=== PATIENT | female | born 1960 | race Two or more races ===

== ENCOUNTER 2018-01-20 23:34 | Emergency (ER) | payer MEDICAID, OTHER ==
[~2018-01-20] VITALS: Ht 154.9 cm; Wt 68.0 kg
[~2018-01-20 23:34] MED LIST: AURALGAN EAR DR14 ML RIGHT EAR; CORTISPORIN EAR10 M1 RIGHT EAR
[2018-01-20] MEDS ORDERED: Morphine Sulfate 4mg/ml Inj (IV USE ONLY) IVP ONE (23:45)
--- NOTE | 2018-01-20 23:47 | Emergency Room Report ---
History of Present Illness General Chief Complaint: Abdominal Pain Source: Patient, Medical Record, EMS Present Illness HPI Is a 57-year-old female with a history of intracranial bleed and is bedbound at a shelter. She has a tracheostomy and feeding tube. She also has a chronic Jones. She presents with chief complaint of abdominal pain and questionable decreased urine output. Per EMS, family said that she has decreased urine output. senior care said that she has adequate urine output. Patient complaining of lower abdominal pain. No nausea no vomiting but no fever or chills. Denies any other complaint. Allergies: Coded Allergies: No Known Allergies (Unverified , 10/21/12) Patient History Past Medical History: see triage record, old chart reviewed, DM, HTN Past Surgical History: other - tracheostomy Pertinent Family History: none Social History: Denies: smoking Now: No Immunizations: other Reviewed Nursing Documentation: PMH: Agreed; PSxH: Agreed Nursing Documentation-PMH Hx Cardiac Problems: Yes - high cholesterol Hx Hypertension: Yes Review of Systems Eye: Denies: eye pain, blurred vision ENT: Denies: ear pain, nose congestion, throat swelling Respiratory: Denies: cough, shortness of breath Cardiovascular: Denies: chest pain, palpitations Gastrointestinal: Reports: abdominal pain; Denies: diarrhea, nausea, vomiting Musculoskeletal: Denies: back pain, joint pain Skin: Denies: rash Neurological: Denies: headache, numbness Endocrine: Denies: increased thirst, increased urine Hematologic/Lymphatic: Denies: easy bruising All Other Systems: negative except mentioned in HPI Physical Exam Vital Signs Date Time Temp Pulse Resp B/P (MAP) Pulse Ox O2 Delivery O2 Flow Rate FiO2 01/20/18 23:30 96.3 84 16 178/93 100 Trach Collar 6.0 96.3 vitals with high blood pressure Sp02 EP Interpretation: reviewed, normal General Appearance: well appearing, no apparent distress, alert Head: normocephalic, atraumatic Eyes: left eye other - Left eye very injected. Yellowish discharge. 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; bilateral eye PERRL, bilateral eye EOMI ENT: hearing grossly normal, normal pharynx, other - tracheostomy Neck: full range of motion, supple, no meningismus Respiratory: chest non-tender, lungs clear, normal breath sounds Cardiovascular #1: regular rate, rhythm, no murmur Gastrointestinal: normal bowel sounds, no mass, no organomegaly, no bruit, non- distended, tenderness - suprapubic Genitourinary: other - Jones with cloudy urine Musculoskeletal: back normal, gait/station normal, normal range of motion Psychiatric: mood/affect normal Skin: warm/dry Medical Decision Making Diagnostic Impression: Primary Impression: UTI (urinary tract infection) Qualified Codes: N30.00 - Acute cystitis without hematuria Additional Impressions: Conjunctivitis Qualified Codes: H10.32 - Unspecified acute conjunctivitis, left eye Constipation Qualified Codes: K59.00 - Constipation, unspecified ER Course Patient presents with abdominal pain and has UTI with constipation. No obstruction. She also junk of it is. Most likely secondary to dryness in the 2 infection. She is blind in that eye. I put a patch over the eye. Lab Results Impression labs unremarkable CT/MRI/US Diagnostic Results CT/MRI/US Diagnostic Results : Imaging Test Ordered: CT abdomen and pelvis Impression Read by radiologist. dense feces compatible with impaction. no evidence of appendicitis. Last Vital Signs Date Time Temp Pulse Resp B/P (MAP) Pulse Ox O2 Delivery O2 Flow Rate FiO2 01/20/18 23:30 96.3 84 16 178/93 100 Trach Collar 6.0 96.3 Status: improved Disposition: XFER SNF Condition: Stable Scripts Lactulose (LACTULOSE*) 20 Gm/30 Ml Solution 30 ML ORAL BID, #240 ML 0 Refills Prov: LLOYD GIL M.D. 01/21/18 Polymyxin/Trimethoprim (Polytrim Eye Drops) 10 Ml Drops 2 DROP OPHTHALM THREE TIMES A DAY, #1 EA Instill in affected eye for 7 days Prov: LLOYD GIL M.D. 01/21/18 Cephalexin* (KEFLEX*) 500 Mg Capsule 500 MG ORAL TID, #21 CAP Prov: LLOYD GIL M.D. 01/21/18 Additional Instructions: Follow-up with your DrThomas in 2 to 3 days if not better. Return if worse. LLOYD GIL M.D. Jan 20, 2018 23:47
[2018-01-21 00:10] LABS: BILIRUBIN, URINE NEGATIVE (NEGATIVE); COLOR,URINE PALE YELLOW; GLUCOSE, URINE (UA) NEGATIVE (NEGATIVE); KETONES,URINE NEGATIVE (NEGATIVE); NITRITE,URINE NEGATIVE (NEGATIVE); PH,URINE 8 (4.5-8.0); PROTEIN,URINE 2+ (NEGATIVE); UROBILINOGEN,URINE NORMAL MG/DL (0.0-1.0)
[2018-01-21 00:17] LABS: BASOPHILS % (AUTO) 1.1 % (0.0-2.0); EOSINOPHILS % (AUTO) 2.7 % (0.0-3.0); HEMATOCRIT 39.4 % (37.0-47.0); HEMOGLOBIN 13.3 G/DL (12.0-16.0); LYMPHOCYTES % (AUTO) 28.2 % (20.0-45.0); MEAN CORPUSCULAR VOLUME 90 FL (80-99); MONOCYTES % (AUTO) 6.3 % (1.0-10.0); NEUTROPHILS % (AUTO) 61.7 % (45.0-75.0); PLATELET COUNT 384 K/UL (150-450); RED BLOOD COUNT 4.39 M/UL (4.20-5.40); RED CELL DISTRIBUTION WIDTH 11.8 % (11.6-14.8); WHITE BLOOD COUNT 13.6 K/UL (4.8-10.8)
[2018-01-21 00:19] LABS: ANION GAP 4 mmol/L (5-15); BLOOD UREA NITROGEN 10 mg/dL (7-18); CALCIUM 9.2 MG/DL (8.5-10.1); CARBON DIOXIDE 37 MMOL/L (21-32); CHLORIDE 102 MMOL/L (98-107); CREATININE 0.4 MG/DL (0.55-1.30); POTASSIUM 3.3 MMOL/L (3.5-5.1); SODIUM 143 MMOL/L (136-145)
[2018-01-21 00:19] LABS: APPEARANCE,URINE CLOUDY; LEUKOCYTE ESTERASE ,URINE 1+ (NEGATIVE)
[2018-01-21 00:30] VITALS: BP 152/91
[2018-01-21] MEDS ORDERED: cefTRIAXone 1 GM in NS 55 ML IVPB ONE (00:45)
[2018-01-21] MEDS ORDERED: Isovue-300 100ml vial INJ PRN (00:45)
[2018-01-21 02:30] VITALS: BP 148/85
[2018-01-21] MEDS ORDERED: LACTULOSE20 GM/301 ORAL (02:52)
[2018-01-21] MEDS ORDERED: CEPHALEXIN500 MG ORAL (02:52)
[2018-01-21] MEDS ORDERED: POLYTRIM OP SOL10 ML OPHTHALM (02:52)
[2018-01-21 04:30] VITALS: BP 146/85
[2018-01-21 04:50] VITALS: BP 148/85
--- NOTE | 2018-01-21 12:03 | Diagnostic Imaging Report ---
Clinical Indication: Abdominal pain for 3 days Technique: No oral contrast utilized, per emergency room physician request IV administration nonionic contrast. Venous phase spiral acquisition obtained through the abdomen and pelvis. Multiplanar reconstructions were generated. Total dose length product 1080.78 mGycm. CTDIvol(s) 19.75 mGy. Dose reduction achieved using automated exposure control Comparison: none Findings: The appendix is normal, best appreciated on the coronal images. Moderate amount of retained stool is seen throughout the colon. There is mild distention of the rectum with feces. No colon wall thickening or significant pericolonic inflammation demonstrated. No small bowel distention. There is a gastrostomy tube in apparent satisfactory position. Distal esophagus, duodenum are unremarkable. No free or loculated intraperitoneal gas or fluid is evident. The liver, gallbladder, bile ducts, pancreas, spleen, adrenals are all unremarkable. The kidneys demonstrate bilateral subcentimeter low-attenuation lesions which are too small to characterize. No renal or ureteral calculi, hydronephrosis, or hydroureter. No retroperitoneal or mesenteric mass or adenopathy. No pelvic mass or adenopathy. The bladder is empty, contains a Jones catheter. There is equivocal bladder wall thickening, versus artifact of under distention The included lung bases demonstrate some confluent opacity, likely scarring, with volume loss and bronchiectasis in the posterior medial left lower lobe. There is a small amount of pleural fluid as well as some compressive atelectasis of portions of the left lower lobe. There is also trace right pleural fluid and some right basilar atelectasis. The heart is enlarged. There is a small pericardial effusion, measures up to 5 mm thick. The bones demonstrate anterior offset of L4 on L5, presumably due to facet degeneration as no pars defect is demonstrated. Subcentimeter low-attenuation renal lesions, too small to characterize, most likely benign simple cortical cysts. No further follow-up necessary heterotopic ossification is seen surrounding the right posterior acetabulum Impression: Evidence of mild rectal fecal impaction Evidence of mild constipation elsewhere in the colon No other acute abnormality Left lower lobe confluent opacity, likely scarring. Associated bronchiectasis. Small amount of pleural fluid seen on the left Trace right pleural fluid and trace right basilar atelectasis Cardiomegaly. Small pericardial effusion Jones catheter. Apparent bladder wall thickening, artifact of under distention but cystitis also possible Other findings as noted, including gastrostomy, lumbar spine alignment abnormality, heterotopic ossification in the right hip/buttock region This agrees with the preliminary interpretation provided overnight by [facility] teleradiology service. . The CT scanner at [facility] is accredited by the [employer] and the scans are performed using protocols designed to limit radiation exposure to as low as reasonably achievable to attain images of sufficient resolution adequate for diagnostic evaluation.
== END 2018-01-21 04:50 ==
LOC: EDBD 23:34 → EMR 23:47
DX: N30.00 Acute cystitis without hematuria (principal); H10.32 Unspecified acute conjunctivitis, left eye; K59.00 Constipation, unspecified; I10 Essential (primary) hypertension; E78.00 Pure hypercholesterolemia, unspecified; E11.9 Type 2 diabetes mellitus without complications; Z93.0 Tracheostomy status; Z74.01 Bed confinement status; Z86.79 Personal history of other diseases of the circulatory system
CPT/HCPCS: 36415; 74177; 80048; 81003; 85025; 87086; 87181; 96365; 96375; 99285; J0696; J2270; J2405; Q9967

== ENCOUNTER 2018-08-16 11:04 | Inpatient (IN) | payer OTHER ==
[~2018-08-16] VITALS: Ht 162.6 cm; Wt 84.4 kg
[~2018-08-16 11:04] MED LIST changes: +CEPHALEXIN500 MG ORAL; +LACTULOSE20 GM/301 ORAL; +POLYTRIM OP SOL10 ML OPHTHALM
--- NOTE | 2018-08-16 11:10 | NUR ---
ED Nurse Note:pt. was BIBA from SNF with chest pain , pt. was placed on mech vent -has trach, VSS, A/Ox1 at this time, given IV fluids, pt. has Gtube, placed on stringed instrument tuner and air way suction was done ,skin is intact
--- NOTE | 2018-08-16 11:15 | NUR ---
RESPIRATORY NOTE: Patient came in via AMBU bag into ED , patient is trach with a Portex 7, large amounts of secretions oral and tracheal. Patient is vent dependent and put on settings AC 500, 16, 40%, +5. All alarms are set and audible, AMBU bag bedside, and plugged into red outlet. Will continue to monitor patient.
--- NOTE | 2018-08-16 11:17 | Emergency Room Report ---
History of Present Illness General Chief Complaint: Chest Pain Source: Medical Record, PMD Present Illness HPI Patient is a 57-year-old female brought in by EMS for chest discomfort and increased difficulty breathing. Patient had been given aspirin as well as nitroglycerin by EMS. 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 Patient was noted to be sent in from [facility]. She is noted to have increased tracheal secretions as well as nasal congestion and coughing.Patient was noted to have G-tube dependence. Patient was noted to be awake and able to speak Greenlandic. Allergies: Coded Allergies: MILK (Verified Allergy, Unknown, 08/16/18) Patient History Past Medical History: see triage record Reviewed Nursing Documentation: PMH: Agreed; PSxH: Agreed Nursing Documentation-PMH Past Medical History: No History, Except For Hx Cardiac Problems: Yes - high cholesterol Hx Hypertension: Yes Review of Systems All Other Systems: limited - by mental status Physical Exam Vital Signs Date Time Temp Pulse Resp B/P (MAP) Pulse Ox O2 Delivery O2 Flow Rate FiO2 08/16/18 11:03 99.5 80 18 164/94 96 Mechanical Ventilator General Appearance: alert, moderate distress, obese, Chronically Ill Neck: tracheotomy Respiratory: rhonchi Cardiovascular #1: tachycardia Gastrointestinal: normal inspection, non tender, soft, other - gtube present Musculoskeletal: normal inspection Neurologic: motor weakness - left side facial droo Psychiatric: anxious Procedures Critical Care Time Critical Care Time Patient had a critical medical condition which untreated could potentially result in life or limb threatening injury. Total critical care time excluding procedures approximately 45 minutes. Medical Decision Making Diagnostic Impression: Primary Impression: Pneumonia Additional Impression: Tracheostomy dependence ER Course Patient presented from shelter for chest pain. Differential diagnosis include was not limited to pulmonary embolism, pneumonia, influenza, pericarditis among others. Because of complexity of patient's case laboratory testing and imaging studies were ordered. CT of the chest was ordered due to patient's risk for pulmonary embolism.Patient was noted to have CT of chest with cardiomegaly as well as a left-sided infiltrate. Patient did have a small pleural effusion.Patient was started on IV Zosyn as well as vancomycin. Blood cultures were obtained. There is no evidence of pulmonary embolism. Dr. Fox was contacted for inpatient management due to primary care physician Labs Test 08/16/18 11:00 White Blood Count 12.9 K/UL (4.8-10.8) Red Blood Count 4.51 M/UL (4.20-5.40) Hemoglobin 13.8 G/DL (12.0-16.0) Hematocrit 42.5 % (37.0-47.0) Mean Corpuscular Volume 94 FL (80-99) Mean Corpuscular Hemoglobin 30.7 PG (27.0-31.0) Mean Corpuscular Hemoglobin Concent 32.5 G/DL (32.0-36.0) Red Cell Distribution Width 11.1 % (11.6-14.8) Platelet Count 395 K/UL (150-450) Mean Platelet Volume 6.3 FL (6.5-10.1) Neutrophils (%) (Auto) 60.6 % (45.0-75.0) Lymphocytes (%) (Auto) 32.0 % (20.0-45.0) Monocytes (%) (Auto) 4.7 % (1.0-10.0) Eosinophils (%) (Auto) 1.3 % (0.0-3.0) Basophils (%) (Auto) 1.4 % (0.0-2.0) Urine Color Pale yellow Urine Appearance Clear Urine pH 7 (4.5-8.0) Urine Specific [place] 1.015 (1.005-1.035) Urine Protein Negative (NEGATIVE) Urine Glucose (UA) Negative (NEGATIVE) Urine Ketones Negative (NEGATIVE) Urine Blood 2+ (NEGATIVE) Urine Nitrite Negative (NEGATIVE) Urine Bilirubin Negative (NEGATIVE) Urine Urobilinogen Normal MG/DL (0.0-1.0) Urine Leukocyte Esterase Negative (NEGATIVE) Urine RBC 0-2 /HPF (0 - 2) Urine WBC 0-2 /HPF (0 - 2) Urine Squamous Epithelial Cells Occasional /LPF Urine Bacteria Occasional /HPF (NONE) Sodium Level 138 MMOL/L (136-145) Potassium Level 5.2 MMOL/L (3.5-5.1) Chloride Level 101 MMOL/L (98-107) Carbon Dioxide Level 29 MMOL/L (21-32) Anion Gap 8 mmol/L (5-15) Blood Urea Nitrogen 17 mg/dL (7-18) Creatinine 0.5 MG/DL (0.55-1.30) Estimat Glomerular Filtration Rate > 60 mL/min (>60) Glucose Level 92 MG/DL (74-106) Lactic Acid Level 2.60 mmol/L (0.4-2.0) Calcium Level 9.9 MG/DL (8.5-10.1) Phosphorus Level 4.0 MG/DL (2.5-4.9) Magnesium Level 1.9 MG/DL (1.8-2.4) Total Bilirubin 0.3 MG/DL (0.2-1.0) Aspartate Amino Transf (AST/SGOT) 21 U/L (15-37) Alanine Aminotransferase (ALT/SGPT) 40 U/L (12-78) Alkaline Phosphatase 106 U/L (46-116) Total Creatine Kinase 86 U/L (26-308) Creatine Kinase MB 0.7 NG/ML (0.0-3.6) Creatine Kinase MB Relative Index 0.8 Troponin I 0.000 ng/mL (0.000-0.056) Pro-B-Type Natriuretic Peptide 43 pg/mL (0-125) Total Protein 8.4 G/DL (6.4-8.2) Albumin 3.3 G/DL (3.4-5.0) Globulin 5.1 g/dL Albumin/Globulin Ratio 0.6 (1.0-2.7) EKG Diagnostic Results Rate: tachycardiac - 106 Rhythm: NSR ST Segments: no acute changes Rhythm Strip Diag. Results EP Interpretation: yes Rhythm: no PVC's, no ectopy Last Vital Signs Date Time Temp Pulse Resp B/P (MAP) Pulse Ox O2 Delivery O2 Flow Rate FiO2 08/16/18 11:03 99.5 80 18 164/94 96 Mechanical Ventilator Status: unchanged Disposition: ADMITTED INPATIENT Condition: Serious Pablo Dyer MD Aug 16, 2018 11:17
--- NOTE | 2018-08-16 11:24 | NUR ---
ED Nurse Note:blood blood cx urine and swab sent to labs, given IV fluids , F/C incerted
[2018-08-16 11:30] VITALS: BP 151/104
[2018-08-16] MEDS ORDERED: PROMETHAZI6.25 MG/1 GT (11:30)
[2018-08-16] MEDS ORDERED: ACIDOPHILUS-PE1 EAC1 GT (11:30)
[2018-08-16] MEDS ORDERED: UTI-STAT L3875 MG/31 GT (11:30)
[2018-08-16] MEDS ORDERED: KEPPRA LIQ100 MG/1 M GT (11:30)
[2018-08-16] MEDS ORDERED: HYDRALAZINE HCL10 MG GT (11:30)
[2018-08-16] MEDS ORDERED: ALBUTEROL2.5 MG/3 M INH (11:30)
[2018-08-16] MEDS ORDERED: FLEET ENEMA133 ML RECTAL (11:30)
[2018-08-16] MEDS ORDERED: COLACE100 MG GT (11:30)
[2018-08-16] MEDS ORDERED: FAMOTIDINE20 MG GT (11:30)
[2018-08-16] MEDS ORDERED: NORVASC5 MG GT (11:30)
[2018-08-16] MEDS ORDERED: LACTULOSE20 GM/301 GT (11:30)
[2018-08-16] MEDS ORDERED: MULTIVITAMINS1 EAC8 GT (11:30)
[2018-08-16] MEDS ORDERED: HIBICLENS118 ML ORAL (11:30)
[2018-08-16] MEDS ORDERED: Isovue-370 150ml vial INJ PRN (11:30)
[2018-08-16] MEDS ORDERED: VITAMIN D250000 UNI1 GT (11:30)
[2018-08-16] MEDS ORDERED: PRO-STAT LIQUID30 ML GT (11:30)
[2018-08-16] MEDS ORDERED: ATORVASTATIN CA20 MG GT (11:30)
[2018-08-16] MEDS ORDERED: IBUPROFEN600 MG GT (11:30)
[2018-08-16] MEDS ORDERED: ARTIFICIAL TEAR15 ML BOTH EYES (11:30)
[2018-08-16 11:33] LABS: BASOPHILS % (AUTO) 1.4 % (0.0-2.0); EOSINOPHILS % (AUTO) 1.3 % (0.0-3.0); HEMATOCRIT 42.5 % (37.0-47.0); HEMOGLOBIN 13.8 G/DL (12.0-16.0); MEAN CORPUSCULAR VOLUME 94 FL (80-99); MONOCYTES % (AUTO) 4.7 % (1.0-10.0); NEUTROPHILS % (AUTO) 60.6 % (45.0-75.0); PLATELET COUNT 395 K/UL (150-450); RED BLOOD COUNT 4.51 M/UL (4.20-5.40); RED CELL DISTRIBUTION WIDTH 11.1 % (11.6-14.8); WHITE BLOOD COUNT 12.9 K/UL (4.8-10.8)
[2018-08-16 11:36] LABS: APPEARANCE,URINE CLEAR; BILIRUBIN, URINE NEGATIVE (NEGATIVE); COLOR,URINE PALE YELLOW; GLUCOSE, URINE (UA) NEGATIVE (NEGATIVE); KETONES,URINE NEGATIVE (NEGATIVE); LEUKOCYTE ESTERASE ,URINE NEGATIVE (NEGATIVE); NITRITE,URINE NEGATIVE (NEGATIVE); PH,URINE 7 (4.5-8.0); PROTEIN,URINE NEGATIVE (NEGATIVE); UROBILINOGEN,URINE NORMAL MG/DL (0.0-1.0)
[2018-08-16 11:45] LABS: ANION GAP 8 mmol/L (5-15); BLOOD UREA NITROGEN 17 mg/dL (7-18); CALCIUM 9.9 MG/DL (8.5-10.1); CARBON DIOXIDE 29 MMOL/L (21-32); CHLORIDE 101 MMOL/L (98-107); CREATININE 0.5 MG/DL (0.55-1.30); POTASSIUM 5.2 MMOL/L (3.5-5.1); SODIUM 138 MMOL/L (136-145)
[2018-08-16 11:57] LABS: ALANINE AMINOTRANSFERASE 40 U/L (12-78); ALBUMIN 3.3 G/DL (3.4-5.0); ALBUMIN/GLOBULIN RATIO 0.6 (1.0-2.7); ALKALINE PHOSPHATASE 106 U/L (46-116); ASPARTATE AMINO TRANSFERASE 21 U/L (15-37); BILIRUBIN,TOTAL 0.3 MG/DL (0.2-1.0); CKMB 0.7 NG/ML (0.0-3.6); CREATINE KINASE 86 U/L (26-308)
--- NOTE | 2018-08-16 12:43 | Diagnostic Imaging Report ---
EXAM: CT Angiography Chest With Intravenous Contrast CLINICAL HISTORY: Shortness of breath TECHNIQUE: Axial computed tomographic angiography images of the chest with intravenous contrast using pulmonary embolism protocol. CTDI is 95 mGy and DLP is 1222 mGy-cm. One or more of the following dose reduction techniques were used: automated exposure control, adjustment of the mA and/or kV according to patient size, use of iterative reconstruction technique. MIP reconstructed images were created and reviewed. Coronal and sagittal reformatted images were created and reviewed. COMPARISON: No relevant prior studies available. FINDINGS: Pulmonary arteries: No evidence of pulmonary embolism. Aorta: Atherosclerotic calcifications are noted within the aortic arch. No thoracic aortic aneurysm or dissection. Lungs: Bronchiectasis with mild volume loss and consolidation in the left lower lobe, which may suggest atelectasis versus pneumonia. Minimal dependent atelectasis in the right lower lobe. Pleural space: Small layering left pleural effusion. No pneumothorax. Heart: Cardiomegaly. No significant pericardial effusion. No evidence of RV dysfunction. Bones/joints: Remote healed fractures of the lateral aspects of the left 3rd through 6th ribs. Multilevel degenerative changes throughout the visualized spine with disc space loss and endplate osteophytes. No dislocation. Soft tissues: Unremarkable. Lymph nodes: Unremarkable. No enlarged lymph nodes. Tubes, lines and devices: Tracheostomy tube in place with expected positioning. IMPRESSION: 1. No evidence of pulmonary embolism. 2. Bronchiectasis with mild volume loss and consolidation in the left lower lobe, which may suggest atelectasis versus pneumonia. 3. Small layering left pleural effusion.
[2018-08-16] MEDS ORDERED: Vancomycin 1.5gm Premix 275 ML IVPB ONE (12:45)
[2018-08-16] MEDS ORDERED: Piperacillin/Tazobactam 3.375 GM in NS 110 ML IVPB ONE (12:45)
[2018-08-16] MEDS ORDERED: Vancomycin 1.5gm vial IVPB ONE (13:05)
[2018-08-16 13:42] VITALS: BP 124/75
--- NOTE | 2018-08-16 13:45 | NUR ---
NURSE NOTES: Received pt from AUGIE Infante via hospital bed, in stable condition with no cardiopulmonary distress noted. RT present and hooked pt trach to vent AC 16 TV 500 FiO2 40% Peep %. Pt AAOx3. Family present at bedside. Pt has 18g right hand IV and 20g L hand IV patent. Pt hooked to hospital monitor. GT noted and clamped at this time. Skin is intact. Scattered eczema-like rash present on bilat ankles and throughout thighs. Pt denies pain at this time. VS as follows: BP 134/78 HR 86bpm Temp 98.2F ax RR 16 and SaO2 97%. Pt belongings will remain with pt. Bed in lowest position. Side rails up x 3 and padded for seizure precaution. Call light within reach. Will monitor pt.
[2018-08-16 14:00] VITALS: BP 134/78
[2018-08-16] MEDS ORDERED: Morphine Sulfate 4mg/ml Inj (IV USE ONLY) IVP PRN (14:00)
[2018-08-16] MEDS ORDERED: LORazepam Inj 2mg/ml 1ml IV PRN (14:00)
[2018-08-16] MEDS ORDERED: Albuterol/Ipratropium 3ml neb HHN PRN (14:00)
[2018-08-16] MEDS ORDERED: Miralax 17gm pkt GT PRN (14:00)
--- NOTE | 2018-08-16 14:00 | Consultation ---
History of Present Illness General Date patient seen: Aug 16, 2018 Chief Complaint: Chest Pain Present Illness HPI 57-year-old female with hx of Caridac arrest, chronic trach and PEG, bed bound brought in by EMS for chest discomfort and increased difficulty breathing. She is noted to have increased tracheal secretions as well as nasal congestion and coughing. CTA done to rule out PE showed LLL infiltrate. She is admitted to [facility] for further management. Allergies: Coded Allergies: MILK (Verified Allergy, Unknown, 08/16/18) Medication History Scheduled Amino Acids/Protein Hydrolys (Pro-Stat Liquid), 30 ML GT DAILY, (Reported) Amlodipine Besylate (Norvasc), 5 MG GT DAILY, (Reported) Atorvastatin Calcium* (Atorvastatin Calcium*), 10 MG GT BEDTIME, (Reported) Cephalexin* (Keflex*), 500 MG ORAL TID Cran/Vitc/Mannose/Inulin/Brom (Uti-Stat Liquid), 3,875 MG GT TWICE A DAY, ( Reported) Docusate Sodium* (Colace*), 100 MG GT DAILY, (Reported) Ergocalciferol (Vitamin D2)* (Vitamin D*), 50,000 UNIT GT ONCE A WEEK, (Reported ) Famotidine (Famotidine), 20 MG GT TWICE A DAY, (Reported) Hydralazine Hcl* (Hydralazine Hcl*), 10 MG GT EVERY 6 HOURS, (Reported) Lactobacillus Acidophilus/Pect (Acidophilus-Pectin Tab Chew), 1 EACH GT DAILY, ( Reported) Lactulose (Lactulose*), 30 ML ORAL BID Lactulose (Lactulose*), 30 ML GT TWICE A DAY, (Reported) Levetiracetam (Keppra), 5 ML GT Q12HR, (Reported) Multivitamin With Minerals (Multivitamins With Minerals*), 1 TAB GT DAILY, ( Reported) Na Phos,M-B/Na Phos,Di-Ba* (Fleet Enema*), 133 ML RECTAL PRN, (Reported) Polymyxin/Trimethoprim (Polytrim Eye Drops), 2 DROP OPHTHALM THREE TIMES A DAY Promethazine Hcl (Promethazine Hcl*), 5 ML GT Q6H, (Reported) Scheduled PRN Albuterol Sulfate* (Albuterol Sulfate Hhn*), 3 ML INH Q4H PRN for Shortness of Breath, (Reported) Ibuprofen* (Motrin*), 400 MG GT Q6H PRN for For Pain, (Reported) Miscellaneous Medications Chlorhexidine Gluconate* (Hibiclens*), 15 ML ORAL, (Reported) Dextran 70/Hypromellose (Artificial Tears Eye Drops*), 2 DROP BOTH EYES, ( Reported) Patient History Healthcare decision maker Resuscitation status Advanced Directive on File Past Medical/Surgical History Past Medical/Surgical History: (1) Cardiac arrest (2) Nosocomial pneumonia (3) Feeding by G-tube (4) Tracheostomy dependence Review of Systems All Other Systems: negative except mentioned in HPI Physical Exam General Appearance: WD/WN Lines, tubes and drains: peripheral HEENT: normocephalic Neck: non-tender, normal alignment Respiratory/Chest: chest wall non-tender, rhonchi - left, rhonchi - right Cardiovascular/Chest: normal peripheral pulses, normal rate Abdomen: normal bowel sounds Genitourinary/Rectal: normal genital exam Extremities: normal range of motion Last 24 Hour Vital Signs Date Time Temp Pulse Resp B/P (MAP) Pulse Ox O2 Delivery O2 Flow Rate FiO2 08/16/18 13:43 99.5 90 16 124/75 100 Mechanical Ventilator 40 08/16/18 13:42 90 16 124/75 100 Mechanical Ventilator 40 08/16/18 13:29 80 16 40 08/16/18 11:30 85 18 Mechanical Ventilator 40 08/16/18 11:30 99.5 85 18 151/104 100 Mechanical Ventilator 40 08/16/18 11:15 85 18 40 08/16/18 11:03 99.5 80 18 164/94 96 Mechanical Ventilator Laboratory Tests Test 08/16/18 11:00 08/16/18 13:25 White Blood Count 12.9 K/UL (4.8-10.8) H Red Blood Count 4.51 M/UL (4.20-5.40) Hemoglobin 13.8 G/DL (12.0-16.0) Hematocrit 42.5 % (37.0-47.0) Mean Corpuscular Volume 94 FL (80-99) Mean Corpuscular Hemoglobin 30.7 PG (27.0-31.0) Mean Corpuscular Hemoglobin Concent 32.5 G/DL (32.0-36.0) Red Cell Distribution Width 11.1 % (11.6-14.8) L Platelet Count 395 K/UL (150-450) Mean Platelet Volume 6.3 FL (6.5-10.1) L Neutrophils (%) (Auto) 60.6 % (45.0-75.0) Lymphocytes (%) (Auto) 32.0 % (20.0-45.0) Monocytes (%) (Auto) 4.7 % (1.0-10.0) Eosinophils (%) (Auto) 1.3 % (0.0-3.0) Basophils (%) (Auto) 1.4 % (0.0-2.0) Urine Color Pale yellow Urine Appearance Clear Urine pH 7 (4.5-8.0) Urine Specific [place] 1.015 (1.005-1.035) Urine Protein Negative (NEGATIVE) Urine Glucose (UA) Negative (NEGATIVE) Urine Ketones Negative (NEGATIVE) Urine Blood 2+ (NEGATIVE) H Urine Nitrite Negative (NEGATIVE) Urine Bilirubin Negative (NEGATIVE) Urine Urobilinogen Normal MG/DL (0.0-1.0) Urine Leukocyte Esterase Negative (NEGATIVE) Urine RBC 0-2 /HPF (0 - 2) Urine WBC 0-2 /HPF (0 - 2) Urine Squamous Epithelial Cells Occasional /LPF Urine Bacteria Occasional /HPF (NONE) Sodium Level 138 MMOL/L (136-145) Potassium Level 5.2 MMOL/L (3.5-5.1) H Chloride Level 101 MMOL/L (98-107) Carbon Dioxide Level 29 MMOL/L (21-32) Anion Gap 8 mmol/L (5-15) Blood Urea Nitrogen 17 mg/dL (7-18) Creatinine 0.5 MG/DL (0.55-1.30) L Estimat Glomerular Filtration Rate > 60 mL/min (>60) Glucose Level 92 MG/DL (74-106) Lactic Acid Level 2.60 mmol/L (0.4-2.0) H Calcium Level 9.9 MG/DL (8.5-10.1) Phosphorus Level 4.0 MG/DL (2.5-4.9) Magnesium Level 1.9 MG/DL (1.8-2.4) Total Bilirubin 0.3 MG/DL (0.2-1.0) Aspartate Amino Transf (AST/SGOT) 21 U/L (15-37) Alanine Aminotransferase (ALT/SGPT) 40 U/L (12-78) Alkaline Phosphatase 106 U/L (46-116) Total Creatine Kinase 86 U/L (26-308) Creatine Kinase MB 0.7 NG/ML (0.0-3.6) Creatine Kinase MB Relative Index 0.8 Troponin I 0.000 ng/mL (0.000-0.056) Pro-B-Type Natriuretic Peptide 43 pg/mL (0-125) Total Protein 8.4 G/DL (6.4-8.2) H Albumin 3.3 G/DL (3.4-5.0) L Globulin 5.1 g/dL Albumin/Globulin Ratio 0.6 (1.0-2.7) L Arterial Blood pH 7.411 (7.350-7.450) Arterial Blood Partial Pressure CO2 44.4 mmHg (35.0-45.0) Arterial Blood Partial Pressure O2 105.5 mmHg (75.0-100.0) H Arterial Blood HCO3 27.6 mmol/L (22.0-26.0) H Arterial Blood Oxygen Saturation 97.6 % (95-100) Arterial Blood Base Excess 2.5 (-2-2) H Harry Test Positive Microbiology Date/Time Source Procedure Growth Status 08/16/18 11:00 Nasal Nares Influenza Types A,B Antigen (GAYLA) - Final Complete Height (Feet): 5 Height (Inches): 4.00 Weight (Pounds): 190 Medications Current Medications Medications (Trade) Dose Ordered Sig/Marzena Route PRN Reason Start Time Stop Time Status Last Admin Dose Admin Iopamidol (Isovue-370 150ml) 150 ml NOW PRN INJ Radiology Procedure 08/16/18 11:30 08/18/18 11:22 Vancomycin HCl/ Dextrose 275 ml @ 137.5 mls/ hr ONCE ONCE IVPB 08/16/18 12:45 08/16/18 14:44 08/16/18 13:07 Assessment/Plan Problem List: (1) Acute on chronic respiratory failure ICD Codes: J96.20 - Acute and chronic respiratory failure, unspecified whether with hypoxia or hypercapnia SNOMED: 53032311 (2) Feeding by G-tube ICD Codes: Z93.1 - Gastrostomy status SNOMED: 021127485, 651593043, 111163621 (3) Sepsis ICD Codes: A41.9 - Sepsis, unspecified organism SNOMED: 49318018 (4) Nosocomial pneumonia ICD Codes: J18.9 - Pneumonia, unspecified organism; Y95 - Nosocomial condition SNOMED: 578269713 (5) Tracheostomy dependence ICD Codes: Z93.0 - Tracheostomy status SNOMED: 828367877 Respiratory: adjust tidal volume, monitor respiratory rate, adjust FIO2, CXR Cardiac: continue to monitor HR/BP Renal: F/U I&O, keep IV fluid Infectious Disease: check cultures, continue antibiotics Gastrointestinal: start feedings Endocrine: monitor blood sugar Hematologic: monitor H/H Neurologic: PRN Ativan Affect: PRN ativan Prophylaxis: Protonix Time Spent (Minutes): 40 Notes 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
--- NOTE | 2018-08-16 14:03 | NUR ---
ED Nurse Note:pt. was transfered to SDU, condition stable, report given to Mikaela GHOSH
[2018-08-16] MEDS ORDERED: Dextrose 50% 25ml Syringe IV PRN (14:15)
[2018-08-16 16:00] VITALS: BP 151/97
[2018-08-16] MEDS: Lactulose 20gm/30ml UDC GT SCH (17:50)
[2018-08-16] MEDS: HydrALAZINE 10mg Tab GT SCH ×2 (17:50→23:45)
[2018-08-16] MEDS: NovoLOG Insulin Flexpen SUBQ SCH ×2 (17:51→23:46)
--- NOTE | 2018-08-16 19:04 | NUR ---
HAND-OFF: Report given to AUGIE Su. Stable condition.
--- NOTE | 2018-08-16 19:04 | NUR ---
NURSE NOTES: Received report from Milton Urena RN. Patient is awake in bed, A/O x2. No s/s of acute distress noted. Sinus rhythm on land inspector. Saturating well on trach-vent settings: Portex 7, AC 16, Vt 500, FiO2 40%, PEEP 5. Receiving Vital AF 1.2 @ 75 cc/hr and tolerating well. Jones catheter intact and draining well to gravity. Left hand 20g IV saline lock, intact and patent; right hand 18g IV saline lock, intact and patent. Bed locked in lowest position with padded side rails up x3. Call light left within reach, family remains at bedside. Will continue to monitor.
[2018-08-16 20:00] VITALS: BP 128/77
[2018-08-16] MEDS: Heparin 5000 units/ml inj SUBQ SCH (21:11)
[2018-08-17] VITALS: BP 120/77
[2018-08-17] MEDS: Vancomycin 750mg/NS 275ml IVPB SCH ×4 (01:16→12:24)
--- NOTE | 2018-08-17 01:37 | Diagnostic Imaging Report ---
EXAM: XR Chest, 1 View CLINICAL HISTORY: SOB TECHNIQUE: Frontal view of the chest. COMPARISON: CT chest dated 08/16/2018 FINDINGS: Lungs: See below. Pleural space: Opacity in the left lung base which may represent pleural effusion and atelectasis. Pneumonia is not excluded. No pneumothorax. Heart: Heart is enlarged. Mediastinum: Unremarkable. Bones/joints: Unremarkable. Tubes, lines and devices: Tracheostomy cannula within the thoracic inlet. IMPRESSION: Opacity in the left lung base which may represent pleural effusion and atelectasis. Pneumonia is not excluded.
--- NOTE | 2018-08-17 02:00 | NUR ---
NURSE NOTES: Jones catheter removed.
[2018-08-17 04:00] VITALS: BP 125/79
[2018-08-17 05:38] LABS: BASOPHILS % (AUTO) 0.9 % (0.0-2.0); EOSINOPHILS % (AUTO) 1.6 % (0.0-3.0); HEMATOCRIT 37.6 % (37.0-47.0); HEMOGLOBIN 12.4 G/DL (12.0-16.0); LYMPHOCYTES % (AUTO) 24.2 % (20.0-45.0); MEAN CORPUSCULAR VOLUME 95 FL (80-99); MONOCYTES % (AUTO) 4.7 % (1.0-10.0); NEUTROPHILS % (AUTO) 68.6 % (45.0-75.0); PLATELET COUNT 371 K/UL (150-450); RED BLOOD COUNT 3.97 M/UL (4.20-5.40); RED CELL DISTRIBUTION WIDTH 11.3 % (11.6-14.8); WHITE BLOOD COUNT 12.5 K/UL (4.8-10.8)
[2018-08-17 06:03] LABS: ANION GAP 10 mmol/L (5-15); BLOOD UREA NITROGEN 16 mg/dL (7-18); CALCIUM 9.7 MG/DL (8.5-10.1); CARBON DIOXIDE 29 MMOL/L (21-32); CHLORIDE 104 MMOL/L (98-107); CREATININE 0.5 MG/DL (0.55-1.30); PHOSPHORUS 4.1 MG/DL (2.5-4.9); POTASSIUM 3.8 MMOL/L (3.5-5.1); SODIUM 143 MMOL/L (136-145)
[2018-08-17] MEDS: HydrALAZINE 10mg Tab GT SCH ×3 (06:06→18:22)
[2018-08-17] MEDS: NovoLOG Insulin Flexpen SUBQ SCH ×3 (06:07→18:24)
[2018-08-17 06:15] LABS: ANION GAP 14 mmol/L (5-15); BLOOD UREA NITROGEN 17 mg/dL (7-18); CALCIUM 9.6 MG/DL (8.5-10.1); CARBON DIOXIDE 26 MMOL/L (21-32); CHLORIDE 104 MMOL/L (98-107); CREATININE 0.5 MG/DL (0.55-1.30); POTASSIUM 4.3 MMOL/L (3.5-5.1); SODIUM 144 MMOL/L (136-145)
[2018-08-17] MEDS: Acetaminophen 650mg/20.3ml GT PRN (06:49)
--- NOTE | 2018-08-17 07:30 | NUR ---
HAND-OFF: Report given to Marifer Ta RN.
[2018-08-17 08:00] VITALS: BP 120/85
--- NOTE | 2018-08-17 08:10 | NUR ---
NURSE NOTES: received pt in the bed, awake, vent dependent, vital signs stable, no co pain, no SOB, skin warm and dry to touch, intact, tolerate GT feeding well, yellow urine, bed in low position, HOB elevated.
[2018-08-17] MEDS: Pantoprazole Inj IV SCH (08:44)
[2018-08-17] MEDS: Lactulose 20gm/30ml UDC GT SCH ×2 (08:44→18:22)
[2018-08-17] MEDS: Heparin 5000 units/ml inj SUBQ SCH ×2 (08:45→21:57)
--- NOTE | 2018-08-17 09:00 | NUR ---
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 VENTILATOR DEPENDENT VS: BP 151/104, P 85, T 99.5, RR 18, SpO2 100 on Vent FiO2 40 WBC 12.9, pO2 105.5, HCO3 27.6, CR 0.5, Lactic Acid 3.00, Urine Blood 2+ CXR Impression: Opacity in the left lung base which may represent plueral effusion and atelectasis. Pneumonia is not excluded. IS:NS x1L IV VANCOMYCIN 275ml IVPB PIPERACILLIN 110ml ADMITTED TO SDU DC PLAN: RETURN TO [facility]
--- NOTE | 2018-08-17 09:45 | Pulmonolgy Critical Care Note ---
Critical Care - Asmt/Plan Problems: (1) Acute on chronic respiratory failure (2) Nosocomial pneumonia (3) Cardiac arrest (4) Feeding by G-tube (5) Sepsis Respiratory: monitor respiratory rate, adjust FIO2, CXR Cardiac: continue to monitor HR/BP Renal: F/U I&O, check electrolytes Infectious Disease: check cultures, continue antibiotics Gastrointestinal: hold feedings Endocrine: monitor blood sugar, continue sliding scale insulin Hematologic: monitor H/H, transfuse if hgb<8.5 Neurologic: PRN Morphine, keep patient comfortable Affect: PRN ativan Prophylaxis: Protonix, Heparin Time Spent (Minutes): 40 Notes 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 Critical Care - Objective Last 24 Hour Vital Signs Date Time Temp Pulse Resp B/P (MAP) Pulse Ox O2 Delivery O2 Flow Rate FiO2 08/17/18 08:45 75 120/85 08/17/18 08:00 40 08/17/18 08:00 Mechanical Ventilator 08/17/18 08:00 99.3 75 16 120/85 (97) 100 08/17/18 06:40 77 16 40 08/17/18 06:06 125/79 08/17/18 05:08 79 16 40 08/17/18 04:00 40 08/17/18 04:00 Mechanical Ventilator 08/17/18 04:00 99.1 78 16 125/79 (94) 99 08/17/18 03:22 71 08/17/18 03:17 75 16 40 08/17/18 02:09 72 18 Mechanical Ventilator 40 08/17/18 02:00 Mechanical Ventilator 08/17/18 01:01 76 16 40 08/17/18 00:00 Mechanical Ventilator 08/17/18 00:00 99.0 70 16 120/77 (91) 97 08/16/18 23:45 127/81 08/16/18 23:33 71 08/16/18 22:45 68 16 40 08/16/18 21:28 76 16 40 08/16/18 20:00 Mechanical Ventilator 08/16/18 20:00 40 08/16/18 20:00 99.4 73 17 128/77 (94) 100 08/16/18 19:27 76 08/16/18 19:00 70 16 40 08/16/18 17:50 151/97 08/16/18 17:10 69 16 40 08/16/18 16:00 40 08/16/18 16:00 98.2 79 16 151/97 (115) 100 08/16/18 16:00 Mechanical Ventilator 08/16/18 16:00 73 08/16/18 15:18 Mechanical Ventilator 08/16/18 15:15 74 16 40 08/16/18 14:10 91 08/16/18 14:00 98.2 86 16 134/78 (96) 99 08/16/18 13:43 99.5 90 16 124/75 100 Mechanical Ventilator 40 08/16/18 13:42 90 16 124/75 100 Mechanical Ventilator 40 08/16/18 13:29 80 16 40 08/16/18 11:30 85 18 Mechanical Ventilator 40 08/16/18 11:30 99.5 85 18 151/104 100 Mechanical Ventilator 40 08/16/18 11:15 85 18 40 08/16/18 11:03 99.5 80 18 164/94 96 Mechanical Ventilator Status: sedated Condition: critical, grave Neck: trach Heart: HR/BP stable Abdomen: soft, active bowel sounds Extremities: no C/C/E, edema Micro: Microbiology Date/Time Source Procedure Growth Status 08/16/18 11:00 Nasal Nares Influenza Types A,B Antigen (GAYLA) - Final Complete Accucheck: 132 Critical Care - Subjective ROS Limited/Unobtainable: No Interval Events: awake, comfortable Condition: critical FI02: 40 Vent Support Breath Rate: 16 Vent Support Mode: AC Vent Tidal Volume: 500 Sputum Amount: Moderate PEEP: 5.0 PIP: 24 Tube Feeding Amount: 75 I&O: Intake and Output 08/16/18 08/17/18 19:00 07:00 Intake Total 285 ml 1322.7772 ml Output Total 1875 ml 350 ml Balance -1590 ml 972.7772 ml Intake Free Water 60 ml 180 ml IV Total 317.7772 ml Tube Feeding 225 ml 825 ml Output Urine Total 1875 ml 350 ml Labs: Laboratory Tests Test 08/16/18 11:00 08/16/18 13:25 08/16/18 15:00 08/17/18 03:45 White Blood Count 12.9 K/UL (4.8-10.8) H 12.5 K/UL (4.8-10.8) H Red Blood Count 4.51 M/UL (4.20-5.40) 3.97 M/UL (4.20-5.40) L Hemoglobin 13.8 G/DL (12.0-16.0) 12.4 G/DL (12.0-16.0) Hematocrit 42.5 % (37.0-47.0) 37.6 % (37.0-47.0) Mean Corpuscular Volume 94 FL (80-99) 95 FL (80-99) Mean Corpuscular Hemoglobin 30.7 PG (27.0-31.0) 31.2 PG (27.0-31.0) H Mean Corpuscular Hemoglobin Concent 32.5 G/DL (32.0-36.0) 32.9 G/DL (32.0-36.0) Red Cell Distribution Width 11.1 % (11.6-14.8) L 11.3 % (11.6-14.8) L Platelet Count 395 K/UL (150-450) 371 K/UL (150-450) Mean Platelet Volume 6.3 FL (6.5-10.1) L 6.1 FL (6.5-10.1) L Neutrophils (%) (Auto) 60.6 % (45.0-75.0) 68.6 % (45.0-75.0) Lymphocytes (%) (Auto) 32.0 % (20.0-45.0) 24.2 % (20.0-45.0) Monocytes (%) (Auto) 4.7 % (1.0-10.0) 4.7 % (1.0-10.0) Eosinophils (%) (Auto) 1.3 % (0.0-3.0) 1.6 % (0.0-3.0) Basophils (%) (Auto) 1.4 % (0.0-2.0) 0.9 % (0.0-2.0) Urine Color Pale yellow Urine Appearance Clear Urine pH 7 (4.5-8.0) Urine Specific [place] 1.015 (1.005-1.035) Urine Protein Negative (NEGATIVE) Urine Glucose (UA) Negative (NEGATIVE) Urine Ketones Negative (NEGATIVE) Urine Blood 2+ (NEGATIVE) H Urine Nitrite Negative (NEGATIVE) Urine Bilirubin Negative (NEGATIVE) Urine Urobilinogen Normal MG/DL (0.0-1.0) Urine Leukocyte Esterase Negative (NEGATIVE) Urine RBC 0-2 /HPF (0 - 2) Urine WBC 0-2 /HPF (0 - 2) Urine Squamous Epithelial Cells Occasional /LPF Urine Bacteria Occasional /HPF (NONE) Sodium Level 138 MMOL/L (136-145) 144 MMOL/L (136-145) Potassium Level 5.2 MMOL/L (3.5-5.1) H 4.3 MMOL/L (3.5-5.1) Chloride Level 101 MMOL/L (98-107) 104 MMOL/L (98-107) Carbon Dioxide Level 29 MMOL/L (21-32) 26 MMOL/L (21-32) Anion Gap 8 mmol/L (5-15) 14 mmol/L (5-15) Blood Urea Nitrogen 17 mg/dL (7-18) 17 mg/dL (7-18) Creatinine 0.5 MG/DL (0.55-1.30) L 0.5 MG/DL (0.55-1.30) L Estimat Glomerular Filtration Rate > 60 mL/min (>60) > 60 mL/min (>60) Glucose Level 92 MG/DL (74-106) 123 MG/DL (74-106) H Lactic Acid Level 2.60 mmol/L (0.4-2.0) H 3.00 mmol/L (0.66-2.22) H Calcium Level 9.9 MG/DL (8.5-10.1) 9.6 MG/DL (8.5-10.1) Phosphorus Level 4.0 MG/DL (2.5-4.9) 4.1 MG/DL (2.5-4.9) Magnesium Level 1.9 MG/DL (1.8-2.4) Total Bilirubin 0.3 MG/DL (0.2-1.0) Aspartate Amino Transf (AST/SGOT) 21 U/L (15-37) Alanine Aminotransferase (ALT/SGPT) 40 U/L (12-78) Alkaline Phosphatase 106 U/L (46-116) Total Creatine Kinase 86 U/L (26-308) Creatine Kinase MB 0.7 NG/ML (0.0-3.6) Creatine Kinase MB Relative Index 0.8 Troponin I 0.000 ng/mL (0.000-0.056) Pro-B-Type Natriuretic Peptide 43 pg/mL (0-125) Total Protein 8.4 G/DL (6.4-8.2) H Albumin 3.3 G/DL (3.4-5.0) L 3.0 G/DL (3.4-5.0) L Globulin 5.1 g/dL Albumin/Globulin Ratio 0.6 (1.0-2.7) L Arterial Blood pH 7.411 (7.350-7.450) Arterial Blood Partial Pressure CO2 44.4 mmHg (35.0-45.0) Arterial Blood Partial Pressure O2 105.5 mmHg (75.0-100.0) H Arterial Blood HCO3 27.6 mmol/L (22.0-26.0) H Arterial Blood Oxygen Saturation 97.6 % (95-100) Arterial Blood Base Excess 2.5 (-2-2) H Harry Test Positive Curtis Mcgovern MD Aug 17, 2018 09:44
--- NOTE | 2018-08-17 11:27 | NUR ---
RD ASSESSMENT & RECOMMENDATIONS SEE CARE ACTIVITY FOR COMPLETE ASSESSMENT DAILY ESTIMATED NEEDS: Needs based on Critical care, sepsis 61kg adj 22-30 kcals/kg 3702-6741 total kcals 1.2-2 g protein/kg 73-122 g total protein 25-30 mL/kg 2855-3966 total fluid mLs NUTRITION DIAGNOSIS: Swallowing difficulty r/t respiratory status as evidenced by pt is vent dep via trach w/ PEG. CURRENT TF:Vital AF 1.2 @75ml/hr x20 hrs ENTERAL NUTRITION RECOMMENDATIONS: VITAL AF 1.2 @65ml/hr x20 hrs to provide 1300ml, 1560 kcal, 98g pro, 1054ml free H2o - REC TO LOWER TF TO GOAL OF 65ML/HR FROM CURRENT 75ML/HR. - Flush per MD/ HOB over 30 degrees ADDITIONAL RECOMMENDATIONS: 1) MONITOR FOR SIGNS OF INTOLERANCE TO FORMULA PT PREVIOUSLY ON ELEMENTAL + SOY BASED FORMULA PER EMR: Milk allergy; possible intolerance vs true allergy 2) Monitor lytes, BG daily 3) RE-calibrate bed scale as able: Pt is 178# from SNF (per EMR:190#)
[2018-08-17 12:00] VITALS: BP 134/74
--- NOTE | 2018-08-17 13:00 | History and Physical Report ---
DATE OF ADMISSION: 08/16/2018 NOTE: POOR AUDIO REASON FOR ADMISSION: Admission to [facility] of this 57-year-old patient because of hypotension, tachycardia, and chest pain. HISTORY OF PRESENT ILLNESS: The patient is a resident of an extended care facility subacute unit. The patient has been in stable condition over the last several months. She is known to have several chronic medical syndrome that will be detailed in the following. She has been stable on her current medication. On the day of admission, she complained of chest pain, , shortness of breath, tachypnea and tachycardia and she was transferred by paramedics to [facility] ER. Assessment in the ER revealed the patient was hypotensive with pleural effusion and pulmonary infiltrate. Had elevated lactate and elevated WBC. started in the emergency room. in the emergency room where she received sodium replacement and was placed on Zosyn and vancomycin and transferred to the subacute unit. PAST MEDICAL HISTORY: Less than a year ago, the patient had cerebral hemorrhage, completely aphasic and right hemiplegia. She developed respiratory failure, had to be intubated, and placed on mechanical ventilation. She was unable to be weaned. She underwent tracheostomy and gastrostomy and [facility] The patient is now ventilator dependent for tracheostomy. She is fed via G-tube. MEDICATIONS: The patient has been on albuterol sulfate and ipratropium bromide inhalation therapy every 6 hours. She is on atorvastatin and calcium 20 mg daily. She was on t.i.d. placed on cephalexin. She was on the ergocalciferol 50,000 units once weekly and famotidine 20 mg daily. She has been on 10 mg every 6 hours. She is on famotidine 20 mg b.i.d. and ibuprofen 600 mg t.i.d. acidophilus , levetiracetam, eye drops, . ALLERGIES: No known drug allergies. MEDICATIONS: As above. FAMILY HISTORY: Noncontributory. SOCIAL HISTORY: She is . She was born in [place] and lived in [place] for many years. Prior to that, . She works in . The patient denied any smoking, drinking or use of illicit drugs. REVIEW OF SYSTEMS: The patient does not give any information regarding her state of health. PHYSICAL EXAMINATION: VITAL SIGNS: Blood pressure is 127/81, her pulse is 68, respirations 16, and temperature 98.4. HEENT: Eyes were normal. Pupils were round, equal, and reactive to light. Sclerae was white. Conjunctiva was pink. Extraocular movements were normal. Temporal arteries were palpable bilaterally. There was some bilateral temporal wasting. Visual max to confrontation were normal. Neglect sign was negative. ENT, mucous membranes were not dehydrated. Auditory canals were clear and tympanic membranes could not be visualized. Nasal cavity was not congested. Nasal septum was intact. Soft palate was free of ulcerations. Pharynx was clear. No tonsillar hypertrophy. Uvula jackie to phonation. Tongue was moist, midline, and normally papillated. NECK: Supple. There was no goiter. No mass. No lymphadenopathy. There was no JVD. No bruits. Carotid upstroke was 2+. LUNGS: Clear with decreased breath sounds in both bases, more on the left than on the right. HEART: PMI was at the fifth left intercostal space in midclavicular line. There was normal S1 and normal S2. There was no murmur. No arrhythmia. No S3. No S4. No pericardial rub. ABDOMEN: Soft. Nontender without organomegaly. There were no masses palpable. Normal bowel sounds without bruits. There was no guarding. No rebound tenderness. No ascites. No hernia. No CVA tenderness. Liver span was 8 cm, smooth and nontender. EXTREMITIES: No cyanosis, no clubbing, and no edema. Extremities were warm. NEUROLOGICAL: Reflexes of biceps, triceps, and brachioradialis were symmetric. It was difficult to obtain on the right, present on the left. Cranial nerves from II through XII were symmetric and equal. Cerebellar function, there was no tremor. No nystagmus. No extrapyramidal rigidity. Sensory exam to pinprick, cotton touch, position are grossly normal. Motor strength was 4/5 against resistance in the left lower extremity and could not be obtained on the right side. LABORATORY AND DIAGNOSTIC DATA: Hemoglobin is 13.8, hematocrit 32.5 with MCV of 84, WBC of 12.9, and platelets is 395,000. Her BUN and creatinine is 17 and 0.5 respectively. Her sodium is 138, potassium 5.2, chloride 101, CO2 is 29, and lactic acid was 2.6. Creatinine in the a.m. was 3.9, repeat 2.6 with at 15:00. The troponin was not identified and liver function tests were normal. Total protein is 8.4 with albumin of 3.3. HCG was done pulmonary emboli. Echocardiogram and chest CT, there was no evidence for pulmonary embolism volume loss and consolidation in the left lower lobe. There is a small left pleural effusion. PLAN: The patient currently is on Zosyn 3.375 mg IV piggyback q.6 and vancomycin 750 mg IV piggyback. Pulmonary workforce management consultant and Infectious Disease workforce management consultant were called to assist in the management of this case. Karissa Fox M.D. DR: WALDO JOB#: [id number] CC:
--- NOTE | 2018-08-17 14:00 | NUR ---
NURSE NOTES: pt sleeping, vital signs stable,no co pain, no SOB, bed bath given, tolerate GT feeding well, continue monitoring.
--- NOTE | 2018-08-17 14:30 | Consultation ---
History of Present Illness General Date patient seen: Aug 17, 2018 Chief Complaint: Chest Pain Present Illness HPI 57 y/o with hx of cardiac arrest, cerebral hemorrhage c/w aphasia and R hemiplegia, chronic trach and peg, HLD, HTN, bed bound, SNF resident presents to ED on 08/16 with chest pain and increasing SOB, tracheal secretions, nasal congestion and cough. CTA showed LLL infiltrate. Upon admission noted to be hypotensive, elevated lactate and leukocytosis. Allergies: Coded Allergies: MILK (Verified Allergy, Unknown, 08/16/18) Medication History Scheduled Amino Acids/Protein Hydrolys (Pro-Stat Liquid), 30 ML GT DAILY, (Reported) Amlodipine Besylate (Norvasc), 5 MG GT DAILY, (Reported) Atorvastatin Calcium* (Atorvastatin Calcium*), 10 MG GT BEDTIME, (Reported) Cephalexin* (Keflex*), 500 MG ORAL TID Cran/Vitc/Mannose/Inulin/Brom (Uti-Stat Liquid), 3,875 MG GT TWICE A DAY, ( Reported) Docusate Sodium* (Colace*), 100 MG GT DAILY, (Reported) Ergocalciferol (Vitamin D2)* (Vitamin D*), 50,000 UNIT GT ONCE A WEEK, (Reported ) Famotidine (Famotidine), 20 MG GT TWICE A DAY, (Reported) Hydralazine Hcl* (Hydralazine Hcl*), 10 MG GT EVERY 6 HOURS, (Reported) Lactobacillus Acidophilus/Pect (Acidophilus-Pectin Tab Chew), 1 EACH GT DAILY, ( Reported) Lactulose (Lactulose*), 30 ML ORAL BID Lactulose (Lactulose*), 30 ML GT TWICE A DAY, (Reported) Levetiracetam (Keppra), 5 ML GT Q12HR, (Reported) Multivitamin With Minerals (Multivitamins With Minerals*), 1 TAB GT DAILY, ( Reported) Na Phos,M-B/Na Phos,Di-Ba* (Fleet Enema*), 133 ML RECTAL PRN, (Reported) Polymyxin/Trimethoprim (Polytrim Eye Drops), 2 DROP OPHTHALM THREE TIMES A DAY Promethazine Hcl (Promethazine Hcl*), 5 ML GT Q6H, (Reported) Scheduled PRN Albuterol Sulfate* (Albuterol Sulfate Hhn*), 3 ML INH Q4H PRN for Shortness of Breath, (Reported) Ibuprofen* (Motrin*), 400 MG GT Q6H PRN for For Pain, (Reported) Miscellaneous Medications Chlorhexidine Gluconate* (Hibiclens*), 15 ML ORAL, (Reported) Dextran 70/Hypromellose (Artificial Tears Eye Drops*), 2 DROP BOTH EYES, ( Reported) Patient History Healthcare decision maker Resuscitation status Full Code Advanced Directive on File Patient History Narrative Pmhx: as above Shx: She is . She was born in [place] and lived in [place] for many years. The patient denied any smoking, drinking or use of illicit drugs. Fhx non contributory Review of Systems All Other Systems: negative except mentioned in HPI Physical Exam Physical Exam Narrative HEENT: Pupils were round, equal, and reactive to light. Sclerae was white. . ENT, mucous membranes were not dehydrated. NECK: Supple. There was no goiter. No mass. No lymphadenopathy. There was no JVD. No bruits. LUNGS: Clear with decreased breath sounds in both bases, more on the left than on the right. HEART: There was normal S1 and normal S2. There was no murmur. No arrhythmia. No S3. No S4. No pericardial rub. ABDOMEN: Soft. Nontender without organomegaly. There were no masses palpable. Normal bowel sounds without bruits. There was no guarding. No rebound tenderness. No ascites. EXTREMITIES: No cyanosis, no clubbing, and no edema. Extremities were warm. Last 24 Hour Vital Signs Date Time Temp Pulse Resp B/P (MAP) Pulse Ox O2 Delivery O2 Flow Rate FiO2 08/17/18 13:18 66 16 40 08/17/18 12:24 134/74 08/17/18 12:00 99.5 65 16 134/74 (94) 92 08/17/18 12:00 40 08/17/18 12:00 Mechanical Ventilator 08/17/18 10:41 76 16 40 08/17/18 08:50 78 16 40 08/17/18 08:45 75 120/85 08/17/18 08:00 40 08/17/18 08:00 75 08/17/18 08:00 Mechanical Ventilator 08/17/18 08:00 99.3 75 16 120/85 (97) 100 08/17/18 06:40 77 16 40 08/17/18 06:06 125/79 08/17/18 05:08 79 16 40 08/17/18 04:00 40 08/17/18 04:00 Mechanical Ventilator 08/17/18 04:00 99.1 78 16 125/79 (94) 99 08/17/18 03:22 71 08/17/18 03:17 75 16 40 08/17/18 02:09 72 18 Mechanical Ventilator 40 08/17/18 02:00 Mechanical Ventilator 08/17/18 01:01 76 16 40 08/17/18 00:00 Mechanical Ventilator 08/17/18 00:00 99.0 70 16 120/77 (91) 97 08/16/18 23:45 127/81 08/16/18 23:33 71 08/16/18 22:45 68 16 40 08/16/18 21:28 76 16 40 08/16/18 20:00 Mechanical Ventilator 08/16/18 20:00 40 08/16/18 20:00 99.4 73 17 128/77 (94) 100 08/16/18 19:27 76 08/16/18 19:00 70 16 40 08/16/18 17:50 151/97 08/16/18 17:10 69 16 40 08/16/18 16:00 40 08/16/18 16:00 98.2 79 16 151/97 (115) 100 08/16/18 16:00 Mechanical Ventilator 08/16/18 16:00 73 08/16/18 15:18 Mechanical Ventilator 08/16/18 15:15 74 16 40 08/16/18 14:10 91 08/16/18 14:00 98.2 86 16 134/78 (96) 99 Intake and Output 08/16/18 08/17/18 19:00 07:00 Intake Total 285 ml 1322.7772 ml Output Total 1875 ml 350 ml Balance -1590 ml 972.7772 ml Intake Free Water 60 ml 180 ml IV Total 317.7772 ml Tube Feeding 225 ml 825 ml Output Urine Total 1875 ml 350 ml Laboratory Tests Test 08/16/18 15:00 08/17/18 03:45 Lactic Acid Level 3.00 mmol/L (0.66-2.22) H White Blood Count 12.5 K/UL (4.8-10.8) H Red Blood Count 3.97 M/UL (4.20-5.40) L Hemoglobin 12.4 G/DL (12.0-16.0) Hematocrit 37.6 % (37.0-47.0) Mean Corpuscular Volume 95 FL (80-99) Mean Corpuscular Hemoglobin 31.2 PG (27.0-31.0) H Mean Corpuscular Hemoglobin Concent 32.9 G/DL (32.0-36.0) Red Cell Distribution Width 11.3 % (11.6-14.8) L Platelet Count 371 K/UL (150-450) Mean Platelet Volume 6.1 FL (6.5-10.1) L Neutrophils (%) (Auto) 68.6 % (45.0-75.0) Lymphocytes (%) (Auto) 24.2 % (20.0-45.0) Monocytes (%) (Auto) 4.7 % (1.0-10.0) Eosinophils (%) (Auto) 1.6 % (0.0-3.0) Basophils (%) (Auto) 0.9 % (0.0-2.0) Sodium Level 144 MMOL/L (136-145) Potassium Level 4.3 MMOL/L (3.5-5.1) Chloride Level 104 MMOL/L (98-107) Carbon Dioxide Level 26 MMOL/L (21-32) Anion Gap 14 mmol/L (5-15) Blood Urea Nitrogen 17 mg/dL (7-18) Creatinine 0.5 MG/DL (0.55-1.30) L Estimat Glomerular Filtration Rate > 60 mL/min (>60) Glucose Level 123 MG/DL (74-106) H Calcium Level 9.6 MG/DL (8.5-10.1) Phosphorus Level 4.1 MG/DL (2.5-4.9) Albumin 3.0 G/DL (3.4-5.0) L Height (Feet): 5 Height (Inches): 4.00 Weight (Pounds): 190 Medications Current Medications Medications (Trade) Dose Ordered Sig/Marzena Route PRN Reason Start Time Stop Time Status Last Admin Dose Admin Acetaminophen (Tylenol) 650 mg Q4H PRN GT FEVER 08/16/18 14:00 09/15/18 13:59 08/17/18 06:49 Albuterol/ Ipratropium (Albuterol/ Ipratropium) 3 ml Q4H PRN HHN Shortness of Breath 08/16/18 14:00 08/21/18 13:59 Amlodipine Besylate (Norvasc) 5 mg DAILY GT 08/17/18 09:00 09/16/18 08:59 08/17/18 08:45 Dextrose (Dextrose 50%) 25 ml Q30M PRN IV Hypoglycemia 08/16/18 16:00 09/15/18 15:59 Dextrose (Dextrose 50%) 50 ml Q30M PRN IV Hypoglycemia 08/16/18 16:00 09/15/18 15:59 Heparin Sodium (Porcine) (Heparin 5000 units/ml) 5,000 units EVERY 12 HOURS SUBQ 08/16/18 21:00 09/15/18 20:59 08/17/18 08:45 Hydralazine HCl (Apresoline) 10 mg EVERY 6 HOURS GT 08/16/18 18:00 09/15/18 17:59 08/17/18 12:24 Insulin Aspart (NovoLOG) Q6HR SUBQ 08/16/18 18:00 09/15/18 17:59 08/17/18 12:25 Iopamidol (Isovue-370 150ml) 150 ml NOW PRN INJ Radiology Procedure 08/16/18 11:30 08/18/18 11:22 Lactulose (Cephulac) 20 gm TWICE A DAY GT 08/16/18 18:00 09/15/18 17:59 08/17/18 08:44 Lorazepam (Ativan 2mg/ml 1ml) 2 mg Q2H PRN IV For Anxiety 08/16/18 14:00 08/23/18 13:59 Morphine Sulfate (Morphine Sulfate) 4 mg Q4H PRN IVP Severe Pain (Pain Scale 7-10) 08/16/18 14:00 08/23/18 13:59 08/16/18 17:09 Ondansetron HCl (Zofran) 4 mg Q6H PRN IVP Nausea & Vomiting 08/16/18 14:00 09/15/18 13:59 Pantoprazole (Protonix) 40 mg DAILY IV 08/17/18 09:00 09/16/18 08:59 08/17/18 08:44 Polyethylene Glycol (Miralax) 17 gm DAILYPRN PRN GT Constipation 08/16/18 14:00 09/15/18 13:59 08/16/18 21:09 Vancomycin HCl (Vanco rx to dose) 1 ea DAILY PRN MISC PER PHARM 08/16/18 14:15 09/15/18 14:14 Vancomycin HCl 750 mg/Sodium Chloride 275 ml @ 183.333 mls/hr Q12H IVPB 08/17/18 01:00 08/22/18 00:59 08/17/18 12:24 Assessment/Plan Assessment/Plan Abx: Zosyn x1 08/16 IV Vancomycin 08/16- Assessment: PNA -CTA chest: No evidence of pulmonary embolism. Bronchiectasis with mild volume loss and consolidation in the left lower lobe, which may suggest atelectasis versus pneumonia. Small layering left pleural effusion. -sp cx p -influenza sc neg -CXR: Opacity in the left lung base which may represent pleural effusion and atelectasis. Pneumonia is not excluded. Afebrile Leukocytosis -u/a neg Lactic acidosis hx of cardiac arrest hx of cerebral hemorrhage c/w aphasia and R hemiplegia chronic trach and peg HLD HTN bed bound SNF resident Plan: -Continue empiric IV Vancomycin #2 and resume Zosyn for PNA pending cultures -f.u cx -Monitor CBC/CMP, temperatures -aspiration precautions -PEG/Trach care -lactic acid am Thank you for this consultation. Will continue to follow along with you. Yeny Webb M.D. Aug 17, 2018 14:30
[2018-08-17] MEDS: Piperacillin/Tazobactam 3.375 GM in D5W 110 ML IVPB SCH ×2 (15:37→21:56)
[2018-08-17 16:00] VITALS: BP 146/73
--- NOTE | 2018-08-17 19:16 | NUR ---
HAND-OFF: Report given to DESTINY GHOSH, NO ANY DISTRESS AT THIS TIME.
--- NOTE | 2018-08-17 19:17 | NUR ---
NURSE NOTES: Received bedside report from AUGIE Ta.Patient stable,open eyes,no-verbal,SR on quality assurance monitor final,Portex 7 AC 16 TV 500 FiO2 20% PEEP 5 tolerated well,GT running with Vital AF 1.2@75 ml/hr, IV asymptomatic,intact on L hand G22 and R hand G18 ,BS active in all quadrants,bed secured,call light within a reach,will continue to monitor and follow POC
[2018-08-17 20:00] VITALS: BP 136/78
[2018-08-17] MEDS ORDERED: Vancomycin 1 GM in D5W 275 ML IV SCH (23:00)
[2018-08-18] VITALS: BP 126/69
[2018-08-18] MEDS: Vancomycin 750mg/NS 275ml IVPB SCH ×2 (00:24)
[2018-08-18] MEDS: NovoLOG Insulin Flexpen SUBQ SCH ×5 (00:26→23:48)
[2018-08-18 04:00] VITALS: BP 145/80
--- NOTE | 2018-08-18 05:00 | Progress Note ---
DATE: 08/17/2018 SUBJECTIVE: The patient is afebrile and hemodynamically stable. PHYSICAL EXAMINATION: VITAL SIGNS: Blood pressure 136/78, pulse is 69, respirations 16, temperature 98.8. HEENT: Eyes were normal. ENT, mucous membranes were moist and intact. NECK: Supple with no JVD and without lymph nodes. Tracheostomy site is clean. LUNGS: Clear without rhonchi, rales, or wheezing. Secretions are small, thin, and martinez. HEART: Normal sounds with regular heartbeat. There is no S3, S4, or pericardial rub. ABDOMEN: Soft and nontender with normal bowel sounds. Gastrostomy site is clean. EXTREMITIES: Warm without cyanosis, clubbing, or edema. LABORATORY AND DIAGNOSTIC DATA: Hemoglobin is 12.4, hematocrit 37.6 with MCV of 35, WBC of 12.5, and platelets is 371,000. BUN and creatinine is 17 and 0.5 respectively. Sodium is 144, potassium 4.3, chloride 104, and CO2 is 26. Albumin was 3. CT scan of the chest with intravenous contrast was performed and showed no evidence of pulmonary embolism. Left lung bronchiectasis, volume loss and consolidation. small pleural effusion that cleared out with . Hemoglobin is 12.4, hematocrit 37.6 with MCV of 95, WBC of 12.5 and platelets 401. BUN and creatinine is 17 and 0.5 respectively. Sodium is 144, potassium 4.3, chloride 104, CO2 is 26. Repeat laboratory tests will be done in the a.m. Karissa Fox M.D. DR: JENNIFER JOB#: [id number] CC:
[2018-08-18] MEDS: HydrALAZINE 10mg Tab GT SCH ×5 (05:45→23:47)
[2018-08-18] MEDS: Piperacillin/Tazobactam 3.375 GM in D5W 110 ML IVPB SCH ×3 (05:45→21:17)
[2018-08-18 05:50] LABS: BASOPHILS % (AUTO) 0.9 % (0.0-2.0); HEMATOCRIT 37.4 % (37.0-47.0); HEMOGLOBIN 12.2 G/DL (12.0-16.0); LYMPHOCYTES % (AUTO) 24.6 % (20.0-45.0); MEAN CORPUSCULAR VOLUME 96 FL (80-99); MONOCYTES % (AUTO) 4.9 % (1.0-10.0); NEUTROPHILS % (AUTO) 67.6 % (45.0-75.0); PLATELET COUNT 400 K/UL (150-450); RED BLOOD COUNT 3.91 M/UL (4.20-5.40); RED CELL DISTRIBUTION WIDTH 11.5 % (11.6-14.8); WHITE BLOOD COUNT 11.8 K/UL (4.8-10.8)
[2018-08-18 06:13] LABS: ALANINE AMINOTRANSFERASE 34 U/L (12-78); ALBUMIN/GLOBULIN RATIO 0.7 (1.0-2.7); ALKALINE PHOSPHATASE 94 U/L (46-116); ANION GAP 13 mmol/L (5-15); ASPARTATE AMINO TRANSFERASE 15 U/L (15-37); BILIRUBIN,TOTAL 0.3 MG/DL (0.2-1.0); BLOOD UREA NITROGEN 20 mg/dL (7-18); CALCIUM 9.8 MG/DL (8.5-10.1); CARBON DIOXIDE 26 MMOL/L (21-32); CHLORIDE 104 MMOL/L (98-107); CREATININE 0.5 MG/DL (0.55-1.30); POTASSIUM 3.9 MMOL/L (3.5-5.1); SODIUM 143 MMOL/L (136-145)
--- NOTE | 2018-08-18 06:42 | NUR ---
RESPIRATORY NOTE: Received pt on trach cuffed portex 7.0, secured by trach tie and trach guard, with current vent setting. Pt is awake, eyes open, vent dependent, tolerating the setting well. Roman rhonchi breath sound heard upon auscultation, sxn moderate amount of thick white/fernando secretions without incidents. Alarms are set and audible, vent is plugged into the red outlet, ambu bag is at bedside. Will continue to monitor pt and sxn as needed. Addendum: 08/18/18 at 1331 by Carlos Nguyen Elaine RT No SOB or resp distress noted at this time.
--- NOTE | 2018-08-18 07:15 | NUR ---
HAND-OFF: Report given to AUGIE Ta.Patient stable.
[2018-08-18 08:00] VITALS: BP 130/79
[2018-08-18] MEDS ORDERED: Vancomycin 1gm in D5W 275ml IVPB SCH (08:00)
--- NOTE | 2018-08-18 08:00 | NUR ---
NURSE NOTES: received pt in the bed, awake, vent dependent, vital signs stable, no co pain, no SOB, skin warm and dry to touch, tolerate GT feeing well, aston urine, bed in low position, HOB elevated.
[2018-08-18] MEDS: Heparin 5000 units/ml inj SUBQ SCH ×2 (08:33→21:17)
[2018-08-18] MEDS: Lactulose 20gm/30ml UDC GT SCH ×2 (08:33→18:00)
[2018-08-18] MEDS: Pantoprazole Inj IV SCH (08:34)
--- NOTE | 2018-08-18 09:26 | Pulmonolgy Critical Care Note ---
Critical Care - Asmt/Plan Problems: (1) Acute on chronic respiratory failure (2) Nosocomial pneumonia (3) Cardiac arrest (4) Feeding by G-tube (5) Sepsis Respiratory: monitor respiratory rate, adjust FIO2, CXR Cardiac: continue pressors, d/c mid level developer Renal: F/U I&O, keep IV fluid Infectious Disease: check cultures Gastrointestinal: continue feedings/current rate Endocrine: monitor blood sugar, check HgA1C Neurologic: PRN Ativan, PRN Morphine Affect: PRN ativan Prophylaxis: Heparin Time Spent (Minutes): 40 Notes Reviewed: account executive software sales, ID Discussed with: nurses, consultants, disease case managerprocess improvement manager - Objective Last 24 Hour Vital Signs Date Time Temp Pulse Resp B/P (MAP) Pulse Ox O2 Delivery O2 Flow Rate FiO2 08/18/18 09:10 75 17 40 08/18/18 08:34 76 130/79 08/18/18 08:00 98.8 76 18 130/79 (96) 100 08/18/18 08:00 40 08/18/18 08:00 Mechanical Ventilator 08/18/18 06:42 66 16 40 08/18/18 05:45 145/80 08/18/18 04:58 65 16 40 08/18/18 04:00 40 08/18/18 04:00 Mechanical Ventilator 08/18/18 04:00 98.6 63 16 145/80 (101) 99 08/18/18 03:29 72 08/18/18 02:34 62 16 40 08/18/18 00:48 63 16 40 08/18/18 00:00 Mechanical Ventilator 08/18/18 00:00 126/69 08/18/18 00:00 98.9 56 16 126/69 (88) 99 08/17/18 23:28 60 08/17/18 23:02 59 16 40 08/17/18 20:47 56 16 40 08/17/18 20:25 59 16 40 08/17/18 20:00 Mechanical Ventilator 08/17/18 20:00 98.8 69 16 136/78 (97) 99 08/17/18 20:00 40 08/17/18 19:30 64 08/17/18 18:22 146/73 08/17/18 17:28 67 16 40 08/17/18 16:00 66 08/17/18 16:00 40 08/17/18 16:00 Mechanical Ventilator 08/17/18 16:00 98.2 70 16 146/73 (97) 97 08/17/18 15:23 62 16 40 08/17/18 13:18 66 16 40 08/17/18 12:24 134/74 08/17/18 12:00 68 08/17/18 12:00 99.5 65 16 134/74 (94) 92 08/17/18 12:00 40 08/17/18 12:00 Mechanical Ventilator 08/17/18 10:41 76 16 40 Status: awake Condition: critical Neck: full ROM Lungs: chest wall tender Heart: regular Abdomen: non-tender, feeding tube Extremities: edema Micro: Microbiology Date/Time Source Procedure Growth Status 08/16/18 11:10 Blood Blood Culture - Preliminary NO GROWTH AFTER 24 HOURS Resulted 08/16/18 11:00 Blood Blood Culture - Preliminary NO GROWTH AFTER 24 HOURS Resulted 08/16/18 18:30 Sputum Gram Stain - Final Resulted 08/16/18 18:30 Sputum Culture - Preliminary Gram Negative Bacillus 1 Resulted 08/16/18 13:00 Nasal Nares MRSA Culture - Final NO METHICILLIN RESISTANT STAPH AUREUS... Complete 08/16/18 11:00 Nasal Nares Influenza Types A,B Antigen (GAYLA) - Final Complete Accucheck: 134 Critical Care - Subjective Condition: critical EKG Rhythm: V-Paced FI02: 40 Vent Support Breath Rate: 16 Vent Support Mode: AC Vent Tidal Volume: 500 Sputum Amount: Small PEEP: 5.0 PIP: 28 Tube Feeding Amount: 75 I&O: Intake and Output 08/17/18 08/18/18 18:59 06:59 Intake Total 1457.500 ml 760.0 ml Output Total 300 ml Balance 1157.500 ml 760.0 ml Intake Free Water 200 ml 50 ml IV Total 357.500 ml 110.0 ml Tube Feeding 900 ml 600 ml Output Urine Total 300 ml Curtis Mcgovern MD Aug 18, 2018 09:26
--- NOTE | 2018-08-18 11:34 | Infectious Diseases Prog Note ---
Assessment/Plan Assessment/Plan Abx: Zosyn x1 08/16 IV Vancomycin 08/16- Assessment: PNA -CTA chest: No evidence of pulmonary embolism. Bronchiectasis with mild volume loss and consolidation in the left lower lobe, which may suggest atelectasis versus pneumonia. Small layering left pleural effusion. -sp cx GNR -influenza sc neg -CXR: Opacity in the left lung base which may represent pleural effusion and atelectasis. Pneumonia is not excluded. 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 Will continue to follow along with you. Subjective Allergies: Coded Allergies: MILK (Verified Allergy, Unknown, 08/16/18) Subjective afebrile at 40% Bcx NTD leukocytosis improving Objective Vital Signs Last 24 Hour Vital Signs Date Time Temp Pulse Resp B/P (MAP) Pulse Ox O2 Delivery O2 Flow Rate FiO2 08/18/18 10:30 72 16 40 08/18/18 09:10 75 17 40 08/18/18 08:34 76 130/79 08/18/18 08:00 98.8 76 18 130/79 (96) 100 08/18/18 08:00 70 08/18/18 08:00 40 08/18/18 08:00 Mechanical Ventilator 08/18/18 06:42 66 16 40 08/18/18 05:45 145/80 08/18/18 04:58 65 16 40 08/18/18 04:00 40 08/18/18 04:00 Mechanical Ventilator 08/18/18 04:00 98.6 63 16 145/80 (101) 99 08/18/18 03:29 72 08/18/18 02:34 62 16 40 08/18/18 00:48 63 16 40 08/18/18 00:00 Mechanical Ventilator 08/18/18 00:00 126/69 08/18/18 00:00 98.9 56 16 126/69 (88) 99 08/17/18 23:28 60 18 23:02 59 16 40 18 20:47 56 16 40 08/17/18 20:25 59 16 40 08/17/18 20:00 Mechanical Ventilator 08/17/18 20:00 98.8 69 16 136/78 (97) 99 08/17/18 20:00 40 08/17/18 19:30 64 08/17/18 18:22 146/73 08/17/18 17:28 67 16 40 08/17/18 16:00 66 08/17/18 16:00 40 08/17/18 16:00 Mechanical Ventilator 08/17/18 16:00 98.2 70 16 146/73 (97) 97 08/17/18 15:23 62 16 40 08/17/18 13:18 66 16 40 08/17/18 12:24 134/74 08/17/18 12:00 68 08/17/18 12:00 99.5 65 16 134/74 (94) 92 08/17/18 12:00 40 08/17/18 12:00 Mechanical Ventilator Height (Feet): 5 Height (Inches): 4.00 Weight (Pounds): 190 Objective HEENT: Pupils were round, equal, and reactive to light. Sclerae was white. . ENT, mucous membranes were not dehydrated. NECK: Supple. There was no goiter. No mass. No lymphadenopathy. There was no JVD. No bruits. LUNGS: Clear with decreased breath sounds in both bases, more on the left than on the right. HEART: There was normal S1 and normal S2. There was no murmur. No arrhythmia. No S3. No S4. No pericardial rub. ABDOMEN: Soft. Nontender without organomegaly. There were no masses palpable. Normal bowel sounds without bruits. There was no guarding. No rebound tenderness. No ascites. EXTREMITIES: No cyanosis, no clubbing, and no edema. Extremities were warm. Microbiology Date/Time Source Procedure Growth Status 08/16/18 11:10 Blood Blood Culture - Preliminary NO GROWTH AFTER 24 HOURS Resulted 08/16/18 11:00 Blood Blood Culture - Preliminary NO GROWTH AFTER 24 HOURS Resulted 08/16/18 18:30 Sputum Gram Stain - Final Resulted 08/16/18 18:30 Sputum Culture - Preliminary Gram Negative Bacillus 1 Resulted 08/16/18 13:00 Nasal Nares MRSA Culture - Final NO METHICILLIN RESISTANT STAPH AUREUS... Complete 08/16/18 11:00 Nasal Nares Influenza Types A,B Antigen (GAYLA) - Final Complete 08/16/18 13:00 Rectum VRE Culture - Final Enterococcus Faecalis - Vre Complete Laboratory Tests Test 08/18/18 00:10 08/18/18 03:35 08/18/18 09:30 Vancomycin Level Trough 6.8 ug/mL (5.0-12.0) White Blood Count 11.8 K/UL (4.8-10.8) H Red Blood Count 3.91 M/UL (4.20-5.40) L Hemoglobin 12.2 G/DL (12.0-16.0) Hematocrit 37.4 % (37.0-47.0) Mean Corpuscular Volume 96 FL (80-99) Mean Corpuscular Hemoglobin 31.1 PG (27.0-31.0) H Mean Corpuscular Hemoglobin Concent 32.5 G/DL (32.0-36.0) Red Cell Distribution Width 11.5 % (11.6-14.8) L Platelet Count 400 K/UL (150-450) Mean Platelet Volume 5.8 FL (6.5-10.1) L Neutrophils (%) (Auto) 67.6 % (45.0-75.0) Lymphocytes (%) (Auto) 24.6 % (20.0-45.0) Monocytes (%) (Auto) 4.9 % (1.0-10.0) Eosinophils (%) (Auto) 2.0 % (0.0-3.0) Basophils (%) (Auto) 0.9 % (0.0-2.0) Sodium Level 143 MMOL/L (136-145) Potassium Level 3.9 MMOL/L (3.5-5.1) Chloride Level 104 MMOL/L (98-107) Carbon Dioxide Level 26 MMOL/L (21-32) Anion Gap 13 mmol/L (5-15) Blood Urea Nitrogen 20 mg/dL (7-18) H Creatinine 0.5 MG/DL (0.55-1.30) L Estimat Glomerular Filtration Rate > 60 mL/min (>60) Glucose Level 111 MG/DL (74-106) H Lactic Acid Level 2.30 mmol/L (0.4-2.0) H 1.30 mmol/L (0.66-2.22) Calcium Level 9.8 MG/DL (8.5-10.1) Total Bilirubin 0.3 MG/DL (0.2-1.0) Aspartate Amino Transf (AST/SGOT) 15 U/L (15-37) Alanine Aminotransferase (ALT/SGPT) 34 U/L (12-78) Alkaline Phosphatase 94 U/L (46-116) Total Protein 7.6 G/DL (6.4-8.2) Albumin 3.0 G/DL (3.4-5.0) L Globulin 4.6 g/dL Albumin/Globulin Ratio 0.7 (1.0-2.7) L Current Medications Medications (Trade) Dose Ordered Sig/Marzena Route PRN Reason Start Time Stop Time Status Last Admin Dose Admin Acetaminophen (Tylenol) 650 mg Q4H PRN GT FEVER 08/16/18 14:00 09/15/18 13:59 08/17/18 06:49 Albuterol/ Ipratropium (Albuterol/ Ipratropium) 3 ml Q4H PRN HHN Shortness of Breath 08/16/18 14:00 08/21/18 13:59 Amlodipine Besylate (Norvasc) 5 mg DAILY GT 08/17/18 09:00 09/16/18 08:59 08/18/18 08:34 Dextrose (Dextrose 50%) 25 ml Q30M PRN IV Hypoglycemia 08/16/18 16:00 09/15/18 15:59 Dextrose (Dextrose 50%) 50 ml Q30M PRN IV Hypoglycemia 08/16/18 16:00 09/15/18 15:59 Heparin Sodium (Porcine) (Heparin 5000 units/ml) 5,000 units EVERY 12 HOURS SUBQ 08/16/18 21:00 09/15/18 20:59 08/18/18 08:33 Hydralazine HCl (Apresoline) 10 mg EVERY 6 HOURS GT 08/16/18 18:00 09/15/18 17:59 08/18/18 05:45 Insulin Aspart (NovoLOG) Q6HR SUBQ 08/16/18 18:00 09/15/18 17:59 08/18/18 05:47 Iopamidol (Isovue-370 150ml) 150 ml NOW PRN INJ Radiology Procedure 08/16/18 11:30 08/18/18 11:22 Lactulose (Cephulac) 20 gm TWICE A DAY GT 08/16/18 18:00 09/15/18 17:59 08/18/18 08:33 Lorazepam (Ativan 2mg/ml 1ml) 2 mg Q2H PRN IV For Anxiety 08/16/18 14:00 08/23/18 13:59 Morphine Sulfate (Morphine Sulfate) 4 mg Q4H PRN IVP Severe Pain (Pain Scale 7-10) 08/16/18 14:00 08/23/18 13:59 08/16/18 17:09 Ondansetron HCl (Zofran) 4 mg Q6H PRN IVP Nausea & Vomiting 08/16/18 14:00 09/15/18 13:59 Pantoprazole (Protonix) 40 mg DAILY IV 08/17/18 09:00 09/16/18 08:59 08/18/18 08:34 Piperacillin Sod/ Tazobactam Sod 3.375 gm/Dextrose 110 ml @ 27.5 mls/hr EVERY 8 HOURS IVPB 08/17/18 15:30 08/22/18 15:29 08/18/18 05:45 Polyethylene Glycol (Miralax) 17 gm DAILYPRN PRN GT Constipation 08/16/18 14:00 09/15/18 13:59 08/16/18 21:09 Vancomycin HCl (Vanco rx to dose) 1 ea DAILY PRN MISC PER PHARM 08/16/18 14:15 09/15/18 14:14 Vancomycin HCl 1 gm/Dextrose 275 ml @ 183.708 mls/hr Q8H IVPB 08/18/18 08:00 08/23/18 07:59 08/18/18 08:44 Yeny Webb M.D. Aug 18, 2018 11:34
[2018-08-18 12:00] VITALS: BP 141/82
--- NOTE | 2018-08-18 13:33 | NUR ---
BOWLING ALLEY OPERATORMONOGRAM MACHINE OPERATOR SI: CHEST PAIN . VENTILATOR DEPENDENT VS: BP 141/82, P 63, T 99.0, RR 16, SpO2 100 on Vent FiO2 40 WBC 11.8, RBC 3.91, CR 0.5, BUN 20, Lactic Acid 2.30 IS: VANCOMYCIN 275ml IVPB PIPERACILLIN 110ml IVPB NORVASC 5mg GT PROTONIX 40mg IV HEPARIN SUBQ APRESOLINE 10mg GT LACTULOSE 20gm NOVOLOG SUBQ ADMITTED TO SDU
--- NOTE | 2018-08-18 15:07 | NUR ---
NURSE NOTES: pt has VRE rectum, dr. TUTTLE notified.
[2018-08-18 16:00] VITALS: BP 122/75
--- NOTE | 2018-08-18 16:11 | NUR ---
*-* INSURANCE *-* CLINICALS AND REVIEWS HAVE BEEN FAXED TO: [facility] [employer] @ [phone] [facility] WILL TRACK THIS ADMISSION NO ABSTRACT MAKER ASSIGNED AT THIS TIME. PLEASE FAX THE REVIEW/CLINICAL P- [phone] F [phone] Addendum: 08/19/18 at 0936 by CHASTITY DESHPANDE CM tomer# [id number]
[2018-08-18] MEDS ORDERED: Tubing IV Secondary IV ONE (19:11)
[2018-08-18] MEDS ORDERED: NS 275ml ONE (19:11)
--- NOTE | 2018-08-18 19:22 | NUR ---
HAND-OFF: Report given to HILARIO GHOSH, CONDITION STABLE.
--- NOTE | 2018-08-18 19:25 | NUR ---
NURSE NOTES: Received patient from AUGIE MARTÍNEZ. Awake, able to communicate. Family at bedside. Trach to vent dependent with Portex 7, Mode on AC 16 TV 500 FIO2 40% PEEP 5 and sating 100% in no respiratory distress noted. Denies any pain at this time. SR on monitor. vs stable. afebrile. Purewick in place with yellow urine. skin intact.skin kept clean and dry.contact isolation maintained. bed locked in low position. safety measures continued. will resume plan of care.
[2018-08-18 20:00] VITALS: BP 142/88
--- NOTE | 2018-08-18 20:16 | NUR ---
RESPIRATORY NOTE: Received pt. on 840 vent. Vent settings are: A/C rate of 16, Vt 500, FI02 40%, PEEP +5. No respiratory distress noted, Pt. Sp02 @ 99%. Ambu bag @ BS. Vent plugged on red outlet. Will continue to monitor pt.
[2018-08-18] MEDS: Acetaminophen 650mg/20.3ml GT PRN (21:18)
[2018-08-19] VITALS: BP 123/72
--- NOTE | 2018-08-19 00:52 | NUR ---
NURSE NOTES: Patient is asleep in bed with no respiratory distress.O2 saturation 98-100%. SR on monitor. vs stable. afebrile. Tolerating well with GTF . no residual. HOB kept elevated.no sign of pain. Turned and repositioned with pillow support.suctioned with white thick secretions.oral care done.keep patient comfortable.
[2018-08-19 04:00] VITALS: BP 127/75
[2018-08-19 05:09] LABS: ANION GAP 10 mmol/L (5-15); BLOOD UREA NITROGEN 16 mg/dL (7-18); CALCIUM 9.3 MG/DL (8.5-10.1); CARBON DIOXIDE 28 MMOL/L (21-32); CHLORIDE 103 MMOL/L (98-107); CREATININE 0.5 MG/DL (0.55-1.30); POTASSIUM 4.3 MMOL/L (3.5-5.1); SODIUM 141 MMOL/L (136-145)
[2018-08-19] MEDS: NovoLOG Insulin Flexpen SUBQ SCH ×3 (05:48→18:00)
[2018-08-19 05:51] LABS: HEMATOCRIT 34.9 % (37.0-47.0); HEMOGLOBIN 11.6 G/DL (12.0-16.0); LYMPHOCYTES % (AUTO) 20.6 % (20.0-45.0); MEAN CORPUSCULAR VOLUME 95 FL (80-99); MONOCYTES % (AUTO) 4.8 % (1.0-10.0); NEUTROPHILS % (AUTO) 70.6 % (45.0-75.0); PLATELET COUNT 366 K/UL (150-450); RED BLOOD COUNT 3.67 M/UL (4.20-5.40); RED CELL DISTRIBUTION WIDTH 11.2 % (11.6-14.8); WHITE BLOOD COUNT 12.7 K/UL (4.8-10.8)
[2018-08-19] MEDS: HydrALAZINE 10mg Tab GT SCH ×3 (06:03→17:59)
[2018-08-19] MEDS: Piperacillin/Tazobactam 3.375 GM in D5W 110 ML IVPB SCH ×3 (06:03→22:07)
[2018-08-19] MEDS: Colistin for inhalation INH SCH (07:00)
--- NOTE | 2018-08-19 07:06 | NUR ---
RESPIRATORY NOTE: Patient received mechanically ventilated on PB840 with current ordered vent settings. Patient has Trach size 7.0 Portex cuffed that is secured with a trach tie and guard. There were bilateral coarse breath sounds noted upon auscultation. Moderated amount of thick white/fernando secretions were suctioned without incident. There is an ambu bag available at the bedside and the vent is connected to a red outlet. Vent alarms are functional and audible. Patient appears comfortable at this time. Will continue to monitor.
--- NOTE | 2018-08-19 07:16 | NUR ---
HAND-OFF: Report given to TANYA CARTER RN using SBAR.no acute distress noted.
[2018-08-19 08:00] VITALS: BP 127/75
--- NOTE | 2018-08-19 08:10 | NUR ---
NURSE NOTES: received pt in the bed, awake, vent dependent, vital signs stable, no co pain, no SOB, skin warm and dry to touch, intact, tolerate GT feeding well, aston urine, pt has external catheter, bed in low position, HOB elevated.
[2018-08-19] MEDS: Pantoprazole Inj IV SCH (08:51)
[2018-08-19] MEDS: Heparin 5000 units/ml inj SUBQ SCH ×2 (08:53→21:00)
[2018-08-19] MEDS: Lactulose 20gm/30ml UDC GT SCH ×2 (09:00→17:59)
--- NOTE | 2018-08-19 09:00 | Diagnostic Imaging Report ---
Indication: Dyspnea Technique: One view of the chest Comparison: 08/16/2018 Findings: There appears to be somewhat improved aeration at the left lung base, although there is residual airspace disease. The right lung and pleural space are clear except for minimal right perihilar atelectasis. Tracheostomy remains Impression: Interim partial improvement of left basilar infiltrate, over 3 days
--- NOTE | 2018-08-19 10:05 | NUR ---
UNDERGRADUATE INTERNSHIPPERSONAL CARE SERVICE PROVIDER SI: CHEST PAIN . VENTILATOR DEPENDENT VS: BP 127/75, P 65, T 98.6, RR 16, SpO2 99 on Vent FiO2 40 WBC 12.7, RBC 3.65, Hgb 11.6, Hct 34.9, CR 0.5 IS: PIPERACILLIN 110ml IVPB NORVASC 5mg GT PROTONIX 40mg IV HEPARIN SUBQ APRESOLINE 10mg GT NOVOLOG SUBQ SDU STATUS
--- NOTE | 2018-08-19 10:12 | Pulmonolgy Critical Care Note ---
Critical Care - Asmt/Plan Problems: (1) Acute on chronic respiratory failure (2) Nosocomial pneumonia (3) Cardiac arrest (4) Feeding by G-tube (5) Sepsis Respiratory: monitor respiratory rate, adjust FIO2, ABG Cardiac: stop pressors, continue to monitor HR/BP Renal: keep IV fluid Infectious Disease: continue antibiotics Gastrointestinal: continue feedings/current rate Endocrine: monitor blood sugar, check HgA1C Neurologic: PRN Ativan, keep patient comfortable Prophylaxis: Protonix Disposition: keep in ICU Time Spent (Minutes): 30 Notes Reviewed: cardio Discussed with: nurses, consultants, continuous pillowcase cutterindustrial hygiene manager - Objective Last 24 Hour Vital Signs Date Time Temp Pulse Resp B/P (MAP) Pulse Ox O2 Delivery O2 Flow Rate FiO2 08/19/18 08:55 65 16 40 08/19/18 08:51 71 127/75 08/19/18 08:00 Mechanical Ventilator 08/19/18 08:00 40 08/19/18 08:00 98.6 71 16 127/75 (92) 99 08/19/18 07:42 76 08/19/18 06:55 71 16 40 08/19/18 06:03 127/75 08/19/18 05:30 60 16 40 08/19/18 04:00 Mechanical Ventilator 08/19/18 04:00 60 08/19/18 04:00 40 08/19/18 04:00 98.2 66 17 127/75 (92) 99 08/19/18 02:45 61 16 40 08/19/18 01:10 67 17 40 08/19/18 00:00 Mechanical Ventilator 08/19/18 00:00 71 08/19/18 00:00 97.8 72 16 123/72 (89) 100 08/18/18 23:47 123/72 08/18/18 22:51 67 16 40 08/18/18 21:09 75 16 40 08/18/18 20:14 90 22 40 08/18/18 20:00 Mechanical Ventilator 08/18/18 20:00 74 08/18/18 20:00 40 08/18/18 20:00 97.8 77 22 142/88 (106) 100 08/18/18 18:14 122/75 08/18/18 17:08 89 19 40 08/18/18 16:00 Mechanical Ventilator 08/18/18 16:00 40 08/18/18 16:00 97.5 70 16 122/75 (91) 100 08/18/18 16:00 68 08/18/18 14:50 72 18 40 08/18/18 12:50 84 16 40 08/18/18 12:01 141/82 08/18/18 12:00 64 08/18/18 12:00 40 08/18/18 12:00 Mechanical Ventilator 08/18/18 12:00 99.0 63 16 141/82 (101) 100 08/18/18 10:30 72 16 40 Status: awake Condition: critical Neck: full ROM Lungs: chest wall tender Heart: HR/BP stable, regular Abdomen: non-tender Extremities: no C/C/E, edema Decubiti: stage Micro: Microbiology Date/Time Source Procedure Growth Status 08/16/18 11:10 Blood Blood Culture - Preliminary NO GROWTH AFTER 48 HOURS Resulted 08/16/18 11:00 Blood Blood Culture - Preliminary NO GROWTH AFTER 48 HOURS Resulted 08/16/18 18:30 Sputum Gram Stain - Final Resulted 08/16/18 18:30 Sputum Culture - Preliminary Acinetobacter Baumannii Complx Gram Negative Bacillus 2 Resulted 08/16/18 13:00 Nasal Nares MRSA Culture - Final NO METHICILLIN RESISTANT STAPH AUREUS... Complete 08/16/18 11:00 Nasal Nares Influenza Types A,B Antigen (GAYLA) - Final Complete 08/16/18 13:00 Rectum VRE Culture - Final Enterococcus Faecalis - Vre Complete Accucheck: 146 Critical Care - Subjective ROS Limited/Unobtainable: No Condition: critical EKG Rhythm: Sinus Rhythm FI02: 40 Vent Support Breath Rate: 16 Vent Support Mode: AC Vent Tidal Volume: 500 Sputum Amount: Moderate PEEP: 5.0 PIP: 29 Tube Feeding Amount: 75 I&O: Intake and Output 08/18/18 08/19/18 18:59 06:59 Intake Total 1330.000 ml 810.0 ml Output Total 500 ml 950 ml Balance 830.000 ml -140.0 ml Intake Free Water 100 ml 100 ml IV Total 330.000 ml 110.0 ml Tube Feeding 900 ml 600 ml Output Urine Total 500 ml 950 ml # Bowel Movements 2 2 CXR: no change Labs: Laboratory Tests Test 08/19/18 03:30 White Blood Count 12.7 K/UL (4.8-10.8) H Red Blood Count 3.67 M/UL (4.20-5.40) L Hemoglobin 11.6 G/DL (12.0-16.0) L Hematocrit 34.9 % (37.0-47.0) L Mean Corpuscular Volume 95 FL (80-99) Mean Corpuscular Hemoglobin 31.6 PG (27.0-31.0) H Mean Corpuscular Hemoglobin Concent 33.2 G/DL (32.0-36.0) Red Cell Distribution Width 11.2 % (11.6-14.8) L Platelet Count 366 K/UL (150-450) Mean Platelet Volume 5.6 FL (6.5-10.1) L Neutrophils (%) (Auto) 70.6 % (45.0-75.0) Lymphocytes (%) (Auto) 20.6 % (20.0-45.0) Monocytes (%) (Auto) 4.8 % (1.0-10.0) Eosinophils (%) (Auto) 3.0 % (0.0-3.0) Basophils (%) (Auto) 1.0 % (0.0-2.0) Sodium Level 141 MMOL/L (136-145) Potassium Level 4.3 MMOL/L (3.5-5.1) Chloride Level 103 MMOL/L (98-107) Carbon Dioxide Level 28 MMOL/L (21-32) Anion Gap 10 mmol/L (5-15) Blood Urea Nitrogen 16 mg/dL (7-18) Creatinine 0.5 MG/DL (0.55-1.30) L Estimat Glomerular Filtration Rate > 60 mL/min (>60) Glucose Level 122 MG/DL (74-106) H Calcium Level 9.3 MG/DL (8.5-10.1) Curtis Mcgovern MD Aug 19, 2018 10:12
[2018-08-19 12:00] VITALS: BP 136/76
--- NOTE | 2018-08-19 12:44 | Infectious Diseases Prog Note ---
Assessment/Plan Assessment/Plan Abx: Zosyn x1 08/16 IV Vancomycin 08/16- Assessment: PNA -08/18 CXR: Interim partial improvement of left basilar infiltrate, over 3 days -CTA chest: No evidence of pulmonary embolism. Bronchiectasis with mild volume loss and consolidation in the left lower lobe, which may suggest atelectasis versus pneumonia. Small layering left pleural effusion. -sp cx MDR ABC (I Ceftazidime; S Amikacin), GNR #2 -influenza sc neg -CXR: Opacity in the left lung base which may represent pleural effusion and atelectasis. Pneumonia is not excluded. Afebrile Leukocytosis, mild, persistent -Bcx NTD -u/a neg Lactic acidosis, SP hx of cardiac arrest hx of cerebral hemorrhage c/w aphasia and R hemiplegia chronic trach and peg HLD HTN bed bound SNF resident Plan: -Continue Zosyn #3 for PNA and add IV Amikacin and INH colistin for MDR ABC -08/18 SP IV Vancomycin #2 -08/16 SP Zosyn x1 -f.u cx -Monitor CBC/CMP, temperatures -aspiration precautions -PEG/Trach care Thank you for this consultation. Will continue to follow along with you. Subjective Allergies: Coded Allergies: MILK (Verified Allergy, Unknown, 08/16/18) Subjective afebrile at 40% Bcx NTD leukocytosis stable b/t 11-12 Objective Vital Signs Last 24 Hour Vital Signs Date Time Temp Pulse Resp B/P (MAP) Pulse Ox O2 Delivery O2 Flow Rate FiO2 08/19/18 12:25 136/71 08/19/18 12:00 40 08/19/18 12:00 Mechanical Ventilator 08/19/18 10:30 94 24 40 08/19/18 08:55 65 16 40 08/19/18 08:51 71 127/75 08/19/18 08:00 Mechanical Ventilator 08/19/18 08:00 40 08/19/18 08:00 98.6 71 16 127/75 (92) 99 08/19/18 07:42 76 08/19/18 06:55 71 16 40 08/19/18 06:03 127/75 08/19/18 05:30 60 16 40 08/19/18 04:00 Mechanical Ventilator 08/19/18 04:00 60 08/19/18 04:00 40 08/19/18 04:00 98.2 66 17 127/75 (92) 99 08/19/18 02:45 61 16 40 08/19/18 01:10 67 17 40 08/19/18 00:00 Mechanical Ventilator 08/19/18 00:00 71 08/19/18 00:00 97.8 72 16 123/72 (89) 100 08/18/18 23:47 123/72 08/18/18 22:51 67 16 40 08/18/18 21:09 75 16 40 08/18/18 20:14 90 22 40 08/18/18 20:00 Mechanical Ventilator 08/18/18 20:00 74 08/18/18 20:00 40 08/18/18 20:00 97.8 77 22 142/88 (106) 100 08/18/18 18:14 122/75 08/18/18 17:08 89 19 40 08/18/18 16:00 Mechanical Ventilator 08/18/18 16:00 40 08/18/18 16:00 97.5 70 16 122/75 (91) 100 08/18/18 16:00 68 08/18/18 14:50 72 18 40 08/18/18 12:50 84 16 40 Height (Feet): 5 Height (Inches): 4.00 Weight (Pounds): 187 Objective HEENT: Pupils were round, equal, and reactive to light. Sclerae was white. . ENT, mucous membranes were not dehydrated. NECK: Supple. There was no goiter. No mass. No lymphadenopathy. There was no JVD. No bruits. LUNGS: Clear with decreased breath sounds in both bases, more on the left than on the right. HEART: There was normal S1 and normal S2. There was no murmur. No arrhythmia. No S3. No S4. No pericardial rub. ABDOMEN: Soft. Nontender without organomegaly. There were no masses palpable. Normal bowel sounds without bruits. There was no guarding. No rebound tenderness. No ascites. EXTREMITIES: No cyanosis, no clubbing, and no edema. Extremities were warm. Microbiology Date/Time Source Procedure Growth Status 08/16/18 18:30 Sputum Gram Stain - Final Resulted 08/16/18 18:30 Sputum Culture - Preliminary Acinetobacter Baumannii Complx Gram Negative Bacillus 2 Resulted 08/16/18 13:00 Nasal Nares MRSA Culture - Final NO METHICILLIN RESISTANT STAPH AUREUS... Complete 08/16/18 13:00 Rectum VRE Culture - Final Enterococcus Faecalis - Vre Complete Laboratory Tests Test 08/19/18 03:30 White Blood Count 12.7 K/UL (4.8-10.8) H Red Blood Count 3.67 M/UL (4.20-5.40) L Hemoglobin 11.6 G/DL (12.0-16.0) L Hematocrit 34.9 % (37.0-47.0) L Mean Corpuscular Volume 95 FL (80-99) Mean Corpuscular Hemoglobin 31.6 PG (27.0-31.0) H Mean Corpuscular Hemoglobin Concent 33.2 G/DL (32.0-36.0) Red Cell Distribution Width 11.2 % (11.6-14.8) L Platelet Count 366 K/UL (150-450) Mean Platelet Volume 5.6 FL (6.5-10.1) L Neutrophils (%) (Auto) 70.6 % (45.0-75.0) Lymphocytes (%) (Auto) 20.6 % (20.0-45.0) Monocytes (%) (Auto) 4.8 % (1.0-10.0) Eosinophils (%) (Auto) 3.0 % (0.0-3.0) Basophils (%) (Auto) 1.0 % (0.0-2.0) Sodium Level 141 MMOL/L (136-145) Potassium Level 4.3 MMOL/L (3.5-5.1) Chloride Level 103 MMOL/L (98-107) Carbon Dioxide Level 28 MMOL/L (21-32) Anion Gap 10 mmol/L (5-15) Blood Urea Nitrogen 16 mg/dL (7-18) Creatinine 0.5 MG/DL (0.55-1.30) L Estimat Glomerular Filtration Rate > 60 mL/min (>60) Glucose Level 122 MG/DL (74-106) H Calcium Level 9.3 MG/DL (8.5-10.1) Current Medications Medications (Trade) Dose Ordered Sig/Marzena Route PRN Reason Start Time Stop Time Status Last Admin Dose Admin Acetaminophen (Tylenol) 650 mg Q4H PRN GT FEVER 08/16/18 14:00 09/15/18 13:59 3/19/19 21:18 Albuterol/ Ipratropium (Albuterol/ Ipratropium) 3 ml Q4H PRN HHN Shortness of Breath 08/16/18 14:00 08/21/18 13:59 Amlodipine Besylate (Norvasc) 5 mg DAILY GT 08/17/18 09:00 09/16/18 08:59 08/19/18 08:51 Dextrose (Dextrose 50%) 25 ml Q30M PRN IV Hypoglycemia 08/16/18 16:00 09/15/18 15:59 Dextrose (Dextrose 50%) 50 ml Q30M PRN IV Hypoglycemia 08/16/18 16:00 09/15/18 15:59 Heparin Sodium (Porcine) (Heparin 5000 units/ml) 5,000 units EVERY 12 HOURS SUBQ 08/16/18 21:00 09/15/18 20:59 08/19/18 08:53 Hydralazine HCl (Apresoline) 10 mg EVERY 6 HOURS GT 08/16/18 18:00 09/15/18 17:59 08/19/18 12:25 Insulin Aspart (NovoLOG) Q6HR SUBQ 08/16/18 18:00 09/15/18 17:59 08/19/18 12:27 Lactulose (Cephulac) 20 gm TWICE A DAY GT 08/16/18 18:00 09/15/18 17:59 08/18/18 08:33 Lorazepam (Ativan 2mg/ml 1ml) 2 mg Q2H PRN IV For Anxiety 08/16/18 14:00 08/23/18 13:59 Morphine Sulfate (Morphine Sulfate) 4 mg Q4H PRN IVP Severe Pain (Pain Scale 7-10) 08/16/18 14:00 08/23/18 13:59 08/16/18 17:09 Ondansetron HCl (Zofran) 4 mg Q6H PRN IVP Nausea & Vomiting 08/16/18 14:00 09/15/18 13:59 Pantoprazole (Protonix) 40 mg DAILY IV 08/17/18 09:00 09/16/18 08:59 08/19/18 08:51 Piperacillin Sod/ Tazobactam Sod 3.375 gm/Dextrose 110 ml @ 27.5 mls/hr EVERY 8 HOURS IVPB 3/18/19 15:30 08/22/18 15:29 08/19/18 06:03 Polyethylene Glycol (Miralax) 17 gm DAILYPRN PRN GT Constipation 08/16/18 14:00 09/15/18 13:59 08/16/18 21:09 Yeny Webb M.D. Aug 19, 2018 12:44
[2018-08-19] MEDS ORDERED: Amikacin Rx to dose MISC PRN (12:45)
--- NOTE | 2018-08-19 13:30 | Progress Note ---
DATE: 08/18/2018 SUBJECTIVE: The patient is awake, alert, afebrile, and substantially previous visit. She is afebrile. Tachycardia resolved. PHYSICAL EXAMINATION: VITAL SIGNS: Blood pressure 123/72, pulse is 67, respirations 16, and temperature of 97.8. HEENT: Eyes were normal. ENT, mucous membranes were moist and intact. NECK: Supple with no JVD without lymph nodes. Tracheostomy site is clean. LUNGS: Clear without rhonchi, rales, or wheezing. Secretions are small, thin, and martinez. HEART: Normal sounds with regular beats. There is no S3, S4, or pericardial rub. ABDOMEN: Soft and nontender with normal bowel sounds. Gastrostomy site is clean. EXTREMITIES: Warm without cyanosis, clubbing, or edema. LABORATORY AND DIAGNOSTIC DATA: Her hemoglobin is 12.2, hematocrit 37.4 with MCV of 96, WBC of 11.8, and platelets are 400. BUN and creatinine are 20 and 0.5 respectively. Sodium is , potassium 3.9, chloride 104, and CO2 is 26. Her glucose is 111. Her lactic acid is 1.3. Her calcium is 9.8. SGOT, SGPT, and alkaline phosphatase are normal. Albumin is 3.0 and total protein is 7. Sputum culture reveals the patient has gram-negative bacilli. The patient had a venous duplex scan prior to coming in today system bilaterally in lower extremities. ASSESSMENT AND PLAN: The patient is currently on piperacillin and tazobactam 3.375 g IV piggyback q.8 h., and vancomycin treatment was completed today. the patient has markedly improved. Repeat laboratory tests will be done in the a.m. Karissa Fox M.D. DR: WALDO JOB#: [id number] CC:
[2018-08-19] MEDS: Amikacin 1,000 MG in NS 110 ML IV SCH (13:46)
--- NOTE | 2018-08-19 14:00 | NUR ---
NURSE NOTES: vital signs stable, bed bath given, repositioned, no co pain, continue monitoring.
[2018-08-19 16:00] VITALS: BP 113/66
--- NOTE | 2018-08-19 19:05 | NUR ---
HAND-OFF: Report given to HILARIO GHOSH.
--- NOTE | 2018-08-19 19:10 | NUR ---
NURSE NOTES: Received patient from AUGIE MARTÍNEZ. Awake, able to communicate. Trach to vent dependent with Portex 7, Mode on AC 16 TV 500 FIO2 40% PEEP 5 and sating 97-100% in no respiratory distress noted. Denies any pain at this time. SR on monitor. vs stable. afebrile ongoing GTF of Vital AF 1.2 at 75cc/hr with no residual. HOB kept elevated.. skin intact.skin clean and dry.contact isolation maintained. bed locked in low position. safety measures continued. will resume plan of care.
--- NOTE | 2018-08-19 19:43 | NUR ---
RESPIRATORY NOTE: RECEIVED PT ON CURRENT VENT SETTINGS: AC 16, VT 500, PEEP +5, FIO2 50%. PT PORTEX 7.0 CUFFED TRACH SECURE AND PATENT W/ TRACH TIE. CUFF PRESSURE CHECKED VIA WEB APPLICATION TESTER. NO RESP. DISTRESS NOTED. SPO2>92%.ALARMS ARE ON AND AUDIBLE. VENT PLUGGED INTO RED OUTLET. AMBU BAG AND SPARE TRACH AT BEDSIDE. WILL CONTINUE MONITORING PT.
[2018-08-19 20:00] VITALS: BP 122/72
[2018-08-20] VITALS: BP 123/75
[2018-08-20] MEDS: HydrALAZINE 10mg Tab GT SCH ×4 (00:06→17:33)
[2018-08-20] MEDS: Acetaminophen 650mg/20.3ml GT PRN (00:07)
[2018-08-20] MEDS: NovoLOG Insulin Flexpen SUBQ SCH ×4 (00:07→17:33)
[2018-08-20 02:31] LABS: BASOPHILS % (AUTO) 0.9 % (0.0-2.0); EOSINOPHILS % (AUTO) 2.6 % (0.0-3.0); HEMATOCRIT 35.6 % (37.0-47.0); HEMOGLOBIN 11.8 G/DL (12.0-16.0); LYMPHOCYTES % (AUTO) 29.3 % (20.0-45.0); MEAN CORPUSCULAR VOLUME 94 FL (80-99); MONOCYTES % (AUTO) 5.7 % (1.0-10.0); NEUTROPHILS % (AUTO) 61.5 % (45.0-75.0); PLATELET COUNT 378 K/UL (150-450); RED CELL DISTRIBUTION WIDTH 11.5 % (11.6-14.8); WHITE BLOOD COUNT 12.6 K/UL (4.8-10.8)
[2018-08-20 02:34] LABS: ANION GAP 10 mmol/L (5-15); BLOOD UREA NITROGEN 23 mg/dL (7-18); CALCIUM 9.6 MG/DL (8.5-10.1); CARBON DIOXIDE 28 MMOL/L (21-32); CHLORIDE 103 MMOL/L (98-107); CREATININE 0.6 MG/DL (0.55-1.30); POTASSIUM 3.6 MMOL/L (3.5-5.1); SODIUM 141 MMOL/L (136-145)
--- NOTE | 2018-08-20 03:02 | NUR ---
NURSE NOTES: Asleep in no acute respiratory distress noted. Tolerating well with current vent settings. o2 saturation 97-100%. no GT residual noted. SB with HR of 58. BP 123/75. Afebrile.Purewick in place with yellow urine. no bladder distention noted.Turned and repositioned.Performed sponge bath. skin kept clean and dry.Denies any pain .
[2018-08-20 04:00] VITALS: BP 131/77
--- NOTE | 2018-08-20 05:30 | NUR ---
RESPIRATORY NOTE: PT ANNE CURRENT VENT SETTINGS WELL. PT REFUSED TRACH CARE. NO RESP DISTRESS NOTED. WILL MONITOR PT.
[2018-08-20] MEDS: Piperacillin/Tazobactam 3.375 GM in D5W 110 ML IVPB SCH ×3 (06:12→21:08)
[2018-08-20] MEDS: Colistin for inhalation INH SCH ×2 (07:00→10:42)
--- NOTE | 2018-08-20 07:01 | NUR ---
RESPIRATORY NOTE: Patient received mechanically ventilated on PB 840 with current ordered vent settings. Patient has trach size 7.0 Portex cuffed that is secured with a trach tie and guard. There are bilateral coarse breath sounds auscultated and moderate amount of thick white and fernando secretions were suctioned without incident. There is an ambu bag available at the bedside and the vent is connected to a red outlet. Vent alarms are functional and audible. Will continue to monitor.
--- NOTE | 2018-08-20 07:45 | NUR ---
HAND-OFF: Report given to TIARA/AUGIE ZEPEDA using SBAR.Patient remains stable in condition.
--- NOTE | 2018-08-20 07:46 | NUR ---
NURSE NOTES: Received pt from AUGIE Mcfarland in stable condition with no cardiopulmonary distress noted. Pt is asleep in bed, tach to vent Portex 7 Ac 16 TV 500 FiO2 40% Peep 5. Pt has GT running vital AF 1.2 at 75cc/hr. Purewick noted draining yellow urine. L hand 22g IV and R hand 18g noted and patent. Skin is intact. Pt is on SCDs. Bed is in lowest position. Call light within reach. Bed alarm on. Side rails up x 2 and padded for seziure precaution. Will continue to monitor pt.
[2018-08-20 08:00] VITALS: BP 144/71
[2018-08-20] MEDS: Lactulose 20gm/30ml UDC GT SCH ×2 (08:24→17:33)
[2018-08-20] MEDS: Heparin 5000 units/ml inj SUBQ SCH ×2 (08:29→21:10)
--- NOTE | 2018-08-20 11:18 | Pulmonolgy Critical Care Note ---
Critical Care - Asmt/Plan Problems: (1) Acute on chronic respiratory failure (2) Nosocomial pneumonia (3) Cardiac arrest (4) Feeding by G-tube (5) Sepsis Respiratory: monitor respiratory rate, adjust FIO2, CXR Cardiac: continue to monitor HR/BP Renal: F/U I&O, keep IV fluid Infectious Disease: check cultures Gastrointestinal: continue feedings/current rate Endocrine: monitor blood sugar, check HgA1C Hematologic: monitor H/H, transfuse if hgb<8.5 Neurologic: PRN Ativan, keep patient comfortable Affect: PRN ativan Prophylaxis: Protonix Notes Reviewed: camp recreation specialist, cardio Discussed with: nurses, consultants, case making machine operatordigital marketing project manager - Objective Last 24 Hour Vital Signs Date Time Temp Pulse Resp B/P (MAP) Pulse Ox O2 Delivery O2 Flow Rate FiO2 08/20/18 10:34 65 24 40 40 08/20/18 08:32 68 18 40 40 08/20/18 08:24 63 144/71 08/20/18 08:00 Mechanical Ventilator 08/20/18 08:00 63 08/20/18 08:00 40 08/20/18 08:00 99.7 63 18 144/71 (95) 100 08/20/18 06:55 62 16 40 40 08/20/18 06:12 131/77 08/20/18 05:23 60 17 40 40 08/20/18 04:00 81 08/20/18 04:00 Mechanical Ventilator 08/20/18 04:00 98.1 61 16 131/77 (95) 100 08/20/18 04:00 40 08/20/18 02:46 54 16 40 40 08/20/18 00:34 61 21 40 40 08/20/18 00:06 123/75 08/20/18 00:00 40 08/20/18 00:00 54 08/20/18 00:00 97.9 57 16 123/75 (91) 99 08/20/18 00:00 Mechanical Ventilator 08/19/18 22:57 55 16 40 40 08/19/18 20:32 51 16 40 40 08/19/18 20:00 52 08/19/18 20:00 98.4 57 17 122/72 (89) 99 08/19/18 20:00 40 08/19/18 20:00 Mechanical Ventilator 08/19/18 19:43 59 16 40 40 08/19/18 17:59 113/66 08/19/18 17:27 53 16 40 08/19/18 16:27 Mechanical Ventilator 08/19/18 16:00 40 08/19/18 16:00 58 08/19/18 16:00 98.1 56 16 113/66 (82) 100 08/19/18 15:22 72 16 40 08/19/18 12:45 75 18 40 08/19/18 12:25 136/71 08/19/18 12:00 66 08/19/18 12:00 40 08/19/18 12:00 Mechanical Ventilator 08/19/18 12:00 98.2 72 16 136/76 (96) 99 Status: awake Condition: improving Neck: full ROM Lungs: clear Heart: HR/BP stable, regular Abdomen: non-tender, feeding tube Extremities: no C/C/E Accucheck: 138 Critical Care - Subjective Condition: critical EKG Rhythm: Sinus Rhythm FI02: 40 Vent Support Breath Rate: 16 Vent Support Mode: AC Vent Tidal Volume: 500 Sputum Amount: Moderate PEEP: 5.0 PIP: 33 Tube Feeding Amount: 75 I&O: Intake and Output 08/19/18 08/20/18 18:59 06:59 Intake Total 901.5 ml 1210.0 ml Output Total 350 ml 550 ml Balance 551.5 ml 660.0 ml Intake Free Water 50 ml 200 ml IV Total 251.5 ml 110.0 ml Tube Feeding 600 ml 900 ml Output Urine Total 350 ml 550 ml # Bowel Movements 3 Labs: Laboratory Tests Test 08/20/18 02:05 White Blood Count 12.6 K/UL (4.8-10.8) H Red Blood Count 3.80 M/UL (4.20-5.40) L Hemoglobin 11.8 G/DL (12.0-16.0) L Hematocrit 35.6 % (37.0-47.0) L Mean Corpuscular Volume 94 FL (80-99) Mean Corpuscular Hemoglobin 31.1 PG (27.0-31.0) H Mean Corpuscular Hemoglobin Concent 33.2 G/DL (32.0-36.0) Red Cell Distribution Width 11.5 % (11.6-14.8) L Platelet Count 378 K/UL (150-450) Mean Platelet Volume 6.0 FL (6.5-10.1) L Neutrophils (%) (Auto) 61.5 % (45.0-75.0) Lymphocytes (%) (Auto) 29.3 % (20.0-45.0) Monocytes (%) (Auto) 5.7 % (1.0-10.0) Eosinophils (%) (Auto) 2.6 % (0.0-3.0) Basophils (%) (Auto) 0.9 % (0.0-2.0) Sodium Level 141 MMOL/L (136-145) Potassium Level 3.6 MMOL/L (3.5-5.1) Chloride Level 103 MMOL/L (98-107) Carbon Dioxide Level 28 MMOL/L (21-32) Anion Gap 10 mmol/L (5-15) Blood Urea Nitrogen 23 mg/dL (7-18) H Creatinine 0.6 MG/DL (0.55-1.30) Estimat Glomerular Filtration Rate > 60 mL/min (>60) Glucose Level 142 MG/DL (74-106) H Calcium Level 9.6 MG/DL (8.5-10.1) Random Amikacin Level 3.3 ug/mL Curtis Mcgovern MD Aug 20, 2018 11:18
--- NOTE | 2018-08-20 11:26 | NUR ---
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 VENTILATOR DEPENDENT VS: BP 144/71, P 62, T 99.7, RR 16, SpO2 100 on Vent FiO2 40 WBC 12.6, RBC 3.80, Hgb 11.8, Hct 35.6, BUN 23 IS: LANSOPRAZOLE 30mg GT COLISTIMETHATE 150mg INH PIPERACILLIN 110ml IVPB NORVASC 5mg GT LACTULOSE 20gm HEPARIN SUBQ APRESOLINE 10mg GT NOVOLOG SUBQ SDU STATUS SDU STATUS
--- NOTE | 2018-08-20 11:37 | NUR ---
*-* INSURANCE *-* CLINICALS AND REVIEWS HAVE BEEN FAXED TO: [facility]/W [employer]VIR @ [phone] [facility] WILL TRACK THIS ADMISSION NO BOMB TECHNICIAN ASSIGNED AT THIS TIME. PLEASE FAX THE REVIEW/CLINICAL P- [phone] f- [phone]
--- NOTE | 2018-08-20 11:55 | NUR ---
VBG Results: Drawn by RN On BiPAP 21/10 with 35% O2 pH 7.350 pCO2 51.4 pO2 50.6 HCO3 27.7 BE 1.6 sO2 87.1 RN notified. Addendum: 08/20/18 at 1157 by JON ADKINS, RT RT Entered in Error. Incorrect patient.
[2018-08-20 11:58] VITALS: BP 151/91
--- NOTE | 2018-08-20 12:01 | Infectious Diseases Prog Note ---
Assessment/Plan Assessment/Plan Abx: Zosyn x1 08/16 IV Vancomycin 08/16- Assessment: PNA -08/18 CXR: Interim partial improvement of left basilar infiltrate, over 3 days -CTA chest: No evidence of pulmonary embolism. Bronchiectasis with mild volume loss and consolidation in the left lower lobe, which may suggest atelectasis versus pneumonia. Small layering left pleural effusion. -sp cx MDR ABC (I Ceftazidime; S Amikacin), PsA (arce S) -influenza sc neg -CXR: Opacity in the left lung base which may represent pleural effusion and atelectasis. Pneumonia is not excluded. Afebrile Leukocytosis, mild, persistent -Bcx NTD -u/a neg Lactic acidosis, SP hx of cardiac arrest hx of cerebral hemorrhage c/w aphasia and R hemiplegia chronic trach and peg HLD HTN bed bound SNF resident Plan: -Continue Zosyn #4/7 for PNA and IV Amikacin and INH colistin #2/7-10 for MDR ABC -08/18 SP IV Vancomycin #2 -08/16 SP Zosyn x1 -f.u cx -Monitor CBC/CMP, temperatures -aspiration precautions -PEG/Trach care Thank you for this consultation. Will continue to follow along with you. Subjective Allergies: Coded Allergies: MILK (Verified Allergy, Unknown, 08/16/18) Subjective afebrile at 40% Bcx NTD leukocytosis stable b/t 11-12 Objective Vital Signs Last 24 Hour Vital Signs Date Time Temp Pulse Resp B/P (MAP) Pulse Ox O2 Delivery O2 Flow Rate FiO2 08/20/18 10:34 65 24 40 40 08/20/18 08:32 68 18 40 40 08/20/18 08:24 63 144/71 08/20/18 08:00 Mechanical Ventilator 08/20/18 08:00 63 08/20/18 08:00 40 08/20/18 08:00 99.7 63 18 144/71 (95) 100 08/20/18 06:55 62 16 40 40 08/20/18 06:12 131/77 08/20/18 05:23 60 17 40 40 08/20/18 04:00 81 08/20/18 04:00 Mechanical Ventilator 08/20/18 04:00 98.1 61 16 131/77 (95) 100 3/21/19 04:00 40 08/20/18 02:46 54 16 40 40 08/20/18 00:34 61 21 40 40 08/20/18 00:06 123/75 08/20/18 00:00 40 08/20/18 00:00 54 08/20/18 00:00 97.9 57 16 123/75 (91) 99 08/20/18 00:00 Mechanical Ventilator 08/19/18 22:57 55 16 40 40 08/19/18 20:32 51 16 40 40 08/19/18 20:00 52 08/19/18 20:00 98.4 57 17 122/72 (89) 99 08/19/18 20:00 40 08/19/18 20:00 Mechanical Ventilator 08/19/18 19:43 59 16 40 40 08/19/18 17:59 113/66 08/19/18 17:27 53 16 40 08/19/18 16:27 Mechanical Ventilator 08/19/18 16:00 40 08/19/18 16:00 58 08/19/18 16:00 98.1 56 16 113/66 (82) 100 08/19/18 15:22 72 16 40 08/19/18 12:45 75 18 40 08/19/18 12:25 136/71 08/19/18 12:00 66 08/19/18 12:00 40 08/19/18 12:00 Mechanical Ventilator 08/19/18 12:00 98.2 72 16 136/76 (96) 99 Height (Feet): 5 Height (Inches): 4.00 Weight (Pounds): 187 Objective HEENT: Pupils were round, equal, and reactive to light. Sclerae was white. . ENT, mucous membranes were not dehydrated. NECK: Supple. There was no goiter. No mass. No lymphadenopathy. There was no JVD. No bruits. LUNGS: Clear with decreased breath sounds in both bases, more on the left than on the right. HEART: There was normal S1 and normal S2. There was no murmur. No arrhythmia. No S3. No S4. No pericardial rub. ABDOMEN: Soft. Nontender without organomegaly. There were no masses palpable. Normal bowel sounds without bruits. There was no guarding. No rebound tenderness. No ascites. EXTREMITIES: No cyanosis, no clubbing, and no edema. Extremities were warm. Laboratory Tests Test 08/20/18 02:05 White Blood Count 12.6 K/UL (4.8-10.8) H Red Blood Count 3.80 M/UL (4.20-5.40) L Hemoglobin 11.8 G/DL (12.0-16.0) L Hematocrit 35.6 % (37.0-47.0) L Mean Corpuscular Volume 94 FL (80-99) Mean Corpuscular Hemoglobin 31.1 PG (27.0-31.0) H Mean Corpuscular Hemoglobin Concent 33.2 G/DL (32.0-36.0) Red Cell Distribution Width 11.5 % (11.6-14.8) L Platelet Count 378 K/UL (150-450) Mean Platelet Volume 6.0 FL (6.5-10.1) L Neutrophils (%) (Auto) 61.5 % (45.0-75.0) Lymphocytes (%) (Auto) 29.3 % (20.0-45.0) Monocytes (%) (Auto) 5.7 % (1.0-10.0) Eosinophils (%) (Auto) 2.6 % (0.0-3.0) Basophils (%) (Auto) 0.9 % (0.0-2.0) Sodium Level 141 MMOL/L (136-145) Potassium Level 3.6 MMOL/L (3.5-5.1) Chloride Level 103 MMOL/L (98-107) Carbon Dioxide Level 28 MMOL/L (21-32) Anion Gap 10 mmol/L (5-15) Blood Urea Nitrogen 23 mg/dL (7-18) H Creatinine 0.6 MG/DL (0.55-1.30) Estimat Glomerular Filtration Rate > 60 mL/min (>60) Glucose Level 142 MG/DL (74-106) H Calcium Level 9.6 MG/DL (8.5-10.1) Random Amikacin Level 3.3 ug/mL Current Medications Medications (Trade) Dose Ordered Sig/Marzena Route PRN Reason Start Time Stop Time Status Last Admin Dose Admin Acetaminophen (Tylenol) 650 mg Q4H PRN GT FEVER 08/16/18 14:00 09/15/18 13:59 08/20/18 00:07 Albuterol/ Ipratropium (Albuterol/ Ipratropium) 3 ml Q4H PRN HHN Shortness of Breath 08/16/18 14:00 08/21/18 13:59 Amikacin Protocol (Amikacin pharmacy to dose) 1 ea DAILY PRN MISC Per rx protocol 08/19/18 12:45 09/18/18 12:44 Amikacin Sulfate 1000 mg/Sodium Chloride 114 ml @ 114 mls/hr Q24H IV 08/19/18 14:00 08/26/18 13:59 08/19/18 13:46 Amlodipine Besylate (Norvasc) 5 mg DAILY GT 08/17/18 09:00 09/16/18 08:59 08/20/18 08:24 Colistimethate Sodium (Colistin *inhalation use only*) 150 mg Q12HR@10,22 INH 08/19/18 22:00 08/26/18 21:59 08/20/18 10:42 Dextrose (Dextrose 50%) 25 ml Q30M PRN IV Hypoglycemia 08/16/18 16:00 09/15/18 15:59 Dextrose (Dextrose 50%) 50 ml Q30M PRN IV Hypoglycemia 08/16/18 16:00 09/15/18 15:59 Heparin Sodium (Porcine) (Heparin 5000 units/ml) 5,000 units EVERY 12 HOURS SUBQ 08/16/18 21:00 09/15/18 20:59 08/20/18 08:29 Hydralazine HCl (Apresoline) 10 mg EVERY 6 HOURS GT 08/16/18 18:00 09/15/18 17:59 08/20/18 06:12 Insulin Aspart (NovoLOG) Q6HR SUBQ 08/16/18 18:00 09/15/18 17:59 08/20/18 06:13 Lactulose (Cephulac) 20 gm TWICE A DAY GT 08/16/18 18:00 09/15/18 17:59 08/20/18 08:24 Lansoprazole (Prevacid) 30 mg DAILY GT 08/20/18 09:00 09/19/18 08:59 08/20/18 08:24 Lorazepam (Ativan 2mg/ml 1ml) 2 mg Q2H PRN IV For Anxiety 08/16/18 14:00 08/23/18 13:59 Morphine Sulfate (Morphine Sulfate) 4 mg Q4H PRN IVP Severe Pain (Pain Scale 7-10) 08/16/18 14:00 08/23/18 13:59 08/16/18 17:09 Ondansetron HCl (Zofran) 4 mg Q6H PRN IVP Nausea & Vomiting 08/16/18 14:00 09/15/18 13:59 Piperacillin Sod/ Tazobactam Sod 3.375 gm/Dextrose 110 ml @ 27.5 mls/hr EVERY 8 HOURS IVPB 08/17/18 15:30 08/22/18 15:29 08/20/18 06:12 Polyethylene Glycol (Miralax) 17 gm DAILYPRN PRN GT Constipation 08/16/18 14:00 09/15/18 13:59 08/16/18 21:09 Yeny Webb M.D. Aug 20, 2018 12:01
--- NOTE | 2018-08-20 12:45 | Progress Note ---
DATE: 08/19/2018 NOTE: POOR AUDIO SUBJECTIVE: The patient is awake alert, afebrile, and hemodynamically stable. PHYSICAL EXAMINATION: VITAL SIGNS: Blood pressure 125/75, her pulse is 57, respirations of 16, and temperature 97.9. HEENT: Eyes were normal. ENT, mucous membranes were moist and intact. NECK: Supple with no JVD without lymph nodes. Tracheostomy site is clean. LUNGS: Clear bilateral rhonchi in both lower lobes. HEART: Normal sounds with regular beats. There is no S3, S4, or pericardial rub. There is no tachycardia at rest. ABDOMEN: Soft and nontender with normal bowel sounds. Gastrostomy site is clean. EXTREMITIES: Warm without cyanosis, clubbing, or edema. LABORATORY AND DIAGNOSTIC DATA: Her hemoglobin is 11.6, hematocrit 24.9 with MCV of 95, WBC of 12.7, and platelets 366. Her BUN and creatinine are 16 and 0.5 respectively. Her sodium is 141, potassium 4.3, chloride 103, and CO2 is 28. Acinetobacter baumannii. The patient is sensitive to amikacin only . IMPRESSION AND PLAN: The patient is clinically progressively improving. Repeat laboratory tests will be done in the a.m. Karissa Fox M.D. DR: NEGRO JOB#: [id number] CC:
--- NOTE | 2018-08-20 13:00 | Progress Note ---
ADDENDUM The patient was unable to void yesterday and Jones catheter was inserted and 350 mL of urine was removed several hours later was removed, the patient again exhibit inability to empty her bladder, therefore Jones catheter was inserted today and Urology consult called to assist in the management of this case. Karissa Fox M.D. DR: RICARDO JOB#: [id number] CC:
[2018-08-20] MEDS: Amikacin 1,000 MG in NS 110 ML IV SCH (13:24)
[2018-08-20 16:00] VITALS: BP 134/72
--- NOTE | 2018-08-20 18:00 | NUR ---
Pt asked for endotracheal cuff to be deflated so she could speak. RT notified and came to deflate cuff. Pt is refusing oral care and states she is allergic to insulin. She refused insulin all day. BG 123-124. Explained to pt that insulin was ordered by MD and that it is necessary to keep BG levels WNL. Also explained importance of oral care to prevent VAP. Pt still refused oral care and insulin. Cuff reinflated. Bed in lowest position and alarm on. Side rails up x 2. Will continue to monitor pt.
--- NOTE | 2018-08-20 19:30 | NUR ---
HAND-OFF: Report given to AUGIE Rojo. Pt in stable condition.
[2018-08-20 20:00] VITALS: BP 134/70
--- NOTE | 2018-08-20 21:10 | NUR ---
NURSE NOTES: Received bedside report from AUGIE Rojo.Patient stable,open eyes,no-verbal,SR on radiation monitor,Portex 7 AC 16 TV 500 FiO2 20% PEEP 5 tolerated well,GT running with Vital AF 1.2@75 ml/hr, IV asymptomatic,intact on L hand G22 and R hand G18 ,BS active in all quadrants,bed secured,call light within a reach,will continue to monitor and follow POC,family at bedside.
[2018-08-21] VITALS: BP 132/78
[2018-08-21 04:00] VITALS: BP 142/82
--- NOTE | 2018-08-21 06:30 | NUR ---
RESPIRATORY NOTE: Received pt on trach cuffed portex 7.0, secured by trach tie and trach guard, with current vent setting. Pt is awake, eyes open, vent dependent, tolerating the setting well. Roman diminished breath sound heard upon auscultation, sxn moderate amount of thick white/fernando secretions without incidents. Alarms are set and audible, vent is plugged into the red outlet, ambu bag is at bedside. Will continue to monitor pt and sxn as needed.
[2018-08-21] MEDS: Piperacillin/Tazobactam 3.375 GM in D5W 110 ML IVPB SCH ×3 (06:52→21:27)
[2018-08-21] MEDS: HydrALAZINE 10mg Tab GT SCH ×3 (06:52→17:40)
[2018-08-21] MEDS: NovoLOG Insulin Flexpen SUBQ SCH ×3 (06:54→17:40)
--- NOTE | 2018-08-21 07:15 | Progress Note ---
DATE: 08/20/2018 SUBJECTIVE: The patient is awake, alert, afebrile, hemodynamically stable, and attempts to communicate. PHYSICAL EXAMINATION: VITAL SIGNS: Blood pressure 108/74, pulse was 98, respirations were 16, and temperature was 97.8. HEENT: Eyes were normal. ENT, mucous membranes were moist and intact. NECK: Supple with no JVD without lymph nodes. Tracheostomy site is clean. LUNGS: There are bilateral rhonchi in both lungs and diffuse with decreased breath sounds in left lower lobe bilaterally. HEART: Normal sounds with regular beats. There is near tachycardia at rest. ABDOMEN: Soft and nontender with normal bowel sounds. Gastrostomy site is clean. EXTREMITIES: Warm without cyanosis, clubbing, or edema. LABORATORY DATA: No laboratory data available at the time of this dictation in the computer . This laboratory data will be dictated in the following progress note on 08/21/2018. Karissa Fox M.D. DR: WALDO JOB#: [id number] CC:
--- NOTE | 2018-08-21 07:30 | NUR ---
HAND-OFF: Report given to AUGIE Urena.Patientstable.
--- NOTE | 2018-08-21 07:35 | NUR ---
NURSE NOTES: Received pt from AUGIE Pelletier. Pt is asleep with no cardiopulmonary distress. Pt is trach to vent Portex 7 AC 16 TV 500 FiO2 40% Peep 5. GT noted running Vital AF 1.2 at 7s cc/hr. No residuals at this time & pt flushed with 50cc H20. L wrist 22g IV noted. Pt has a purewick and towel soaked in urine above perineal area. Will remove towel and replace pure-wick. No BM noted at this time. Bed is in lowest position, SCDs and bed alarm on, side rails up x 3, Call light within reach. Will continue to monitor pt.
[2018-08-21 08:00] VITALS: BP 156/89
--- NOTE | 2018-08-21 08:30 | NUR ---
Pt is refusing oral care. Explained to pt that it is important for ventilator-associated pneumonia prevention but pt is still refusing. Will follow up with pt again later.
[2018-08-21] MEDS: Lactulose 20gm/30ml UDC GT SCH ×2 (09:32→17:39)
[2018-08-21] MEDS: Heparin 5000 units/ml inj SUBQ SCH ×2 (09:39→21:26)
[2018-08-21] MEDS: Colistin for inhalation INH SCH ×2 (09:44→23:03)
--- NOTE | 2018-08-21 10:00 | NUR ---
NURSE NOTES: F/C removed and pt transported to GI Lab for PEG procedure via hospital bed with O2 Tank 2L NC. Pt in stable condition. Tele box accompanied with pt. Addendum: 08/21/18 at 1147 by Shante Dempsey RN Wrong pt.
--- NOTE | 2018-08-21 10:29 | NUR ---
RD ASSESSMENT & RECOMMENDATIONS SEE CARE ACTIVITY FOR COMPLETE ASSESSMENT DAILY ESTIMATED NEEDS: Needs based on Critical care, sepsis 61kg adj 22-30 kcals/kg 0670-8984 total kcals 1.2-2 g protein/kg 73-122 g total protein 25-30 mL/kg 6252-7610 total fluid mLs NUTRITION DIAGNOSIS: Swallowing difficulty r/t respiratory status as evidenced by pt is vent dep via trach w/ PEG. CURRENT TF:Vital AF 1.2 @75ml/hr x20 hrs ENTERAL NUTRITION RECOMMENDATIONS: VITAL AF 1.2 @65ml/hr x20 hrs to provide 1300ml, 1560 kcal, 98g pro, 1054ml free H2o - REC TO LOWER TF TO GOAL OF 65ML/HR FROM CURRENT 75ML/HR. - Flush per MD/ HOB over 30 degrees ADDITIONAL RECOMMENDATIONS: 1) MONITOR FOR SIGNS OF INTOLERANCE TO FORMULA PT PREVIOUSLY ON SOY BASED FORMULA 2) Monitor lytes, BG daily 3) RE-calibrate bed scale as able: Pt is 178# from SNF (per EMR:190#)
--- NOTE | 2018-08-21 11:02 | Pulmonolgy Critical Care Note ---
Critical Care - Asmt/Plan Problems: (1) Acute on chronic respiratory failure (2) Nosocomial pneumonia (3) Cardiac arrest (4) Feeding by G-tube (5) Sepsis Respiratory: monitor respiratory rate, adjust FIO2, CXR Cardiac: continue to monitor HR/BP Renal: F/U I&O, keep IV fluid, check electrolytes Infectious Disease: check cultures Gastrointestinal: continue feedings/current rate Endocrine: monitor blood sugar Hematologic: monitor H/H, transfuse if hgb<8.5 Neurologic: PRN Morphine, keep patient comfortable Prophylaxis: Protonix Disposition: keep in ICU Notes Reviewed: sock ironer Discussed with: nurses, consultants, 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 - Objective Last 24 Hour Vital Signs Date Time Temp Pulse Resp B/P (MAP) Pulse Ox O2 Delivery O2 Flow Rate FiO2 08/21/18 09:54 67 16 99 Mechanical Ventilator 40 08/21/18 09:44 75 16 98 Mechanical Ventilator 40 08/21/18 09:30 73 156/89 08/21/18 09:00 73 19 40 08/21/18 08:00 40 08/21/18 08:00 99.6 85 17 156/89 (111) 100 08/21/18 08:00 Mechanical Ventilator 08/21/18 08:00 79 08/21/18 06:52 142/82 08/21/18 06:30 67 19 40 40 08/21/18 04:00 Mechanical Ventilator 08/21/18 04:00 100.5 70 18 142/82 (102) 100 08/21/18 04:00 40 08/21/18 03:45 64 08/21/18 00:00 98.9 65 17 132/78 (96) 100 08/21/18 00:00 Mechanical Ventilator 08/20/18 23:43 68 08/20/18 20:00 Mechanical Ventilator 08/20/18 20:00 40 08/20/18 20:00 98.9 63 17 134/70 (91) 100 08/20/18 19:09 64 16 40 40 08/20/18 19:03 62 08/20/18 17:33 134/72 08/20/18 17:29 60 29 40 40 08/20/18 16:00 61 08/20/18 16:00 99.1 61 16 134/72 (92) 100 08/20/18 16:00 Mechanical Ventilator 08/20/18 16:00 40 08/20/18 14:46 69 16 40 40 08/20/18 13:29 62 16 40 40 08/20/18 12:07 151/91 08/20/18 12:00 79 08/20/18 12:00 40 08/20/18 12:00 Mechanical Ventilator 08/20/18 11:58 98.7 76 19 151/91 (111) 99 Status: awake Condition: improving Neck: full ROM Heart: HR/BP stable, HR/BP unstable Abdomen: non-tender, feeding tube Extremities: edema Decubiti: location Accucheck: 151 Critical Care - Subjective ROS Limited/Unobtainable: Yes Condition: critical EKG Rhythm: Sinus Rhythm FI02: 40 Vent Support Breath Rate: 16 Vent Support Mode: AC Vent Tidal Volume: 500 Sputum Amount: Small PEEP: 5.0 PIP: 27 Tube Feeding Amount: 65 I&O: Intake and Output 08/20/18 08/21/18 19:00 07:00 Intake Total 1134.0 ml 908.8 ml Output Total 375 ml 550 ml Balance 759.0 ml 358.8 ml Intake Free Water 200 ml 60 ml IV Total 334.0 ml 23.8 ml Tube Feeding 600 ml 825 ml Output Urine Total 375 ml 550 ml CXR: no change Curtis Mcgovern MD Aug 21, 2018 11:02
[2018-08-21 12:00] VITALS: BP 136/85
[2018-08-21] MEDS: Amikacin 1,000 MG in NS 110 ML IV SCH (13:29)
--- NOTE | 2018-08-21 14:11 | NUR ---
Social Service Note Patient is a [facility] resident of [facility] 10/2017 subacute. Patient with Vent and Trach. POLST completed by kay Hayden Schneider [phone] indicated Full Code, Full treatment and long-term artificial nutrition. Patient will continue to require sub-acute placement upon discharge.
--- NOTE | 2018-08-21 14:59 | Infectious Diseases Prog Note ---
Assessment/Plan Assessment/Plan Assessment: PNA -08/18 CXR: Interim partial improvement of left basilar infiltrate, over 3 days -CTA chest: No evidence of pulmonary embolism. Bronchiectasis with mild volume loss and consolidation in the left lower lobe, which may suggest atelectasis versus pneumonia. Small layering left pleural effusion. -sp cx MDR ABC (I Ceftazidime; S Amikacin), PsA (arce S) -influenza sc neg -CXR: Opacity in the left lung base which may represent pleural effusion and atelectasis. Pneumonia is not excluded. Low grade fever x1 Leukocytosis, mild, persistent -Bcx NTD -u/a neg Lactic acidosis, SP hx of cardiac arrest hx of cerebral hemorrhage c/w aphasia and R hemiplegia chronic trach and peg HLD HTN bed bound SNF resident Plan: -Continue Zosyn #5/7 for PNA and IV Amikacin and INH colistin #3/7-10 for MDR ABC -08/18 SP IV Vancomycin #2 -08/16 SP Zosyn x1 -f.u cx -Monitor CBC/CMP, temperatures -aspiration precautions -PEG/Trach care -CBC, CMP am Thank you for this consultation. Will continue to follow along with you. Subjective Allergies: Coded Allergies: MILK (Verified Allergy, Unknown, 08/16/18) Subjective Tm 100.5 x1 at 40% Bcx NTD leukocytosis stable b/t 11-12 Objective Vital Signs Last 24 Hour Vital Signs Date Time Temp Pulse Resp B/P (MAP) Pulse Ox O2 Delivery O2 Flow Rate FiO2 08/21/18 12:31 68 16 40 08/21/18 12:00 99.4 66 16 136/85 (102) 99 08/21/18 12:00 40 08/21/18 12:00 67 08/21/18 12:00 136/85 08/21/18 12:00 Mechanical Ventilator 08/21/18 11:00 75 16 40 08/21/18 09:54 67 16 99 Mechanical Ventilator 40 08/21/18 09:44 75 16 98 Mechanical Ventilator 40 08/21/18 09:30 73 156/89 08/21/18 09:00 73 19 40 08/21/18 08:00 40 08/21/18 08:00 99.6 85 17 156/89 (111) 100 08/21/18 08:00 Mechanical Ventilator 08/21/18 08:00 79 08/21/18 06:52 142/82 08/21/18 06:30 67 19 40 40 08/21/18 04:00 Mechanical Ventilator 08/21/18 04:00 100.5 70 18 142/82 (102) 100 08/21/18 04:00 40 08/21/18 03:45 64 08/21/18 00:00 98.9 65 17 132/78 (96) 100 08/21/18 00:00 Mechanical Ventilator 08/20/18 23:43 68 08/20/18 20:00 Mechanical Ventilator 08/20/18 20:00 40 08/20/18 20:00 98.9 63 17 134/70 (91) 100 08/20/18 19:09 64 16 40 40 08/20/18 19:03 62 08/20/18 17:33 134/72 08/20/18 17:29 60 29 40 40 08/20/18 16:00 61 08/20/18 16:00 99.1 61 16 134/72 (92) 100 08/20/18 16:00 Mechanical Ventilator 08/20/18 16:00 40 Height (Feet): 5 Height (Inches): 4.00 Weight (Pounds): 187 Objective HEENT: Pupils were round, equal, and reactive to light. Sclerae was white. . ENT, mucous membranes were not dehydrated. NECK: Supple. There was no goiter. No mass. No lymphadenopathy. There was no JVD. No bruits. LUNGS: Clear with decreased breath sounds in both bases, more on the left than on the right. HEART: There was normal S1 and normal S2. There was no murmur. No arrhythmia. No S3. No S4. No pericardial rub. ABDOMEN: Soft. Nontender without organomegaly. There were no masses palpable. Normal bowel sounds without bruits. There was no guarding. No rebound tenderness. No ascites. EXTREMITIES: No cyanosis, no clubbing, and no edema. Extremities were warm. Current Medications Medications (Trade) Dose Ordered Sig/Marzena Route PRN Reason Start Time Stop Time Status Last Admin Dose Admin Acetaminophen (Tylenol) 650 mg Q4H PRN GT FEVER 08/16/18 14:00 09/15/18 13:59 08/20/18 00:07 Amikacin Protocol (Amikacin pharmacy to dose) 1 ea DAILY PRN MISC Per rx protocol 08/19/18 12:45 09/18/18 12:44 Amikacin Sulfate 1000 mg/Sodium Chloride 114 ml @ 114 mls/hr Q24H IV 08/19/18 14:00 08/26/18 13:59 08/21/18 13:29 Amlodipine Besylate (Norvasc) 5 mg DAILY GT 08/17/18 09:00 09/16/18 08:59 08/21/18 09:30 Colistimethate Sodium (Colistin *inhalation use only*) 150 mg Q12HR@10,22 INH 08/19/18 22:00 08/26/18 21:59 08/21/18 09:44 Dextrose (Dextrose 50%) 25 ml Q30M PRN IV Hypoglycemia 08/16/18 16:00 09/15/18 15:59 Dextrose (Dextrose 50%) 50 ml Q30M PRN IV Hypoglycemia 08/16/18 16:00 09/15/18 15:59 Heparin Sodium (Porcine) (Heparin 5000 units/ml) 5,000 units EVERY 12 HOURS SUBQ 08/16/18 21:00 09/15/18 20:59 08/21/18 09:39 Hydralazine HCl (Apresoline) 10 mg EVERY 6 HOURS GT 08/16/18 18:00 09/15/18 17:59 08/21/18 12:00 Insulin Aspart (NovoLOG) Q6HR SUBQ 08/16/18 18:00 09/15/18 17:59 08/21/18 06:54 Lactulose (Cephulac) 20 gm TWICE A DAY GT 08/16/18 18:00 09/15/18 17:59 08/21/18 09:32 Lansoprazole (Prevacid) 30 mg DAILY GT 08/20/18 09:00 09/19/18 08:59 08/21/18 09:30 Lorazepam (Ativan 2mg/ml 1ml) 2 mg Q2H PRN IV For Anxiety 08/16/18 14:00 08/23/18 13:59 Morphine Sulfate (Morphine Sulfate) 4 mg Q4H PRN IVP Severe Pain (Pain Scale 7-10) 08/16/18 14:00 08/23/18 13:59 08/16/18 17:09 Ondansetron HCl (Zofran) 4 mg Q6H PRN IVP Nausea & Vomiting 08/16/18 14:00 09/15/18 13:59 Piperacillin Sod/ Tazobactam Sod 3.375 gm/Dextrose 110 ml @ 27.5 mls/hr EVERY 8 HOURS IVPB 08/17/18 15:30 08/24/18 15:29 08/21/18 14:33 Polyethylene Glycol (Miralax) 17 gm DAILYPRN PRN GT Constipation 08/16/18 14:00 09/15/18 13:59 08/16/18 21:09 Yeny Webb M.D. Aug 21, 2018 14:59
[2018-08-21 16:00] VITALS: BP 129/80
--- NOTE | 2018-08-21 16:00 | NUR ---
NURSE NOTES: Pt agreed to have oral care performed for first time today. Oral care performed and pt tolerated it.
--- NOTE | 2018-08-21 16:48 | NUR ---
*-* INSURANCE *-* CLINICALS HAVE BEEN FAXED TO: [employer] @ [phone] [employer] WILL TRACK THIS ADMISSION NO STILL WORKER HELPER ASSIGNED AT THIS TIME. PLEASE FAX THE REVIEW/CLINICAL P- [phone] F- [phone]
--- NOTE | 2018-08-21 17:11 | NUR ---
[facility] [employer] JUDGEFRUIT CANNER SI: CHEST PAIN . VENTILATOR DEPENDENT VS: BP 136/85, P 62, T 99.4, RR 16, SpO2 100 on Vent FiO2 40 IS: LANSOPRAZOLE 30mg GT COLISTIMETHATE 150mg INH AMIKACIN SULFATE 114ml IV PIPERACILLIN 110ml IVPB NORVASC 5mg GT LACTULOSE 20gm HEPARIN SUBQ APRESOLINE 10mg GT SDU STATUS
--- NOTE | 2018-08-21 19:09 | NUR ---
HAND-OFF: Report given to AUGIE Pelletier. Pt in stable condition.
--- NOTE | 2018-08-21 19:10 | NUR ---
NURSE NOTES: Received bedside report from AUGIE Cyr.Patient stable,open eyes,non-verbal,SR on classroom monitor,no s/s of pain,no respiratory distress noted,Portex 7 AC 16 TV 500 FiO2 40% PEEP 5 tolerated well,GT running with Vital AF 1.2@65 ml/hr, IV asymptomatic,intact on L wrist G22 ,BS active in all quadrants,bed secured,call light within a reach,will continue to monitor and follow POC.
[2018-08-21 20:00] VITALS: BP 135/77
--- NOTE | 2018-08-21 23:30 | Progress Note ---
DATE: 08/21/2018 SUBJECTIVE: The patient is awake and alert with low grade fever without tachycardia. PHYSICAL EXAMINATION: VITAL SIGNS: Blood pressure 136/85, pulse is 68, respirations were 16, and temperature was 99.4. HEENT: Eyes were normal. ENT, mucous membranes were moist and intact. NECK: Supple with no JVD without lymph nodes. Tracheostomy site is clean. LUNGS: Clear without rhonchi, rales, or wheezing in the upper lobes, but with bilateral rhonchi in both lower lobes. HEART: Normal sounds with regular beats. ABDOMEN: Soft and nontender with normal bowel sounds. Gastrostomy site is clean. EXTREMITIES: Warm without cyanosis, clubbing, or edema. LABORATORY AND DIAGNOSTIC DATA: His hemoglobin is 11.8, hematocrit 35.2 with MCV of 94, WBC of 12.6, and platelets is 376,000. His BUN and creatinine are 23 and 0.6 respectively. Sodium is 141, potassium 3.6, chloride 103, and CO2 is 28. Her last chest x-ray from 2 days ago revealed moderate improvement in the left lower lobe infiltrate. IMPRESSION AND PLAN: The patient clinically is improving on a daily basis. Repeat laboratory tests and chest x-ray will be done in the a.m. Karissa Fox M.D. DR: WALDO JOB#: [id number] CC:
[2018-08-22] VITALS: BP 116/55
[2018-08-22] MEDS: NovoLOG Insulin Flexpen SUBQ SCH ×5 (00:23→23:39)
--- NOTE | 2018-08-22 00:45 | NUR ---
NURSE NOTES: Adm.Hydralizine 0.5 ml IV PRN,BP 184/76,patient stable,sleeping,no c/o pain
[2018-08-22 04:00] VITALS: BP 110/70
[2018-08-22] MEDS: HydrALAZINE 10mg Tab GT SCH ×5 (05:19→23:43)
[2018-08-22] MEDS: Piperacillin/Tazobactam 3.375 GM in D5W 110 ML IVPB SCH ×3 (05:21→21:24)
[2018-08-22 05:49] LABS: BASOPHILS % (AUTO) 1.1 % (0.0-2.0); EOSINOPHILS % (AUTO) 2.2 % (0.0-3.0); HEMATOCRIT 36.3 % (37.0-47.0); HEMOGLOBIN 11.8 G/DL (12.0-16.0); LYMPHOCYTES % (AUTO) 27.5 % (20.0-45.0); MEAN CORPUSCULAR VOLUME 96 FL (80-99); MONOCYTES % (AUTO) 5.4 % (1.0-10.0); NEUTROPHILS % (AUTO) 63.7 % (45.0-75.0); PLATELET COUNT 383 K/UL (150-450); RED BLOOD COUNT 3.77 M/UL (4.20-5.40); WHITE BLOOD COUNT 12.4 K/UL (4.8-10.8)
[2018-08-22 06:19] LABS: ALANINE AMINOTRANSFERASE 50 U/L (12-78); ALBUMIN 3.3 G/DL (3.4-5.0); ALBUMIN/GLOBULIN RATIO 0.7 (1.0-2.7); ALKALINE PHOSPHATASE 78 U/L (46-116); ANION GAP 11 mmol/L (5-15); ASPARTATE AMINO TRANSFERASE 23 U/L (15-37); BILIRUBIN,TOTAL 0.2 MG/DL (0.2-1.0); BLOOD UREA NITROGEN 22 mg/dL (7-18); CARBON DIOXIDE 29 MMOL/L (21-32); CHLORIDE 102 MMOL/L (98-107); CREATININE 0.5 MG/DL (0.55-1.30); POTASSIUM 3.9 MMOL/L (3.5-5.1); SODIUM 142 MMOL/L (136-145)
--- NOTE | 2018-08-22 07:27 | NUR ---
HAND-OFF: Report given to AUGIE Willis.Patient stable.
--- NOTE | 2018-08-22 07:30 | NUR ---
NURSE NOTES: Received report from Aj Fine RN. Patient awake, responsive to verbal and tactile stimuli. Trach to vent with settings of AC 16, TV 500, FiO2 40%, PEEP 5, no s/s of respiratory distress noted. GT feeding of Vital AF 1.2 running @ 65 cc/hr, no residuals noted. HoB elevated. Female external catheter in place and attached to low, continuous suction. Left wrist 22g IV site patent and asymptomatic. Bed locked in lowest position with padded side rails up x 3. All needs attended to. Will continue to monitor.
[2018-08-22 08:00] VITALS: BP 134/87
--- NOTE | 2018-08-22 09:06 | Infectious Diseases Prog Note ---
Assessment/Plan Assessment/Plan Assessment: PNA -08/18 CXR: Interim partial improvement of left basilar infiltrate, over 3 days -CTA chest: No evidence of pulmonary embolism. Bronchiectasis with mild volume loss and consolidation in the left lower lobe, which may suggest atelectasis versus pneumonia. Small layering left pleural effusion. -sp cx MDR ABC (I Ceftazidime; S Amikacin), PsA (arce S) -influenza sc neg -CXR: Opacity in the left lung base which may represent pleural effusion and atelectasis. Pneumonia is not excluded. Low grade fever x1, SP Leukocytosis, mild, persistent -Bcx NTD -u/a neg Lactic acidosis, SP hx of cardiac arrest hx of cerebral hemorrhage c/w aphasia and R hemiplegia chronic trach and peg HLD HTN bed bound SNF resident Plan: -Continue Zosyn # 6/7 for PNA and IV Amikacin and INH colistin #4/7-10 for MDR ABC -08/18 SP IV Vancomycin #2 -08/16 SP Zosyn x1 -f.u cx -Monitor CBC/CMP, temperatures -aspiration precautions -PEG/Trach care -CBC, CMP am Subjective Allergies: Coded Allergies: MILK (Verified Allergy, Unknown, 08/16/18) Subjective Afebrile Objective Vital Signs Last 24 Hour Vital Signs Date Time Temp Pulse Resp B/P (MAP) Pulse Ox O2 Delivery O2 Flow Rate FiO2 08/22/18 08:00 Mechanical Ventilator 08/22/18 08:00 97.7 59 18 134/87 (103) 99 08/22/18 08:00 40 08/22/18 07:23 53 17 40 08/22/18 05:19 110/70 08/22/18 05:19 70 17 40 08/22/18 04:00 Mechanical Ventilator 08/22/18 04:00 40 08/22/18 04:00 98.2 52 16 110/70 (83) 100 08/22/18 03:32 53 08/22/18 03:20 62 16 40 08/22/18 01:22 58 16 40 08/22/18 00:00 40 08/22/18 00:00 96/58 08/22/18 00:00 99.0 55 16 116/55 (75) 98 08/22/18 00:00 Mechanical Ventilator 08/21/18 23:55 62 08/21/18 23:14 69 16 100 Mechanical Ventilator 40 08/21/18 23:04 56 18 40 08/21/18 23:03 56 18 100 Mechanical Ventilator 40 08/21/18 20:00 Mechanical Ventilator 08/21/18 20:00 98.9 63 20 135/77 (96) 100 08/21/18 20:00 40 08/21/18 19:27 66 08/21/18 18:50 66 17 40 08/21/18 17:40 129/80 08/21/18 17:01 64 20 40 08/21/18 16:00 Mechanical Ventilator 08/21/18 16:00 62 08/21/18 16:00 99.2 61 16 129/80 (96) 100 08/21/18 16:00 40 08/21/18 15:00 63 18 40 08/21/18 12:31 68 16 40 08/21/18 12:00 99.4 66 16 136/85 (102) 99 08/21/18 12:00 40 08/21/18 12:00 67 08/21/18 12:00 136/85 08/21/18 12:00 Mechanical Ventilator 08/21/18 11:00 75 16 40 08/21/18 09:54 67 16 99 Mechanical Ventilator 40 08/21/18 09:44 75 16 98 Mechanical Ventilator 40 08/21/18 09:30 73 156/89 Height (Feet): 5 Height (Inches): 4.00 Weight (Pounds): 187 Laboratory Tests Test 08/22/18 03:51 White Blood Count 12.4 K/UL (4.8-10.8) H Red Blood Count 3.77 M/UL (4.20-5.40) L Hemoglobin 11.8 G/DL (12.0-16.0) L Hematocrit 36.3 % (37.0-47.0) L Mean Corpuscular Volume 96 FL (80-99) Mean Corpuscular Hemoglobin 31.2 PG (27.0-31.0) H Mean Corpuscular Hemoglobin Concent 32.4 G/DL (32.0-36.0) Red Cell Distribution Width 12.0 % (11.6-14.8) Platelet Count 383 K/UL (150-450) Mean Platelet Volume 6.5 FL (6.5-10.1) Neutrophils (%) (Auto) 63.7 % (45.0-75.0) Lymphocytes (%) (Auto) 27.5 % (20.0-45.0) Monocytes (%) (Auto) 5.4 % (1.0-10.0) Eosinophils (%) (Auto) 2.2 % (0.0-3.0) Basophils (%) (Auto) 1.1 % (0.0-2.0) Sodium Level 142 MMOL/L (136-145) Potassium Level 3.9 MMOL/L (3.5-5.1) Chloride Level 102 MMOL/L (98-107) Carbon Dioxide Level 29 MMOL/L (21-32) Anion Gap 11 mmol/L (5-15) Blood Urea Nitrogen 22 mg/dL (7-18) H Creatinine 0.5 MG/DL (0.55-1.30) L Estimat Glomerular Filtration Rate > 60 mL/min (>60) Glucose Level 107 MG/DL (74-106) H Calcium Level 10.0 MG/DL (8.5-10.1) Total Bilirubin 0.2 MG/DL (0.2-1.0) Aspartate Amino Transf (AST/SGOT) 23 U/L (15-37) Alanine Aminotransferase (ALT/SGPT) 50 U/L (12-78) Alkaline Phosphatase 78 U/L (46-116) Total Protein 8.2 G/DL (6.4-8.2) Albumin 3.3 G/DL (3.4-5.0) L Globulin 4.9 g/dL Albumin/Globulin Ratio 0.7 (1.0-2.7) L Current Medications Medications (Trade) Dose Ordered Sig/Marzena Route PRN Reason Start Time Stop Time Status Last Admin Dose Admin Acetaminophen (Tylenol) 650 mg Q4H PRN GT FEVER 08/16/18 14:00 09/15/18 13:59 08/20/18 00:07 Amikacin Protocol (Amikacin pharmacy to dose) 1 ea DAILY PRN MISC Per rx protocol 08/19/18 12:45 09/18/18 12:44 Amikacin Sulfate 1000 mg/Sodium Chloride 114 ml @ 114 mls/hr Q24H IV 08/19/18 14:00 08/26/18 13:59 08/21/18 13:29 Amlodipine Besylate (Norvasc) 5 mg DAILY GT 08/17/18 09:00 09/16/18 08:59 08/21/18 09:30 Colistimethate Sodium (Colistin *inhalation use only*) 150 mg Q12HR@10,22 INH 08/19/18 22:00 08/26/18 21:59 08/21/18 23:03 Dextrose (Dextrose 50%) 25 ml Q30M PRN IV Hypoglycemia 08/16/18 16:00 09/15/18 15:59 Dextrose (Dextrose 50%) 50 ml Q30M PRN IV Hypoglycemia 08/16/18 16:00 09/15/18 15:59 Heparin Sodium (Porcine) (Heparin 5000 units/ml) 5,000 units EVERY 12 HOURS SUBQ 08/16/18 21:00 09/15/18 20:59 08/21/18 21:26 Hydralazine HCl (Apresoline) 10 mg EVERY 6 HOURS GT 08/16/18 18:00 09/15/18 17:59 08/21/18 17:40 Insulin Aspart (NovoLOG) Q6HR SUBQ 08/16/18 18:00 09/15/18 17:59 08/22/18 00:23 Lactulose (Cephulac) 20 gm TWICE A DAY GT 08/16/18 18:00 09/15/18 17:59 08/21/18 17:39 Lansoprazole (Prevacid) 30 mg DAILY GT 08/20/18 09:00 09/19/18 08:59 08/21/18 09:30 Lorazepam (Ativan 2mg/ml 1ml) 2 mg Q2H PRN IV For Anxiety 08/16/18 14:00 08/23/18 13:59 Morphine Sulfate (Morphine Sulfate) 4 mg Q4H PRN IVP Severe Pain (Pain Scale 7-10) 08/16/18 14:00 08/23/18 13:59 08/16/18 17:09 Ondansetron HCl (Zofran) 4 mg Q6H PRN IVP Nausea & Vomiting 08/16/18 14:00 09/15/18 13:59 Piperacillin Sod/ Tazobactam Sod 3.375 gm/Dextrose 110 ml @ 27.5 mls/hr EVERY 8 HOURS IVPB 08/17/18 15:30 08/24/18 15:29 08/22/18 05:21 Polyethylene Glycol (Miralax) 17 gm DAILYPRN PRN GT Constipation 08/16/18 14:00 09/15/18 13:59 08/16/18 21:09 Vinnie Looney MD Aug 22, 2018 09:06
[2018-08-22] MEDS: Heparin 5000 units/ml inj SUBQ SCH ×2 (09:09→20:43)
[2018-08-22] MEDS: Lactulose 20gm/30ml UDC GT SCH ×2 (09:09→17:37)
--- NOTE | 2018-08-22 09:34 | Diagnostic Imaging Report ---
EXAM: XR Chest, 2 Views CLINICAL HISTORY: COPD TECHNIQUE: Frontal and lateral views of the chest. COMPARISON: Chest x-ray, 08/19/18 805 FINDINGS: Lungs: Left lung base opacity may be atelectasis/infiltrate and/or small pleural effusion, slightly worse than prior study. Pleural space: See above. No pneumothorax. Heart: Cardiomegaly. Mediastinum: Unremarkable. Bones/joints: Degenerative changes of the spine. Tubes, lines and devices: Tracheostomy tube. IMPRESSION: Left lung base opacity may be atelectasis/infiltrate and/or small pleural effusion. Slightly worse than prior study.
[2018-08-22] MEDS: Colistin for inhalation INH SCH (10:09)
[2018-08-22 12:00] VITALS: BP 133/66
[2018-08-22] MEDS ORDERED: Albuterol/Ipratropium 3ml neb HHN PRN (13:45)
[2018-08-22] MEDS: Amikacin 1,000 MG in NS 110 ML IV SCH (14:24)
[2018-08-22] MEDS ORDERED: NS 275ml ONE (15:08)
[2018-08-22] MEDS ORDERED: Tubing IV Secondary IV ONE (15:08)
[2018-08-22 16:00] VITALS: BP 135/77
[2018-08-22 20:00] VITALS: BP 137/72
--- NOTE | 2018-08-22 21:15 | NUR ---
NURSE NOTES: Received report from Alba GHOSH, pt. in bed awake, opens eyes spontaneously, pt. has cardiac monitoring on, bed in lowest position and call light within easy reach, bed alarm on, side rails up x's3 and safety brakes engaged, pt. appears to be tolerating current vent settings well- AC 16, TV500, FIo2 at 40% and peep of 5, Vital 1.2 feeding on hold but to start at 2200 at 65cc/hr- no residual noted, pure wick intact and set to suction, pt. appears to be clean and dry- family member at bedside, Left wrist 22G- IV intact and patent, safety measures continued, will continue with plan of care.
--- NOTE | 2018-08-22 21:16 | NUR ---
HAND-OFF: Report given to Link Barboza RN.
--- NOTE | 2018-08-22 23:40 | NUR ---
NURSE NOTES: pts BS 148- pt. refusing medicine-explained risks and benefits 3 X's to pt. - pt. continues to refuse NovoLog.
[2018-08-23] VITALS: BP 115/75
--- NOTE | 2018-08-23 | Progress Note ---
DATE: 08/22/2018 SUBJECTIVE: The patient is awake and alert with still low-grade fever, but the tachycardia resolved. PHYSICAL EXAMINATION: VITAL SIGNS: Blood pressure is 133/66, pulse is 62, respirations are 18, and temperature is 99.1. HEENT: Eyes were normal. ENT, mucous membranes were moist and intact. NECK: Supple with no JVD without lymph nodes. Tracheostomy site is clean. LUNGS: There are still bilateral rhonchi in both bases. HEART: Normal sounds with regular beats. There is no tachycardia at rest. episode of bradycardia about 50. ABDOMEN: Soft and nontender with normal bowel sounds. Gastrostomy site is clean. EXTREMITIES: Warm without cyanosis, clubbing, or edema. LABORATORY AND DIAGNOSTIC DATA: Hemoglobin 11.8, hematocrit 36.2 with MCV of 96, WBC of 12.4, and platelets is 383,000. WBC has been 12 for the last 5 days since 08/17/2018. It does not seem to be affected by the Zosyn and amikacin. Her BUN and creatinine is 22 and 0.5 respectively. Her sodium is 142, potassium 3.9, chloride 102, and CO2 is 29. Her albumin is 3.3 and total protein is 8.2. Liver function tests are normal. Her chest x-ray from today revealed left-sided opacity, new onset atelectasis and pleural effusion and infiltrate. In addition, the patient has cardiomegaly and degenerative lumbar spine. IMPRESSION AND PLAN: The patient with lower lobe pneumonia, most probably associated with pleural effusion. CT scan of the chest done on 08/16/2018 will be discussed with the patient. Repeat laboratory tests will be done in the a.m. Karissa Fox M.D. DR: WALDO JOB#: [id number] CC:
[2018-08-23] MEDS: Colistin for inhalation INH SCH ×3 (00:17→22:00)
[2018-08-23 04:00] VITALS: BP 149/75
[2018-08-23] MEDS: Piperacillin/Tazobactam 3.375 GM in D5W 110 ML IVPB SCH ×3 (05:23→21:28)
[2018-08-23] MEDS: HydrALAZINE 10mg Tab GT SCH ×4 (05:23→23:55)
[2018-08-23] MEDS: NovoLOG Insulin Flexpen SUBQ SCH ×4 (05:26→23:57)
[2018-08-23 06:05] LABS: BASOPHILS % (AUTO) 0.8 % (0.0-2.0); EOSINOPHILS % (AUTO) 1.9 % (0.0-3.0); HEMATOCRIT 37.5 % (37.0-47.0); HEMOGLOBIN 12.2 G/DL (12.0-16.0); LYMPHOCYTES % (AUTO) 24.5 % (20.0-45.0); MEAN CORPUSCULAR VOLUME 96 FL (80-99); MONOCYTES % (AUTO) 4.4 % (1.0-10.0); NEUTROPHILS % (AUTO) 68.4 % (45.0-75.0); PLATELET COUNT 403 K/UL (150-450); RED BLOOD COUNT 3.91 M/UL (4.20-5.40); RED CELL DISTRIBUTION WIDTH 11.9 % (11.6-14.8); WHITE BLOOD COUNT 14.4 K/UL (4.8-10.8)
[2018-08-23 06:34] LABS: ANION GAP 9 mmol/L (5-15); BLOOD UREA NITROGEN 22 mg/dL (7-18); CALCIUM 9.7 MG/DL (8.5-10.1); CARBON DIOXIDE 30 MMOL/L (21-32); CHLORIDE 103 MMOL/L (98-107); CREATININE 0.6 MG/DL (0.55-1.30); POTASSIUM 3.9 MMOL/L (3.5-5.1); SODIUM 142 MMOL/L (136-145)
--- NOTE | 2018-08-23 07:21 | NUR ---
RESPIRATORY NOTE: Received pt on ordered vent settings. Pt tracheostomy tube is patent and secured. No resp distress noted. Suctioned pt prn. Vent alarms are on and audible. Vent is plugged into red outlet. Will monitor pt progress.
--- NOTE | 2018-08-23 07:48 | NUR ---
HAND-OFF: Report given to Kylie Garcia/ Rian GARCIA, pt. remains stable and no signs of distress. noted.
--- NOTE | 2018-08-23 07:55 | NUR ---
NURSE NOTES: Patient received from Tj GHOSH. Patient on vent with no signs of distress. Patient was awake and responds to voice. Bed at its lowest position and call light in reach. Will continue to monitor
[2018-08-23 08:00] VITALS: BP 147/72
[2018-08-23] MEDS: Lactulose 20gm/30ml UDC GT SCH ×2 (09:36→18:00)
[2018-08-23] MEDS: Heparin 5000 units/ml inj SUBQ SCH ×2 (09:40→21:32)
[2018-08-23 12:00] VITALS: BP 159/70
--- NOTE | 2018-08-23 13:04 | NUR ---
HAND-OFF: Report given to Shante Pope RN.
--- NOTE | 2018-08-23 13:05 | NUR ---
NURSE NOTES: Received report from AUGIE Espinal. Pt is in stable condition awake in bed with no cardiopulmonary distress noted. Pt is trach to vent Portex 7 AC 16 TV 500 FiO2 40% Peep 5. GT noted running Vital AF 1.2 at 65cc/hr. No residuals noted at this time and GT flushed with 60cc H20. Pt has a purewick draining yellow urine. BM noted in william pad, will clean pt. Pt has a 22g L wrist IV. SCDs on. Bed in lowest position and side rails up x 3. Call light within reach. will continue to monitor pt.
--- NOTE | 2018-08-23 13:45 | Pulmonolgy Critical Care Note ---
Critical Care - Asmt/Plan Problems: (1) Acute on chronic respiratory failure (2) Nosocomial pneumonia (3) Cardiac arrest (4) Feeding by G-tube (5) Sepsis Respiratory: monitor respiratory rate, adjust FIO2 Cardiac: start pressors, continue to monitor HR/BP Renal: F/U I&O, check electrolytes Infectious Disease: check cultures, continue antibiotics Gastrointestinal: continue feedings/current rate Endocrine: monitor blood sugar, continue sliding scale insulin Hematologic: monitor H/H, transfuse if hgb<8.5 Neurologic: PRN Morphine, keep patient comfortable Prophylaxis: Protonix Notes Reviewed: linseed oil refiner, cardio Discussed with: nurses, consultants, manager case managementreal estate office manager - Objective Last 24 Hour Vital Signs Date Time Temp Pulse Resp B/P (MAP) Pulse Ox O2 Delivery O2 Flow Rate FiO2 08/23/18 13:10 65 18 40 08/23/18 12:30 159/70 08/23/18 12:00 40 08/23/18 12:00 Mechanical Ventilator 08/23/18 12:00 99.3 60 20 159/70 (99) 100 08/23/18 10:31 64 18 40 08/23/18 10:27 62 16 99 Mechanical Ventilator 40 08/23/18 10:27 Mechanical Ventilator 40 08/23/18 09:37 66 147/72 08/23/18 09:11 66 20 40 08/23/18 08:00 66 08/23/18 08:00 98.1 66 20 147/72 (97) 100 08/23/18 08:00 40 08/23/18 08:00 Mechanical Ventilator 08/23/18 07:21 63 20 40 08/23/18 05:23 149/75 08/23/18 04:58 60 19 40 08/23/18 04:00 98.8 70 17 149/75 (99) 99 08/23/18 04:00 63 08/23/18 04:00 40 08/23/18 04:00 Mechanical Ventilator 08/23/18 03:30 65 18 40 08/23/18 01:30 62 18 40 08/23/18 00:00 40 08/23/18 00:00 Mechanical Ventilator 08/23/18 00:00 97.5 59 16 115/75 (88) 96 08/23/18 00:00 69 08/22/18 23:43 115/75 08/22/18 23:30 66 17 40 08/22/18 23:00 62 16 100 Mechanical Ventilator 40 08/22/18 22:50 60 16 99 Mechanical Ventilator 40 08/22/18 21:30 65 17 40 08/22/18 20:00 97.5 65 17 137/72 (93) 100 08/22/18 20:00 40 08/22/18 20:00 Mechanical Ventilator 08/22/18 19:33 61 08/22/18 19:21 67 17 40 08/22/18 17:37 136/74 08/22/18 17:15 67 18 40 08/22/18 16:00 98.1 57 16 135/77 (96) 100 08/22/18 16:00 40 08/22/18 16:00 Mechanical Ventilator 08/22/18 15:26 69 08/22/18 15:04 64 18 40 Status: awake Condition: critical Neck: full ROM Lungs: clear Abdomen: soft, non-tender Accucheck: 133 Critical Care - Subjective ROS Limited/Unobtainable: No Condition: critical EKG Rhythm: Sinus Rhythm FI02: 40 Vent Support Breath Rate: 16 Vent Support Mode: AC Vent Tidal Volume: 500 Sputum Amount: Small PEEP: 5.0 PIP: 32 Tube Feeding Amount: 65 I&O: Intake and Output 08/22/18 08/23/18 19:00 07:00 Intake Total 1149.0 ml 730.0 ml Output Total 600 ml 300 ml Balance 549.0 ml 430.0 ml Intake Free Water 100 ml IV Total 334.0 ml 110.0 ml Tube Feeding 715 ml 520 ml Other 100 ml Output Urine Total 600 ml 300 ml Labs: Laboratory Tests Test 08/23/18 03:55 White Blood Count 14.4 K/UL (4.8-10.8) H Red Blood Count 3.91 M/UL (4.20-5.40) L Hemoglobin 12.2 G/DL (12.0-16.0) Hematocrit 37.5 % (37.0-47.0) Mean Corpuscular Volume 96 FL (80-99) Mean Corpuscular Hemoglobin 31.1 PG (27.0-31.0) H Mean Corpuscular Hemoglobin Concent 32.4 G/DL (32.0-36.0) Red Cell Distribution Width 11.9 % (11.6-14.8) Platelet Count 403 K/UL (150-450) Mean Platelet Volume 6.4 FL (6.5-10.1) L Neutrophils (%) (Auto) 68.4 % (45.0-75.0) Lymphocytes (%) (Auto) 24.5 % (20.0-45.0) Monocytes (%) (Auto) 4.4 % (1.0-10.0) Eosinophils (%) (Auto) 1.9 % (0.0-3.0) Basophils (%) (Auto) 0.8 % (0.0-2.0) Sodium Level 142 MMOL/L (136-145) Potassium Level 3.9 MMOL/L (3.5-5.1) Chloride Level 103 MMOL/L (98-107) Carbon Dioxide Level 30 MMOL/L (21-32) Anion Gap 9 mmol/L (5-15) Blood Urea Nitrogen 22 mg/dL (7-18) H Creatinine 0.6 MG/DL (0.55-1.30) Estimat Glomerular Filtration Rate > 60 mL/min (>60) Glucose Level 135 MG/DL (74-106) H Calcium Level 9.7 MG/DL (8.5-10.1) Curtis Mcgovern MD Aug 23, 2018 13:45
--- NOTE | 2018-08-23 13:46 | Pulmonolgy Critical Care Note ---
Critical Care - Asmt/Plan Problems: (1) Acute on chronic respiratory failure (2) Nosocomial pneumonia (3) Cardiac arrest (4) Feeding by G-tube (5) Sepsis Respiratory: monitor respiratory rate, adjust FIO2, CXR Cardiac: continue to monitor HR/BP Renal: F/U I&O, check electrolytes Infectious Disease: check cultures Gastrointestinal: continue feedings/current rate Endocrine: monitor blood sugar, check TSH Disposition: keep in ICU Notes Reviewed: renal Discussed with: nurses, consultants, case planner, family member Critical Care - Objective Last 24 Hour Vital Signs Date Time Temp Pulse Resp B/P (MAP) Pulse Ox O2 Delivery O2 Flow Rate FiO2 08/23/18 13:10 65 18 40 08/23/18 12:30 159/70 08/23/18 12:00 40 08/23/18 12:00 Mechanical Ventilator 08/23/18 12:00 99.3 60 20 159/70 (99) 100 08/23/18 10:31 64 18 40 08/23/18 10:27 62 16 99 Mechanical Ventilator 40 08/23/18 10:27 Mechanical Ventilator 40 08/23/18 09:37 66 147/72 08/23/18 09:11 66 20 40 08/23/18 08:00 66 08/23/18 08:00 98.1 66 20 147/72 (97) 100 08/23/18 08:00 40 08/23/18 08:00 Mechanical Ventilator 08/23/18 07:21 63 20 40 08/23/18 05:23 149/75 08/23/18 04:58 60 19 40 08/23/18 04:00 98.8 70 17 149/75 (99) 99 08/23/18 04:00 63 08/23/18 04:00 40 08/23/18 04:00 Mechanical Ventilator 08/23/18 03:30 65 18 40 08/23/18 01:30 62 18 40 08/23/18 00:00 40 08/23/18 00:00 Mechanical Ventilator 08/23/18 00:00 97.5 59 16 115/75 (88) 96 08/23/18 00:00 69 08/22/18 23:43 115/75 08/22/18 23:30 66 17 40 08/22/18 23:00 62 16 100 Mechanical Ventilator 40 08/22/18 22:50 60 16 99 Mechanical Ventilator 40 08/22/18 21:30 65 17 40 08/22/18 20:00 97.5 65 17 137/72 (93) 100 08/22/18 20:00 40 08/22/18 20:00 Mechanical Ventilator 08/22/18 19:33 61 08/22/18 19:21 67 17 40 08/22/18 17:37 136/74 08/22/18 17:15 67 18 40 08/22/18 16:00 98.1 57 16 135/77 (96) 100 08/22/18 16:00 40 08/22/18 16:00 Mechanical Ventilator 08/22/18 15:26 69 08/22/18 15:04 64 18 40 Status: awake Condition: critical, improving Lungs: rales, rhonchi Heart: HR/BP stable, regular Abdomen: soft, non-tender Extremities: no C/C/E Accucheck: 133 Critical Care - Subjective ROS Limited/Unobtainable: Yes Interval Events: late note for 08/22 FI02: 40 Vent Support Breath Rate: 16 Vent Support Mode: AC Vent Tidal Volume: 500 Sputum Amount: Small PEEP: 5.0 PIP: 32 Tube Feeding Amount: 65 I&O: Intake and Output 08/22/18 08/23/18 19:00 07:00 Intake Total 1149.0 ml 730.0 ml Output Total 600 ml 300 ml Balance 549.0 ml 430.0 ml Intake Free Water 100 ml IV Total 334.0 ml 110.0 ml Tube Feeding 715 ml 520 ml Other 100 ml Output Urine Total 600 ml 300 ml Curtis Mcgovern MD Aug 23, 2018 13:46
[2018-08-23] MEDS: Amikacin 1,000 MG in NS 110 ML IV SCH (14:18)
--- NOTE | 2018-08-23 14:56 | NUR ---
NURSE NOTES: pt refused oral care at this time. Explained importance of oral care in preventing ventilator associated pneumonia. Pt still reufsed. Will try again later.
--- NOTE | 2018-08-23 15:10 | NUR ---
CASE MANAGEMENT: REVIEW 08/23/2018 SI:CP. T 99.3 HR 60 RR 20 B/P 159/70 SATS 100% ON MECH VENT FiO2 40 WBC 14.4 BUN 22 GLU 135 IS:HYDRALAZINE GT Q6H ZOSYN IV Q8H CEPHULAC GT BID NORVASC GT QD PREVACID GT QD AMIKACIN IV Q24H INSULIN ASPART SUBQ Q6H STEP DOWN UNIT PLAN OF CARE: TRACH CARE
[2018-08-23 16:00] VITALS: BP 105/63
[2018-08-23] MEDS ORDERED: Gentamicin 0.3% Opth Soln 5ml LEFT EYE SCH (18:00)
[2018-08-23] MEDS: Gentamicin 0.3% Opth Soln 5ml LEFT EYE SCH (18:19)
--- NOTE | 2018-08-23 19:17 | NUR ---
HAND-OFF: Report given to AUGIE Spencer. Pt in stable condition.
--- NOTE | 2018-08-23 19:34 | NUR ---
HAND-OFF: Report eceived from Shante charge nurse, Change of assignment and report given to Liliana GHOSH.
--- NOTE | 2018-08-23 19:35 | NUR ---
NURSE NOTES: Report received from AUGIE Spencer. Pt A/Ox1. bus driver/monitor shows SR. Pt has trach in place, ventilator dependent, portex 7. Ventilator settings: AC16, VT50, PEEP: 5, FiO2: 40%. Tolerating settings well. Showing no signs of distress. Pt has a GT in place with Vital AF 1.2 running @ 65/hr x 20 hrs. Feeding to resume at 2200. Purewick present and suctioning well. Accuchecks Q6h. Skin intact. Pt has a RH22g, patent and asymptomatic. Bed in lowest position, bed alarms placed. Call light within reach. Will continue to monitor and with patients plan of care.
[2018-08-23 20:00] VITALS: BP 134/89
--- NOTE | 2018-08-23 21:38 | NUR ---
Quinn (son) [phone] provided his number in case other brothers are unable to be contacted.
[2018-08-24] VITALS: BP 144/72
[2018-08-24 04:00] VITALS: BP 133/80
[2018-08-24] MEDS: Piperacillin/Tazobactam 3.375 GM in D5W 110 ML IVPB SCH ×3 (05:26→21:23)
[2018-08-24] MEDS: HydrALAZINE 10mg Tab GT SCH ×3 (05:26→18:00)
[2018-08-24] MEDS: NovoLOG Insulin Flexpen SUBQ SCH ×3 (05:27→18:00)
--- NOTE | 2018-08-24 07:28 | NUR ---
NURSE NOTES: Received pt from AUGIE Ford in stable condition with no cardiopulmonary distress. Pt is AAOx3 laying calmly in bed. Pt is trach to vent Portex 7 AC 16 TV 500 fIo2 40% Peep 5. GT noted running Vital 1.2 @ 65 cc/hr. Pure wick noted draining yellow urine. Skin is itnact. Pt has a R hand 22g IV and L hand 24g IV. SCDs on. Bed in lowest position & side rails up x 2, bed alarm on. Call light within reach. Will continue to monitor pt.
--- NOTE | 2018-08-24 08:00 | NUR ---
pt refused oral care. Explained importance of oral care in ventilator associated pneumonia prevention. pt still reused. will try again later.
[2018-08-24 08:01] VITALS: BP 112/68
[2018-08-24] MEDS: Gentamicin 0.3% Opth Soln 5ml LEFT EYE SCH ×3 (08:04→18:48)
[2018-08-24] MEDS: Heparin 5000 units/ml inj SUBQ SCH ×2 (08:10→21:25)
[2018-08-24] MEDS: Lactulose 20gm/30ml UDC GT SCH ×2 (08:11→18:33)
[2018-08-24] MEDS: Colistin for inhalation INH SCH ×2 (09:45→22:00)
--- NOTE | 2018-08-24 10:53 | Pulmonolgy Critical Care Note ---
Critical Care - Asmt/Plan Problems: (1) Acute on chronic respiratory failure (2) Nosocomial pneumonia (3) Cardiac arrest (4) Feeding by G-tube (5) Sepsis Respiratory: monitor respiratory rate, adjust FIO2, CXR Cardiac: continue to monitor HR/BP Renal: F/U I&O, keep IV fluid, check electrolytes Infectious Disease: check cultures Gastrointestinal: continue feedings/current rate Endocrine: monitor blood sugar, check HgA1C Hematologic: monitor H/H, transfuse if hgb<8.5 Neurologic: PRN Morphine, keep patient comfortable Prophylaxis: Heparin Notes Reviewed: admitting representative, renal Discussed with: consultants, rn case manager hospiceaerospace project manager - Objective Last 24 Hour Vital Signs Date Time Temp Pulse Resp B/P (MAP) Pulse Ox O2 Delivery O2 Flow Rate FiO2 08/24/18 10:00 60 16 100 Mechanical Ventilator 40 08/24/18 09:44 58 16 99 Mechanical Ventilator 40 08/24/18 09:20 58 16 40 08/24/18 08:10 52 112/68 08/24/18 08:01 98.2 52 16 112/68 (83) 100 08/24/18 08:00 40 08/24/18 08:00 Mechanical Ventilator 08/24/18 07:17 60 16 40 08/24/18 05:26 133/80 08/24/18 05:07 56 16 40 08/24/18 04:00 98.2 60 18 133/80 (97) 99 08/24/18 04:00 Mechanical Ventilator 08/24/18 04:00 40 08/24/18 04:00 53 08/24/18 03:17 58 16 40 08/24/18 01:19 53 16 40 08/24/18 00:00 54 08/24/18 00:00 97.9 50 16 144/72 (96) 100 08/24/18 00:00 Mechanical Ventilator 08/23/18 23:55 145/88 08/23/18 22:36 57 16 40 08/23/18 22:08 52 16 100 Mechanical Ventilator 40 08/23/18 22:00 65 16 100 Mechanical Ventilator 40 08/23/18 20:41 53 16 40 08/23/18 20:00 55 08/23/18 20:00 Mechanical Ventilator 08/23/18 20:00 97.5 62 17 134/89 (104) 99 08/23/18 20:00 40 08/23/18 19:16 58 16 40 08/23/18 18:03 131/87 08/23/18 16:32 59 18 40 08/23/18 16:00 51 08/23/18 16:00 40 08/23/18 16:00 Mechanical Ventilator 08/23/18 16:00 98.2 90 18 105/63 (77) 98 08/23/18 15:11 67 20 40 08/23/18 13:10 65 18 40 08/23/18 12:30 159/70 08/23/18 12:00 40 08/23/18 12:00 Mechanical Ventilator 08/23/18 12:00 99.3 60 20 159/70 (99) 100 08/23/18 11:33 58 Status: awake Condition: critical HEENT: atraumatic Lungs: clear Heart: HR/BP stable, HR/BP unstable Abdomen: soft, non-tender, feeding tube Decubiti: location Accucheck: 129 Critical Care - Subjective ROS Limited/Unobtainable: No Condition: critical EKG Rhythm: Sinus Rhythm FI02: 40 Vent Support Breath Rate: 16 Vent Support Mode: AC Vent Tidal Volume: 500 Sputum Amount: Small PEEP: 5.0 PIP: 33 Tube Feeding Amount: 65 I&O: Intake and Output 08/23/18 08/24/18 19:00 07:00 Intake Total 669.0 ml 695.0 ml Output Total 400 ml 700 ml Balance 269.0 ml -5.0 ml Intake Free Water 120 ml IV Total 224.0 ml 110.0 ml Tube Feeding 325 ml 585 ml Output Urine Total 400 ml 700 ml # Voids 1 # Bowel Movements 3 Labs: No change Curtis Mcgovern MD Aug 24, 2018 10:53
--- NOTE | 2018-08-24 10:54 | NUR ---
*-* INSURANCE *-* UPDATED CLINICALS HAVE BEEN FAXED TO: [facility] @ [phone] [facility] WILL TRACK THIS ADMISSION NO TRANSITIONS MANAGER ASSIGNED AT THIS TIME. PLEASE FAX THE REVIEW/CLINICAL P- [phone] f- [phone]
--- NOTE | 2018-08-24 11:00 | Progress Note ---
DATE: 08/23/2018 SUBJECTIVE: The patient is awake, alert, afebrile, and hemodynamically stable. PHYSICAL EXAMINATION: VITAL SIGNS: Blood pressure 134/89, pulse is 62, respirations 17, and temperature 97.5. HEENT: Eyes were normal. ENT, mucous membranes were moist and intact. NECK: Supple with no JVD without lymph nodes. Tracheostomy site is clean. LUNGS: Clear without rhonchi, rales, or wheezing. Secretions are small, thin, and gao. HEART: Normal sounds with regular beats. There is no S3, S4, or pericardial rub. ABDOMEN: Soft and nontender with normal bowel sounds. Gastrostomy site is clean. EXTREMITIES: Warm without cyanosis, clubbing, or edema. LABORATORY DATA: Hemoglobin is 11.2, hematocrit 37.5 with MCV of 95, WBC of 14.4, and platelets are 403,000. BUN and creatinine is 22 and 0.6 respectively. Her sodium is 142, potassium 3.9, chloride 103, and CO2 30. Her calcium is 9.7. IMPRESSION: The patient is afebrile, but her leukocytosis increased. She was discharged yesterday. Chest x-ray from yesterday revealed left lower lobe and atelectasis. The patient has not been seen specialist since yesterday. PLAN: The patient continued on current IV antibiotics. Repeat laboratory and chest x-ray will be done in the a.m. will be reviewed. Karissa Fox M.D. DR: MIREYA JOB#: [id number] CC:
--- NOTE | 2018-08-24 11:32 | NUR ---
RD ASSESSMENT & RECOMMENDATIONS SEE CARE ACTIVITY FOR COMPLETE ASSESSMENT DAILY ESTIMATED NEEDS: Needs based on Critical care, sepsis 61kg adj 22-30 kcals/kg 9715-0699 total kcals 1.2-2 g protein/kg 73-122 g total protein 25-30 mL/kg 0517-7154 total fluid mLs NUTRITION DIAGNOSIS: Swallowing difficulty r/t respiratory status as evidenced by pt is vent dep via trach w/ PEG. CURRENT TF:Vital AF 1.2 @65ml/hr x20 hrs ENTERAL NUTRITION RECOMMENDATIONS: VITAL AF 1.2 @65ml/hr x20 hrs to provide 1300ml, 1560 kcal, 98g pro, 1054ml free H2o - Continue w/ current TF - Flush per MD/ HOB over 30 degrees ADDITIONAL RECOMMENDATIONS: 1) MONITOR FOR SIGNS OF INTOLERANCE TO FORMULA PT PREVIOUSLY ON SOY BASED FORMULA 2) Monitor lytes, BG daily 3) RE-calibrate bed scale as able: Pt is 178# from SNF (per EMR:190#)
[2018-08-24 12:00] VITALS: BP 136/81
[2018-08-24] MEDS: Acetaminophen 650mg/20.3ml GT PRN (12:21)
[2018-08-24] MEDS: Amikacin 1,000 MG in NS 110 ML IV SCH (13:01)
--- NOTE | 2018-08-24 14:38 | NUR ---
KNIT TUBING DYERCLIENT RELATIONS REPRESENTATIVE SI:CHEST PAIN . VENTILATOR DEPENDENT VS: BP 144/72, P 50, T 97.9, RR 26, SpO2 99 VENT FiO2 40 CXR IMPRESSION:Left lung base opacity may be atelectasis/infiltrate and/or small pleural effusion. Slightly worse than prior study. IS:LANSOPRAZOLE 30mg COLISTIN 150mg INH PIPERACILLIN 110mL IVPB NORVASC 5mg HEPARIN SUBQ APRESOLINE 10mg SDU STATUS
--- NOTE | 2018-08-24 14:40 | Infectious Diseases Prog Note ---
Assessment/Plan Assessment/Plan Assessment: PNA -08/18 CXR: Interim partial improvement of left basilar infiltrate, over 3 days -CTA chest: No evidence of pulmonary embolism. Bronchiectasis with mild volume loss and consolidation in the left lower lobe, which may suggest atelectasis versus pneumonia. Small layering left pleural effusion. -sp cx MDR ABC (I Ceftazidime; S Amikacin), PsA (acre S) -influenza sc neg -CXR: Opacity in the left lung base which may represent pleural effusion and atelectasis. Pneumonia is not excluded. Low grade fever x1, SP Leukocytosis, increased -Bcx NTD -u/a neg Lactic acidosis, SP hx of cardiac arrest hx of cerebral hemorrhage c/w aphasia and R hemiplegia chronic trach and peg HLD HTN bed bound SNF resident Plan: -D/c Zosyn # 8/7 for PNA -Continue IV Amikacin and INH colistin #6/7-10 for MDR ABC and add Tigecycline given leukocytosis (double coverage for MDR ABC) -08/18 SP IV Vancomycin #2 -08/16 SP Zosyn x1 -Bcx x2, u/a w/ reflex -f.u cx -Monitor CBC/CMP, temperatures -aspiration precautions -PEG/Trach care -CBC, CMP am -cdiff if diarrhea Subjective Allergies: Coded Allergies: MILK (Verified Allergy, Unknown, 08/16/18) Subjective afebrile >72hrs wbc increased Objective Vital Signs Last 24 Hour Vital Signs Date Time Temp Pulse Resp B/P (MAP) Pulse Ox O2 Delivery O2 Flow Rate FiO2 08/24/18 13:27 58 16 40 08/24/18 12:21 136/81 08/24/18 12:00 55 08/24/18 12:00 Mechanical Ventilator 08/24/18 12:00 40 08/24/18 12:00 98.0 60 26 136/81 (99) 99 08/24/18 10:58 55 16 40 08/24/18 10:00 60 16 100 Mechanical Ventilator 40 08/24/18 09:44 58 16 99 Mechanical Ventilator 40 08/24/18 09:20 58 16 40 08/24/18 08:10 52 112/68 08/24/18 08:01 98.2 52 16 112/68 (83) 100 08/24/18 08:00 40 08/24/18 08:00 62 08/24/18 08:00 Mechanical Ventilator 08/24/18 07:17 60 16 40 08/24/18 05:26 133/80 08/24/18 05:07 56 16 40 08/24/18 04:00 98.2 60 18 133/80 (97) 99 08/24/18 04:00 Mechanical Ventilator 08/24/18 04:00 40 08/24/18 04:00 53 08/24/18 03:17 58 16 40 08/24/18 01:19 53 16 40 08/24/18 00:00 54 08/24/18 00:00 97.9 50 16 144/72 (96) 100 08/24/18 00:00 Mechanical Ventilator 08/23/18 23:55 145/88 08/23/18 22:36 57 16 40 08/23/18 22:08 52 16 100 Mechanical Ventilator 40 08/23/18 22:00 65 16 100 Mechanical Ventilator 40 08/23/18 20:41 53 16 40 08/23/18 20:00 55 08/23/18 20:00 Mechanical Ventilator 08/23/18 20:00 97.5 62 17 134/89 (104) 99 08/23/18 20:00 40 08/23/18 19:16 58 16 40 08/23/18 18:03 131/87 08/23/18 16:32 59 18 40 08/23/18 16:00 51 08/23/18 16:00 40 08/23/18 16:00 Mechanical Ventilator 08/23/18 16:00 98.2 90 18 105/63 (77) 98 08/23/18 15:11 67 20 40 Height (Feet): 5 Height (Inches): 4.00 Weight (Pounds): 187 Objective HEENT: Pupils were round, equal, and reactive to light. Sclerae was white. . ENT, mucous membranes were not dehydrated. NECK: Supple. There was no goiter. No mass. No lymphadenopathy. There was no JVD. No bruits. LUNGS: Clear with decreased breath sounds in both bases, more on the left than on the right. HEART: There was normal S1 and normal S2. There was no murmur. No arrhythmia. No S3. No S4. No pericardial rub. ABDOMEN: Soft. Nontender without organomegaly. There were no masses palpable. Normal bowel sounds without bruits. There was no guarding. No rebound tenderness. No ascites. EXTREMITIES: No cyanosis, no clubbing, and no edema. Extremities were warm. Laboratory Tests Test 08/24/18 13:15 Amikacin Level Trough 32.6 ug/mL (4.0-8.0) H Current Medications Medications (Trade) Dose Ordered Sig/Marzena Route PRN Reason Start Time Stop Time Status Last Admin Dose Admin Acetaminophen (Tylenol) 650 mg Q4H PRN GT FEVER 08/16/18 14:00 09/15/18 13:59 08/24/18 12:21 Albuterol/ Ipratropium (Albuterol/ Ipratropium) 3 ml Q4HRT PRN HHN Shortness of Breath 08/22/18 13:45 08/27/18 13:44 Amikacin Protocol (Amikacin pharmacy to dose) 1 ea DAILY PRN MISC Per rx protocol 08/19/18 12:45 09/18/18 12:44 Amlodipine Besylate (Norvasc) 5 mg DAILY GT 08/17/18 09:00 09/16/18 08:59 08/24/18 08:10 Colistimethate Sodium (Colistin *inhalation use only*) 150 mg Q12HR@10,22 INH 08/19/18 22:00 08/26/18 21:59 08/24/18 09:45 Dextrose (Dextrose 50%) 25 ml Q30M PRN IV Hypoglycemia 08/16/18 16:00 09/15/18 15:59 Dextrose (Dextrose 50%) 50 ml Q30M PRN IV Hypoglycemia 08/16/18 16:00 09/15/18 15:59 Gentamicin Sulfate [facility] 1 drop TID LEFT EYE 08/23/18 18:00 09/02/18 13:01 08/24/18 12:26 Heparin Sodium (Porcine) (Heparin 5000 units/ml) 5,000 units EVERY 12 HOURS SUBQ 08/16/18 21:00 09/15/18 20:59 08/24/18 08:10 Hydralazine HCl (Apresoline) 10 mg EVERY 6 HOURS GT 08/16/18 18:00 09/15/18 17:59 08/24/18 12:21 Insulin Aspart (NovoLOG) Q6HR SUBQ 08/16/18 18:00 09/15/18 17:59 08/24/18 05:27 Lactulose (Cephulac) 20 gm TWICE A DAY GT 08/16/18 18:00 09/15/18 17:59 08/23/18 09:36 Lansoprazole (Prevacid) 30 mg DAILY GT 08/20/18 09:00 09/19/18 08:59 08/24/18 08:04 Ondansetron HCl (Zofran) 4 mg Q6H PRN IVP Nausea & Vomiting 08/16/18 14:00 09/15/18 13:59 Piperacillin Sod/ Tazobactam Sod 3.375 gm/Dextrose 110 ml @ 27.5 mls/hr EVERY 8 HOURS IVPB 08/17/18 15:30 08/24/18 23:59 08/24/18 13:56 Polyethylene Glycol (Miralax) 17 gm DAILYPRN PRN GT Constipation 08/16/18 14:00 09/15/18 13:59 08/16/18 21:09 Yeny Webb M.D. Aug 24, 2018 14:40
--- NOTE | 2018-08-24 14:48 | NUR ---
P.T Note: P.T evaluation completed and treatment initiated. Please refer to P.T evaluation for current functional status.
[2018-08-24 16:00] VITALS: BP 134/76
[2018-08-24 17:08] LABS: APPEARANCE,URINE SLIGHTLY CLOUDY; BILIRUBIN, URINE NEGATIVE (NEGATIVE); GLUCOSE, URINE (UA) NEGATIVE (NEGATIVE); KETONES,URINE NEGATIVE (NEGATIVE); LEUKOCYTE ESTERASE ,URINE 1+ (NEGATIVE); NITRITE,URINE NEGATIVE (NEGATIVE); PH,URINE 7 (4.5-8.0); PROTEIN,URINE 2+ (NEGATIVE); UROBILINOGEN,URINE NORMAL MG/DL (0.0-1.0)
[2018-08-24 17:10] LABS: COLOR,URINE YELLOW
--- NOTE | 2018-08-24 19:46 | NUR ---
HAND-OFF: Report given to AUGIE Bah. Pt in stable condition.
--- NOTE | 2018-08-24 19:47 | NUR ---
NURSE NOTES: Report received from AUGIE Frey. Observed pt lying on the bed. Trach to vent, Portex 7, AC 16, TV 500, FIO2 40%, and PEEP 5. GTube intact and patent, feeing on hold. Will start at 10pm, Vital 1.2 at 65cc/hr. IV on RH 22G. Bed in the lowest position. Side rails up x3. Will continue to monitor.
[2018-08-24 20:00] VITALS: BP 140/75
[2018-08-25] VITALS: BP 142/87
[2018-08-25] MEDS: HydrALAZINE 10mg Tab GT SCH ×4 (00:06→18:42)
[2018-08-25] MEDS: NovoLOG Insulin Flexpen SUBQ SCH ×4 (00:07→18:42)
[2018-08-25 04:00] VITALS: BP 140/75
[2018-08-25 04:49] LABS: BASOPHILS % (AUTO) 0.9 % (0.0-2.0); EOSINOPHILS % (AUTO) 2.3 % (0.0-3.0); HEMATOCRIT 37.5 % (37.0-47.0); HEMOGLOBIN 12.3 G/DL (12.0-16.0); LYMPHOCYTES % (AUTO) 26.4 % (20.0-45.0); MEAN CORPUSCULAR VOLUME 94 FL (80-99); MONOCYTES % (AUTO) 5.5 % (1.0-10.0); NEUTROPHILS % (AUTO) 64.9 % (45.0-75.0); PLATELET COUNT 385 K/UL (150-450); RED BLOOD COUNT 4.01 M/UL (4.20-5.40); RED CELL DISTRIBUTION WIDTH 11.4 % (11.6-14.8); WHITE BLOOD COUNT 12.4 K/UL (4.8-10.8)
[2018-08-25 05:30] LABS: ALANINE AMINOTRANSFERASE 47 U/L (12-78); ALBUMIN 3.2 G/DL (3.4-5.0); ALBUMIN/GLOBULIN RATIO 0.7 (1.0-2.7); ALKALINE PHOSPHATASE 69 U/L (46-116); ANION GAP 11 mmol/L (5-15); ASPARTATE AMINO TRANSFERASE 12 U/L (15-37); BILIRUBIN,TOTAL 0.2 MG/DL (0.2-1.0); BLOOD UREA NITROGEN 20 mg/dL (7-18); CALCIUM 9.6 MG/DL (8.5-10.1); CARBON DIOXIDE 27 MMOL/L (21-32); CHLORIDE 102 MMOL/L (98-107); CREATININE 0.5 MG/DL (0.55-1.30); PHOSPHORUS 4.8 MG/DL (2.5-4.9); POTASSIUM 3.9 MMOL/L (3.5-5.1); SODIUM 140 MMOL/L (136-145)
--- NOTE | 2018-08-25 07:18 | NUR ---
HAND-OFF: Report given to AUGIE Willis. No acute distress noted at this time.
--- NOTE | 2018-08-25 07:19 | NUR ---
NURSE NOTES: Received report from Milton Guillory RN. Patient awake and alert, able to make needs known and follow commands. Trach to vent with settings of AC 16, TV 500, FiO2 40%, PEEP 5, no s/s of respiratory distress noted. GT feeding of Vital AF 1.2 running @ 65 cc/hr, no residuals noted. HoB elevated. Female external catheter in place and attached to low, continuous suction. Right hand 22g IV site patent and asymptomatic. Bed locked in lowest position with padded side rails up x 3. All needs attended to. Call light within reach. Will continue to monitor.
[2018-08-25 08:00] VITALS: BP 130/74
[2018-08-25] MEDS: Lactulose 20gm/30ml UDC GT SCH ×2 (08:47→18:42)
[2018-08-25] MEDS: Gentamicin 0.3% Opth Soln 5ml LEFT EYE SCH ×3 (08:48→18:42)
[2018-08-25] MEDS: Heparin 5000 units/ml inj SUBQ SCH ×2 (08:49→19:57)
--- NOTE | 2018-08-25 08:58 | NUR ---
RADIOLOGY: CXR COMPLETED. [place]
--- NOTE | 2018-08-25 10:18 | Pulmonolgy Critical Care Note ---
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 Discussed with: nurses, consultants, keycase assemblerland development manager - Objective Last 24 Hour Vital Signs Date Time Temp Pulse Resp B/P (MAP) Pulse Ox O2 Delivery O2 Flow Rate FiO2 08/25/18 09:07 58 16 40 08/25/18 08:52 72 130/74 08/25/18 08:00 72 08/25/18 08:00 98.8 59 130/74 (92) 08/25/18 08:00 Mechanical Ventilator 08/25/18 08:00 40 08/25/18 07:18 62 18 40 08/25/18 06:06 155/84 08/25/18 05:06 56 19 40 08/25/18 04:00 Mechanical Ventilator 08/25/18 04:00 64 08/25/18 04:00 98.0 53 140/75 (96) 08/25/18 04:00 40 08/25/18 03:50 58 16 40 08/25/18 01:29 58 16 40 08/25/18 00:06 145/84 08/25/18 00:00 Mechanical Ventilator 08/25/18 00:00 98.2 53 142/87 (105) 08/25/18 00:00 56 08/25/18 00:00 40 08/24/18 22:08 55 16 40 08/24/18 22:08 Mechanical Ventilator 40 08/24/18 22:08 Mechanical Ventilator 40 08/24/18 21:49 54 16 40 08/24/18 20:00 98.0 53 140/75 (96) 08/24/18 20:00 40 08/24/18 20:00 49 08/24/18 20:00 Mechanical Ventilator 08/24/18 19:45 56 16 40 08/24/18 18:00 134/76 08/24/18 17:01 56 16 40 08/24/18 16:00 Mechanical Ventilator 08/24/18 16:00 97.3 50 134/76 (95) 08/24/18 16:00 55 08/24/18 16:00 40 08/24/18 14:49 60 19 40 08/24/18 13:27 58 16 40 08/24/18 12:21 136/81 08/24/18 12:00 55 08/24/18 12:00 Mechanical Ventilator 08/24/18 12:00 40 08/24/18 12:00 98.0 60 26 136/81 (99) 99 08/24/18 10:58 55 16 40 Status: awake Condition: critical Neck: full ROM Lungs: clear Heart: HR/BP stable, HR/BP unstable, regular Abdomen: active bowel sounds, feeding tube Extremities: no C/C/E, edema Decubiti: location Micro: Microbiology Date/Time Source Procedure Growth Status 08/24/18 11:30 Sputum Gram Stain - Final Resulted 08/24/18 11:30 Sputum Sputum Culture Pending Resulted Accucheck: 124 Critical Care - Subjective FI02: 40 Vent Support Breath Rate: 16 Vent Support Mode: AC Vent Tidal Volume: 500 Sputum Amount: Scant PEEP: 5.0 PIP: 29 Tube Feeding Amount: 65 I&O: Intake and Output 08/24/18 08/25/18 19:00 07:00 Intake Total 609.0 ml 790 ml Output Total 400 ml 500 ml Balance 209.0 ml 290 ml Intake Free Water 60 ml 140 ml IV Total 224.0 ml Tube Feeding 325 ml 650 ml Output Urine Total 400 ml 500 ml # Voids 1 Labs: Laboratory Tests Test 08/24/18 13:15 08/24/18 16:30 08/25/18 03:45 Amikacin Level Trough 32.6 ug/mL (4.0-8.0) H Urine Color Yellow Urine Appearance Slightly cloudy Urine pH 7 (4.5-8.0) Urine Specific [place] 1.015 (1.005-1.035) Urine Protein 2+ (NEGATIVE) H Urine Glucose (UA) Negative (NEGATIVE) Urine Ketones Negative (NEGATIVE) Urine Blood Negative (NEGATIVE) Urine Nitrite Negative (NEGATIVE) Urine Bilirubin Negative (NEGATIVE) Urine Urobilinogen Normal MG/DL (0.0-1.0) Urine Leukocyte Esterase 1+ (NEGATIVE) H Urine RBC 0-2 /HPF (0 - 2) Urine WBC 2-4 /HPF (0 - 2) Urine Squamous Epithelial Cells Occasional /LPF Urine Amorphous Sediment Many /LPF (NONE) H Urine Bacteria Few /HPF (NONE) White Blood Count 12.4 K/UL (4.8-10.8) H Red Blood Count 4.01 M/UL (4.20-5.40) L Hemoglobin 12.3 G/DL (12.0-16.0) Hematocrit 37.5 % (37.0-47.0) Mean Corpuscular Volume 94 FL (80-99) Mean Corpuscular Hemoglobin 30.7 PG (27.0-31.0) Mean Corpuscular Hemoglobin Concent 32.8 G/DL (32.0-36.0) Red Cell Distribution Width 11.4 % (11.6-14.8) L Platelet Count 385 K/UL (150-450) Mean Platelet Volume 6.7 FL (6.5-10.1) Neutrophils (%) (Auto) 64.9 % (45.0-75.0) Lymphocytes (%) (Auto) 26.4 % (20.0-45.0) Monocytes (%) (Auto) 5.5 % (1.0-10.0) Eosinophils (%) (Auto) 2.3 % (0.0-3.0) Basophils (%) (Auto) 0.9 % (0.0-2.0) Erythrocyte Sedimentation Rate 58 MM/HR (0-30) H Sodium Level 140 MMOL/L (136-145) Potassium Level 3.9 MMOL/L (3.5-5.1) Chloride Level 102 MMOL/L (98-107) Carbon Dioxide Level 27 MMOL/L (21-32) Anion Gap 11 mmol/L (5-15) Blood Urea Nitrogen 20 mg/dL (7-18) H Creatinine 0.5 MG/DL (0.55-1.30) L Estimat Glomerular Filtration Rate > 60 mL/min (>60) Glucose Level 118 MG/DL (74-106) H Calcium Level 9.6 MG/DL (8.5-10.1) Phosphorus Level 4.8 MG/DL (2.5-4.9) Magnesium Level 2.2 MG/DL (1.8-2.4) Total Bilirubin 0.2 MG/DL (0.2-1.0) Aspartate Amino Transf (AST/SGOT) 12 U/L (15-37) L Alanine Aminotransferase (ALT/SGPT) 47 U/L (12-78) Alkaline Phosphatase 69 U/L (46-116) C-Reactive Protein, Quantitative 1.2 mg/dL (0.00-0.90) H Total Protein 8.0 G/DL (6.4-8.2) Albumin 3.2 G/DL (3.4-5.0) L Globulin 4.8 g/dL Albumin/Globulin Ratio 0.7 (1.0-2.7) L Curtis Mcgovern MD Aug 25, 2018 10:18
--- NOTE | 2018-08-25 11:42 | NUR ---
*-* INSURANCE *-* UPDATED CLINICALS HAVE BEEN FAXED TO: [facility] S/W JASVIR @ [phone] [facility] WILL TRACK THIS ADMISSION NO INDUSTRIAL ENGINEER ASSIGNED AT THIS TIME. PLEASE FAX THE REVIEW/CLINICAL P- [phone] f- [phone]
[2018-08-25 12:00] VITALS: BP 117/53
[2018-08-25] MEDS: Colistin for inhalation INH SCH ×2 (12:59→22:00)
--- NOTE | 2018-08-25 13:51 | Progress Note ---
DATE: 08/24/2018 SUBJECTIVE: The patient is afebrile and hemodynamically stable without tachycardia. PHYSICAL EXAMINATION: VITAL SIGNS: Blood pressure 140/75, pulse is 63, respirations of 16, and temperature 98. HEENT: Eyes were normal. ENT, mucous membranes were moist and intact. NECK: Supple with no JVD without lymph nodes. Tracheostomy site is clean. LUNGS: There is bilateral rhonchi at both upper lobe and lower lobes of moderate intensity. HEART: Normal sounds with regular beats. There is no S3, S4, or pericardial rub. ABDOMEN: Soft and nontender with normal bowel sounds. Gastrostomy site is clean. EXTREMITIES: Warm without cyanosis, clubbing, or edema. LABORATORY AND DIAGNOSTIC DATA: Hemoglobin is , hematocrit 37.5 with MCV of 96, WBC of 14.4, and platelets of 403,000. Her BUN and creatinine is 22 and 0.6 respectively. Her sodium is 142, potassium 3.9, chloride 103, and CO2 is 30. His albumin is 3.3. His globulin is 4.9. His chest x-ray from 2 days ago revealed bilateral infiltrate on the left than on the right. Repeat laboratory tests and chest x-ray will be done in the a.m. Karissa Fox M.D. DR: WALDO JOB#: [id number] CC:
--- NOTE | 2018-08-25 15:57 | Infectious Diseases Prog Note ---
Assessment/Plan Assessment/Plan Assessment: PNA -08/18 CXR: Interim partial improvement of left basilar infiltrate, over 3 days -CTA chest: No evidence of pulmonary embolism. Bronchiectasis with mild volume loss and consolidation in the left lower lobe, which may suggest atelectasis versus pneumonia. Small layering left pleural effusion. -sp cx MDR ABC (I Ceftazidime; S Amikacin), PsA (arce S) -influenza sc neg -CXR: Opacity in the left lung base which may represent pleural effusion and atelectasis. Pneumonia is not excluded. 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 chronic trach and peg HLD HTN bed bound SNF resident Plan: -Continue IV Amikacin and INH colistin #7/-10 for MDR ABC and add Tigecycline given leukocytosis (double coverage for MDR ABC) -08/24 SP Zosyn # 8 -08/18 SP IV Vancomycin #2 -08/16 SP Zosyn x1 -f/u Bcx x2, u/a w/ reflex -f.u cx -Monitor CBC/CMP, temperatures -aspiration precautions -PEG/Trach care -cdiff if diarrhea Subjective Allergies: Coded Allergies: MILK (Verified Allergy, Unknown, 08/16/18) Subjective afebrile wbc improving Objective Vital Signs Last 24 Hour Vital Signs Date Time Temp Pulse Resp B/P (MAP) Pulse Ox O2 Delivery O2 Flow Rate FiO2 08/25/18 13:08 66 16 100 Mechanical Ventilator 40 08/25/18 12:59 60 16 100 Mechanical Ventilator 40 08/25/18 12:53 74 16 40 08/25/18 12:00 59 08/25/18 12:00 117/53 08/25/18 12:00 Mechanical Ventilator 08/25/18 12:00 99.2 61 16 117/53 (74) 100 08/25/18 12:00 40 08/25/18 10:56 57 16 40 08/25/18 09:07 58 16 40 08/25/18 08:52 72 130/74 08/25/18 08:00 72 08/25/18 08:00 98.8 59 16 130/74 (92) 100 08/25/18 08:00 Mechanical Ventilator 08/25/18 08:00 40 08/25/18 07:18 62 18 40 08/25/18 06:06 155/84 08/25/18 05:06 56 19 40 08/25/18 04:00 Mechanical Ventilator 08/25/18 04:00 64 08/25/18 04:00 98.0 53 140/75 (96) 08/25/18 04:00 40 08/25/18 03:50 58 16 40 08/25/18 01:29 58 16 40 08/25/18 00:06 145/84 08/25/18 00:00 Mechanical Ventilator 08/25/18 00:00 98.2 53 142/87 (105) 08/25/18 00:00 56 08/25/18 00:00 40 08/24/18 22:08 55 16 40 08/24/18 22:08 Mechanical Ventilator 40 08/24/18 22:08 Mechanical Ventilator 40 08/24/18 21:49 54 16 40 08/24/18 20:00 98.0 53 140/75 (96) 08/24/18 20:00 40 08/24/18 20:00 49 08/24/18 20:00 Mechanical Ventilator 08/24/18 19:45 56 16 40 08/24/18 18:00 134/76 08/24/18 17:01 56 16 40 08/24/18 16:00 Mechanical Ventilator 08/24/18 16:00 97.3 50 134/76 (95) 08/24/18 16:00 55 08/24/18 16:00 40 Height (Feet): 5 Height (Inches): 4.00 Weight (Pounds): 187 Objective HEENT: Pupils were round, equal, and reactive to light. Sclerae was white. . ENT, mucous membranes were not dehydrated. NECK: Supple. There was no goiter. No mass. No lymphadenopathy. There was no JVD. No bruits. LUNGS: Clear with decreased breath sounds in both bases, more on the left than on the right. HEART: There was normal S1 and normal S2. There was no murmur. No arrhythmia. No S3. No S4. No pericardial rub. ABDOMEN: Soft. Nontender without organomegaly. There were no masses palpable. Normal bowel sounds without bruits. There was no guarding. No rebound tenderness. No ascites. EXTREMITIES: No cyanosis, no clubbing, and no edema. Extremities were warm. Microbiology Date/Time Source Procedure Growth Status 08/24/18 11:30 Sputum Gram Stain - Final Resulted 08/24/18 11:30 Sputum Sputum Culture Pending Resulted Laboratory Tests Test 08/24/18 16:30 08/25/18 03:45 08/25/18 13:15 Urine Color Yellow Urine Appearance Slightly cloudy Urine pH 7 (4.5-8.0) Urine Specific [place] 1.015 (1.005-1.035) Urine Protein 2+ (NEGATIVE) H Urine Glucose (UA) Negative (NEGATIVE) Urine Ketones Negative (NEGATIVE) Urine Blood Negative (NEGATIVE) Urine Nitrite Negative (NEGATIVE) Urine Bilirubin Negative (NEGATIVE) Urine Urobilinogen Normal MG/DL (0.0-1.0) Urine Leukocyte Esterase 1+ (NEGATIVE) H Urine RBC 0-2 /HPF (0 - 2) Urine WBC 2-4 /HPF (0 - 2) Urine Squamous Epithelial Cells Occasional /LPF Urine Amorphous Sediment Many /LPF (NONE) H Urine Bacteria Few /HPF (NONE) White Blood Count 12.4 K/UL (4.8-10.8) H Red Blood Count 4.01 M/UL (4.20-5.40) L Hemoglobin 12.3 G/DL (12.0-16.0) Hematocrit 37.5 % (37.0-47.0) Mean Corpuscular Volume 94 FL (80-99) Mean Corpuscular Hemoglobin 30.7 PG (27.0-31.0) Mean Corpuscular Hemoglobin Concent 32.8 G/DL (32.0-36.0) Red Cell Distribution Width 11.4 % (11.6-14.8) L Platelet Count 385 K/UL (150-450) Mean Platelet Volume 6.7 FL (6.5-10.1) Neutrophils (%) (Auto) 64.9 % (45.0-75.0) Lymphocytes (%) (Auto) 26.4 % (20.0-45.0) Monocytes (%) (Auto) 5.5 % (1.0-10.0) Eosinophils (%) (Auto) 2.3 % (0.0-3.0) Basophils (%) (Auto) 0.9 % (0.0-2.0) Erythrocyte Sedimentation Rate 58 MM/HR (0-30) H Sodium Level 140 MMOL/L (136-145) Potassium Level 3.9 MMOL/L (3.5-5.1) Chloride Level 102 MMOL/L (98-107) Carbon Dioxide Level 27 MMOL/L (21-32) Anion Gap 11 mmol/L (5-15) Blood Urea Nitrogen 20 mg/dL (7-18) H Creatinine 0.5 MG/DL (0.55-1.30) L Estimat Glomerular Filtration Rate > 60 mL/min (>60) Glucose Level 118 MG/DL (74-106) H Calcium Level 9.6 MG/DL (8.5-10.1) Phosphorus Level 4.8 MG/DL (2.5-4.9) Magnesium Level 2.2 MG/DL (1.8-2.4) Total Bilirubin 0.2 MG/DL (0.2-1.0) Aspartate Amino Transf (AST/SGOT) 12 U/L (15-37) L Alanine Aminotransferase (ALT/SGPT) 47 U/L (12-78) Alkaline Phosphatase 69 U/L (46-116) C-Reactive Protein, Quantitative 1.2 mg/dL (0.00-0.90) H Total Protein 8.0 G/DL (6.4-8.2) Albumin 3.2 G/DL (3.4-5.0) L Globulin 4.8 g/dL Albumin/Globulin Ratio 0.7 (1.0-2.7) L Amikacin Level Trough < 2.5 ug/mL (4.0-8.0) L Current Medications Medications (Trade) Dose Ordered Sig/Marzena Route PRN Reason Start Time Stop Time Status Last Admin Dose Admin Acetaminophen (Tylenol) 650 mg Q4H PRN GT FEVER 08/16/18 14:00 09/15/18 13:59 08/24/18 12:21 Albuterol/ Ipratropium (Albuterol/ Ipratropium) 3 ml Q4HRT PRN HHN Shortness of Breath 08/22/18 13:45 08/27/18 13:44 08/25/18 12:59 Amikacin Protocol (Amikacin pharmacy to dose) 1 ea DAILY PRN MISC Per rx protocol 08/19/18 12:45 09/18/18 12:44 Amikacin Sulfate 1000 mg/Sodium Chloride 114 ml @ 114 mls/hr Q24H IV 08/25/18 16:00 09/01/18 15:59 Amlodipine Besylate (Norvasc) 5 mg DAILY GT 08/17/18 09:00 09/16/18 08:59 08/25/18 08:52 Colistimethate Sodium (Colistin *inhalation use only*) 150 mg Q12HR@10,22 INH 08/19/18 22:00 08/26/18 21:59 08/25/18 12:59 Dextrose (Dextrose 50%) 25 ml Q30M PRN IV Hypoglycemia 08/16/18 16:00 09/15/18 15:59 Dextrose (Dextrose 50%) 50 ml Q30M PRN IV Hypoglycemia 08/16/18 16:00 09/15/18 15:59 Gentamicin Sulfate (Garamycin 0.3% Opt Sol) 1 drop TID LEFT EYE 08/23/18 18:00 09/02/18 13:01 08/25/18 12:30 Heparin Sodium (Porcine) (Heparin 5000 units/ml) 5,000 units EVERY 12 HOURS SUBQ 08/16/18 21:00 09/15/18 20:59 08/25/18 08:49 Hydralazine HCl (Apresoline) 10 mg EVERY 6 HOURS GT 08/16/18 18:00 09/15/18 17:59 08/25/18 06:06 Insulin Aspart (NovoLOG) Q6HR SUBQ 08/16/18 18:00 09/15/18 17:59 08/25/18 05:59 Lactulose (Cephulac) 20 gm TWICE A DAY GT 08/16/18 18:00 09/15/18 17:59 08/25/18 08:47 Lansoprazole (Prevacid) 30 mg DAILY GT 08/20/18 09:00 09/19/18 08:59 08/25/18 08:47 Ondansetron HCl (Zofran) 4 mg Q6H PRN IVP Nausea & Vomiting 08/16/18 14:00 09/15/18 13:59 Polyethylene Glycol (Miralax) 17 gm DAILYPRN PRN GT Constipation 08/16/18 14:00 09/15/18 13:59 08/16/18 21:09 Yeny Webb M.D. Aug 25, 2018 15:57
[2018-08-25] MEDS: Amikacin 1,000 MG in NS 110 ML IV SCH (15:58)
[2018-08-25 16:00] VITALS: BP 113/56
--- NOTE | 2018-08-25 16:48 | NUR ---
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 VENTILATOR DEPENDENT VS: BP 113/56, P 59, T 99.2, RR 16, SpO2 100 VENT FiO2 40 WBC 12.4, RBC 4.01, BUN 20, CR 0.5 IS: AMIKACIN SULFATE 114ml IV GENTAMICIN SULFATE 1DROP ALBUTEROL 3ml HHN LANSOPRAZOLE 30mg COLISTIN 150mg INH NORVASC 5mg HEPARIN SUBQ LACTULOSE 20gm SDU STATUS
--- NOTE | 2018-08-25 19:15 | NUR ---
NURSE NOTES: PT report received from JUSTINE GHOSH. PT is alert and oriented times 2. pt is [place] speaking. is at bed side. PT teletypesetter monitor is on. pt appears to be tolerating well on vent settings- AC16, TV500, FIO2 40%, PEEP of 5. pt has GT feeding on hold until 10PM - Vital AF 1.2 @65cc/HR. pure wick is intact and set to suction. no signs or symptoms of acute respiratory or cardiac distress noted. pt bed is in lowest position. call light is within easy reach. Pt bed alarm is on, side rails are up times 3, safety breaks are engaged. pt appears to be resting comfortably. R hand 22G intact and patent- TKO. safety measures continued. will continue plan of care. Addendum: 08/26/18 at 0625 by PARISH AMAYA RN side rails padded and maintained for seizure precautions- no seizure activity noted during assessment.
--- NOTE | 2018-08-25 19:15 | Diagnostic Imaging Report ---
Indication: Dyspnea Comparison: 08/22/2018 A single view chest radiograph was obtained. Findings: There is silhouetting of the left hemidiaphragm. The heart is enlarged. Tracheostomy noted. Bones are osteopenic. IMPRESSION: No change from the prior exam. Left pleural effusion and or parenchymal disease
--- NOTE | 2018-08-25 19:16 | Diagnostic Imaging Report ---
APPROVED REPORT CPT Code: 02515 Present Symptoms Lower Extremity Edema: BILATERAL: Imaging reveals a patent deep venous system bilaterally. There is no evidence of thrombus within the femoral, popliteal or tibial segments. The greater saphenous veins are also within normal limits. Doppler indicates normal spontaneous flow within these segments.
--- NOTE | 2018-08-25 19:20 | NUR ---
HAND-OFF: Report given to Link Barboza RN.
[2018-08-25 20:00] VITALS: BP 156/96
[2018-08-26] VITALS: BP 123/73
[2018-08-26] MEDS: HydrALAZINE 10mg Tab GT SCH ×5 (00:26→23:23)
[2018-08-26 04:00] VITALS: BP 133/81
[2018-08-26 05:37] LABS: ALANINE AMINOTRANSFERASE 35 U/L (12-78); ALBUMIN 3.4 G/DL (3.4-5.0); ALBUMIN/GLOBULIN RATIO 0.7 (1.0-2.7); ALKALINE PHOSPHATASE 74 U/L (46-116); ANION GAP 12 mmol/L (5-15); ASPARTATE AMINO TRANSFERASE 9 U/L (15-37); BASOPHILS % (AUTO) 1.1 % (0.0-2.0); BILIRUBIN,TOTAL 0.3 MG/DL (0.2-1.0); BLOOD UREA NITROGEN 26 mg/dL (7-18); CALCIUM 9.9 MG/DL (8.5-10.1); CARBON DIOXIDE 27 MMOL/L (21-32); CHLORIDE 105 MMOL/L (98-107); CREATININE 0.5 MG/DL (0.55-1.30); EOSINOPHILS % (AUTO) 1.8 % (0.0-3.0); HEMATOCRIT 37.1 % (37.0-47.0); LYMPHOCYTES % (AUTO) 25.2 % (20.0-45.0); MEAN CORPUSCULAR VOLUME 95 FL (80-99); MONOCYTES % (AUTO) 5.3 % (1.0-10.0); NEUTROPHILS % (AUTO) 66.6 % (45.0-75.0); PLATELET COUNT 396 K/UL (150-450); POTASSIUM 3.7 MMOL/L (3.5-5.1); RED BLOOD COUNT 3.89 M/UL (4.20-5.40); RED CELL DISTRIBUTION WIDTH 11.7 % (11.6-14.8); SODIUM 143 MMOL/L (136-145); WHITE BLOOD COUNT 13.3 K/UL (4.8-10.8)
[2018-08-26] MEDS: NovoLOG Insulin Flexpen SUBQ SCH ×5 (06:00→23:26)
--- NOTE | 2018-08-26 06:00 | Progress Note ---
DATE: 08/25/2018 SUBJECTIVE: The patient is awake, alert, afebrile, and hemodynamically stable. Blood pressure maintained and no tachycardia at rest. PHYSICAL EXAMINATION: VITAL SIGNS: Blood pressure is 156/96, his pulse is 76, respirations 16, and temperature 97.2. HEENT: Eyes were normal. ENT, mucous membranes were moist and intact. NECK: Supple with no JVD without lymph nodes. Tracheostomy site is clean. LUNGS: Clear without rhonchi, rales, or wheezing. ABDOMEN: Soft and nontender with normal bowel sounds. Gastrostomy site is clean. EXTREMITIES: Warm without cyanosis, clubbing, or edema. LABORATORY AND DIAGNOSTIC DATA: Hemoglobin 12.3, hematocrit 37.1 with MCV of 94, WBC of 12.4, and platelets is 385,000. Her BUN and creatinine is 20 and 0.5 respectively. Sodium is 140, potassium 3.9, chloride 102, and CO2 is 25. IMPRESSION AND PLAN: The patient has markedly improved clinically. So, I am going to clear her from Infectious Disease and on discharge, her resolved. Her tachycardia did not resolve. We will continue with current antibiotics till the course will be completed. . Repeat laboratory tests will be done in the a.m. Karissa Fox M.D. DR: WALDO JOB#: [id number] CC:
--- NOTE | 2018-08-26 07:20 | NUR ---
NURSE NOTES: RECEIVED BED SIDE REPORT FROM MARIANA GHOSH OF [facility] SHIFT STAFF. RECEIVED PT WITH HOB ELEVATED 45 DEGREE AWAKE AND ALERT ABLE TO FOLLOW SIMPLE COMMANDS IN [place] ONLY.PT NON-VERBAL TRACH TO VENT .PT WITH TRACH PATENT AND INTACT AT MID LINE WELL SECURED.PT TOLERATING WELL CURRENTS VENT SETTINGS SAT 98 TO 100%.PT RENDERED TRACH CARE AND ORAL HYGIENE,SX,D MOD AMT OF WHITE YELLOWISH SECRETIONS.PT WITH GT TOLERATING WELL VITAL 1,2 @ 65CC/HRS, NO RESIDUAL NOTED AT THIS TIME.FULL BODY ASSESSMENT DONE AND REPOSITIONED Q2HRS TO PROVIDE COMFORT AND PREVENT SKIN BREAK DOWN.NO ACUTE DISTRESS NOTED AT THIS TIME.WILL CONT TO MONITOR.
--- NOTE | 2018-08-26 07:41 | NUR ---
HAND-OFF: Report given to ALLYSON GHOSH.pt remains stable, no distress noted.
[2018-08-26 08:00] VITALS: BP 113/71
--- NOTE | 2018-08-26 09:22 | NUR ---
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 NOSOCOMIAL PNA VS: BP 90/71, P 55, T 97.8, RR 16, SpO2 99 on Vent FiO2 40 AC16, TV500, PEEP OF 5 WBC 13.3, RBC 3.89, BUN 26, CR 0.5 CXR IMPRESSION: No change from the prior exam. Left pleural effusion and or parenchymal disease IS:AMIKACIN SULFATE 114ml IV GENTAMICIN SULFATE 1 DROP ALBUTEROL 3ml HHN PREVACID 30mg GT COLISTIN 150mg INH NORVASC 5mg HEPARIN SUBQ LACTULOSE 20gm SDU STATUS
--- NOTE | 2018-08-26 09:43 | NUR ---
RADIOLOGY DEPT., CHEST X-RAY DONE.-P.DYE
[2018-08-26] MEDS: Colistin for inhalation INH SCH ×2 (10:14→22:59)
--- NOTE | 2018-08-26 11:21 | NUR ---
*-* INSURANCE *-* UPDATED CLINICALS HAVE BEEN FAXED TO: [facility]/W JASVIR @ [phone] [facility] WILL TRACK THIS ADMISSION NO GEOPHYSICAL OPERATOR ASSIGNED AT THIS TIME. PLEASE FAX THE REVIEW/CLINICAL P- [phone] f- [phone]
--- NOTE | 2018-08-26 11:47 | Pulmonolgy Critical Care Note ---
Critical Care - Asmt/Plan Problems: (1) Acute on chronic respiratory failure (2) Nosocomial pneumonia (3) Cardiac arrest (4) Feeding by G-tube (5) Sepsis Respiratory: monitor respiratory rate Cardiac: start pressors, stop pressors Renal: keep IV fluid Infectious Disease: other - -Continue IV Amikacin and INH colistin #7/7-10 for MDR ABC and add Tigecycline given leukocytosis Gastrointestinal: continue feedings/current rate Endocrine: monitor blood sugar Hematologic: monitor H/H Affect: PRN ativan Prophylaxis: Heparin Notes Reviewed: clinical application manager, renal Discussed with: consultants Critical Care - Objective Last 24 Hour Vital Signs Date Time Temp Pulse Resp B/P (MAP) Pulse Ox O2 Delivery O2 Flow Rate FiO2 08/26/18 10:27 60 16 100 Mechanical Ventilator 40 08/26/18 10:15 58 17 100 Mechanical Ventilator 40 08/26/18 08:30 61 16 40 08/26/18 08:00 98.4 57 16 113/71 (85) 100 08/26/18 08:00 53 08/26/18 08:00 40 08/26/18 07:06 60 16 40 08/26/18 05:32 90/71 08/26/18 05:09 57 16 40 08/26/18 04:00 Mechanical Ventilator 08/26/18 04:00 55 08/26/18 04:00 97.8 59 17 133/81 (98) 99 08/26/18 04:00 40 08/26/18 03:07 63 16 40 08/26/18 01:09 59 16 40 08/26/18 00:26 123/73 08/26/18 00:00 58 08/26/18 00:00 Mechanical Ventilator 08/26/18 00:00 97.5 73 18 123/73 (90) 99 08/26/18 00:00 40 08/25/18 23:22 61 16 100 Mechanical Ventilator 40 08/25/18 22:53 65 16 40 08/25/18 22:51 61 16 100 Mechanical Ventilator 40 08/25/18 21:30 61 16 40 08/25/18 20:00 67 08/25/18 20:00 Mechanical Ventilator 08/25/18 20:00 97.2 76 17 156/96 (116) 99 08/25/18 20:00 40 08/25/18 19:48 67 16 40 08/25/18 18:42 130/78 08/25/18 17:00 70 16 40 08/25/18 16:00 98.1 73 18 113/56 (75) 100 08/25/18 16:00 75 08/25/18 16:00 40 08/25/18 16:00 Mechanical Ventilator 08/25/18 15:10 72 16 40 08/25/18 13:08 66 16 100 Mechanical Ventilator 40 08/25/18 12:59 60 16 100 Mechanical Ventilator 40 08/25/18 12:53 74 16 40 08/25/18 12:00 59 08/25/18 12:00 117/53 08/25/18 12:00 Mechanical Ventilator 08/25/18 12:00 99.2 61 16 117/53 (74) 100 08/25/18 12:00 40 Status: awake Condition: grave Lungs: clear Heart: HR/BP stable Abdomen: soft, active bowel sounds Decubiti: location Micro: Microbiology Date/Time Source Procedure Growth Status 08/24/18 16:56 Blood Blood Culture - Preliminary NO GROWTH AFTER 24 HOURS Resulted 08/24/18 16:50 Blood Blood Culture - Preliminary NO GROWTH AFTER 24 HOURS Resulted 08/24/18 11:30 Sputum Gram Stain - Final Resulted 08/24/18 11:30 Sputum Culture - Preliminary Gram Negative Bacillus 1 Resulted Accucheck: 150 Critical Care - Subjective ROS Limited/Unobtainable: Yes Condition: critical FI02: 40 Vent Support Breath Rate: 16 Vent Support Mode: AC Vent Tidal Volume: 500 Sputum Amount: Small PEEP: 5.0 PIP: 24 Tube Feeding Amount: 65 I&O: Intake and Output 08/25/18 08/26/18 19:00 07:00 Intake Total 929 ml 685 ml Output Total 500 ml 250 ml Balance 429 ml 435 ml Intake Free Water 100 ml IV Total 114 ml Tube Feeding 715 ml 585 ml Other 100 ml Output Urine Total 500 ml 250 ml Labs: Laboratory Tests Test 08/25/18 13:15 08/26/18 03:10 Amikacin Level Trough < 2.5 ug/mL (4.0-8.0) L White Blood Count 13.3 K/UL (4.8-10.8) H Red Blood Count 3.89 M/UL (4.20-5.40) L Hemoglobin 12.0 G/DL (12.0-16.0) Hematocrit 37.1 % (37.0-47.0) Mean Corpuscular Volume 95 FL (80-99) Mean Corpuscular Hemoglobin 30.9 PG (27.0-31.0) Mean Corpuscular Hemoglobin Concent 32.4 G/DL (32.0-36.0) Red Cell Distribution Width 11.7 % (11.6-14.8) Platelet Count 396 K/UL (150-450) Mean Platelet Volume 6.5 FL (6.5-10.1) Neutrophils (%) (Auto) 66.6 % (45.0-75.0) Lymphocytes (%) (Auto) 25.2 % (20.0-45.0) Monocytes (%) (Auto) 5.3 % (1.0-10.0) Eosinophils (%) (Auto) 1.8 % (0.0-3.0) Basophils (%) (Auto) 1.1 % (0.0-2.0) Sodium Level 143 MMOL/L (136-145) Potassium Level 3.7 MMOL/L (3.5-5.1) Chloride Level 105 MMOL/L (98-107) Carbon Dioxide Level 27 MMOL/L (21-32) Anion Gap 12 mmol/L (5-15) Blood Urea Nitrogen 26 mg/dL (7-18) H Creatinine 0.5 MG/DL (0.55-1.30) L Estimat Glomerular Filtration Rate > 60 mL/min (>60) Glucose Level 120 MG/DL (74-106) H Calcium Level 9.9 MG/DL (8.5-10.1) Total Bilirubin 0.3 MG/DL (0.2-1.0) Aspartate Amino Transf (AST/SGOT) 9 U/L (15-37) L Alanine Aminotransferase (ALT/SGPT) 35 U/L (12-78) Alkaline Phosphatase 74 U/L (46-116) Total Protein 8.2 G/DL (6.4-8.2) Albumin 3.4 G/DL (3.4-5.0) Globulin 4.8 g/dL Albumin/Globulin Ratio 0.7 (1.0-2.7) L Curtis Mcgovern MD Aug 26, 2018 11:46
[2018-08-26] MEDS: Lactulose 20gm/30ml UDC GT SCH ×2 (11:51→18:32)
--- NOTE | 2018-08-26 11:51 | Diagnostic Imaging Report ---
Indication: Dyspnea Comparison: 08/25/2018 A single view chest radiograph was obtained. Findings: The heart is enlarged. There is a tracheostomy present. The aorta is calcified. There may be infiltrate or atelectasis at the left lung base. IMPRESSION: No change from the prior day
[2018-08-26] MEDS: Gentamicin 0.3% Opth Soln 5ml LEFT EYE SCH ×3 (11:54→18:27)
[2018-08-26] MEDS: Heparin 5000 units/ml inj SUBQ SCH ×2 (11:57→20:28)
[2018-08-26 12:00] VITALS: BP 124/78
[2018-08-26] MEDS ORDERED: [UNRECOGNIZED DRUG - OTHER] IVPB ONE ×2 (13:00)
--- NOTE | 2018-08-26 14:05 | Infectious Diseases Prog Note ---
Assessment/Plan Assessment/Plan Assessment: PNA -08/18 CXR: Interim partial improvement of left basilar infiltrate, over 3 days -CTA chest: No evidence of pulmonary embolism. Bronchiectasis with mild volume loss and consolidation in the left lower lobe, which may suggest atelectasis versus pneumonia. Small layering left pleural effusion. -sp cx MDR ABC (I Ceftazidime; S Amikacin), PsA (arce S) -influenza sc neg -CXR: Opacity in the left lung base which may represent pleural effusion and atelectasis. Pneumonia is not excluded. 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 chronic trach and peg HLD HTN bed bound SNF resident Plan: -Continue IV Amikacin and INH colistin #8/10 for MDR ABC and Tigecycline #/-7 given leukocytosis (double coverage for MDR ABC) -08/24 SP Zosyn # 8 -08/18 SP IV Vancomycin #2 -08/16 SP Zosyn x1 -f/u Bcx x2, u/a w/ reflex -f.u cx -Monitor CBC/CMP, temperatures -aspiration precautions -PEG/Trach care -cdiff if diarrhea Subjective Allergies: Coded Allergies: MILK (Verified Allergy, Unknown, 08/16/18) Subjective afebrile wbc improving Objective Vital Signs Last 24 Hour Vital Signs Date Time Temp Pulse Resp B/P (MAP) Pulse Ox O2 Delivery O2 Flow Rate FiO2 08/26/18 13:00 66 16 40 08/26/18 12:00 53 08/26/18 12:00 98.4 67 16 124/78 (93) 100 08/26/18 11:51 60 113/71 08/26/18 10:27 60 16 100 Mechanical Ventilator 40 08/26/18 10:15 58 17 100 Mechanical Ventilator 40 08/26/18 08:30 61 16 40 08/26/18 08:00 98.4 57 16 113/71 (85) 100 08/26/18 08:00 53 08/26/18 08:00 40 08/26/18 07:06 60 16 40 08/26/18 05:32 90/71 08/26/18 05:09 57 16 40 08/26/18 04:00 Mechanical Ventilator 08/26/18 04:00 55 08/26/18 04:00 97.8 59 17 133/81 (98) 99 08/26/18 04:00 40 08/26/18 03:07 63 16 40 08/26/18 01:09 59 16 40 08/26/18 00:26 123/73 08/26/18 00:00 58 08/26/18 00:00 Mechanical Ventilator 08/26/18 00:00 97.5 73 18 123/73 (90) 99 08/26/18 00:00 40 08/25/18 23:22 61 16 100 Mechanical Ventilator 40 08/25/18 22:53 65 16 40 08/25/18 22:51 61 16 100 Mechanical Ventilator 40 08/25/18 21:30 61 16 40 08/25/18 20:00 67 08/25/18 20:00 Mechanical Ventilator 08/25/18 20:00 97.2 76 17 156/96 (116) 99 08/25/18 20:00 40 08/25/18 19:48 67 16 40 08/25/18 18:42 130/78 08/25/18 17:00 70 16 40 08/25/18 16:00 98.1 73 18 113/56 (75) 100 08/25/18 16:00 75 08/25/18 16:00 40 08/25/18 16:00 Mechanical Ventilator 08/25/18 15:10 72 16 40 Height (Feet): 5 Height (Inches): 4.00 Weight (Pounds): 186 Objective HEENT: Pupils were round, equal, and reactive to light. Sclerae was white. . ENT, mucous membranes were not dehydrated. NECK: Supple. There was no goiter. No mass. No lymphadenopathy. There was no JVD. No bruits. LUNGS: Clear with decreased breath sounds in both bases, more on the left than on the right. HEART: There was normal S1 and normal S2. There was no murmur. No arrhythmia. No S3. No S4. No pericardial rub. ABDOMEN: Soft. Nontender without organomegaly. There were no masses palpable. Normal bowel sounds without bruits. There was no guarding. No rebound tenderness. No ascites. EXTREMITIES: No cyanosis, no clubbing, and no edema. Extremities were warm. Microbiology Date/Time Source Procedure Growth Status 08/24/18 16:56 Blood Blood Culture - Preliminary NO GROWTH AFTER 24 HOURS Resulted 08/24/18 16:50 Blood Blood Culture - Preliminary NO GROWTH AFTER 24 HOURS Resulted 08/24/18 11:30 Sputum Gram Stain - Final Resulted 08/24/18 11:30 Sputum Culture - Preliminary Gram Negative Bacillus 1 Resulted Laboratory Tests Test 08/26/18 03:10 White Blood Count 13.3 K/UL (4.8-10.8) H Red Blood Count 3.89 M/UL (4.20-5.40) L Hemoglobin 12.0 G/DL (12.0-16.0) Hematocrit 37.1 % (37.0-47.0) Mean Corpuscular Volume 95 FL (80-99) Mean Corpuscular Hemoglobin 30.9 PG (27.0-31.0) Mean Corpuscular Hemoglobin Concent 32.4 G/DL (32.0-36.0) Red Cell Distribution Width 11.7 % (11.6-14.8) Platelet Count 396 K/UL (150-450) Mean Platelet Volume 6.5 FL (6.5-10.1) Neutrophils (%) (Auto) 66.6 % (45.0-75.0) Lymphocytes (%) (Auto) 25.2 % (20.0-45.0) Monocytes (%) (Auto) 5.3 % (1.0-10.0) Eosinophils (%) (Auto) 1.8 % (0.0-3.0) Basophils (%) (Auto) 1.1 % (0.0-2.0) Sodium Level 143 MMOL/L (136-145) Potassium Level 3.7 MMOL/L (3.5-5.1) Chloride Level 105 MMOL/L (98-107) Carbon Dioxide Level 27 MMOL/L (21-32) Anion Gap 12 mmol/L (5-15) Blood Urea Nitrogen 26 mg/dL (7-18) H Creatinine 0.5 MG/DL (0.55-1.30) L Estimat Glomerular Filtration Rate > 60 mL/min (>60) Glucose Level 120 MG/DL (74-106) H Calcium Level 9.9 MG/DL (8.5-10.1) Total Bilirubin 0.3 MG/DL (0.2-1.0) Aspartate Amino Transf (AST/SGOT) 9 U/L (15-37) L Alanine Aminotransferase (ALT/SGPT) 35 U/L (12-78) Alkaline Phosphatase 74 U/L (46-116) Total Protein 8.2 G/DL (6.4-8.2) Albumin 3.4 G/DL (3.4-5.0) Globulin 4.8 g/dL Albumin/Globulin Ratio 0.7 (1.0-2.7) L Current Medications Medications (Trade) Dose Ordered Sig/Marzena Route PRN Reason Start Time Stop Time Status Last Admin Dose Admin Acetaminophen (Tylenol) 650 mg Q4H PRN GT FEVER 08/16/18 14:00 09/15/18 13:59 08/24/18 12:21 Albuterol/ Ipratropium (Albuterol/ Ipratropium) 3 ml Q4HRT PRN HHN Shortness of Breath 08/22/18 13:45 08/27/18 13:44 08/25/18 12:59 Amikacin Protocol (Amikacin pharmacy to dose) 1 ea DAILY PRN MISC Per rx protocol 08/19/18 12:45 09/18/18 12:44 Amikacin Sulfate 1000 mg/Sodium Chloride 114 ml @ 114 mls/hr Q24H IV 08/25/18 16:00 09/01/18 15:59 08/25/18 15:58 Amlodipine Besylate (Norvasc) 5 mg DAILY GT 08/17/18 09:00 09/16/18 08:59 08/26/18 11:51 Colistimethate Sodium (Colistin *inhalation use only*) 150 mg Q12HR@10,22 INH 08/19/18 22:00 08/28/18 23:59 08/26/18 10:14 Dextrose (Dextrose 50%) 25 ml Q30M PRN IV Hypoglycemia 08/16/18 16:00 09/15/18 15:59 Dextrose (Dextrose 50%) 50 ml Q30M PRN IV Hypoglycemia 08/16/18 16:00 09/15/18 15:59 Gentamicin Sulfate (Garamycin 0.3% Opt Soln) 1 drop TID LEFT EYE 08/23/18 18:00 09/02/18 13:01 08/26/18 11:54 Heparin Sodium (Porcine) (Heparin 5000 units/ml) 5,000 units EVERY 12 HOURS SUBQ 08/16/18 21:00 09/15/18 20:59 08/26/18 11:57 Hydralazine HCl (Apresoline) 10 mg EVERY 6 HOURS GT 08/16/18 18:00 09/15/18 17:59 08/26/18 00:26 Insulin Aspart (NovoLOG) Q6HR SUBQ 08/16/18 18:00 09/15/18 17:59 08/26/18 12:11 Lactulose (Cephulac) 20 gm TWICE A DAY GT 08/16/18 18:00 09/15/18 17:59 08/26/18 11:51 Lansoprazole (Prevacid) 30 mg DAILY GT 08/20/18 09:00 09/19/18 08:59 08/26/18 11:52 Ondansetron HCl (Zofran) 4 mg Q6H PRN IVP Nausea & Vomiting 08/16/18 14:00 09/15/18 13:59 Polyethylene Glycol (Miralax) 17 gm DAILYPRN PRN GT Constipation 08/16/18 14:00 09/15/18 13:59 08/16/18 21:09 Tigecycline 50 mg/ Sodium Chloride 110 ml @ 220 mls/hr Q12HR IVPB 08/26/18 23:00 09/02/18 22:59 Yeny Webb M.D. Aug 26, 2018 14:05
[2018-08-26] MEDS: Acetaminophen 650mg/20.3ml GT PRN ×2 (14:58→20:27)
[2018-08-26 16:00] VITALS: BP 116/69
--- NOTE | 2018-08-26 16:00 | NUR ---
*-* CASE MANAGEMENT NOTES *-* PATIENT DAUGHTER ELLIOTT CONFIRMED PTS HOME ADDRESS [id number] [facility] [place] [facility] [id number] P:[phone] MARTHA SPOUSE P:[phone] ELLIOTT DAUGHTER
[2018-08-26] MEDS: Amikacin 1,000 MG in NS 110 ML IV SCH (16:37)
[2018-08-26] MEDS ORDERED: Tubing IV Secondary IV ONE (18:01)
[2018-08-26] MEDS ORDERED: NS 275ml ONE (18:01)
--- NOTE | 2018-08-26 19:15 | NUR ---
HAND-OFF: Report given to .LEIGHANN GHOSH.
--- NOTE | 2018-08-26 19:25 | NUR ---
NURSE NOTES: Received patient from Bobby GHOSH. Patient is awake with family. 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 Receiving oxygen via Portex 7 with settings AC 16, TV 500, FiO2 40%, PEEP 5. Patient's G Tube feeding is held from 6pm to 10pm, to continue Vital 1.2 at 65cc/hr. Pure wick is patent and set to suction. IV site is left hand 24g, patent and asymptomatic. Bed is locked, placed in lowest position, padded side for seizure precaution, side rails up x3, call light is within reach. All needs attended to, safety measures continued, will continue to monitor.
--- NOTE | 2018-08-26 19:40 | NUR ---
HAND-OFF: Report given to .LEIGHANN GHOSH.
[2018-08-26 20:00] VITALS: BP 152/84
--- NOTE | 2018-08-26 20:17 | NUR ---
NURSE NOTES: Left message for Dr. Mcgovern patient having abdominal pain. Can we change Tylenol order to fever and pain - Waiting for call back from doctor.
--- NOTE | 2018-08-26 20:18 | NUR ---
NURSE NOTES: per Dr. Froilan hammonds to change order, Tylenol for pain and fever. Orders carried out.
[2018-08-26] MEDS: [UNRECOGNIZED DRUG - OTHER] IVPB SCH ×2 (23:23)
[2018-08-27] VITALS: BP 126/84
[2018-08-27 04:00] VITALS: BP 125/71
[2018-08-27 05:25] LABS: EOSINOPHILS % (AUTO) 2.1 % (0.0-3.0); HEMATOCRIT 36.8 % (37.0-47.0); HEMOGLOBIN 11.9 G/DL (12.0-16.0); LYMPHOCYTES % (AUTO) 30.5 % (20.0-45.0); MEAN CORPUSCULAR VOLUME 96 FL (80-99); MONOCYTES % (AUTO) 5.6 % (1.0-10.0); NEUTROPHILS % (AUTO) 60.9 % (45.0-75.0); PLATELET COUNT 381 K/UL (150-450); RED BLOOD COUNT 3.82 M/UL (4.20-5.40); RED CELL DISTRIBUTION WIDTH 11.9 % (11.6-14.8); WHITE BLOOD COUNT 13.6 K/UL (4.8-10.8)
--- NOTE | 2018-08-27 05:30 | Progress Note ---
DATE: 08/26/2018 SUBJECTIVE: The patient is awake, alert, afebrile, and hemodynamically stable. The patient appeared to be more energetic than previously. PHYSICAL EXAMINATION: VITAL SIGNS: Blood pressure is 152/84, his pulse is 72, respirations of 16, and temperature of 97.7. HEENT: Eyes were normal. ENT, mucous membranes were moist and intact. NECK: Supple with no JVD without lymph nodes. Tracheostomy site is clean. LUNGS: Clear without rhonchi, rales, or wheezing. Secretions are small, thin, and gao. HEART: Normal sounds with regular beats. There is no tachycardia at rest. ABDOMEN: Soft and nontender with normal bowel sounds. Gastrostomy site is clean. EXTREMITIES: Warm without cyanosis, clubbing, or edema. LABORATORY AND DIAGNOSTIC DATA: Hemoglobin is 12.0, hematocrit was 37.1 with MCV of 95, WBC of 7.3, and platelets is 396,000. His BUN and creatinine is 26 and 0.5 respectively. Sodium is 143, potassium 3.7, chloride 105, and CO2 is 27. Calcium is 9.9. . Albumin is 3.4 and total protein is 8.2. Latest x-ray shows cardiomegaly with an infiltrate and atelectasis in the left lower lobe base. On the right, there is no active disease. IMPRESSION: Clinically, the patient is in the last 48 to 72 hours. Repeat laboratory tests will be done in the a.m. If the patient continued to improve, he may be discharged in the a.m. back to the subacute unit. Karissa Fox M.D. DR: WALDO JOB#: [id number] CC:
[2018-08-27 05:42] LABS: ALANINE AMINOTRANSFERASE 30 U/L (12-78); ALBUMIN 3.3 G/DL (3.4-5.0); ALBUMIN/GLOBULIN RATIO 0.7 (1.0-2.7); ALKALINE PHOSPHATASE 74 U/L (46-116); ANION GAP 11 mmol/L (5-15); ASPARTATE AMINO TRANSFERASE 6 U/L (15-37); BILIRUBIN,TOTAL 0.2 MG/DL (0.2-1.0); BLOOD UREA NITROGEN 39 mg/dL (7-18); CALCIUM 9.8 MG/DL (8.5-10.1); CARBON DIOXIDE 27 MMOL/L (21-32); CHLORIDE 105 MMOL/L (98-107); CREATININE 0.5 MG/DL (0.55-1.30); PHOSPHORUS 4.1 MG/DL (2.5-4.9); POTASSIUM 4.2 MMOL/L (3.5-5.1); SODIUM 143 MMOL/L (136-145)
[2018-08-27] MEDS: HydrALAZINE 10mg Tab GT SCH ×3 (06:00→17:45)
[2018-08-27] MEDS: NovoLOG Insulin Flexpen SUBQ SCH ×4 (06:00→23:57)
--- NOTE | 2018-08-27 06:00 | NUR ---
NURSE NOTES: Patient refused blood pressure medication and Insulin. Patient was made aware of the benefits and consequences of medications and still refused.
--- NOTE | 2018-08-27 07:35 | NUR ---
RESPIRATORY NOTE: received pt on vent, trach with portex [address] via trach tie/guard. no redness visible around stoma or neck. no resp distress noted at this time. vent alarms are set and audible with vent plugged into the red outlet. will cont to monitor
--- NOTE | 2018-08-27 07:35 | NUR ---
HAND-OFF: Report given to Marifer Morgan RN.
--- NOTE | 2018-08-27 07:40 | NUR ---
NURSE NOTES: Report received from Farhat RN/Victorino RN.Pt awake,alert in no resp distress,with trach tube to Vent,on current settings,tolerating well,no signs of pain or discomfort,SR on the monitor,GTF Vital AF1.2 at 65ml/hr ,no residual noted,IV site to LH intact,skin warm and dry,SR upx2 HOB elevated,bed lock in lowest position,will continue with plans of care.
[2018-08-27 08:00] VITALS: BP 121/74
[2018-08-27] MEDS: Colistin for inhalation INH SCH ×2 (09:08→22:44)
[2018-08-27] MEDS: Gentamicin 0.3% Opth Soln 5ml LEFT EYE SCH ×3 (09:51→17:46)
[2018-08-27] MEDS: Lactulose 20gm/30ml UDC GT SCH ×2 (09:52→17:46)
[2018-08-27] MEDS: Heparin 5000 units/ml inj SUBQ SCH ×2 (09:54→20:43)
[2018-08-27] MEDS: [UNRECOGNIZED DRUG - OTHER] IVPB SCH ×4 (10:43→20:42)
--- NOTE | 2018-08-27 11:36 | Pulmonolgy Critical Care Note ---
Critical Care - Asmt/Plan Problems: (1) Acute on chronic respiratory failure (2) Nosocomial pneumonia (3) Cardiac arrest (4) Feeding by G-tube (5) Sepsis Respiratory: monitor respiratory rate, adjust FIO2, CXR Cardiac: continue pressors Renal: keep IV fluid Infectious Disease: check cultures Gastrointestinal: continue feedings/current rate Endocrine: monitor blood sugar, check HgA1C Neurologic: PRN Ativan Prophylaxis: Protonix, Heparin Time Spent (Minutes): 40 Notes Reviewed: cardio Discussed with: nurses, consultants, business case analystmanager convention - Objective Last 24 Hour Vital Signs Date Time Temp Pulse Resp B/P (MAP) Pulse Ox O2 Delivery O2 Flow Rate FiO2 08/27/18 11:17 56 16 40 08/27/18 09:52 69 121/74 08/27/18 09:34 69 16 100 Mechanical Ventilator 40 08/27/18 09:09 69 21 100 Mechanical Ventilator 40 08/27/18 09:07 63 21 40 08/27/18 08:00 97.9 59 20 121/74 (90) 100 08/27/18 07:33 68 21 40 08/27/18 06:00 125/71 08/27/18 05:29 64 1 40 40 08/27/18 04:00 40 08/27/18 04:00 Mechanical Ventilator 08/27/18 04:00 97.5 65 17 125/71 (89) 100 08/27/18 03:25 57 08/27/18 02:53 60 16 40 40 08/27/18 00:38 79 17 40 40 08/27/18 00:00 97.5 63 17 126/84 (98) 100 08/27/18 00:00 Mechanical Ventilator 08/26/18 23:25 62 08/26/18 23:23 152/84 08/26/18 23:09 61 16 100 Mechanical Ventilator 40 08/26/18 23:02 57 16 40 40 08/26/18 22:59 57 16 100 Mechanical Ventilator 40 08/26/18 21:04 67 17 40 40 08/26/18 20:00 Mechanical Ventilator 08/26/18 20:00 97.7 72 16 152/84 (106) 100 08/26/18 20:00 40 08/26/18 19:28 61 08/26/18 19:25 60 17 40 40 08/26/18 18:31 116/69 08/26/18 17:15 68 18 40 08/26/18 16:00 Mechanical Ventilator 08/26/18 16:00 40 08/26/18 16:00 98.2 57 16 116/69 (85) 100 08/26/18 16:00 54 08/26/18 15:28 98.4 08/26/18 14:45 124/78 08/26/18 14:40 63 16 40 08/26/18 13:00 66 16 40 08/26/18 12:00 40 08/26/18 12:00 53 08/26/18 12:00 Mechanical Ventilator 08/26/18 12:00 98.4 67 16 124/78 (93) 100 08/26/18 11:51 60 113/71 Status: awake Condition: critical HEENT: atraumatic Lungs: clear Heart: HR/BP unstable Abdomen: soft, active bowel sounds Extremities: no C/C/E Micro: Microbiology Date/Time Source Procedure Growth Status 08/24/18 16:56 Blood Blood Culture - Preliminary NO GROWTH AFTER 48 HOURS Resulted 08/24/18 16:50 Blood Blood Culture - Preliminary NO GROWTH AFTER 48 HOURS Resulted Accucheck: 111 Critical Care - Subjective ROS Limited/Unobtainable: Yes Condition: critical EKG Rhythm: Sinus Rhythm FI02: 40 Vent Support Breath Rate: 16 Vent Support Mode: AC Vent Tidal Volume: 500 Sputum Amount: Scant PEEP: 5.0 PIP: 33 Tube Feeding Amount: 65 I&O: Intake and Output 08/26/18 08/27/18 18:59 06:59 Intake Total 1204 ml 620 ml Output Total 150 ml 175 ml Balance 1054 ml 445 ml Intake Free Water 200 ml 100 ml IV Total 224 ml Tube Feeding 780 ml 520 ml Output Urine Total 175 ml Stool Total 150 ml # Voids 3 1 Labs: Laboratory Tests Test 08/27/18 03:40 White Blood Count 13.6 K/UL (4.8-10.8) H Red Blood Count 3.82 M/UL (4.20-5.40) L Hemoglobin 11.9 G/DL (12.0-16.0) L Hematocrit 36.8 % (37.0-47.0) L Mean Corpuscular Volume 96 FL (80-99) Mean Corpuscular Hemoglobin 31.3 PG (27.0-31.0) H Mean Corpuscular Hemoglobin Concent 32.5 G/DL (32.0-36.0) Red Cell Distribution Width 11.9 % (11.6-14.8) Platelet Count 381 K/UL (150-450) Mean Platelet Volume 6.4 FL (6.5-10.1) L Neutrophils (%) (Auto) 60.9 % (45.0-75.0) Lymphocytes (%) (Auto) 30.5 % (20.0-45.0) Monocytes (%) (Auto) 5.6 % (1.0-10.0) Eosinophils (%) (Auto) 2.1 % (0.0-3.0) Basophils (%) (Auto) 1.0 % (0.0-2.0) Erythrocyte Sedimentation Rate 58 MM/HR (0-30) H Sodium Level 143 MMOL/L (136-145) Potassium Level 4.2 MMOL/L (3.5-5.1) Chloride Level 105 MMOL/L (98-107) Carbon Dioxide Level 27 MMOL/L (21-32) Anion Gap 11 mmol/L (5-15) Blood Urea Nitrogen 39 mg/dL (7-18) H Creatinine 0.5 MG/DL (0.55-1.30) L Estimat Glomerular Filtration Rate > 60 mL/min (>60) Glucose Level 109 MG/DL (74-106) H Calcium Level 9.8 MG/DL (8.5-10.1) Phosphorus Level 4.1 MG/DL (2.5-4.9) Magnesium Level 2.1 MG/DL (1.8-2.4) Total Bilirubin 0.2 MG/DL (0.2-1.0) Aspartate Amino Transf (AST/SGOT) 6 U/L (15-37) L Alanine Aminotransferase (ALT/SGPT) 30 U/L (12-78) Alkaline Phosphatase 74 U/L (46-116) C-Reactive Protein, Quantitative 1.1 mg/dL (0.00-0.90) H Total Protein 8.1 G/DL (6.4-8.2) Albumin 3.3 G/DL (3.4-5.0) L Globulin 4.8 g/dL Albumin/Globulin Ratio 0.7 (1.0-2.7) L Curtsi Mcgovern MD Aug 27, 2018 11:36
--- NOTE | 2018-08-27 11:56 | Infectious Diseases Prog Note ---
Assessment/Plan Assessment/Plan Assessment: PNA -08/18 CXR: Interim partial improvement of left basilar infiltrate, over 3 days -CTA chest: No evidence of pulmonary embolism. Bronchiectasis with mild volume loss and consolidation in the left lower lobe, which may suggest atelectasis versus pneumonia. Small layering left pleural effusion. -sp cx MDR ABC (I Ceftazidime; S Amikacin), PsA (arce S) -influenza sc neg -CXR: Opacity in the left lung base which may represent pleural effusion and atelectasis. Pneumonia is not excluded. 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 chronic trach and peg HLD HTN bed bound SNF resident Plan: -Continue IV Amikacin and INH colistin #9/10 for MDR ABC and Tigecycline #2/5-7 given leukocytosis (double coverage for MDR ABC) -08/24 SP Zosyn # 8 -08/18 SP IV Vancomycin #2 -08/16 SP Zosyn x1 -f/u Bcx x2, u/a w/ reflex -f.u cx -Monitor CBC/CMP, temperatures -aspiration precautions -PEG/Trach care -cdiff if diarrhea Subjective Allergies: Coded Allergies: MILK (Verified Allergy, Unknown, 08/16/18) Subjective afebrile wbc remains b/t 12-14 Cr 0.5 Bcx NTD fio2 40% Objective Vital Signs Last 24 Hour Vital Signs Date Time Temp Pulse Resp B/P (MAP) Pulse Ox O2 Delivery O2 Flow Rate FiO2 08/27/18 11:17 56 16 40 08/27/18 09:52 69 121/74 08/27/18 09:34 69 16 100 Mechanical Ventilator 40 08/27/18 09:09 69 21 100 Mechanical Ventilator 40 08/27/18 09:07 63 21 40 08/27/18 08:00 97.9 59 20 121/74 (90) 100 08/27/18 07:33 68 21 40 08/27/18 06:00 125/71 08/27/18 05:29 64 1 40 40 08/27/18 04:00 40 08/27/18 04:00 Mechanical Ventilator 08/27/18 04:00 97.5 65 17 125/71 (89) 100 08/27/18 03:25 57 08/27/18 02:53 60 16 40 40 08/27/18 00:38 79 17 40 40 08/27/18 00:00 97.5 63 17 126/84 (98) 100 08/27/18 00:00 Mechanical Ventilator 08/26/18 23:25 62 08/26/18 23:23 152/84 08/26/18 23:09 61 16 100 Mechanical Ventilator 40 08/26/18 23:02 57 16 40 40 08/26/18 22:59 57 16 100 Mechanical Ventilator 40 08/26/18 21:04 67 17 40 40 08/26/18 20:00 Mechanical Ventilator 08/26/18 20:00 97.7 72 16 152/84 (106) 100 08/26/18 20:00 40 08/26/18 19:28 61 08/26/18 19:25 60 17 40 40 08/26/18 18:31 116/69 08/26/18 17:15 68 18 40 08/26/18 16:00 Mechanical Ventilator 08/26/18 16:00 40 08/26/18 16:00 98.2 57 16 116/69 (85) 100 08/26/18 16:00 54 08/26/18 15:28 98.4 08/26/18 14:45 124/78 08/26/18 14:40 63 16 40 08/26/18 13:00 66 16 40 08/26/18 12:00 40 08/26/18 12:00 53 08/26/18 12:00 Mechanical Ventilator 08/26/18 12:00 98.4 67 16 124/78 (93) 100 08/26/18 11:51 60 113/71 Height (Feet): 5 Height (Inches): 4.00 Weight (Pounds): 186 Objective HEENT: Pupils were round, equal, and reactive to light. Sclerae was white. . ENT, mucous membranes were not dehydrated. NECK: Supple. There was no goiter. No mass. No lymphadenopathy. There was no JVD. No bruits. LUNGS: Clear with decreased breath sounds in both bases, more on the left than on the right. HEART: There was normal S1 and normal S2. There was no murmur. No arrhythmia. No S3. No S4. No pericardial rub. ABDOMEN: Soft. Nontender without organomegaly. There were no masses palpable. Normal bowel sounds without bruits. There was no guarding. No rebound tenderness. No ascites. EXTREMITIES: No cyanosis, no clubbing, and no edema. Extremities were warm. Microbiology Date/Time Source Procedure Growth Status 08/24/18 16:56 Blood Blood Culture - Preliminary NO GROWTH AFTER 48 HOURS Resulted 08/24/18 16:50 Blood Blood Culture - Preliminary NO GROWTH AFTER 48 HOURS Resulted Laboratory Tests Test 08/27/18 03:40 White Blood Count 13.6 K/UL (4.8-10.8) H Red Blood Count 3.82 M/UL (4.20-5.40) L Hemoglobin 11.9 G/DL (12.0-16.0) L Hematocrit 36.8 % (37.0-47.0) L Mean Corpuscular Volume 96 FL (80-99) Mean Corpuscular Hemoglobin 31.3 PG (27.0-31.0) H Mean Corpuscular Hemoglobin Concent 32.5 G/DL (32.0-36.0) Red Cell Distribution Width 11.9 % (11.6-14.8) Platelet Count 381 K/UL (150-450) Mean Platelet Volume 6.4 FL (6.5-10.1) L Neutrophils (%) (Auto) 60.9 % (45.0-75.0) Lymphocytes (%) (Auto) 30.5 % (20.0-45.0) Monocytes (%) (Auto) 5.6 % (1.0-10.0) Eosinophils (%) (Auto) 2.1 % (0.0-3.0) Basophils (%) (Auto) 1.0 % (0.0-2.0) Erythrocyte Sedimentation Rate 58 MM/HR (0-30) H Sodium Level 143 MMOL/L (136-145) Potassium Level 4.2 MMOL/L (3.5-5.1) Chloride Level 105 MMOL/L (98-107) Carbon Dioxide Level 27 MMOL/L (21-32) Anion Gap 11 mmol/L (5-15) Blood Urea Nitrogen 39 mg/dL (7-18) H Creatinine 0.5 MG/DL (0.55-1.30) L Estimat Glomerular Filtration Rate > 60 mL/min (>60) Glucose Level 109 MG/DL (74-106) H Calcium Level 9.8 MG/DL (8.5-10.1) Phosphorus Level 4.1 MG/DL (2.5-4.9) Magnesium Level 2.1 MG/DL (1.8-2.4) Total Bilirubin 0.2 MG/DL (0.2-1.0) Aspartate Amino Transf (AST/SGOT) 6 U/L (15-37) L Alanine Aminotransferase (ALT/SGPT) 30 U/L (12-78) Alkaline Phosphatase 74 U/L (46-116) C-Reactive Protein, Quantitative 1.1 mg/dL (0.00-0.90) H Total Protein 8.1 G/DL (6.4-8.2) Albumin 3.3 G/DL (3.4-5.0) L Globulin 4.8 g/dL Albumin/Globulin Ratio 0.7 (1.0-2.7) L Current Medications Medications (Trade) Dose Ordered Sig/Marzena Route PRN Reason Start Time Stop Time Status Last Admin Dose Admin Acetaminophen (Tylenol) 650 mg Q4H PRN GT FEVER/PAIN 08/26/18 20:20 09/15/18 20:19 08/26/18 20:27 Albuterol/ Ipratropium (Albuterol/ Ipratropium) 3 ml Q4HRT PRN HHN Shortness of Breath 08/22/18 13:45 08/27/18 13:44 08/25/18 12:59 Amikacin Protocol (Amikacin pharmacy to dose) 1 ea DAILY PRN MISC Per rx protocol 08/19/18 12:45 09/18/18 12:44 Amikacin Sulfate 1000 mg/Sodium Chloride 114 ml @ 114 mls/hr Q24H IV 08/25/18 16:00 09/01/18 15:59 08/26/18 16:37 Amlodipine Besylate (Norvasc) 5 mg DAILY GT 08/17/18 09:00 09/16/18 08:59 08/27/18 09:52 Colistimethate Sodium (Colistin *inhalation use only*) 150 mg Q12HR@10,22 INH 08/19/18 22:00 08/28/18 23:59 08/27/18 09:08 Dextrose (Dextrose 50%) 25 ml Q30M PRN IV Hypoglycemia 08/16/18 16:00 09/15/18 15:59 Dextrose (Dextrose 50%) 50 ml Q30M PRN IV Hypoglycemia 08/16/18 16:00 09/15/18 15:59 Gentamicin Sulfate (Garamycin 0.3% Opt Soln) 1 drop TID LEFT EYE 08/23/18 18:00 09/02/18 13:01 08/27/18 09:51 Heparin Sodium (Porcine) (Heparin 5000 units/ml) 5,000 units EVERY 12 HOURS SUBQ 08/16/18 21:00 09/15/18 20:59 08/27/18 09:54 Hydralazine HCl (Apresoline) 10 mg EVERY 6 HOURS GT 08/16/18 18:00 09/15/18 17:59 08/26/18 23:23 Insulin Aspart (NovoLOG) Q6HR SUBQ 08/16/18 18:00 09/15/18 17:59 08/26/18 18:26 Lactulose (Cephulac) 20 gm TWICE A DAY GT 08/16/18 18:00 09/15/18 17:59 08/27/18 09:52 Lansoprazole (Prevacid) 30 mg DAILY GT 08/20/18 09:00 09/19/18 08:59 08/27/18 09:51 Ondansetron HCl (Zofran) 4 mg Q6H PRN IVP Nausea & Vomiting 08/16/18 14:00 09/15/18 13:59 Polyethylene Glycol (Miralax) 17 gm DAILYPRN PRN GT Constipation 08/16/18 14:00 09/15/18 13:59 08/16/18 21:09 Tigecycline 50 mg/ Sodium Chloride 110 ml @ 220 mls/hr Q12HR IVPB 08/26/18 23:00 09/02/18 22:59 08/27/18 10:43 Yeny Webb M.D. Aug 27, 2018 11:56
[2018-08-27 12:00] VITALS: BP 125/75
--- NOTE | 2018-08-27 12:00 | NUR ---
NURSE NOTES: Pt stable,oral/tracheal secretions suctioned PRN,turned and repositioned.
--- NOTE | 2018-08-27 13:52 | NUR ---
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 98.4 HR 57 RR 16 B/P 125/75 BUN 31 WBC 13.6 ESR 58 IS; TYGACIL IV AMIKACIN IV COLISTIN INH HEPARIN SUBC STEP DOWN STATUS
[2018-08-27 16:00] VITALS: BP 124/76
[2018-08-27] MEDS: Amikacin 1,000 MG in NS 110 ML IV SCH (16:03)
--- NOTE | 2018-08-27 16:22 | NUR ---
*-* INSURANCE *-* UPDATED CLINICALS HAVE BEEN FAXED TO: [facility]W [facility] @ [phone] [facility] WILL TRACK THIS ADMISSION NO DIRECTOR OF RESIDENTIAL SERVICES ASSIGNED AT THIS TIME. PLEASE FAX THE REVIEW/CLINICAL P- [phone] f- [phone]
--- NOTE | 2018-08-27 19:36 | NUR ---
HAND-OFF: Report given to Emma Urena/Juanjo Feliciano RN.
--- NOTE | 2018-08-27 19:45 | NUR ---
NURSE NOTES: Received patient from Cathy RN. Patient is awake. radiation monitor is on. Receiving oxygen via Portex 7 with settings AC 16, TV 500, FiO2 40%, PEEP 5. Patient's G Tube feeding is held from 6pm to 10pm, to continue Vital 1.2 at 65cc/hr. Pure wick is patent and set to suction. IV site is left hand 24g, patent and asymptomatic. Bed is locked, placed in lowest position, padded side for seizure precaution, side rails up x3, call light is within reach. All needs attended to, safety measures continued, will continue to monitor.
[2018-08-27 20:00] VITALS: BP 127/71
[2018-08-28] VITALS: BP 98/61
[2018-08-28 04:00] VITALS: BP 123/65
[2018-08-28 05:33] LABS: BASOPHILS % (AUTO) 0.8 % (0.0-2.0); EOSINOPHILS % (AUTO) 1.7 % (0.0-3.0); HEMATOCRIT 37.6 % (37.0-47.0); HEMOGLOBIN 12.3 G/DL (12.0-16.0); LYMPHOCYTES % (AUTO) 22.9 % (20.0-45.0); MEAN CORPUSCULAR VOLUME 94 FL (80-99); MONOCYTES % (AUTO) 6.8 % (1.0-10.0); NEUTROPHILS % (AUTO) 67.9 % (45.0-75.0); PLATELET COUNT 378 K/UL (150-450); RED BLOOD COUNT 3.98 M/UL (4.20-5.40)
[2018-08-28 05:45] LABS: ANION GAP 11 mmol/L (5-15); BLOOD UREA NITROGEN 36 mg/dL (7-18); CALCIUM 9.8 MG/DL (8.5-10.1); CARBON DIOXIDE 27 MMOL/L (21-32); CHLORIDE 105 MMOL/L (98-107); CREATININE 0.5 MG/DL (0.55-1.30); POTASSIUM 3.6 MMOL/L (3.5-5.1); SODIUM 142 MMOL/L (136-145)
[2018-08-28] MEDS: NovoLOG Insulin Flexpen SUBQ SCH ×4 (06:02→23:38)
[2018-08-28] MEDS: HydrALAZINE 10mg Tab GT SCH ×5 (06:02→23:37)
--- NOTE | 2018-08-28 07:10 | NUR ---
HAND-OFF: Report given to Jeana Dempsey RN.
--- NOTE | 2018-08-28 07:11 | NUR ---
NURSE NOTES: Received pt from AUGIE Steve in stable condition. Pt is awake in bed AAOx3 with no cardiopulmonary distress. Pt is trach to vent Portex 7 AC 16 TV 500 FiO2 40% Peep 5. GT noted running Vital AF 1.2 at 65 cc/hr. Purewick noted. Skin intact. L hand 24g IV noted and patent. Pt is refusing SCDs at this time. Side rails padded for seizure precaution. Bed is in lowest position and alarm on, side rails up x 3, call light within reach. Will continue to monitor pt.
[2018-08-28 07:54] VITALS: BP 138/76
[2018-08-28] MEDS: Gentamicin 0.3% Opth Soln 5ml LEFT EYE SCH ×3 (07:56→18:10)
[2018-08-28] MEDS: Artificial Tears 1.4% Op Soln BOTH EYES PRN (07:57)
[2018-08-28] MEDS: [UNRECOGNIZED DRUG - OTHER] IVPB SCH ×4 (08:06→21:04)
[2018-08-28] MEDS: Heparin 5000 units/ml inj SUBQ SCH ×2 (08:11→21:07)
[2018-08-28] MEDS: Lactulose 20gm/30ml UDC GT SCH ×2 (08:12→18:10)
[2018-08-28] MEDS: Colistin for inhalation INH SCH ×2 (10:19→21:31)
--- NOTE | 2018-08-28 10:48 | Pulmonolgy Critical Care Note ---
Critical Care - Asmt/Plan Problems: (1) Acute on chronic respiratory failure (2) Nosocomial pneumonia (3) Cardiac arrest (4) Feeding by G-tube (5) Sepsis Respiratory: monitor respiratory rate, adjust FIO2, CXR Cardiac: continue to monitor HR/BP Renal: F/U I&O Infectious Disease: check cultures, continue antibiotics Gastrointestinal: hold feedings Endocrine: check HgA1C Hematologic: transfuse if hgb<8.5 Neurologic: PRN Morphine, keep patient comfortable Prophylaxis: Protonix Disposition: keep in ICU Notes Reviewed: cardio Discussed with: nurses, consultants, immigration case managermanager benefit - Objective Last 24 Hour Vital Signs Date Time Temp Pulse Resp B/P (MAP) Pulse Ox O2 Delivery O2 Flow Rate FiO2 08/28/18 10:32 59 16 100 Mechanical Ventilator 40 08/28/18 10:21 59 19 100 Mechanical Ventilator 40 08/28/18 09:20 57 21 40 08/28/18 08:06 54 138/76 08/28/18 08:00 40 08/28/18 08:00 Mechanical Ventilator 08/28/18 08:00 53 08/28/18 07:54 98.2 54 19 138/76 (96) 100 08/28/18 07:22 59 19 40 08/28/18 06:02 117/68 08/28/18 05:18 70 21 40 08/28/18 04:00 40 08/28/18 04:00 Mechanical Ventilator 08/28/18 04:00 98.2 52 17 123/65 (84) 100 08/28/18 03:32 57 08/28/18 03:20 62 22 40 08/28/18 01:21 59 16 40 08/28/18 00:00 98/61 08/28/18 00:00 Mechanical Ventilator 08/28/18 00:00 97.5 54 16 98/61 (73) 100 08/27/18 23:35 52 08/27/18 22:54 55 16 100 Mechanical Ventilator 40 08/27/18 22:44 52 16 100 Mechanical Ventilator 40 08/27/18 22:44 54 16 40 08/27/18 20:00 97.2 59 16 127/71 (89) 100 08/27/18 20:00 40 08/27/18 20:00 Mechanical Ventilator 08/27/18 19:14 60 16 40 08/27/18 19:06 57 08/27/18 17:45 124/76 08/27/18 17:12 60 21 40 08/27/18 16:00 54 08/27/18 16:00 40 08/27/18 16:00 Mechanical Ventilator 08/27/18 16:00 98.8 62 16 124/76 (92) 100 08/27/18 14:43 58 16 40 08/27/18 13:00 62 17 40 08/27/18 12:39 125/75 08/27/18 12:00 40 08/27/18 12:00 Mechanical Ventilator 08/27/18 12:00 98.4 57 16 125/75 (92) 100 08/27/18 11:49 66 08/27/18 11:17 56 16 40 Status: awake Neck: full ROM Lungs: chest wall tender Heart: regular Abdomen: non-tender, feeding tube Extremities: edema Accucheck: 118 Critical Care - Subjective ROS Limited/Unobtainable: No Condition: critical EKG Rhythm: Sinus Rhythm FI02: 40 Vent Support Breath Rate: 16 Vent Support Mode: AC Vent Tidal Volume: 500 Sputum Amount: Scant PEEP: 5.0 PIP: 24 Tube Feeding Amount: 65 I&O: Intake and Output 08/27/18 08/28/18 18:59 06:59 Intake Total 1160 ml 630 ml Output Total 600 ml 250 ml Balance 560 ml 380 ml Intake Free Water 200 ml IV Total 110 ml Tube Feeding 780 ml 520 ml Other 180 ml Output Urine Total 600 ml 250 ml # Bowel Movements 3 Labs: Laboratory Tests Test 08/28/18 03:45 White Blood Count 17.0 K/UL (4.8-10.8) H Red Blood Count 3.98 M/UL (4.20-5.40) L Hemoglobin 12.3 G/DL (12.0-16.0) Hematocrit 37.6 % (37.0-47.0) Mean Corpuscular Volume 94 FL (80-99) Mean Corpuscular Hemoglobin 31.0 PG (27.0-31.0) Mean Corpuscular Hemoglobin Concent 32.8 G/DL (32.0-36.0) Red Cell Distribution Width 12.0 % (11.6-14.8) Platelet Count 378 K/UL (150-450) Mean Platelet Volume 7.0 FL (6.5-10.1) Neutrophils (%) (Auto) 67.9 % (45.0-75.0) Lymphocytes (%) (Auto) 22.9 % (20.0-45.0) Monocytes (%) (Auto) 6.8 % (1.0-10.0) Eosinophils (%) (Auto) 1.7 % (0.0-3.0) Basophils (%) (Auto) 0.8 % (0.0-2.0) Sodium Level 142 MMOL/L (136-145) Potassium Level 3.6 MMOL/L (3.5-5.1) Chloride Level 105 MMOL/L (98-107) Carbon Dioxide Level 27 MMOL/L (21-32) Anion Gap 11 mmol/L (5-15) Blood Urea Nitrogen 36 mg/dL (7-18) H Creatinine 0.5 MG/DL (0.55-1.30) L Estimat Glomerular Filtration Rate > 60 mL/min (>60) Glucose Level 98 MG/DL (74-106) Calcium Level 9.8 MG/DL (8.5-10.1) Curtis Mcgovern MD Aug 28, 2018 10:48
--- NOTE | 2018-08-28 11:27 | NUR ---
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
[2018-08-28 12:00] VITALS: BP 131/74
--- NOTE | 2018-08-28 12:37 | Infectious Diseases Prog Note ---
Assessment/Plan Assessment/Plan Assessment: PNA -08/18 CXR: Interim partial improvement of left basilar infiltrate, over 3 days -CTA chest: No evidence of pulmonary embolism. Bronchiectasis with mild volume loss and consolidation in the left lower lobe, which may suggest atelectasis versus pneumonia. Small layering left pleural effusion. -sp cx MDR ABC (I Ceftazidime; S Amikacin), PsA (arce S); 08/24 sp cx S.marcenses (R ancef otherwise S) -influenza sc neg -CXR: Opacity in the left lung base which may represent pleural effusion and atelectasis. Pneumonia is not excluded. Low grade fever x1, SP Leukocytosis, increased -08/24 u/a neg -Bcx NTD -u/a neg Lactic acidosis, SP hx of cardiac arrest hx of cerebral hemorrhage c/w aphasia and R hemiplegia chronic trach and peg HLD HTN bed bound SNF resident Plan: -Continue IV Amikacin and INH colistin #10/10 for MDR ABC and Tigecycline #08/04- 7 given leukocytosis (double coverage for MDR ABC) -08/24 SP Zosyn # 8 -08/18 SP IV Vancomycin #2 -08/16 SP Zosyn x1 -Repeat cultuers, Cdiff -f.u cx -Monitor CBC/CMP, temperatures -aspiration precautions -PEG/Trach care -CBC, CMP, amylase, lipase, CXR am Discussed with RN. Subjective Allergies: Coded Allergies: MILK (Verified Allergy, Unknown, 08/16/18) Subjective afebrile wbc increased Cr 0.5 Bcx NTD fio2 40% Objective Vital Signs Last 24 Hour Vital Signs Date Time Temp Pulse Resp B/P (MAP) Pulse Ox O2 Delivery O2 Flow Rate FiO2 08/28/18 12:00 98.8 60 17 131/74 (93) 100 08/28/18 11:01 59 19 40 08/28/18 10:32 59 16 100 Mechanical Ventilator 40 08/28/18 10:21 59 19 100 Mechanical Ventilator 40 08/28/18 09:20 57 21 40 08/28/18 08:06 54 138/76 08/28/18 08:00 40 08/28/18 08:00 Mechanical Ventilator 08/28/18 08:00 53 08/28/18 07:54 98.2 54 19 138/76 (96) 100 08/28/18 07:22 59 19 40 08/28/18 06:02 117/68 08/28/18 05:18 70 21 40 08/28/18 04:00 40 08/28/18 04:00 Mechanical Ventilator 08/28/18 04:00 98.2 52 17 123/65 (84) 100 08/28/18 03:32 57 08/28/18 03:20 62 22 40 08/28/18 01:21 59 16 40 08/28/18 00:00 98/61 08/28/18 00:00 Mechanical Ventilator 08/28/18 00:00 97.5 54 16 98/61 (73) 100 08/27/18 23:35 52 08/27/18 22:54 55 16 100 Mechanical Ventilator 40 08/27/18 22:44 52 16 100 Mechanical Ventilator 40 08/27/18 22:44 54 16 40 08/27/18 20:00 97.2 59 16 127/71 (89) 100 08/27/18 20:00 40 08/27/18 20:00 Mechanical Ventilator 08/27/18 19:14 60 16 40 08/27/18 19:06 57 08/27/18 17:45 124/76 08/27/18 17:12 60 21 40 08/27/18 16:00 54 08/27/18 16:00 40 08/27/18 16:00 Mechanical Ventilator 08/27/18 16:00 98.8 62 16 124/76 (92) 100 08/27/18 14:43 58 16 40 08/27/18 13:00 62 17 40 08/27/18 12:39 125/75 Height (Feet): 5 Height (Inches): 4.00 Weight (Pounds): 186 Objective HEENT: Pupils were round, equal, and reactive to light. Sclerae was white. . ENT, mucous membranes were not dehydrated. NECK: Supple. There was no goiter. No mass. No lymphadenopathy. There was no JVD. No bruits. LUNGS: Clear with decreased breath sounds in both bases, more on the left than on the right. HEART: There was normal S1 and normal S2. There was no murmur. No arrhythmia. No S3. No S4. No pericardial rub. ABDOMEN: Soft. Nontender without organomegaly. There were no masses palpable. Normal bowel sounds without bruits. There was no guarding. No rebound tenderness. No ascites. EXTREMITIES: No cyanosis, no clubbing, and no edema. Extremities were warm. Laboratory Tests Test 08/28/18 03:45 White Blood Count 17.0 K/UL (4.8-10.8) H Red Blood Count 3.98 M/UL (4.20-5.40) L Hemoglobin 12.3 G/DL (12.0-16.0) Hematocrit 37.6 % (37.0-47.0) Mean Corpuscular Volume 94 FL (80-99) Mean Corpuscular Hemoglobin 31.0 PG (27.0-31.0) Mean Corpuscular Hemoglobin Concent 32.8 G/DL (32.0-36.0) Red Cell Distribution Width 12.0 % (11.6-14.8) Platelet Count 378 K/UL (150-450) Mean Platelet Volume 7.0 FL (6.5-10.1) Neutrophils (%) (Auto) 67.9 % (45.0-75.0) Lymphocytes (%) (Auto) 22.9 % (20.0-45.0) Monocytes (%) (Auto) 6.8 % (1.0-10.0) Eosinophils (%) (Auto) 1.7 % (0.0-3.0) Basophils (%) (Auto) 0.8 % (0.0-2.0) Sodium Level 142 MMOL/L (136-145) Potassium Level 3.6 MMOL/L (3.5-5.1) Chloride Level 105 MMOL/L (98-107) Carbon Dioxide Level 27 MMOL/L (21-32) Anion Gap 11 mmol/L (5-15) Blood Urea Nitrogen 36 mg/dL (7-18) H Creatinine 0.5 MG/DL (0.55-1.30) L Estimat Glomerular Filtration Rate > 60 mL/min (>60) Glucose Level 98 MG/DL (74-106) Calcium Level 9.8 MG/DL (8.5-10.1) Current Medications Medications (Trade) Dose Ordered Sig/Marzena Route PRN Reason Start Time Stop Time Status Last Admin Dose Admin Acetaminophen (Tylenol) 650 mg Q4H PRN GT FEVER/PAIN 08/26/18 20:20 09/15/18 20:19 08/26/18 20:27 Amikacin Protocol (Amikacin pharmacy to dose) 1 ea DAILY PRN MISC Per rx protocol 08/19/18 12:45 09/18/18 12:44 Amikacin Sulfate 1000 mg/Sodium Chloride 114 ml @ 114 mls/hr Q24H IV 08/25/18 16:00 09/01/18 15:59 08/27/18 16:03 Amlodipine Besylate (Norvasc) 5 mg DAILY GT 08/17/18 09:00 09/16/18 08:59 08/28/18 08:06 Artificial Tears (Akwa-Tears) 2 drop Q4H PRN BOTH EYES Dry Eyes 08/28/18 00:30 09/27/18 00:29 08/28/18 07:57 Colistimethate Sodium (Colistin *inhalation use only*) 150 mg Q12HR@10,22 INH 08/19/18 22:00 08/28/18 23:59 08/28/18 10:19 Dextrose (Dextrose 50%) 25 ml Q30M PRN IV Hypoglycemia 08/16/18 16:00 09/15/18 15:59 Dextrose (Dextrose 50%) 50 ml Q30M PRN IV Hypoglycemia 08/16/18 16:00 09/15/18 15:59 Gentamicin Sulfate (Garamycin [facility]) 1 drop TID LEFT EYE 08/23/18 18:00 09/02/18 13:01 08/28/18 07:56 Heparin Sodium (Porcine) (Heparin 5000 units/ml) 5,000 units EVERY 12 HOURS SUBQ 08/16/18 21:00 09/15/18 20:59 08/28/18 08:11 Hydralazine HCl (Apresoline) 10 mg EVERY 6 HOURS GT 08/16/18 18:00 09/15/18 17:59 08/28/18 06:02 Insulin Aspart (NovoLOG) Q6HR SUBQ 08/16/18 18:00 09/15/18 17:59 08/28/18 06:02 Lactulose (Cephulac) 20 gm TWICE A DAY GT 08/16/18 18:00 09/15/18 17:59 08/28/18 08:12 Lansoprazole (Prevacid) 30 mg DAILY GT 08/20/18 09:00 09/19/18 08:59 08/28/18 08:06 Mometasone Furoate (Elocon) 1 applic DAILY PRN TOPIC Itching/Pruritis 08/28/18 00:30 09/27/18 00:29 08/28/18 08:05 Ondansetron HCl (Zofran) 4 mg Q6H PRN IVP Nausea & Vomiting 08/16/18 14:00 09/15/18 13:59 Polyethylene Glycol (Miralax) 17 gm DAILYPRN PRN GT Constipation 08/16/18 14:00 09/15/18 13:59 08/16/18 21:09 Tigecycline 50 mg/ Sodium Chloride 110 ml @ 220 mls/hr Q12HR IVPB 08/26/18 23:00 09/02/18 22:59 08/28/18 08:06 Yeny Webb M.D. Aug 28, 2018 12:37
[2018-08-28 16:00] VITALS: BP 141/75
[2018-08-28] MEDS: Amikacin 1,000 MG in NS 110 ML IV SCH (16:10)
--- NOTE | 2018-08-28 16:42 | Consultation ---
History of Present Illness General Chief Complaint: Chest Pain Present Illness Allergies: Coded Allergies: MILK (Verified Allergy, Unknown, 08/16/18) Medication History Scheduled Amino Acids/Protein Hydrolys (Pro-Stat Liquid), 30 ML GT DAILY, (Reported) Amlodipine Besylate (Norvasc), 5 MG GT DAILY, (Reported) Atorvastatin Calcium* (Atorvastatin Calcium*), 10 MG GT BEDTIME, (Reported) Cephalexin* (Keflex*), 500 MG ORAL TID Cran/Vitc/Mannose/Inulin/Brom (Uti-Stat Liquid), 3,875 MG GT TWICE A DAY, ( Reported) Docusate Sodium* (Colace*), 100 MG GT DAILY, (Reported) Ergocalciferol (Vitamin D2)* (Vitamin D*), 50,000 UNIT GT ONCE A WEEK, (Reported ) Famotidine (Famotidine), 20 MG GT TWICE A DAY, (Reported) Hydralazine Hcl* (Hydralazine Hcl*), 10 MG GT EVERY 6 HOURS, (Reported) Lactobacillus Acidophilus/Pect (Acidophilus-Pectin Tab Chew), 1 EACH GT DAILY, ( Reported) Lactulose (Lactulose*), 30 ML ORAL BID Lactulose (Lactulose*), 30 ML GT TWICE A DAY, (Reported) Levetiracetam (Keppra), 5 ML GT Q12HR, (Reported) Multivitamin With Minerals (Multivitamins With Minerals*), 1 TAB GT DAILY, ( Reported) Na Phos,M-B/Na Phos,Di-Ba* (Fleet Enema*), 133 ML RECTAL PRN, (Reported) Polymyxin/Trimethoprim (Polytrim Eye Drops), 2 DROP OPHTHALM THREE TIMES A DAY Promethazine Hcl (Promethazine Hcl*), 5 ML GT Q6H, (Reported) Scheduled PRN Albuterol Sulfate* (Albuterol Sulfate Hhn*), 3 ML INH Q4H PRN for Shortness of Breath, (Reported) Ibuprofen* (Motrin*), 400 MG GT Q6H PRN for For Pain, (Reported) Miscellaneous Medications Chlorhexidine Gluconate* (Hibiclens*), 15 ML ORAL, (Reported) Dextran 70/Hypromellose (Artificial Tears Eye Drops*), 2 DROP BOTH EYES, ( Reported) Patient History Healthcare decision maker Resuscitation status Full Code Advanced Directive on File Physical Exam Last 24 Hour Vital Signs Date Time Temp Pulse Resp B/P (MAP) Pulse Ox O2 Delivery O2 Flow Rate FiO2 08/28/18 16:00 40 08/28/18 16:00 Mechanical Ventilator 08/28/18 14:30 67 20 40 08/28/18 13:25 63 20 40 08/28/18 12:30 131/74 08/28/18 12:00 98.8 60 17 131/74 (93) 100 08/28/18 12:00 Mechanical Ventilator 08/28/18 12:00 40 08/28/18 11:43 63 08/28/18 11:01 59 19 40 08/28/18 10:32 59 16 100 Mechanical Ventilator 40 08/28/18 10:21 59 19 100 Mechanical Ventilator 40 08/28/18 09:20 57 21 40 08/28/18 08:06 54 138/76 08/28/18 08:00 40 08/28/18 08:00 Mechanical Ventilator 08/28/18 08:00 53 08/28/18 07:54 98.2 54 19 138/76 (96) 100 08/28/18 07:22 59 19 40 08/28/18 06:02 117/68 08/28/18 05:18 70 21 40 08/28/18 04:00 40 08/28/18 04:00 Mechanical Ventilator 08/28/18 04:00 98.2 52 17 123/65 (84) 100 08/28/18 03:32 57 08/28/18 03:20 62 22 40 08/28/18 01:21 59 16 40 08/28/18 00:00 98/61 08/28/18 00:00 Mechanical Ventilator 08/28/18 00:00 97.5 54 16 98/61 (73) 100 08/27/18 23:35 52 08/27/18 22:54 55 16 100 Mechanical Ventilator 40 08/27/18 22:44 52 16 100 Mechanical Ventilator 40 08/27/18 22:44 54 16 40 08/27/18 20:00 97.2 59 16 127/71 (89) 100 08/27/18 20:00 40 08/27/18 20:00 Mechanical Ventilator 08/27/18 19:14 60 16 40 08/27/18 19:06 57 08/27/18 17:45 124/76 08/27/18 17:12 60 21 40 Intake and Output 08/27/18 08/28/18 18:59 06:59 Intake Total 1160 ml 630 ml Output Total 600 ml 250 ml Balance 560 ml 380 ml Intake Free Water 200 ml IV Total 110 ml Tube Feeding 780 ml 520 ml Other 180 ml Output Urine Total 600 ml 250 ml # Bowel Movements 3 Laboratory Tests Test 08/28/18 03:45 White Blood Count 17.0 K/UL (4.8-10.8) H Red Blood Count 3.98 M/UL (4.20-5.40) L Hemoglobin 12.3 G/DL (12.0-16.0) Hematocrit 37.6 % (37.0-47.0) Mean Corpuscular Volume 94 FL (80-99) Mean Corpuscular Hemoglobin 31.0 PG (27.0-31.0) Mean Corpuscular Hemoglobin Concent 32.8 G/DL (32.0-36.0) Red Cell Distribution Width 12.0 % (11.6-14.8) Platelet Count 378 K/UL (150-450) Mean Platelet Volume 7.0 FL (6.5-10.1) Neutrophils (%) (Auto) 67.9 % (45.0-75.0) Lymphocytes (%) (Auto) 22.9 % (20.0-45.0) Monocytes (%) (Auto) 6.8 % (1.0-10.0) Eosinophils (%) (Auto) 1.7 % (0.0-3.0) Basophils (%) (Auto) 0.8 % (0.0-2.0) Sodium Level 142 MMOL/L (136-145) Potassium Level 3.6 MMOL/L (3.5-5.1) Chloride Level 105 MMOL/L (98-107) Carbon Dioxide Level 27 MMOL/L (21-32) Anion Gap 11 mmol/L (5-15) Blood Urea Nitrogen 36 mg/dL (7-18) H Creatinine 0.5 MG/DL (0.55-1.30) L Estimat Glomerular Filtration Rate > 60 mL/min (>60) Glucose Level 98 MG/DL (74-106) Calcium Level 9.8 MG/DL (8.5-10.1) Height (Feet): 5 Height (Inches): 4.00 Weight (Pounds): 186 Medications Current Medications Medications (Trade) Dose Ordered Sig/Marzena Route PRN Reason Start Time Stop Time Status Last Admin Dose Admin Acetaminophen (Tylenol) 650 mg Q4H PRN GT FEVER/PAIN 08/26/18 20:20 09/15/18 20:19 08/26/18 20:27 Amikacin Protocol (Amikacin pharmacy to dose) 1 ea DAILY PRN MISC Per rx protocol 08/19/18 12:45 09/18/18 12:44 Amikacin Sulfate 1000 mg/Sodium Chloride 114 ml @ 114 mls/hr Q24H IV 08/25/18 16:00 09/01/18 15:59 08/28/18 16:10 Amlodipine Besylate (Norvasc) 5 mg DAILY GT 08/17/18 09:00 09/16/18 08:59 08/28/18 08:06 Artificial Tears (Akwa-Tears) 2 drop Q4H PRN BOTH EYES Dry Eyes 08/28/18 00:30 09/27/18 00:29 08/28/18 07:57 Colistimethate Sodium (Colistin *inhalation use only*) 150 mg Q12HR@10,22 INH 08/19/18 22:00 08/28/18 23:59 08/28/18 10:19 Dextrose (Dextrose 50%) 25 ml Q30M PRN IV Hypoglycemia 08/16/18 16:00 09/15/18 15:59 Dextrose (Dextrose 50%) 50 ml Q30M PRN IV Hypoglycemia 08/16/18 16:00 09/15/18 15:59 Gentamicin Sulfate (Garamycin 0.3% Opth Soln) 1 drop TID LEFT EYE 08/23/18 18:00 09/02/18 13:01 08/28/18 12:31 Heparin Sodium (Porcine) (Heparin 5000 units/ml) 5,000 units EVERY 12 HOURS SUBQ 08/16/18 21:00 09/15/18 20:59 08/28/18 08:11 Hydralazine HCl (Apresoline) 10 mg EVERY 6 HOURS GT 08/16/18 18:00 09/15/18 17:59 08/28/18 12:30 Insulin Aspart (NovoLOG) Q6HR SUBQ 08/16/18 18:00 09/15/18 17:59 08/28/18 06:02 Lactulose (Cephulac) 20 gm TWICE A DAY GT 08/16/18 18:00 09/15/18 17:59 08/28/18 08:12 Lansoprazole (Prevacid) 30 mg DAILY GT 08/20/18 09:00 09/19/18 08:59 08/28/18 08:06 Mometasone Furoate (Elocon) 1 applic DAILY PRN TOPIC Itching/Pruritis 08/28/18 00:30 09/27/18 00:29 08/28/18 08:05 Ondansetron HCl (Zofran) 4 mg Q6H PRN IVP Nausea & Vomiting 08/16/18 14:00 09/15/18 13:59 Polyethylene Glycol (Miralax) 17 gm DAILYPRN PRN GT Constipation 08/16/18 14:00 09/15/18 13:59 08/16/18 21:09 Tigecycline 50 mg/ Sodium Chloride 110 ml @ 220 mls/hr Q12HR IVPB 08/26/18 23:00 09/02/18 22:59 08/28/18 08:06 Assessment/Plan Assessment/Plan Hematology Consult REQ MD: Karissa Fox DOS: 08/28/18 RFC: Leukocytosis, persistent ID [id number] y/o with hx of cardiac arrest, cerebral hemorrhage c/w aphasia and R hemiplegia, chronic trach and peg, HLD, HTN, bed bound, SNF resident presents to ED on 08/16 with chest pain and increasing SOB, tracheal secretions, nasal congestion and cough. CTA showed LLL infiltrate. Upon admission noted to be hypotensive, elevated lactate and leukocytosis. Admitted for past week now. Coded Allergies: MILK (Verified Allergy, Unknown, 08/16/18) Meds Scheduled Amino Acids/Protein Hydrolys (Pro-Stat Liquid), 30 ML GT DAILY, (Reported) Amlodipine Besylate (Norvasc), 5 MG GT DAILY, (Reported) Atorvastatin Calcium* (Atorvastatin Calcium*), 10 MG GT BEDTIME, (Reported) Cephalexin* (Keflex*), 500 MG ORAL TID Cran/Vitc/Mannose/Inulin/Brom (Uti-Stat Liquid), 3,875 MG GT TWICE A DAY, ( Reported) Docusate Sodium* (Colace*), 100 MG GT DAILY, (Reported) Ergocalciferol (Vitamin D2)* (Vitamin D*), 50,000 UNIT GT ONCE A WEEK, (Reported ) Famotidine (Famotidine), 20 MG GT TWICE A DAY, (Reported) Hydralazine Hcl* (Hydralazine Hcl*), 10 MG GT EVERY 6 HOURS, (Reported) Lactobacillus Acidophilus/Pect (Acidophilus-Pectin Tab Chew), 1 EACH GT DAILY, ( Reported) Lactulose (Lactulose*), 30 ML ORAL BID Lactulose (Lactulose*), 30 ML GT TWICE A DAY, (Reported) Levetiracetam (Keppra), 5 ML GT Q12HR, (Reported) Multivitamin With Minerals (Multivitamins With Minerals*), 1 TAB GT DAILY, ( Reported) Na Phos,M-B/Na Phos,Di-Ba* (Fleet Enema*), 133 ML RECTAL PRN, (Reported) Polymyxin/Trimethoprim (Polytrim Eye Drops), 2 DROP OPHTHALM THREE TIMES A DAY Promethazine Hcl (Promethazine Hcl*), 5 ML GT Q6H, (Reported) Scheduled PRN Albuterol Sulfate* (Albuterol Sulfate Hhn*), 3 ML INH Q4H PRN for Shortness of Breath, (Reported) Ibuprofen* (Motrin*), 400 MG GT Q6H PRN for For Pain, (Reported) Miscellaneous Medications Chlorhexidine Gluconate* (Hibiclens*), 15 ML ORAL, (Reported) Dextran 70/Hypromellose (Artificial Tears Eye Drops*), 2 DROP BOTH EYES, ( Reported) Patient History Healthcare decision maker Resuscitation status Full Code Advanced Directive on File Pmhx: as above Shx: She is . She was born in [place] and lived in [place] for many years. The patient denied any smoking, drinking or use of illicit drugs. Fhx non contributory All Other Systems: negative except mentioned in HPI PE HEENT: Pupils were round, equal, and reactive to light. Sclerae was white. . ENT, mucous membranes were not dehydrated. NECK: Supple. There was no goiter. No mass. ++ trach LUNGS: Clear with decreased breath sounds in both bases, more on the left than on the right. HEART: There was normal S1 and normal S2. There was no murmur. No arrhythmia. No S3. No S4. No pericardial rub. ABDOMEN: Soft. Nontender without organomegaly. ++ peg There was no guarding. No rebound tenderness. No ascites. EXTREMITIES: No cyanosis, no clubbing, and no edema. Extremities were warm. Assessment/Plan # Leukocytosis with likely pna, Opacity in the left lung base which may represent pleural effusion and atelectasis. Pneumonia is not excluded --> has not received steriods --> trend 12-->13-->17 --> smear reviewed, no major abnml noted --> on abx as per id --> per pulm/cc care as well # Anemia of chronic disease due to underlying chronic medical issues, multifactorial --> Anemia workup only if hgb <10 --> No evidence of hemolysis is noted, peripheral smear has been reviewed. --> Hgb goal >7. Transfuse prn. 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 Greatly appreciate consultation! Asael Raman MD Aug 28, 2018 16:42
--- NOTE | 2018-08-28 19:25 | NUR ---
HAND-OFF: Report given to AUGIE Chaidez. Pt in stable condition.
--- NOTE | 2018-08-28 19:38 | NUR ---
RESPIRATORY NOTE: Received pt on AC 16, 500VT, 40%, PEEP +5. Pt is trach-dependent w/ a cuffed, Portex 7 tube. Pt awake, follows commands w/ little reinforcements. B/S merlin rhonchi, sxn minimal amounts of thick/thin, frothy clear-white secretions. Family present at bedside. Vent plugged into red outlet, ambubag & spare trach kit at bedside. Pt in no apparent distress at this time. Will continue plan of care.
--- NOTE | 2018-08-28 19:45 | NUR ---
NURSE NOTES: Report received from Jeana Dempsey RN. Patient AOx2-3. Trach to vent on AC 16, VT 500, p 5 fio2 40%. Left hand 24G IV site patent and intact at this time. GT with feeding on hold at this time to be resumed @ 2200. Purewick connected to low intermittent suction at this time. Family at the bedside. Per Previous RN Sputum has been collected and was sent to the lab. urine is to be collected. patient denies any pain or discomfort at this time. Will continue to monitor.
[2018-08-28 20:00] VITALS: BP 116/69
--- NOTE | 2018-08-28 22:00 | NUR ---
NURSE NOTES: Resumed feeding at this time. patient able to make needs known with verbal gestures. No signs of distress noted. Will continue to monitor
[2018-08-29] VITALS: BP 122/67
--- NOTE | 2018-08-29 00:23 | NUR ---
NURSE NOTES: MD Fox at the bedside with orders for CT of abdomen and pelvis. patient to only get oral contrast.
[2018-08-29 02:43] LABS: APPEARANCE,URINE CLOUDY; BILIRUBIN, URINE NEGATIVE (NEGATIVE); GLUCOSE, URINE (UA) NEGATIVE (NEGATIVE); KETONES,URINE 1+ (NEGATIVE); LEUKOCYTE ESTERASE ,URINE 3+ (NEGATIVE); NITRITE,URINE NEGATIVE (NEGATIVE); PH,URINE 5 (4.5-8.0); PROTEIN,URINE 2+ (NEGATIVE); UROBILINOGEN,URINE NORMAL MG/DL (0.0-1.0)
--- NOTE | 2018-08-29 03:30 | Progress Note ---
DATE: 08/27/2018 NOTE: POOR AUDIO SUBJECTIVE: The patient is a 57-year-old lower lobe pneumonia. HISTORY OF PRESENT ILLNESS: The patient is a resident of an extended care facility. She has been in stable condition over the last several months. She is known to have several chronic medical syndrome, but has been stable on the current medication. On the day of admission, she developed hypotension with a fever, tachycardia, leukocytosis, and hypotension and was found care and was admitted. PAST MEDICAL HISTORY: The patient underwent tracheostomy and gastrostomy . ALLERGIES: No known drug allergies. MEDICATIONS: The patient is on 1 g IV piggyback, . IMPRESSION: The patient's condition is multifactorial, however, she fever, tachycardia, and leukocytosis, repeat laboratory tests will be done in the a.m. Karissa Fox M.D. DR: JENNIFER JOB#: [id number] CC:
[2018-08-29 04:00] VITALS: BP 141/73
[2018-08-29 04:07] LABS: COLOR,URINE YELLOW
[2018-08-29 04:35] LABS: EOSINOPHILS % (AUTO) 1.9 % (0.0-3.0); HEMATOCRIT 36.7 % (37.0-47.0); HEMOGLOBIN 12.4 G/DL (12.0-16.0); MEAN CORPUSCULAR VOLUME 94 FL (80-99); MONOCYTES % (AUTO) 5.6 % (1.0-10.0); NEUTROPHILS % (AUTO) 68.5 % (45.0-75.0); PLATELET COUNT 341 K/UL (150-450); RED BLOOD COUNT 3.92 M/UL (4.20-5.40); RED CELL DISTRIBUTION WIDTH 11.6 % (11.6-14.8); WHITE BLOOD COUNT 14.4 K/UL (4.8-10.8)
[2018-08-29 05:06] LABS: ALANINE AMINOTRANSFERASE 39 U/L (12-78); ALBUMIN 3.2 G/DL (3.4-5.0); ALBUMIN/GLOBULIN RATIO 0.7 (1.0-2.7); ALKALINE PHOSPHATASE 84 U/L (46-116); ANION GAP 13 mmol/L (5-15); ASPARTATE AMINO TRANSFERASE 17 U/L (15-37); BILIRUBIN,TOTAL 0.5 MG/DL (0.2-1.0); BLOOD UREA NITROGEN 34 mg/dL (7-18); CALCIUM 10.2 MG/DL (8.5-10.1); CARBON DIOXIDE 26 MMOL/L (21-32); CHLORIDE 103 MMOL/L (98-107); CREATININE 0.5 MG/DL (0.55-1.30); PHOSPHORUS 4.1 MG/DL (2.5-4.9); POTASSIUM 3.7 MMOL/L (3.5-5.1); SODIUM 142 MMOL/L (136-145)
[2018-08-29] MEDS: HydrALAZINE 10mg Tab GT SCH ×4 (05:19→23:58)
[2018-08-29] MEDS: NovoLOG Insulin Flexpen SUBQ SCH ×4 (05:19→23:59)
[2018-08-29 05:28] LABS: AMYLASE 31 U/L (25-115)
--- NOTE | 2018-08-29 07:00 | NUR ---
Received Patient on AVCV RR 16, VT 500, FIO2 40%, PEEP +5. Breath sounds reveal bilateral diminished rhonchi. Suction thick white clear secretions as needed. Patient alert and awake, lying in bed. Patient vent dependent with a Portex 7 tracheostomy, secured by trache ties. Ambu Bag at bedside. Alarms on and audible. Will continue to monitor patient throughout the day.
--- NOTE | 2018-08-29 07:21 | NUR ---
HAND-OFF: Report given to Stan GHOSH using SBAR.
--- NOTE | 2018-08-29 07:29 | NUR ---
NURSE NOTES: Received report from AUGIE Chaidez. Patient resting in bed, in stable condition. No s/sx of SOB, breathing is even and unlabored, vent settings are as ordered. Observed no presence of pain or discomfort at this time. Bed is in lowest position, brakes engaged. Call light is kept within easy reach. Will continue to monitor patient.
[2018-08-29 08:00] VITALS: BP 129/71
--- NOTE | 2018-08-29 08:10 | Infectious Diseases Prog Note ---
Assessment/Plan Assessment/Plan PNA -08/18 CXR: Interim partial improvement of left basilar infiltrate, over 3 days -CTA chest: No evidence of pulmonary embolism. Bronchiectasis with mild volume loss and consolidation in the left lower lobe, which may suggest atelectasis versus pneumonia. Small layering left pleural effusion. -sp cx MDR ABC (I Ceftazidime; S Amikacin), PsA (arce S); 08/24 sp cx S.marcenses (R ancef otherwise S) -influenza sc neg -CXR: Opacity in the left lung base which may represent pleural effusion and atelectasis. Pneumonia is not excluded. Low grade fever x1, SP Leukocytosis, increased -08/24 u/a neg -Bcx NTD -u/a neg Lactic acidosis, SP hx of cardiac arrest hx of cerebral hemorrhage c/w aphasia and R hemiplegia chronic trach and peg HLD HTN bed bound SNF resident Plan: -Continue IV Amikacin and INH colistin #10/ for MDR ABC and Tigecycline #4/ given leukocytosis (double coverage for MDR ABC) -08/24 SP Zosyn # 8 -08/18 SP IV Vancomycin #2 -08/16 SP Zosyn x1 -Repeat cultuers, Cdiff -f.u cx -Monitor CBC/CMP, temperatures -aspiration precautions -PEG/Trach care -CBC, CMP, amylase, lipase, CXR am Subjective Allergies: Coded Allergies: MILK (Verified Allergy, Unknown, 08/16/18) Subjective Patient with TAE Afebrile Leukocytosis decreasing Objective Vital Signs Last 24 Hour Vital Signs Date Time Temp Pulse Resp B/P (MAP) Pulse Ox O2 Delivery O2 Flow Rate FiO2 08/29/18 07:18 56 19 40 08/29/18 05:20 55 17 40 08/29/18 05:19 141/73 08/29/18 04:00 Mechanical Ventilator 08/29/18 04:00 51 08/29/18 04:00 98.6 54 17 141/73 (95) 100 08/29/18 04:00 40 08/29/18 02:40 56 20 40 08/29/18 00:52 52 16 40 08/29/18 00:00 93 08/29/18 00:00 98.6 60 16 122/67 (85) 100 08/29/18 00:00 Mechanical Ventilator 08/29/18 00:00 40 08/28/18 23:37 145/85 08/28/18 23:05 58 16 40 08/28/18 21:46 56 16 100 Mechanical Ventilator 40 08/28/18 21:31 58 16 100 Mechanical Ventilator 40 08/28/18 21:30 58 16 40 08/28/18 20:00 Mechanical Ventilator 08/28/18 20:00 98.6 56 17 116/69 (85) 100 08/28/18 20:00 40 08/28/18 20:00 51 08/28/18 19:36 61 16 40 08/28/18 18:09 141/75 08/28/18 16:30 68 20 40 08/28/18 16:00 55 08/28/18 16:00 40 08/28/18 16:00 Mechanical Ventilator 08/28/18 16:00 98.1 63 18 141/75 (97) 100 08/28/18 14:30 67 20 40 08/28/18 13:25 63 20 40 08/28/18 12:30 131/74 08/28/18 12:00 98.8 60 17 131/74 (93) 100 08/28/18 12:00 Mechanical Ventilator 08/28/18 12:00 40 08/28/18 11:43 63 08/28/18 11:01 59 19 40 08/28/18 10:32 59 16 100 Mechanical Ventilator 40 08/28/18 10:21 59 19 100 Mechanical Ventilator 40 08/28/18 09:20 57 21 40 Height (Feet): 5 Height (Inches): 4.00 Weight (Pounds): 186 Objective GEN: NAD, On vent 40% O2 HEENT: NCAT, MMM, PERRL LUNGS: Course B/L, No W HEART: RRR, normal S1 and normal S2. ABDOMEN: Soft. NT, ND, + BS Laboratory Tests Test 08/29/18 02:30 08/29/18 03:21 Urine Color Yellow Urine Appearance Cloudy Urine pH 5 (4.5-8.0) Urine Specific [place] 1.030 (1.005-1.035) Urine Protein 2+ (NEGATIVE) H Urine Glucose (UA) Negative (NEGATIVE) Urine Ketones 1+ (NEGATIVE) H Urine Blood 2+ (NEGATIVE) H Urine Nitrite Negative (NEGATIVE) Urine Bilirubin Negative (NEGATIVE) Urine Urobilinogen Normal MG/DL (0.0-1.0) Urine Leukocyte Esterase 3+ (NEGATIVE) H Urine RBC 5-10 /HPF (0 - 2) H Urine WBC Tntc /HPF (0 - 2) H Urine Squamous Epithelial Cells None /LPF (NONE/OCC) Urine Amorphous Sediment Many /LPF (NONE) H Urine Bacteria Many /HPF (NONE) H White Blood Count 14.4 K/UL (4.8-10.8) H Red Blood Count 3.92 M/UL (4.20-5.40) L Hemoglobin 12.4 G/DL (12.0-16.0) Hematocrit 36.7 % (37.0-47.0) L Mean Corpuscular Volume 94 FL (80-99) Mean Corpuscular Hemoglobin 31.7 PG (27.0-31.0) H Mean Corpuscular Hemoglobin Concent 33.9 G/DL (32.0-36.0) Red Cell Distribution Width 11.6 % (11.6-14.8) Platelet Count 341 K/UL (150-450) Mean Platelet Volume 6.5 FL (6.5-10.1) Neutrophils (%) (Auto) 68.5 % (45.0-75.0) Lymphocytes (%) (Auto) 23.0 % (20.0-45.0) Monocytes (%) (Auto) 5.6 % (1.0-10.0) Eosinophils (%) (Auto) 1.9 % (0.0-3.0) Basophils (%) (Auto) 1.0 % (0.0-2.0) Sodium Level 142 MMOL/L (136-145) Potassium Level 3.7 MMOL/L (3.5-5.1) Chloride Level 103 MMOL/L (98-107) Carbon Dioxide Level 26 MMOL/L (21-32) Anion Gap 13 mmol/L (5-15) Blood Urea Nitrogen 34 mg/dL (7-18) H Creatinine 0.5 MG/DL (0.55-1.30) L Estimat Glomerular Filtration Rate > 60 mL/min (>60) Glucose Level 89 MG/DL (74-106) Calcium Level 10.2 MG/DL (8.5-10.1) H Phosphorus Level 4.1 MG/DL (2.5-4.9) Magnesium Level 1.9 MG/DL (1.8-2.4) Total Bilirubin 0.5 MG/DL (0.2-1.0) Aspartate Amino Transf (AST/SGOT) 17 U/L (15-37) Alanine Aminotransferase (ALT/SGPT) 39 U/L (12-78) Alkaline Phosphatase 84 U/L (46-116) Total Protein 7.8 G/DL (6.4-8.2) Albumin 3.2 G/DL (3.4-5.0) L Globulin 4.6 g/dL Albumin/Globulin Ratio 0.7 (1.0-2.7) L Amylase Level 31 U/L (25-115) Lipase 196 U/L (73-393) Current Medications Medications (Trade) Dose Ordered Sig/Marzena Route PRN Reason Start Time Stop Time Status Last Admin Dose Admin Acetaminophen (Tylenol) 650 mg Q4H PRN GT FEVER/PAIN 08/26/18 20:20 09/15/18 20:19 08/26/18 20:27 Amikacin Protocol (Amikacin pharmacy to dose) 1 ea DAILY PRN MISC Per rx protocol 08/19/18 12:45 09/18/18 12:44 Amikacin Sulfate 1000 mg/Sodium Chloride 114 ml @ 114 mls/hr Q24H IV 08/25/18 16:00 09/01/18 15:59 08/28/18 16:10 Amlodipine Besylate (Norvasc) 5 mg DAILY GT 08/17/18 09:00 09/16/18 08:59 08/28/18 08:06 Artificial Tears (Akwa-Tears) 2 drop Q4H PRN BOTH EYES Dry Eyes 08/28/18 00:30 09/27/18 00:29 08/28/18 07:57 Barium Sulfate (Readi-Cat 2) 450 ml NOW PRN ORAL Radiology Procedure 08/29/18 00:30 08/31/18 00:20 Dextrose (Dextrose 50%) 25 ml Q30M PRN IV Hypoglycemia 08/16/18 16:00 09/15/18 15:59 Dextrose (Dextrose 50%) 50 ml Q30M PRN IV Hypoglycemia 08/16/18 16:00 09/15/18 15:59 Gentamicin Sulfate (Garamycin 0.3% Opt Soln) 1 drop TID LEFT EYE 08/23/18 18:00 09/02/18 13:01 08/28/18 18:10 Heparin Sodium (Porcine) (Heparin 5000 units/ml) 5,000 units EVERY 12 HOURS SUBQ 08/16/18 21:00 09/15/18 20:59 08/28/18 21:07 Hydralazine HCl (Apresoline) 10 mg EVERY 6 HOURS GT 08/16/18 18:00 09/15/18 17:59 08/29/18 05:19 Insulin Aspart (NovoLOG) Q6HR SUBQ 08/16/18 18:00 09/15/18 17:59 08/28/18 06:02 Lactulose (Cephulac) 20 gm TWICE A DAY GT 08/16/18 18:00 09/15/18 17:59 08/28/18 18:10 Lansoprazole (Prevacid) 30 mg DAILY GT 08/20/18 09:00 09/19/18 08:59 08/28/18 08:06 Mometasone Furoate (Elocon) 1 applic DAILY PRN TOPIC Itching/Pruritis 08/28/18 00:30 09/27/18 00:29 08/28/18 08:05 Ondansetron HCl (Zofran) 4 mg Q6H PRN IVP Nausea & Vomiting 08/16/18 14:00 09/15/18 13:59 Polyethylene Glycol (Miralax) 17 gm DAILYPRN PRN GT Constipation 08/16/18 14:00 09/15/18 13:59 08/16/18 21:09 Tigecycline 50 mg/ Sodium Chloride 110 ml @ 220 mls/hr Q12HR IVPB 08/26/18 23:00 09/02/18 22:59 08/28/18 21:04 Justo Banegas MD Aug 29, 2018 08:10
[2018-08-29] MEDS: Lactulose 20gm/30ml UDC GT SCH ×2 (08:47→18:34)
[2018-08-29] MEDS: Gentamicin 0.3% Opth Soln 5ml LEFT EYE SCH ×3 (08:49→17:09)
[2018-08-29] MEDS: [UNRECOGNIZED DRUG - OTHER] IVPB SCH ×4 (08:49→20:10)
[2018-08-29] MEDS: Heparin 5000 units/ml inj SUBQ SCH ×2 (08:50→20:12)
--- NOTE | 2018-08-29 10:04 | NUR ---
RD ASSESSMENT & RECOMMENDATIONS SEE CARE ACTIVITY FOR COMPLETE ASSESSMENT DAILY ESTIMATED NEEDS: Needs based on Critical care, sepsis 61kg adj 22-30 kcals/kg 3628-5424 total kcals 1.2-2 g protein/kg 73-122 g total protein 25-30 mL/kg 9837-7240 total fluid mLs NUTRITION DIAGNOSIS: Swallowing difficulty r/t respiratory status as evidenced by pt is vent dep via trach w/ PEG. CURRENT TF:Vital AF 1.2 @65ml/hr x20 hrs -> held ENTERAL NUTRITION RECOMMENDATIONS: VITAL AF 1.2 @65ml/hr x20 hrs to provide 1300ml, 1560 kcal, 98g pro, 1054ml free H2o - Continue w/ current TF - Flush per MD/ HOB over 30 degrees ADDITIONAL RECOMMENDATIONS: 1) MONITOR FOR SIGNS OF INTOLERANCE TO FORMULA PT PREVIOUSLY ON SOY BASED FORMULA 2) Monitor lytes, BG daily 3) RE-calibrate bed scale as able: Pt is 178# from SNF (per EMR:190#)
--- NOTE | 2018-08-29 11:23 | Diagnostic Imaging Report ---
EXAM: CT Abdomen and Pelvis Without Intravenous Contrast CLINICAL HISTORY: Abdominal pain. Abnormal labs. TECHNIQUE: Axial computed tomography images of the abdomen and pelvis without intravenous contrast. CTDI is 18 mGy and DLP is 934 mGy-cm. One or more of the following dose reduction techniques were used: automated exposure control, adjustment of the mA and/or kV according to patient size, use of iterative reconstruction technique. Oral contrast was administered. Coronal and sagittal reformatted images were created and reviewed. COMPARISON: No relevant prior studies available. FINDINGS: Lung bases: Minimal dependent consolidation in the left lung base, which may be atelectasis versus pneumonia. Pleural space: Trace left pleural effusion. ABDOMEN: Liver: Unremarkable. Gallbladder and bile ducts: Unremarkable. No calcified stones. No ductal dilation. Pancreas: Unremarkable. No ductal dilation. Spleen: Unremarkable. No splenomegaly. Adrenals: Unremarkable. No mass. Kidneys and ureters: Punctate right renal hilar calcifications are most likely vascular however cannot exclude tiny nonobstructive stones. The kidneys otherwise have an unremarkable noncontrast appearance. No hydronephrosis or hydroureter. Stomach and bowel: Moderate stool throughout the left colon and rectum may suggest mild constipation. Remainder of the colon appears unremarkable. No abnormally distended loops of small bowel. GE junction and stomach appear unremarkable. No mucosal thickening. PELVIS: Appendix: No findings to suggest acute appendicitis. Bladder: Unremarkable. No stones. Reproductive: Unremarkable as visualized. ABDOMEN and PELVIS: Intraperitoneal space: Unremarkable. No free air. No significant fluid collection. Bones/joints: Grade 1 anterolisthesis of L4 relative to L5 with 5 mm offset. Remote posttraumatic osseous remodeling along the posterior right acetabulum. Trabecular pattern of L4 suggesting a vertebral body hemangioma. No acute fracture. No dislocation. Soft tissues: Scattered subcutaneous nodularity in the anterior abdomen, likely related to prior injections. Vasculature: Atherosclerotic calcifications throughout the abdominal aorta and its proximal branches. No abnormal dilatation. Lymph nodes: Unremarkable. No enlarged lymph nodes. Tubes, lines and devices: Percutaneous gastrostomy tube in place, with expected positioning. IMPRESSION: 1. Trace left pleural effusion. 2. Minimal dependent consolidation in the left lung base, which may be atelectasis versus pneumonia. 3. Punctate right renal hilar calcifications are most likely vascular however cannot exclude tiny nonobstructive stones. 4. Moderate stool throughout the left colon and rectum, suggesting mild constipation. 5. Percutaneous gastrostomy tube in place, with expected positioning. 6. Grade 1 anterolisthesis of L4 relative to L5 with 5 mm offset. 7. Scattered subcutaneous nodularity in the anterior abdomen, likely related to prior injections.
[2018-08-29 12:00] VITALS: BP 128/74
--- NOTE | 2018-08-29 12:17 | Pulmonolgy Critical Care Note ---
Critical Care - Asmt/Plan Problems: (1) Acute on chronic respiratory failure (2) Nosocomial pneumonia (3) Cardiac arrest (4) Feeding by G-tube (5) Sepsis Respiratory: monitor respiratory rate, adjust FIO2, CXR Cardiac: continue pressors, continue to monitor HR/BP Renal: F/U I&O, keep IV fluid, check electrolytes Infectious Disease: continue antibiotics Gastrointestinal: continue feedings/current rate Endocrine: monitor blood sugar Hematologic: monitor H/H, transfuse if hgb<8.5 Neurologic: keep patient comfortable Prophylaxis: Protonix Time Spent (Minutes): 40 Notes Reviewed: cardio Discussed with: nurses, consultants, case packer and sealermanager contracting - Objective Last 24 Hour Vital Signs Date Time Temp Pulse Resp B/P (MAP) Pulse Ox O2 Delivery O2 Flow Rate FiO2 08/29/18 12:00 40 08/29/18 12:00 Mechanical Ventilator 08/29/18 11:16 78 16 40 08/29/18 08:48 55 129/71 08/29/18 08:41 55 18 40 08/29/18 08:00 Mechanical Ventilator 08/29/18 08:00 40 08/29/18 08:00 51 08/29/18 08:00 98.9 52 17 129/71 (90) 100 08/29/18 07:18 56 19 40 08/29/18 05:20 55 17 40 08/29/18 05:19 141/73 08/29/18 04:00 Mechanical Ventilator 08/29/18 04:00 51 08/29/18 04:00 98.6 54 17 141/73 (95) 100 08/29/18 04:00 40 08/29/18 02:40 56 20 40 08/29/18 00:52 52 16 40 08/29/18 00:00 93 08/29/18 00:00 98.6 60 16 122/67 (85) 100 08/29/18 00:00 Mechanical Ventilator 08/29/18 00:00 40 08/28/18 23:37 145/85 08/28/18 23:05 58 16 40 08/28/18 21:46 56 16 100 Mechanical Ventilator 40 08/28/18 21:31 58 16 100 Mechanical Ventilator 40 08/28/18 21:30 58 16 40 08/28/18 20:00 Mechanical Ventilator 08/28/18 20:00 98.6 56 17 116/69 (85) 100 08/28/18 20:00 40 08/28/18 20:00 51 08/28/18 19:36 61 16 40 08/28/18 18:09 141/75 08/28/18 16:30 68 20 40 08/28/18 16:00 55 08/28/18 16:00 40 08/28/18 16:00 Mechanical Ventilator 08/28/18 16:00 98.1 63 18 141/75 (97) 100 08/28/18 14:30 67 20 40 08/28/18 13:25 63 20 40 08/28/18 12:30 131/74 Status: awake HEENT: atraumatic Lungs: clear Heart: HR/BP unstable Abdomen: active bowel sounds, feeding tube Extremities: edema Decubiti: location Accucheck: 98 Critical Care - Subjective ROS Limited/Unobtainable: Yes Condition: critical EKG Rhythm: Sinus Rhythm FI02: 40 Vent Support Breath Rate: 16 Vent Support Mode: AC Vent Tidal Volume: 500 Sputum Amount: Small PEEP: 5.0 PIP: 38 Tube Feeding Amount: 65 I&O: Intake and Output 08/28/18 08/29/18 19:00 07:00 Intake Total 1239 ml 230 ml Output Total 450 ml 350 ml Balance 789 ml -120 ml Intake Free Water 300 ml IV Total 224 ml Tube Feeding 715 ml 130 ml Other 100 ml Output Urine Total 450 ml 350 ml # Voids 1 # Bowel Movements 2 Labs: Laboratory Tests Test 08/29/18 02:30 08/29/18 03:21 Urine Color Yellow Urine Appearance Cloudy Urine pH 5 (4.5-8.0) Urine Specific [place] 1.030 (1.005-1.035) Urine Protein 2+ (NEGATIVE) H Urine Glucose (UA) Negative (NEGATIVE) Urine Ketones 1+ (NEGATIVE) H Urine Blood 2+ (NEGATIVE) H Urine Nitrite Negative (NEGATIVE) Urine Bilirubin Negative (NEGATIVE) Urine Urobilinogen Normal MG/DL (0.0-1.0) Urine Leukocyte Esterase 3+ (NEGATIVE) H Urine RBC 5-10 /HPF (0 - 2) H Urine WBC Tntc /HPF (0 - 2) H Urine Squamous Epithelial Cells None /LPF (NONE/OCC) Urine Amorphous Sediment Many /LPF (NONE) H Urine Bacteria Many /HPF (NONE) H White Blood Count 14.4 K/UL (4.8-10.8) H Red Blood Count 3.92 M/UL (4.20-5.40) L Hemoglobin 12.4 G/DL (12.0-16.0) Hematocrit 36.7 % (37.0-47.0) L Mean Corpuscular Volume 94 FL (80-99) Mean Corpuscular Hemoglobin 31.7 PG (27.0-31.0) H Mean Corpuscular Hemoglobin Concent 33.9 G/DL (32.0-36.0) Red Cell Distribution Width 11.6 % (11.6-14.8) Platelet Count 341 K/UL (150-450) Mean Platelet Volume 6.5 FL (6.5-10.1) Neutrophils (%) (Auto) 68.5 % (45.0-75.0) Lymphocytes (%) (Auto) 23.0 % (20.0-45.0) Monocytes (%) (Auto) 5.6 % (1.0-10.0) Eosinophils (%) (Auto) 1.9 % (0.0-3.0) Basophils (%) (Auto) 1.0 % (0.0-2.0) Sodium Level 142 MMOL/L (136-145) Potassium Level 3.7 MMOL/L (3.5-5.1) Chloride Level 103 MMOL/L (98-107) Carbon Dioxide Level 26 MMOL/L (21-32) Anion Gap 13 mmol/L (5-15) Blood Urea Nitrogen 34 mg/dL (7-18) H Creatinine 0.5 MG/DL (0.55-1.30) L Estimat Glomerular Filtration Rate > 60 mL/min (>60) Glucose Level 89 MG/DL (74-106) Calcium Level 10.2 MG/DL (8.5-10.1) H Phosphorus Level 4.1 MG/DL (2.5-4.9) Magnesium Level 1.9 MG/DL (1.8-2.4) Total Bilirubin 0.5 MG/DL (0.2-1.0) Aspartate Amino Transf (AST/SGOT) 17 U/L (15-37) Alanine Aminotransferase (ALT/SGPT) 39 U/L (12-78) Alkaline Phosphatase 84 U/L (46-116) Total Protein 7.8 G/DL (6.4-8.2) Albumin 3.2 G/DL (3.4-5.0) L Globulin 4.6 g/dL Albumin/Globulin Ratio 0.7 (1.0-2.7) L Amylase Level 31 U/L (25-115) Lipase 196 U/L (73-393) Curtis Mcgovern MD Aug 29, 2018 12:17
--- NOTE | 2018-08-29 12:39 | Diagnostic Imaging Report ---
EXAM: XR Chest, 1 View CLINICAL HISTORY: COUGH TECHNIQUE: Frontal view of the chest. COMPARISON: No relevant prior studies available. FINDINGS: Lungs: Mild subsegmental atelectasis versus infiltrate in the left lung base. Pleural space: Possible small left pleural effusion. Heart: Borderline enlarged. Mediastinum: Unremarkable. Bones/joints: Degenerative changes throughout the visualized spine and shoulder joints. Vasculature: Atherosclerotic calcifications within the aortic arch. Tubes, lines and devices: Tracheostomy tube with expected positioning. Telemetry leads overlie the thorax. Other findings: 2.3 x 1.7 cm calcification overlies the left subacromial space.. IMPRESSION: 1. Mild subsegmental atelectasis versus infiltrate in the left lung base. 2. Possible small left pleural effusion.
[2018-08-29 16:00] VITALS: BP 129/78
[2018-08-29] MEDS: Amikacin 1,000 MG in NS 110 ML IV SCH (16:17)
--- NOTE | 2018-08-29 16:23 | NUR ---
CASE MANAGEMENT: REVIEW SI: VENT DEPENDENT . ACUTE ON CHRONIC RESP FAILURE . PNA . CARDIAC ARREST T 98.7 HR 53 RR 17 BP 128/74 SAT 99% MECH VENT FIO2 40 WBC 14.4 BUN 34 CR 0.5 IS: TIGECYCLINE IV Q12HR AMIKACIN IV Q24HR LACTULOSE GT BID BARIUM PO X1 / CT ABD / PEL URINE CULTURE PENDING STEP DOWN UNIT STATUS DCP: PATIENT IS FROM [facility]
--- NOTE | 2018-08-29 19:00 | Progress Note ---
DATE: 08/28/2018 SUBJECTIVE: The patient is afebrile and hemodynamically stable with persistent bradycardia. PHYSICAL EXAMINATION: VITAL SIGNS: Blood pressure 145/85, pulse is 68, respirations of 16, and temperature is 98.6. HEENT: Eyes were normal. ENT, mucous membranes were moist and intact. NECK: Supple with no JVD without lymph nodes. Tracheostomy site is clean. LUNGS: Clear without rhonchi, rales, or wheezing. Secretions are small, thin, and martinez. HEART: Normal sounds with regular beats. ABDOMEN: Soft and nontender with normal bowel sounds. EXTREMITIES: Warm without cyanosis, clubbing, or edema. LABORATORY AND DIAGNOSTIC DATA: Hemoglobin 12.3, hematocrit with MCV of 34, WBC of 17.0, and platelets of 379. between August 23 to August 27. Her BUN and creatinine are 36 and 0.5 respectively. Her sodium is , potassium 3.6, chloride 103, and CO2 27. Her blood culture from showed no growth . Acinetobacter baumannii 03:01. IMPRESSION AND PLAN: The patient appeared to be in stable condition hemodynamically. The patient has increased from 13 to 17 of WBC. the Infectious Disease and they initiated workup with regard to sputum culture and chest . Karissa Fox M.D. DR: NEGRO JOB#: [id number] CC:
--- NOTE | 2018-08-29 19:05 | NUR ---
HAND-OFF: Report given to AUGIE Jimenez.
--- NOTE | 2018-08-29 19:06 | NUR ---
NURSE NOTES: RECEIVED PT FROM AUGIE HARVEY. PT IS NONVERBAL D/T TRACH, DIFFICULTY DETERMINING ORIENTATION. CAR CHASER SHOWING SB, ASYMPTOMATIC, MD AWARE. VENT SETTINGS, PORTEX 7, AC 16, TV 500, FIO2 40, PEEP 5. GTF VITAL AF 1.2 @ 65 X 20 HOURS, OFF FROM [id number], 100 WF. PURWICK DRAINING. ACCUCHEK Q6. SKIN IS CLEAN, DRY, DRESSING INTACT. LH 24G; ASYMPTOMATIC. BED IS LOCKED IN LOWEST POSITION, SR X3, CALL OVALLES W/ IN REACH, BED ALARM ON, WILL CONTINUE TO MONITOR AND FOLLOW W/ PLAN OF CARE.
[2018-08-29 20:00] VITALS: BP 137/73
[2018-08-30] VITALS: BP 127/74
[2018-08-30 04:00] VITALS: BP 105/60
[2018-08-30] MEDS: HydrALAZINE 10mg Tab GT SCH ×3 (05:30→17:26)
[2018-08-30] MEDS: NovoLOG Insulin Flexpen SUBQ SCH ×4 (05:31→23:44)
--- NOTE | 2018-08-30 06:53 | NUR ---
HAND-OFF: Report given to AUGIE HARVEY. PT IS RESTING IN BED, NO S/S OF DISTRESS NOTED.
--- NOTE | 2018-08-30 06:55 | NUR ---
RESPIRATORY NOTE:Received pt on AC 16, VT 500, FIO2 40%, PEEP +5 with size 7 portex cuffed trach tube. pt is alert and awake. no s/s of distress. Alarms on and audible. will cont. to monitor pt.
--- NOTE | 2018-08-30 07:01 | NUR ---
NURSE NOTES: Received report from AUGIE Jimenez. Patient is resting in bed, in stable condition. No s/sx of SOB, breathing is even and unlabored. Vent settings are as ordered. Denies any presence of pain or discomfort at this time. Bed is in lowest position, brakes engaged. Call light is kept within easy reach. Will continue to monitor patient.
[2018-08-30 08:00] VITALS: BP 123/90
[2018-08-30] MEDS: Lactulose 20gm/30ml UDC GT SCH ×2 (08:45→18:45)
[2018-08-30] MEDS: Gentamicin 0.3% Opth Soln 5ml LEFT EYE SCH ×3 (08:45→17:26)
[2018-08-30] MEDS: Heparin 5000 units/ml inj SUBQ SCH ×2 (08:47→21:47)
[2018-08-30] MEDS: [UNRECOGNIZED DRUG - OTHER] IVPB SCH ×4 (08:49→21:37)
--- NOTE | 2018-08-30 11:45 | Progress Note ---
DATE: 08/29/2018 SUBJECTIVE: The patient is afebrile and hemodynamically stable. PHYSICAL EXAMINATION: VITAL SIGNS: Blood pressure 127/74, her pulse is 62, respirations of 16, and temperature of 98.2. HEENT: Eyes were normal. ENT, mucous membranes were moist and intact. NECK: Supple with no JVD without lymph nodes. Tracheostomy site is clean. LUNGS: Clear without rhonchi, rales, or wheezing. Secretions are small, thin, and martinez. HEART: Normal sounds with regular heartbeat. There is no S3, S4, or pericardial rub. ABDOMEN: Soft and nontender with normal bowel sounds. Gastrostomy site is clean. EXTREMITIES: Warm without cyanosis, clubbing, or edema. LABORATORY AND DIAGNOSTIC DATA: Hemoglobin is 12.4, hematocrit 36.2 with MCV of 94, WBC of 14.4, and platelets are 341. WBC yesterday was 17,000. Her BUN and creatinine are 34 and 0.5 respectively. Her sodium is 142, potassium 3.7, chloride 103, CO2 is 26, her calcium is 10.2, her phosphorus is 4.1, and magnesium is 1.9. SGOT, SGPT, and alkaline phosphatase are normal. Amylase and lipase were normal as well. Blood culture from 08/24/2018 both negative was done today. Chest x-ray atelectasis and infiltrates and possibly left pleural effusion. CT scan of the abdomen is . IMPRESSION AND PLAN: The impression on the CT is that the patient has both pleural effusion. consolidation in the left lower lobe gastrostomy tube. Grade 1 anterolisthesis of L4 on L5 . The patient currently is on 50 mg IV piggyback q.12 h. and amikacin 1 g IV piggyback q.24 h. Repeat laboratory tests will be done in the a.m. Karissa Fox M.D. DR: NEGRO JOB#: [id number] CC:
--- NOTE | 2018-08-30 11:52 | Pulmonolgy Critical Care Note ---
Critical Care - Asmt/Plan Problems: (1) Acute on chronic respiratory failure (2) Nosocomial pneumonia (3) Cardiac arrest (4) Feeding by G-tube (5) Sepsis Respiratory: monitor respiratory rate, adjust FIO2, CXR Cardiac: continue to monitor HR/BP Renal: F/U I&O Infectious Disease: check cultures Gastrointestinal: continue feedings/current rate, hold feedings Endocrine: monitor blood sugar, continue sliding scale insulin Hematologic: monitor H/H, transfuse if hgb<8.5 Neurologic: PRN Ativan, PRN Morphine, keep patient comfortable Affect: PRN ativan Time Spent (Minutes): 40 Notes Reviewed: military personnel specialist, cardio, renal Discussed with: nurses, consultants, catalytic case operatorcath lab manager - Objective Last 24 Hour Vital Signs Date Time Temp Pulse Resp B/P (MAP) Pulse Ox O2 Delivery O2 Flow Rate FiO2 08/30/18 10:51 62 16 40 08/30/18 09:11 57 16 40 08/30/18 08:45 61 129/72 08/30/18 08:00 Mechanical Ventilator 08/30/18 08:00 40 08/30/18 08:00 59 08/30/18 08:00 98.0 62 17 123/90 (101) 95 08/30/18 06:54 63 16 40 08/30/18 05:30 105/60 08/30/18 04:58 55 16 40 08/30/18 04:00 98.4 56 16 105/60 (75) 100 08/30/18 04:00 40 08/30/18 04:00 53 08/30/18 04:00 Mechanical Ventilator 08/30/18 02:31 54 16 40 08/30/18 00:50 56 16 40 08/30/18 00:00 64 08/30/18 00:00 Mechanical Ventilator 08/30/18 00:00 40 08/30/18 00:00 98.5 59 16 127/74 (91) 100 08/29/18 23:58 127/74 08/29/18 22:43 62 16 40 08/29/18 20:56 54 17 40 08/29/18 20:00 55 08/29/18 20:00 40 08/29/18 20:00 98.2 59 16 137/73 (94) 100 08/29/18 20:00 Mechanical Ventilator 08/29/18 18:38 55 16 40 3/30/19 17:08 55 16 40 08/29/18 17:08 129/78 08/29/18 16:00 40 08/29/18 16:00 Mechanical Ventilator 08/29/18 16:00 98.9 59 17 129/78 (95) 100 08/29/18 16:00 57 08/29/18 15:28 53 17 40 08/29/18 13:12 56 16 40 08/29/18 12:24 128/72 08/29/18 12:00 40 08/29/18 12:00 55 08/29/18 12:00 Mechanical Ventilator 08/29/18 12:00 98.7 56 17 128/74 (92) 99 Status: awake Condition: critical HEENT: atraumatic Neck: full ROM Heart: HR/BP stable Abdomen: non-tender, active bowel sounds Extremities: no C/C/E Micro: Microbiology Date/Time Source Procedure Growth Status 08/28/18 19:42 Sputum Induced Gram Stain - Final Resulted 08/28/18 19:42 Sputum Culture - Preliminary Gram Negative Bacillus 1 Resulted 08/29/18 02:30 Urine,Clean Catch Urine Culture - Preliminary Gram Negative Sumit Resulted Accucheck: 145 Critical Care - Subjective ROS Limited/Unobtainable: Yes Condition: critical EKG Rhythm: Sinus Rhythm FI02: 40 Vent Support Breath Rate: 16 Vent Support Mode: AC Vent Tidal Volume: 500 Sputum Amount: Small PEEP: 5.0 PIP: 38 Tube Feeding Amount: 65 I&O: Intake and Output 08/29/18 08/30/18 19:00 07:00 Intake Total 555 ml 960 ml Output Total 300 ml 500 ml Balance 255 ml 460 ml Intake Free Water 90 ml IV Total 220 ml Tube Feeding 455 ml 650 ml Other 100 ml Output Urine Total 300 ml 500 ml # Voids 2 1 # Bowel Movements 1 2 Curtis Mcgovern MD Aug 30, 2018 11:52
[2018-08-30 12:00] VITALS: BP 114/69
[2018-08-30] MEDS: Acetaminophen 650mg/20.3ml GT PRN (12:26)
[2018-08-30] MEDS: Colistin for inhalation INH SCH ×2 (14:49→22:13)
[2018-08-30] MEDS ORDERED: NS 500ML ONE (15:26)
[2018-08-30] MEDS ORDERED: NS 275ml ONE (15:26)
[2018-08-30 16:00] VITALS: BP 129/65
--- NOTE | 2018-08-30 16:38 | NUR ---
CASE MANAGEMENT: REVIEW 08/30/2018 SI: CP. VENT DEPENDENT. T 99.3 HR 57 RR 16 B/P 114/69 SATS 97% ON MECH VENT FiO2 40 NO LABS TODAY IS: HYDRALAZINE GT Q6H LACTULOSE GT BID NORVASC GT QD TIGECYCLINE IV Q12H COLISTIN IHN Q12H AMIKACIN IV Q24H INSULIN ASPART SUBQ Q6H ' STEP DOWN UNIT STATUS DCP: PATIENT IS FROM [facility] PLAN OF CARE: CXR
--- NOTE | 2018-08-30 16:51 | NUR ---
NURSE NOTES: This nurse received call from keyshawn Madera at nurse station, per Cassy informed this nurse that Amikacin trough machine is currently out of service at this time in lab and sample has been sent out to [facility] for analysis, at this time result of Amikacin trough is delayed, per Pharmacist Cassy informed this nurse that okay to administer schedule Amikacin 1,000 mg IV at this time. Charge nurse made aware. Order carried out. Will continue to monitor patient.
[2018-08-30] MEDS: Amikacin 1,000 MG in NS 110 ML IV SCH (16:53)
--- NOTE | 2018-08-30 19:30 | NUR ---
HAND-OFF: Report given to AUGIE Strauss..
--- NOTE | 2018-08-30 19:30 | NUR ---
NURSE NOTES: PT report received form Stan GHOSH. pt is resting comfortably in bed. 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 No signs or symptoms of respiratory/ cardiac distress noted. Pt has a 22G located on R hand, no infiltration noted. G tube is intact. all safety precautions are in place, such as safety breaks engaged, bed in lowest position, bed alarm active with call light within reach. Will continue plan of care.
[2018-08-30 20:00] VITALS: BP 139/80
--- NOTE | 2018-08-30 20:40 | General Progress Note ---
Assessment/Plan Assessment/Plan Assessment/Plan # Leukocytosis with likely pna, Opacity in the left lung base which may represent pleural effusion and atelectasis. Pneumonia is not excluded --> has not received steriods --> trend 12-->13-->17-->14 --> smear reviewed, no major abnml noted --> on abx as per id --> per pulm/cc care as well # Anemia of chronic disease due to underlying chronic medical issues, multifactorial --> Anemia workup only if hgb <10 --> No evidence of hemolysis is noted, peripheral smear reviewed --> Hgb goal >7. Transfuse prn. 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 Greatly appreciate consultation! Subjective Constitutional: Denies: no symptoms, chills, diaphoresis, fever, malaise, weakness, other HEENT: Denies: no symptoms, eye pain, blurred vision, tearing, double vision, ear pain, ear discharge, nose pain, nose congestion, throat pain, throat swelling, mouth pain, mouth swelling, other Allergies: Coded Allergies: MILK (Verified Allergy, Unknown, 08/16/18) Subjective 3.: no events, on amikacin, no f/c Objective Last 24 Hour Vital Signs Date Time Temp Pulse Resp B/P (MAP) Pulse Ox O2 Delivery O2 Flow Rate FiO2 08/30/18 19:09 51 18 40 08/30/18 17:26 129/72 08/30/18 16:55 62 18 40 08/30/18 16:00 98.6 53 16 129/65 (86) 100 08/30/18 16:00 40 08/30/18 16:00 52 08/30/18 16:00 Mechanical Ventilator 08/30/18 14:58 62 16 100 Mechanical Ventilator 15.0 40 08/30/18 14:48 60 16 99 Mechanical Ventilator 15.0 40 08/30/18 14:48 40 08/30/18 14:47 59 16 40 08/30/18 12:30 61 16 40 08/30/18 12:26 114/71 08/30/18 12:00 40 08/30/18 12:00 Mechanical Ventilator 08/30/18 12:00 99.3 57 16 114/69 (84) 97 08/30/18 12:00 58 08/30/18 10:51 62 16 40 08/30/18 09:11 57 16 40 08/30/18 08:45 61 129/72 08/30/18 08:00 Mechanical Ventilator 08/30/18 08:00 40 08/30/18 08:00 59 08/30/18 08:00 98.0 62 17 123/90 (101) 95 08/30/18 06:54 63 16 40 08/30/18 05:30 105/60 08/30/18 04:58 55 16 40 08/30/18 04:00 98.4 56 16 105/60 (75) 100 08/30/18 04:00 40 08/30/18 04:00 53 08/30/18 04:00 Mechanical Ventilator 08/30/18 02:31 54 16 40 08/30/18 00:50 56 16 40 08/30/18 00:00 64 08/30/18 00:00 Mechanical Ventilator 08/30/18 00:00 40 08/30/18 00:00 98.5 59 16 127/74 (91) 100 08/29/18 23:58 127/74 08/29/18 22:43 62 16 40 08/29/18 20:56 54 17 40 Intake and Output 08/29/18 08/30/18 18:59 06:59 Intake Total 490 ml 1025 ml Output Total 300 ml 500 ml Balance 190 ml 525 ml Intake Free Water 90 ml IV Total 220 ml Tube Feeding 390 ml 715 ml Other 100 ml Output Urine Total 300 ml 500 ml # Voids 2 1 # Bowel Movements 1 2 Laboratory Tests 08/30/18 15:14: Amikacin Level Trough [Pending] Height (Feet): 5 Height (Inches): 4.00 Weight (Pounds): 186 Objective PE HEENT: Pupils were round, equal, and reactive to light. Sclerae was white. . ENT, mucous membranes were not dehydrated. NECK: Supple. There was no goiter. No mass. ++ trach LUNGS: Clear with decreased breath sounds in both bases, more on the left than on the right. HEART: There was normal S1 and normal S2. There was no murmur. No arrhythmia. No S3. No S4. No pericardial rub. ABDOMEN: Soft. Nontender without organomegaly. ++ peg There was no guarding. No rebound tenderness. No ascites. EXTREMITIES: No cyanosis, no clubbing, and no edema. Extremities were warm. Asael Raman MD Aug 30, 2018 20:40
[2018-08-31] VITALS: BP 122/75
[2018-08-31] MEDS: HydrALAZINE 10mg Tab GT SCH ×5 (00:36→23:47)
--- NOTE | 2018-08-31 03:45 | Progress Note ---
DATE: 08/30/2018 SUBJECTIVE: The patient is afebrile and hemodynamically stable with borderline bradycardia. PHYSICAL EXAMINATION: VITAL SIGNS: Blood pressure 139/80, her pulse is 65, respirations of 15, and temperature of 98. HEENT: Eyes were normal. ENT, mucous membranes were moist and intact. NECK: Supple with no JVD, without lymph nodes. Tracheostomy site is clean. LUNGS: Clear without rhonchi or wheezing. Secretions are small, thin, and martinez. HEART: Normal sounds with regular heartbeat. There is no S3, S4, or pericardial rub. ABDOMEN: Soft and nontender with normal bowel sounds. Gastrostomy site is clean. EXTREMITIES: Warm without cyanosis, clubbing, or edema. LABORATORY AND DIAGNOSTIC DATA: Hemoglobin is 12.4, hematocrit 36.2 with MCV of 94, WBC of 14.4, and platelets are 341. WBC was 17,000 on 08/28/2018. BUN and creatinine are 34 and 0.5 respectively. Her sodium is 142, potassium 3.7, chloride 103, CO2 26, phosphorus is 4.1, and magnesium is 1.9. Calcium is 10.2. Amylase and lipase 31 and 196. Chest x-ray pleural effusion, subsegmental atelectasis versus infiltrate. IMPRESSION: The patient has leukocytosis secondary to pneumonia. We will continue with current antibiotics as WBC declined from 17 to 14. Repeat laboratory tests will be done in the morning. Karissa Fox M.D. DR: Roberto JOB#: [id number] CC:
[2018-08-31 04:00] VITALS: BP 110/65
--- NOTE | 2018-08-31 06:40 | NUR ---
NURSE NOTES: Lab called and reported Positive Urine ESBL
[2018-08-31 06:42] LABS: BASOPHILS % (AUTO) 1.1 % (0.0-2.0); EOSINOPHILS % (AUTO) 1.8 % (0.0-3.0); HEMOGLOBIN 12.4 G/DL (12.0-16.0); LYMPHOCYTES % (AUTO) 29.7 % (20.0-45.0); MEAN CORPUSCULAR VOLUME 94 FL (80-99); MONOCYTES % (AUTO) 5.7 % (1.0-10.0); NEUTROPHILS % (AUTO) 61.7 % (45.0-75.0); PLATELET COUNT 318 K/UL (150-450); RED BLOOD COUNT 4.03 M/UL (4.20-5.40); RED CELL DISTRIBUTION WIDTH 11.9 % (11.6-14.8); WHITE BLOOD COUNT 12.3 K/UL (4.8-10.8)
[2018-08-31] MEDS: NovoLOG Insulin Flexpen SUBQ SCH ×4 (06:44→23:47)
--- NOTE | 2018-08-31 07:00 | NUR ---
HAND-OFF: Report given to Irma GHOSH.
--- NOTE | 2018-08-31 07:06 | NUR ---
RESPIRATORY NOTE: Received patient on ordered vent settings. Patient tracheostomy tube is patent and secured. Suctioned patient PRN. No resp distress noted. Vent alarms are on and audible. Vent is plugged into red outlet. Will monitor patient progress.
[2018-08-31 07:19] LABS: ALANINE AMINOTRANSFERASE 49 U/L (12-78); ALBUMIN 2.9 G/DL (3.4-5.0); ALBUMIN/GLOBULIN RATIO 0.7 (1.0-2.7); ALKALINE PHOSPHATASE 91 U/L (46-116); ANION GAP 12 mmol/L (5-15); ASPARTATE AMINO TRANSFERASE 9 U/L (15-37); BILIRUBIN,TOTAL 0.2 MG/DL (0.2-1.0); BLOOD UREA NITROGEN 32 mg/dL (7-18); CALCIUM 9.3 MG/DL (8.5-10.1); CARBON DIOXIDE 23 MMOL/L (21-32); CHLORIDE 106 MMOL/L (98-107); CREATININE 0.5 MG/DL (0.55-1.30); POTASSIUM 4.1 MMOL/L (3.5-5.1); SODIUM 141 MMOL/L (136-145)
--- NOTE | 2018-08-31 07:30 | NUR ---
NURSE NOTES: Received pt from Stan Strauss RN in stable condition. No cardiopulmonary distress noted. Pt is AAOx3, trach to vent Portex 7 AC 16 TV 500 FiO2 40% Peep. GT noted running Vital AF 1.2 at 65 cc/hr. Purewick in place draining dark yellow urine. R hand 22g IV noted. Skin alterations noted. Pt on seizure precaution with padded side rails. Pt has SCDs on, bed is in lowest position, alarm on, side rails up x3, call light within reach. Will continue to monitor.
[2018-08-31 07:47] LABS: PHOSPHORUS 3.7 MG/DL (2.5-4.9)
[2018-08-31 08:00] VITALS: BP 141/67
[2018-08-31] MEDS: [UNRECOGNIZED DRUG - OTHER] IVPB SCH ×4 (08:38→20:16)
[2018-08-31] MEDS: Gentamicin 0.3% Opth Soln 5ml LEFT EYE SCH ×3 (08:38→17:51)
[2018-08-31] MEDS: Lactulose 20gm/30ml UDC GT SCH ×2 (08:39→17:51)
[2018-08-31] MEDS: Artificial Tears 1.4% Op Soln BOTH EYES PRN ×3 (08:40→17:51)
[2018-08-31] MEDS: Heparin 5000 units/ml inj SUBQ SCH ×2 (08:48→20:18)
--- NOTE | 2018-08-31 09:34 | NUR ---
RADIOLOGY DEPT., CHEST X-RAY DONE.-P.DYE
[2018-08-31] MEDS: Colistin for inhalation INH SCH ×2 (10:00→23:13)
--- NOTE | 2018-08-31 10:19 | Diagnostic Imaging Report ---
Indication: Dyspnea Technique: One view of the chest Comparison: 08/29/2018 Findings: There is suggestion of slightly improved aeration of the left lung base, but the left hemidiaphragm remains obscured. The remainder of the lungs and pleural spaces are clear. The heart remains borderline enlarged. Tracheostomy remains Impression: Improved but persistent left basilar consolidation and/or atelectasis, over 2 days
--- NOTE | 2018-08-31 10:32 | Pulmonolgy Critical Care Note ---
Critical Care - Asmt/Plan Problems: (1) Acute on chronic respiratory failure (2) Nosocomial pneumonia (3) Cardiac arrest (4) Feeding by G-tube (5) Sepsis Respiratory: monitor respiratory rate, adjust FIO2, CXR Cardiac: continue to monitor HR/BP Renal: F/U I&O, keep IV fluid, increase IV fluid, check electrolytes Infectious Disease: check cultures, continue antibiotics Gastrointestinal: continue feedings/current rate, abdominal imaging Endocrine: monitor blood sugar, continue sliding scale insulin Hematologic: monitor H/H, transfuse if hgb<8.5 Neurologic: PRN Ativan, keep patient comfortable Affect: PRN ativan Prophylaxis: Protonix Time Spent (Minutes): 40 Notes Reviewed: fire loss prevention engineer, renal Discussed with: nurses, consultants, case assemblerhorse racetrack manager - Objective Last 24 Hour Vital Signs Date Time Temp Pulse Resp B/P (MAP) Pulse Ox O2 Delivery O2 Flow Rate FiO2 08/31/18 08:52 64 16 40 08/31/18 08:38 61 141/67 08/31/18 08:00 61 08/31/18 08:00 Mechanical Ventilator 08/31/18 08:00 40 08/31/18 08:00 98.1 61 18 141/67 (91) 100 08/31/18 07:06 61 16 40 08/31/18 06:58 110/65 08/31/18 05:13 56 16 40 08/31/18 04:00 98.5 64 16 110/65 (80) 97 08/31/18 04:00 40 08/31/18 04:00 Mechanical Ventilator 08/31/18 04:00 59 08/31/18 03:07 60 16 40 08/31/18 00:53 53 16 40 08/31/18 00:36 122/75 08/31/18 00:00 98.4 55 16 122/75 (91) 100 08/31/18 00:00 Mechanical Ventilator 08/31/18 00:00 63 08/30/18 22:41 64 20 40 08/30/18 22:23 65 18 100 Mechanical Ventilator 15.0 40 08/30/18 22:13 66 18 100 Mechanical Ventilator 15.0 40 08/30/18 21:25 51 17 40 08/30/18 20:00 40 08/30/18 20:00 Mechanical Ventilator 08/30/18 20:00 50 08/30/18 20:00 98.0 55 15 139/80 (99) 100 08/30/18 19:09 51 18 40 08/30/18 17:26 129/72 08/30/18 16:55 62 18 40 08/30/18 16:00 98.6 53 16 129/65 (86) 100 08/30/18 16:00 40 08/30/18 16:00 52 08/30/18 16:00 Mechanical Ventilator 08/30/18 14:58 62 16 100 Mechanical Ventilator 15.0 40 08/30/18 14:48 60 16 99 Mechanical Ventilator 15.0 40 08/30/18 14:48 40 08/30/18 14:47 59 16 40 08/30/18 12:30 61 16 40 08/30/18 12:26 114/71 08/30/18 12:00 40 08/30/18 12:00 Mechanical Ventilator 08/30/18 12:00 99.3 57 16 114/69 (84) 97 08/30/18 12:00 58 08/30/18 10:51 62 16 40 Status: awake Condition: critical HEENT: atraumatic Neck: full ROM, trach Lungs: rales, rhonchi Heart: HR/BP stable Abdomen: soft, non-tender Extremities: no C/C/E Decubiti: location Micro: Microbiology Date/Time Source Procedure Growth Status 08/28/18 13:05 Blood Blood Culture - Preliminary NO GROWTH AFTER 48 HOURS Resulted 08/28/18 12:50 Blood Blood Culture - Preliminary NO GROWTH AFTER 48 HOURS Resulted 08/28/18 19:42 Sputum Induced Gram Stain - Final Complete 08/28/18 19:42 Sputum Culture - Final Serratia Marcescens Complete 08/29/18 02:30 Urine,Clean Catch Urine Culture - Preliminary Klebsiella Pneumoniae Esbl Resulted Accucheck: 151 Critical Care - Subjective ROS Limited/Unobtainable: Yes Condition: critical FI02: 40 Vent Support Breath Rate: 16 Vent Support Mode: AC Vent Tidal Volume: 500 Sputum Amount: Small PEEP: 5.0 PIP: 30 Tube Feeding Amount: 65 I&O: Intake and Output 08/30/18 08/31/18 19:00 07:00 Intake Total 1080 ml 940 ml Output Total 700 ml 200 ml Balance 380 ml 740 ml Intake Free Water 300 ml 50 ml IV Total 110 ml Tube Feeding 780 ml 780 ml Output Urine Total 700 ml 200 ml # Voids 1 1 # Bowel Movements 3 3 CXR: improved LLL infiltrate Labs: Laboratory Tests Test 08/30/18 15:14 08/31/18 05:30 Amikacin Level Trough < 2.0 ug/mL (4.0-8.0) L White Blood Count 12.3 K/UL (4.8-10.8) H Red Blood Count 4.03 M/UL (4.20-5.40) L Hemoglobin 12.4 G/DL (12.0-16.0) Hematocrit 38.0 % (37.0-47.0) Mean Corpuscular Volume 94 FL (80-99) Mean Corpuscular Hemoglobin 30.7 PG (27.0-31.0) Mean Corpuscular Hemoglobin Concent 32.6 G/DL (32.0-36.0) Red Cell Distribution Width 11.9 % (11.6-14.8) Platelet Count 318 K/UL (150-450) Mean Platelet Volume 6.8 FL (6.5-10.1) Neutrophils (%) (Auto) 61.7 % (45.0-75.0) Lymphocytes (%) (Auto) 29.7 % (20.0-45.0) Monocytes (%) (Auto) 5.7 % (1.0-10.0) Eosinophils (%) (Auto) 1.8 % (0.0-3.0) Basophils (%) (Auto) 1.1 % (0.0-2.0) Sodium Level 141 MMOL/L (136-145) Potassium Level 4.1 MMOL/L (3.5-5.1) Chloride Level 106 MMOL/L (98-107) Carbon Dioxide Level 23 MMOL/L (21-32) Anion Gap 12 mmol/L (5-15) Blood Urea Nitrogen 32 mg/dL (7-18) H Creatinine 0.5 MG/DL (0.55-1.30) L Estimat Glomerular Filtration Rate > 60 mL/min (>60) Glucose Level 131 MG/DL (74-106) H Calcium Level 9.3 MG/DL (8.5-10.1) Phosphorus Level 3.7 MG/DL (2.5-4.9) Magnesium Level 2.1 MG/DL (1.8-2.4) Total Bilirubin 0.2 MG/DL (0.2-1.0) Aspartate Amino Transf (AST/SGOT) 9 U/L (15-37) L Alanine Aminotransferase (ALT/SGPT) 49 U/L (12-78) Alkaline Phosphatase 91 U/L (46-116) Total Protein 7.3 G/DL (6.4-8.2) Albumin 2.9 G/DL (3.4-5.0) L Globulin 4.4 g/dL Albumin/Globulin Ratio 0.7 (1.0-2.7) L Curtis Mcgovern MD Aug 31, 2018 10:32
--- NOTE | 2018-08-31 11:00 | NUR ---
NURSE NOTES: Notified Dr. Webb of pt's UA result (Active K. Pneumoniae ESBL urine). Dr. Webb stated she will review results accordingly.
[2018-08-31] MEDS: Acetaminophen 650mg/20.3ml GT PRN ×3 (11:07→20:17)
[2018-08-31 12:00] VITALS: BP 113/70
--- NOTE | 2018-08-31 13:29 | General Progress Note ---
Assessment/Plan Assessment/Plan Assessment/Plan # Leukocytosis with likely pna, Opacity in the left lung base which may represent pleural effusion and atelectasis. Pneumonia is not excluded --> has not received steriods --> trend 12-->13-->17-->14-->12 --> smear reviewed, no major abnml noted --> on abx as per id --> per pulm/cc care as well # Anemia of chronic disease due to underlying chronic medical issues, multifactorial --> Anemia workup only if hgb <10 --> No evidence of hemolysis is noted, peripheral smear reviewed --> Hgb goal >7. Transfuse prn. 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 Greatly appreciate consultation! Subjective Constitutional: Denies: no symptoms, chills, diaphoresis, fever, malaise, weakness, other HEENT: Denies: no symptoms, eye pain, blurred vision, tearing, double vision, ear pain, ear discharge, nose pain, nose congestion, throat pain, throat swelling, mouth pain, mouth swelling, other Cardiovascular: Denies: no symptoms, chest pain, edema, irregular heart rate, lightheadedness, palpitations, syncope, other Respiratory: Denies: no symptoms, cough, orthopnea, shortness of breath, SOB with excertion, SOB at rest, sputum, stridor, wheezing, other Genitourinary: Denies: no symptoms, burning, discharge, frequency, flank pain, hematuria, incontinence, pain, urgency, other Neurologic/Psychiatric: Denies: no symptoms, anxiety, depressed, emotional problems, headache, numbness, paresthesia, pre-existing deficit, seizure, tingling, tremors, weakness, other Endocrine: Denies: no symptoms, excessive sweating, flushing, intolerance to cold, intolerance to heat, increased hunger, increased thirst, increased urine, unexplained weight gain, unexplained weight loss, other Hematologic/Lymphatic: Denies: no symptoms, anemia, easy bleeding, easy bruising, other Allergies: Coded Allergies: MILK (Verified Allergy, Unknown, 08/16/18) Subjective 3.31: no events, on amikacin, no f/c 08/31: on vent, tolreating gtube feedings well, no complaints Objective Last 24 Hour Vital Signs Date Time Temp Pulse Resp B/P (MAP) Pulse Ox O2 Delivery O2 Flow Rate FiO2 08/31/18 12:39 113/70 08/31/18 12:00 40 08/31/18 12:00 Mechanical Ventilator 08/31/18 11:17 62 16 40 08/31/18 10:00 Mechanical Ventilator 08/31/18 10:00 Mechanical Ventilator 08/31/18 08:52 64 16 40 08/31/18 08:38 61 141/67 08/31/18 08:00 61 08/31/18 08:00 Mechanical Ventilator 08/31/18 08:00 40 08/31/18 08:00 98.1 61 18 141/67 (91) 100 08/31/18 07:06 61 16 40 08/31/18 06:58 110/65 08/31/18 05:13 56 16 40 08/31/18 04:00 98.5 64 16 110/65 (80) 97 08/31/18 04:00 40 08/31/18 04:00 Mechanical Ventilator 08/31/18 04:00 59 08/31/18 03:07 60 16 40 08/31/18 00:53 53 16 40 08/31/18 00:36 122/75 08/31/18 00:00 98.4 55 16 122/75 (91) 100 08/31/18 00:00 Mechanical Ventilator 08/31/18 00:00 63 08/30/18 22:41 64 20 40 08/30/18 22:23 65 18 100 Mechanical Ventilator 15.0 40 08/30/18 22:13 66 18 100 Mechanical Ventilator 15.0 40 08/30/18 21:25 51 17 40 08/30/18 20:00 40 08/30/18 20:00 Mechanical Ventilator 08/30/18 20:00 50 08/30/18 20:00 98.0 55 15 139/80 (99) 100 08/30/18 19:09 51 18 40 08/30/18 17:26 129/72 08/30/18 16:55 62 18 40 08/30/18 16:00 98.6 53 16 129/65 (86) 100 08/30/18 16:00 40 08/30/18 16:00 52 08/30/18 16:00 Mechanical Ventilator 08/30/18 14:58 62 16 100 Mechanical Ventilator 15.0 40 08/30/18 14:48 60 16 99 Mechanical Ventilator 15.0 40 08/30/18 14:48 40 08/30/18 14:47 59 16 40 Intake and Output 08/30/18 08/31/18 19:00 07:00 Intake Total 1080 ml 940 ml Output Total 700 ml 200 ml Balance 380 ml 740 ml Intake Free Water 300 ml 50 ml IV Total 110 ml Tube Feeding 780 ml 780 ml Output Urine Total 700 ml 200 ml # Voids 1 1 # Bowel Movements 3 3 Laboratory Tests 08/30/18 15:14: Amikacin Level Trough < 2.0L 08/31/18 05:30: White Blood Count 12.3H, Red Blood Count 4.03L, Hemoglobin 12.4, Hematocrit 38.0 , Mean Corpuscular Volume 94, Mean Corpuscular Hemoglobin 30.7, Mean Corpuscular Hemoglobin Concent 32.6, Red Cell Distribution Width 11.9, Platelet Count 318, Mean Platelet Volume 6.8, Neutrophils (%) (Auto) 61.7, Lymphocytes (% ) (Auto) 29.7, Monocytes (%) (Auto) 5.7, Eosinophils (%) (Auto) 1.8, Basophils ( %) (Auto) 1.1, Sodium Level 141, Potassium Level 4.1, Chloride Level 106, Carbon Dioxide Level 23, Anion Gap 12, Blood Urea Nitrogen 32H, Creatinine 0.5L , Estimat Glomerular Filtration Rate > 60, Glucose Level 131H, Calcium Level 9.3 , Phosphorus Level 3.7, Magnesium Level 2.1, Total Bilirubin 0.2, Aspartate Amino Transf (AST/SGOT) 9L, Alanine Aminotransferase (ALT/SGPT) 49, Alkaline Phosphatase 91, Total Protein 7.3, Albumin 2.9L, Globulin 4.4, Albumin/Globulin Ratio 0.7L Height (Feet): 5 Height (Inches): 4.00 Weight (Pounds): 186 Objective PE HEENT: Pupils were round, equal, and reactive to light. Sclerae was white. . ENT, mucous membranes were not dehydrated. NECK: Supple. There was no goiter. No mass. ++ trach LUNGS: Clear with decreased breath sounds in both bases, more on the left than on the right. HEART: There was normal S1 and normal S2. There was no murmur. No arrhythmia. No S3. No S4. No pericardial rub. ABDOMEN: Soft. Nontender without organomegaly. ++ peg There was no guarding. No rebound tenderness. No ascites. EXTREMITIES: No cyanosis, no clubbing, and no edema. Extremities were warm. Asael Raman MD Aug 31, 2018 13:29
--- NOTE | 2018-08-31 14:37 | Infectious Diseases Prog Note ---
Assessment/Plan Assessment/Plan Assessment: PNA -08/31 CXR: Improved but persistent left basilar consolidation and/or atelectasis, over 2 days -08/18 CXR: Interim partial improvement of left basilar infiltrate, over 3 days -CTA chest: No evidence of pulmonary embolism. Bronchiectasis with mild volume loss and consolidation in the left lower lobe, which may suggest atelectasis versus pneumonia. Small layering left pleural effusion. -sp cx MDR ABC (I Ceftazidime; S Amikacin), PsA (arce S); 08/24 sp cx S.marcenses (R ancef otherwise S); 08/28 S. marcescens(R ancef; otherwise S) -influenza sc neg -CXR: Opacity in the left lung base which may represent pleural effusion and atelectasis. Pneumonia is not excluded. Low grade fever x1, SP Leukocytosis, increased, now imrpoving -08/29 u/a wbc tnct; ucx ESBL K. pna (S amikacin, ertapanem; R tigecycline) -08/24 u/a neg -Bcx NTD -u/a neg Lactic acidosis, SP hx of cardiac arrest hx of cerebral hemorrhage c/w aphasia and R hemiplegia chronic trach and peg HLD HTN bed bound SNF resident Plan: -Continue IV Amikacin and INH colistin #12/14 for MDR ABC and ESBL K.pna URI and continuee Tigecycline #5/5given leukocytosis (double coverage for MDR ABC) -08/24 SP Zosyn # 8 -08/18 SP IV Vancomycin #2 -08/16 SP Zosyn x1 -f.u Repeat cultuers -f.u cx -Monitor CBC/CMP, temperatures -aspiration precautions -PEG/Trach care Discussed with RN. Subjective Allergies: Coded Allergies: MILK (Verified Allergy, Unknown, 08/16/18) Subjective afebrile wbcn improving Bcx NTD fio2 40% Objective Vital Signs Last 24 Hour Vital Signs Date Time Temp Pulse Resp B/P (MAP) Pulse Ox O2 Delivery O2 Flow Rate FiO2 08/31/18 13:26 63 16 40 08/31/18 12:39 113/70 08/31/18 12:00 40 08/31/18 12:00 97.7 61 16 113/70 (84) 100 08/31/18 12:00 Mechanical Ventilator 08/31/18 12:00 59 08/31/18 11:17 62 16 40 08/31/18 10:00 Mechanical Ventilator 08/31/18 10:00 Mechanical Ventilator 08/31/18 08:52 64 16 40 08/31/18 08:38 61 141/67 08/31/18 08:00 61 08/31/18 08:00 Mechanical Ventilator 08/31/18 08:00 40 08/31/18 08:00 98.1 61 18 141/67 (91) 100 08/31/18 07:06 61 16 40 08/31/18 06:58 110/65 08/31/18 05:13 56 16 40 08/31/18 04:00 98.5 64 16 110/65 (80) 97 08/31/18 04:00 40 08/31/18 04:00 Mechanical Ventilator 08/31/18 04:00 59 08/31/18 03:07 60 16 40 08/31/18 00:53 53 16 40 08/31/18 00:36 122/75 08/31/18 00:00 98.4 55 16 122/75 (91) 100 08/31/18 00:00 Mechanical Ventilator 08/31/18 00:00 63 08/30/18 22:41 64 20 40 08/30/18 22:23 65 18 100 Mechanical Ventilator 15.0 40 08/30/18 22:13 66 18 100 Mechanical Ventilator 15.0 40 08/30/18 21:25 51 17 40 08/30/18 20:00 40 08/30/18 20:00 Mechanical Ventilator 08/30/18 20:00 50 08/30/18 20:00 98.0 55 15 139/80 (99) 100 08/30/18 19:09 51 18 40 08/30/18 17:26 129/72 08/30/18 16:55 62 18 40 08/30/18 16:00 98.6 53 16 129/65 (86) 100 08/30/18 16:00 40 08/30/18 16:00 52 08/30/18 16:00 Mechanical Ventilator 08/30/18 14:58 62 16 100 Mechanical Ventilator 15.0 40 08/30/18 14:48 60 16 99 Mechanical Ventilator 15.0 40 08/30/18 14:48 40 08/30/18 14:47 59 16 40 Height (Feet): 5 Height (Inches): 4.00 Weight (Pounds): 186 Objective HEENT: Pupils were round, equal, and reactive to light. Sclerae was white. . ENT, mucous membranes were not dehydrated. NECK: Supple. There was no goiter. No mass. No lymphadenopathy. There was no JVD. No bruits. LUNGS: Clear with decreased breath sounds in both bases, more on the left than on the right. HEART: There was normal S1 and normal S2. There was no murmur. No arrhythmia. No S3. No S4. No pericardial rub. ABDOMEN: Soft. Nontender without organomegaly. There were no masses palpable. Normal bowel sounds without bruits. There was no guarding. No rebound tenderness. No ascites. EXTREMITIES: No cyanosis, no clubbing, and no edema. Extremities were warm. Microbiology Date/Time Source Procedure Growth Status 08/28/18 19:42 Sputum Induced Gram Stain - Final Complete 08/28/18 19:42 Sputum Culture - Final Serratia Marcescens Complete 08/29/18 02:30 Urine,Clean Catch Urine Culture - Preliminary Klebsiella Pneumoniae Esbl Resulted Laboratory Tests Test 08/30/18 15:14 08/31/18 05:30 Amikacin Level Trough < 2.0 ug/mL (4.0-8.0) L White Blood Count 12.3 K/UL (4.8-10.8) H Red Blood Count 4.03 M/UL (4.20-5.40) L Hemoglobin 12.4 G/DL (12.0-16.0) Hematocrit 38.0 % (37.0-47.0) Mean Corpuscular Volume 94 FL (80-99) Mean Corpuscular Hemoglobin 30.7 PG (27.0-31.0) Mean Corpuscular Hemoglobin Concent 32.6 G/DL (32.0-36.0) Red Cell Distribution Width 11.9 % (11.6-14.8) Platelet Count 318 K/UL (150-450) Mean Platelet Volume 6.8 FL (6.5-10.1) Neutrophils (%) (Auto) 61.7 % (45.0-75.0) Lymphocytes (%) (Auto) 29.7 % (20.0-45.0) Monocytes (%) (Auto) 5.7 % (1.0-10.0) Eosinophils (%) (Auto) 1.8 % (0.0-3.0) Basophils (%) (Auto) 1.1 % (0.0-2.0) Sodium Level 141 MMOL/L (136-145) Potassium Level 4.1 MMOL/L (3.5-5.1) Chloride Level 106 MMOL/L (98-107) Carbon Dioxide Level 23 MMOL/L (21-32) Anion Gap 12 mmol/L (5-15) Blood Urea Nitrogen 32 mg/dL (7-18) H Creatinine 0.5 MG/DL (0.55-1.30) L Estimat Glomerular Filtration Rate > 60 mL/min (>60) Glucose Level 131 MG/DL (74-106) H Calcium Level 9.3 MG/DL (8.5-10.1) Phosphorus Level 3.7 MG/DL (2.5-4.9) Magnesium Level 2.1 MG/DL (1.8-2.4) Total Bilirubin 0.2 MG/DL (0.2-1.0) Aspartate Amino Transf (AST/SGOT) 9 U/L (15-37) L Alanine Aminotransferase (ALT/SGPT) 49 U/L (12-78) Alkaline Phosphatase 91 U/L (46-116) Total Protein 7.3 G/DL (6.4-8.2) Albumin 2.9 G/DL (3.4-5.0) L Globulin 4.4 g/dL Albumin/Globulin Ratio 0.7 (1.0-2.7) L Current Medications Medications (Trade) Dose Ordered Sig/Marzena Route PRN Reason Start Time Stop Time Status Last Admin Dose Admin Acetaminophen (Tylenol) 650 mg Q4H PRN GT FEVER/PAIN 08/26/18 20:20 09/15/18 20:19 08/31/18 11:07 Amikacin Protocol (Amikacin pharmacy to dose) 1 ea DAILY PRN MISC Per rx protocol 08/19/18 12:45 09/18/18 12:44 Amikacin Sulfate 1000 mg/Sodium Chloride 114 ml @ 114 mls/hr Q24H IV 08/25/18 16:00 09/01/18 15:59 08/30/18 16:53 Amlodipine Besylate (Norvasc) 5 mg DAILY GT 08/17/18 09:00 09/16/18 08:59 08/31/18 08:38 Artificial Tears (Akwa-Tears) 2 drop Q4H PRN BOTH EYES Dry Eyes 08/28/18 00:30 09/27/18 00:29 08/31/18 12:43 Colistimethate Sodium (Colistin *inhalation use only*) 150 mg Q12HR@10,22 INH 08/30/18 13:30 09/03/18 09:59 08/30/18 22:13 Dextrose (Dextrose 50%) 25 ml Q30M PRN IV Hypoglycemia 08/16/18 16:00 09/15/18 15:59 Dextrose (Dextrose 50%) 50 ml Q30M PRN IV Hypoglycemia 08/16/18 16:00 09/15/18 15:59 Gentamicin Sulfate (Garamycin 0.3% Opt Soln) 1 drop TID LEFT EYE 08/23/18 18:00 09/02/18 13:01 08/31/18 12:43 Heparin Sodium (Porcine) (Heparin 5000 units/ml) 5,000 units EVERY 12 HOURS SUBQ 08/16/18 21:00 09/15/18 20:59 08/31/18 08:48 Hydralazine HCl (Apresoline) 10 mg EVERY 6 HOURS GT 08/16/18 18:00 09/15/18 17:59 08/31/18 12:39 Insulin Aspart (NovoLOG) Q6HR SUBQ 08/16/18 18:00 09/15/18 17:59 08/31/18 06:44 Lactulose (Cephulac) 20 gm TWICE A DAY GT 08/16/18 18:00 09/15/18 17:59 08/31/18 08:39 Lansoprazole (Prevacid) 30 mg DAILY GT 08/20/18 09:00 09/19/18 08:59 08/31/18 08:37 Mometasone Furoate (Elocon) 1 applic DAILY PRN TOPIC Itching/Pruritis 08/28/18 00:30 09/27/18 00:29 08/28/18 08:05 Ondansetron HCl (Zofran) 4 mg Q6H PRN IVP Nausea & Vomiting 08/16/18 14:00 09/15/18 13:59 Polyethylene Glycol (Miralax) 17 gm DAILYPRN PRN GT Constipation 08/16/18 14:00 09/15/18 13:59 08/16/18 21:09 Tigecycline 50 mg/ Sodium Chloride 110 ml @ 220 mls/hr Q12HR IVPB 08/26/18 23:00 09/02/18 22:59 08/31/18 08:38 Yeny Webb M.D. Aug 31, 2018 14:37
--- NOTE | 2018-08-31 15:18 | NUR ---
MAGAZINE WORKERLEAD PYTHON DEVELOPER SI:CP. VENT DEPENDENT VS: BP 113/70, P 59, T 97.7, RR 16, SpO2 100 VENT AC 16, TV 500, PEEP 5.0, FiO2 40 WBC 12.3M, RBC 4.03, BUN 32, CR 0.5 CXR Impression: Improved but persistent left basilar consolidation and/or atelectasis, over 2 days. IS:COLISTIN 150mg INH TIGECYCLINE 50mg 110 ml IVPB PREVACID 30mg GT NORVASC 5mg GT HEPARIN SUBQ APRESOLINE 10mg GT LACTULOSE 20gm GT SDU STATUS
[2018-08-31] MEDS ORDERED: NS 275ml ONE (15:46)
[2018-08-31] MEDS ORDERED: Tubing IV Secondary IV ONE (15:46)
[2018-08-31 16:00] VITALS: BP 153/82
[2018-08-31] MEDS: Amikacin 1,000 MG in NS 110 ML IV SCH (16:38)
[2018-08-31] MEDS ORDERED: traMADol 50mg tab GT PRN (18:00)
--- NOTE | 2018-08-31 19:20 | NUR ---
NURSE NOTES: Pt's abdominal pain and headache not responding to tramadol. Endorsed to night club manager nurse Barbara. She will inform Dr. Fox and continue to monitor pt's pain. GI consult was also obtained from Dr. Mcgovern today to assess pt's abd pain. Otherwise, pt is not in cardiopulmonary distress.
--- NOTE | 2018-08-31 19:20 | NUR ---
HAND-OFF: Report given to AUGIE Jimenez. Pt in stable condition.
--- NOTE | 2018-08-31 19:21 | NUR ---
NURSE NOTES: BEDSIDE REPORT RECEIVED FROM AUGIE PALUMBO. 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 PT APPEARS TO BE X2-3, ABLE TO MAKE NEEDS KNOWN, [place] SPEAKING. INNERSOLE FITTER SHOWING NSR/RYANNE, MD AWARE. VENTILATOR PORTEX 7, AC 16, TV 500, FIO2 40, PEEP 5; TOLERATING WELL. VITAL AF 1.2 @ 65 X 20, CURRENTLY OFF FROM 1280-1614, 100 WF. SKIN IS CLEAN, DRY, DRESSING INTACT. PURWICK DRAINING ANDREW URINE. ACCUCHEK Q6, HX OF DM2, AND TF BUT SEEMS TO HAVE CONTROLLED HX OF PAST GLUCOSE LEVELS, WILL CHECK @ 0000 AND FOLLOW UP W/ DR. VALENZUELA. RH 22G ASYMPTOMATIC. LABS OK. PT COMPLAINS OF 01/09, REPORTS TO HAVE BEEN SWEATING, WAS GIVEN TRAMADOL, WILL FOLLOW UP WITH PRN TYLENOL, SEE EMAR. WILL SPEAK TO MD REGARDING PAIN, NOTE TO FOLLOW. BED IS LOCKED IN LOWEST POSITION, SR X3, CALL OVALLES W/ IN REACH, BED ALARM ON, SZ PRECAUTIONS CTND. WILL CONTINUE TO MONITOR AND FOLLOW W/ PLAN OF CARE.
[2018-08-31 20:00] VITALS: BP 133/73
[2018-09-01] VITALS: BP 112/76
--- NOTE | 2018-09-01 | NUR ---
NURSE NOTES: SPOKE W/ DR. VALENZUELA REGARDING 8/10 PAIN LEVEL AFTER TRAMADOL AND TYLENOL. ORDER FOR AMITRIPTYLINE 10 MG HS. ALSO SPOKE W/ HIM REGARDING ACCUCHEK HX AND CONTROLLED GLUCOSE LEVELS. ORDER HGBA1C TO DETERMINE NEED OF Q6 ACCUCHEK. WILL ORDER AND CARRY OUT.
[2018-09-01 04:00] VITALS: BP 117/67
[2018-09-01 05:42] LABS: HEMOGLOBIN 11.9 G/DL (12.0-16.0); LYMPHOCYTES % (AUTO) 32.8 % (20.0-45.0); MEAN CORPUSCULAR VOLUME 95 FL (80-99); MONOCYTES % (AUTO) 5.5 % (1.0-10.0); NEUTROPHILS % (AUTO) 58.8 % (45.0-75.0); PLATELET COUNT 277 K/UL (150-450); RED BLOOD COUNT 3.77 M/UL (4.20-5.40); RED CELL DISTRIBUTION WIDTH 11.9 % (11.6-14.8); WHITE BLOOD COUNT 11.9 K/UL (4.8-10.8)
[2018-09-01 05:50] LABS: ALANINE AMINOTRANSFERASE 39 U/L (12-78); ALBUMIN 2.8 G/DL (3.4-5.0); ALBUMIN/GLOBULIN RATIO 0.7 (1.0-2.7); ALKALINE PHOSPHATASE 90 U/L (46-116); ANION GAP 10 mmol/L (5-15); ASPARTATE AMINO TRANSFERASE 5 U/L (15-37); BILIRUBIN,TOTAL 0.2 MG/DL (0.2-1.0); BLOOD UREA NITROGEN 26 mg/dL (7-18); CARBON DIOXIDE 26 MMOL/L (21-32); CHLORIDE 104 MMOL/L (98-107); CREATININE 0.5 MG/DL (0.55-1.30); PHOSPHORUS 4.1 MG/DL (2.5-4.9); POTASSIUM 3.9 MMOL/L (3.5-5.1); SODIUM 140 MMOL/L (136-145)
[2018-09-01] MEDS: NovoLOG Insulin Flexpen SUBQ SCH ×3 (06:00→17:37)
[2018-09-01] MEDS: HydrALAZINE 10mg Tab GT SCH ×3 (06:00→17:28)
--- NOTE | 2018-09-01 07:10 | NUR ---
HAND-OFF: Report given to AUGIE HARPER.
--- NOTE | 2018-09-01 07:15 | NUR ---
NURSE NOTES: Patient received from Barbara Gilliam Patient in bed awake with no signs of distress. Bed at lowest position and call light in reach. Will continue to monitor.
[2018-09-01 08:00] VITALS: BP 112/64
[2018-09-01] MEDS: Lactulose 20gm/30ml UDC GT SCH (09:23)
[2018-09-01] MEDS: Gentamicin 0.3% Opth Soln 5ml LEFT EYE SCH ×3 (09:23→17:28)
[2018-09-01] MEDS: Heparin 5000 units/ml inj SUBQ SCH ×2 (09:26→20:08)
--- NOTE | 2018-09-01 09:30 | Progress Note ---
DATE: 08/31/2018 SUBJECTIVE: The patient is awake, alert, afebrile, and hemodynamically stable. . PHYSICAL EXAMINATION: VITAL SIGNS: Blood pressure is 132/73, pulse is 60, respirations are 17, and temperature 97.3. HEENT: Eyes were normal. ENT, mucous membranes were moist and intact. NECK: Supple with no JVD without lymph nodes. Tracheostomy site is clean. LUNGS: Clear without rhonchi, rales, or wheezing. Secretions are small, thin, and gao. HEART: Normal sounds with regular beats. There is no S3, S4, or pericardial rub. ABDOMEN: Soft and nontender with normal bowel sounds. Gastrostomy site is clean. EXTREMITIES: Warm without cyanosis, clubbing, or edema. LABORATORY DATA: Hemoglobin is 12.0, hematocrit 35.0, MCV of 94, WBC of 12.3, and platelets . The patient , however, amitriptyline 10 mg will be given. . We will add to the antibiotic treatment. . Repeat laboratory tests will be done in the a.m. Karissa Fox M.D. DR: WALDO JOB#: [id number] CC:
[2018-09-01] MEDS: Colistin for inhalation INH SCH (10:06)
--- NOTE | 2018-09-01 10:53 | NUR ---
RD ASSESSMENT & RECOMMENDATIONS SEE CARE ACTIVITY FOR COMPLETE ASSESSMENT DAILY ESTIMATED NEEDS: Needs based on Critical care, sepsis 61kg adj 22-30 kcals/kg 4332-9551 total kcals 1.2-2 g protein/kg 73-122 g total protein 25-30 mL/kg 5253-7587 total fluid mLs NUTRITION DIAGNOSIS: Swallowing difficulty r/t respiratory status as evidenced by pt is vent dep via trach w/ PEG. CURRENT TF:Vital AF 1.2 @65ml/hr x20 hrs ENTERAL NUTRITION RECOMMENDATIONS: VITAL AF 1.2 @65ml/hr x20 hrs to provide 1300ml, 1560 kcal, 98g pro, 1054ml free H2o - Continue w/ current TF - Flush per MD/ HOB over 30 degrees ADDITIONAL RECOMMENDATIONS: 1) MONITOR FOR SIGNS OF INTOLERANCE TO FORMULA PT PREVIOUSLY ON SOY BASED FORMULA 2) Monitor lytes, BG daily 3) RE-calibrate bed scale as able: Pt is 178# from [facility] (per EMR:190#)
--- NOTE | 2018-09-01 10:59 | GI Initial Consult Note ---
History of Present Illness General Date patient seen: Sep 01, 2018 Time patient seen: 10:55 Reason for Hospitalization: Chest Pain Referring physician: ANNIA VALENZUELA Reason for Consultation: Diarrhea Present Illness HPI Patient is a 57-year-old female brought in by EMS for chest discomfort and increased difficulty breathing. Patient had been given aspirin as well as nitroglycerin by EMS. 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 Patient was noted to be sent in from [facility]. She is noted to have increased tracheal secretions as well as nasal congestion and coughing.Patient was noted to have G-tube dependence. Patient was noted to be awake and able to speak English. GI consulted for anemia. ROS limited, patient nonverbal at baseline. Patient seen awake alert no apparent distress with no active signs and symptoms of nausea vomiting or diarrhea. Discussed with the RN, patient had bowel movement yesterday and is currently on lactulose. Patient is ventilator and tracheostomy dependent, G-tube dependent. RN report patient is tolerating tube feedings. Unknown history of colonoscopy. Home Meds Active Scripts Lactulose (LACTULOSE*) 20 Gm/30 Ml Solution, 30 ML ORAL BID, #240 ML 0 Refills Prov:Cezar Javed MD 01/21/18 Polymyxin/Trimethoprim (Polytrim Eye Drops) 10 Ml Drops, 2 DROP OPHTHALM THREE TIMES A DAY, #1 EA Instill in affected eye for 7 days Prov:Cezar Javed MD 01/21/18 Cephalexin* (KEFLEX*) 500 Mg Capsule, 500 MG ORAL TID, #21 CAP Prov:Cezar Javed MD 01/21/18 Reported Medications Ergocalciferol (Vitamin D2)* (VITAMIN D*) 50,000 Unit Capsule, 73337 UNIT GT ONCE A WEEK, CAP 08/16/18 Cran/Vitc/Mannose/Inulin/Brom (UTI-STAT LIQUID) 3,875 Mg/30 Ml Liquid, 3875 MG GT TWICE A DAY, ML 08/16/18 Amino Acids/Protein Hydrolys (PRO-STAT LIQUID) 30 Ml Liquid.pkt, 30 ML GT DAILY , ML 08/16/18 Promethazine Hcl (PROMETHAZINE HCL*) 6.25 Mg/5 Ml Syrup, 5 ML GT Q6H, #120 ML 0 Refills 08/16/18 Amlodipine Besylate (Norvasc) 5 Mg Tablet, 5 MG GT DAILY, TAB 08/16/18 Multivitamin With Minerals (MULTIVITAMINS WITH MINERALS*) 1 Each Tablet, 1 TAB GT DAILY, TAB 08/16/18 Lactulose (LACTULOSE*) 20 Gm/30 Ml Solution, 30 ML GT TWICE A DAY, ML 0 Refills 08/16/18 Levetiracetam (Keppra) 100 Mg/1 Ml Solution, 5 ML GT Q12HR, #150 ML 0 Refills 08/16/18 Ibuprofen* (MOTRIN*) 600 Mg Tablet, 400 MG GT Q6H PRN for For Pain, #30 TAB 08/16/18 Hydralazine Hcl* (HYDRALAZINE HCL*) 10 Mg Tablet, 10 MG GT EVERY 6 HOURS, TAB 08/16/18 Na Phos,M-B/Na Phos,Di-Ba* (FLEET ENEMA*) 133 Ml Enema, 133 ML RECTAL PRN, ML 0 Refills 08/16/18 Famotidine (FAMOTIDINE) 20 Mg Tablet, 20 MG GT TWICE A DAY, #60 TAB 0 Refills 08/16/18 Docusate Sodium* (COLACE*) 100 Mg Capsule, 100 MG GT DAILY, CAP 08/16/18 Chlorhexidine Gluconate* (HIBICLENS*) 118 Ml Liquid, 15 ML ORAL, ML 08/16/18 Atorvastatin Calcium* (ATORVASTATIN CALCIUM*) 20 Mg Tablet, 10 MG GT BEDTIME, TAB 08/16/18 Dextran 70/Hypromellose (ARTIFICIAL TEARS EYE DROPS*) 15 Ml Drops, 2 DROP BOTH EYES, #15 ML 0 Refills 08/16/18 Albuterol Sulfate* (ALBUTEROL SULFATE HHN*) 2.5 Mg/3 Ml Vial.neb, 3 ML INH Q4H PRN for Shortness of Breath, EA 08/16/18 Lactobacillus Acidophilus/Pect (ACIDOPHILUS-PECTIN TAB CHEW) 1 Each Tab.chew, 1 EACH GT DAILY, TAB 08/16/18 Med list reviewed/reconciled: Yes Allergies: Coded Allergies: MILK (Verified Allergy, Unknown, 08/16/18) Patient History History Provided By: Medical Record PMH Narrative Past Medical History: see triage record Reviewed Nursing Documentation: PMH: Agreed; PSxH: Agreed Nursing Documentation-PM Past Medical History: No History, Except For Hx Cardiac Problems: Yes - high cholesterol Hx Hypertension: Yes Social History: Denies: smoking, alcohol use, drug use, other Review of Systems All Other Systems: negative except mentioned in HPI Physical Exam Vital Signs Date Time Temp Pulse Resp B/P (MAP) Pulse Ox O2 Delivery O2 Flow Rate FiO2 08/28/18 07:22 59 19 40 08/28/18 07:54 98.2 138/76 (96) 100 08/28/18 08:00 Mechanical Ventilator 08/30/18 14:48 15.0 Sp02 EP Interpretation: reviewed, normal Labs Laboratory Tests Test 09/01/18 04:20 White Blood Count 11.9 K/UL (4.8-10.8) H Red Blood Count 3.77 M/UL (4.20-5.40) L Hemoglobin 11.9 G/DL (12.0-16.0) L Hematocrit 36.0 % (37.0-47.0) L Mean Corpuscular Volume 95 FL (80-99) Mean Corpuscular Hemoglobin 31.5 PG (27.0-31.0) H Mean Corpuscular Hemoglobin Concent 33.0 G/DL (32.0-36.0) Red Cell Distribution Width 11.9 % (11.6-14.8) Platelet Count 277 K/UL (150-450) Mean Platelet Volume 6.8 FL (6.5-10.1) Neutrophils (%) (Auto) 58.8 % (45.0-75.0) Lymphocytes (%) (Auto) 32.8 % (20.0-45.0) Monocytes (%) (Auto) 5.5 % (1.0-10.0) Eosinophils (%) (Auto) 2.0 % (0.0-3.0) Basophils (%) (Auto) 1.0 % (0.0-2.0) Sodium Level 140 MMOL/L (136-145) Potassium Level 3.9 MMOL/L (3.5-5.1) Chloride Level 104 MMOL/L (98-107) Carbon Dioxide Level 26 MMOL/L (21-32) Anion Gap 10 mmol/L (5-15) Blood Urea Nitrogen 26 mg/dL (7-18) H Creatinine 0.5 MG/DL (0.55-1.30) L Estimat Glomerular Filtration Rate > 60 mL/min (>60) Glucose Level 133 MG/DL (74-106) H Hemoglobin A1c 5.7 % (4.3-6.0) Calcium Level 9.0 MG/DL (8.5-10.1) Phosphorus Level 4.1 MG/DL (2.5-4.9) Magnesium Level 2.0 MG/DL (1.8-2.4) Total Bilirubin 0.2 MG/DL (0.2-1.0) Aspartate Amino Transf (AST/SGOT) 5 U/L (15-37) L Alanine Aminotransferase (ALT/SGPT) 39 U/L (12-78) Alkaline Phosphatase 90 U/L (46-116) Total Protein 6.9 G/DL (6.4-8.2) Albumin 2.8 G/DL (3.4-5.0) L Globulin 4.1 g/dL Albumin/Globulin Ratio 0.7 (1.0-2.7) L General Appearance: well appearing, no apparent distress, alert Head: normocephalic EENT: PERRL/EOMI, normal ENT inspection Neck: supple, tracheotomy Respiratory: normal breath sounds, no respiratory distress Cardiovascular: normal rate Gastrointestinal: normal inspection, non tender, soft, normal bowel sounds, non -distended, gt Rectal: deferred Genitourinary: no CVA tenderness Neurologic: alert, responsive Skin: normal inspection, normal color, no rash, warm/dry, palpation normal, well hydrated Lymphatic: normal inspection, no adenopathy Current Medications Current Medications Medications (Trade) Dose Ordered Sig/Marzena Route PRN Reason Start Time Stop Time Status Last Admin Dose Admin Acetaminophen (Tylenol) 650 mg Q4H PRN GT FEVER/PAIN 08/26/18 20:20 09/15/18 20:19 08/31/18 20:17 Amikacin Protocol (Amikacin pharmacy to dose) 1 ea DAILY PRN MISC Per rx protocol 08/19/18 12:45 09/18/18 12:44 Amikacin Sulfate 1000 mg/Sodium Chloride 114 ml @ 114 mls/hr Q24H IV 08/25/18 16:00 09/01/18 15:59 08/31/18 16:38 Amitriptyline HCl (Elavil) 10 mg BEDTIME ORAL 09/01/18 21:00 10/01/18 20:59 Amlodipine Besylate (Norvasc) 5 mg DAILY GT 08/17/18 09:00 09/16/18 08:59 09/01/18 09:24 Artificial Tears (Akwa-Tears) 2 drop Q4H PRN BOTH EYES Dry Eyes 08/28/18 00:30 09/27/18 00:29 08/31/18 17:51 Colistimethate Sodium (Colistin *inhalation use only*) 150 mg Q12HR@10,22 INH 08/30/18 13:30 09/03/18 09:59 09/01/18 10:06 Dextrose (Dextrose 50%) 25 ml Q30M PRN IV Hypoglycemia 08/16/18 16:00 09/15/18 15:59 Dextrose (Dextrose 50%) 50 ml Q30M PRN IV Hypoglycemia 08/16/18 16:00 09/15/18 15:59 Gentamicin Sulfate (Garamycin 0.3% Opt Soln) 1 drop TID LEFT EYE 08/23/18 18:00 09/02/18 13:01 09/01/18 09:23 Heparin Sodium (Porcine) (Heparin 5000 units/ml) 5,000 units EVERY 12 HOURS SUBQ 08/16/18 21:00 09/15/18 20:59 09/01/18 09:26 Hydralazine HCl (Apresoline) 10 mg EVERY 6 HOURS GT 08/16/18 18:00 09/15/18 17:59 08/31/18 17:51 Insulin Aspart (NovoLOG) Q6HR SUBQ 08/16/18 18:00 09/15/18 17:59 08/31/18 06:44 Lactulose (Cephulac) 20 gm TWICE A DAY GT 08/16/18 18:00 09/15/18 17:59 09/01/18 09:23 Lansoprazole (Prevacid) 30 mg DAILY GT 08/20/18 09:00 09/19/18 08:59 09/01/18 09:24 Mometasone Furoate (Elocon) 1 applic DAILY PRN TOPIC Itching/Pruritis 08/28/18 00:30 09/27/18 00:29 08/28/18 08:05 Ondansetron HCl (Zofran) 4 mg Q6H PRN IVP Nausea & Vomiting 08/16/18 14:00 09/15/18 13:59 Polyethylene Glycol (Miralax) 17 gm DAILYPRN PRN GT Constipation 08/16/18 14:00 09/15/18 13:59 08/16/18 21:09 Tramadol HCl (Ultram) 50 mg Q8H PRN GT For Pain 08/31/18 18:00 09/07/18 17:59 08/31/18 18:33 GI: Plan Problems: (1) Anemia (2) Diarrhea (3) Feeding by G-tube (4) Abdominal pain Plan Hold all stool softeners and laxatives Send for stool studies and C. difficile the patient has persistent diarrhea Will consider colonoscopy pending workup anemia work up OB stool r/o GI bleed monitor H&H, prn transfusions bowel regime ppi fu labs Discussed with Dr. Bernal. Thank you for this patient referral, we will follow. The patient was seen and examined at bedside and all new and available data was reviewed in the patients chart. I agree with the above findings, impression and plan. (Patient seen earlier today. Signature stamp does not reflect patient encounter time.). - MD Tegan Bartholomew,[facility] INSURANCE AUDITOR Sep 01, 2018 10:59
--- NOTE | 2018-09-01 11:01 | Pulmonolgy Critical Care Note ---
Critical Care - Asmt/Plan Problems: (1) Acute on chronic respiratory failure (2) Nosocomial pneumonia (3) Cardiac arrest (4) Feeding by G-tube (5) Sepsis Respiratory: monitor respiratory rate, adjust FIO2, CXR Cardiac: continue to monitor HR/BP Renal: F/U I&O, keep IV fluid, check electrolytes Infectious Disease: check cultures, continue antibiotics Gastrointestinal: continue feedings/current rate Endocrine: monitor blood sugar, check HgA1C Hematologic: transfuse if hgb<8.5 Neurologic: PRN Ativan, keep patient comfortable Affect: PRN ativan Prophylaxis: Heparin Notes Reviewed: event planning intern, renal Discussed with: nurses, consultants, field nurse case managerfield operations manager - Objective Last 24 Hour Vital Signs Date Time Temp Pulse Resp B/P (MAP) Pulse Ox O2 Delivery O2 Flow Rate FiO2 09/01/18 10:15 60 24 100 Mechanical Ventilator 40 09/01/18 10:05 58 17 99 Mechanical Ventilator 40 09/01/18 09:24 60 112/64 09/01/18 09:11 60 18 40 09/01/18 08:00 Mechanical Ventilator 09/01/18 08:00 99.0 57 16 112/64 (80) 98 09/01/18 08:00 40 09/01/18 07:55 60 09/01/18 07:00 65 16 40 09/01/18 06:00 117/67 09/01/18 05:00 62 16 40 09/01/18 04:00 56 09/01/18 04:00 40 09/01/18 04:00 97.7 60 16 117/67 (84) 100 09/01/18 04:00 Mechanical Ventilator 09/01/18 03:30 65 18 40 09/01/18 01:30 68 19 40 09/01/18 00:00 40 09/01/18 00:00 Mechanical Ventilator 09/01/18 00:00 97.2 60 16 112/76 (88) 100 09/01/18 00:00 63 08/31/18 23:47 112/76 08/31/18 23:18 65 18 40 08/31/18 23:00 69 28 100 Mechanical Ventilator 40 08/31/18 22:50 65 17 99 Mechanical Ventilator 40 08/31/18 21:24 71 19 40 08/31/18 20:00 60 08/31/18 20:00 Mechanical Ventilator 08/31/18 20:00 97.3 69 17 133/73 (93) 94 08/31/18 20:00 40 08/31/18 19:30 67 19 40 08/31/18 17:51 153/82 08/31/18 17:16 65 18 40 08/31/18 16:00 40 08/31/18 16:00 Mechanical Ventilator 08/31/18 16:00 98.2 73 26 153/82 (105) 98 08/31/18 16:00 73 08/31/18 15:14 64 18 40 08/31/18 13:26 63 16 40 08/31/18 12:39 113/70 08/31/18 12:00 40 08/31/18 12:00 97.7 61 16 113/70 (84) 100 08/31/18 12:00 Mechanical Ventilator 08/31/18 12:00 59 08/31/18 11:17 62 16 40 Status: awake Condition: critical HEENT: atraumatic Neck: full ROM Lungs: rales, rhonchi Heart: HR/BP stable Abdomen: soft, active bowel sounds Extremities: no C/C/E, edema Accucheck: 98 Critical Care - Subjective ROS Limited/Unobtainable: No Condition: critical FI02: 40 Vent Support Breath Rate: 16 Vent Support Mode: AC Vent Tidal Volume: 500 Sputum Amount: Small PEEP: 5.0 PIP: 26 Tube Feeding Amount: 65 I&O: Intake and Output 08/31/18 09/01/18 19:00 07:00 Intake Total 1289 ml 690 ml Output Total 400 ml Balance 889 ml 690 ml Intake Free Water 350 ml 60 ml IV Total 224 ml 110 ml Tube Feeding 715 ml 520 ml Output Urine Total 400 ml # Voids 1 1 # Bowel Movements 2 CXR: SILVANO Labs: Laboratory Tests Test 09/01/18 04:20 White Blood Count 11.9 K/UL (4.8-10.8) H Red Blood Count 3.77 M/UL (4.20-5.40) L Hemoglobin 11.9 G/DL (12.0-16.0) L Hematocrit 36.0 % (37.0-47.0) L Mean Corpuscular Volume 95 FL (80-99) Mean Corpuscular Hemoglobin 31.5 PG (27.0-31.0) H Mean Corpuscular Hemoglobin Concent 33.0 G/DL (32.0-36.0) Red Cell Distribution Width 11.9 % (11.6-14.8) Platelet Count 277 K/UL (150-450) Mean Platelet Volume 6.8 FL (6.5-10.1) Neutrophils (%) (Auto) 58.8 % (45.0-75.0) Lymphocytes (%) (Auto) 32.8 % (20.0-45.0) Monocytes (%) (Auto) 5.5 % (1.0-10.0) Eosinophils (%) (Auto) 2.0 % (0.0-3.0) Basophils (%) (Auto) 1.0 % (0.0-2.0) Sodium Level 140 MMOL/L (136-145) Potassium Level 3.9 MMOL/L (3.5-5.1) Chloride Level 104 MMOL/L (98-107) Carbon Dioxide Level 26 MMOL/L (21-32) Anion Gap 10 mmol/L (5-15) Blood Urea Nitrogen 26 mg/dL (7-18) H Creatinine 0.5 MG/DL (0.55-1.30) L Estimat Glomerular Filtration Rate > 60 mL/min (>60) Glucose Level 133 MG/DL (74-106) H Hemoglobin A1c 5.7 % (4.3-6.0) Calcium Level 9.0 MG/DL (8.5-10.1) Phosphorus Level 4.1 MG/DL (2.5-4.9) Magnesium Level 2.0 MG/DL (1.8-2.4) Total Bilirubin 0.2 MG/DL (0.2-1.0) Aspartate Amino Transf (AST/SGOT) 5 U/L (15-37) L Alanine Aminotransferase (ALT/SGPT) 39 U/L (12-78) Alkaline Phosphatase 90 U/L (46-116) Total Protein 6.9 G/DL (6.4-8.2) Albumin 2.8 G/DL (3.4-5.0) L Globulin 4.1 g/dL Albumin/Globulin Ratio 0.7 (1.0-2.7) L Curtis Mcgovern MD Sep 01, 2018 11:01
--- NOTE | 2018-09-01 11:26 | NUR ---
HOUSEKEEPING MANAGERHYPERBARIC NURSE SI:CP. VENT DEPENDENT VS: BP 112/64, P 57, T 99.0, RR 24 ON VENT AC , TV , PEEP , FiO2 40 WBC 11.9, RBC 3.77, Hgb 11.9, Hct 36.0, BUN 26, CR 0.5 IS:COLISTIN 150mg INH PREVACID 30mg GT AMLODIPINE 5mg GT LACTULOSE 20gm SDU STATUS
[2018-09-01 12:00] VITALS: BP 121/75
--- NOTE | 2018-09-01 14:07 | NUR ---
*-* INSURANCE *-* UPDATED CLINICALS HAVE BEEN FAXED TO: [employer] @ [phone] [employer] WILL TRACK THIS ADMISSION NO ROUTE SALES DRIVER ASSIGNED AT THIS TIME. PLEASE FAX THE REVIEW/CLINICAL P- [phone] f- [phone]
[2018-09-01 16:00] VITALS: BP 136/87
--- NOTE | 2018-09-01 16:14 | Infectious Diseases Prog Note ---
Assessment/Plan Assessment/Plan Assessment: PNA -08/31 CXR: Improved but persistent left basilar consolidation and/or atelectasis, over 2 days -08/18 CXR: Interim partial improvement of left basilar infiltrate, over 3 days -CTA chest: No evidence of pulmonary embolism. Bronchiectasis with mild volume loss and consolidation in the left lower lobe, which may suggest atelectasis versus pneumonia. Small layering left pleural effusion. -sp cx MDR ABC (I Ceftazidime; S Amikacin), PsA (arce S); 08/24 sp cx S.marcenses (R ancef otherwise S); 08/28 S. marcescens(R ancef; otherwise S) -influenza sc neg -CXR: Opacity in the left lung base which may represent pleural effusion and atelectasis. Pneumonia is not excluded. Low grade fever x1, SP Leukocytosis, increased, now imrpoving -08/29 u/a wbc tnct; ucx ESBL K. 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 Subjective Allergies: Coded Allergies: MILK (Verified Allergy, Unknown, 08/16/18) Subjective afebrile wbcn improving Bcx NTD fio2 40% +abd pain Objective Vital Signs Last 24 Hour Vital Signs Date Time Temp Pulse Resp B/P (MAP) Pulse Ox O2 Delivery O2 Flow Rate FiO2 09/01/18 15:05 57 16 40 09/01/18 13:09 65 19 40 09/01/18 12:56 121/75 09/01/18 12:00 98.4 58 18 121/75 (90) 100 09/01/18 12:00 40 09/01/18 12:00 Mechanical Ventilator 09/01/18 11:35 60 09/01/18 11:06 57 19 40 09/01/18 10:15 60 24 100 Mechanical Ventilator 40 09/01/18 10:05 58 17 99 Mechanical Ventilator 40 09/01/18 09:24 60 112/64 09/01/18 09:11 60 18 40 09/01/18 08:00 Mechanical Ventilator 09/01/18 08:00 99.0 57 16 112/64 (80) 98 09/01/18 08:00 40 09/01/18 07:55 60 09/01/18 07:00 65 16 40 09/01/18 06:00 117/67 09/01/18 05:00 62 16 40 09/01/18 04:00 56 09/01/18 04:00 40 09/01/18 04:00 97.7 60 16 117/67 (84) 100 09/01/18 04:00 Mechanical Ventilator 09/01/18 03:30 65 18 40 09/01/18 01:30 68 19 40 09/01/18 00:00 40 09/01/18 00:00 Mechanical Ventilator 09/01/18 00:00 97.2 60 16 112/76 (88) 100 09/01/18 00:00 63 08/31/18 23:47 112/76 08/31/18 23:18 65 18 40 08/31/18 23:00 69 28 100 Mechanical Ventilator 40 08/31/18 22:50 65 17 99 Mechanical Ventilator 40 08/31/18 21:24 71 19 40 08/31/18 20:00 60 08/31/18 20:00 Mechanical Ventilator 08/31/18 20:00 97.3 69 17 133/73 (93) 94 08/31/18 20:00 40 08/31/18 19:30 67 19 40 08/31/18 17:51 153/82 08/31/18 17:16 65 18 40 Height (Feet): 5 Height (Inches): 4.00 Weight (Pounds): 186 Objective HEENT: Pupils were round, equal, and reactive to light. Sclerae was white. . ENT, mucous membranes were not dehydrated. NECK: Supple. There was no goiter. No mass. No lymphadenopathy. There was no JVD. No bruits. LUNGS: Clear with decreased breath sounds in both bases, more on the left than on the right. HEART: There was normal S1 and normal S2. There was no murmur. No arrhythmia. No S3. No S4. No pericardial rub. ABDOMEN: Soft. Nontender without organomegaly. There were no masses palpable. Normal bowel sounds without bruits. There was no guarding. No rebound tenderness. No ascites. EXTREMITIES: No cyanosis, no clubbing, and no edema. Extremities were warm. Laboratory Tests Test 09/01/18 04:20 White Blood Count 11.9 K/UL (4.8-10.8) H Red Blood Count 3.77 M/UL (4.20-5.40) L Hemoglobin 11.9 G/DL (12.0-16.0) L Hematocrit 36.0 % (37.0-47.0) L Mean Corpuscular Volume 95 FL (80-99) Mean Corpuscular Hemoglobin 31.5 PG (27.0-31.0) H Mean Corpuscular Hemoglobin Concent 33.0 G/DL (32.0-36.0) Red Cell Distribution Width 11.9 % (11.6-14.8) Platelet Count 277 K/UL (150-450) Mean Platelet Volume 6.8 FL (6.5-10.1) Neutrophils (%) (Auto) 58.8 % (45.0-75.0) Lymphocytes (%) (Auto) 32.8 % (20.0-45.0) Monocytes (%) (Auto) 5.5 % (1.0-10.0) Eosinophils (%) (Auto) 2.0 % (0.0-3.0) Basophils (%) (Auto) 1.0 % (0.0-2.0) Sodium Level 140 MMOL/L (136-145) Potassium Level 3.9 MMOL/L (3.5-5.1) Chloride Level 104 MMOL/L (98-107) Carbon Dioxide Level 26 MMOL/L (21-32) Anion Gap 10 mmol/L (5-15) Blood Urea Nitrogen 26 mg/dL (7-18) H Creatinine 0.5 MG/DL (0.55-1.30) L Estimat Glomerular Filtration Rate > 60 mL/min (>60) Glucose Level 133 MG/DL (74-106) H Hemoglobin A1c 5.7 % (4.3-6.0) Calcium Level 9.0 MG/DL (8.5-10.1) Phosphorus Level 4.1 MG/DL (2.5-4.9) Magnesium Level 2.0 MG/DL (1.8-2.4) Total Bilirubin 0.2 MG/DL (0.2-1.0) Aspartate Amino Transf (AST/SGOT) 5 U/L (15-37) L Alanine Aminotransferase (ALT/SGPT) 39 U/L (12-78) Alkaline Phosphatase 90 U/L (46-116) Total Protein 6.9 G/DL (6.4-8.2) Albumin 2.8 G/DL (3.4-5.0) L Globulin 4.1 g/dL Albumin/Globulin Ratio 0.7 (1.0-2.7) L Current Medications Medications (Trade) Dose Ordered Sig/Marzena Route PRN Reason Start Time Stop Time Status Last Admin Dose Admin Acetaminophen (Tylenol) 650 mg Q4H PRN GT FEVER/PAIN 08/26/18 20:20 09/15/18 20:19 08/31/18 20:17 Amikacin Protocol (Amikacin pharmacy to dose) 1 ea DAILY PRN MISC Per rx protocol 08/19/18 12:45 09/18/18 12:44 Amitriptyline HCl (Elavil) 10 mg BEDTIME ORAL 09/01/18 21:00 10/01/18 20:59 Amlodipine Besylate (Norvasc) 5 mg DAILY GT 08/17/18 09:00 09/16/18 08:59 09/01/18 09:24 Artificial Tears (Akwa-Tears) 2 drop Q4H PRN BOTH EYES Dry Eyes 08/28/18 00:30 09/27/18 00:29 08/31/18 17:51 Colistimethate Sodium (Colistin *inhalation use only*) 150 mg Q12HR@10,22 INH 08/30/18 13:30 09/03/18 09:59 09/01/18 10:06 Dextrose (Dextrose 50%) 25 ml Q30M PRN IV Hypoglycemia 08/16/18 16:00 09/15/18 15:59 Dextrose (Dextrose 50%) 50 ml Q30M PRN IV Hypoglycemia 08/16/18 16:00 09/15/18 15:59 Gentamicin Sulfate (Garamycin 0.3% Opth Soln) 1 drop TID LEFT EYE 08/23/18 18:00 09/02/18 13:01 09/01/18 12:59 Heparin Sodium (Porcine) (Heparin 5000 units/ml) 5,000 units EVERY 12 HOURS SUBQ 08/16/18 21:00 09/15/18 20:59 09/01/18 09:26 Hydralazine HCl (Apresoline) 10 mg EVERY 6 HOURS GT 08/16/18 18:00 09/15/18 17:59 09/01/18 12:56 Insulin Aspart (NovoLOG) Q6HR SUBQ 08/16/18 18:00 09/15/18 17:59 09/01/18 12:58 Lansoprazole (Prevacid) 30 mg DAILY GT 08/20/18 09:00 09/19/18 08:59 09/01/18 09:24 Mometasone Furoate (Elocon) 1 applic DAILY PRN TOPIC Itching/Pruritis 08/28/18 00:30 09/27/18 00:29 08/28/18 08:05 Ondansetron HCl (Zofran) 4 mg Q6H PRN IVP Nausea & Vomiting 08/16/18 14:00 09/15/18 13:59 Polyethylene Glycol (Miralax) 17 gm DAILYPRN PRN GT Constipation 08/16/18 14:00 09/15/18 13:59 08/16/18 21:09 Tramadol HCl (Ultram) 50 mg Q8H PRN GT For Pain 08/31/18 18:00 09/07/18 17:59 08/31/18 18:33 Yeny Webb M.D. Sep 01, 2018 16:14
--- NOTE | 2018-09-01 18:57 | General Progress Note ---
Assessment/Plan Assessment/Plan Assessment/Plan # Leukocytosis with likely pna, Opacity in the left lung base which may represent pleural effusion and atelectasis. Pneumonia is not excluded --> has not received steriods --> trend 12-->13-->17-->14-->12-->11 --> smear reviewed, no major abnml noted --> on abx as per id --> per pulm/cc care as well # Anemia of chronic disease due to underlying chronic medical issues, multifactorial --> Anemia workup only if hgb <10 --> No evidence of hemolysis is noted, peripheral smear reviewed --> Hgb goal >7. Transfuse prn. --> Epogen or iron at this time is not particularly indicated --> Medications have been reviewed --> evaluate with Gi team prn, recs seen # hx of cardiac arrest, hx of cerebral hemorrhage c/w aphasia and R hemiplegia --> currently stable # Chronic trach and peg --> per pulm recs # HLD # HTN # bed bound # SNF resident The timing of this note does not necessarily reflect the time of the patient was seen. Greatly appreciate consultation! Subjective Constitutional: Denies: no symptoms, chills, diaphoresis, fever, malaise, weakness, other HEENT: Denies: no symptoms, eye pain, blurred vision, tearing, double vision, ear pain, ear discharge, nose pain, nose congestion, throat pain, throat swelling, mouth pain, mouth swelling, other Cardiovascular: Denies: no symptoms, chest pain, edema, irregular heart rate, lightheadedness, palpitations, syncope, other Respiratory: Denies: no symptoms, cough, orthopnea, shortness of breath, SOB with excertion, SOB at rest, sputum, stridor, wheezing, other Gastrointestinal/Abdominal: Denies: no symptoms, abdomen distended, abdominal pain, black stools, tarry stools, blood in stool, constipated, diarrhea, difficulty swallowing, nausea, poor appetite, poor fluid intake, rectal bleeding , vomiting, other Genitourinary: Denies: no symptoms, burning, discharge, frequency, flank pain, hematuria, incontinence, pain, urgency, other Allergies: Coded Allergies: MILK (Verified Allergy, Unknown, 08/16/18) Subjective 3.31: no events, on amikacin, no f/c 08/31: on vent, tolreating gtube feedings well, no complaints 09/01: on abx as per id, having headache doesn't respond to tylenol very well Objective Last 24 Hour Vital Signs Date Time Temp Pulse Resp B/P (MAP) Pulse Ox O2 Delivery O2 Flow Rate FiO2 09/01/18 17:29 62 16 40 09/01/18 17:28 136/87 09/01/18 16:57 60 09/01/18 16:00 Mechanical Ventilator 09/01/18 16:00 40 09/01/18 16:00 97.9 69 18 136/87 (103) 100 09/01/18 15:05 57 16 40 09/01/18 13:09 65 19 40 09/01/18 12:56 121/75 09/01/18 12:00 98.4 58 18 121/75 (90) 100 09/01/18 12:00 40 09/01/18 12:00 Mechanical Ventilator 09/01/18 11:35 60 09/01/18 11:06 57 19 40 09/01/18 10:15 60 24 100 Mechanical Ventilator 40 09/01/18 10:05 58 17 99 Mechanical Ventilator 40 09/01/18 09:24 60 112/64 09/01/18 09:11 60 18 40 09/01/18 08:00 Mechanical Ventilator 09/01/18 08:00 99.0 57 16 112/64 (80) 98 09/01/18 08:00 40 09/01/18 07:55 60 09/01/18 07:00 65 16 40 09/01/18 06:00 117/67 09/01/18 05:00 62 16 40 09/01/18 04:00 56 09/01/18 04:00 40 09/01/18 04:00 97.7 60 16 117/67 (84) 100 09/01/18 04:00 Mechanical Ventilator 09/01/18 03:30 65 18 40 09/01/18 01:30 68 19 40 09/01/18 00:00 40 09/01/18 00:00 Mechanical Ventilator 09/01/18 00:00 97.2 60 16 112/76 (88) 100 09/01/18 00:00 63 08/31/18 23:47 112/76 08/31/18 23:18 65 18 40 08/31/18 23:00 69 28 100 Mechanical Ventilator 40 08/31/18 22:50 65 17 99 Mechanical Ventilator 40 08/31/18 21:24 71 19 40 08/31/18 20:00 60 08/31/18 20:00 Mechanical Ventilator 08/31/18 20:00 97.3 69 17 133/73 (93) 94 08/31/18 20:00 40 08/31/18 19:30 67 19 40 Intake and Output 08/31/18 09/01/18 19:00 07:00 Intake Total 1289 ml 690 ml Output Total 400 ml Balance 889 ml 690 ml Intake Free Water 350 ml 60 ml IV Total 224 ml 110 ml Tube Feeding 715 ml 520 ml Output Urine Total 400 ml # Voids 1 1 # Bowel Movements 2 Laboratory Tests 09/01/18 04:20: White Blood Count 11.9H, Red Blood Count 3.77L, Hemoglobin 11.9L, Hematocrit 36.0L, Mean Corpuscular Volume 95, Mean Corpuscular Hemoglobin 31.5H, Mean Corpuscular Hemoglobin Concent 33.0, Red Cell Distribution Width 11.9, Platelet Count 277, Mean Platelet Volume 6.8, Neutrophils (%) (Auto) 58.8, Lymphocytes (% ) (Auto) 32.8, Monocytes (%) (Auto) 5.5, Eosinophils (%) (Auto) 2.0, Basophils ( %) (Auto) 1.0, Sodium Level 140, Potassium Level 3.9, Chloride Level 104, Carbon Dioxide Level 26, Anion Gap 10, Blood Urea Nitrogen 26H, Creatinine 0.5L , Estimat Glomerular Filtration Rate > 60, Glucose Level 133H, Hemoglobin A1c 5.7, Calcium Level 9.0, Phosphorus Level 4.1, Magnesium Level 2.0, Total Bilirubin 0.2, Aspartate Amino Transf (AST/SGOT) 5L, Alanine Aminotransferase ( ALT/SGPT) 39, Alkaline Phosphatase 90, Total Protein 6.9, Albumin 2.8L, Globulin 4.1, Albumin/Globulin Ratio 0.7L Height (Feet): 5 Height (Inches): 4.00 Weight (Pounds): 186 Objective PE HEENT: Pupils were round, equal, and reactive to light. Sclerae was white. . ENT, mucous membranes were not dehydrated. NECK: Supple. There was no goiter. No mass. ++ trach LUNGS: Clear with decreased breath sounds in both bases, more on the left than on the right. HEART: There was normal S1 and normal S2. There was no murmur. No arrhythmia. No S3. No S4. No pericardial rub. ABDOMEN: Soft. Nontender without organomegaly. ++ peg There was no guarding. No rebound tenderness. No ascites. EXTREMITIES: No cyanosis, no clubbing, and no edema. Extremities were warm. Asael Raman MD Sep 01, 2018 18:56
--- NOTE | 2018-09-01 19:10 | NUR ---
HAND-OFF: Report given to Barbara Gilliam RN.
--- NOTE | 2018-09-01 19:11 | NUR ---
NURSE NOTES: BEDSIDE REPORT RECEIVED FROM AUGIE HARPER. 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 PT APPEARS TO BE X2-3, ABLE TO MAKE NEEDS KNOWN, DIVEHI SPEAKING. 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 VENTILATOR PORTEX 7, AC 16, TV 500, FIO2 40, PEEP 5; TOLERATING WELL. VITAL AF 1.2 @ 65 X 20, CURRENTLY OFF FROM [id number], 100 WF. SKIN IS CLEAN, DRY, DRESSING INTACT. PURWICK DRAINING ANDREW URINE. ACCUCHEK Q6, HX OF DM2, AND TF BUT SEEMS TO HAVE CONTROLLED HX OF PAST GLUCOSE LEVELS, HBGA1C 5.7, WILL FOLLOW UP W/ DR. VALENZUELA. RH 22G ASYMPTOMATIC. LABS OK. BED IS LOCKED IN LOWEST POSITION, SR X3, CALL OVALLES W/ IN REACH, BED ALARM ON, SZ PRECAUTIONS CTND. WILL CONTINUE TO MONITOR AND FOLLOW W/ PLAN OF CARE.
[2018-09-01 20:00] VITALS: BP 136/73
[2018-09-02] VITALS: BP 104/61
[2018-09-02] MEDS: Colistin for inhalation INH SCH ×3 (00:10→21:42)
[2018-09-02 04:00] VITALS: BP 123/65
[2018-09-02] MEDS: HydrALAZINE 10mg Tab GT SCH ×5 (05:15→23:27)
[2018-09-02 05:47] LABS: BASOPHILS % (AUTO) 1.4 % (0.0-2.0); HEMATOCRIT 38.8 % (37.0-47.0); HEMOGLOBIN 12.8 G/DL (12.0-16.0); LYMPHOCYTES % (AUTO) 32.7 % (20.0-45.0); MEAN CORPUSCULAR VOLUME 95 FL (80-99); MONOCYTES % (AUTO) 6.2 % (1.0-10.0); NEUTROPHILS % (AUTO) 57.7 % (45.0-75.0); PLATELET COUNT 285 K/UL (150-450); RED CELL DISTRIBUTION WIDTH 11.6 % (11.6-14.8); WHITE BLOOD COUNT 12.5 K/UL (4.8-10.8)
[2018-09-02 05:52] LABS: INR 1.1 (0.9-1.1)
[2018-09-02 06:34] LABS: ALANINE AMINOTRANSFERASE 38 U/L (12-78); ALBUMIN/GLOBULIN RATIO 0.7 (1.0-2.7); ALKALINE PHOSPHATASE 105 U/L (46-116); ANION GAP 10 mmol/L (5-15); ASPARTATE AMINO TRANSFERASE 9 U/L (15-37); BILIRUBIN,TOTAL 0.5 MG/DL (0.2-1.0); BLOOD UREA NITROGEN 16 mg/dL (7-18); CALCIUM 10.1 MG/DL (8.5-10.1); CARBON DIOXIDE 28 MMOL/L (21-32); CHLORIDE 102 MMOL/L (98-107); CREATININE 0.4 MG/DL (0.55-1.30); FERRITIN 174 NG/ML (8-388); POTASSIUM 3.9 MMOL/L (3.5-5.1); SODIUM 140 MMOL/L (136-145)
[2018-09-02 07:00] LABS: % IRON SATURATION 51 % (15-50); IRON 101 ug/dL (50-175); TOTAL IRON BINDING CAPACITY 199 ug/dL (250-450)
--- NOTE | 2018-09-02 07:27 | NUR ---
HAND-OFF: Report given to AUGIE OLEARY.
--- NOTE | 2018-09-02 07:28 | NUR ---
NURSE NOTES: Received patient from AUGIE Jimenez. Patient alert at this time. Patient nonverbal. Patient complaining of headache at this time. Will administer tylenol when possible. 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 Patient on trach to ventilator with setting of AC 16, TV 500, FiO2 40%, and PEEP 5. Patient has G tube that is patent and asymptomatic and running vital AF at 65mL/hr at this time. Patient has a purewick that is in place and asymptomatic at this time. Patient skin intact. Patient has a right hand 22G PIV that is patent, asymptomatic, and saline locked at this time. Patient bed in low position with bed alarm on and call light in reach at this time. Patient has side rails padded for seizure precaution.
[2018-09-02 08:00] VITALS: BP 117/66
[2018-09-02] MEDS: Acetaminophen 650mg/20.3ml GT PRN ×3 (09:17→17:46)
[2018-09-02] MEDS: Gentamicin 0.3% Opth Soln 5ml LEFT EYE SCH ×2 (09:17→13:17)
--- NOTE | 2018-09-02 09:30 | Infectious Diseases Prog Note ---
Assessment/Plan Assessment/Plan PNA -08/31 CXR: Improved but persistent left basilar consolidation and/or atelectasis, over 2 days -08/18 CXR: Interim partial improvement of left basilar infiltrate, over 3 days -CTA chest: No evidence of pulmonary embolism. Bronchiectasis with mild volume loss and consolidation in the left lower lobe, which may suggest atelectasis versus pneumonia. Small layering left pleural effusion. -sp cx MDR ABC (I Ceftazidime; S Amikacin), PsA (arce S); 08/24 sp cx S.marcenses (R ancef otherwise S); 08/28 S. marcescens(R ancef; otherwise S) -influenza sc neg -CXR: Opacity in the left lung base which may represent pleural effusion and atelectasis. Pneumonia is not excluded. Low grade fever x1, SP Leukocytosis, increased, now imrpoving -08/29 u/a wbc tnct; ucx ESBL K. pna (S amikacin, ertapanem; R tigecycline), GNR #2 -08/24 u/a neg -Bcx NTD -u/a neg Lactic acidosis, SP hx of cardiac arrest hx of cerebral hemorrhage c/w aphasia and R hemiplegia chronic trach and peg HLD HTN bed bound SNF resident Plan: -Continue IV Amikacin and INH colistin #14/ for MDR ABC and ESBL K.pna URI -08/31 SP Tigecycline #5 -08/24 SP Zosyn # 8 -08/18 SP IV Vancomycin #2 -08/16 SP Zosyn x1 -f.u Repeat cultuers -f.u cx -Monitor CBC/CMP, temperatures -aspiration precautions -PEG/Trach care -Gi f.u Subjective Allergies: Coded Allergies: MILK (Verified Allergy, Unknown, 08/16/18) Subjective Afebrile Leukocytosis mild Objective Vital Signs Last 24 Hour Vital Signs Date Time Temp Pulse Resp B/P (MAP) Pulse Ox O2 Delivery O2 Flow Rate FiO2 09/02/18 09:18 59 117/66 09/02/18 07:09 62 16 40 09/02/18 05:15 123/65 09/02/18 05:08 59 17 40 09/02/18 04:00 53 09/02/18 04:00 40 09/02/18 04:00 97.4 59 16 123/65 (84) 100 09/02/18 04:00 Mechanical Ventilator 09/02/18 03:26 53 16 40 09/02/18 01:31 52 16 40 09/02/18 00:31 62 16 100 Mechanical Ventilator 40 09/02/18 00:03 53 16 40 09/02/18 00:03 53 16 100 Mechanical Ventilator 40 09/02/18 00:00 Mechanical Ventilator 09/02/18 00:00 40 09/02/18 00:00 101/65 09/02/18 00:00 98.6 53 16 104/61 (75) 100 09/02/18 00:00 54 09/01/18 20:56 56 16 40 09/01/18 20:20 66 17 40 09/01/18 20:00 60 09/01/18 20:00 40 09/01/18 20:00 97.5 66 20 136/73 (94) 100 09/01/18 20:00 Mechanical Ventilator 09/01/18 17:29 62 16 40 09/01/18 17:28 136/87 09/01/18 16:57 60 09/01/18 16:00 Mechanical Ventilator 09/01/18 16:00 40 09/01/18 16:00 97.9 69 18 136/87 (103) 100 09/01/18 15:05 57 16 40 09/01/18 13:09 65 19 40 09/01/18 12:56 121/75 09/01/18 12:00 98.4 58 18 121/75 (90) 100 09/01/18 12:00 40 09/01/18 12:00 Mechanical Ventilator 09/01/18 11:35 60 09/01/18 11:06 57 19 40 09/01/18 10:15 60 24 100 Mechanical Ventilator 40 09/01/18 10:05 58 17 99 Mechanical Ventilator 40 Height (Feet): 5 Height (Inches): 4.00 Weight (Pounds): 186 Objective GEN: NAD, On vent 40% O2 and satting well HEENT: NCAT, MMM, PERRL LUNGS: Course B/L, No W HEART: RRR, normal S1 and normal S2. ABDOMEN: Soft. NT, ND, + BS Laboratory Tests Test 09/02/18 03:40 White Blood Count 12.5 K/UL (4.8-10.8) H Red Blood Count 4.10 M/UL (4.20-5.40) L Hemoglobin 12.8 G/DL (12.0-16.0) Hematocrit 38.8 % (37.0-47.0) Mean Corpuscular Volume 95 FL (80-99) Mean Corpuscular Hemoglobin 31.3 PG (27.0-31.0) H Mean Corpuscular Hemoglobin Concent 33.0 G/DL (32.0-36.0) Red Cell Distribution Width 11.6 % (11.6-14.8) Platelet Count 285 K/UL (150-450) Mean Platelet Volume 6.1 FL (6.5-10.1) L Neutrophils (%) (Auto) 57.7 % (45.0-75.0) Lymphocytes (%) (Auto) 32.7 % (20.0-45.0) Monocytes (%) (Auto) 6.2 % (1.0-10.0) Eosinophils (%) (Auto) 2.0 % (0.0-3.0) Basophils (%) (Auto) 1.4 % (0.0-2.0) Reticulocyte Count 0.9 % (0.0-2.0) Prothrombin Time 11.5 SEC (9.30-11.50) Prothromb Time International Ratio 1.1 (0.9-1.1) Activated Partial Thromboplast Time 28 SEC (23-33) Sodium Level 140 MMOL/L (136-145) Potassium Level 3.9 MMOL/L (3.5-5.1) Chloride Level 102 MMOL/L (98-107) Carbon Dioxide Level 28 MMOL/L (21-32) Anion Gap 10 mmol/L (5-15) Blood Urea Nitrogen 16 mg/dL (7-18) Creatinine 0.4 MG/DL (0.55-1.30) L Estimat Glomerular Filtration Rate > 60 mL/min (>60) Glucose Level 89 MG/DL (74-106) Calcium Level 10.1 MG/DL (8.5-10.1) Iron Level 101 ug/dL (50-175) Total Iron Binding Capacity 199 ug/dL (250-450) L Percent Iron Saturation 51 % (15-50) H Unsaturated Iron Binding 98 ug/dL (112-346) L Ferritin 174 NG/ML (8-388) Total Bilirubin 0.5 MG/DL (0.2-1.0) Aspartate Amino Transf (AST/SGOT) 9 U/L (15-37) L Alanine Aminotransferase (ALT/SGPT) 38 U/L (12-78) Alkaline Phosphatase 105 U/L (46-116) Total Protein 7.4 G/DL (6.4-8.2) Albumin 3.0 G/DL (3.4-5.0) L Globulin 4.4 g/dL Albumin/Globulin Ratio 0.7 (1.0-2.7) L Carcinoembryonic Antigen Pending Vitamin B12 Level 1898 PG/ML (193-986) H Folate 55.4 NG/ML (8.6-58.9) Thyroid Stimulating Hormone (TSH) 1.205 uiU/mL (0.358-3.740) Free Thyroxine 1.15 NG/DL (0.76-1.46) Current Medications Medications (Trade) Dose Ordered Sig/Marzena Route PRN Reason Start Time Stop Time Status Last Admin Dose Admin Acetaminophen (Tylenol) 650 mg Q4H PRN GT FEVER/PAIN 08/26/18 20:20 09/15/18 20:19 09/02/18 09:17 Amikacin Protocol (Amikacin pharmacy to dose) 1 ea DAILY PRN MISC Per rx protocol 08/19/18 12:45 09/18/18 12:44 Amitriptyline HCl (Elavil) 10 mg BEDTIME ORAL 09/01/18 21:00 10/01/18 20:59 09/01/18 20:07 Amlodipine Besylate (Norvasc) 5 mg DAILY GT 08/17/18 09:00 09/16/18 08:59 09/02/18 09:18 Artificial Tears (Akwa-Tears) 2 drop Q4H PRN BOTH EYES Dry Eyes 08/28/18 00:30 09/27/18 00:29 08/31/18 17:51 Colistimethate Sodium (Colistin *inhalation use only*) 150 mg Q12HR@10,22 INH 08/30/18 13:30 09/03/18 09:59 09/02/18 00:10 Gentamicin Sulfate (Garamycin 0.3% Opth Soln) 1 drop TID LEFT EYE 08/23/18 18:00 09/02/18 13:01 09/02/18 09:17 Heparin Sodium (Porcine) (Heparin 5000 units/ml) 5,000 units EVERY 12 HOURS SUBQ 08/16/18 21:00 09/15/18 20:59 09/01/18 09:26 Hydralazine HCl (Apresoline) 10 mg EVERY 6 HOURS GT 08/16/18 18:00 09/15/18 17:59 09/02/18 05:15 Lansoprazole (Prevacid) 30 mg DAILY GT 08/20/18 09:00 09/19/18 08:59 09/02/18 09:17 Mometasone Furoate (Elocon) 1 applic DAILY PRN TOPIC Itching/Pruritis 08/28/18 00:30 09/27/18 00:29 08/28/18 08:05 Ondansetron HCl (Zofran) 4 mg Q6H PRN IVP Nausea & Vomiting 08/16/18 14:00 09/15/18 13:59 Polyethylene Glycol (Miralax) 17 gm DAILYPRN PRN GT Constipation 08/16/18 14:00 09/15/18 13:59 08/16/18 21:09 Tramadol HCl (Ultram) 50 mg Q8H PRN GT For Pain 08/31/18 18:00 09/07/18 17:59 08/31/18 18:33 Justo Banegas MD Sep 02, 2018 09:30
[2018-09-02] MEDS: Heparin 5000 units/ml inj SUBQ SCH ×2 (09:31→20:15)
--- NOTE | 2018-09-02 12:00 | NUR ---
RESPIRATORY NOTE:Pt's Trach was deflated per speech therapist orders. [facility] wanted to see if pt can tolerate passy akilah valve. pt lasted 15 mins with trach deflated and then pt stated she was having difficulty breathing. Placed pt back on vent. pt is now resting comfortably. Will try again tomorrow per [facility].
--- NOTE | 2018-09-02 12:34 | General Progress Note ---
Assessment/Plan Problem List: (1) Anemia ICD Codes: D64.9 - Anemia, unspecified SNOMED: 879813454 (2) Feeding by G-tube ICD Codes: Z93.1 - Gastrostomy status SNOMED: 399805374, 375844584, 717083425 (3) Tracheostomy dependence ICD Codes: Z93.0 - Tracheostomy status SNOMED: 286132755 Assessment/Plan GTF at 66 cc fu labs supportive care Subjective ROS Limited/Unobtainable: No Allergies: Coded Allergies: MILK (Verified Allergy, Unknown, 08/16/18) Objective Last 24 Hour Vital Signs Date Time Temp Pulse Resp B/P (MAP) Pulse Ox O2 Delivery O2 Flow Rate FiO2 09/02/18 11:31 61 16 100 Mechanical Ventilator 40 09/02/18 11:23 59 16 100 Mechanical Ventilator 40 09/02/18 11:22 59 16 40 09/02/18 09:18 59 117/66 09/02/18 08:52 65 16 40 09/02/18 08:00 58 09/02/18 08:00 40 09/02/18 08:00 98.2 59 16 117/66 (83) 99 09/02/18 08:00 Mechanical Ventilator 09/02/18 07:09 62 16 40 09/02/18 05:15 123/65 09/02/18 05:08 59 17 40 09/02/18 04:00 53 09/02/18 04:00 40 09/02/18 04:00 97.4 59 16 123/65 (84) 100 09/02/18 04:00 Mechanical Ventilator 09/02/18 03:26 53 16 40 09/02/18 01:31 52 16 40 09/02/18 00:31 62 16 100 Mechanical Ventilator 40 09/02/18 00:03 53 16 40 09/02/18 00:03 53 16 100 Mechanical Ventilator 40 09/02/18 00:00 Mechanical Ventilator 09/02/18 00:00 40 09/02/18 00:00 101/65 09/02/18 00:00 98.6 53 16 104/61 (75) 100 09/02/18 00:00 54 09/01/18 20:56 56 16 40 09/01/18 20:20 66 17 40 09/01/18 20:00 60 09/01/18 20:00 40 09/01/18 20:00 97.5 66 20 136/73 (94) 100 09/01/18 20:00 Mechanical Ventilator 09/01/18 17:29 62 16 40 09/01/18 17:28 136/87 09/01/18 16:57 60 09/01/18 16:00 Mechanical Ventilator 09/01/18 16:00 40 09/01/18 16:00 97.9 69 18 136/87 (103) 100 09/01/18 15:05 57 16 40 09/01/18 13:09 65 19 40 09/01/18 12:56 121/75 Intake and Output 09/01/18 09/02/18 19:00 07:00 Intake Total 880 ml 805 ml Output Total 1775 ml 700 ml Balance -895 ml 105 ml Intake Free Water 90 ml Tube Feeding 780 ml 715 ml Other 100 ml Output Urine Total 1775 ml 700 ml Laboratory Tests 09/02/18 03:40: White Blood Count 12.5H, Red Blood Count 4.10L, Hemoglobin 12.8, Hematocrit 38.8 , Mean Corpuscular Volume 95, Mean Corpuscular Hemoglobin 31.3H, Mean Corpuscular Hemoglobin Concent 33.0, Red Cell Distribution Width 11.6, Platelet Count 285, Mean Platelet Volume 6.1L, Neutrophils (%) (Auto) 57.7, Lymphocytes ( %) (Auto) 32.7, Monocytes (%) (Auto) 6.2, Eosinophils (%) (Auto) 2.0, Basophils (%) (Auto) 1.4, Reticulocyte Count 0.9, Prothrombin Time 11.5, Prothromb Time International Ratio 1.1, Activated Partial Thromboplast Time 28, Sodium Level 140, Potassium Level 3.9, Chloride Level 102, Carbon Dioxide Level 28, Anion Gap 10, Blood Urea Nitrogen 16, Creatinine 0.4L, Estimat Glomerular Filtration Rate > 60, Glucose Level 89, Calcium Level 10.1, Iron Level 101, Total Iron Binding Capacity 199L, Percent Iron Saturation 51H, Unsaturated Iron Binding 98L , Ferritin 174, Total Bilirubin 0.5, Aspartate Amino Transf (AST/SGOT) 9L, Alanine Aminotransferase (ALT/SGPT) 38, Alkaline Phosphatase 105, Total Protein 7.4, Albumin 3.0L, Globulin 4.4, Albumin/Globulin Ratio 0.7L, Carcinoembryonic Antigen [Pending], Vitamin B12 Level 1898H, Folate 55.4, Thyroid Stimulating Hormone (TSH) 1.205, Free Thyroxine 1.15 Height (Feet): 5 Height (Inches): 4.00 Weight (Pounds): 186 General Appearance: no apparent distress EENT: TMs normal Neck: supple Cardiovascular: normal rate Respiratory/Chest: decreased breath sounds Abdomen: normal bowel sounds, non tender, soft Extremities: non-tender Ramez Bernal MD Sep 02, 2018 12:34
[2018-09-02] MEDS ORDERED: Amikacin 1,000 MG in NS 110 ML IV SCH (13:00)
--- NOTE | 2018-09-02 13:11 | Pulmonolgy Critical Care Note ---
Critical Care - Asmt/Plan Problems: (1) Acute on chronic respiratory failure (2) Nosocomial pneumonia (3) Cardiac arrest (4) Feeding by G-tube (5) Sepsis Respiratory: monitor respiratory rate, adjust FIO2, CXR Cardiac: continue to monitor HR/BP Renal: F/U I&O, keep IV fluid, check electrolytes Infectious Disease: check cultures, continue antibiotics Gastrointestinal: continue feedings/current rate Endocrine: monitor blood sugar, check HgA1C, continue sliding scale insulin Hematologic: transfuse if hgb<8.5 Neurologic: PRN Ativan, PRN Morphine, keep patient comfortable Affect: PRN ativan Prophylaxis: Heparin Notes Reviewed: rehabilitation counselor Discussed with: nurses, consultants, case preparer and linermanager sap - Objective Last 24 Hour Vital Signs Date Time Temp Pulse Resp B/P (MAP) Pulse Ox O2 Delivery O2 Flow Rate FiO2 09/02/18 12:30 62 16 40 09/02/18 11:31 61 16 100 Mechanical Ventilator 40 09/02/18 11:23 59 16 100 Mechanical Ventilator 40 09/02/18 11:22 59 16 40 09/02/18 09:18 59 117/66 09/02/18 08:52 65 16 40 09/02/18 08:00 58 09/02/18 08:00 40 09/02/18 08:00 98.2 59 16 117/66 (83) 99 09/02/18 08:00 Mechanical Ventilator 09/02/18 07:09 62 16 40 09/02/18 05:15 123/65 09/02/18 05:08 59 17 40 09/02/18 04:00 53 09/02/18 04:00 40 09/02/18 04:00 97.4 59 16 123/65 (84) 100 09/02/18 04:00 Mechanical Ventilator 09/02/18 03:26 53 16 40 09/02/18 01:31 52 16 40 09/02/18 00:31 62 16 100 Mechanical Ventilator 40 09/02/18 00:03 53 16 40 09/02/18 00:03 53 16 100 Mechanical Ventilator 40 09/02/18 00:00 Mechanical Ventilator 09/02/18 00:00 40 09/02/18 00:00 101/65 09/02/18 00:00 98.6 53 16 104/61 (75) 100 09/02/18 00:00 54 09/01/18 20:56 56 16 40 09/01/18 20:20 66 17 40 09/01/18 20:00 60 09/01/18 20:00 40 09/01/18 20:00 97.5 66 20 136/73 (94) 100 09/01/18 20:00 Mechanical Ventilator 09/01/18 17:29 62 16 40 09/01/18 17:28 136/87 09/01/18 16:57 60 09/01/18 16:00 Mechanical Ventilator 09/01/18 16:00 40 09/01/18 16:00 97.9 69 18 136/87 (103) 100 09/01/18 15:05 57 16 40 Status: awake Condition: critical HEENT: atraumatic Lungs: rales, rhonchi Heart: HR/BP stable Abdomen: soft, non-tender, active bowel sounds, feeding tube Extremities: no C/C/E, edema Micro: Microbiology Date/Time Source Procedure Growth Status 09/01/18 02:47 Eye Left Gram Stain Pending Resulted 09/01/18 02:47 Eye Left Eye Culture - Preliminary NO GROWTH AFTER 24 HOURS Resulted Accucheck: 104 Critical Care - Subjective ROS Limited/Unobtainable: Yes Condition: critical EKG Rhythm: Sinus Rhythm FI02: 40 Vent Support Breath Rate: 16 Vent Support Mode: AC Vent Tidal Volume: 500 Sputum Amount: Small PEEP: 5.0 PIP: 25 Tube Feeding Amount: 65 I&O: Intake and Output 09/01/18 09/02/18 19:00 07:00 Intake Total 880 ml 805 ml Output Total 1775 ml 700 ml Balance -895 ml 105 ml Intake Free Water 90 ml Tube Feeding 780 ml 715 ml Other 100 ml Output Urine Total 1775 ml 700 ml Curtis Mcgovern MD Sep 02, 2018 13:11
--- NOTE | 2018-09-02 14:21 | NUR ---
*-* INSURANCE *-* UPDATED CLINICALS HAVE BEEN FAXED TO: [facility] @ [phone] [facility] WILL TRACK THIS ADMISSION NO ORACLE ADF DEVELOPER ASSIGNED AT THIS TIME. PLEASE FAX THE REVIEW/CLINICAL P- [phone] f- [phone]
--- NOTE | 2018-09-02 14:50 | NUR ---
BRONC BUSTERMANAGER MOBILE SI:ACUTE ON CHRONIC RESPIRATORY FAILURE . PNE VS: BP 115/75, P 59, T 97.4, RR 16, SpO2 99 on VENT AC 14, TV 500, PEEP 5.0, FiO2 40 WBC 12.5, RBC 4.10, CR 0.4 IS:AMIKACIN 114ml IV COLISTIN 150mg PREVACID 30mg GT NORVASC 5mg GT HEPARIN SUBQ APRESOLINE 10mg SDU STATUS
--- NOTE | 2018-09-02 15:29 | NUR ---
ST NOTE: PASSY-JEFFREY SPEAKING VALVE EVAL RECEIVED PASSY-JEFFREY SPEAKING VALVE EVAL CHART REVIEWED. REFERRED BY DR. ZAMOAR PT IS A 57-YEAR-OLD [place]-SPEAKING FEMALE WHO WAS ADMITTED DUE TO CHEST PAIN AND PNA. PT HAS A CARDIOPULMONARY ARREST A YEAR AGO AND WAS SENT TO [facility]. NOTED THAT PT HAD MASSIVE INTRACRANIAL HEMORRHAGE IN BRAINSTEM, THE CEREBELLUM AND XIANG. PT WAS COMATOSE. PT RECEIVED TRACHEOSTOMY AND PEG PLACEMENT; AND VENTILATOR DEPENDENT. UPON DISCHARGE, PT WAS SENT TO [place] FOR VENT WEANING ON 11/12/17; AND PT WAS DISCHARGED TO [facility]. PT HAS HISTORY OF MALIGNANT HTN, DMII, GERD, EPILEPSY, H/O ANOXIC ENCEPHALOPATHY, APHASIA. PLOF: PT RESIDES AT [facility]. PER PT'S POLST: FULL TREATMENT AND OKAY FOR LONG-TERM ARTIFICIAL NUTRITION, INCLUDING FEEDING TUBES. CURRENT STATUS: PT SEEN AT BEDSIDE IN LATE AM. RT, CHIARA([place]-SPEAKING RT) PRESENTED. PT ALERT, COOPERATIVE, ABLE TO FOLLOW SIMPLE DIRECTIONS WITH CUES. PT IS VENTILATOR-DEPENDENT, WITH PORTEX 7 TRACHEOSTOMY, FIO2:40%, RR:16; PULSE: LOW 60s, OXYGEN LEVEL: 100% COMPLETED ORAL MOTOR EXAMINATION: L-SIDED FACIAL DROOP, ASYMMETRY WAS NOTED. BUT R-SIDED UPPER AND AND LOWER EXTREMITIES WEAKNESS. TONGUE DEVIATED TO L-SIDED, REDUCED LINGUAL MOVEMENT. PT WAS ABLE TO DEMONSTRATE DRY SWALLOW RESPONSE WHEN REQUESTED. IMPRESSION: RT SUCTIONED PT PRIOR CUFF DEFLATION, PT WAS ABLE TO PHONATE AND SPEAK AT SHORT SENTENCE LEVEL, TRAINED PT RE: BREATHING, PT WAS ABLE TO MAINTAIN GOOD OXYGEN LEVEL AT 100% AND RR: 18 AND HEART RATE: 60s. PT WAS ABLE TO TOLERATE CUFF DEFLATION FOR 10 MINS. PT REPORTED FEELING SHORT OF BREATH AFTER 10 MINS WHEN ATTEMPTED THE CPAP. INFLATED THE CUFF. RECOMMENDATIONS: 1. CONTINUE CUFF DEFLATION AND PMV TRIALS TOLERATED BY RT/ST 2. BREATHING/VOICING EXS 3. SPEECH/LANGUAGE/COGNITION EVAL/TX 4. SWALLOW EVAL AND MODIFIED BARIUM SWALLOW STUDY WHEN PT IS READY. D/W RN, ANIRUDH, RT AND THE STAFF.
--- NOTE | 2018-09-02 15:56 | NUR ---
P.T WEEKLY PROGRESS NOTES: PATIENT DEMONSTRATED SLOW PROGRESS IN THERAPY DUE TO POOR MEDICAL CONDITION AND LIMITED THERAPY RESOURCE. PATIENT HOWEVER IS FULLY COOPERATIVE AND HIGHLY MOTIVATED TO GET BETTER. PATIENT CURRENTLY REQUIRE MOD-MAX A FOR TURNING , MAX A X 2P FOR SUPINE TO/FROM SITTING. PATIENT ABLE TO SIT AT THE EOB WITH MAX SUPPORT FOR APPROX 15 MIN. WILL CONTINUE WITH POC WITH PROGRESSION OF ACTIVITIES TOLERATED. RECOMMEND DC TO SNF FOR FURTHER REHAB.
[2018-09-02 16:00] VITALS: BP 120/72
--- NOTE | 2018-09-02 17:30 | Progress Note ---
DATE: 09/01/2018 NOTE: POOR AUDIO SUBJECTIVE: The patient is awake, alert, afebrile, and hemodynamically stable. PHYSICAL EXAMINATION: VITAL SIGNS: Blood pressure , pulse is 66, respirations 17, and temperature 97.5. HEENT: Eyes were normal. ENT, mucous membranes were moist and intact. NECK: Supple with no JVD without lymph nodes. Tracheostomy site is clean. ABDOMEN: Soft and nontender with normal bowel sounds. Gastrostomy site is clean. EXTREMITIES: Warm without cyanosis, clubbing, or edema. LABORATORY AND DIAGNOSTIC DATA: Hemoglobin is 11.9, hematocrit 36.0, MCV of 95, WBC of 11.9, and platelets 277. BUN and creatinine are 26 and 0.5 respectively. Sodium is 140, potassium 3.9, chloride 104, and CO2 is 25. Lactic acid revealed from 08/28/2018 . IMPRESSION: The patient clinically has improved. Decline in WBC clinical improvement. compared to the patient's location . Accu-Chek will be discontinued . Repeat laboratory tests will be done in the a.m. Karissa Fox M.D. DR: JENNIFER JOB#: [id number] CC:
--- NOTE | 2018-09-02 19:04 | NUR ---
NURSE NOTES: Report received from Jessica Hunter RN. Patient seen in bed in semi willis position with Vent on previous setting. Sp02 is 99%. Alert, responsive, able to nod head and shake for no, able to make easy needs known. Denies any pain at this time. Noted with GT, Gt site is intact. Purewick in place and is intact. IV site to right wrist 22g is intact. Bed is in lowest position. Call light is within easy reach while in bed. Will continue to monitor.
--- NOTE | 2018-09-02 19:27 | NUR ---
RESPIRATORY NOTE: Received pt on AC 16, 500VT, 40%, PEEP +5. Pt is trach-dependent w/ a cuffed, Portex 7 tube. Pt alert/awake, follows commands. B/S merlin rhonchi, sxn minimal amounts of thick/thin, frothy clear-white secretions. Vent plugged into red outlet, ambubag & spare trach kit at bedside. Pt resting comfortable, in no apparent distress at this time. Will continue plan of care.
[2018-09-02 20:00] VITALS: BP 136/71
--- NOTE | 2018-09-02 20:44 | General Progress Note ---
Assessment/Plan Assessment/Plan Assessment/Plan # Leukocytosis with likely pna, Opacity in the left lung base which may represent pleural effusion and atelectasis. Pneumonia is not excluded --> has not received steriods --> trend 12-->13-->17-->14-->12-->11-->12 --> smear reviewed, no major abnml noted --> on abx as per id --> per pulm/cc care as well # Anemia of chronic disease due to underlying chronic medical issues, multifactorial --> Anemia workup only if hgb <10 --> No evidence of hemolysis is noted, peripheral smear reviewed --> Hgb goal >7. Transfuse prn. 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 Greatly appreciate consultation! Subjective Constitutional: Denies: no symptoms, chills, diaphoresis, fever, malaise, weakness, other HEENT: Denies: no symptoms, eye pain, blurred vision, tearing, double vision, ear pain, ear discharge, nose pain, nose congestion, throat pain, throat swelling, mouth pain, mouth swelling, other Gastrointestinal/Abdominal: Denies: no symptoms, abdomen distended, abdominal pain, black stools, tarry stools, blood in stool, constipated, diarrhea, difficulty swallowing, nausea, poor appetite, poor fluid intake, rectal bleeding , vomiting, other Allergies: Coded Allergies: MILK (Verified Allergy, Unknown, 08/16/18) Subjective 3.31: no events, on amikacin, no f/c 4/1: on vent, tolreating gtube feedings well, no complaints 4/2: on abx as per id, having headache doesn't respond to tylenol very well 4/3: alert responsive, nodding head, no complaints Objective Last 24 Hour Vital Signs Date Time Temp Pulse Resp B/P (MAP) Pulse Ox O2 Delivery O2 Flow Rate FiO2 09/02/18 19:25 56 16 40 09/02/18 17:45 120/72 09/02/18 17:11 56 16 40 09/02/18 16:00 65 09/02/18 16:00 98.9 56 17 120/72 (88) 100 09/02/18 16:00 40 09/02/18 16:00 Mechanical Ventilator 09/02/18 14:53 61 16 40 09/02/18 13:18 115/75 09/02/18 12:30 62 16 40 09/02/18 12:00 40 09/02/18 12:00 Mechanical Ventilator 09/02/18 11:57 66 09/02/18 11:31 61 16 100 Mechanical Ventilator 40 09/02/18 11:23 59 16 100 Mechanical Ventilator 40 09/02/18 11:22 59 16 40 09/02/18 09:18 59 117/66 09/02/18 08:52 65 16 40 09/02/18 08:00 58 09/02/18 08:00 40 09/02/18 08:00 98.2 59 16 117/66 (83) 99 09/02/18 08:00 Mechanical Ventilator 09/02/18 07:09 62 16 40 09/02/18 05:15 123/65 09/02/18 05:08 59 17 40 09/02/18 04:00 53 09/02/18 04:00 40 09/02/18 04:00 97.4 59 16 123/65 (84) 100 09/02/18 04:00 Mechanical Ventilator 09/02/18 03:26 53 16 40 09/02/18 01:31 52 16 40 09/02/18 00:31 62 16 100 Mechanical Ventilator 40 09/02/18 00:03 53 16 40 09/02/18 00:03 53 16 100 Mechanical Ventilator 40 09/02/18 00:00 Mechanical Ventilator 09/02/18 00:00 40 09/02/18 00:00 101/65 09/02/18 00:00 98.6 53 16 104/61 (75) 100 09/02/18 00:00 54 09/01/18 20:56 56 16 40 Intake and Output 09/01/18 09/02/18 19:00 07:00 Intake Total 880 ml 870 ml Output Total 1775 ml 700 ml Balance -895 ml 170 ml Intake Free Water 90 ml Tube Feeding 780 ml 780 ml Other 100 ml Output Urine Total 1775 ml 700 ml Laboratory Tests 09/02/18 03:40: White Blood Count 12.5H, Red Blood Count 4.10L, Hemoglobin 12.8, Hematocrit 38.8 , Mean Corpuscular Volume 95, Mean Corpuscular Hemoglobin 31.3H, Mean Corpuscular Hemoglobin Concent 33.0, Red Cell Distribution Width 11.6, Platelet Count 285, Mean Platelet Volume 6.1L, Neutrophils (%) (Auto) 57.7, Lymphocytes ( %) (Auto) 32.7, Monocytes (%) (Auto) 6.2, Eosinophils (%) (Auto) 2.0, Basophils (%) (Auto) 1.4, Reticulocyte Count 0.9, Prothrombin Time 11.5, Prothromb Time International Ratio 1.1, Activated Partial Thromboplast Time 28, Sodium Level 140, Potassium Level 3.9, Chloride Level 102, Carbon Dioxide Level 28, Anion Gap 10, Blood Urea Nitrogen 16, Creatinine 0.4L, Estimat Glomerular Filtration Rate > 60, Glucose Level 89, Calcium Level 10.1, Iron Level 101, Total Iron Binding Capacity 199L, Percent Iron Saturation 51H, Unsaturated Iron Binding 98L , Ferritin 174, Total Bilirubin 0.5, Aspartate Amino Transf (AST/SGOT) 9L, Alanine Aminotransferase (ALT/SGPT) 38, Alkaline Phosphatase 105, Total Protein 7.4, Albumin 3.0L, Globulin 4.4, Albumin/Globulin Ratio 0.7L, Carcinoembryonic Antigen [Pending], Vitamin B12 Level 1898H, Folate 55.4, Thyroid Stimulating Hormone (TSH) 1.205, Free Thyroxine 1.15 09/02/18 18:00: Stool Occult Blood [Pending] Height (Feet): 5 Height (Inches): 4.00 Weight (Pounds): 186 Objective PE HEENT: Pupils were round, equal, and reactive to light. Sclerae was white. . ENT, mucous membranes were not dehydrated. NECK: Supple. There was no goiter. No mass. ++ trach LUNGS: Clear with decreased breath sounds in both bases, more on the left than on the right. HEART: There was normal S1 and normal S2. There was no murmur. No arrhythmia. No S3. No S4. No pericardial rub. ABDOMEN: Soft. Nontender without organomegaly. ++ peg There was no guarding. No rebound tenderness. No ascites. EXTREMITIES: No cyanosis, no clubbing, and no edema. Extremities were warm. Asael Raman MD Sep 02, 2018 20:44
--- NOTE | 2018-09-02 21:00 | NUR ---
HAND-OFF: Report given to AUGIE Butler. Patient VS stable at this time with no sign of acute distress. Patient consistently complains about headache. Endorsed that tylenol controls the patient's pain. Addendum: 09/02/18 at 2101 by Jessica Hunter RN Report given at 1903.
[2018-09-03] VITALS: BP 133/67
[2018-09-03 04:00] VITALS: BP 128/74
[2018-09-03] MEDS: HydrALAZINE 10mg Tab GT SCH ×3 (05:08→18:00)
--- NOTE | 2018-09-03 07:03 | NUR ---
RESPIRATORY NOTE: Patient received mechanically ventilated on PB 840 with current ordered vent settings. Patient has trach Portex 7.0 cuffed that is secured with a trach tie and guard. There are bilateral coarse breath sounds noted upon auscultation and scant amount of thick clear secretions were suctioned via inline suction system without incident. Vent alarms are functional and audible. There is an ambu bag available at the bedside and the vent is connected to a red outlet. Patient appears comfortable. Will continue to monitor.
--- NOTE | 2018-09-03 07:16 | NUR ---
HAND-OFF: Report given to AUGIE Miranda.
[2018-09-03 08:00] VITALS: BP 122/78
--- NOTE | 2018-09-03 08:00 | NUR ---
NURSE NOTES: Patient alert and oriented x 2 able to make needs known. Trach to vent protex 7 ac 16 vt 500 fio2 40% peep of 5. lung sounds diminished bilaterally. g tube feeding. vital af 1.2 at 65 cc/hr. purewhick intact. L hand 24 R wrist 22. Labs were within normal limits. Patient denies pain or discomofrt at this time. Will continue plan of care.
[2018-09-03] MEDS: Heparin 5000 units/ml inj SUBQ SCH (09:58)
--- NOTE | 2018-09-03 10:19 | Infectious Diseases Prog Note ---
Assessment/Plan Assessment/Plan PNA -08/31 CXR: Improved but persistent left basilar consolidation and/or atelectasis, over 2 days -08/18 CXR: Interim partial improvement of left basilar infiltrate, over 3 days -CTA chest: No evidence of pulmonary embolism. Bronchiectasis with mild volume loss and consolidation in the left lower lobe, which may suggest atelectasis versus pneumonia. Small layering left pleural effusion. -sp cx MDR ABC (I Ceftazidime; S Amikacin), PsA (arce S); 08/24 sp cx S.marcenses (R ancef otherwise S); 08/28 S. marcescens(R ancef; otherwise S) -influenza sc neg -CXR: Opacity in the left lung base which may represent pleural effusion and atelectasis. Pneumonia is not excluded. Low grade fever x1, SP Leukocytosis, increased, now imrpoving -08/29 u/a wbc tnct; ucx ESBL K. pna (S amikacin, ertapanem; R tigecycline), GNR #2 -08/24 u/a neg -Bcx NTD -u/a neg Lactic acidosis, SP hx of cardiac arrest hx of cerebral hemorrhage c/w aphasia and R hemiplegia chronic trach and peg HLD HTN bed bound SNF resident Plan: - Monitor off abx Will monitor leukocytosis and repeat cultures for new sign of infection. -09/03 SP IV Amikacin and INH colistin #14 for MDR ABC and ESBL K.pna URI -08/31 SP Tigecycline #5 -08/24 SP Zosyn # 8 -08/18 SP IV Vancomycin #2 -08/16 SP Zosyn x1 -f.u Repeat cultuers -f.u cx -Monitor CBC/CMP, temperatures -aspiration precautions -PEG/Trach care -Gi f.u Subjective Allergies: Coded Allergies: MILK (Verified Allergy, Unknown, 08/16/18) Subjective Afebrile Leukocytosis mild but continues Objective Vital Signs Last 24 Hour Vital Signs Date Time Temp Pulse Resp B/P (MAP) Pulse Ox O2 Delivery O2 Flow Rate FiO2 09/03/18 09:56 80 133/70 09/03/18 08:32 79 16 40 09/03/18 08:00 Mechanical Ventilator 09/03/18 08:00 40 09/03/18 06:55 61 17 40 09/03/18 05:20 59 16 40 09/03/18 05:08 139/70 09/03/18 04:00 97.4 59 16 128/74 (92) 100 09/03/18 04:00 40 09/03/18 04:00 Mechanical Ventilator 09/03/18 03:28 59 09/03/18 03:25 55 16 40 09/03/18 01:35 55 16 40 09/03/18 00:00 98.0 57 16 133/67 (89) 100 09/03/18 00:00 Mechanical Ventilator 09/02/18 23:27 130/74 09/02/18 23:25 79 09/02/18 22:55 60 16 40 09/02/18 21:55 58 16 100 Mechanical Ventilator 40 09/02/18 21:42 60 16 99 Mechanical Ventilator 40 09/02/18 21:40 60 16 40 09/02/18 20:00 40 09/02/18 20:00 98.3 60 18 136/71 (92) 100 09/02/18 20:00 Mechanical Ventilator 09/02/18 19:25 56 16 40 09/02/18 19:01 64 09/02/18 17:45 120/72 09/02/18 17:11 56 16 40 09/02/18 16:00 65 09/02/18 16:00 98.9 56 17 120/72 (88) 100 09/02/18 16:00 40 09/02/18 16:00 Mechanical Ventilator 09/02/18 14:53 61 16 40 09/02/18 13:18 115/75 09/02/18 12:30 62 16 40 09/02/18 12:00 40 09/02/18 12:00 Mechanical Ventilator 09/02/18 11:57 66 09/02/18 11:31 61 16 100 Mechanical Ventilator 40 09/02/18 11:23 59 16 100 Mechanical Ventilator 40 09/02/18 11:22 59 16 40 Height (Feet): 5 Height (Inches): 4.00 Weight (Pounds): 186 Objective GEN: On vent 40% O2 and satting well HEENT: NCAT, MMM, PERRL LUNGS: Course B/L, No W HEART: RRR, normal S1 and normal S2. ABDOMEN: Soft. NT, ND, + BS Microbiology Date/Time Source Procedure Growth Status 09/01/18 02:47 Eye Left Gram Stain - Final Resulted 09/01/18 02:47 Eye Left Eye Culture - Preliminary NO GROWTH AFTER 24 HOURS Resulted Laboratory Tests Test 09/02/18 18:00 Stool Occult Blood Negative (NEGATIVE) Current Medications Medications (Trade) Dose Ordered Sig/Marzena Route PRN Reason Start Time Stop Time Status Last Admin Dose Admin Acetaminophen (Tylenol) 650 mg Q4H PRN GT FEVER/PAIN 08/26/18 20:20 09/15/18 20:19 09/02/18 17:46 Amitriptyline HCl (Elavil) 10 mg BEDTIME ORAL 09/01/18 21:00 10/01/18 20:59 09/02/18 20:14 Amlodipine Besylate (Norvasc) 5 mg DAILY GT 08/17/18 09:00 09/16/18 08:59 09/03/18 09:56 Artificial Tears (Akwa-Tears) 2 drop Q4H PRN BOTH EYES Dry Eyes 08/28/18 00:30 09/27/18 00:29 08/31/18 17:51 Heparin Sodium (Porcine) (Heparin 5000 units/ml) 5,000 units EVERY 12 HOURS SUBQ 08/16/18 21:00 09/15/18 20:59 09/03/18 09:58 Hydralazine HCl (Apresoline) 10 mg EVERY 6 HOURS GT 08/16/18 18:00 09/15/18 17:59 09/03/18 05:08 Lansoprazole (Prevacid) 30 mg DAILY GT 08/20/18 09:00 09/19/18 08:59 09/03/18 09:56 Mometasone Furoate (Elocon) 1 applic DAILY PRN TOPIC Itching/Pruritis 08/28/18 00:30 09/27/18 00:29 08/28/18 08:05 Ondansetron HCl (Zofran) 4 mg Q6H PRN IVP Nausea & Vomiting 08/16/18 14:00 09/15/18 13:59 Polyethylene Glycol (Miralax) 17 gm DAILYPRN PRN GT Constipation 08/16/18 14:00 09/15/18 13:59 08/16/18 21:09 Tramadol HCl (Ultram) 50 mg Q8H PRN GT For Pain 08/31/18 18:00 09/07/18 17:59 08/31/18 18:33 Justo Banegas MD Sep 03, 2018 10:19
--- NOTE | 2018-09-03 10:38 | Pulmonolgy Critical Care Note ---
Critical Care - Asmt/Plan Problems: (1) Acute on chronic respiratory failure (2) Nosocomial pneumonia (3) Cardiac arrest (4) Feeding by G-tube (5) Sepsis Respiratory: monitor respiratory rate, adjust FIO2, CXR Cardiac: continue to monitor HR/BP Renal: F/U I&O, keep IV fluid Infectious Disease: continue antibiotics Gastrointestinal: continue feedings/current rate Endocrine: monitor blood sugar, check TSH, check HgA1C Hematologic: transfuse if hgb<8.5 Neurologic: PRN Morphine, keep patient comfortable Affect: PRN ativan Prophylaxis: Protonix Notes Reviewed: brake reliner, cardio, renal Discussed with: nurses, consultants, case management assistantmanager adobe - Objective Last 24 Hour Vital Signs Date Time Temp Pulse Resp B/P (MAP) Pulse Ox O2 Delivery O2 Flow Rate FiO2 09/03/18 09:56 80 133/70 09/03/18 08:32 79 16 40 09/03/18 08:00 97.9 59 16 122/78 (93) 100 09/03/18 08:00 Mechanical Ventilator 09/03/18 08:00 40 09/03/18 06:55 61 17 40 09/03/18 05:20 59 16 40 09/03/18 05:08 139/70 09/03/18 04:00 97.4 59 16 128/74 (92) 100 09/03/18 04:00 40 09/03/18 04:00 Mechanical Ventilator 09/03/18 03:28 59 09/03/18 03:25 55 16 40 09/03/18 01:35 55 16 40 09/03/18 00:00 98.0 57 16 133/67 (89) 100 09/03/18 00:00 Mechanical Ventilator 09/02/18 23:27 130/74 09/02/18 23:25 79 09/02/18 22:55 60 16 40 09/02/18 21:55 58 16 100 Mechanical Ventilator 40 09/02/18 21:42 60 16 99 Mechanical Ventilator 40 09/02/18 21:40 60 16 40 09/02/18 20:00 40 09/02/18 20:00 98.3 60 18 136/71 (92) 100 09/02/18 20:00 Mechanical Ventilator 09/02/18 19:25 56 16 40 09/02/18 19:01 64 09/02/18 17:45 120/72 4/3/19 17:11 56 16 40 09/02/18 16:00 65 09/02/18 16:00 98.9 56 17 120/72 (88) 100 09/02/18 16:00 40 09/02/18 16:00 Mechanical Ventilator 09/02/18 14:53 61 16 40 09/02/18 13:18 115/75 09/02/18 12:30 62 16 40 09/02/18 12:00 40 09/02/18 12:00 Mechanical Ventilator 09/02/18 11:57 66 09/02/18 11:31 61 16 100 Mechanical Ventilator 40 09/02/18 11:23 59 16 100 Mechanical Ventilator 40 09/02/18 11:22 59 16 40 Status: awake Condition: critical Neck: full ROM Lungs: clear Heart: HR/BP stable Abdomen: soft, active bowel sounds Extremities: no C/C/E, edema Micro: Microbiology Date/Time Source Procedure Growth Status 09/01/18 02:47 Eye Left Gram Stain - Final Resulted 09/01/18 02:47 Eye Left Eye Culture - Preliminary NO GROWTH AFTER 24 HOURS Resulted Accucheck: 104 Critical Care - Subjective ROS Limited/Unobtainable: No Condition: critical EKG Rhythm: Sinus Rhythm FI02: 40 Vent Support Breath Rate: 16 Vent Support Mode: AC Vent Tidal Volume: 500 Sputum Amount: Scant PEEP: 5.0 PIP: 31 Tube Feeding Amount: 65 I&O: Intake and Output 09/02/18 09/03/18 19:00 07:00 Intake Total 664 ml 965 ml Output Total 500 ml Balance 664 ml 465 ml Intake Free Water 30 ml 250 ml IV Total 114 ml Tube Feeding 520 ml 715 ml Output Urine Total 500 ml # Bowel Movements 2 2 Labs: Laboratory Tests Test 09/02/18 18:00 Stool Occult Blood Negative (NEGATIVE) Curtis Mcgovern MD Sep 03, 2018 10:38
--- NOTE | 2018-09-03 10:49 | NUR ---
*-* INSURANCE *-* UPDATED CLINICALS HAVE BEEN FAXED TO: [facility] @ [phone] [facility] WILL TRACK THIS ADMISSION NO EXTENSION WORK DIRECTOR ASSIGNED AT THIS TIME. PLEASE FAX THE REVIEW/CLINICAL P- [phone] f- [phone]
[2018-09-03 12:00] VITALS: BP 118/71
--- NOTE | 2018-09-03 12:00 | NUR ---
NURSE NOTES: Patient turned and repositioned. VSS. No distress noted. Will continue plan of care.
--- NOTE | 2018-09-03 14:04 | NUR ---
RUG RECEIVING CLERKCERTIFIED INCOME TAX PREPARER SI:ACUTE ON CHRONIC RESPIRATORY FAILURE . PNA VS: BP 122/78, P 59, T 97.9, RR 16, SpO2 100 on VENT AC 16, TV 500, PEEP 5.0, FiO2 40 IS:PREVACID 30mg NORVASC 5mg HEPARIN SUBQ APRESOLINE 10mg ZOFRAN 4mg SDU STATUS
--- NOTE | 2018-09-03 14:40 | General Progress Note ---
Assessment/Plan Problem List: (1) Anemia ICD Codes: D64.9 - Anemia, unspecified SNOMED: 986891372 (2) Feeding by G-tube ICD Codes: Z93.1 - Gastrostomy status SNOMED: 811576233, 780432609, 111092950 (3) Tracheostomy dependence ICD Codes: Z93.0 - Tracheostomy status SNOMED: 004205896 Assessment/Plan GTF at 65 cc fu labs supportive care Subjective ROS Limited/Unobtainable: No Allergies: Coded Allergies: MILK (Verified Allergy, Unknown, 08/16/18) Objective Last 24 Hour Vital Signs Date Time Temp Pulse Resp B/P (MAP) Pulse Ox O2 Delivery O2 Flow Rate FiO2 09/03/18 12:42 84 17 40 09/03/18 12:00 Mechanical Ventilator 09/03/18 12:00 97.7 77 17 118/71 (87) 100 09/03/18 12:00 40 09/03/18 12:00 118/70 09/03/18 11:42 81 09/03/18 10:32 72 16 40 09/03/18 09:56 80 133/70 09/03/18 08:32 79 16 40 09/03/18 08:00 97.9 59 16 122/78 (93) 100 09/03/18 08:00 Mechanical Ventilator 09/03/18 08:00 40 09/03/18 08:00 64 09/03/18 06:55 61 17 40 09/03/18 05:20 59 16 40 09/03/18 05:08 139/70 09/03/18 04:00 97.4 59 16 128/74 (92) 100 09/03/18 04:00 40 09/03/18 04:00 Mechanical Ventilator 09/03/18 03:28 59 09/03/18 03:25 55 16 40 09/03/18 01:35 55 16 40 09/03/18 00:00 98.0 57 16 133/67 (89) 100 09/03/18 00:00 Mechanical Ventilator 09/02/18 23:27 130/74 09/02/18 23:25 79 09/02/18 22:55 60 16 40 09/02/18 21:55 58 16 100 Mechanical Ventilator 40 09/02/18 21:42 60 16 99 Mechanical Ventilator 40 09/02/18 21:40 60 16 40 09/02/18 20:00 40 09/02/18 20:00 98.3 60 18 136/71 (92) 100 09/02/18 20:00 Mechanical Ventilator 09/02/18 19:25 56 16 40 09/02/18 19:01 64 09/02/18 17:45 120/72 09/02/18 17:11 56 16 40 09/02/18 16:00 65 09/02/18 16:00 98.9 56 17 120/72 (88) 100 09/02/18 16:00 40 09/02/18 16:00 Mechanical Ventilator 09/02/18 14:53 61 16 40 Intake and Output 09/02/18 09/03/18 19:00 07:00 Intake Total 664 ml 965 ml Output Total 500 ml Balance 664 ml 465 ml Intake Free Water 30 ml 250 ml IV Total 114 ml Tube Feeding 520 ml 715 ml Output Urine Total 500 ml # Bowel Movements 2 2 Laboratory Tests 09/02/18 18:00: Stool Occult Blood Negative Height (Feet): 5 Height (Inches): 4.00 Weight (Pounds): 186 General Appearance: no apparent distress EENT: normal ENT inspection Neck: supple Cardiovascular: normal rate Respiratory/Chest: decreased breath sounds Abdomen: normal bowel sounds, non tender, soft Extremities: non-tender Ramez Bernal MD Sep 03, 2018 14:40
--- NOTE | 2018-09-03 15:01 | NUR ---
CERTIFIED ACTIVITIES DIRECTOR NOTES SPOKE WITH PT'S SON MARTHA, PER MARTHA HE WANTS PT TO GO HOME. EXPLAINED TO SON FAMILY NEEDS TO BE BROUGHT IN FOR CARE GIVERS TRAINING. STATED HE LIVES IN [place], HOWEVER PT WILL BE RESIDING @ [address] [place] [address]. I INFORMED HIM THAT PT WILL REQUIRE 24 HOUR CARE GIVING TO BE PROVIDED BY THE FAMILY. MARTHA STATED HIS TWO SISTERS WILL HELP. INFORMED MARTHA THE TRANSITION HOME WILL TAKE SOME TIME TO GET ALL NEEDS IN PLACE.INFORMED MARTHA THAT PT WILL DC TO [place] TODAY AND FURTHER DCP WILL BE DONE BY [facility] HOME [facility] FROM [facility] MADE AWARE OF SON'S REQUEST. PROVIDED MARTHA WITH CONTACT INFORMATION FOR [facility] TO FOLLOW UP.
--- NOTE | 2018-09-03 15:40 | NUR ---
DISCHARGE PLANNED PT DC TO [facility] FOR INCURABLES 18A SKILLED T- FOR NURSE TO NURSE REPORT BLS WITH RT PICK BETWEEN [phone]
--- NOTE | 2018-09-03 15:49 | NUR ---
ST NOTE: CUFF DEFLATION TRIAL/SPEECH/LANGUAGE/COGNITION STATUS: PT SEEN AT BEDSIDE IN PM. ALERT, COOPERATIVE, ABLE TO FOLLOW SIMPLE DIRECTIONS. ADJUST PT AT UPRIGHT POSITION. ERITREAN-SPEAKING RT, JON, IS AT BEDSIDE. PT ON THE VENTILATOR, FIO2: 40%, RR: 16-17 AND HEART RATE: 68-71. CUFF DEFLATED, AND TRACHEAL SUCTION COMPLETED. PT WAS ABLE TO EXPRESS BASIC WANTS AND NEEDS VERBALLY. VOICE IS CLEAR. PT SAID THAT SHE WANTS TO GO HOME. HOWEVER, EXPRESSIVE LANGUAGE DEFICITS WAS NOTED DURING THE CONSERVATION(WHEN RT TRANSLATED). PT TOLERATED CUFF DEFLATION FOR 30 MINS WITHOUT DISTRESS, MAINTAIN OXYGEN LEVEL AT 100%; HEART RATE: 67-91. TRAINED AND EDUCATED PT RE: BREATHING EXS. PER PT, UNABLE TO SEE ON THE L-SIDED(EYE). ATTEMPTED PASSY-JEFFREY SPEAKING VALVE. PT REFUSED DUE TO PT FELT TIRED. PT TOLERATED CUFF DEFLATION TRIAL FOR 30 MINS WITHOUT DISTRESS. DISCUSSED WITH RN, ADRIENNE. PER RN, PT WILL BE D/C BACK TO [facility] TODAY. REFER PT TO TECHNICAL PROJECT LEAD AT DISCHARGE FACILITY TO FOLLOW UP RE:PMV TRIALS AND POSSIBLE SWALLOW EVAL AND MODIFIED BARIUM SWALLOW STUDY. D/W THE STAFF.
[2018-09-03 16:00] VITALS: BP 137/78
--- NOTE | 2018-09-03 16:02 | General Progress Note ---
Assessment/Plan Assessment/Plan Assessment/Plan # Leukocytosis with likely pna, Opacity in the left lung base which may represent pleural effusion and atelectasis. Pneumonia is not excluded --> has not received steriods --> trend 12-->13-->17-->14-->12-->11-->12 --> smear reviewed, no major abnml noted --> on abx as per id --> per pulm/cc care as well # Anemia of chronic disease due to underlying chronic medical issues, multifactorial --> Anemia workup only if hgb <10 --> No evidence of hemolysis is noted, peripheral smear reviewed --> Hgb goal >7. Transfuse prn. 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 Greatly appreciate consultation! Subjective Constitutional: Denies: no symptoms, chills, diaphoresis, fever, malaise, weakness, other HEENT: Denies: no symptoms, eye pain, blurred vision, tearing, double vision, ear pain, ear discharge, nose pain, nose congestion, throat pain, throat swelling, mouth pain, mouth swelling, other Cardiovascular: Denies: no symptoms, chest pain, edema, irregular heart rate, lightheadedness, palpitations, syncope, other Respiratory: Denies: no symptoms, cough, orthopnea, shortness of breath, SOB with excertion, SOB at rest, sputum, stridor, wheezing, other Gastrointestinal/Abdominal: Denies: no symptoms, abdomen distended, abdominal pain, black stools, tarry stools, blood in stool, constipated, diarrhea, difficulty swallowing, nausea, poor appetite, poor fluid intake, rectal bleeding , vomiting, other Genitourinary: Denies: no symptoms, burning, discharge, frequency, flank pain, hematuria, incontinence, pain, urgency, other Neurologic/Psychiatric: Denies: no symptoms, anxiety, depressed, emotional problems, headache, numbness, paresthesia, pre-existing deficit, seizure, tingling, tremors, weakness, other Endocrine: Denies: no symptoms, excessive sweating, flushing, intolerance to cold, intolerance to heat, increased hunger, increased thirst, increased urine, unexplained weight gain, unexplained weight loss, other Allergies: Coded Allergies: MILK (Verified Allergy, Unknown, 08/16/18) Subjective 3.31: no events, on amikacin, no f/c 4/: on vent, tolreating gtube feedings well, no complaints 4/: on abx as per id, having headache doesn't respond to tylenol very well 09/02: alert responsive, nodding head, no complaints 09/03: ftube feeds tolerating well, no issues otherwise reported Objective Last 24 Hour Vital Signs Date Time Temp Pulse Resp B/P (MAP) Pulse Ox O2 Delivery O2 Flow Rate FiO2 09/03/18 15:13 76 16 40 09/03/18 12:42 84 17 40 09/03/18 12:00 Mechanical Ventilator 09/03/18 12:00 97.7 77 17 118/71 (87) 100 09/03/18 12:00 40 09/03/18 12:00 118/70 09/03/18 11:42 81 09/03/18 10:32 72 16 40 09/03/18 09:56 80 133/70 09/03/18 08:32 79 16 40 09/03/18 08:00 97.9 59 16 122/78 (93) 100 09/03/18 08:00 Mechanical Ventilator 09/03/18 08:00 40 09/03/18 08:00 64 09/03/18 06:55 61 17 40 09/03/18 05:20 59 16 40 09/03/18 05:08 139/70 09/03/18 04:00 97.4 59 16 128/74 (92) 100 09/03/18 04:00 40 09/03/18 04:00 Mechanical Ventilator 09/03/18 03:28 59 09/03/18 03:25 55 16 40 09/03/18 01:35 55 16 40 09/03/18 00:00 98.0 57 16 133/67 (89) 100 09/03/18 00:00 Mechanical Ventilator 4/3/19 23:27 130/74 09/02/18 23:25 79 09/02/18 22:55 60 16 40 09/02/18 21:55 58 16 100 Mechanical Ventilator 40 09/02/18 21:42 60 16 99 Mechanical Ventilator 40 09/02/18 21:40 60 16 40 09/02/18 20:00 40 09/02/18 20:00 98.3 60 18 136/71 (92) 100 09/02/18 20:00 Mechanical Ventilator 09/02/18 19:25 56 16 40 09/02/18 19:01 64 09/02/18 17:45 120/72 09/02/18 17:11 56 16 40 Intake and Output 09/02/18 09/03/18 19:00 07:00 Intake Total 664 ml 965 ml Output Total 500 ml Balance 664 ml 465 ml Intake Free Water 30 ml 250 ml IV Total 114 ml Tube Feeding 520 ml 715 ml Output Urine Total 500 ml # Bowel Movements 2 2 Laboratory Tests 09/02/18 18:00: Stool Occult Blood Negative Height (Feet): 5 Height (Inches): 4.00 Weight (Pounds): 186 Objective PE HEENT: Pupils were round, equal, and reactive to light. Sclerae was white. . ENT, mucous membranes were not dehydrated. NECK: Supple. There was no goiter. No mass. ++ trach LUNGS: Clear with decreased breath sounds in both bases, more on the left than on the right. HEART: There was normal S1 and normal S2. There was no murmur. No arrhythmia. No S3. No S4. No pericardial rub. ABDOMEN: Soft. Nontender without organomegaly. ++ peg There was no guarding. No rebound tenderness. No ascites. EXTREMITIES: No cyanosis, no clubbing, and no edema. Extremities were warm. Asael Raman MD Sep 03, 2018 16:02
--- NOTE | 2018-09-03 17:15 | Progress Note ---
DATE: 09/02/2018 SUBJECTIVE: The patient is afebrile and hemodynamically stable. PHYSICAL EXAMINATION: VITAL SIGNS: Blood pressure 136/71, her pulse of 60, respirations of 18, temperature 98.3. HEENT: Eyes were normal. ENT, mucous membranes were moist and intact. NECK: Supple with no JVD without lymph nodes. Tracheostomy site is clean. LUNGS: Clear without rhonchi, rales, or wheezing. Secretions are small, thin, and martinez. HEART: Normal sounds with regular beats. There is no S3, S4, or pericardial rub. ABDOMEN: Soft and nontender with normal bowel sounds. Gastrostomy site is clean. EXTREMITIES: Warm without cyanosis, [id number], or edema. LABORATORY AND DIAGNOSTIC DATA: Hemoglobin is 12.8, hematocrit 38.8 with MCV of 95, WBC of 12.5, and platelets of 285. Her BUN and creatinine are 16 and 0.4 respectively. Sodium is 140, potassium 3.9, chloride 102, CO2 is 98. Calcium is 101. Iron is 101. Total iron-binding capacity is 199. Albumin is 3.0. Total protein is 7.4. Exudate culture showed no growth after 24 hours. Urine from 3 days ago grew out . The patient currently on amikacin 1 mg IV piggyback daily, gentamicin ophthalmic drops the patient is on Colistin 50 mg IV piggyback q.12 hours. Repeat laboratory tests will be done in the a.m. Karissa Fox M.D. DR: RAIZA JOB#: [id number] CC:
--- NOTE | 2018-09-03 18:03 | NUR ---
HAND-OFF: Report given to EFFIE GHOSH at [facility]. VSS. Medical transportation with [facility] transporting patient to facility.
--- NOTE | 2018-09-04 13:51 | Discharge Summary ---
Discharge Summary Discharge Summary _ DATE OF ADMISSION: 08/16/2018 DATE OF DISCHARGE: 09/03/2018 DISCHARGED BY: Dr. Karissa Fox CONSULTANTS: Dr. Curtis Webb BRIEF HOSPITAL COURSE: Patient is a 57-year-old female, who is a resident of an [facility] care facility subacute unit. The patient has been in stable condition over the last several months. She is noted to have several chronic medical syndrome and was stable on her current medications. On the day of admission, she complained of chest pain, shortness of breath and tachypnea. She was transferred by paramedics to [facility] ER. She had a history of cerebral hemorrhage and patient became completely aphasic with right hemiplegia. She developed respiratory failure and had to be intubated and was placed on mechanical ventilation. She was unable to be weaned. She underwent tracheostomy and gastrostomy and was transferred to [place] subacute unit. On evaluation at ED, blood work showed WBC of 13, hemoglobin 14, hematocrit 42. Potassium was 5.2 urinalysis negative. Chest x-ray showed opacity in the left lung base. CTA chest showed no evidence of pulmonary embolism and there was bronchiectasis and consolidation in the left lower lobe. She was started on IV vancomycin and Zosyn. She was then admitted to [facility] for pneumonia. She was continued on vent support. She was continued empirically on IV vancomycin and Zosyn. Repeat chest x-ray showed interim partial improvement of left basal infiltrate. Culture showed MDR Acinetobacter and gram-negative rods. Influenza screen was negative. Vancomycin was discontinued. She was continued on Zosyn and was given IV amikacin and inhaled colistin. She had fever and leukocytosis increased. Blood culture did not isolate any growth. Zosyn was discontinued. She was given tigecycline for double coverage for MDR Acinetobacter. She had persistent leukocytosis. Peripheral blood smear did not show any abnormalities per trust advisor. Leukocytosis improved. She was observed off antibiotics. She was eventually discharged back to alf. FINAL DIAGNOSES: Persistent leukocytosis, likely due to pneumonia Acute on chronic respiratory failure with trach dependence Nosocomial pneumonia Anemia of chronic disease Hyperlipidemia Hypertension Feeding via G-tube Bedbound/ functional quadriplegia SNF resident DISPOSITION: DC to [facility]. I have been assigned to complete a discharge summary on this account, I was not involved with the patient's management. Becky Marrero NP Sep 04, 2018 13:51
== END 2018-09-03 18:35 | DRG 130 ==
LOC: EDBD 11:04 → EMR 11:49 → EDBEDREQ 12:20 → EDBEDREQSVC 12:20 → EDBEDREQ 12:23 → 2W 12:36
PROC: 5A1955Z Respiratory Ventilation, Greater than 96 Consecutive Hours (ICD-10-PCS; principal; 2018-08-16)
DX: J18.9 Pneumonia, unspecified organism (principal); J90 Pleural effusion, not elsewhere classified; J96.20 Acute and chronic respiratory failure, unspecified whether with hypoxia or hypercapnia; E87.2 Acidosis; I69.951 Hemiplegia and hemiparesis following unspecified cerebrovascular disease affecting right dominant side; Z99.11 Dependence on respirator [ventilator] status; Y95 Nosocomial condition; I69.920 Aphasia following unspecified cerebrovascular disease; Z93.0 Tracheostomy status; Z93.1 Gastrostomy status; Z74.01 Bed confinement status; Z86.74 Personal history of sudden cardiac arrest; I10 Essential (primary) hypertension; D64.9 Anemia, unspecified; E78.5 Hyperlipidemia, unspecified
CPT/HCPCS: 36415; 36600; 71045; 71275; 74176; 80048; 80053; 80069; 80150; 80202; 81003; 82150; 82270; 82378; 82550; 82553; 82607; 82728; 82746; 82803; 82962; 83036; 83540; 83550; 83605; 83690; 83735; 83880; 84100; 84439; 84443; 84484; 85025; 85044; 85610; 85651; 85730; 86140; 86710; 87040; 87070; 87081; 87086; 87181; 87205; 93005; 93970; 94002; 94003; 94640; 94664; 96361; 96365; 96368; 96375; 99291; J1815; J7620

== ENCOUNTER 2020-03-06 00:24 | Inpatient (IN) | payer OTHER ==
[~2020-03-06] VITALS: Ht 160 cm; Wt 82.0 kg
[2020-03-06] VITALS (7 sets, daily range): BP systolic 128–160; BP diastolic 63–96
[~2020-03-06 00:24] MED LIST changes: +ACIDOPHILUS-PE1 EAC1 GT; +ALBUTEROL2.5 MG/3 M INH; +ARTIFICIAL TEAR15 ML BOTH EYES; +ATORVASTATIN CA20 MG GT; +COLACE100 MG GT; +FAMOTIDINE20 MG GT; +FLEET ENEMA133 ML RECTAL; +HIBICLENS118 ML ORAL; +HYDRALAZINE HCL10 MG GT; +IBUPROFEN600 MG GT; +KEPPRA LIQ100 MG/1 M GT; +LACTULOSE20 GM/301 GT; +MULTIVITAMINS1 EAC8 GT; +NORVASC5 MG GT; +PRO-STAT LIQUID30 ML GT; +PROMETHAZI6.25 MG/1 GT; +UTI-STAT L3875 MG/31 GT; +VITAMIN D250000 UNI1 GT
--- NOTE | 2020-03-06 00:30 | NUR ---
ED Nurse Note: Patient brought in by ambulance from [facility] with c/o COVID positive on 03/02/2020. Per nurse from SNF, pt is asymptomatic and wanted further evaluation from Dr. Fox. Patient is on trache/vent. Patient not in distress. Patient is awake and alert but nonverbal and is able to gesture needs and wants. Patient denies SOB/, chestpain, fever and chills, diarrhea, N&V. Patient placed on monitor, iso bed.
--- NOTE | 2020-03-06 00:31 | NUR ---
ED Nurse Note: ERMD at bedside
--- NOTE | 2020-03-06 00:40 | NUR ---
RESPIRATORY NOTE: Pt BIBA in ED. Pt placed on ventilator w/ settings from previous facility: VOLUME SIMV 10, 500VT, PS 10, PEEP +5, 40%. Pt is trach-dependent w/ a cuffed, Portex 7 tube. Pt is alert/awake. B/S merlin. rhonchi, sxn small to moderate amounts of thick, fernando-pink secretions w/ occasional blood. Vent plugged into red outlet, alarms on & audible. Ambubag at bedside. Pt tolerating current settings, in no apparent distress at this time. Will continue to monitor pt.
[2020-03-06] MEDS ORDERED: NORVASC5 MG ORAL (00:43)
[2020-03-06] MEDS ORDERED: TRAMADOL HCL50 MG ORAL (00:44)
[2020-03-06] MEDS ORDERED: XIFAXAN550 MG ORAL (00:44)
--- NOTE | 2020-03-06 00:45 | NUR ---
ED Nurse Note: Blood, swabs, rapid covid and urine sent
[2020-03-06 01:12] LABS: BASOPHILS % (AUTO) 1.3 % (0.0-2.0); EOSINOPHILS % (AUTO) 1.6 % (0.0-3.0); HEMATOCRIT 40.2 % (37.0-47.0); HEMOGLOBIN 13.4 G/DL (12.0-16.0); LYMPHOCYTES % (AUTO) 26.7 % (20.0-45.0); MEAN CORPUSCULAR VOLUME 92 FL (80-99); MONOCYTES % (AUTO) 6.5 % (1.0-10.0); NEUTROPHILS % (AUTO) 63.8 % (45.0-75.0); PLATELET COUNT 367 K/UL (150-450); RED BLOOD COUNT 4.38 M/UL (4.20-5.40); RED CELL DISTRIBUTION WIDTH 12.8 % (11.6-14.8); WHITE BLOOD COUNT 12.1 K/UL (4.8-10.8)
[2020-03-06 01:19] LABS: BILIRUBIN, URINE NEGATIVE (NEGATIVE); COLOR,URINE YELLOW; GLUCOSE, URINE (UA) NEGATIVE (NEGATIVE); KETONES,URINE NEGATIVE (NEGATIVE); NITRITE,URINE POSITIVE (NEGATIVE); PH,URINE 6 (4.5-8.0); PROTEIN,URINE 3+ (NEGATIVE); UROBILINOGEN,URINE NORMAL MG/DL (0.0-1.0)
[2020-03-06 01:24] LABS: ANION GAP 2 mmol/L (5-15); BLOOD UREA NITROGEN 16 mg/dL (7-18); CALCIUM 9.2 MG/DL (8.5-10.1); CARBON DIOXIDE 37 MMOL/L (21-32); CHLORIDE 103 MMOL/L (98-107); CREATININE 0.5 MG/DL (0.55-1.30); POTASSIUM 4.2 MMOL/L (3.5-5.1); SODIUM 141 MMOL/L (136-145)
[2020-03-06 01:25] LABS: APPEARANCE,URINE SLIGHTLY CLOUDY; LEUKOCYTE ESTERASE ,URINE 3+ (NEGATIVE)
[2020-03-06 01:39] LABS: ALANINE AMINOTRANSFERASE 35 U/L (12-78); ALBUMIN 3.3 G/DL (3.4-5.0); ALBUMIN/GLOBULIN RATIO 0.8 (1.0-2.7); ALKALINE PHOSPHATASE 92 U/L (46-116); ASPARTATE AMINO TRANSFERASE 13 U/L (15-37); BILIRUBIN,TOTAL 0.2 MG/DL (0.2-1.0); CKMB < 0.5 NG/ML (0.0-3.6); CREATINE KINASE 16 U/L (26-308); FERRITIN 87 NG/ML (8-388); LACTATE DEHYDROGENASE 157 U/L (81-234)
[2020-03-06 01:40] LABS: INR 0.9 (0.9-1.1)
[2020-03-06] MEDS ORDERED: Piperacillin/Tazobactam 3.375 GM in NS 110 ML IVPB ONE (02:00)
--- NOTE | 2020-03-06 02:24 | Diagnostic Imaging Report ---
EXAM: XR Chest, 1 View CLINICAL HISTORY: SOB TECHNIQUE: Frontal view of the chest. COMPARISON: No relevant prior studies available. FINDINGS/IMPRESSION: Midline tracheostomy. EKG leads overlie the patient. Retrocardiac opacity may represent the left hemidiaphragm. Consider correlation with lateral view. No definite pleural effusion or pneumothorax. The heart size is enlarged. Calcified aorta. Calcified loose body measuring 1.9 x 2.3 cm, likely in the left subscapularis recess.
--- NOTE | 2020-03-06 02:33 | Emergency Room Report ---
History of Present Illness General Chief Complaint: General Complaint Source: Medical Record Present Illness HPI 59-year-old female presents the ED for evaluation. Brought in by EMS from halfway facility. Patient has trach/vent. Patient was diagnosed with COVID on 03/02. Patient was sent in for further evaluation. No signs of distress on arrival. Nonverbal but is able to gesture and states she is not in discomfort. No reported fevers or chills. No shortness of breath. No other aggravating relieving factors. No other associated symptoms Allergies: Coded Allergies: MILK (Verified Allergy, Unknown, 08/16/18) COVID-19 Screening Contact w/high risk pt: No Experienced COVID-19 symptoms?: No COVID-19 Testing performed PEDIATRIC NEUROLOGIST: Yes - tested 03/02/2020 with + COVID-19 Screening: Positive COVID-19 COVID-19 Testing Source: [facility] Patient History Past Medical History: [place], CAD, asthma, other - trach/gtub Social History: Denies: smoking, alcohol use, drug use Now: No Immunizations: UTD Reviewed Nursing Documentation: PMH: Agreed; PSxH: Agreed Nursing Documentation-PMH Past Medical History: No History, Except For Hx Cardiac Problems: Yes - High cholesterol Hx Hypertension: Yes - sudden cariac arrest Hx Asthma: Yes Hx Diabetes: Yes Hx Cancer: No Hx Gastrointestinal Problems: Yes - dysphagia, g-tube Hx Neurological Problems: Yes Hx Seizures: Yes Review of Systems All Other Systems: negative except mentioned in HPI Physical Exam Vital Signs Date Time Temp Pulse Resp B/P (MAP) Pulse Ox O2 Delivery O2 Flow Rate FiO2 03/06/20 00:25 83 20 137/63 (87) 98 Mechanical Ventilator 03/06/20 00:38 40 Sp02 EP Interpretation: reviewed, normal General Appearance: no apparent distress, alert, GCS 15, non-toxic Head: normocephalic, atraumatic Eyes: bilateral eye normal inspection, bilateral eye PERRL ENT: hearing grossly normal, normal pharynx, no angioedema, normal voice Neck: full range of motion, supple/symm/no masses, tracheotomy Respiratory: chest non-tender, lungs clear, normal breath sounds, speaking full sentences Cardiovascular #1: regular rate, rhythm, no edema Cardiovascular #2: 2+ carotid (R), 2+ carotid (L), 2+ radial (R), 2+ radial (L), 2+ dorsalis pedis (R), 2+ dorsalis pedis (L) Gastrointestinal: normal bowel sounds, non tender, soft, non-distended, no guarding, no rebound Rectal: deferred Genitourinary: normal inspection, no CVA tenderness Musculoskeletal: back normal, normal range of motion, gait/station normal, non- tender Neurologic: alert, motor strength/tone normal, oriented x3, sensory intact, responsive Psychiatric: judgement/insight normal, memory normal, mood/affect normal, no suicidal/homicidal ideation Reflexes: 3+ bicep (R), 3+ bicep (L), 3+ tricep (R), 3+ tricep (L), 3+ knee (R), 3+ knee (L) Skin: other - see nursing notes Lymphatic: no adenopathy Medical Decision Making Diagnostic Impression: Primary Impression: Acute on chronic respiratory failure Qualified Codes: J96.20 - Acute and chronic respiratory failure, unspecified whether with hypoxia or hypercapnia Additional Impressions: Sepsis Qualified Codes: A41.9 - Sepsis, unspecified organism UTI (urinary tract infection) Qualified Codes: N39.0 - Urinary tract infection, site not specified Pneumonia Qualified Codes: J18.9 - Pneumonia, unspecified organism ER Course Hospital Course 59-year-old female presenting to ED with + COVID test from halfway facility Differential diagnoses include: Pneumonia, UTI, sepsis, dehydration, [place]/unstable angina Clinical course Patient placed on stretcher. Isolation. I wore full PPE. On school lunch monitor with stable vitals are ED course. After initial history and physical, I ordered labs, IV fluids, EKG, chest x-ray, blood cultures, UA. Labs - electrolytes ok, noted leukocytosis, troponins negative, lactic > 2, UA grossly positive for UTI EKG - NSR no acute ischemic changes interpreted by me CXR - ?retrocardiac consolidatoin COVID swab here negative. No elevated d-dimer. No inflammatory marker elevation. Given IV fluids. Given 30 cc/kg fluid bolus. Given broad-spectrum antibiotics. Patient will remain in isolation. Case discussed with Dr Fox and they agreed to admit patient to their service for further care and support I feel this is a highly complex case requiring extensive working including EKG/Rhythm strip, Xray/CT/US, Blood/urine lab work, repeat exams while in ED, and administration of strong opiates/narcotics for pain control, admission to hospital or close patient follow up. Diagnosis - acute on chronic resp failure, sepsis, UTI, pneumonia Patient admitted to SDU in serious condition Laboratory Tests Test 03/06/20 00:45 White Blood Count 12.1 K/UL (4.8-10.8) H Red Blood Count 4.38 M/UL (4.20-5.40) Hemoglobin 13.4 G/DL (12.0-16.0) Hematocrit 40.2 % (37.0-47.0) Mean Corpuscular Volume 92 FL (80-99) Mean Corpuscular Hemoglobin 30.5 PG (27.0-31.0) Mean Corpuscular Hemoglobin Concent 33.2 G/DL (32.0-36.0) Red Cell Distribution Width 12.8 % (11.6-14.8) Platelet Count 367 K/UL (150-450) Mean Platelet Volume 6.3 FL (6.5-10.1) L Neutrophils (%) (Auto) 63.8 % (45.0-75.0) Lymphocytes (%) (Auto) 26.7 % (20.0-45.0) Monocytes (%) (Auto) 6.5 % (1.0-10.0) Eosinophils (%) (Auto) 1.6 % (0.0-3.0) Basophils (%) (Auto) 1.3 % (0.0-2.0) Prothrombin Time 10.2 SEC (9.30-11.50) Prothromb Time International Ratio 0.9 (0.9-1.1) Activated Partial Thromboplast Time 25 SEC (23-33) D-Dimer 0.39 mg/L FEU (0.00-0.49) Urine Color Yellow Urine Appearance Slightly cloudy Urine pH 6 (4.5-8.0) Urine Specific [place] 1.020 (1.005-1.035) Urine Protein 3+ (NEGATIVE) H Urine Glucose (UA) Negative (NEGATIVE) Urine Ketones Negative (NEGATIVE) Urine Blood 5+ (NEGATIVE) H Urine Nitrite Positive (NEGATIVE) H Urine Bilirubin Negative (NEGATIVE) Urine Urobilinogen Normal MG/DL (0.0-1.0) Urine Leukocyte Esterase 3+ (NEGATIVE) H Urine RBC Tntc /HPF (0 - 2) H Urine WBC Tntc /HPF (0 - 2) H Urine Squamous Epithelial Cells Few /LPF (NONE/OCC) Urine Bacteria Many /HPF (NONE) H Sodium Level 141 MMOL/L (136-145) Potassium Level 4.2 MMOL/L (3.5-5.1) Chloride Level 103 MMOL/L (98-107) Carbon Dioxide Level 37 MMOL/L (21-32) H Anion Gap 2 mmol/L (5-15) L Blood Urea Nitrogen 16 mg/dL (7-18) Creatinine 0.5 MG/DL (0.55-1.30) L Estimat Glomerular Filtration Rate > 60 mL/min (>60) Glucose Level 123 MG/DL (74-106) H Lactic Acid Level 2.10 mmol/L (0.4-2.0) H Calcium Level 9.2 MG/DL (8.5-10.1) Ferritin 87 NG/ML (8-388) Total Bilirubin 0.2 MG/DL (0.2-1.0) Aspartate Amino Transf (AST/SGOT) 13 U/L (15-37) L Alanine Aminotransferase (ALT/SGPT) 35 U/L (12-78) Alkaline Phosphatase 92 U/L (46-116) Lactate Dehydrogenase 157 U/L (81-234) Total Creatine Kinase 16 U/L (26-308) L Creatine Kinase MB < 0.5 NG/ML (0.0-3.6) Creatine Kinase MB Relative Index 3.1 Troponin I 0.000 ng/mL (0.000-0.056) C-Reactive Protein, Quantitative 1.4 mg/dL (0.00-0.90) H Pro-B-Type Natriuretic Peptide 30 pg/mL (0-125) Total Protein 7.7 G/DL (6.4-8.2) Albumin 3.3 G/DL (3.4-5.0) L Globulin 4.4 g/dL Albumin/Globulin Ratio 0.8 (1.0-2.7) L Lipase 365 U/L (73-393) EKG Diagnostic Results Rate: normal Rhythm: NSR ST Segments: no acute changes ASA given to the pt in ED: No Rhythm Strip Diag. Results EP Interpretation: yes Rhythm: NSR, no PVC's, no ectopy Last Vital Signs Date Time Temp Pulse Resp B/P (MAP) Pulse Ox O2 Delivery O2 Flow Rate FiO2 03/06/20 00:38 84 14 40 03/06/20 00:25 137/63 (87) 98 Mechanical Ventilator Status: improved Disposition: ADMITTED INPATIENT Condition: Serious Referrals: Karissa Fox MD (PCP) Jose C Acuña MD Mar 06, 2020 02:33
[2020-03-06] MEDS ORDERED: Azithromycin 500 MG in NS 275 ML IV ONE (02:45)
--- NOTE | 2020-03-06 03:25 | NUR ---
ED Nurse Note: Repeat lactic sent
--- NOTE | 2020-03-06 03:45 | NUR ---
ED Nurse Note: Report given to ROGER GHOSH
--- NOTE | 2020-03-06 05:03 | NUR ---
TRANSFER TO FLOOR: Patient transferred to SDU at rm [id number] via gurney, with compliance monitor, accompanied by RN, RT, lab animal technician. Belongings given and checked with RN. Patient transported safely to bed and endorsed to RN
[2020-03-06] MEDS ORDERED: traMADol 50mg tab ORAL PRN (06:00)
[2020-03-06] MEDS ORDERED: Albuterol ud Inhalation HHN PRN (06:00)
[2020-03-06] MEDS: HydrALAZINE 10mg Tab GT SCH ×3 (07:05→17:05)
--- NOTE | 2020-03-06 07:30 | NUR ---
NURSE NOTES: HAND-OFF: Report given to Radha Esparza. Pt stable in bed
--- NOTE | 2020-03-06 08:13 | NUR ---
NURSE NOTES: Received report from AUGIE DURAN. Patient in bed resting, no active s/s cardiac, respiratory distress noticed at this time. Patient SR with HR 88, Trach to vent Portex 7 SIMV 10 TV 500 Fio2 40% PEEP 5 Pressure support 10. Per teacher tutor, patient who is allergic to milk cannot tolerate glucerna, will inform MD. IV on right hand 20G, asymptomatic, patent, intact. Bed in lowest position, side rails upx3, call light within reach, bed alarm on, Will continue to monitor.
[2020-03-06 09:22] LABS: BASOPHILS % (AUTO) 1.6 % (0.0-2.0); EOSINOPHILS % (AUTO) 1.2 % (0.0-3.0); HEMATOCRIT 39.7 % (37.0-47.0); HEMOGLOBIN 12.9 G/DL (12.0-16.0); LYMPHOCYTES % (AUTO) 19.6 % (20.0-45.0); MEAN CORPUSCULAR VOLUME 93 FL (80-99); MONOCYTES % (AUTO) 5.4 % (1.0-10.0); NEUTROPHILS % (AUTO) 72.3 % (45.0-75.0); PLATELET COUNT 345 K/UL (150-450); RED BLOOD COUNT 4.25 M/UL (4.20-5.40); RED CELL DISTRIBUTION WIDTH 13.1 % (11.6-14.8); WHITE BLOOD COUNT 14.5 K/UL (4.8-10.8)
--- NOTE | 2020-03-06 09:30 | NUR ---
RD ASSESSMENT & RECOMMENDATIONS SEE CARE ACTIVITY FOR COMPLETE ASSESSMENT DAILY ESTIMATED NEEDS: Needs based on Critical care 58kg abw 22-28 kcals/kg 1116-1169 total kcals 1.2-2 g protein/kg 70-116 g total protein 25-30 mL/kg 3721-7282 total fluid mLs NUTRITION DIAGNOSIS: Swallowing difficulty r/t respiratory status as evidenced by pt is vent dep via trach w/ PEG. 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 Pt w/ good tolerance to Vital AF last admission in July 2018 without any side effects. Monitor for any signs of intolerance w/ Vital AF. - Initiate Vital AF 1.2 @ 20ml/hr x 6hrs, advance 10ml q 4-6 hrs as tolerated to goal rate. - Rec to maintain TF run time to x20 hrs for good TF tolerance - Water flush of 120ml q 4 hrs - HOB over 30 degrees ADDITIONAL RECOMMENDATIONS: 1) MONITOR FOR SIGNS OF INTOLERANCE TO FORMULA VITAL AF PT ON SOY BASED FORMULA @ SNF, PT TOLERATED VITAL AF WELL LAST ADM 2) Per SNF: HT=62" and OH=709ffk (03/04/20) vs EMR wt =168lbs -> daily calibrated bedscale wt 3) Monitor lytes, replete as needed
[2020-03-06 09:31] LABS: AMMONIA 43 umol/L (11-32)
[2020-03-06 10:05] LABS: ALANINE AMINOTRANSFERASE 33 U/L (12-78); ALBUMIN 2.9 G/DL (3.4-5.0); ALKALINE PHOSPHATASE 84 U/L (46-116); ANION GAP 4 mmol/L (5-15); ASPARTATE AMINO TRANSFERASE 12 U/L (15-37); BILIRUBIN,DIRECT < 0.1 MG/DL (0.0-0.3); BILIRUBIN,TOTAL 0.3 MG/DL (0.2-1.0); BLOOD UREA NITROGEN 13 mg/dL (7-18); CALCIUM 8.7 MG/DL (8.5-10.1); CARBON DIOXIDE 33 MMOL/L (21-32); CHLORIDE 104 MMOL/L (98-107); CREATININE 0.5 MG/DL (0.55-1.30); POTASSIUM 4.4 MMOL/L (3.5-5.1); SODIUM 141 MMOL/L (136-145)
[2020-03-06] MEDS: levETIRAcetam 500mg/5ml Liquid GT SCH ×2 (10:18→20:44)
[2020-03-06] MEDS: cefTRIAXone 1 GM in D5W 55 ML IVPB SCH (10:18)
[2020-03-06] MEDS: Heparin 5000 units/ml inj SUBQ SCH ×2 (10:20→20:44)
--- NOTE | 2020-03-06 10:30 | NUR ---
NURSE NOTES: Dr. Fox made aware patient allergic to Milk, and GT feeding on glucerna 1.2 at this time, per space sciences director, patient was able to tolerate Vital AF last admission, per MD order Vital AF. Order noted, entered, carried out.
--- NOTE | 2020-03-06 11:56 | NUR ---
CASE MANAGEMENT: REVIEW 59 YEAR OLD FEMALE BIBA FROM [facility] CC: SOB SI: r/o COVID-19 . PNA . UTI . SEPSIS T 98.5 HR 84 RR 14 BP 137/63 SAT 98% MECH VENT FIO2 40 WBC 14.5 CR 0.5 UA: PROTEIN 3+ BLOOD 5+ NITRITE + LEUKOCYTE ESTERASE + IS: AZITHROMYCIN IV X1 ZOSYN IV X1 NS IVF BOLUS X1 PATIENT ADMITTED TO STEP DOWN UNIT 03/06/2020 DCP: PATIENT IS FROM [facility]
--- NOTE | 2020-03-06 16:13 | NUR ---
NURSE NOTES: Dr. Fox made aware of red rash on left armpit, clarified for COVID isolation, Awaiting for callback, Will continue to monitor.
--- NOTE | 2020-03-06 19:25 | NUR ---
NURSE HAND-OFF REPORT: Important Events on Shift: na Patient Status: stable Diet: Vital AF @ goal 55ml/h, now 40ml/h Pending Orders: awaiting for ID consult or med for rash on left armpit Pending Results/Labs:na Pending notification:na Latest Vital Signs: Temperature 98.2 , Pulse 90 , B/P 137 /96 , Respiratory Rate 11 , O2 SAT 98 , Mechanical Ventilator, O2 Flow Rate 40.0 . Vital Sign Comment: stable EKG Rhythm: Sinus Rhythm Rhythm change?: N MD Notified?: - MD Response: Latest Schmidt Fall Score: 50 Fall Risk: High Risk Safety Measures: Call light Within Reach, Bed Alarm Zone 2, Side Rails Side Rails x3, Bed position Low and Locked. Fall Precautions: Patient Fall Education Report given to AUGIE Gonzalez.
--- NOTE | 2020-03-06 19:30 | NUR ---
NURSE NOTES: Got report from Rosamaria GHOSH. Pt resting in bed comfortably, no s/s of distress or discomfort noted at this time. Patient ST with HR 105, Trach to vent Portex 7 SIMV 10 TV 500 Fio2 40% PEEP 5 Pressure support 10. Pt has GTube with Vital AF @40ml/hr (Goal is 55). Will advance as pt tolerates feeding. Pt is incontinent has purewick. Pt has IV on R hand 20G patent and intact. Bed in low and locked position, call light within reach, bedside table within reach, bed alarm on. Continue to monitor.
[2020-03-06] MEDS ORDERED: NS 275ml ONE (21:03)
[2020-03-06] MEDS ORDERED: Tubing IV Secondary IV ONE (21:03)
[2020-03-07] VITALS: BP 143/90
--- NOTE | 2020-03-07 01:45 | History and Physical Report ---
DATE OF ADMISSION: 03/06/2020 This is the first admission to [facility] of this 59-year-old lady because of positive PCR banuelos test. HISTORY OF PRESENT ILLNESS: Patient is a resident of an extended care facility subacute unit where she has been in stable condition now for nearly a year. She is known to have a long list of chronic medical syndrome, but has been stable on current medications. In particular, the patient with a long series of banuelos tests since January 2020 at a weekly basis and all of them were negative. The last test was taken on 03/02/2020 returned yesterday as a positive test. Because of lack of isolation room in the facility, patient was transferred to [facility] ER and was admitted. PAST MEDICAL HISTORY: The patient has cerebrovascular accident in 2019 that led to acute respiratory failure. She had to be intubated and placed on mechanical ventilation. She failed to be weaned, underwent tracheostomy and gastrostomy and transferred to the subacute unit. Medically, she is known to have right hemiplegia, dysarthria with unclear speech, seizure disorder, high blood pressure, hyper ammonia syndrome, gastroesophageal reflux disease, hyperlipidemia, and hypovitaminosis D. PAST SURGICAL HISTORY: Only surgery that patient underwent is tracheostomy and gastrostomy. ALLERGIES: Patient is allergic to milk. FAMILY HISTORY: The medical history for her parents is unknown to the patient who apparently reside in [place], patient does not know the cause. She has some in and out of the country. She has 1 son in good health. SOCIAL HISTORY: She is . She was born in [place]. She has been in [place] for many years. 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 HABITS: Patient did not smoke, drink, or use illicit drugs even though it is unclear how patient developed hyper ammonia syndrome. REVIEW OF SYSTEMS: CONSTITUTIONAL: Patient denies any chest pain, shortness of breath, palpitations, or dizziness. PULMONARY: Patient denied any cough, wheezing, or expectoration. GASTROINTESTINAL: Appetite is moderate. Her weight is stable. She has no dysphagia. No dyspepsia. No bowel movement disorder, but patient is fed by gastrostomy tube and failed several times swallowing eval. GENITOURINARY: Patient denies any dysuria, frequency, incontinence, or nocturia. Patient is in diaper. JOINTS: Patient denies any swelling, stiffness, cold extremities, photosensitivity, dry eyes, or alopecia. CENTRAL NERVOUS SYSTEM: Her sleep is of good quality. She has no numbness, tingling, and has no headaches. She did have a history of chronic conjunctivitis in the left eye. MEDICATIONS: Patient is on atorvastatin 10 mg daily, rifaximin 550 mg b.i.d., levetiracetam 500 mg q.12h., famotidine 20 mg b.i.d., amlodipine 5 mg daily, heparin 5000 units subcutaneously q.12h. She has been placed on ceftriaxone 1 g IV piggyback q.24h. since admission. She is on ibuprofen 400 mg q.6h. p.r.n. She is on tramadol 50 mg q.8h. p.r.n. for pain and she is on hydralazine 10 mg q.6h. for blood pressure above 160. PHYSICAL EXAMINATION: VITAL SIGNS: Blood pressure is 137/96, pulse is 87, respirations 11, temperature 98.2. HEENT: Eyes were normal. Pupils were round, equal, and reactive to light. Sclerae was white. Conjunctivae was pink. Extraocular movements were normal. Temporal arteries were palpable bilaterally. There was no bilateral temporal wasting. Visual field to confrontation. Neglect sign could not be assessed because of lack of patient's understanding of what she is expected to do. ENT, mucous membranes were not dehydrated. Auditory canals were clear and tympanic membranes could not be visualized. Nasal cavity was not congested. Nasal septum was intact. Soft palate was free of ulcerations. Pharynx, uvula could not be visualized. Tongue was moist, midline, and normally papillated. NECK: Supple. There was no goiter. No mass. No lymphadenopathy. There was no JVD. No bruits. Carotid upstroke was 2+. Tracheostomy site is clean. LUNGS: Clear without rhonchi, rales, or wheezing. HEART: PMI was fifth left intercostal space midclavicular line. There was normal S1 and normal S2. There was no murmur. No arrhythmia. No S3. No S4. No pericardial rub. ABDOMEN: Soft, nontender without organomegaly. There were no masses palpable. There were normal bowel sounds without bruit. There was no guarding. No rebound tenderness. No ascites. No hernia. No CVA tenderness. Liver span was 8 cm, mostly nontender. EXTREMITIES: No cyanosis, no clubbing, and no edema. Extremities were warm. NEUROLOGICAL: Reflexes in biceps, triceps, and brachioradialis were present. Patellar retinaculum were difficult to elicit. Plantar were in extension on the right and flexion on the left. Cranial nerves II through XII were symmetric and equal. There was facial deviation to the left. Cerebellar function, there was no tremor. No nystagmus. No extrapyramidal rigidity. Sensory exam to pinprick, cotton touch, position, and motor strength could not be assessed because of lack of patient cooperation. LABORATORY AND DIAGNOSTIC DATA: Hemoglobin is 12.9, hematocrit 39.7, MCV of 93, WBC of 14.5, and platelets of 345. Her BUN and creatinine is 13 and 0.5 respectively. Her sodium is 141, potassium 4.4, chloride 104, CO2 is 33. Her lactic acid was 2.1 and was 2.2 this morning. Repeat was ordered. SGOT, SGPT, and alkaline phosphatase were normal. Ammonia was 43. Albumin was 2.9 and total protein was 7.1. Troponin was undetected. Her chest x-ray showed no active disease. Her heart was enlarged. Normal calcified loose body measuring 1.9/2.3 in the left subcapsular recess. The lung has no infiltrate. Her urinalysis shows ken-nhnqvvjy-jb-count rbc's and ozy-krdysxzk-jp-count wbc's. Her INR was 0.9. D-dimer was 0.39 and PTT was 25. IMPRESSION: Patient tested positive to COVID in the subacute unit. However, the test was negative in [place] ER. Patient has leukocytosis and pyuria and was placed on ceftriaxone 1 g IV piggyback q.24h. In addition, patient has a rash localized to the left scapular area and middle of the scapula, which appeared to be an infection. Patient will receive permethrin 5% today over the body and Ivermectin 20 mg 1 time. PCR test and the rapid test will be repeated to ascertain the patient is free of banuelos prior to her being discharged. At the present time, patient is awake, alert, afebrile, hemodynamically stable, completely asymptomatic without any new medical issue. Therefore, no specific specialist had been called as yet to assist in the management of this case. We will wait for the result of repeat PCR and rapid test in a.m. Karissa Fox M.D. DR: RAIZA JOB#: [id number] CC:
[2020-03-07 04:00] VITALS: BP 144/87
[2020-03-07] MEDS: HydrALAZINE 10mg Tab GT SCH ×4 (06:11→17:31)
--- NOTE | 2020-03-07 07:30 | NUR ---
NURSE HAND-OFF REPORT: Important Events on Shift:[] Patient Status: [Stable] Diet: [Vital AF@55] Pending Orders: [] Pending Results/Labs:[Covid Swab PCR] Pending MD notification:[] Latest Vital Signs: Temperature 99.0 , Pulse 101 , B/P 144 /87 , Respiratory Rate 12 , O2 SAT 98 , Mechanical Ventilator, O2 Flow Rate 40.0 . Vital Sign Comment: [] EKG Rhythm: Sinus Rhythm Rhythm change?: N MD Notified?: - MD Response: Latest Schmidt Fall Score: 50 Fall Risk: High Risk Safety Measures: Call light Within Reach, Bed Alarm Zone 2, Side Rails Side Rails x3, Bed position Low and Locked. Fall Precautions: Patient Fall Education Report given to [Rosamaria GHOSH].
--- NOTE | 2020-03-07 07:32 | NUR ---
NURSE NOTES: Received report from AUGIE Gonzalez. Patient in bed resting, no active s/s cardiac, respiratory distress noticed at this time. Patient HR 102 ST. Patient trach to vent Portex 7 SIMV 10 TV 500 Fio2 40% PEEP 5 Pressure support 10. GT feeding on hold per order, Vital AF @ 55ml/h. IV on right hand 20G, asymptomatic, patent, intact. Endorsed MD aware of rash on left armpit, order accordingly, 3rd swab for COVID pending. Bed in lowest position, side rails upx3, call light within reach, bed alarm on, Will continue to monitor.
--- NOTE | 2020-03-07 07:53 | NUR ---
NURSE NOTES: Per Dr. Fox Vitamin D 5,000 unit. Order noted, entered, carried out.
[2020-03-07 08:00] VITALS: BP 148/96
[2020-03-07] MEDS: Vitamin D 1000 IU Tab GT SCH (09:32)
[2020-03-07] MEDS: levETIRAcetam 500mg/5ml Liquid GT SCH ×2 (09:32→21:08)
[2020-03-07] MEDS: cefTRIAXone 1 GM in D5W 55 ML IVPB SCH (10:13)
[2020-03-07] MEDS: Heparin 5000 units/ml inj SUBQ SCH ×2 (10:14→21:14)
[2020-03-07 12:00] VITALS: BP 146/98
--- NOTE | 2020-03-07 13:35 | NUR ---
CASE MANAGEMENT: REVIEW SI: PNA . UTI . SEPSIS T 99.5 HR 111 RR 19 BP 146/98 SAT 98% MECH VENT FIO2 40 SARS-CoV-2, CARRI NEGATIVE IS: RIFAXIMIN GT QHS KEPPRA GT Q12HR CEFTRIAXONE IV Q24HR HEPARIN SUBQ Q12HR STEP DOWN UNIT STATUS DCP: PATIENT IS FROM [facility]
[2020-03-07 16:00] VITALS: BP 144/90
--- NOTE | 2020-03-07 16:01 | NUR ---
INSURANCE CLINICALS/REVIEW FAXED TO [facility] [phone]
[2020-03-07] MEDS ORDERED: MIRALAX17 G2 ORAL (16:34)
[2020-03-07] MEDS ORDERED: VITAMIN D325 MC1 GT (16:34)
[2020-03-07] MEDS ORDERED: LACRI-LUBE1 APPLIC LEFT EYE (16:34)
[2020-03-07] MEDS ORDERED: PROAIR HFA8.5 GM INH ×2 (16:34)
[2020-03-07] MEDS ORDERED: ACETAMINOPHEN325 M1 ORAL (16:34)
[2020-03-07] MEDS ORDERED: ACETAMINOPHEN120 MG RECTAL (16:34)
[2020-03-07] MEDS ORDERED: CATAPRES0.1 MG ORAL (16:34)
[2020-03-07] MEDS ORDERED: ARTIFICIAL TEAR15 ML BOTH EYES (16:34)
[2020-03-07] MEDS ORDERED: IPRATROPIU0.2 MG/1 M HHN ×2 (16:34)
[2020-03-07] MEDS ORDERED: TRIAMCINOLONE A15 G1 TP (16:34)
[2020-03-07] MEDS ORDERED: ZOFRAN4 M3 ORAL (16:34)
[2020-03-07] MEDS ORDERED: IBUPROFEN400 MG ORAL (16:34)
--- NOTE | 2020-03-07 17:51 | NUR ---
NURSE NOTES: Paged Dr. Fox regarding blood culture resulted as gram + cocci in cluster, awaiting for callback.
--- NOTE | 2020-03-07 19:04 | NUR ---
NURSE HAND-OFF REPORT: Important Events on Shift: blood culture positive, fever 100.8 Patient Status: stable Diet: Vital AF@ 55ml/h Pending Orders: na Pending Results/Labs:na Pending MD notification:awaiting for Dr. Fox for blood culture, fever order Latest Vital Signs: Temperature 100.2 , Pulse 112 , B/P 144 /90 , Respiratory Rate 11 , O2 SAT 100 , Mechanical Ventilator, O2 Flow Rate 40.0 . Vital Sign Comment: mild fever 100.8 EKG Rhythm: Sinus Tachycardia Rhythm change?: N MD Notified?: - MD Response: Latest Schmidt Fall Score: 50 Fall Risk: High Risk Safety Measures: Call light Within Reach, Bed Alarm Zone 2, Side Rails Side Rails x3, Bed position Low and Locked. Fall Precautions: Patient Fall Education Report given to AUGIE Gonzalez.
--- NOTE | 2020-03-07 19:06 | NUR ---
NURSE NOTES: Got report from Rosamaria GHOSH. Pt resting in bed comfortably, no s/s of distress or discomfort noted at this time. Patient Sr with HR 95, Trach to vent Portex 7 SIMV 10 TV 500 Fio2 40% PEEP 5 Pressure support 10. Pt has GTube with Vital AF @55ml/hr. Pt is incontinent has purewick. Pt has IV on R hand 20G patent and intact. Bed in low and locked position, call light within reach, bedside table within reach, bed alarm on. Continue to monitor.
[2020-03-07 20:00] VITALS: BP 147/88
--- NOTE | 2020-03-07 21:55 | General Progress Note ---
Subjective Constitutional: Reports: no symptoms HEENT: Reports: no symptoms Cardiovascular: Reports: no symptoms Respiratory: Reports: no symptoms Gastrointestinal/Abdominal: Reports: no symptoms Genitourinary: Reports: no symptoms Neurologic/Psychiatric: Reports: no symptoms Hematologic/Lymphatic: Reports: no symptoms Allergies: Coded Allergies: MILK (Verified Allergy, Unknown, 08/16/18) Objective Last 24 Hour Vital Signs Date Time Temp Pulse Resp B/P (MAP) Pulse Ox O2 Delivery O2 Flow Rate FiO2 03/07/20 19:10 105 18 40 03/07/20 17:31 144/90 03/07/20 17:19 100.2 03/07/20 16:00 40 03/07/20 16:00 100.2 110 11 144/90 (108) 100 03/07/20 16:00 112 03/07/20 16:00 Mechanical Ventilator 03/07/20 15:36 78 20 40 03/07/20 12:53 146/98 03/07/20 12:00 40 03/07/20 12:00 Mechanical Ventilator 03/07/20 12:00 110 03/07/20 12:00 99.5 111 19 146/98 (114) 98 03/07/20 11:16 110 17 40 03/07/20 09:33 108 144/87 03/07/20 08:00 110 03/07/20 08:00 Mechanical Ventilator 03/07/20 08:00 99.1 102 12 148/96 (113) 99 03/07/20 08:00 40 03/07/20 07:28 108 17 40 03/07/20 06:11 144/87 03/07/20 04:00 Mechanical Ventilator 03/07/20 04:00 40 03/07/20 04:00 97 03/07/20 04:00 99.0 101 12 144/87 (106) 98 03/07/20 03:26 98 15 40 03/07/20 00:00 Mechanical Ventilator 03/07/20 00:00 96 03/07/20 00:00 143/90 03/07/20 00:00 99.7 95 12 143/90 (107) 95 03/06/20 22:24 94 12 40 Intake and Output 03/06/20 03/07/20 19:00 07:00 Intake Total 445 ml 85 ml Balance 445 ml 85 ml Intake Free Water 90 ml 30 ml IV Total 55 ml Tube Feeding 300 ml 55 ml # Voids 2 3 Height (Feet): 5 Height (Inches): 3.00 Weight (Pounds): 168 General Appearance: WD/WN, alert, confused EENT: normal ENT inspection Neck: supple Cardiovascular: normal rate, regular rhythm, no gallop/murmur, no JVD Respiratory/Chest: lungs clear, normal breath sounds, no respiratory distress, no accessory muscle use Abdomen: normal bowel sounds, non tender, soft, no organomegaly, no mass Neurologic: alert, responsive, disoriented Assessment/Plan Status Narrative Patient developed fever today associated with his tachycardia. She has 2+ cultures both of them taking on March 06 subto COVID-19 rapid test came back a nd again it is negative her PCR test is pending Grew gram-negative rods in 2 out of 2 blood culture grew gram-positive cocci Patient was placed on vancomycin 1 g IV piggyback every 12 and Zosyn 3.375 g IV piggyback every 6 her Repeat laboratory tests chest x-ray and UA will be done in a.m. Treatment for out of both infection was given yesterday that include permethrin 5% cream and ivermectin 12 mg via G-tube once Karissa Turcios MD, MD Mar 07, 2020 21:55
[2020-03-08] VITALS: BP 135/98
[2020-03-08] MEDS ORDERED: Miralax 17gm pkt GT PRN (00:30)
[2020-03-08] MEDS ORDERED: Docusate 100mg cap ORAL PRN (00:30)
[2020-03-08] MEDS ORDERED: Lactulose 20gm/30ml UDC GT PRN (00:30)
[2020-03-08] MEDS ORDERED: Docusate 100mg/10ml Liq GT PRN (00:45)
[2020-03-08] MEDS ORDERED: Bisacodyl EC 5mg tab ORAL PRN (00:45)
[2020-03-08] MEDS ORDERED: Milk of Magnesia 30ml Ud GT PRN (00:45)
[2020-03-08] MEDS: Vancomycin 1 GM in D5W 275 ML IVPB SCH ×3 (03:37→20:39)
[2020-03-08 03:49] LABS: EOSINOPHILS % (AUTO) 1.7 % (0.0-3.0); HEMATOCRIT 42.4 % (37.0-47.0); LYMPHOCYTES % (AUTO) 26.3 % (20.0-45.0); MEAN CORPUSCULAR VOLUME 92 FL (80-99); MONOCYTES % (AUTO) 8.7 % (1.0-10.0); NEUTROPHILS % (AUTO) 60.3 % (45.0-75.0); PLATELET COUNT 356 K/UL (150-450); RED BLOOD COUNT 4.62 M/UL (4.20-5.40); RED CELL DISTRIBUTION WIDTH 12.7 % (11.6-14.8); WHITE BLOOD COUNT 11.9 K/UL (4.8-10.8)
[2020-03-08 04:00] VITALS: BP 146/89
[2020-03-08 04:40] LABS: ALANINE AMINOTRANSFERASE 26 U/L (12-78); ALBUMIN 3.1 G/DL (3.4-5.0); ALBUMIN/GLOBULIN RATIO 0.7 (1.0-2.7); ALKALINE PHOSPHATASE 90 U/L (46-116); ANION GAP 6 mmol/L (5-15); ASPARTATE AMINO TRANSFERASE 8 U/L (15-37); BILIRUBIN,TOTAL 0.3 MG/DL (0.2-1.0); BLOOD UREA NITROGEN 15 mg/dL (7-18); CALCIUM 9.4 MG/DL (8.5-10.1); CARBON DIOXIDE 37 MMOL/L (21-32); CHLORIDE 99 MMOL/L (98-107); CREATININE 0.5 MG/DL (0.55-1.30); POTASSIUM 3.9 MMOL/L (3.5-5.1); SODIUM 142 MMOL/L (136-145)
[2020-03-08] MEDS: Piperacillin/Tazobactam 3.375 GM in NS 110 ML IVPB SCH ×3 (05:05→22:53)
[2020-03-08] MEDS: HydrALAZINE 10mg Tab GT SCH ×5 (05:55→23:16)
--- NOTE | 2020-03-08 06:42 | Consultation ---
History of Present Illness General Chief Complaint: General Complaint Present Illness Allergies: Coded Allergies: MILK (Verified Allergy, Unknown, 08/16/18) Medication History Scheduled Albuterol Sulfate* (Proair Hfa*), 2 PUFFS INH Q6H, (Reported) Amlodipine Besylate (Norvasc), 5 MG GT DAILY, (Reported) Artificial Tears (Refresh Lacri-Lube Ointment), 1 APPLIC LEFT EYE Q12HR, (Reported) Atorvastatin Calcium* (Atorvastatin Calcium*), 20 MG GT BEDTIME, (Reported) Cholecalciferol (Vitamin D3) (Vitamin D3*), 5,000 UNIT GT DAILY, (Reported) Clonidine Hcl* (Catapres*), 0.1 MG ORAL EVERY 8 HOURS, (Reported) Docusate Sodium* (Colace*), 100 MG GT DAILY, (Reported) Famotidine* (Pepcid 20mg tablet*), 20 MG GT TWICE A DAY, (Reported) Hydralazine Hcl* (Hydralazine Hcl*), 10 MG GT EVERY 6 HOURS, (Reported) Ibuprofen* (Motrin*), 400 MG ORAL Q6H, (Reported) Ipratropium [place] 0.5MG/2.5ML (Ipratropium [place] 0.5MG/2.5ML), 2 PUFF HHN Q6H, (Reported) Lactobacillus Acidophilus/Pect (Acidophilus-Pectin Tab Chew), 1 EACH GT DAILY, (Reported) Lactulose (Lactulose*), 30 ML GT QID, (Reported) Levetiracetam (Keppra), 5 ML GT Q12HR, (Reported) Multivitamin With Minerals (Multivitamins With Minerals*), 1 TAB GT DAILY, (Reported) Rifaximin* (Xifaxan*), 550 MG ORAL TWICE A DAY, (Reported) Triamcinolone Acetonide (Triamcinolone Acetonide 0.5% Cream*), 15 GM TP DAILY, (Reported) Scheduled PRN Acetaminophen* (Acetaminophen 325MG Tablet*), 650 MG ORAL Q4H PRN for PAIN/TEMP>101, (Reported) Albuterol Sulfate* (Proair Hfa*), 2 PUFFS INH Q3HR PRN for Shortness of Breath, (Reported) Dextran 70/Hypromellose (Artificial Tears Eye Drops*), 2 DROP BOTH EYES Q6HR PRN for Dry Eyes, (Reported) Ipratropium [place] 0.5MG/2.5ML (Ipratropium [place] 0.5MG/2.5ML), 2 PUFF HHN Q3HR PRN for Shortness of Breath, (Reported) Na Phos,M-B/Na Phos,Di-Ba* (Fleet Enema*), 133 ML RECTAL PRN PRN for Con stipation, (Reported) Ondansetron* (Zofran*), 4 MG ORAL Q6H PRN for Nausea & Vomiting, (Reported) Polyethylene Glycol 3350* (Miralax*), 17 GM ORAL DAILY PRN for Constipation, (Reported) Tramadol Hcl* (Ultram*), 50 MG ORAL Q8HR PRN for For Pain, (Reported) Miscellaneous Medications Chlorhexidine Gluconate* (Hibiclens*), 15 ML ORAL, (Reported) Discontinued Medications Acetaminophen* (Tylenol*), 120 MG RECTAL Q4H PRN for Mild Pain/Temp > 100.5, (Reported) Discontinued Reason: Therapy completed Albuterol Sulfate* (Albuterol Sulfate Hhn*), 3 ML INH Q4H PRN for Shortness of Breath, (Reported) Discontinued Reason: Prescription changed Amino Acids/Protein Hydrolys (Pro-Stat Liquid), 30 ML GT DAILY, (Reported) Discontinued Reason: Therapy completed Amlodipine Besylate (Norvasc), 5 MG ORAL DAILY, (Reported) Discontinued Reason: Therapy completed Cephalexin* (Keflex*), 500 MG ORAL TID Discontinued Reason: Therapy completed Cran/Vitc/Mannose/Inulin/Brom (Uti-Stat Liquid), 3,875 MG GT TWICE A DAY, (Reported) Discontinued Reason: Therapy completed Dextran 70/Hypromellose (Artificial Tears Eye Drops*), 2 DROP BOTH EYES, (Reported) Discontinued Reason: Therapy completed Ergocalciferol (Vitamin D2)* (Vitamin D*), 50,000 UNIT GT ONCE A WEEK, (Reported) Discontinued Reason: Therapy completed Ibuprofen (Motrin), 400 MG GT Q6H PRN for For Pain, (Reported) Discontinued Reason: Therapy completed Lactulose (Lactulose*), 30 ML ORAL BID Discontinued Reason: Therapy completed Polymyxin/Trimethoprim (Polytrim Eye Drops), 2 DROP OPHTHALM THREE TIMES A DAY Discontinued Reason: Therapy completed Promethazine Hcl (Promethazine Hcl*), 5 ML GT Q6H, (Reported) Discontinued Reason: Therapy completed Patient History Healthcare decision maker Resuscitation status Advanced Directive on File Physical Exam Last 24 Hour Vital Signs Date Time Temp Pulse Resp B/P (MAP) Pulse Ox O2 Delivery O2 Flow Rate FiO2 03/08/20 05:55 146/89 03/08/20 04:00 40 03/08/20 04:00 98.4 93 13 146/89 (108) 96 03/08/20 04:00 Mechanical Ventilator 03/08/20 04:00 90 03/08/20 02:56 94 15 40 03/08/20 00:00 Mechanical Ventilator 03/08/20 00:00 98.8 97 13 135/98 (110) 97 03/08/20 00:00 135/98 03/08/20 00:00 40 03/08/20 00:00 95 03/07/20 22:57 90 14 40 03/07/20 20:00 98.2 95 13 147/88 (107) 98 03/07/20 20:00 Mechanical Ventilator 03/07/20 20:00 40 03/07/20 19:42 100 03/07/20 19:10 105 18 40 03/07/20 17:31 144/90 03/07/20 17:19 100.2 03/07/20 16:00 40 03/07/20 16:00 100.2 110 11 144/90 (108) 100 03/07/20 16:00 112 03/07/20 16:00 Mechanical Ventilator 03/07/20 15:36 78 20 40 03/07/20 12:53 146/98 03/07/20 12:00 40 03/07/20 12:00 Mechanical Ventilator 03/07/20 12:00 110 03/07/20 12:00 99.5 111 19 146/98 (114) 98 03/07/20 11:16 110 17 40 03/07/20 09:33 108 144/87 03/07/20 08:00 110 03/07/20 08:00 Mechanical Ventilator 03/07/20 08:00 99.1 102 12 148/96 (113) 99 03/07/20 08:00 40 03/07/20 07:28 108 17 40 Intake and Output 03/07/20 03/08/20 19:00 07:00 Intake Total 640 ml 55 ml Output Total 650 ml 500 ml Balance -10 ml -445 ml Intake Free Water 90 ml IV Total 55 ml Tube Feeding 495 ml 55 ml Output Urine Total 650 ml 500 ml # Voids 2 Laboratory Tests Test 03/08/20 03:15 White Blood Count 11.9 K/UL (4.8-10.8) H Red Blood Count 4.62 M/UL (4.20-5.40) Hemoglobin 14.0 G/DL (12.0-16.0) Hematocrit 42.4 % (37.0-47.0) Mean Corpuscular Volume 92 FL (80-99) Mean Corpuscular Hemoglobin 30.3 PG (27.0-31.0) Mean Corpuscular Hemoglobin Concent 33.1 G/DL (32.0-36.0) Red Cell Distribution Width 12.7 % (11.6-14.8) Platelet Count 356 K/UL (150-450) Mean Platelet Volume 6.3 FL (6.5-10.1) L Neutrophils (%) (Auto) 60.3 % (45.0-75.0) Lymphocytes (%) (Auto) 26.3 % (20.0-45.0) Monocytes (%) (Auto) 8.7 % (1.0-10.0) Eosinophils (%) (Auto) 1.7 % (0.0-3.0) Basophils (%) (Auto) 3.0 % (0.0-2.0) H Sodium Level 142 MMOL/L (136-145) Potassium Level 3.9 MMOL/L (3.5-5.1) Chloride Level 99 MMOL/L (98-107) Carbon Dioxide Level 37 MMOL/L (21-32) H Anion Gap 6 mmol/L (5-15) Blood Urea Nitrogen 15 mg/dL (7-18) Creatinine 0.5 MG/DL (0.55-1.30) L Estimat Glomerular Filtration Rate > 60 mL/min (>60) Glucose Level 180 MG/DL (74-106) H Calcium Level 9.4 MG/DL (8.5-10.1) Total Bilirubin 0.3 MG/DL (0.2-1.0) Aspartate Amino Transf (AST/SGOT) 8 U/L (15-37) L Alanine Aminotransferase (ALT/SGPT) 26 U/L (12-78) Alkaline Phosphatase 90 U/L (46-116) Total Protein 7.8 G/DL (6.4-8.2) Albumin 3.1 G/DL (3.4-5.0) L Globulin 4.7 g/dL Albumin/Globulin Ratio 0.7 (1.0-2.7) L Height (Feet): 5 Height (Inches): 3.00 Weight (Pounds): 168 Medications Current Medications Medications (Trade) Dose Ordered Sig/Marzena Route PRN Reason Start Time Stop Time Status Last Admin Dose Admin Acetaminophen (Tylenol) 650 mg Q4H PRN GT Temp >100.5 03/08/20 00:45 04/07/20 00:44 Albuterol Sulfate (Proventil) 2.5 mg Q4H PRN HHN Shortness of Breath 03/06/20 06:00 03/11/20 05:59 Amlodipine Besylate (Norvasc) 5 mg DAILY GT 03/06/20 09:00 04/05/20 08:59 03/07/20 09:33 Artificial Tears ([place]wa-Tears) 2 drop Q6H PRN BOTH EYES Dry Eyes 03/06/20 06:00 04/05/20 05:59 Atorvastatin Calcium (Lipitor) 10 mg BEDTIME GT 03/06/20 21:00 06/04/20 20:59 03/07/20 21:09 Ceftriaxone Sodium 1 gm/ Dextrose 55 ml @ 110 mls/hr Q24H IVPB 03/06/20 08:00 03/13/20 07:59 03/07/20 10:13 Docusate Sodium (Colace) 100 mg BID PRN GT Constipation 03/08/20 00:45 04/07/20 00:44 Famotidine (Pepcid) 20 mg TWICE A DAY GT 03/06/20 09:00 06/04/20 08:59 03/07/20 17:31 Heparin Sodium (Porcine) (Heparin 5000 units/ml) 5,000 units EVERY 12 HOURS SUBQ 03/06/20 09:00 04/20/20 08:59 03/07/20 21:14 Hydralazine HCl (Apresoline) 10 mg EVERY 6 HOURS GT 03/06/20 06:00 06/04/20 05:59 03/08/20 05:55 Ibuprofen (Advil) 400 mg Q6H PRN ORAL Moderate Pain (Pain Scale 4-6) 03/06/20 06:30 04/05/20 06:29 03/07/20 16:49 Lactulose (Cephulac) 20 gm EVERY 6 HOURS PRN GT Constipation 03/08/20 00:30 04/07/20 00:29 Levetiracetam (Keppra) 500 mg Q12HR GT 03/06/20 09:00 04/05/20 08:59 03/07/20 21:08 Magnesium Hydroxide (Mom) 30 ml BID PRN GT Constipation 03/08/20 00:45 04/07/20 00:44 Piperacillin Sod/ Tazobactam Sod 3.375 gm/Sodium Chloride 110 ml @ 27.5 mls/hr EVERY 8 HOURS IVPB 03/08/20 06:00 03/15/20 05:59 Polyethylene Glycol (Miralax) 17 gm DAILY PRN GT Constipation 03/08/20 00:30 04/07/20 00:29 Rifaximin (Xifaxan) 550 mg TWICE A DAY ORAL 03/06/20 09:00 03/13/20 08:59 03/07/20 17:31 Tramadol HCl (Ultram) 50 mg Q8H PRN ORAL Severe Pain (Pain Scale 7-10) 03/06/20 06:00 03/13/20 05:59 Vancomycin HCl 1 gm/Dextrose 275 ml @ 183.708 mls/hr Q8HR@0400,1200,2000 IVPB 03/08/20 04:00 03/13/20 03:59 Vitamin D (Vitamin D) 5,000 intlu DAILY GT 03/07/20 09:00 04/06/20 08:59 03/07/20 09:32 Assessment/Plan Assessment/Plan: Hematology Consult REQ : Karissa Fox DOS: 03/08/20 RFC: Leukocytosis, persistent Covering Dr. Fox ID [id number] y/o well known to me from prior admission, with hx of cardiac arrest, cerebral hemorrhage c/w aphasia and R hemiplegia, chronic trach and peg, HLD, HTN, bed bound, SNF resident presents to ED on 2 days ago with chest pain and increasing SOB, tracheal secretions, with pcr covid that was positive. Upon admission noted to be hypotensive, elevated lactate and leukocytosis. Admitted for past week now. Grew + rods and cocci in blood, heme consulted. Coded Allergies: MILK (Verified Allergy, Unknown, 08/16/18) Meds Scheduled Amino Acids/Protein Hydrolys (Pro-Stat Liquid), 30 ML GT DAILY, (Reported) Amlodipine Besylate (Norvasc), 5 MG GT DAILY, (Reported) Atorvastatin Calcium* (Atorvastatin Calcium*), 10 MG GT BEDTIME, (Reported) Cephalexin* (Keflex*), 500 MG ORAL TID Cran/Vitc/Mannose/Inulin/Brom (Uti-Stat Liquid), 3,875 MG GT TWICE A DAY, (Reported) Docusate Sodium* (Colace*), 100 MG GT DAILY, (Reported) Ergocalciferol (Vitamin D2)* (Vitamin D*), 50,000 UNIT GT ONCE A WEEK, (Reported) Famotidine (Famotidine), 20 MG GT TWICE A DAY, (Reported) Hydralazine Hcl* (Hydralazine Hcl*), 10 MG GT EVERY 6 HOURS, (Reported) Lactobacillus Acidophilus/Pect (Acidophilus-Pectin Tab Chew), 1 EACH GT DAILY, (Reported) Lactulose (Lactulose*), 30 ML ORAL BID Lactulose (Lactulose*), 30 ML GT TWICE A DAY, (Reported) Levetiracetam (Keppra), 5 ML GT Q12HR, (Reported) Multivitamin With Minerals (Multivitamins With Minerals*), 1 TAB GT DAILY, (Reported) Na Phos,M-B/Na Phos,Di-Ba* (Fleet Enema*), 133 ML RECTAL PRN, (Reported) Polymyxin/Trimethoprim (Polytrim Eye Drops), 2 DROP OPHTHALM THREE TIMES A DAY Promethazine Hcl (Promethazine Hcl*), 5 ML GT Q6H, (Reported) Scheduled PRN Albuterol Sulfate* (Albuterol Sulfate Hhn*), 3 ML INH Q4H PRN for Shortness of Breath, (Reported) Ibuprofen* (Motrin*), 400 MG GT Q6H PRN for For Pain, (Reported) Miscellaneous Medications Chlorhexidine Gluconate* (Hibiclens*), 15 ML ORAL, (Reported) Dextran 70/Hypromellose (Artificial Tears Eye Drops*), 2 DROP BOTH EYES, (Reported) Patient History Healthcare decision maker Resuscitation status Full Code Advanced Directive on File Pmhx: as above Shx: She is . She was born in [place] and lived in [place] for many years. The patient denied any smoking, drinking or use of illicit drugs. Fhx non contributory All Other Systems: negative except mentioned in HPI PE HEENT: Pupils were round, equal, and reactive to light. Sclerae was white. . ENT, mucous membranes were not dehydrated. NECK: Supple. There was no goiter. No mass. ++ trach LUNGS: Clear with decreased breath sounds in both bases HEART: There was normal S1 and normal S2. ABDOMEN: Soft. Nontender without organomegaly. ++ peg EXTREMITIES: No cyanosis, no clubbing, and no edema. Extremities were warm. Labs: 03/08 wbc 11, hgb 13, plt 356 Assessment/Plan # Leukocytosis with likely due to uti/bacteremia --> has not received steriods --> trend 12-->13-->11 --> smear reviewed, no major abnml noted --> on abx as per id zosyn/vanc # Anemia of chronic disease due to underlying chronic medical issues, multifactorial --> Anemia workup only if hgb <10 --> No evidence of hemolysis is noted, peripheral smear has been reviewed. --> Hgb goal >7. Transfuse prn. 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 Greatly appreciate consultation! Asael Raman MD Mar 08, 2020 06:42
--- NOTE | 2020-03-08 07:12 | NUR ---
NURSE HAND-OFF REPORT: Important Events on Shift:[] Patient Status: [] Diet: [] Pending Orders: [] Pending Results/Labs:[] Pending MD notification:[] Latest Vital Signs: Temperature 98.4 , Pulse 90 , B/P 146 /89 , Respiratory Rate 13 , O2 SAT 96 , Mechanical Ventilator, O2 Flow Rate 40.0 . Vital Sign Comment: [] EKG Rhythm: Sinus Rhythm Rhythm change?: N MD Notified?: - MD Response: Latest Schmidt Fall Score: 50 Fall Risk: High Risk Safety Measures: Call light Within Reach, Bed Alarm Zone 2, Side Rails Side Rails x3, Bed position Low and Locked. Fall Precautions: Patient Fall Education Report given to [Yusuf GHOSH].
[2020-03-08 08:00] VITALS: BP 154/85
--- NOTE | 2020-03-08 09:48 | NUR ---
RADIOLOGY DEPT., CHEST X-RAY DONE.-P.DYE
[2020-03-08] MEDS: Acetaminophen 650mg/20.3ml GT PRN (10:16)
[2020-03-08] MEDS: cefTRIAXone 1 GM in D5W 55 ML IVPB SCH (10:16)
[2020-03-08] MEDS: levETIRAcetam 500mg/5ml Liquid GT SCH ×2 (10:17→20:40)
[2020-03-08] MEDS: Vitamin D 1000 IU Tab GT SCH (10:17)
[2020-03-08] MEDS: Heparin 5000 units/ml inj SUBQ SCH ×2 (10:19→20:40)
[2020-03-08 12:00] VITALS: BP 155/99
--- NOTE | 2020-03-08 12:45 | Diagnostic Imaging Report ---
Indication: Shortness of breath Technique: One view of the chest Comparison: 03/06/2020 Findings: Left basilar opacity is unchanged. The heart remains borderline enlarged. Right lung pleural space, left upper lung remain clear. Tracheostomy again demonstrated Impression: Unchanged left basilar likely infiltrate and pleural fluid, over 2 days
--- NOTE | 2020-03-08 13:52 | NUR ---
CASE MANAGEMENT: REVIEW SI: PNA . UTI . SEPSIS T 100.4 HR 108 RR 20 BP 155/99 SAT 98% MECH VENT FIO2 40 WBC 11.9 CARBON DIOXIDE 37 IS: RIFAXIMIN GT QHS KEPPRA GT Q12HR HEPARIN SUBQ Q12HR ZOSYN IV Q8HR VANCOMYCIN IV Q8HR STEP DOWN UNIT STATUS DCP: PATIENT IS FROM [facility]
--- NOTE | 2020-03-08 15:27 | Cardiology Report ---
APPROVED REPORT EXAM: Two-dimensional and M-mode echocardiogram with Doppler and color Doppler. INDICATION OTHER M-Mode DIMENSIONS IVSd0.7 (0.7-1.1cm)Left Atrium (MM)2.2 (1.6-4.0cm) LVDd2.2 (3.5-5.6cm)Aortic Root3.8 (2.0-3.7cm) PWd1.1 (0.7-1.1cm)Aortic Cusp Exc.1.8 (1.5-2.0cm) IVSs0.8 cm LVDs1.5 (2.5-4.0cm) PWs1.0 cm Other Information Quality : Poor <Conclusion> Technically limited & difficult study due to poor acoustical windows & pts resistance. Normal left ventricular chamber size, systolic function and wall motion to extent visualized. Left ventricular ejection fraction estimated to be [id number] %. Anterior Echo-free space, may be due to pericardial fat or effusion. Calcification of aortic valve with adequate cusp excursion. Thickened mitral valve leaflets with normal excursion. Mitral annulus and aortic root calcification. Pulmonic valve not well visualized. Trace mitral regurgitation. Trace tricuspid regurgitation. IVC measured at 1.5 cm without physiologic collapse suggestive of increased RA pressure.
[2020-03-08 16:00] VITALS: BP 149/100
--- NOTE | 2020-03-08 18:03 | NUR ---
INSURANCE CLINICALS/REVIEW FAXED TO [facility] [phone]
--- NOTE | 2020-03-08 19:00 | NUR ---
NURSE NOTES: pt report received from AIYANA GHOSH. pt remains stable. pt obtunded neuro wilcox, easily aroused by light sounds. pt is trach vented sating 99% O2, no acute resp distress noted. pt is on environmental monitoring specialist showing NSR, no abnormalities cardiac wilcox. pt bed is low, locked, armed, call light within reach bed rails up times 3. will follow plan of care. Addendum: 03/09/20 at 0544 by PARISH AMAYA RN NURSE NOTES: pt report received from AIYANA GHOSH. pt remains stable. pt alert and oriented times 2 neuro wilcox able to shake yes or no to simple questions. easily aroused by light sounds. pt is trach vented sating 99% O2, no acute resp distress noted. pt is on environmental monitoring specialist showing NSR, no abnormalities cardiac wilcox. pt bed is low, locked, armed, call light within reach bed rails up times 3. will follow plan of care.
--- NOTE | 2020-03-08 19:10 | NUR ---
HAND-OFF: Report given to .CANDICE GHOSH.
[2020-03-08 20:00] VITALS: BP 152/93
--- NOTE | 2020-03-08 21:30 | NUR ---
NURSE NOTES: spoke to doctor Fox in person. doctor Fox wanted to know pts most current Covid 19 result, WBC, BUN, and Creat. no new orders
--- NOTE | 2020-03-08 21:34 | General Progress Note ---
Subjective Constitutional: Reports: no symptoms HEENT: Reports: no symptoms Cardiovascular: Reports: no symptoms Respiratory: Reports: no symptoms Gastrointestinal/Abdominal: Reports: no symptoms Genitourinary: Reports: no symptoms Neurologic/Psychiatric: Reports: no symptoms Allergies: Coded Allergies: MILK (Verified Allergy, Unknown, 08/16/18) Objective Last 24 Hour Vital Signs Date Time Temp Pulse Resp B/P (MAP) Pulse Ox O2 Delivery O2 Flow Rate FiO2 03/08/20 19:30 102 15 40 03/08/20 18:14 149/100 03/08/20 16:00 Mechanical Ventilator 03/08/20 16:00 40 03/08/20 16:00 99.0 109 18 149/100 (116) 96 03/08/20 16:00 101 03/08/20 14:45 106 18 40 03/08/20 12:31 155/99 03/08/20 12:00 40 03/08/20 12:00 100.0 108 18 155/99 (117) 98 03/08/20 12:00 100 03/08/20 12:00 Mechanical Ventilator 03/08/20 10:56 107 17 40 03/08/20 10:46 100.0 03/08/20 10:18 108 154/85 03/08/20 08:00 40 03/08/20 08:00 100.4 103 20 154/85 (108) 98 03/08/20 08:00 Mechanical Ventilator 03/08/20 08:00 108 03/08/20 07:16 105 17 40 03/08/20 05:55 146/89 03/08/20 04:00 40 03/08/20 04:00 98.4 93 13 146/89 (108) 96 03/08/20 04:00 Mechanical Ventilator 03/08/20 04:00 90 03/08/20 02:56 94 15 40 03/08/20 00:00 Mechanical Ventilator 03/08/20 00:00 98.8 97 13 135/98 (110) 97 03/08/20 00:00 135/98 03/08/20 00:00 40 03/08/20 00:00 95 03/07/20 22:57 90 14 40 Intake and Output 03/07/20 03/08/20 19:00 07:00 Intake Total 640 ml 110 ml Output Total 650 ml 500 ml Balance -10 ml -390 ml Intake Free Water 90 ml IV Total 55 ml Tube Feeding 495 ml 110 ml Output Urine Total 650 ml 500 ml # Voids 2 Laboratory Tests 03/08/20 03:15: White Blood Count 11.9H, Red Blood Count 4.62, Hemoglobin 14.0, Hematocrit 42.4, Mean Corpuscular Volume 92, Mean Corpuscular Hemoglobin 30.3, Mean Corpuscular Hemoglobin Concent 33.1, Red Cell Distribution Width 12.7, Platelet Count 356, Mean Platelet Volume 6.3L, Neutrophils (%) (Auto) 60.3, Lymphocytes (%) (Auto) 26.3, Monocytes (%) (Auto) 8.7, Eosinophils (%) (Auto) 1.7, Basophils (%) (Auto) 3.0H, Sodium Level 142, Potassium Level 3.9, Chloride Level 99, Carbon Dioxide Level 37H, Anion Gap 6, Blood Urea Nitrogen 15, Creatinine 0.5L, Estimat Glomerular Filtration Rate > 60, Glucose Level 180H, Calcium Level 9.4, Total Bilirubin 0.3, Aspartate Amino Transf (AST/SGOT) 8L, Alanine Aminotransferase (ALT/SGPT) 26, Alkaline Phosphatase 90, Total Protein 7.8, Albumin 3.1L, Globulin 4.7, Albumin/Globulin Ratio 0.7L Height (Feet): 5 Height (Inches): 3.00 Weight (Pounds): 168 General Appearance: WD/WN, no apparent distress, alert EENT: normal ENT inspection Neck: non-tender, supple Cardiovascular: normal rate, regular rhythm, regularly irregular, no JVD Respiratory/Chest: lungs clear, normal breath sounds, no respiratory distress, no accessory muscle use Abdomen: normal bowel sounds, non tender, soft, no organomegaly, no mass Extremities: non-tender Neurologic: alert, responsive Assessment/Plan Status Narrative Patient is awake alert febrile and hemodynamically stable she denies any new symptom she appears comfortable she tolerated antibiotic Patient biological response revealed a WBC dropped from 14,000-11,002 rapid COVID-19 tests are negative the PCR test is still pending Repeat laboratory tests will be done in a.m. Karissa Turcios MD, MD Mar 08, 2020 21:33
[2020-03-09] VITALS: BP 143/90
--- NOTE | 2020-03-09 02:30 | NUR ---
NURSE NOTES: pt turned, repositioned cleaned. vital signs assessed and are stable. pt resting comfortably in bed. no acute distress noted.
[2020-03-09 04:00] VITALS: BP 143/81
[2020-03-09] MEDS: Vancomycin 1 GM in D5W 275 ML IVPB SCH (04:21)
[2020-03-09 04:59] LABS: BASOPHILS % (AUTO) 1.3 % (0.0-2.0); EOSINOPHILS % (AUTO) 1.6 % (0.0-3.0); HEMATOCRIT 41.1 % (37.0-47.0); HEMOGLOBIN 13.5 G/DL (12.0-16.0); LYMPHOCYTES % (AUTO) 19.5 % (20.0-45.0); MEAN CORPUSCULAR VOLUME 92 FL (80-99); MONOCYTES % (AUTO) 5.9 % (1.0-10.0); NEUTROPHILS % (AUTO) 71.7 % (45.0-75.0); PLATELET COUNT 364 K/UL (150-450); RED BLOOD COUNT 4.45 M/UL (4.20-5.40); RED CELL DISTRIBUTION WIDTH 12.2 % (11.6-14.8); WHITE BLOOD COUNT 15.2 K/UL (4.8-10.8)
[2020-03-09] MEDS: HydrALAZINE 10mg Tab GT SCH ×3 (05:32→17:18)
[2020-03-09] MEDS: Piperacillin/Tazobactam 3.375 GM in NS 110 ML IVPB SCH ×2 (05:32→16:05)
--- NOTE | 2020-03-09 05:32 | NUR ---
NURSE NOTES: zosyn IV to be given after Vanco IV.
--- NOTE | 2020-03-09 07:07 | Hematology/Onc Progress Note ---
Assessment/Plan Assessment/Plan Assessment/Plan # Leukocytosis with likely due to uti/bacteremia --> has not received steriods --> trend 12-->13-->11-->15 --> smear reviewed, no major abnml noted --> on abx as per id zosyn/vanc # Anemia of chronic disease due to underlying chronic medical issues, multifactorial --> Anemia workup only if hgb <10 --> No evidence of hemolysis is noted, peripheral smear has been reviewed. --> Hgb goal >7. Transfuse prn. 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 Greatly appreciate consultation! Subjective Constitutional: Denies: no symptoms, chills, fever, malaise, weakness, other Cardiovascular: Denies: no symptoms, chest pain, edema, irregular heart rate, lightheadedness, palpitations, syncope, other Gastrointestinal/Abdominal: Denies: no symptoms, abdomen distended, abdominal pain, black stools, tarry stools, blood in stool, constipated, diarrhea, diffi culty swallowing, nausea, poor appetite, poor fluid intake, rectal bleeding, vomiting, other Genitourinary: Denies: no symptoms, burning, discharge, frequency, flank pain, hematuria, incontinence, pain, urgency, other Neurologic/Psychiatric: Denies: no symptoms, anxiety, depressed, emotional problems, headache, numbness, paresthesia, pre-existing deficit, seizure, tingling, tremors, weakness, other Endocrine: Denies: no symptoms, excessive sweating, flushing, intolerance to cold, intolerance to heat, increased hunger, increased thirst, increased urine, unexplained weight gain, unexplained weight loss, other Hematologic/Lymphatic: Denies: no symptoms, anemia, easy bleeding, easy bruising, adenopathy, other Allergies: Coded Allergies: MILK (Verified Allergy, Unknown, 08/16/18) Subjective 03/09 obtunded, no major changes, dw rn, labs noted Objective Objective Current Medications Medications (Trade) Dose Ordered Sig/Marzena Route PRN Reason Start Time Stop Time Status Last Admin Dose Admin Acetaminophen (Tylenol) 650 mg Q4H PRN GT Temp >100.5 03/08/20 00:45 04/07/20 00:44 03/08/20 10:16 Albuterol Sulfate (Proventil) 2.5 mg Q4H PRN HHN Shortness of Breath 03/06/20 06:00 03/11/20 05:59 Amlodipine Besylate (Norvasc) 5 mg DAILY GT 03/06/20 09:00 04/05/20 08:59 03/08/20 10:18 Artificial Tears (Akwa-Tears) 2 drop Q6H PRN BOTH EYES Dry Eyes 03/06/20 06:00 04/05/20 05:59 Atorvastatin Calcium (Lipitor) 10 mg BEDTIME GT 03/06/20 21:00 06/04/20 20:59 03/08/20 20:40 Docusate Sodium (Colace) 100 mg BID PRN GT Constipation 03/08/20 00:45 04/07/20 00:44 Famotidine (Pepcid) 20 mg TWICE A DAY GT 03/06/20 09:00 06/04/20 08:59 03/08/20 18:14 Heparin Sodium (Porcine) (Heparin 5000 units/ml) 5,000 units EVERY 12 HOURS SUBQ 03/06/20 09:00 04/20/20 08:59 03/08/20 20:40 Hydralazine HCl (Apresoline) 10 mg EVERY 6 HOURS GT 03/06/20 06:00 06/04/20 05:59 03/09/20 05:32 Ibuprofen (Advil) 400 mg Q6H PRN ORAL Moderate Pain (Pain Scale 4-6) 03/06/20 06:30 04/05/20 06:29 03/07/20 16:49 Lactulose (Cephulac) 20 gm EVERY 6 HOURS PRN GT Constipation 03/08/20 00:30 04/07/20 00:29 Levetiracetam (Keppra) 500 mg Q12HR GT 03/06/20 09:00 04/05/20 08:59 03/08/20 20:40 Magnesium Hydroxide (Mom) 30 ml BID PRN GT Constipation 10/7/20 00:45 04/07/20 00:44 Piperacillin Sod/ Tazobactam Sod 3.375 gm/Sodium Chloride 110 ml @ 27.5 mls/hr EVERY 8 HOURS IVPB 03/08/20 06:00 03/15/20 05:59 03/09/20 05:32 Polyethylene Glycol (Miralax) 17 gm DAILY PRN GT Constipation 03/08/20 00:30 04/07/20 00:29 Rifaximin (Xifaxan) 550 mg TWICE A DAY ORAL 03/06/20 09:00 03/13/20 08:59 03/08/20 18:14 Tramadol HCl (Ultram) 50 mg Q8H PRN ORAL Severe Pain (Pain Scale 7-10) 03/06/20 06:00 03/13/20 05:59 Vancomycin HCl 1 gm/Dextrose 275 ml @ 183.708 mls/hr Q8HR@0400,1200,2000 IVPB 03/08/20 04:00 03/13/20 03:59 03/09/20 04:21 Vitamin D (Vitamin D) 5,000 intlu DAILY GT 03/07/20 09:00 04/06/20 08:59 03/08/20 10:17 Last 24 Hour Vital Signs Date Time Temp Pulse Resp B/P (MAP) Pulse Ox O2 Delivery O2 Flow Rate FiO2 03/09/20 05:32 118/81 03/09/20 04:00 40 03/09/20 04:00 98.2 93 19 143/81 (101) 95 03/09/20 04:00 Mechanical Ventilator 03/09/20 03:38 101 03/09/20 03:28 99 16 40 03/09/20 00:00 99.3 102 19 143/90 (107) 96 03/09/20 00:00 Mechanical Ventilator 03/08/20 23:31 96 03/08/20 23:30 98 18 40 03/08/20 23:16 115/83 03/08/20 20:00 40 03/08/20 20:00 99.5 105 18 152/93 (112) 96 03/08/20 20:00 Mechanical Ventilator 03/08/20 19:30 102 15 40 03/08/20 18:14 149/100 03/08/20 16:00 Mechanical Ventilator 03/08/20 16:00 40 03/08/20 16:00 99.0 109 18 149/100 (116) 96 03/08/20 16:00 101 03/08/20 14:45 106 18 40 03/08/20 12:31 155/99 03/08/20 12:00 40 03/08/20 12:00 100.0 108 18 155/99 (117) 98 03/08/20 12:00 100 03/08/20 12:00 Mechanical Ventilator 03/08/20 10:56 107 17 40 03/08/20 10:46 100.0 03/08/20 10:18 108 154/85 03/08/20 08:00 40 03/08/20 08:00 100.4 103 20 154/85 (108) 98 03/08/20 08:00 Mechanical Ventilator 03/08/20 08:00 108 03/08/20 07:16 105 17 40 03/08/20 05:55 146/89 03/08/20 04:00 40 03/08/20 04:00 98.4 93 13 146/89 (108) 96 03/08/20 04:00 Mechanical Ventilator 03/08/20 04:00 90 03/08/20 02:56 94 15 40 03/08/20 00:00 Mechanical Ventilator 03/08/20 00:00 98.8 97 13 135/98 (110) 97 03/08/20 00:00 135/98 03/08/20 00:00 40 03/08/20 00:00 95 03/07/20 22:57 90 14 40 03/07/20 20:00 98.2 95 13 147/88 (107) 98 03/07/20 20:00 Mechanical Ventilator 03/07/20 20:00 40 03/07/20 19:42 100 03/07/20 19:10 105 18 40 03/07/20 17:31 144/90 03/07/20 17:19 100.2 03/07/20 16:00 40 03/07/20 16:00 100.2 110 11 144/90 (108) 100 03/07/20 16:00 112 03/07/20 16:00 Mechanical Ventilator 03/07/20 15:36 78 20 40 03/07/20 12:53 146/98 03/07/20 12:00 40 03/07/20 12:00 Mechanical Ventilator 03/07/20 12:00 110 03/07/20 12:00 99.5 111 19 146/98 (114) 98 03/07/20 11:16 110 17 40 03/07/20 09:33 108 144/87 03/07/20 08:00 110 03/07/20 08:00 Mechanical Ventilator 03/07/20 08:00 99.1 102 12 148/96 (113) 99 03/07/20 08:00 40 03/07/20 07:28 108 17 40 Intake and Output 03/08/20 03/09/20 18:59 06:59 Intake Total 1387.416 ml 1416.208 ml Balance 1387.416 ml 1416.208 ml Intake Free Water 250 ml 100 ml IV Total 477.416 ml 596.208 ml Tube Feeding 660 ml 720 ml # Voids 2 Labs Test 03/06/20 08:10 03/08/20 03:15 03/09/20 03:15 White Blood Count 14.5 K/UL (4.8-10.8) 11.9 K/UL (4.8-10.8) 15.2 K/UL (4.8-10.8) Red Blood Count 4.25 M/UL (4.20-5.40) 4.62 M/UL (4.20-5.40) 4.45 M/UL (4.20-5.40) Hemoglobin 12.9 G/DL (12.0-16.0) 14.0 G/DL (12.0-16.0) 13.5 G/DL (12.0-16.0) Hematocrit 39.7 % (37.0-47.0) 42.4 % (37.0-47.0) 41.1 % (37.0-47.0) Mean Corpuscular Volume 93 FL (80-99) 92 FL (80-99) 92 FL (80-99) Mean Corpuscular Hemoglobin 30.5 PG (27.0-31.0) 30.3 PG (27.0-31.0) 30.4 PG (27.0-31.0) Mean Corpuscular Hemoglobin Concent 32.6 G/DL (32.0-36.0) 33.1 G/DL (32.0-36.0) 32.9 G/DL (32.0-36.0) Red Cell Distribution Width 13.1 % (11.6-14.8) 12.7 % (11.6-14.8) 12.2 % (11.6-14.8) Platelet Count 345 K/UL (150-450) 356 K/UL (150-450) 364 K/UL (150-450) Mean Platelet Volume 6.3 FL (6.5-10.1) 6.3 FL (6.5-10.1) 6.0 FL (6.5-10.1) Neutrophils (%) (Auto) 72.3 % (45.0-75.0) 60.3 % (45.0-75.0) 71.7 % (45.0-75.0) Lymphocytes (%) (Auto) 19.6 % (20.0-45.0) 26.3 % (20.0-45.0) 19.5 % (20.0-45.0) Monocytes (%) (Auto) 5.4 % (1.0-10.0) 8.7 % (1.0-10.0) 5.9 % (1.0-10.0) Eosinophils (%) (Auto) 1.2 % (0.0-3.0) 1.7 % (0.0-3.0) 1.6 % (0.0-3.0) Basophils (%) (Auto) 1.6 % (0.0-2.0) 3.0 % (0.0-2.0) 1.3 % (0.0-2.0) Sodium Level 141 MMOL/L (136-145) 142 MMOL/L (136-145) Potassium Level 4.4 MMOL/L (3.5-5.1) 3.9 MMOL/L (3.5-5.1) Chloride Level 104 MMOL/L (98-107) 99 MMOL/L (98-107) Carbon Dioxide Level 33 MMOL/L (21-32) 37 MMOL/L (21-32) Anion Gap 4 mmol/L (5-15) 6 mmol/L (5-15) Blood Urea Nitrogen 13 mg/dL (7-18) 15 mg/dL (7-18) Creatinine 0.5 MG/DL (0.55-1.30) 0.5 MG/DL (0.55-1.30) Estimat Glomerular Filtration Rate > 60 mL/min (>60) > 60 mL/min (>60) Glucose Level 125 MG/DL (74-106) 180 MG/DL (74-106) Hemoglobin A1c 7.2 % (4.3-6.0) Lactic Acid Level 2.20 mmol/L (0.4-2.0) Calcium Level 8.7 MG/DL (8.5-10.1) 9.4 MG/DL (8.5-10.1) Total Bilirubin 0.3 MG/DL (0.2-1.0) 0.3 MG/DL (0.2-1.0) Direct Bilirubin < 0.1 MG/DL (0.0-0.3) Aspartate Amino Transf (AST/SGOT) 12 U/L (15-37) 8 U/L (15-37) Alanine Aminotransferase (ALT/SGPT) 33 U/L (12-78) 26 U/L (12-78) Alkaline Phosphatase 84 U/L (46-116) 90 U/L (46-116) Ammonia 43 umol/L (11-32) Total Protein 7.1 G/DL (6.4-8.2) 7.8 G/DL (6.4-8.2) Albumin 2.9 G/DL (3.4-5.0) 3.1 G/DL (3.4-5.0) Globulin 4.7 g/dL Albumin/Globulin Ratio 0.7 (1.0-2.7) Height (Feet): 5 Height (Inches): 3.00 Weight (Pounds): 168 Objective PE HEENT: Pupils were round, equal, and reactive to light. Sclerae was white. . ENT, mucous membranes were not dehydrated. NECK: Supple. There was no goiter. No mass. ++ trach LUNGS: Clear with decreased breath sounds in both bases HEART: There was normal S1 and normal S2. ABDOMEN: Soft. Nontender without organomegaly. ++ peg EXTREMITIES: No cyanosis, no clubbing, and no edema NEURO: obtunded Asael Raman MD Mar 09, 2020 07:07
--- NOTE | 2020-03-09 07:20 | NUR ---
NURSE HAND-OFF REPORT: Important Events on Shift:[NA] Patient Status: [STABLE] Diet: [TUBE FEEDING PER DOCTOR ORDER] Pending Orders: [NA] Pending Results/Labs:[NA] Pending MD notification:[NA] Latest Vital Signs: Temperature 98.2 , Pulse 107 , B/P 118 /81 , Respiratory Rate 13 , O2 SAT 95 , Mechanical Ventilator, O2 Flow Rate 40.0 . Vital Sign Comment: [STABLE] EKG Rhythm: Sinus Tachycardia Rhythm change?: N MD Notified?: - MD Response: Latest Schmidt Fall Score: 50 Fall Risk: High Risk Safety Measures: Call light Within Reach, Bed Alarm Zone 2, Side Rails Side Rails x3, Bed position Low and Locked. Fall Precautions: Patient Fall Education Report given to [LOGAN GHOSH].
--- NOTE | 2020-03-09 07:25 | NUR ---
NURSE NOTES: Report received from Stan Strauss RN.Pt asleep but opens eyes spontaneously with verbal command, no resp distress noted,with trach tube to vent ,ordered vent settings tolerated ,GTF Vital AF 1.2 at 60 ml/hr,pt incontinent of urine,with Pure wick in placed,skin warm and dry,IV site to LH intact ,bed lock in lowest position,will continue with plans of care.
[2020-03-09 08:00] VITALS: BP 147/105
--- NOTE | 2020-03-09 09:31 | NUR ---
RD ASSESSMENT & RECOMMENDATIONS SEE CARE ACTIVITY FOR COMPLETE ASSESSMENT DAILY ESTIMATED NEEDS: Needs based on Critical care 58kg abw 22-28 kcals/kg 5429-1635 total kcals 1.2-2 g protein/kg 70-116 g total protein 25-30 mL/kg 4264-3281 total fluid mLs NUTRITION DIAGNOSIS: Swallowing difficulty r/t respiratory status as evidenced by pt is vent dep via trach w/ PEG. CURRENT TF:VITAL AF 1.2 @ 60ml/hr x 20 hrs ENTERAL NUTRITION RECOMMENDATIONS: VITAL AF 1.2 @ 60ml/hr x 20 hrs to provide 1200ml, 1440kcal, 90g prot, 973ml free water - Rec Vital AF: pt on elemental (and soy based) formula of [employer] MACH[employer]. Per EMR, pt allergic to milk, unknown true allergy. Pt w/ good tolerance to Vital AF last admission in July 2018 without any side effects. Monitor for any signs of intolerance w/ Vital AF. It is also carb controlled (A1C 7.2). - Maintain [employer] TF run time to x20 hrs for good TF tolerance - Continue goal rate of 60ml/hr x 20 hrs -> meets 100% est kcal/prot needs - Water flush of 120ml q 4 hrs - HOB over 30 degrees ADDITIONAL RECOMMENDATIONS: 1) MONITOR FOR SIGNS OF INTOLERANCE TO FORMULA VITAL AF PT ON SOY BASED FORMULA @ SNF, PT TOLERATED VITAL AF WELL LAST ADM 2) Per SNF: HT=62" and UI=992jav (03/04/20) vs EMR wt =168lbs -> daily calibrated bedscale wt 3) Monitor lytes, replete as needed 4) NISS for BG control: A1C 7.2, elev BGs
[2020-03-09] MEDS: Vitamin D 1000 IU Tab GT SCH (09:49)
[2020-03-09] MEDS: levETIRAcetam 500mg/5ml Liquid GT SCH ×2 (09:50→21:36)
[2020-03-09] MEDS: Heparin 5000 units/ml inj SUBQ SCH ×2 (09:51→21:35)
[2020-03-09] MEDS: Acetaminophen 650mg/20.3ml GT PRN (09:52)
--- NOTE | 2020-03-09 09:55 | NUR ---
NURSE NOTES: Pt febrile T102,Tylenol 650 mg given /GT,will continue to monitor pt's temp.
--- NOTE | 2020-03-09 10:02 | NUR ---
CASE MANAGEMENT: REVIEW SI: PNA . UTI . SEPSIS T 102.0 HR 107 RR 15 BP 147/105 SAT 97% MECH VENT FIO2 40 WBC 15.2 UA: PENDING IS: RIFAXIMIN GT QHS KEPPRA GT Q12HR HEPARIN SUBQ Q12HR ZOSYN IV Q8HR VANCOMYCIN IV Q8HR STEP DOWN UNIT STATUS DCP: PATIENT IS FROM [facility]
[2020-03-09 12:00] VITALS: BP 159/70
--- NOTE | 2020-03-09 12:00 | NUR ---
NURSE NOTES: Oral care done ,oral /tracheal secretions suctioned PRN,pulled up and turned to sides.
--- NOTE | 2020-03-09 12:30 | NUR ---
NURSE NOTES: Pt's temp down to 100.4,pt resting in bed no distress presented.
[2020-03-09] MEDS ORDERED: Vancomycin 1.25gm/NS Premix q24h IVPB SCH (13:00)
--- NOTE | 2020-03-09 15:23 | Consultation ---
History of Present Illness General Date patient seen: Mar 09, 2020 Chief Complaint: General Complaint Present Illness HPI This is a very unfortunate 59-year-old female with hx of cardiac arrest, cerebral hemorrhage with resulting significant aphasia and R hemiplegia, chronic trach and peg, requiring full support HLD, HTN, bed bound, SNF resident presents to ED at [facility] for evaluation of increasing SOB, tracheal secretions, with pcr covid that was positive. Upon admission noted to be hypotensive, elevated lactate and leukocytosis. Surgery called to evaluate and assist with care. Patient seen, patient evaluated, chart reviewed. Imaging reviewed. Concerns for COVID trach leukocytosis sepsis Allergies: Coded Allergies: MILK (Verified Allergy, Unknown, 08/16/18) Medication History Scheduled Albuterol Sulfate* (Proair Hfa*), 2 PUFFS INH Q6H, (Reported) Amlodipine Besylate (Norvasc), 5 MG GT DAILY, (Reported) Artificial Tears (Refresh Lacri-Lube Ointment), 1 APPLIC LEFT EYE Q12HR, (Reported) Atorvastatin Calcium* (Atorvastatin Calcium*), 20 MG GT BEDTIME, (Reported) Cholecalciferol (Vitamin D3) (Vitamin D3*), 5,000 UNIT GT DAILY, (Reported) Clonidine Hcl* (Catapres*), 0.1 MG ORAL EVERY 8 HOURS, (Reported) Docusate Sodium* (Colace*), 100 MG GT DAILY, (Reported) Famotidine* (Pepcid 20mg tablet*), 20 MG GT TWICE A DAY, (Reported) Hydralazine Hcl* (Hydralazine Hcl*), 10 MG GT EVERY 6 HOURS, (Reported) Ibuprofen* (Motrin*), 400 MG ORAL Q6H, (Reported) Ipratropium [place] 0.5MG/2.5ML (Ipratropium [place] 0.5MG/2.5ML), 2 PUFF HHN Q6H, (Reported) Lactobacillus Acidophilus/Pect (Acidophilus-Pectin Tab Chew), 1 EACH GT DAILY, (Reported) Lactulose (Lactulose*), 30 ML GT QID, (Reported) Levetiracetam (Keppra), 5 ML GT Q12HR, (Reported) Multivitamin With Minerals (Multivitamins With Minerals*), 1 TAB GT DAILY, (Reported) Rifaximin* (Xifaxan*), 550 MG ORAL TWICE A DAY, (Reported) Triamcinolone Acetonide (Triamcinolone Acetonide 0.5% Cream*), 15 GM TP DAILY, (Reported) Scheduled PRN Acetaminophen* (Acetaminophen 325MG Tablet*), 650 MG ORAL Q4H PRN for PAIN/TEMP>101, (Reported) Albuterol Sulfate* (Proair Hfa*), 2 PUFFS INH Q3HR PRN for Shortness of Breath, (Reported) Dextran 70/Hypromellose (Artificial Tears Eye Drops*), 2 DROP BOTH EYES Q6HR PRN for Dry Eyes, (Reported) Ipratropium [place] 0.5MG/2.5ML (Ipratropium [place] 0.5MG/2.5ML), 2 PUFF HHN Q3HR PRN for Shortness of Breath, (Reported) Na Phos,M-B/Na Phos,Di-Ba* (Fleet Enema*), 133 ML RECTAL PRN PRN for Constipation, (Reported) Ondansetron* (Zofran*), 4 MG ORAL Q6H PRN for Nausea & Vomiting, (Reported) Polyethylene Glycol 3350* (Miralax*), 17 GM ORAL DAILY PRN for Constipation, (Reported) Tramadol Hcl* (Ultram*), 50 MG ORAL Q8HR PRN for For Pain, (Reported) Miscellaneous Medications Chlorhexidine Gluconate* (Hibiclens*), 15 ML ORAL, (Reported) Discontinued Medications Acetaminophen* (Tylenol*), 120 MG RECTAL Q4H PRN for Mild Pain/Temp > 100.5, (Reported) Discontinued Reason: Therapy completed Albuterol Sulfate* (Albuterol Sulfate Hhn*), 3 ML INH Q4H PRN for Shortness of Breath, (Reported) Discontinued Reason: Prescription changed Amino Acids/Protein Hydrolys (Pro-Stat Liquid), 30 ML GT DAILY, (Reported) Discontinued Reason: Therapy completed Amlodipine Besylate (Norvasc), 5 MG ORAL DAILY, (Reported) Discontinued Reason: Therapy completed Cephalexin* (Keflex*), 500 MG ORAL TID Discontinued Reason: Therapy completed Cran/Vitc/Mannose/Inulin/Brom (Uti-Stat Liquid), 3,875 MG GT TWICE A DAY, (Rep orted) Discontinued Reason: Therapy completed Dextran 70/Hypromellose (Artificial Tears Eye Drops*), 2 DROP BOTH EYES, (Reported) Discontinued Reason: Therapy completed Ergocalciferol (Vitamin D2)* (Vitamin D*), 50,000 UNIT GT ONCE A WEEK, (Reported) Discontinued Reason: Therapy completed Ibuprofen (Motrin), 400 MG GT Q6H PRN for For Pain, (Reported) Discontinued Reason: Therapy completed Lactulose (Lactulose*), 30 ML ORAL BID Discontinued Reason: Therapy completed Polymyxin/Trimethoprim (Polytrim Eye Drops), 2 DROP OPHTHALM THREE TIMES A DAY Discontinued Reason: Therapy completed Promethazine Hcl (Promethazine Hcl*), 5 ML GT Q6H, (Reported) Discontinued Reason: Therapy completed Patient History Limited by: medical condition History Provided By: Medical Record, PMD Healthcare decision maker Resuscitation status Advanced Directive on File Past Medical/Surgical History Past Medical/Surgical History: (1) Feeding by G-tube (2) Cardiac arrest (3) Nosocomial pneumonia (4) Anemia (5) Diarrhea (6) Abdominal pain (7) Sepsis (8) UTI (urinary tract infection) (9) Pneumonia (10) Acute on chronic respiratory failure Review of Systems All Other Systems: negative except mentioned in HPI Physical Exam General Appearance: no apparent distress, alert Lines, tubes and drains: peripheral, other HEENT: anicteric, mucous membranes moist Neck: normal inspection, tender midline, trach Respiratory/Chest: chest wall non-tender, no respiratory distress, no accessory muscle use, decreased breath sounds, on vent Cardiovascular/Chest: normal rate, regular rhythm Abdomen: soft, no organomegaly, no mass, feeding tube Genitourinary/Rectal: normal rectal exam Extremities: non-tender, slow capillary refill Skin Exam: warm/dry Neurologic: alert Last 24 Hour Vital Signs Date Time Temp Pulse Resp B/P (MAP) Pulse Ox O2 Delivery O2 Flow Rate FiO2 03/09/20 15:10 101 15 40 03/09/20 12:54 159/70 03/09/20 12:17 40 03/09/20 12:00 100.4 111 15 159/70 (99) 99 03/09/20 12:00 Mechanical Ventilator 03/09/20 11:40 111 16 40 03/09/20 10:22 100.4 03/09/20 09:52 108 147/105 03/09/20 08:00 40 03/09/20 08:00 Mechanical Ventilator 03/09/20 08:00 108 03/09/20 08:00 102.0 101 15 147/105 (119) 97 03/09/20 07:30 107 13 40 03/09/20 05:32 118/81 03/09/20 04:00 40 03/09/20 04:00 98.2 93 19 143/81 (101) 95 03/09/20 04:00 Mechanical Ventilator 03/09/20 03:38 101 03/09/20 03:28 99 16 40 03/09/20 00:00 99.3 102 19 143/90 (107) 96 03/09/20 00:00 Mechanical Ventilator 03/08/20 23:31 96 03/08/20 23:30 98 18 40 03/08/20 23:16 115/83 03/08/20 20:00 40 03/08/20 20:00 99.5 105 18 152/93 (112) 96 03/08/20 20:00 Mechanical Ventilator 03/08/20 19:30 102 15 40 03/08/20 18:14 149/100 03/08/20 16:00 Mechanical Ventilator 03/08/20 16:00 40 03/08/20 16:00 99.0 109 18 149/100 (116) 96 03/08/20 16:00 101 Intake and Output 03/08/20 03/09/20 19:00 07:00 Intake Total 1392.416 ml 1356.208 ml Balance 1392.416 ml 1356.208 ml Intake Free Water 250 ml 100 ml IV Total 477.416 ml 596.208 ml Tube Feeding 665 ml 660 ml # Voids 2 Laboratory Tests Test 03/09/20 03:15 03/09/20 10:53 White Blood Count 15.2 K/UL (4.8-10.8) H Red Blood Count 4.45 M/UL (4.20-5.40) Hemoglobin 13.5 G/DL (12.0-16.0) Hematocrit 41.1 % (37.0-47.0) Mean Corpuscular Volume 92 FL (80-99) Mean Corpuscular Hemoglobin 30.4 PG (27.0-31.0) Mean Corpuscular Hemoglobin Concent 32.9 G/DL (32.0-36.0) Red Cell Distribution Width 12.2 % (11.6-14.8) Platelet Count 364 K/UL (150-450) Mean Platelet Volume 6.0 FL (6.5-10.1) L Neutrophils (%) (Auto) 71.7 % (45.0-75.0) Lymphocytes (%) (Auto) 19.5 % (20.0-45.0) L Monocytes (%) (Auto) 5.9 % (1.0-10.0) Eosinophils (%) (Auto) 1.6 % (0.0-3.0) Basophils (%) (Auto) 1.3 % (0.0-2.0) Vancomycin Level Trough 13.4 ug/mL (5.0-12.0) H Height (Feet): 5 Height (Inches): 3.00 Weight (Pounds): 168 Medications Current Medications Medications (Trade) Dose Ordered Sig/Marzena Route PRN Reason Start Time Stop Time Status Last Admin Dose Admin Acetaminophen (Tylenol) 650 mg Q4H PRN GT Temp >100.5 03/08/20 00:45 04/07/20 00:44 03/09/20 09:52 Albuterol Sulfate (Proventil) 2.5 mg Q4H PRN HHN Shortness of Breath 03/06/20 06:00 03/11/20 05:59 Amlodipine Besylate (Norvasc) 5 mg DAILY GT 03/06/20 09:00 04/05/20 08:59 03/09/20 09:52 Artificial Tears (Akwa-Tears) 2 drop Q6H PRN BOTH EYES Dry Eyes 03/06/20 06:00 04/05/20 05:59 Atorvastatin Calcium (Lipitor) 10 mg BEDTIME GT 03/06/20 21:00 06/04/20 20:59 03/08/20 20:40 Docusate Sodium (Colace) 100 mg BID PRN GT Constipation 03/08/20 00:45 04/07/20 00:44 Famotidine (Pepcid) 20 mg TWICE A DAY GT 03/06/20 09:00 06/04/20 08:59 03/09/20 09:50 Heparin Sodium (Porcine) (Heparin 5000 units/ml) 5,000 units EVERY 12 HOURS SUBQ 03/06/20 09:00 04/20/20 08:59 03/09/20 09:51 Hydralazine HCl (Apresoline) 10 mg EVERY 6 HOURS GT 03/06/20 06:00 06/04/20 05:59 03/09/20 12:54 Ibuprofen (Advil) 400 mg Q6H PRN ORAL Moderate Pain (Pain Scale 4-6) 03/06/20 06:30 04/05/20 06:29 03/07/20 16:49 Lactulose (Cephulac) 20 gm EVERY 6 HOURS PRN GT Constipation 03/08/20 00:30 04/07/20 00:29 Levetiracetam (Keppra) 500 mg Q12HR GT 03/06/20 09:00 04/05/20 08:59 03/09/20 09:50 Magnesium Hydroxide (Mom) 30 ml BID PRN GT Constipation 03/08/20 00:45 04/07/20 00:44 Piperacillin Sod/ Tazobactam Sod 3.375 gm/Sodium Chloride 110 ml @ 27.5 mls/hr EVERY 8 HOURS IVPB 03/08/20 06:00 03/15/20 05:59 03/09/20 05:32 Polyethylene Glycol (Miralax) 17 gm DAILY PRN GT Constipation 03/08/20 00:30 04/07/20 00:29 Rifaximin (Xifaxan) 550 mg TWICE A DAY ORAL 03/06/20 09:00 03/13/20 08:59 03/09/20 09:49 Tramadol HCl (Ultram) 50 mg Q8H PRN ORAL Severe Pain (Pain Scale 7-10) 03/06/20 06:00 03/13/20 05:59 Vancomycin HCl (Vanco pharmacy to dose) 1 ea DAILY PRN MISC . 03/09/20 10:30 04/08/20 10:29 Vancomycin HCl 1.25 gm/Sodium Chloride 275 ml @ 183.333 mls/hr Q8H IVPB 03/09/20 21:00 03/14/20 20:59 Vitamin D (Vitamin D) 5,000 intlu DAILY GT 03/07/20 09:00 04/06/20 08:59 03/09/20 09:49 Assessment/Plan Problem List: (1) Sepsis Assessment & Plan: 51-year-old female multi medical committees care dependent trach PEG who has a leukocytosis lactic acidosis sepsis admitted further care and management tracheal secretions identified trachea stable. COVID has been negative on both PCR and standard test. On antibiotics microbiology noted. No acute surgical intervention indicated recommended at this time. The trache ostomy stable and unlikely etiology and she is ventilating well throughout. Secretions likely from a potential pneumonia but the chest x-ray was identified. Nutritional optimization continue tube feeds will monitor and continue to follow with recommendations ICD Codes: A41.9 - Sepsis, unspecified organism SNOMED: 78081977 Qualifiers: Qualified Codes: A41.9 - Sepsis, unspecified organism (2) UTI (urinary tract infection) Assessment & Plan: abx as per pcp ICD Codes: N39.0 - Urinary tract infection, site not specified SNOMED: 45441599 Qualifiers: Qualified Codes: N39.0 - Urinary tract infection, site not specified (3) Pneumonia ICD Codes: J18.9 - Pneumonia, unspecified organism SNOMED: 670364922 Qualifiers: Qualified Codes: J18.9 - Pneumonia, unspecified organism (4) Cardiac arrest ICD Codes: I46.9 - Cardiac arrest, cause unspecified SNOMED: 609573888 (5) Anemia ICD Codes: D64.9 - Anemia, unspecified SNOMED: 767448012 (6) Diarrhea ICD Codes: R19.7 - Diarrhea, unspecified SNOMED: 42944309 (7) Abdominal pain ICD Codes: R10.9 - Unspecified abdominal pain SNOMED: 63168279 (8) Nosocomial pneumonia ICD Codes: J18.9 - Pneumonia, unspecified organism; Y95 - Nosocomial condition SNOMED: 412913031 (9) Feeding by G-tube Assessment & Plan: tube okay cont feeds supplements meds okay DAILY ESTIMATED NEEDS: Needs based on Critical care 58kg abw 22-28 kcals/kg 6800-8173 total kcals 1.2-2 g protein/kg 70-116 g total protein 25-30 mL/kg 4887-0087 total fluid mLs NUTRITION DIAGNOSIS: Swallowing difficulty r/t respiratory status as evidenced by pt is vent dep via trach w/ PEG. CURRENT TF:VITAL AF 1.2 @ 60ml/hr x 20 hrs ENTERAL NUTRITION RECOMMENDATIONS: VITAL AF 1.2 @ 60ml/hr x 20 hrs to provide 1200ml, 1440kcal, 90g prot, 973ml free water - Rec Vital AF: pt on elemental (and soy based) formula of [employer]. Per EMR, pt allergic to milk, unknown true allergy. Pt w/ good tolerance to Vital AF last admission in July 2018 without any side effects. Monitor for any signs of intolerance w/ Vital AF. It is also carb controlled (A1C 7.2). - Maintain [employer] TF run time to x20 hrs for good TF tolerance - Continue goal rate of 60ml/hr x 20 hrs -> meets 100% est kcal/prot needs - Water flush of 120ml q 4 hrs - HOB over 30 degrees ADDITIONAL RECOMMENDATIONS: 1) MONITOR FOR SIGNS OF INTOLERANCE TO FORMULA VITAL AF PT ON SOY BASED FORMULA @ SNF, PT TOLERATED VITAL AF WELL LAST ADM 2) Per SNF: HT=62" and XE=004bui (03/04/20) vs EMR wt =168lbs -> daily calibrated bedscale wt 3) Monitor lytes, replete as needed 4) NISS for BG control: A1C 7.2, elev BGs ICD Codes: Z93.1 - Gastrostomy status SNOMED: 268607351, 085567202, 196069022 (10) Acute on chronic respiratory failure ICD Codes: J96.20 - Acute and chronic respiratory failure, unspecified whether with hypoxia or hypercapnia SNOMED: 39850294 Qualifiers: Qualified Codes: J96.20 - Acute and chronic respiratory failure, unspecified whether with hypoxia or hypercapnia Saman Bruce Mar 09, 2020 15:23
[2020-03-09 16:00] VITALS: BP 137/95
--- NOTE | 2020-03-09 17:10 | NUR ---
NURSE NOTES: Pt constipated,no BM x3 days,Lactulose given,will continue to monitor pt.
--- NOTE | 2020-03-09 19:13 | NUR ---
RESPIRATORY NOTE: Received pt on VOL SIMV 10, 500VT, PS 10, PEEP +5, 40%. Pt is trach-dependent w/ a Cuffed, Portex 7 tube. Pt alert/awake, follows commands. B/S merlin. rhonchi, sxn small amounts of thin/frothy, fernando-yellow secretions. Vent plugged into red outlet, ambubag at bedside. Pt resting comfortably, in no apparent distress at this time. Will continue plan of care.
--- NOTE | 2020-03-09 19:40 | NUR ---
NURSE NOTES: Received patient from AUGIE Marrero under the care of Dr. Fox for the admitting dx. of SOB, and Covid (+) status. Patient noted with allergies to milk and full code status. On continuing isolation for Covid (+) status, although patient has tested negative for Covid on 03/07/20 and 03/09/20. Will have to follow up with MD regarding D/C of isolation precaution. Fall, aspiration and seizure precaution observed and maintained at all times. Room safety check and ventilation safety check performed. No apparent distress or discomfort noted on patient. Will continue with current plan of care.
--- NOTE | 2020-03-09 19:45 | NUR ---
NURSE HAND-OFF REPORT: Important Events on Shift:N/A Patient Status: Stable Diet: Vital AF 1.2 at 40 ml/hr Pending Orders: N/A Pending Results/Labs:N/A Pending MD notification:N/A Latest Vital Signs: Temperature 99.1 , Pulse 118 , B/P 137 /95 , Respiratory Rate 20 , O2 SAT 97 , Mechanical Ventilator, O2 Flow Rate 40.0 . Vital Sign Comment: Stable EKG Rhythm: Sinus Tachycardia Rhythm change?: N MD Notified?: - MD Response: Latest Schmidt Fall Score: 50 Fall Risk: High Risk Safety Measures: Call light Within Reach, Bed Alarm Zone 2, Side Rails Side Rails x3, Bed position Low and Locked. Fall Precautions: Patient Fall Education Report given to Antwon Scott RN..
[2020-03-09 20:00] VITALS: BP 135/82
--- NOTE | 2020-03-09 20:00 | NUR ---
NURSE NOTES: Patient noted awake and alert with eyes tracking. Able to follow commands but is non-verbal. Noted to have ST on the color television console monitor, but otherwise benign. Has portex 7 trach size with vent settings of SIMV/IMV-10, TV-500, FiO2-40%, PEEP-5 PS-10. Patient appears to be tolerating vent settings well as saturation is noted to be 97% with no apparent signs of distress or discomfort at this time. GT is flushing well, with residuals noted to be 10cc. On Vital AF 1.2 at 60cc/hr and tolerating well. Patient is incontinent with purewick present and intact. L hand 22ga noted with MD orders TKO. IV site benign and no redness, irritation, or infiltration noted at this time. Will continue with current plan of care.
--- NOTE | 2020-03-09 20:03 | General Progress Note ---
Subjective Constitutional: Reports: no symptoms HEENT: Reports: no symptoms Cardiovascular: Reports: no symptoms Respiratory: Reports: no symptoms Gastrointestinal/Abdominal: Reports: no symptoms Genitourinary: Reports: no symptoms Neurologic/Psychiatric: Reports: no symptoms Hematologic/Lymphatic: Reports: no symptoms Allergies: Coded Allergies: MILK (Verified Allergy, Unknown, 08/16/18) Objective Last 24 Hour Vital Signs Date Time Temp Pulse Resp B/P (MAP) Pulse Ox O2 Delivery O2 Flow Rate FiO2 03/09/20 19:09 118 20 40 03/09/20 17:18 137/95 03/09/20 16:00 106 03/09/20 16:00 40 03/09/20 16:00 Mechanical Ventilator 03/09/20 16:00 99.1 103 14 137/95 (109) 97 03/09/20 15:10 101 15 40 03/09/20 12:54 159/70 03/09/20 12:17 40 03/09/20 12:00 100.4 111 15 159/70 (99) 99 03/09/20 12:00 107 03/09/20 12:00 Mechanical Ventilator 03/09/20 11:40 111 16 40 03/09/20 10:22 100.4 03/09/20 09:52 108 147/105 03/09/20 08:00 40 03/09/20 08:00 Mechanical Ventilator 03/09/20 08:00 108 03/09/20 08:00 102.0 101 15 147/105 (119) 97 03/09/20 07:30 107 13 40 03/09/20 05:32 118/81 03/09/20 04:00 40 03/09/20 04:00 98.2 93 19 143/81 (101) 95 03/09/20 04:00 Mechanical Ventilator 03/09/20 03:38 101 03/09/20 03:28 99 16 40 03/09/20 00:00 99.3 102 19 143/90 (107) 96 03/09/20 00:00 Mechanical Ventilator 03/08/20 23:31 96 03/08/20 23:30 98 18 40 03/08/20 23:16 115/83 03/08/20 20:00 40 03/08/20 20:00 99.5 105 18 152/93 (112) 96 03/08/20 20:00 Mechanical Ventilator Intake and Output 03/08/20 03/09/20 19:00 07:00 Intake Total 1392.416 ml 1416.208 ml Balance 1392.416 ml 1416.208 ml Intake Free Water 250 ml 100 ml IV Total 477.416 ml 596.208 ml Tube Feeding 665 ml 720 ml # Voids 2 Laboratory Tests 03/09/20 03:15: White Blood Count 15.2H, Red Blood Count 4.45, Hemoglobin 13.5, Hematocrit 41.1, Mean Corpuscular Volume 92, Mean Corpuscular Hemoglobin 30.4, Mean Corpuscular Hemoglobin Concent 32.9, Red Cell Distribution Width 12.2, Platelet Count 364, Mean Platelet Volume 6.0L, Neutrophils (%) (Auto) 71.7, Lymphocytes (%) (Auto) 19.5L, Monocytes (%) (Auto) 5.9, Eosinophils (%) (Auto) 1.6, Basophils (%) (Auto) 1.3 03/09/20 10:53: Vancomycin Level Trough 13.4H Height (Feet): 5 Height (Inches): 3.00 Weight (Pounds): 168 General Appearance: WD/WN, no apparent distress, alert EENT: normal ENT inspection Neck: supple Cardiovascular: normal rate, regular rhythm, no gallop/murmur, no JVD Respiratory/Chest: normal breath sounds, no respiratory distress, no accessory muscle use, rhonchi - left Abdomen: normal bowel sounds, non tender, soft, no organomegaly, no mass Extremities: non-tender Neurologic: alert, oriented x 3 Assessment/Plan Status Narrative Patient is awake with low-grade fever and tachycardia and appears to be energetic. There is no cough or sputum production Chest x-ray today revealed the persistence of left lower lung infiltrate and small pleural effusion Patient developed today leukocytosis to 15,000. She has been on vancomycin 1 g IV piggyback every 12 and Zosyn 3.375 g IV piggyback every 6 however she developed fever tachycardia and abnormal chest x-ray A second PCR COVID-19 test is negative as well Patient Zosyn will be DC'd sputum culture was sent and the results are unav ailable patient will be started on meropenem 1 g IV piggyback every 8 repeat laboratory tests and chest x-ray will be done in a.m. Karissa Turcios MD, MD Mar 09, 2020 20:03
[2020-03-09] MEDS: Vancomycin 1.25 GM in NS 275 ML IVPB SCH (21:00)
[2020-03-09] MEDS ORDERED: Vancomycin 1.25 GM in NS 275 ML IVPB SCH (21:00)
--- NOTE | 2020-03-09 22:00 | NUR ---
NURSE NOTES: Patient appears to be tolerating vent settings well as saturation is noted to be 99% with no apparent signs of distress or discomfort at this time. FLACC score of 0/10 noted. L hand 22ga noted with MD orders TKO. IV site benign and no redness, irritation, or infiltration noted at this time. Turned and repositioned according to turn schedule. Will continue with current plan of care.
[2020-03-09] MEDS: Meropenem 1 GM in NS 55 ML IVPB SCH (23:00)
[2020-03-10] VITALS: BP 118/78
--- NOTE | 2020-03-10 | NUR ---
NURSE NOTES: Noted IV site on L hand dislodged, discontinued site and patient reinserted with new peripheral sites. R wrist 20ga TKO, and L forearm 20ga saline locked. New IV sites benign and no redness, irritation, or infiltration noted at this time. Patient appears to be tolerating vent settings well as saturation is noted to be 99% with no apparent signs of distress or discomfort at this time. FLACC score of 0/10 noted. Turned and repositioned according to turn schedule. Will continue with current plan of care.
[2020-03-10] MEDS: HydrALAZINE 10mg Tab GT SCH ×4 (00:21→17:23)
[2020-03-10 04:00] VITALS: BP 152/89
--- NOTE | 2020-03-10 04:00 | NUR ---
NURSE NOTES: Patien noted awake and watching TV. Responsive to simple commands. FLACC score of 0/10 noted. No apparent distress or discomfort noted. IV sites benign and no redness, irritation, or infiltration noted at this time. Patient appears to be tolerating vent settings well as saturation is noted to be 98%. Turned and repositioned according to turn schedule. Bed locked and alarm armed. Safety checks performed and maintained at all times. Will continue with current plan of care.
[2020-03-10] MEDS: Vancomycin 1.25 GM in NS 275 ML IVPB SCH ×3 (04:44→20:38)
[2020-03-10] MEDS: Acetaminophen 650mg/20.3ml GT PRN (05:34)
--- NOTE | 2020-03-10 06:00 | NUR ---
Reported PCR Covid results to Dr. Fox, with orders to D/C current Covid isolation. Noted and carried out. Patient is asleep but arousable. No apparent distress or discomfort noted. Tolerating vent settings well. Will continue to monitor.
[2020-03-10 06:15] LABS: BASOPHILS % (AUTO) 2.2 % (0.0-2.0); EOSINOPHILS % (AUTO) 1.2 % (0.0-3.0); HEMATOCRIT 39.4 % (37.0-47.0); HEMOGLOBIN 12.9 G/DL (12.0-16.0); LYMPHOCYTES % (AUTO) 14.6 % (20.0-45.0); MEAN CORPUSCULAR VOLUME 93 FL (80-99); MONOCYTES % (AUTO) 6.8 % (1.0-10.0); NEUTROPHILS % (AUTO) 75.2 % (45.0-75.0); PLATELET COUNT 381 K/UL (150-450); RED BLOOD COUNT 4.26 M/UL (4.20-5.40); RED CELL DISTRIBUTION WIDTH 12.5 % (11.6-14.8); WHITE BLOOD COUNT 15.8 K/UL (4.8-10.8)
[2020-03-10] MEDS: Meropenem 1 GM in NS 55 ML IVPB SCH ×3 (06:25→22:06)
[2020-03-10 07:28] LABS: APPEARANCE,URINE SLIGHTLY CLOUDY; BILIRUBIN, URINE NEGATIVE (NEGATIVE); GLUCOSE, URINE (UA) NEGATIVE (NEGATIVE); KETONES,URINE NEGATIVE (NEGATIVE); LEUKOCYTE ESTERASE ,URINE 3+ (NEGATIVE); NITRITE,URINE NEGATIVE (NEGATIVE); PH,URINE 6.5 (4.5-8.0); PROTEIN,URINE 3+ (NEGATIVE); UROBILINOGEN,URINE NORMAL MG/DL (0.0-1.0)
[2020-03-10 07:29] LABS: COLOR,URINE YELLOW
--- NOTE | 2020-03-10 07:30 | NUR ---
NURSE HAND-OFF REPORT: Important Events on Shift: Digoxin started, Covid isolation D/C by Dr. Fox. Patient Status: Stable Diet: GT feeding Pending Orders: Pending Results/Labs: Pending MD notification: Latest Vital Signs: Temperature 98.8 , Pulse 99 , B/P 143 /94 , Respiratory Rate 18 , O2 SAT 98 , Mechanical Ventilator, O2 Flow Rate 40.0 . Vital Sign Comment: EKG Rhythm: Sinus Tachycardia Rhythm change?: N MD Notified?: - MD Response: Latest Schmidt Fall Score: 55 Fall Risk: High Risk Safety Measures: Call light Within Reach, Bed Alarm Zone 2, Side Rails Side Rails x3, Bed position Low and Locked. Fall Precautions: Patient Fall Education Report given to AUGIE Clay.
--- NOTE | 2020-03-10 08:04 | Hematology/Onc Progress Note ---
Assessment/Plan Assessment/Plan Assessment/Plan # Leukocytosis with likely due to uti/bacteremia --> has not received steriods --> trend 12-->13-->11-->15-->16 --> smear reviewed, no major abnml noted --> on abx as per id zosyn/vanc->vanc/bartolome # Anemia of chronic disease due to underlying chronic medical issues, multifactorial --> Anemia workup only if hgb <10 --> No evidence of hemolysis is noted, peripheral smear has been reviewed. --> Hgb goal >7. Transfuse prn. 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 Greatly appreciate consultation! Subjective Constitutional: Denies: no symptoms, chills, fever, malaise, weakness, other HEENT: Denies: no symptoms, eye pain, blurred vision, tearing, double vision, ear pain, ear discharge, nose pain, nose congestion, throat pain, throat swellin g, mouth pain, mouth swelling, other Allergies: Coded Allergies: MILK (Verified Allergy, Unknown, 08/16/18) All Systems: reviewed and negative except above Subjective 03/09 obtunded, no major changes, michaela rn, labs noted 03/10 tolerating vent, with no bleeding, michaela rn, no major changes Objective Objective Current Medications Medications (Trade) Dose Ordered Sig/Marzena Route PRN Reason Start Time Stop Time Status Last Admin Dose Admin Acetaminophen (Tylenol) 650 mg Q4H PRN GT Temp >100.5 03/08/20 00:45 04/07/20 00:44 03/10/20 05:34 Albuterol Sulfate (Proventil) 2.5 mg Q4H PRN HHN Shortness of Breath 03/06/20 06:00 03/11/20 05:59 Amlodipine Besylate (Norvasc) 5 mg DAILY GT 03/06/20 09:00 04/05/20 08:59 03/09/20 09:52 Artificial Tears (Akwa-Tears) 2 drop Q6H PRN BOTH EYES Dry Eyes 03/06/20 06:00 04/05/20 05:59 Atorvastatin Calcium (Lipitor) 10 mg BEDTIME GT 03/06/20 21:00 06/04/20 20:59 03/09/20 21:35 Docusate Sodium (Colace) 100 mg BID PRN GT Constipation 03/08/20 00:45 04/07/20 00:44 Famotidine (Pepcid) 20 mg TWICE A DAY GT 03/06/20 09:00 06/04/20 08:59 03/09/20 17:12 Heparin Sodium (Porcine) (Heparin 5000 units/ml) 5,000 units EVERY 12 HOURS SUBQ 03/06/20 09:00 04/20/20 08:59 03/09/20 21:35 Hydralazine HCl (Apresoline) 10 mg EVERY 6 HOURS GT 03/06/20 06:00 06/04/20 05:59 03/10/20 05:34 Ibuprofen (Advil) 400 mg Q6H PRN ORAL Moderate Pain (Pain Scale 4-6) 03/06/20 06:30 04/05/20 06:29 03/07/20 16:49 Lactulose (Cephulac) 20 gm EVERY 6 HOURS PRN GT Constipation 03/08/20 00:30 04/07/20 00:29 03/09/20 17:18 Levetiracetam (Keppra) 500 mg Q12HR GT 03/06/20 09:00 04/05/20 08:59 03/09/20 21:36 Magnesium Hydroxide (Mom) 30 ml BID PRN GT Constipation 03/08/20 00:45 04/07/20 00:44 Meropenem 1 gm/ Sodium Chloride 55 ml @ 110 mls/hr Q8HR IVPB 03/09/20 22:00 03/14/20 21:59 03/10/20 06:25 Polyethylene Glycol (Miralax) 17 gm DAILY PRN GT Constipation 03/08/20 00:30 04/07/20 00:29 Rifaximin (Xifaxan) 550 mg TWICE A DAY ORAL 03/06/20 09:00 03/13/20 08:59 03/09/20 17:18 Tramadol HCl (Ultram) 50 mg Q8H PRN ORAL Severe Pain (Pain Scale 7-10) 03/06/20 06:00 03/13/20 05:59 Vancomycin HCl (Vanco pharmacy to dose) 1 ea DAILY PRN MISC . 03/09/20 10:30 04/08/20 10:29 Vancomycin HCl 1.25 gm/Sodium Chloride 275 ml @ 183.333 mls/hr Q8H IVPB 03/09/20 21:00 03/14/20 20:59 03/10/20 04:44 Vitamin D (Vitamin D) 5,000 intlu DAILY GT 03/07/20 09:00 04/06/20 08:59 03/09/20 09:49 Last 24 Hour Vital Signs Date Time Temp Pulse Resp B/P (MAP) Pulse Ox O2 Delivery O2 Flow Rate FiO2 03/10/20 07:05 100 21 40 03/10/20 06:04 98.4 03/10/20 05:34 152/89 03/10/20 04:00 99.5 97 13 152/89 (110) 98 03/10/20 04:00 93 03/10/20 04:00 40 03/10/20 04:00 Mechanical Ventilator 03/10/20 03:15 99 16 40 03/10/20 00:21 135/82 03/10/20 00:00 101 03/10/20 00:00 Mechanical Ventilator 03/10/20 00:00 99.4 104 14 118/78 (91) 98 03/09/20 23:43 113 17 40 03/09/20 20:00 40 03/09/20 20:00 99.8 117 19 135/82 (99) 95 03/09/20 20:00 Mechanical Ventilator 03/09/20 19:32 120 03/09/20 19:09 118 20 40 03/09/20 17:18 137/95 03/09/20 16:00 106 03/09/20 16:00 40 03/09/20 16:00 Mechanical Ventilator 03/09/20 16:00 99.1 103 14 137/95 (109) 97 03/09/20 15:10 101 15 40 03/09/20 12:54 159/70 03/09/20 12:17 40 10/8/20 12:00 100.4 111 15 159/70 (99) 99 03/09/20 12:00 107 03/09/20 12:00 Mechanical Ventilator 03/09/20 11:40 111 16 40 03/09/20 10:22 100.4 03/09/20 09:52 108 147/105 03/09/20 08:00 40 03/09/20 08:00 Mechanical Ventilator 03/09/20 08:00 108 03/09/20 08:00 102.0 101 15 147/105 (119) 97 03/09/20 07:30 107 13 40 03/09/20 05:32 118/81 03/09/20 04:00 40 03/09/20 04:00 98.2 93 19 143/81 (101) 95 03/09/20 04:00 Mechanical Ventilator 03/09/20 03:38 101 03/09/20 03:28 99 16 40 03/09/20 00:00 99.3 102 19 143/90 (107) 96 03/09/20 00:00 Mechanical Ventilator 03/08/20 23:31 96 03/08/20 23:30 98 18 40 03/08/20 23:16 115/83 03/08/20 20:00 40 03/08/20 20:00 99.5 105 18 152/93 (112) 96 03/08/20 20:00 Mechanical Ventilator 03/08/20 19:30 102 15 40 03/08/20 18:14 149/100 03/08/20 16:00 Mechanical Ventilator 03/08/20 16:00 40 03/08/20 16:00 99.0 109 18 149/100 (116) 96 03/08/20 16:00 101 03/08/20 14:45 106 18 40 03/08/20 12:31 155/99 03/08/20 12:00 40 03/08/20 12:00 100.0 108 18 155/99 (117) 98 03/08/20 12:00 100 03/08/20 12:00 Mechanical Ventilator 03/08/20 10:56 107 17 40 03/08/20 10:46 100.0 03/08/20 10:18 108 154/85 Intake and Output 03/09/20 03/10/20 19:00 07:00 Intake Total 1000 ml 810 ml Balance 1000 ml 810 ml Intake Free Water 100 ml 150 ml Tube Feeding 720 ml 660 ml Other 180 ml # Voids 2 # Bowel Movements 1 Labs Test 03/08/20 03:15 03/09/20 03:15 03/09/20 10:53 03/10/20 04:00 White Blood Count 11.9 K/UL (4.8-10.8) 15.2 K/UL (4.8-10.8) Red Blood Count 4.62 M/UL (4.20-5.40) 4.45 M/UL (4.20-5.40) Hemoglobin 14.0 G/DL (12.0-16.0) 13.5 G/DL (12.0-16.0) Hematocrit 42.4 % (37.0-47.0) 41.1 % (37.0-47.0) Mean Corpuscular Volume 92 FL (80-99) 92 FL (80-99) Mean Corpuscular Hemoglobin 30.3 PG (27.0-31.0) 30.4 PG (27.0-31.0) Mean Corpuscular Hemoglobin Concent 33.1 G/DL (32.0-36.0) 32.9 G/DL (32.0-36.0) Red Cell Distribution Width 12.7 % (11.6-14.8) 12.2 % (11.6-14.8) Platelet Count 356 K/UL (150-450) 364 K/UL (150-450) Mean Platelet Volume 6.3 FL (6.5-10.1) 6.0 FL (6.5-10.1) Neutrophils (%) (Auto) 60.3 % (45.0-75.0) 71.7 % (45.0-75.0) Lymphocytes (%) (Auto) 26.3 % (20.0-45.0) 19.5 % (20.0-45.0) Monocytes (%) (Auto) 8.7 % (1.0-10.0) 5.9 % (1.0-10.0) Eosinophils (%) (Auto) 1.7 % (0.0-3.0) 1.6 % (0.0-3.0) Basophils (%) (Auto) 3.0 % (0.0-2.0) 1.3 % (0.0-2.0) Sodium Level 142 MMOL/L (136-145) Potassium Level 3.9 MMOL/L (3.5-5.1) Chloride Level 99 MMOL/L (98-107) Carbon Dioxide Level 37 MMOL/L (21-32) Anion Gap 6 mmol/L (5-15) Blood Urea Nitrogen 15 mg/dL (7-18) Creatinine 0.5 MG/DL (0.55-1.30) Estimat Glomerular Filtration Rate > 60 mL/min (>60) Glucose Level 180 MG/DL (74-106) Calcium Level 9.4 MG/DL (8.5-10.1) Total Bilirubin 0.3 MG/DL (0.2-1.0) Aspartate Amino Transf (AST/SGOT) 8 U/L (15-37) Alanine Aminotransferase (ALT/SGPT) 26 U/L (12-78) Alkaline Phosphatase 90 U/L (46-116) Total Protein 7.8 G/DL (6.4-8.2) Albumin 3.1 G/DL (3.4-5.0) Globulin 4.7 g/dL Albumin/Globulin Ratio 0.7 (1.0-2.7) Vancomycin Level Trough 13.4 ug/mL (5.0-12.0) Urine Color Yellow Urine Appearance Slightly cloudy Urine pH 6.5 (4.5-8.0) Urine Specific [place] 1.020 (1.005-1.035) Urine Protein 3+ (NEGATIVE) Urine Glucose (UA) Negative (NEGATIVE) Urine Ketones Negative (NEGATIVE) Urine Blood 4+ (NEGATIVE) Urine Nitrite Negative (NEGATIVE) Urine Bilirubin Negative (NEGATIVE) Urine Urobilinogen Normal MG/DL (0.0-1.0) Urine Leukocyte Esterase 3+ (NEGATIVE) Urine RBC 15-20 /HPF (0 - 2) Urine WBC 10-15 /HPF (0 - 2) Urine Squamous Epithelial Cells Few /LPF (NONE/OCC) Urine Bacteria Few /HPF (NONE) Test 03/10/20 04:25 White Blood Count 15.8 K/UL (4.8-10.8) Red Blood Count 4.26 M/UL (4.20-5.40) Hemoglobin 12.9 G/DL (12.0-16.0) Hematocrit 39.4 % (37.0-47.0) Mean Corpuscular Volume 93 FL (80-99) Mean Corpuscular Hemoglobin 30.2 PG (27.0-31.0) Mean Corpuscular Hemoglobin Concent 32.6 G/DL (32.0-36.0) Red Cell Distribution Width 12.5 % (11.6-14.8) Platelet Count 381 K/UL (150-450) Mean Platelet Volume 5.7 FL (6.5-10.1) Neutrophils (%) (Auto) 75.2 % (45.0-75.0) Lymphocytes (%) (Auto) 14.6 % (20.0-45.0) Monocytes (%) (Auto) 6.8 % (1.0-10.0) Eosinophils (%) (Auto) 1.2 % (0.0-3.0) Basophils (%) (Auto) 2.2 % (0.0-2.0) Height (Feet): 5 Height (Inches): 3.00 Weight (Pounds): 168 Objective PE HEENT: Pupils were round, equal, and reactive to light. Sclerae was white. . ENT, mucous membranes were not dehydrated. NECK: Supple. There was no goiter. No mass. ++ trach/vent LUNGS: Clear with decreased breath sounds in both bases HEART: There was normal S1 and normal S2. ABDOMEN: Soft. Nontender without organomegaly. ++ peg EXTREMITIES: No cyanosis, no clubbing, and no edema NEURO: obtunded Asael Raman MD Mar 10, 2020 08:04
--- NOTE | 2020-03-10 08:11 | NUR ---
NURSE NOTES: Pt in bed alert Ox1 but maybe more since she is non-verbal, she is able to make some needs known, pt has purewick however was soiled and changed during morning assessment, pt denies pain, WBC count went up however new ABX treatment was started, no s/s of distress or sob noted. IVs are intact.
[2020-03-10 08:32] VITALS: BP 134/78
--- NOTE | 2020-03-10 08:53 | NUR ---
CASE MANAGEMENT: REVIEW 03/10/2020 SI:SEPSIS. A/C RESP FAILURE. VS: T 99.7 HR 100 RR 21 B/P 152/89 SATS 98% ON MECH VENT FIO2 40 LABS: WBC 15.8 CO2 37 CR 0.5 GLU 180 AST 8 IS:HYDRALAZINE GT Q6H RIFAXIMIN PO BID LIPITOR PO QHS KEPPRA GGT Q12H VANCO IV Q8H MEROPENEM IV Q8H SDU DCP: [facility] PLAN OF CARE: URINE CX DC COVID ISO
[2020-03-10] MEDS: Vitamin D 1000 IU Tab GT SCH (08:55)
[2020-03-10] MEDS: levETIRAcetam 500mg/5ml Liquid GT SCH ×2 (08:56→20:42)
[2020-03-10] MEDS: Heparin 5000 units/ml inj SUBQ SCH ×2 (08:58→20:43)
--- NOTE | 2020-03-10 10:26 | Surgery Progress Note ---
Surgery Progress Note Subjective Additional Comments afebrile, HD stable improving tolerating diet Objective Last 24 Hour Vital Signs Date Time Temp Pulse Resp B/P (MAP) Pulse Ox O2 Delivery O2 Flow Rate FiO2 03/10/20 08:56 86 134/78 03/10/20 08:32 99.7 86 14 134/78 (96) 99 03/10/20 08:04 40 03/10/20 08:04 Mechanical Ventilator 03/10/20 07:47 93 03/10/20 07:05 100 21 40 03/10/20 06:04 98.4 03/10/20 05:34 152/89 03/10/20 04:00 99.5 97 13 152/89 (110) 98 03/10/20 04:00 93 03/10/20 04:00 40 03/10/20 04:00 Mechanical Ventilator 03/10/20 03:15 99 16 40 03/10/20 00:21 135/82 03/10/20 00:00 101 03/10/20 00:00 Mechanical Ventilator 03/10/20 00:00 99.4 104 14 118/78 (91) 98 03/09/20 23:43 113 17 40 03/09/20 20:00 40 03/09/20 20:00 99.8 117 19 135/82 (99) 95 03/09/20 20:00 Mechanical Ventilator 03/09/20 19:32 120 03/09/20 19:09 118 20 40 03/09/20 17:18 137/95 03/09/20 16:00 106 03/09/20 16:00 40 03/09/20 16:00 Mechanical Ventilator 03/09/20 16:00 99.1 103 14 137/95 (109) 97 03/09/20 15:10 101 15 40 03/09/20 12:54 159/70 03/09/20 12:17 40 03/09/20 12:00 100.4 111 15 159/70 (99) 99 03/09/20 12:00 107 03/09/20 12:00 Mechanical Ventilator 03/09/20 11:40 111 16 40 I&O Intake and Output 03/09/20 03/10/20 19:00 07:00 Intake Total 1000 ml 810 ml Balance 1000 ml 810 ml Intake Free Water 100 ml 150 ml Tube Feeding 720 ml 660 ml Other 180 ml # Voids 2 # Bowel Movements 1 Dressing: saturated, other Wound: other Cardiovascular: RSR Respiratory: decreased breath sounds Abdomen: soft, non-tender, present bowel sounds Extremities: no tenderness, no cyanosis Laboratory Tests Test 03/09/20 10:53 03/10/20 04:00 03/10/20 04:25 Vancomycin Level Trough 13.4 ug/mL (5.0-12.0) H Urine Color Yellow Urine Appearance Slightly cloudy Urine pH 6.5 (4.5-8.0) Urine Specific [place] 1.020 (1.005-1.035) Urine Protein 3+ (NEGATIVE) H Urine Glucose (UA) Negative (NEGATIVE) Urine Ketones Negative (NEGATIVE) Urine Blood 4+ (NEGATIVE) H Urine Nitrite Negative (NEGATIVE) Urine Bilirubin Negative (NEGATIVE) Urine Urobilinogen Normal MG/DL (0.0-1.0) Urine Leukocyte Esterase 3+ (NEGATIVE) H Urine RBC 15-20 /HPF (0 - 2) H Urine WBC 10-15 /HPF (0 - 2) H Urine Squamous Epithelial Cells Few /LPF (NONE/OCC) Urine Bacteria Few /HPF (NONE) White Blood Count 15.8 K/UL (4.8-10.8) H Red Blood Count 4.26 M/UL (4.20-5.40) Hemoglobin 12.9 G/DL (12.0-16.0) Hematocrit 39.4 % (37.0-47.0) Mean Corpuscular Volume 93 FL (80-99) Mean Corpuscular Hemoglobin 30.2 PG (27.0-31.0) Mean Corpuscular Hemoglobin Concent 32.6 G/DL (32.0-36.0) Red Cell Distribution Width 12.5 % (11.6-14.8) Platelet Count 381 K/UL (150-450) Mean Platelet Volume 5.7 FL (6.5-10.1) L Neutrophils (%) (Auto) 75.2 % (45.0-75.0) H Lymphocytes (%) (Auto) 14.6 % (20.0-45.0) L Monocytes (%) (Auto) 6.8 % (1.0-10.0) Eosinophils (%) (Auto) 1.2 % (0.0-3.0) Basophils (%) (Auto) 2.2 % (0.0-2.0) H Plan Problems: (1) Sepsis Assessment & Plan: 51-year-old female multi medical committees care dependent trach PEG who has a leukocytosis lactic acidosis sepsis admitted further care and management tracheal secretions identified trachea stable. COVID has been negative on both PCR and standard test. On antibiotics microbiology noted. No acute surgical intervention indicated recommended at this time. The tracheostomy stable and unlikely etiology and she is ventilating well throughout. Secretions likely from a potential pneumonia but the chest x-ray was identified. Nutritional optimization continue tube feeds will monitor and continue to follow with recommendations (2) UTI (urinary tract infection) Assessment & Plan: abx as per pcp (3) Pneumonia (4) Cardiac arrest (5) Anemia (6) Diarrhea (7) Abdominal pain (8) Nosocomial pneumonia (9) Feeding by G-tube Assessment & Plan: tube okay cont feeds supplements meds okay DAILY ESTIMATED NEEDS: Needs based on Critical care 58kg abw 22-28 kcals/kg [id number] total kcals 1.2-2 g protein/kg 70-116 g total protein 25-30 mL/kg 2150-4371 total fluid mLs NUTRITION DIAGNOSIS: Swallowing difficulty r/t respiratory status as evidenced by pt is vent dep via trach w/ PEG. CURRENT TF:VITAL AF 1.2 @ 60ml/hr x 20 hrs ENTERAL NUTRITION RECOMMENDATIONS: VITAL AF 1.2 @ 60ml/hr x 20 hrs to provide 1200ml, 1440kcal, 90g prot, 973ml free water - Rec Vital AF: pt on elemental (and soy based) formula of Vivonex NIGHT CUSTODIAN. Per EMR, pt allergic to milk, unknown true allergy. Pt w/ good tolerance to Vital AF last admission in July 2018 without any side effects. Monitor for any signs of intolerance w/ Vital AF. It is also carb controlled (A1C 7.2). - Maintain NIGHT CUSTODIAN TF run time to x20 hrs for good TF tolerance - Continue goal rate of 60ml/hr x 20 hrs -> meets 100% est kcal/prot needs - Water flush of 120ml q 4 hrs - HOB over 30 degrees ADDITIONAL RECOMMENDATIONS: 1) MONITOR FOR SIGNS OF INTOLERANCE TO FORMULA VITAL AF PT ON SOY BASED FORMULA @ SNF, PT TOLERATED VITAL AF WELL LAST ADM 2) Per SNF: HT=62" and DY=095fqy (03/04/20) vs EMR wt =168lbs -> daily calibrated bedscale wt 3) Monitor lytes, replete as needed 4) NISS for BG control: A1C 7.2, elev BGs (10) Acute on chronic respiratory failure Saman Bruce Mar 10, 2020 10:26
[2020-03-10 12:16] VITALS: BP 120/70
--- NOTE | 2020-03-10 13:15 | General Progress Note ---
Subjective Constitutional: Reports: no symptoms HEENT: Reports: no symptoms Cardiovascular: Reports: no symptoms Respiratory: Reports: no symptoms Gastrointestinal/Abdominal: Reports: no symptoms Genitourinary: Reports: no symptoms Neurologic/Psychiatric: Reports: no symptoms Hematologic/Lymphatic: Reports: no symptoms Allergies: Coded Allergies: MILK (Verified Allergy, Unknown, 08/16/18) Objective Last 24 Hour Vital Signs Date Time Temp Pulse Resp B/P (MAP) Pulse Ox O2 Delivery O2 Flow Rate FiO2 03/10/20 12:24 120/70 03/10/20 12:16 97.7 92 14 120/70 (87) 96 03/10/20 12:15 40 03/10/20 11:27 Mechanical Ventilator 03/10/20 11:06 81 16 40 03/10/20 08:56 86 134/78 03/10/20 08:32 99.7 86 14 134/78 (96) 99 03/10/20 08:04 40 03/10/20 08:04 Mechanical Ventilator 03/10/20 07:47 93 03/10/20 07:05 100 21 40 03/10/20 06:04 98.4 03/10/20 05:34 152/89 03/10/20 04:00 99.5 97 13 152/89 (110) 98 03/10/20 04:00 93 03/10/20 04:00 40 03/10/20 04:00 Mechanical Ventilator 03/10/20 03:15 99 16 40 03/10/20 00:21 135/82 03/10/20 00:00 101 03/10/20 00:00 Mechanical Ventilator 03/10/20 00:00 99.4 104 14 118/78 (91) 98 03/09/20 23:43 113 17 40 03/09/20 20:00 40 03/09/20 20:00 99.8 117 19 135/82 (99) 95 03/09/20 20:00 Mechanical Ventilator 03/09/20 19:32 120 03/09/20 19:09 118 20 40 03/09/20 17:18 137/95 03/09/20 16:00 106 03/09/20 16:00 40 03/09/20 16:00 Mechanical Ventilator 03/09/20 16:00 99.1 103 14 137/95 (109) 97 10/8/20 15:10 101 15 40 Intake and Output 03/09/20 03/10/20 19:00 07:00 Intake Total 1000 ml 810 ml Balance 1000 ml 810 ml Intake Free Water 100 ml 150 ml Tube Feeding 720 ml 660 ml Other 180 ml # Voids 2 # Bowel Movements 1 Laboratory Tests 03/10/20 04:00: Urine Color Yellow, Urine Appearance Slightly cloudy, Urine pH 6.5, Urine Specific [place] 1.020, Urine Protein 3+H, Urine Glucose (UA) Negative, Urine K etones Negative, Urine Blood 4+H, Urine Nitrite Negative, Urine Bilirubin Negative, Urine Urobilinogen Normal, Urine Leukocyte Esterase 3+H, Urine RBC 15- 20H, Urine WBC 10-15H, Urine Squamous Epithelial Cells Few, Urine Bacteria Few 03/10/20 04:25: White Blood Count 15.8H, Red Blood Count 4.26, Hemoglobin 12.9, Hematocrit 39.4, Mean Corpuscular Volume 93, Mean Corpuscular Hemoglobin 30.2, Mean Corpuscular Hemoglobin Concent 32.6, Red Cell Distribution Width 12.5, Platelet Count 381, Mean Platelet Volume 5.7L, Neutrophils (%) (Auto) 75.2H, Lymphocytes (%) (Auto) 14.6L, Monocytes (%) (Auto) 6.8, Eosinophils (%) (Auto) 1.2, Basophils (%) (Auto) 2.2H 03/10/20 12:15: Vancomycin Level Trough 15.4H Height (Feet): 5 Height (Inches): 3.00 Weight (Pounds): 168 General Appearance: WD/WN, no apparent distress, alert, confused EENT: normal ENT inspection Neck: supple Cardiovascular: normal rate, regular rhythm, no gallop/murmur, no JVD Respiratory/Chest: lungs clear, normal breath sounds, no respiratory distress, no accessory muscle use, rhonchi - bilaterally Abdomen: normal bowel sounds, non tender, soft, no organomegaly, no mass Neurologic: alert, responsive, depressed affect Assessment/Plan Status Narrative Patient is awake alert now febrile with less fever and less tachycardia than yesterday. She started on meropenem 1 g IV piggyback q. 8 and infectious d isease loan consultant was called to assist in the management of this case. Both the rapid test and the PCR test of stool COVID-19 are negative and patient was treated for maceration Once the current leukocytosis and pneumonia are controlled patient will be re turned back to the extended care facility to complete antibiotic treatment in the extended care facility Karissa Turcios MD, MD Mar 10, 2020 13:15
--- NOTE | 2020-03-10 13:51 | Consultation ---
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 Upon admission, patient was noted to be hypotensive, leukocytosis and lactic acidosis. Allergies: Coded Allergies: MILK (Verified Allergy, Unknown, 08/16/18) Medication History Scheduled Albuterol Sulfate* (Proair Hfa*), 2 PUFFS INH Q6H, (Reported) Amlodipine Besylate (Norvasc), 5 MG GT DAILY, (Reported) Artificial Tears (Refresh Lacri-Lube Ointment), 1 APPLIC LEFT EYE Q12HR, (Reported) Atorvastatin Calcium* (Atorvastatin Calcium*), 20 MG GT BEDTIME, (Reported) Cholecalciferol (Vitamin D3) (Vitamin D3*), 5,000 UNIT GT DAILY, (Reported) Clonidine Hcl* (Catapres*), 0.1 MG ORAL EVERY 8 HOURS, (Reported) Docusate Sodium* (Colace*), 100 MG GT DAILY, (Reported) Famotidine* (Pepcid 20mg tablet*), 20 MG GT TWICE A DAY, (Reported) Hydralazine Hcl* (Hydralazine Hcl*), 10 MG GT EVERY 6 HOURS, (Reported) Ibuprofen* (Motrin*), 400 MG ORAL Q6H, (Reported) Ipratropium [place] 0.5MG/2.5ML (Ipratropium [place] 0.5MG/2.5ML), 2 PUFF HHN Q6H, (Reported) Lactobacillus Acidophilus/Pect (Acidophilus-Pectin Tab Chew), 1 EACH GT DAILY, (Reported) Lactulose (Lactulose*), 30 ML GT QID, (Reported) Levetiracetam (Keppra), 5 ML GT Q12HR, (Reported) Multivitamin With Minerals (Multivitamins With Minerals*), 1 TAB GT DAILY, (Reported) Rifaximin* (Xifaxan*), 550 MG ORAL TWICE A DAY, (Reported) Triamcinolone Acetonide (Triamcinolone Acetonide 0.5% Cream*), 15 GM TP DAILY, (Reported) Scheduled PRN Acetaminophen* (Acetaminophen 325MG Tablet*), 650 MG ORAL Q4H PRN for PAIN /TEMP>101, (Reported) Albuterol Sulfate* (Proair Hfa*), 2 PUFFS INH Q3HR PRN for Shortness of Breath, (Reported) Dextran 70/Hypromellose (Artificial Tears Eye Drops*), 2 DROP BOTH EYES Q6HR PRN for Dry Eyes, (Reported) Ipratropium [place] 0.5MG/2.5ML (Ipratropium [place] 0.5MG/2.5ML), 2 PUFF HHN Q3HR PRN for Shortness of Breath, (Reported) Na Phos,M-B/Na Phos,Di-Ba* (Fleet Enema*), 133 ML RECTAL PRN PRN for Constipation, (Reported) Ondansetron* (Zofran*), 4 MG ORAL Q6H PRN for Nausea & Vomiting, (Reported) Polyethylene Glycol 3350* (Miralax*), 17 GM ORAL DAILY PRN for Constipation, (Reported) Tramadol Hcl* (Ultram*), 50 MG ORAL Q8HR PRN for For Pain, (Reported) Miscellaneous Medications Chlorhexidine Gluconate* (Hibiclens*), 15 ML ORAL, (Reported) Discontinued Medications Acetaminophen* (Tylenol*), 120 MG RECTAL Q4H PRN for Mild Pain/Temp > 100.5, (Reported) Discontinued Reason: Therapy completed Albuterol Sulfate* (Albuterol Sulfate Hhn*), 3 ML INH Q4H PRN for Shortness of Breath, (Reported) Discontinued Reason: Prescription changed Amino Acids/Protein Hydrolys (Pro-Stat Liquid), 30 ML GT DAILY, (Reported) Discontinued Reason: Therapy completed Amlodipine Besylate (Norvasc), 5 MG ORAL DAILY, (Reported) Discontinued Reason: Therapy completed Cephalexin* (Keflex*), 500 MG ORAL TID Discontinued Reason: Therapy completed Cran/Vitc/Mannose/Inulin/Brom (Uti-Stat Liquid), 3,875 MG GT TWICE A DAY, (Reported) Discontinued Reason: Therapy completed Dextran 70/Hypromellose (Artificial Tears Eye Drops*), 2 DROP BOTH EYES, (Reported) Discontinued Reason: Therapy completed Ergocalciferol (Vitamin D2)* (Vitamin D*), 50,000 UNIT GT ONCE A WEEK, (Reported) Discontinued Reason: Therapy completed Ibuprofen (Motrin), 400 MG GT Q6H PRN for For Pain, (Reported) Discontinued Reason: Therapy completed Lactulose (Lactulose*), 30 ML ORAL BID Discontinued Reason: Therapy completed Polymyxin/Trimethoprim (Polytrim Eye Drops), 2 DROP OPHTHALM THREE TIMES A DAY Discontinued Reason: Therapy completed Promethazine Hcl (Promethazine Hcl*), 5 ML GT Q6H, (Reported) Discontinued Reason: Therapy completed Patient History Healthcare decision maker Resuscitation status Advanced Directive on File Patient History Narrative Pmhx: as above Shx: She is . She was born in [place]. She has been in [place] for many years. 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 Patient did not smoke, drink, or use illicit drugs Fhx: non contributory Review of Systems All Other Systems: negative except mentioned in HPI Physical Exam Physical Exam Narrative Dressing: saturated, other Wound: other Cardiovascular: RSR Respiratory: decreased breath sounds Abdomen: soft, non-tender, present bowel sounds Extremities: no tenderness, no cyanosis Last 24 Hour Vital Signs Date Time Temp Pulse Resp B/P (MAP) Pulse Ox O2 Delivery O2 Flow Rate FiO2 03/10/20 12:24 120/70 03/10/20 12:16 97.7 92 14 120/70 (87) 96 03/10/20 12:15 40 03/10/20 11:27 Mechanical Ventilator 03/10/20 11:06 81 16 40 03/10/20 08:56 86 134/78 03/10/20 08:32 99.7 86 14 134/78 (96) 99 03/10/20 08:04 40 03/10/20 08:04 Mechanical Ventilator 03/10/20 07:47 93 03/10/20 07:05 100 21 40 03/10/20 06:04 98.4 03/10/20 05:34 152/89 03/10/20 04:00 99.5 97 13 152/89 (110) 98 03/10/20 04:00 93 03/10/20 04:00 40 03/10/20 04:00 Mechanical Ventilator 03/10/20 03:15 99 16 40 03/10/20 00:21 135/82 03/10/20 00:00 101 03/10/20 00:00 Mechanical Ventilator 03/10/20 00:00 99.4 104 14 118/78 (91) 98 03/09/20 23:43 113 17 40 03/09/20 20:00 40 03/09/20 20:00 99.8 117 19 135/82 (99) 95 03/09/20 20:00 Mechanical Ventilator 03/09/20 19:32 120 03/09/20 19:09 118 20 40 03/09/20 17:18 137/95 03/09/20 16:00 106 03/09/20 16:00 40 03/09/20 16:00 Mechanical Ventilator 03/09/20 16:00 99.1 103 14 137/95 (109) 97 03/09/20 15:10 101 15 40 Intake and Output 03/09/20 03/10/20 19:00 07:00 Intake Total 1000 ml 810 ml Balance 1000 ml 810 ml Intake Free Water 100 ml 150 ml Tube Feeding 720 ml 660 ml Other 180 ml # Voids 2 # Bowel Movements 1 Laboratory Tests Test 03/10/20 04:00 03/10/20 04:25 03/10/20 12:15 Urine Color Yellow Urine Appearance Slightly cloudy Urine pH 6.5 (4.5-8.0) Urine Specific [place] 1.020 (1.005-1.035) Urine Protein 3+ (NEGATIVE) H Urine Glucose (UA) Negative (NEGATIVE) Urine Ketones Negative (NEGATIVE) Urine Blood 4+ (NEGATIVE) H Urine Nitrite Negative (NEGATIVE) Urine Bilirubin Negative (NEGATIVE) Urine Urobilinogen Normal MG/DL (0.0-1.0) Urine Leukocyte Esterase 3+ (NEGATIVE) H Urine RBC 15-20 /HPF (0 - 2) H Urine WBC 10-15 /HPF (0 - 2) H Urine Squamous Epithelial Cells Few /LPF (NONE/OCC) Urine Bacteria Few /HPF (NONE) White Blood Count 15.8 K/UL (4.8-10.8) H Red Blood Count 4.26 M/UL (4.20-5.40) Hemoglobin 12.9 G/DL (12.0-16.0) Hematocrit 39.4 % (37.0-47.0) Mean Corpuscular Volume 93 FL (80-99) Mean Corpuscular Hemoglobin 30.2 PG (27.0-31.0) Mean Corpuscular Hemoglobin Concent 32.6 G/DL (32.0-36.0) Red Cell Distribution Width 12.5 % (11.6-14.8) Platelet Count 381 K/UL (150-450) Mean Platelet Volume 5.7 FL (6.5-10.1) L Neutrophils (%) (Auto) 75.2 % (45.0-75.0) H Lymphocytes (%) (Auto) 14.6 % (20.0-45.0) L Monocytes (%) (Auto) 6.8 % (1.0-10.0) Eosinophils (%) (Auto) 1.2 % (0.0-3.0) Basophils (%) (Auto) 2.2 % (0.0-2.0) H Vancomycin Level Trough 15.4 ug/mL (5.0-12.0) H Height (Feet): 5 Height (Inches): 3.00 Weight (Pounds): 168 Medications Current Medications Medications (Trade) Dose Ordered Sig/Marzena Route PRN Reason Start Time Stop Time Status Last Admin Dose Admin Acetaminophen (Tylenol) 650 mg Q4H PRN GT Temp >100.5 03/08/20 00:45 04/07/20 00:44 03/10/20 05:34 Albuterol Sulfate (Proventil) 2.5 mg Q4H PRN HHN Shortness of Breath 03/06/20 06:00 03/11/20 05:59 Amlodipine Besylate (Norvasc) 5 mg DAILY GT 03/06/20 09:00 04/05/20 08:59 03/10/20 08:56 Artificial Tears (Akwa-Tears) 2 drop Q6H PRN BOTH EYES Dry Eyes 03/06/20 06:00 04/05/20 05:59 Atorvastatin Calcium (Lipitor) 10 mg BEDTIME GT 03/06/20 21:00 06/04/20 20:59 03/09/20 21:35 Docusate Sodium (Colace) 100 mg BID PRN GT Constipation 03/08/20 00:45 04/07/20 00:44 Famotidine (Pepcid) 20 mg TWICE A DAY GT 03/06/20 09:00 06/04/20 08:59 03/10/20 08:55 Heparin Sodium (Porcine) (Heparin 5000 units/ml) 5,000 units EVERY 12 HOURS SUBQ 03/06/20 09:00 04/20/20 08:59 03/10/20 08:58 Hydralazine HCl (Apresoline) 10 mg EVERY 6 HOURS GT 03/06/20 06:00 06/04/20 05:59 03/10/20 12:24 Ibuprofen (Advil) 400 mg Q6H PRN ORAL Moderate Pain (Pain Scale 4-6) 03/06/20 06:30 04/05/20 06:29 03/07/20 16:49 Lactulose (Cephulac) 20 gm EVERY 6 HOURS PRN GT Constipation 03/08/20 00:30 04/07/20 00:29 03/09/20 17:18 Levetiracetam (Keppra) 500 mg Q12HR GT 03/06/20 09:00 04/05/20 08:59 03/10/20 08:56 Magnesium Hydroxide (Mom) 30 ml BID PRN GT Constipation 03/08/20 00:45 04/07/20 00:44 Meropenem 1 gm/ Sodium Chloride 55 ml @ 110 mls/hr Q8HR IVPB 03/09/20 22:00 03/14/20 21:59 03/10/20 06:25 Polyethylene Glycol (Miralax) 17 gm DAILY PRN GT Constipation 03/08/20 00:30 04/07/20 00:29 Rifaximin (Xifaxan) 550 mg TWICE A DAY ORAL 03/06/20 09:00 03/13/20 08:59 03/10/20 08:56 Tramadol HCl (Ultram) 50 mg Q8H PRN ORAL Severe Pain (Pain Scale 7-10) 03/06/20 06:00 03/13/20 05:59 Vancomycin HCl (Vanco pharmacy to dose) 1 ea DAILY PRN MISC . 03/09/20 10:30 04/08/20 10:29 Vancomycin HCl 1.25 gm/Sodium Chloride 275 ml @ 183.333 mls/hr Q8H IVPB 03/09/20 21:00 03/14/20 20:59 03/10/20 12:24 Vitamin D (Vitamin D) 5,000 intlu DAILY GT 03/07/20 09:00 04/06/20 08:59 03/10/20 08:55 Assessment/Plan Assessment/Plan: Abx: IV Vancomycin 03/06- Meropenem 03/09- Zosyn 03/06-7 Ceftriaxonex 1 03/06 Azithromycin x1 03/06 Assessment: Severe Sepsis UTI -03/08 CXR: Unchanged left basilar likely infiltrate and pleural fluid, over 2 days -03/06 u/a wbc tnct, nit +, leuk +3; ucx >100k C. koseri (I macrobid; otherwise S) PNA -03/06 CXR: Retrocardiac opacity may represent the left hemidiaphragm. Staph bacteremia- likely contaminant -03/06 Bcx 06/05 S. epi, 06/05 S hominis Fever Leukocytosis, increased COVID19 (dx'ed 03/02) vs false positive -03/02 COVID PCR + at [facility]; repeat neg x3 (03/06& rapid COVID PCR neg x1, 03/07 SARS-COV2 PCR neg) Hx of PNA 08/2018 -sp cx MDR ABC (I Ceftazidime; S Amikacin), PsA (arce S); 08/24 sp cx S.marcenses (R ancef otherwise S); 08/28 S. marcescens(R ancef; otherwise S) Hx of UTI 07/2018 -08/29 u/a wbc tnct; ucx ESBL K. 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 Will continue to follow along with you. Discussed with RN ad pharmacy staff. Yeny Webb M.D. Mar 10, 2020 13:51
[2020-03-10 16:00] VITALS: BP 143/94
--- NOTE | 2020-03-10 16:25 | Cardiology Report ---
APPROVED REPORT EKG Measurement Heart [id number] HI [id number] <Conclusion> Normal sinus rhythm Anterior infarct, age undetermined Abnormal ECG
--- NOTE | 2020-03-10 17:08 | NUR ---
INSURANCE PROGRESS NOTES AND REVIEW FAXED TO [facility] PH# [phone] FAX# [phone] REVIEWS/CLINICALS
--- NOTE | 2020-03-10 18:53 | NUR ---
NURSE HAND-OFF REPORT: Important Events on Shift:Patient is still being ruled out by Md due to patient still having fevers Patient Status: Diet: Pending Orders: Pending Results/Labs: Pending MD notification: Latest Vital Signs: Temperature 98.8 , Pulse 102 , B/P 143 /94 , Respiratory Rate 14 , O2 SAT 98 , Mechanical Ventilator, O2 Flow Rate 40.0 . Vital Sign Comment: EKG Rhythm: Sinus Tachycardia Rhythm change?: N MD Notified?: - MD Response: Latest Schmidt Fall Score: 55 Fall Risk: High Risk Safety Measures: Call light Within Reach, Bed Alarm Zone 2, Side Rails Side Rails x3, Bed position Low and Locked. Fall Precautions: Patient Fall Education Report given to .
[2020-03-10 20:00] VITALS: BP 144/87
--- NOTE | 2020-03-10 20:00 | NUR ---
NURSE NOTES: Patient noted awake and alert watching TV. Able to follow commands and is on a cooperative disposition. Noted to have ST on the engine monitor, but otherwise benign. Has portex 7 trach size with vent settings of SIMV/IMV-10, TV-500, FiO2-40%, PEEP-5 PS-10. Patient appears to be tolerating vent settings well as saturation is noted to be 97% with no apparent signs of distress or discomfort at this time. GT is flushing well, with residuals noted to be 5cc. On Vital AF 1.2 at 60cc/hr and tolerating well. Patient is incontinent with purewick present and intact. R wrist 20ga noted TKO. IV site benign and no redness, irritation, or infiltration noted at this time. Will continue with current plan of care.
--- NOTE | 2020-03-10 22:00 | NUR ---
NURSE NOTES: Patient asleep but easily arousable. Appears to be tolerating vent settings well as saturation is noted to be 97% with no apparent signs of distress or discomfort at this time. FLACC score of 0/10 noted. L hand 22ga noted with MD orders TKO. IV site benign and no redness, irritation, or infiltration noted at this time. Turned and repositioned according to turn schedule. Will continue with current plan of care.
[2020-03-11] VITALS: BP 147/84
--- NOTE | 2020-03-11 | NUR ---
NURSE NOTES: Patient appears to be tolerating vent settings well as saturation is noted to be 99% with no apparent signs of distress or discomfort at this time. FLACC score of 0/10 noted. Turned and repositioned according to turn schedule. Safety check in room and ventilator performed. Will continue with current plan of care.
--- NOTE | 2020-03-11 02:00 | NUR ---
NURSE NOTES: Patient noted asleep, but easily arousable. FLACC score of 0/10 noted. No apparent distress or discomfort noted. IV sites benign and no redness, irritation, or infiltration noted at this time. Patient appears to be tolerating vent settings well as saturation is noted to be 99%. Turned and repositioned according to turn schedule. Bed locked and alarm armed. Safety checks performed and maintained at all times. Will continue with current plan of care.
[2020-03-11 04:00] VITALS: BP 137/77
--- NOTE | 2020-03-11 04:00 | NUR ---
NURSE NOTES: Patien noted asleep. FLACC score of 0/10 noted. No apparent distress or discomfort noted. Patient appears to be tolerating vent settings well as saturation is noted to be 97%. Turned and repositioned according to turn schedule. Bed locked and alarm armed. Safety checks performed and maintained at all times. Will continue with current plan of care.
[2020-03-11] MEDS: Vancomycin 1.25 GM in NS 275 ML IVPB SCH ×3 (04:41→20:52)
[2020-03-11] MEDS: HydrALAZINE 10mg Tab GT SCH ×5 (06:00→23:19)
[2020-03-11] MEDS: Meropenem 1 GM in NS 55 ML IVPB SCH ×3 (06:34→22:09)
--- NOTE | 2020-03-11 07:20 | NUR ---
NURSE HAND-OFF REPORT: Important Events on Shift: Patient Status: Stable Diet: GT feeding Pending Orders: Pending Results/Labs: Pending MD notification: Latest Vital Signs: Temperature 99.0 , Pulse 84 , B/P 137 /77 , Respiratory Rate 19 , O2 SAT 98 , Mechanical Ventilator, O2 Flow Rate 40.0 . Vital Sign Comment: EKG Rhythm: Sinus Rhythm Rhythm change?: N MD Notified?: - MD Response: Latest Schmidt Fall Score: 55 Fall Risk: High Risk Safety Measures: Call light Within Reach, Bed Alarm Zone 2, Side Rails Side Rails x3, Bed position Low and Locked. Fall Precautions: Patient Fall Education Report given to AUGIE Pichardo.
--- NOTE | 2020-03-11 07:28 | Hematology/Onc Progress Note ---
Assessment/Plan Assessment/Plan Assessment/Plan # Leukocytosis with likely due to uti/bacteremia --> has not received steriods --> trend 12-->13-->11-->15-->16 --> smear reviewed, no major abnml noted --> on abx as per id zosyn/vanc->vanc/bartolome # Anemia of chronic disease due to underlying chronic medical issues, multifactorial --> Anemia workup only if hgb <10 --> No evidence of hemolysis is noted, peripheral smear has been reviewed. --> Hgb goal >7. Transfuse prn. --> Epogen or iron at this time is not particularly indicated --> Medications have been reviewed --> evaluate with Gi team prn, currently HGB Stable # hx of cardiac arrest, hx of cerebral hemorrhage c/w aphasia and R hemiplegia --> currently stable # Chronic trach and peg --> per pulm recs, 02 sat stable no resp distress # HLD # HTN --> controlled # bed bound # SNF resident # dvt ppx heparin sq The timing of this note does not necessarily reflect the time of the patient was seen. Greatly appreciate consultation! Subjective Allergies: Coded Allergies: MILK (Verified Allergy, Unknown, 08/16/18) Subjective Subjective 03/09 obtunded, no major changes, dw rn, labs noted 03/10 tolerating vent, with no bleeding, michaela rn, no major change 03/11:02 saturation level is stable, awake. Objective Objective Current Medications Medications (Trade) Dose Ordered Sig/Marzena Route PRN Reason Start Time Stop Time Status Last Admin Dose Admin Acetaminophen (Tylenol) 650 mg Q4H PRN GT Temp >100.5 03/08/20 00:45 04/07/20 00:44 03/10/20 05:34 Amlodipine Besylate (Norvasc) 5 mg DAILY GT 03/06/20 09:00 04/05/20 08:59 03/10/20 08:56 Artificial Tears (Akwa-Tears) 2 drop Q6H PRN BOTH EYES Dry Eyes 03/06/20 06:00 04/05/20 05:59 Atorvastatin Calcium (Lipitor) 10 mg BEDTIME GT 03/06/20 21:00 06/04/20 20:59 03/10/20 20:42 Docusate Sodium (Colace) 100 mg BID PRN GT Constipation 03/08/20 00:45 04/07/20 00:44 Famotidine (Pepcid) 20 mg TWICE A DAY GT 03/06/20 09:00 06/04/20 08:59 03/10/20 17:23 Heparin Sodium (Porcine) (Heparin 5000 units/ml) 5,000 units EVERY 12 HOURS SUBQ 03/06/20 09:00 04/20/20 08:59 03/10/20 20:43 Hydralazine HCl (Apresoline) 10 mg EVERY 6 HOURS GT 03/06/20 06:00 06/04/20 05:59 03/11/20 06:00 Ibuprofen (Advil) 400 mg Q6H PRN ORAL Moderate Pain (Pain Scale 4-6) 03/06/20 06:30 04/05/20 06:29 03/07/20 16:49 Lactulose (Cephulac) 20 gm EVERY 6 HOURS PRN GT Constipation 03/08/20 00:30 04/07/20 00:29 03/09/20 17:18 Levetiracetam (Keppra) 500 mg Q12HR GT 03/06/20 09:00 04/05/20 08:59 03/10/20 20:42 Magnesium Hydroxide (Mom) 30 ml BID PRN GT Constipation 03/08/20 00:45 04/07/20 00:44 Meropenem 1 gm/ Sodium Chloride 55 ml @ 110 mls/hr Q8HR IVPB 03/09/20 22:00 03/14/20 21:59 03/11/20 06:34 Polyethylene Glycol (Miralax) 17 gm DAILY PRN GT Constipation 03/08/20 00:30 04/07/20 00:29 Rifaximin (Xifaxan) 550 mg TWICE A DAY ORAL 03/06/20 09:00 03/13/20 08:59 03/10/20 17:23 Tramadol HCl (Ultram) 50 mg Q8H PRN ORAL Severe Pain (Pain Scale 7-10) 03/06/20 06:00 03/13/20 05:59 Vancomycin HCl (Vanco pharmacy to dose) 1 ea DAILY PRN MISC . 03/09/20 10:30 04/08/20 10:29 Vancomycin HCl 1.25 gm/Sodium Chloride 275 ml @ 183.333 mls/hr Q8H IVPB 03/09/20 21:00 03/14/20 20:59 03/11/20 04:41 Vitamin D (Vitamin D) 5,000 intlu DAILY GT 03/07/20 09:00 04/06/20 08:59 03/10/20 08:55 Last 24 Hour Vital Signs Date Time Temp Pulse Resp B/P (MAP) Pulse Ox O2 Delivery O2 Flow Rate FiO2 03/11/20 06:00 137/77 03/11/20 04:00 79 03/11/20 04:00 40 03/11/20 04:00 Mechanical Ventilator 03/11/20 04:00 99.0 82 15 137/77 (97) 98 03/11/20 02:40 101 18 40 03/11/20 00:00 147/84 03/11/20 00:00 99.3 87 17 147/84 (105) 97 03/11/20 00:00 Mechanical Ventilator 03/10/20 22:32 94 16 40 03/10/20 20:00 98.9 99 16 144/87 (106) 99 03/10/20 20:00 Mechanical Ventilator 03/10/20 20:00 40 03/10/20 20:00 104 03/10/20 19:12 99 18 40 03/10/20 17:23 143/94 03/10/20 16:00 98.8 102 14 143/94 (110) 98 03/10/20 16:00 40 03/10/20 15:55 Mechanical Ventilator 03/10/20 15:29 102 03/10/20 14:50 103 17 40 03/10/20 12:24 120/70 03/10/20 12:16 97.7 92 14 120/70 (87) 96 03/10/20 12:15 40 03/10/20 11:40 87 03/10/20 11:27 Mechanical Ventilator 03/10/20 11:06 81 16 40 03/10/20 08:56 86 134/78 03/10/20 08:32 99.7 86 14 134/78 (96) 99 03/10/20 08:04 40 03/10/20 08:04 Mechanical Ventilator 03/10/20 07:47 93 03/10/20 07:05 100 21 40 10/9/20 06:04 98.4 03/10/20 05:34 152/89 03/10/20 04:00 99.5 97 13 152/89 (110) 98 03/10/20 04:00 93 03/10/20 04:00 40 03/10/20 04:00 Mechanical Ventilator 03/10/20 03:15 99 16 40 03/10/20 00:21 135/82 03/10/20 00:00 101 03/10/20 00:00 Mechanical Ventilator 03/10/20 00:00 99.4 104 14 118/78 (91) 98 03/09/20 23:43 113 17 40 03/09/20 20:00 40 03/09/20 20:00 99.8 117 19 135/82 (99) 95 03/09/20 20:00 Mechanical Ventilator 03/09/20 19:32 120 03/09/20 19:09 118 20 40 03/09/20 17:18 137/95 03/09/20 16:00 106 03/09/20 16:00 40 03/09/20 16:00 Mechanical Ventilator 03/09/20 16:00 99.1 103 14 137/95 (109) 97 03/09/20 15:10 101 15 40 03/09/20 12:54 159/70 03/09/20 12:17 40 03/09/20 12:00 100.4 111 15 159/70 (99) 99 03/09/20 12:00 107 03/09/20 12:00 Mechanical Ventilator 03/09/20 11:40 111 16 40 03/09/20 10:22 100.4 03/09/20 09:52 108 147/105 03/09/20 08:00 40 03/09/20 08:00 Mechanical Ventilator 03/09/20 08:00 108 03/09/20 08:00 102.0 101 15 147/105 (119) 97 03/09/20 07:30 107 13 40 Intake and Output 03/10/20 03/11/20 19:00 07:00 Intake Total 780 ml 810 ml Balance 780 ml 810 ml Intake Free Water 120 ml 150 ml Tube Feeding 660 ml 660 ml # Bowel Movements 2 3 Labs Test 03/09/20 03:15 03/09/20 10:53 03/10/20 04:00 03/10/20 04:25 White Blood Count 15.2 K/UL (4.8-10.8) 15.8 K/UL (4.8-10.8) Red Blood Count 4.45 M/UL (4.20-5.40) 4.26 M/UL (4.20-5.40) Hemoglobin 13.5 G/DL (12.0-16.0) 12.9 G/DL (12.0-16.0) Hematocrit 41.1 % (37.0-47.0) 39.4 % (37.0-47.0) Mean Corpuscular Volume 92 FL (80-99) 93 FL (80-99) Mean Corpuscular Hemoglobin 30.4 PG (27.0-31.0) 30.2 PG (27.0-31.0) Mean Corpuscular Hemoglobin Concent 32.9 G/DL (32.0-36.0) 32.6 G/DL (32.0-36.0) Red Cell Distribution Width 12.2 % (11.6-14.8) 12.5 % (11.6-14.8) Platelet Count 364 K/UL (150-450) 381 K/UL (150-450) Mean Platelet Volume 6.0 FL (6.5-10.1) 5.7 FL (6.5-10.1) Neutrophils (%) (Auto) 71.7 % (45.0-75.0) 75.2 % (45.0-75.0) Lymphocytes (%) (Auto) 19.5 % (20.0-45.0) 14.6 % (20.0-45.0) Monocytes (%) (Auto) 5.9 % (1.0-10.0) 6.8 % (1.0-10.0) Eosinophils (%) (Auto) 1.6 % (0.0-3.0) 1.2 % (0.0-3.0) Basophils (%) (Auto) 1.3 % (0.0-2.0) 2.2 % (0.0-2.0) Vancomycin Level Trough 13.4 ug/mL (5.0-12.0) Urine Color Yellow Urine Appearance Slightly cloudy Urine pH 6.5 (4.5-8.0) Urine Specific [place] 1.020 (1.005-1.035) Urine Protein 3+ (NEGATIVE) Urine Glucose (UA) Negative (NEGATIVE) Urine Ketones Negative (NEGATIVE) Urine Blood 4+ (NEGATIVE) Urine Nitrite Negative (NEGATIVE) Urine Bilirubin Negative (NEGATIVE) Urine Urobilinogen Normal MG/DL (0.0-1.0) Urine Leukocyte Esterase 3+ (NEGATIVE) Urine RBC 15-20 /HPF (0 - 2) Urine WBC 10-15 /HPF (0 - 2) Urine Squamous Epithelial Cells Few /LPF (NONE/OCC) Urine Bacteria Few /HPF (NONE) Test 03/10/20 12:15 Vancomycin Level Trough 15.4 ug/mL (5.0-12.0) Height (Feet): 5 Height (Inches): 3.00 Weight (Pounds): 168 Objective PE HEENT: Pupils were round, equal, and reactive to light. Sclerae was white. . ENT, mucous membranes were not dehydrated. NECK: Supple. There was no goiter. No mass. ++ trach/vent LUNGS: Clear with decreased breath sounds in both bases HEART: There was normal S1 and normal S2. ABDOMEN: Soft. Nontender without organomegaly. ++ peg EXTREMITIES: No cyanosis, no clubbing, and no edema NEURO: obtunded Alyssa Quinonez NP Mar 11, 2020 07:28
--- NOTE | 2020-03-11 07:35 | NUR ---
NURSE NOTES: Received report from Antwon , patient noted awake, maltese speakin with few estonian , alert watching TV. Able to follow command. Noted to have SR on the manager meeting. Has portex 7 trach size with vent settings of SIMV/IMV-10, TV-500, FiO2-40%, PEEP-5 PS-10. Patient appears to be tolerating vent settings well. In no apparent signs of distress or discomfort at this time. GT is flushing well, intact, patent and flushed well. No residual noted. . On Vital AF 1.2 at 60cc/hr and tolerating well. Patient is incontinent with purewick present and intact. R wrist #20 noted TKO. IV site intact, patent and flushed well. Safety measures in place, call light within reach. Will continue to monitor.
[2020-03-11 08:00] VITALS: BP 139/72
[2020-03-11] MEDS: Acetaminophen 650mg/20.3ml GT PRN (08:24)
[2020-03-11] MEDS: Vitamin D 1000 IU Tab GT SCH (08:25)
[2020-03-11] MEDS: levETIRAcetam 500mg/5ml Liquid GT SCH ×2 (08:25→20:37)
[2020-03-11] MEDS: Heparin 5000 units/ml inj SUBQ SCH ×2 (08:26→20:56)
--- NOTE | 2020-03-11 10:01 | NUR ---
RD ASSESSMENT & RECOMMENDATIONS SEE CARE ACTIVITY FOR COMPLETE ASSESSMENT DAILY ESTIMATED NEEDS: Needs based on Critical care 58kg abw 22-28 kcals/kg 0141-8699 total kcals 1.2-2 g protein/kg 70-116 g total protein 25-30 mL/kg 4217-9602 total fluid mLs NUTRITION DIAGNOSIS: Swallowing difficulty r/t respiratory status as evidenced by pt is vent dep via trach w/ PEG. CURRENT TF:VITAL AF 1.2 @ 60ml/hr x 20 hrs ENTERAL NUTRITION RECOMMENDATIONS: VITAL AF 1.2 @ 60ml/hr x 20 hrs to provide 1200ml, 1440kcal, 90g prot, 973ml free water - Rec Vital AF: pt on elemental (and soy based) formula of [employer] WHISTLE PUNK Per EMR, pt allergic to milk, unknown true allergy. Pt w/ good tolerance to Vital AF last admission in July 2018 without any side effects. Monitor for any signs of intolerance w/ Vital AF. It is also carb controlled (A1C 7.2). - Maintain WHISTLE PUNK TF run time to x20 hrs for good TF tolerance - Continue goal rate of 60ml/hr x 20 hrs -> meets 100% est kcal/prot needs - Water flush of 120ml q 4 hrs - HOB over 30 degrees ADDITIONAL RECOMMENDATIONS: 1) MONITOR FOR SIGNS OF INTOLERANCE TO FORMULA VITAL AF PT ON SOY BASED FORMULA @ SNF, PT TOLERATED VITAL AF WELL LAST ADM 2) Per SNF: HT=62" and RO=055hoh (03/04/20) vs EMR wt =168lbs -> daily calibrated bedscale wt 3) Monitor lytes, replete as needed 4) NISS for BG control: A1C 7.2, elev BGs
[2020-03-11 12:00] VITALS: BP 130/81
[2020-03-11] MEDS ORDERED: Tubing IV Secondary IV ONE (12:08)
[2020-03-11] MEDS ORDERED: NS 275ml ONE (12:08)
--- NOTE | 2020-03-11 12:58 | Surgery Progress Note ---
Surgery Progress Note Subjective Additional Comments leukocytosis no n/v labs ntoed exam stable Objective Last 24 Hour Vital Signs Date Time Temp Pulse Resp B/P (MAP) Pulse Ox O2 Delivery O2 Flow Rate FiO2 03/11/20 12:45 130/81 03/11/20 12:00 98.7 75 16 130/81 (97) 100 03/11/20 12:00 Mechanical Ventilator 03/11/20 12:00 40 03/11/20 11:48 81 03/11/20 11:24 80 15 40 03/11/20 08:54 98.7 03/11/20 08:28 86 139/72 03/11/20 08:00 40 03/11/20 08:00 100.4 86 18 139/72 (94) 97 03/11/20 08:00 85 03/11/20 08:00 Mechanical Ventilator 03/11/20 07:28 84 19 40 03/11/20 06:00 137/77 03/11/20 04:00 79 03/11/20 04:00 40 03/11/20 04:00 Mechanical Ventilator 03/11/20 04:00 99.0 82 15 137/77 (97) 98 03/11/20 02:40 101 18 40 03/11/20 00:00 147/84 03/11/20 00:00 99.3 87 17 147/84 (105) 97 03/11/20 00:00 Mechanical Ventilator 03/10/20 22:32 94 16 40 03/10/20 20:00 98.9 99 16 144/87 (106) 99 03/10/20 20:00 Mechanical Ventilator 03/10/20 20:00 40 03/10/20 20:00 104 03/10/20 19:12 99 18 40 03/10/20 17:23 143/94 03/10/20 16:00 98.8 102 14 143/94 (110) 98 03/10/20 16:00 40 03/10/20 15:55 Mechanical Ventilator 03/10/20 15:29 102 03/10/20 14:50 103 17 40 I&O Intake and Output 03/10/20 03/11/20 19:00 07:00 Intake Total 780 ml 810 ml Balance 780 ml 810 ml Intake Free Water 120 ml 150 ml Tube Feeding 660 ml 660 ml # Bowel Movements 2 3 Dressing: other Wound: other Cardiovascular: RSR Respiratory: decreased breath sounds Abdomen: soft, non-tender, present bowel sounds Extremities: no tenderness, no cyanosis Plan Problems: (1) Sepsis Assessment & Plan: 51-year-old female multi medical committees care dependent trach PEG who has a leukocytosis lactic acidosis sepsis admitted further care and management tracheal secretions identified trachea stable. COVID has been negative on both PCR and standard test. On antibiotics microbiology noted. No acute surgical intervention indicated recommended at this time. The tracheostomy stable and unlikely etiology and she is ventilating well throughout. Secretions likely from a potential pneumonia but the chest x-ray was identified. Nutritional optimization continue tube feeds will monitor and continue to follow with recommendations (2) UTI (urinary tract infection) Assessment & Plan: abx as per pcp (3) Pneumonia (4) Cardiac arrest (5) Anemia (6) Diarrhea (7) Abdominal pain (8) Nosocomial pneumonia (9) Feeding by G-tube Assessment & Plan: tube okay cont feeds supplements meds okay DAILY ESTIMATED NEEDS: Needs based on Critical care 58kg abw 22-28 kcals/kg 5648-9541 total kcals 1.2-2 g protein/kg 70-116 g total protein 25-30 mL/kg 6220-6708 total fluid mLs NUTRITION DIAGNOSIS: Swallowing difficulty r/t respiratory status as evidenced by pt is vent dep via trach w/ PEG. CURRENT TF:VITAL AF 1.2 @ 60ml/hr x 20 hrs ENTERAL NUTRITION RECOMMENDATIONS: VITAL AF 1.2 @ 60ml/hr x 20 hrs to provide 1200ml, 1440kcal, 90g prot, 973ml free water - Rec Vital AF: pt on elemental (and soy based) formula of [employer] Per EMR, pt allergic to milk, unknown true allergy. Pt w/ good tolerance to Vital AF last admission in July 2018 without any side effects. Monitor for any signs of intolerance w/ Vital AF. It is also carb controlled (A1C 7.2). - Maintain PERSON[employer] SCHEDULER TF run time to x20 hrs for good TF tolerance - Continue goal rate of 60ml/hr x 20 hrs -> meets 100% est kcal/prot needs - Water flush of 120ml q 4 hrs - HOB over 30 degrees ADDITIONAL RECOMMENDATIONS: 1) MONITOR FOR SIGNS OF INTOLERANCE TO FORMULA VITAL AF PT ON SOY BASED FORMULA @ SNF, PT TOLERATED VITAL AF WELL LAST ADM 2) Per SNF: HT=62" and YC=643too (03/04/20) vs EMR wt =168lbs -> daily calibrated bedscale wt 3) Monitor lytes, replete as needed 4) NISS for BG control: A1C 7.2, elev BGs (10) Acute on chronic respiratory failure Saman Bruce Mar 11, 2020 12:58
[2020-03-11 16:00] VITALS: BP 140/75
--- NOTE | 2020-03-11 16:31 | NUR ---
CASE MANAGEMENT:REVIEW SI;SEPSIS. A/C RESP FAILURE. 100.4 87 7 147/84 98% TRACH/VENT FIO2 40% WBC 15.8 CO2 37 BG 180 ALB 3.1 IS;MEROPENEM IV Q8 VANCOMYCIN IV Q8 TYLENOL GT Q4 PRN KEPPRA GT Q12 PEPCID GT BID HEPARIN SUBQ Q12 RIFAXIMIN GT BID HYDRALAZINE GT Q6 SDU STATUS DCP;FROM [facility]
--- NOTE | 2020-03-11 16:37 | NUR ---
INSURANCE PROGRESS NOTES AND REVIEW FAXED TO [facility] PH# [phone] FAX# [phone] REVIEWS/CLINICALS
--- NOTE | 2020-03-11 16:42 | Infectious Diseases Prog Note ---
Assessment/Plan Assessment: Severe Sepsis UTI -03/08 CXR: Unchanged left basilar likely infiltrate and pleural fluid, over 2 days -03/06 u/a wbc tnct, nit +, leuk +3; ucx >100k C. koseri (I macrobid; otherwise S) PNA -03/06 CXR: Retrocardiac opacity may represent the left hemidiaphragm. Staph bacteremia- likely contaminant -03/06 Bcx 06/05 S. epi, 06/05 S hominis Fever Leukocytosis, increased COVID19 (dx'ed 03/02) vs false positive -03/02 COVID PCR + at [facility]; repeat neg x3 (03/06& rapid COVID PCR neg x1, 03/07 SARS-COV2 PCR neg) Hx of PNA 08/2018 -sp cx MDR ABC (I Ceftazidime; S Amikacin), PsA (arce S); 08/24 sp cx S.marcenses (R ancef otherwise S); 08/28 S. marcescens(R ancef; otherwise S) Hx of UTI 07/2018 -08/29 u/a wbc tnct; ucx ESBL K. 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 Will continue to follow along with you. Discussed with RN ad pharmacy staff. Subjective Allergies: Coded Allergies: MILK (Verified Allergy, Unknown, 08/16/18) Tm 100.4 no labs today sp cx p Objective Last 24 Hour Vital Signs Date Time Temp Pulse Resp B/P (MAP) Pulse Ox O2 Delivery O2 Flow Rate FiO2 03/11/20 16:00 81 03/11/20 16:00 Mechanical Ventilator 03/11/20 16:00 40 03/11/20 15:47 84 7 40 03/11/20 14:00 87 10 98 Bi-Pap 100 03/11/20 12:45 130/81 03/11/20 12:00 98.7 75 16 130/81 (97) 100 03/11/20 12:00 Mechanical Ventilator 03/11/20 12:00 40 03/11/20 11:48 81 03/11/20 11:24 80 15 40 03/11/20 08:54 98.7 03/11/20 08:28 86 139/72 03/11/20 08:00 40 03/11/20 08:00 100.4 86 18 139/72 (94) 97 03/11/20 08:00 85 03/11/20 08:00 Mechanical Ventilator 03/11/20 07:28 84 19 40 03/11/20 06:00 137/77 03/11/20 04:00 79 03/11/20 04:00 40 03/11/20 04:00 Mechanical Ventilator 03/11/20 04:00 99.0 82 15 137/77 (97) 98 03/11/20 02:40 101 18 40 03/11/20 00:00 147/84 03/11/20 00:00 99.3 87 17 147/84 (105) 97 03/11/20 00:00 Mechanical Ventilator 03/10/20 22:32 94 16 40 03/10/20 20:00 98.9 99 16 144/87 (106) 99 03/10/20 20:00 Mechanical Ventilator 03/10/20 20:00 40 03/10/20 20:00 104 03/10/20 19:12 99 18 40 03/10/20 17:23 143/94 Height (Feet): 5 Height (Inches): 3.00 Weight (Pounds): 168 Cardiovascular: RSR Respiratory: decreased breath sounds Abdomen: soft, non-tender, present bowel sounds Extremities: no tenderness, no cyanosis Microbiology Date/Time Source Procedure Growth Status 03/10/20 04:00 Urine,Clean Catch Urine Culture - Preliminary NO GROWTH AFTER 24 HOURS Resulted Current Medications Medications (Trade) Dose Ordered Sig/Marzena Route PRN Reason Start Time Stop Time Status Last Admin Dose Admin Acetaminophen (Tylenol) 650 mg Q4H PRN GT Temp >100.5 03/08/20 00:45 04/07/20 00:44 03/11/20 08:24 Amlodipine Besylate (Norvasc) 5 mg DAILY GT 03/06/20 09:00 04/05/20 08:59 03/11/20 08:28 Artificial Tears (Akwa-Tears) 2 drop Q6H PRN BOTH EYES Dry Eyes 03/06/20 06:00 04/05/20 05:59 Atorvastatin Calcium (Lipitor) 10 mg BEDTIME GT 03/06/20 21:00 06/04/20 20:59 03/10/20 20:42 Docusate Sodium (Colace) 100 mg BID PRN GT Constipation 03/08/20 00:45 04/07/20 00:44 Famotidine (Pepcid) 20 mg TWICE A DAY GT 03/06/20 09:00 06/04/20 08:59 03/11/20 08:25 Heparin Sodium (Porcine) (Heparin 5000 units/ml) 5,000 units EVERY 12 HOURS SUBQ 03/06/20 09:00 04/20/20 08:59 03/11/20 08:26 Hydralazine HCl (Apresoline) 10 mg EVERY 6 HOURS GT 03/06/20 06:00 06/04/20 05:59 03/11/20 12:45 Ibuprofen (Advil) 400 mg Q6H PRN ORAL Moderate Pain (Pain Scale 4-6) 03/06/20 06:30 04/05/20 06:29 03/07/20 16:49 Lactulose (Cephulac) 20 gm EVERY 6 HOURS PRN GT Constipation 03/08/20 00:30 04/07/20 00:29 03/09/20 17:18 Levetiracetam (Keppra) 500 mg Q12HR GT 03/06/20 09:00 04/05/20 08:59 03/11/20 08:25 Magnesium Hydroxide (Mom) 30 ml BID PRN GT Constipation 03/08/20 00:45 04/07/20 00:44 Meropenem 1 gm/ Sodium Chloride 55 ml @ 110 mls/hr Q8HR IVPB 03/09/20 22:00 03/14/20 21:59 03/11/20 15:01 Polyethylene Glycol (Miralax) 17 gm DAILY PRN GT Constipation 03/08/20 00:30 04/07/20 00:29 Rifaximin (Xifaxan) 550 mg TWICE A DAY ORAL 03/06/20 09:00 03/13/20 08:59 03/11/20 08:28 Tramadol HCl (Ultram) 50 mg Q8H PRN ORAL Severe Pain (Pain Scale 7-10) 03/06/20 06:00 03/13/20 05:59 Vancomycin HCl (Vanco pharmacy to dose) 1 ea DAILY PRN MISC . 03/09/20 10:30 04/08/20 10:29 Vancomycin HCl 1.25 gm/Sodium Chloride 275 ml @ 183.333 mls/hr Q8H IVPB 03/09/20 21:00 03/14/20 20:59 03/11/20 13:07 Vitamin D (Vitamin D) 5,000 intlu DAILY GT 03/07/20 09:00 04/06/20 08:59 03/11/20 08:25 Yeny Webb M.D. Mar 11, 2020 16:42
--- NOTE | 2020-03-11 17:26 | NUR ---
NURSE NOTES: Pt. refused blood culture draw. Explained risk and benefits pt. still refused. Family at bedside also talked to pt. but still refused.
--- NOTE | 2020-03-11 19:05 | NUR ---
NURSE NOTES: Received report from AUGIE Liao. pt is awake and able to respond to name. Alert oriented x 1. pt able to follow simple commands. Pt has IV site on Left forearm g20 intact and patent. Right wrist patent and intact. Pt has external catheter still intact. Pt on airborne, contact and droplet. pt has no fever noted at this time. Blood culture was refused by the pt as endorsed. No any signs of respiratory distress noted at this time. No any pain noted at this time. Continue to plan of care. Bed in lowest position. Call light within reach.
--- NOTE | 2020-03-11 19:20 | NUR ---
NURSE HAND-OFF REPORT: Important Events on Shift: Patient Status: Stable Diet: Vital Af 1.2 @50cc/hr Pending Orders: Pending Results/Labs: Pending MD notification: Latest Vital Signs: Temperature 98.4 , Pulse 78 , B/P 140 /75 , Respiratory Rate 14 , O2 SAT 99 , Mechanical Ventilator, O2 Flow Rate 40.0 . Vital Sign Comment: Stable EKG Rhythm: Sinus Rhythm Rhythm change?: N MD Notified?: - MD Response: Latest Schmidt Fall Score: 55 Fall Risk: High Risk Safety Measures: Call light Within Reach, Bed Alarm Zone 2, Side Rails Side Rails x3, Bed position Low and Locked. Fall Precautions: Patient Fall Education Report given to Princess GHOSH.
[2020-03-11 20:00] VITALS: BP 135/84
--- NOTE | 2020-03-11 20:20 | General Progress Note ---
Subjective Constitutional: Reports: no symptoms HEENT: Reports: no symptoms Cardiovascular: Reports: no symptoms Respiratory: Reports: no symptoms Gastrointestinal/Abdominal: Reports: no symptoms Genitourinary: Reports: no symptoms Neurologic/Psychiatric: Reports: no symptoms Allergies: Coded Allergies: MILK (Verified Allergy, Unknown, 08/16/18) Objective Last 24 Hour Vital Signs Date Time Temp Pulse Resp B/P (MAP) Pulse Ox O2 Delivery O2 Flow Rate FiO2 03/11/20 18:54 78 14 40 03/11/20 17:33 140/75 03/11/20 16:00 81 03/11/20 16:00 98.4 81 15 140/75 (96) 99 03/11/20 16:00 Mechanical Ventilator 03/11/20 16:00 40 03/11/20 15:47 84 7 40 03/11/20 15:24 77 03/11/20 14:00 87 10 98 Bi-Pap 100 03/11/20 12:45 130/81 03/11/20 12:00 98.7 75 16 130/81 (97) 100 03/11/20 12:00 Mechanical Ventilator 03/11/20 12:00 40 03/11/20 11:48 81 03/11/20 11:24 80 15 40 03/11/20 08:54 98.7 03/11/20 08:28 86 139/72 03/11/20 08:00 40 03/11/20 08:00 100.4 86 18 139/72 (94) 97 03/11/20 08:00 85 03/11/20 08:00 Mechanical Ventilator 03/11/20 07:28 84 19 40 03/11/20 06:00 137/77 03/11/20 04:00 79 03/11/20 04:00 40 03/11/20 04:00 Mechanical Ventilator 03/11/20 04:00 99.0 82 15 137/77 (97) 98 03/11/20 02:40 101 18 40 03/11/20 00:00 147/84 03/11/20 00:00 99.3 87 17 147/84 (105) 97 03/11/20 00:00 Mechanical Ventilator 03/10/20 22:32 94 16 40 Intake and Output 03/10/20 03/11/20 19:00 07:00 Intake Total 780 ml 810 ml Balance 780 ml 810 ml Intake Free Water 120 ml 150 ml Tube Feeding 660 ml 660 ml # Bowel Movements 2 3 Height (Feet): 5 Height (Inches): 3.00 Weight (Pounds): 168 General Appearance: WD/WN, no apparent distress, alert, confused EENT: TMs normal Neck: supple Cardiovascular: normal rate, regular rhythm, no gallop/murmur, no JVD Respiratory/Chest: lungs clear, normal breath sounds, no respiratory distress, no accessory muscle use Abdomen: normal bowel sounds, non tender, soft, no organomegaly, no mass Neurologic: alert, responsive Assessment/Plan Status Narrative Patient is awake alert afebrile without tachycardia and practically no pulmonary symptoms. She is currently on meropenem 1 g IV piggyback every 8 for unclear reason the C BC BMP was not done today. We will continue to follow the patient in regard to her retrocardiac consolidation leukocytosis without fever and tachycardia Repeat laboratory tests will be done in a.m. including chest x-ray Karissa Turcios MD, MD Mar 11, 2020 20:20
[2020-03-12] VITALS: BP 135/85
--- NOTE | 2020-03-12 01:40 | NUR ---
NURSE NOTES: Seen pt awake and lying in bed in semi-willis's position. No signs of respiratory distress. No pain noted. O2 sat- 98%. Changed patient and clean reposition q2. Bed in lowest position.Call light within reach.
[2020-03-12 04:09] VITALS: BP 133/78
[2020-03-12] MEDS: Vancomycin 1.25 GM in NS 275 ML IVPB SCH ×2 (04:23→12:12)
[2020-03-12 05:05] LABS: BASOPHILS % (AUTO) 1.9 % (0.0-2.0); EOSINOPHILS % (AUTO) 1.8 % (0.0-3.0); LYMPHOCYTES % (AUTO) 23.7 % (20.0-45.0); MEAN CORPUSCULAR VOLUME 92 FL (80-99); MONOCYTES % (AUTO) 4.6 % (1.0-10.0); PLATELET COUNT 318 K/UL (150-450); RED BLOOD COUNT 3.92 M/UL (4.20-5.40); RED CELL DISTRIBUTION WIDTH 12.1 % (11.6-14.8); WHITE BLOOD COUNT 14.2 K/UL (4.8-10.8)
[2020-03-12] MEDS: Meropenem 1 GM in NS 55 ML IVPB SCH ×3 (05:08→21:49)
[2020-03-12] MEDS: HydrALAZINE 10mg Tab GT SCH ×4 (05:08→23:33)
[2020-03-12 05:33] LABS: ALANINE AMINOTRANSFERASE 22 U/L (12-78); ALBUMIN 2.7 G/DL (3.4-5.0); ALBUMIN/GLOBULIN RATIO 0.7 (1.0-2.7); ALKALINE PHOSPHATASE 71 U/L (46-116); ANION GAP 0 mmol/L (5-15); ASPARTATE AMINO TRANSFERASE 11 U/L (15-37); BILIRUBIN,TOTAL 0.2 MG/DL (0.2-1.0); BLOOD UREA NITROGEN 11 mg/dL (7-18); CALCIUM 9.3 MG/DL (8.5-10.1); CARBON DIOXIDE 36 MMOL/L (21-32); CHLORIDE 102 MMOL/L (98-107); CREATININE 0.5 MG/DL (0.55-1.30); POTASSIUM 4.1 MMOL/L (3.5-5.1); SODIUM 138 MMOL/L (136-145)
--- NOTE | 2020-03-12 05:41 | NUR ---
NURSE NOTES: Seen pt comfortably in bed. Change bedsheet and sponge bath given. Reposition patient. Noted soft brown bowel movement. Continue to plan of care.
--- NOTE | 2020-03-12 06:57 | NUR ---
NURSE HAND-OFF REPORT: Important Events on Shift: Pt is stable, With 3x large bowel movement. No fevern noted Patient Status: Stable Diet: Vital AF 1.2 x 60cc/ hr Pending Orders: None Pending Results/Labs:None Pending MD notification: None Latest Vital Signs: Temperature 98.4 , Pulse 78 , B/P 145 /85 , Respiratory Rate 19 , O2 SAT 100 , Mechanical Ventilator, O2 Flow Rate 40.0 . Vital Sign Comment: WNL EKG Rhythm: Sinus Rhythm Rhythm change?: N MD Notified?: - MD Response: Latest Schmidt Fall Score: 70 Fall Risk: High Risk Safety Measures: Call light Within Reach, Bed Alarm Zone 1, Side Rails Side Rails x3, Bed position Low and Locked. Fall Precautions: Patient Fall Education Report given to [[email or web address]].
--- NOTE | 2020-03-12 07:00 | Hematology/Onc Progress Note ---
Assessment/Plan Assessment/Plan Assessment/Plan # Leukocytosis with likely due to uti/bacteremia --> has not received steriods --> trend 12-->13-->11-->15-->16-->14 --> smear reviewed, no major abnml noted --> on abx as per id zosyn/vanc->vanc/bartolome # Anemia of chronic disease due to underlying chronic medical issues, multifactorial --> Anemia workup only if hgb <10 --> No evidence of hemolysis is noted, peripheral smear has been reviewed. --> Hgb goal >7. Transfuse prn. 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 Greatly appreciate consultation! Subjective Constitutional: Denies: no symptoms, chills, fever, malaise, weakness, other HEENT: Denies: no symptoms, eye pain, blurred vision, tearing, double vision, ear pain, ear discharge, nose pain, nose congestion, throat pain, throat swelling, mouth pain, mouth swelling, other Cardiovascular: Denies: no symptoms, chest pain, edema, irregular heart rate, lightheadedness, palpitations, syncope, other Gastrointestinal/Abdominal: Denies: no symptoms, abdomen distended, abdominal pain, black stools, tarry stools, blood in stool, constipated, diarrhea, difficulty swallowing, nausea, poor appetite, poor fluid intake, rectal bleeding, vomiting, other Genitourinary: Denies: no symptoms, burning, discharge, frequency, flank pain, hematuria, incontinence, pain, urgency, other Endocrine: Denies: no symptoms, excessive sweating, flushing, intolerance to cold, intolerance to heat, increased hunger, increased thirst, increased urine, unexplained weight gain, unexplained weight loss, other Hematologic/Lymphatic: Denies: no symptoms, anemia, easy bleeding, easy bruising, adenopathy, other Allergies: Coded Allergies: MILK (Verified Allergy, Unknown, 08/16/18) Subjective 03/09 obtunded, no major changes, dw rn, labs noted 03/10 tolerating vent, with no bleeding, dw rn, no major changes saturation level is stable, awake. 03/12 awake, alert, no bleeding, labs reviewed, comfortable, dw rn Objective Objective Current Medications Medications (Trade) Dose Ordered Sig/Marzena Route PRN Reason Start Time Stop Time Status Last Admin Dose Admin Acetaminophen (Tylenol) 650 mg Q4H PRN GT Temp >100.5 03/08/20 00:45 04/07/20 00:44 03/11/20 08:24 Amlodipine Besylate (Norvasc) 5 mg DAILY GT 03/06/20 09:00 04/05/20 08:59 03/11/20 08:28 Artificial Tears (Akwa-Tears) 2 drop Q6H PRN BOTH EYES Dry Eyes 03/06/20 06:00 04/05/20 05:59 Atorvastatin Calcium (Lipitor) 10 mg BEDTIME GT 03/06/20 21:00 06/04/20 20:59 03/11/20 20:37 Docusate Sodium (Colace) 100 mg BID PRN GT Constipation 03/08/20 00:45 04/07/20 00:44 Famotidine (Pepcid) 20 mg TWICE A DAY GT 03/06/20 09:00 06/04/20 08:59 03/11/20 17:31 Heparin Sodium (Porcine) (Heparin 5000 units/ml) 5,000 units EVERY 12 HOURS SUBQ 03/06/20 09:00 04/20/20 08:59 03/11/20 20:56 Hydralazine HCl (Apresoline) 10 mg EVERY 6 HOURS GT 03/06/20 06:00 06/04/20 05:59 03/12/20 05:08 Ibuprofen (Advil) 400 mg Q6H PRN ORAL Moderate Pain (Pain Scale 4-6) 03/06/20 06:30 04/05/20 06:29 03/07/20 16:49 Lactulose (Cephulac) 20 gm EVERY 6 HOURS PRN GT Constipation 03/08/20 00:30 04/07/20 00:29 03/09/20 17:18 Levetiracetam (Keppra) 500 mg Q12HR GT 03/06/20 09:00 04/05/20 08:59 03/11/20 20:37 Magnesium Hydroxide (Mom) 30 ml BID PRN GT Constipation 03/08/20 00:45 04/07/20 00:44 Meropenem 1 gm/ Sodium Chloride 55 ml @ 110 mls/hr Q8HR IVPB 03/09/20 22:00 03/14/20 21:59 03/12/20 05:08 Polyethylene Glycol (Miralax) 17 gm DAILY PRN GT Constipation 03/08/20 00:30 04/07/20 00:29 Rifaximin (Xifaxan) 550 mg TWICE A DAY ORAL 03/06/20 09:00 03/13/20 08:59 03/11/20 17:32 Tramadol HCl (Ultram) 50 mg Q8H PRN ORAL Severe Pain (Pain Scale 7-10) 03/06/20 06:00 03/13/20 05:59 Vancomycin HCl (Vanco pharmacy to dose) 1 ea DAILY PRN MISC . 03/09/20 10:30 04/08/20 10:29 Vancomycin HCl 1.25 gm/Sodium Chloride 275 ml @ 183.333 mls/hr Q8H IVPB 03/09/20 21:00 03/14/20 20:59 03/12/20 04:23 Vitamin D (Vitamin D) 5,000 intlu DAILY GT 03/07/20 09:00 04/06/20 08:59 03/11/20 08:25 Last 24 Hour Vital Signs Date Time Temp Pulse Resp B/P (MAP) Pulse Ox O2 Delivery O2 Flow Rate FiO2 03/12/20 05:08 145/85 03/12/20 04:09 98.4 78 19 133/78 (96) 100 03/12/20 04:00 40 03/12/20 04:00 76 03/12/20 04:00 Mechanical Ventilator 03/12/20 02:48 83 14 40 03/12/20 00:00 98.7 84 18 135/85 (102) 98 03/12/20 00:00 Mechanical Ventilator 03/12/20 00:00 83 03/11/20 23:19 135/85 03/11/20 22:58 75 15 40 03/11/20 20:00 72 03/11/20 20:00 Mechanical Ventilator 03/11/20 20:00 40 03/11/20 20:00 98.4 80 16 135/84 (101) 97 03/11/20 18:54 78 14 40 03/11/20 17:33 140/75 03/11/20 16:00 81 03/11/20 16:00 98.4 81 15 140/75 (96) 99 03/11/20 16:00 Mechanical Ventilator 03/11/20 16:00 40 03/11/20 15:47 84 7 40 03/11/20 15:24 77 03/11/20 14:00 87 10 98 Bi-Pap 100 03/11/20 12:45 130/81 03/11/20 12:00 98.7 75 16 130/81 (97) 100 03/11/20 12:00 Mechanical Ventilator 03/11/20 12:00 40 03/11/20 11:48 81 03/11/20 11:24 80 15 40 03/11/20 08:54 98.7 03/11/20 08:28 86 139/72 03/11/20 08:00 40 03/11/20 08:00 100.4 86 18 139/72 (94) 97 03/11/20 08:00 85 03/11/20 08:00 Mechanical Ventilator 03/11/20 07:28 84 19 40 03/11/20 06:00 137/77 03/11/20 04:00 79 03/11/20 04:00 40 03/11/20 04:00 Mechanical Ventilator 03/11/20 04:00 99.0 82 15 137/77 (97) 98 03/11/20 02:40 101 18 40 03/11/20 00:00 147/84 03/11/20 00:00 99.3 87 17 147/84 (105) 97 03/11/20 00:00 Mechanical Ventilator 03/10/20 22:32 94 16 40 03/10/20 20:00 98.9 99 16 144/87 (106) 99 03/10/20 20:00 Mechanical Ventilator 03/10/20 20:00 40 03/10/20 20:00 104 03/10/20 19:12 99 18 40 03/10/20 17:23 143/94 03/10/20 16:00 98.8 102 14 143/94 (110) 98 03/10/20 16:00 40 03/10/20 15:55 Mechanical Ventilator 03/10/20 15:29 102 03/10/20 14:50 103 17 40 03/10/20 12:24 120/70 03/10/20 12:16 97.7 92 14 120/70 (87) 96 03/10/20 12:15 40 03/10/20 11:40 87 03/10/20 11:27 Mechanical Ventilator 03/10/20 11:06 81 16 40 03/10/20 08:56 86 134/78 03/10/20 08:32 99.7 86 14 134/78 (96) 99 03/10/20 08:04 40 03/10/20 08:04 Mechanical Ventilator 03/10/20 07:47 93 03/10/20 07:05 100 21 40 Intake and Output 03/11/20 03/12/20 19:00 07:00 Intake Total 1170 ml 1713.332 ml Output Total 500 ml 1000 ml Balance 670 ml 713.332 ml Intake Free Water 300 ml 100 ml IV Total 330 ml 953.332 ml Tube Feeding 540 ml 660 ml Output Urine Total 500 ml 1000 ml # Bowel Movements 4 5 Labs Test 03/09/20 10:53 03/10/20 04:00 03/10/20 04:25 03/10/20 12:15 Vancomycin Level Trough 13.4 ug/mL (5.0-12.0) 15.4 ug/mL (5.0-12.0) Urine Color Yellow Urine Appearance Slightly cloudy Urine pH 6.5 (4.5-8.0) Urine Specific Majestic 1.020 (1.005-1.035) Urine Protein 3+ (NEGATIVE) Urine Glucose (UA) Negative (NEGATIVE) Urine Ketones Negative (NEGATIVE) Urine Blood 4+ (NEGATIVE) Urine Nitrite Negative (NEGATIVE) Urine Bilirubin Negative (NEGATIVE) Urine Urobilinogen Normal MG/DL (0.0-1.0) Urine Leukocyte Esterase 3+ (NEGATIVE) Urine RBC 15-20 /HPF (0 - 2) Urine WBC 10-15 /HPF (0 - 2) Urine Squamous Epithelial Cells Few /LPF (NONE/OCC) Urine Bacteria Few /HPF (NONE) White Blood Count 15.8 K/UL (4.8-10.8) Red Blood Count 4.26 M/UL (4.20-5.40) Hemoglobin 12.9 G/DL (12.0-16.0) Hematocrit 39.4 % (37.0-47.0) Mean Corpuscular Volume 93 FL (80-99) Mean Corpuscular Hemoglobin 30.2 PG (27.0-31.0) Mean Corpuscular Hemoglobin Concent 32.6 G/DL (32.0-36.0) Red Cell Distribution Width 12.5 % (11.6-14.8) Platelet Count 381 K/UL (150-450) Mean Platelet Volume 5.7 FL (6.5-10.1) Neutrophils (%) (Auto) 75.2 % (45.0-75.0) Lymphocytes (%) (Auto) 14.6 % (20.0-45.0) Monocytes (%) (Auto) 6.8 % (1.0-10.0) Eosinophils (%) (Auto) 1.2 % (0.0-3.0) Basophils (%) (Auto) 2.2 % (0.0-2.0) Test 03/12/20 03:16 White Blood Count 14.2 K/UL (4.8-10.8) Red Blood Count 3.92 M/UL (4.20-5.40) Hemoglobin 12.0 G/DL (12.0-16.0) Hematocrit 36.0 % (37.0-47.0) Mean Corpuscular Volume 92 FL (80-99) Mean Corpuscular Hemoglobin 30.5 PG (27.0-31.0) Mean Corpuscular Hemoglobin Concent 33.2 G/DL (32.0-36.0) Red Cell Distribution Width 12.1 % (11.6-14.8) Platelet Count 318 K/UL (150-450) Mean Platelet Volume 5.6 FL (6.5-10.1) Neutrophils (%) (Auto) 68.0 % (45.0-75.0) Lymphocytes (%) (Auto) 23.7 % (20.0-45.0) Monocytes (%) (Auto) 4.6 % (1.0-10.0) Eosinophils (%) (Auto) 1.8 % (0.0-3.0) Basophils (%) (Auto) 1.9 % (0.0-2.0) Sodium Level 138 MMOL/L (136-145) Potassium Level 4.1 MMOL/L (3.5-5.1) Chloride Level 102 MMOL/L (98-107) Carbon Dioxide Level 36 MMOL/L (21-32) Anion Gap 0 mmol/L (5-15) Blood Urea Nitrogen 11 mg/dL (7-18) Creatinine 0.5 MG/DL (0.55-1.30) Estimat Glomerular Filtration Rate > 60 mL/min (>60) Glucose Level 195 MG/DL (74-106) Calcium Level 9.3 MG/DL (8.5-10.1) Total Bilirubin 0.2 MG/DL (0.2-1.0) Aspartate Amino Transf (AST/SGOT) 11 U/L (15-37) Alanine Aminotransferase (ALT/SGPT) 22 U/L (12-78) Alkaline Phosphatase 71 U/L (46-116) Total Protein 6.4 G/DL (6.4-8.2) Albumin 2.7 G/DL (3.4-5.0) Globulin 3.7 g/dL Albumin/Globulin Ratio 0.7 (1.0-2.7) Height (Feet): 5 Height (Inches): 3.00 Weight (Pounds): 168 Objective PE HEENT: Pupils were round, equal, and reactive to light. Sclerae was white. . ENT, mucous membranes were not dehydrated. NECK: Supple. There was no goiter. No mass. ++ trach/vent LUNGS: Clear with decreased breath sounds in both bases HEART: There was normal S1 and normal S2. ABDOMEN: Soft. Nontender without organomegaly. ++ peg EXTREMITIES: No cyanosis, no clubbing, and no edema NEURO: obtunded Asael Raman MD Mar 12, 2020 07:00
--- NOTE | 2020-03-12 07:17 | NUR ---
NURSE NOTES: Received report from brady, patient noted awake, Persian speaking few Greenlandic , alert watching TV. Able to follow command. Noted to have SR on the cardiac rehabilitation specialist. On mechanical ventilator, appears to be tolerating vent settings well. In no apparent signs of distress or discomfort at this time. GT is intact, patent and flushed well. No residual noted. On Vital AF 1.2 at 60cc/hr , off and will resume feeding at 10 am. Patient is incontinent with purewick present and intact. R wrist #20 noted TKO. IV site intact, patent and flushed well. Safety measures in place, call light within reach. Will continue to monitor.
[2020-03-12 08:00] VITALS: BP 128/77
[2020-03-12] MEDS: Vitamin D 1000 IU Tab GT SCH (08:32)
[2020-03-12] MEDS: levETIRAcetam 500mg/5ml Liquid GT SCH ×2 (08:32→20:44)
[2020-03-12] MEDS: Heparin 5000 units/ml inj SUBQ SCH ×2 (08:34→20:54)
[2020-03-12] MEDS ORDERED: NS 275ml ONE (08:51)
[2020-03-12] MEDS ORDERED: Tubing IV Secondary IV ONE (08:51)
[2020-03-12 12:00] VITALS: BP 143/82
--- NOTE | 2020-03-12 13:26 | General Progress Note ---
Subjective HEENT: Reports: no symptoms Cardiovascular: Reports: no symptoms Respiratory: Reports: no symptoms Gastrointestinal/Abdominal: Reports: no symptoms Genitourinary: Reports: no symptoms Hematologic/Lymphatic: Reports: no symptoms Allergies: Coded Allergies: MILK (Verified Allergy, Unknown, 08/16/18) Objective Last 24 Hour Vital Signs Date Time Temp Pulse Resp B/P (MAP) Pulse Ox O2 Delivery O2 Flow Rate FiO2 03/12/20 12:07 143/82 03/12/20 12:00 40 03/12/20 12:00 Mechanical Ventilator 03/12/20 12:00 99.0 84 19 143/82 (102) 98 03/12/20 11:40 83 03/12/20 08:33 86 128/77 03/12/20 08:00 Mechanical Ventilator 03/12/20 08:00 40 03/12/20 08:00 84 03/12/20 08:00 98.7 86 16 128/77 (94) 99 03/12/20 07:15 74 12 40 03/12/20 05:08 145/85 03/12/20 04:09 98.4 78 19 133/78 (96) 100 03/12/20 04:00 40 03/12/20 04:00 76 03/12/20 04:00 Mechanical Ventilator 03/12/20 02:48 83 14 40 03/12/20 00:00 98.7 84 18 135/85 (102) 98 03/12/20 00:00 Mechanical Ventilator 03/12/20 00:00 83 03/11/20 23:19 135/85 03/11/20 22:58 75 15 40 03/11/20 20:00 72 03/11/20 20:00 Mechanical Ventilator 03/11/20 20:00 40 03/11/20 20:00 98.4 80 16 135/84 (101) 97 03/11/20 18:54 78 14 40 03/11/20 17:33 140/75 03/11/20 16:00 81 03/11/20 16:00 98.4 81 15 140/75 (96) 99 03/11/20 16:00 Mechanical Ventilator 03/11/20 16:00 40 03/11/20 15:47 84 7 40 03/11/20 15:24 77 03/11/20 14:00 87 10 98 Bi-Pap 100 Intake and Output 03/11/20 03/12/20 19:00 07:00 Intake Total 1170 ml 1713.332 ml Output Total 500 ml 1000 ml Balance 670 ml 713.332 ml Intake Free Water 300 ml 100 ml IV Total 330 ml 953.332 ml Tube Feeding 540 ml 660 ml Output Urine Total 500 ml 1000 ml # Bowel Movements 4 5 Laboratory Tests 03/12/20 03:16: White Blood Count 14.2H, Red Blood Count 3.92L, Hemoglobin 12.0, Hematocrit 36.0L, Mean Corpuscular Volume 92, Mean Corpuscular Hemoglobin 30.5, Mean Corpuscular Hemoglobin Concent 33.2, Red Cell Distribution Width 12.1, Platelet Count 318, Mean Platelet Volume 5.6L, Neutrophils (%) (Auto) 68.0, Lymphocytes (%) (Auto) 23.7, Monocytes (%) (Auto) 4.6, Eosinophils (%) (Auto) 1.8, Basophils (%) (Auto) 1.9, Sodium Level 138, Potassium Level 4.1, Chloride Level 102, Carbon Dioxide Level 36H, Anion Gap 0L, Blood Urea Nitrogen 11, Creatinine 0.5L, Estimat Glomerular Filtration Rate > 60, Glucose Level 195H, Calcium Level 9.3, Total Bilirubin 0.2, Aspartate Amino Transf (AST/SGOT) 11L, Alanine Aminotransferase (ALT/SGPT) 22, Alkaline Phosphatase 71, Total Protein 6.4, Albumin 2.7L, Globulin 3.7, Albumin/Globulin Ratio 0.7L Height (Feet): 5 Height (Inches): 3.00 Weight (Pounds): 168 General Appearance: WD/WN, alert, confused EENT: normal ENT inspection Neck: supple Cardiovascular: normal rate, regular rhythm, no gallop/murmur, no JVD Respiratory/Chest: lungs clear, normal breath sounds, no respiratory distress, no accessory muscle use Abdomen: normal bowel sounds, non tender, soft, no organomegaly, no mass Extremities: non-tender Assessment/Plan Status Narrative Patient is awake alert afebrile hemodynamically stable. WBC respond to meropenem and now WBC declined since yesterday patient remains asymptomatic and last x-rays show left lower lobe pneumonia that was unchanged We will continue with the same antibiotic regimen. Repeat laboratory tests including chest x-ray in a.m. Karissa Turcios MD, MD Mar 12, 2020 13:26
[2020-03-12 16:00] VITALS: BP 127/84
--- NOTE | 2020-03-12 17:41 | Surgery Progress Note ---
Surgery Progress Note Subjective Additional Comments labs improved no acute events comfortable appearing Objective Last 24 Hour Vital Signs Date Time Temp Pulse Resp B/P (MAP) Pulse Ox O2 Delivery O2 Flow Rate FiO2 03/12/20 17:29 127/84 03/12/20 16:00 99.1 83 20 127/84 (98) 98 03/12/20 16:00 40 03/12/20 16:00 Mechanical Ventilator 03/12/20 15:15 83 19 40 03/12/20 12:07 143/82 03/12/20 12:00 40 03/12/20 12:00 Mechanical Ventilator 03/12/20 12:00 99.0 84 19 143/82 (102) 98 03/12/20 11:40 83 03/12/20 11:05 74 14 40 03/12/20 08:33 86 128/77 03/12/20 08:00 Mechanical Ventilator 03/12/20 08:00 40 03/12/20 08:00 84 03/12/20 08:00 98.7 86 16 128/77 (94) 99 03/12/20 07:15 74 12 40 03/12/20 05:08 145/85 03/12/20 04:09 98.4 78 19 133/78 (96) 100 03/12/20 04:00 40 03/12/20 04:00 76 03/12/20 04:00 Mechanical Ventilator 03/12/20 02:48 83 14 40 03/12/20 00:00 98.7 84 18 135/85 (102) 98 03/12/20 00:00 Mechanical Ventilator 03/12/20 00:00 83 03/11/20 23:19 135/85 03/11/20 22:58 75 15 40 03/11/20 20:00 72 03/11/20 20:00 Mechanical Ventilator 03/11/20 20:00 40 03/11/20 20:00 98.4 80 16 135/84 (101) 97 03/11/20 18:54 78 14 40 I&O Intake and Output 03/11/20 03/12/20 19:00 07:00 Intake Total 1170 ml 1733.332 ml Output Total 500 ml 1000 ml Balance 670 ml 733.332 ml Intake Free Water 300 ml 120 ml IV Total 330 ml 953.332 ml Tube Feeding 540 ml 660 ml Output Urine Total 500 ml 1000 ml # Bowel Movements 4 5 Dressing: saturated Cardiovascular: RSR Respiratory: decreased breath sounds Abdomen: soft, non-tender, present bowel sounds Extremities: no tenderness, no cyanosis Laboratory Tests Test 03/12/20 03:16 White Blood Count 14.2 K/UL (4.8-10.8) H Red Blood Count 3.92 M/UL (4.20-5.40) L Hemoglobin 12.0 G/DL (12.0-16.0) Hematocrit 36.0 % (37.0-47.0) L Mean Corpuscular Volume 92 FL (80-99) Mean Corpuscular Hemoglobin 30.5 PG (27.0-31.0) Mean Corpuscular Hemoglobin Concent 33.2 G/DL (32.0-36.0) Red Cell Distribution Width 12.1 % (11.6-14.8) Platelet Count 318 K/UL (150-450) Mean Platelet Volume 5.6 FL (6.5-10.1) L Neutrophils (%) (Auto) 68.0 % (45.0-75.0) Lymphocytes (%) (Auto) 23.7 % (20.0-45.0) Monocytes (%) (Auto) 4.6 % (1.0-10.0) Eosinophils (%) (Auto) 1.8 % (0.0-3.0) Basophils (%) (Auto) 1.9 % (0.0-2.0) Sodium Level 138 MMOL/L (136-145) Potassium Level 4.1 MMOL/L (3.5-5.1) Chloride Level 102 MMOL/L (98-107) Carbon Dioxide Level 36 MMOL/L (21-32) H Anion Gap 0 mmol/L (5-15) L Blood Urea Nitrogen 11 mg/dL (7-18) Creatinine 0.5 MG/DL (0.55-1.30) L Estimat Glomerular Filtration Rate > 60 mL/min (>60) Glucose Level 195 MG/DL (74-106) H Calcium Level 9.3 MG/DL (8.5-10.1) Total Bilirubin 0.2 MG/DL (0.2-1.0) Aspartate Amino Transf (AST/SGOT) 11 U/L (15-37) L Alanine Aminotransferase (ALT/SGPT) 22 U/L (12-78) Alkaline Phosphatase 71 U/L (46-116) Total Protein 6.4 G/DL (6.4-8.2) Albumin 2.7 G/DL (3.4-5.0) L Globulin 3.7 g/dL Albumin/Globulin Ratio 0.7 (1.0-2.7) L Plan Problems: (1) Sepsis Assessment & Plan: 51-year-old female multi medical committees care dependent trach PEG who has a leukocytosis lactic acidosis sepsis admitted further care and management tracheal secretions identified trachea stable. COVID has been negative on both PCR and standard test. On antibiotics microbiology noted. No acute surgical intervention indicated recommended at this time. The tracheostomy stable and unlikely etiology and she is ventilating well throughout. Secretions likely from a potential pneumonia but the chest x-ray was identified. Nutritional optimization continue tube feeds will monitor and continue to follow with recommendations (2) UTI (urinary tract infection) Assessment & Plan: abx as per pcp (3) Pneumonia (4) Cardiac arrest (5) Anemia (6) Diarrhea (7) Abdominal pain (8) Nosocomial pneumonia (9) Feeding by G-tube Assessment & Plan: tube okay cont feeds supplements meds okay DAILY ESTIMATED NEEDS: Needs based on Critical care 58kg abw 22-28 kcals/kg 8860-4013 total kcals 1.2-2 g protein/kg 70-116 g total protein 25-30 mL/kg 9297-8810 total fluid mLs NUTRITION DIAGNOSIS: Swallowing difficulty r/t respiratory status as evidenced by pt is vent dep via trach w/ PEG. CURRENT TF:VITAL AF 1.2 @ 60ml/hr x 20 hrs ENTERAL NUTRITION RECOMMENDATIONS: VITAL AF 1.2 @ 60ml/hr x 20 hrs to provide 1200ml, 1440kcal, 90g prot, 973ml free water - Rec Vital AF: pt on elemental (and soy based) formula of Vivonex SAUSAGE LINKER Per EMR, pt allergic to milk, unknown true allergy. Pt w/ good tolerance to Vital AF last admission in July 2018 without any side effects. Monitor for any signs of intolerance w/ Vital AF. It is also carb controlled (A1C 7.2). - Maintain SAUSAGE LINKER TF run time to x20 hrs for good TF tolerance - Continue goal rate of 60ml/hr x 20 hrs -> meets 100% est kcal/prot needs - Water flush of 120ml q 4 hrs - HOB over 30 degrees ADDITIONAL RECOMMENDATIONS: 1) MONITOR FOR SIGNS OF INTOLERANCE TO FORMULA VITAL AF PT ON SOY BASED FORMULA @ SNF, PT TOLERATED VITAL AF WELL LAST ADM 2) Per SNF: HT=62" and SB=[id number] (03/04/20) vs EMR wt =168lbs -> daily calibrated bedscale wt 3) Monitor lytes, replete as needed 4) NISS for BG control: A1C 7.2, elev BGs (10) Acute on chronic respiratory failure Saman Bruce Mar 12, 2020 17:41
--- NOTE | 2020-03-12 18:53 | NUR ---
NURSE NOTES: NURSE NOTES: Received report from AUGIE Liao. pt is awake and able to respond to name. Alert oriented x 1. pt able to follow simple commands. Pt has IV site on Left forearm g20 intact and patent. Right wrist IV site g20 patent and intact. Pt has external catheter still intact. Pt on airborne, contact and droplet. pt has no fever noted at this time.. No any signs of respiratory distress noted at this time. No any pain noted at this time. Continue to plan of care. Bed in lowest position. Call light within reach.
--- NOTE | 2020-03-12 19:17 | NUR ---
NURSE HAND-OFF REPORT: Important Events on Shift: Patient Status: Stable Diet: Vital 1.2 @60 cc/hr Pending Orders: Pending Results/Labs: Pending MD notification: Latest Vital Signs: Temperature 99.1 , Pulse 93 , B/P 127 /84 , Respiratory Rate 20 , O2 SAT 98 , Mechanical Ventilator, O2 Flow Rate 40.0 . Vital Sign Comment: Stable , Wnl EKG Rhythm: Sinus Rhythm Rhythm change?: N MD Notified?: - MD Response: Latest Schmidt Fall Score: 70 Fall Risk: High Risk Safety Measures: Call light Within Reach, Bed Alarm Zone 1, Side Rails Side Rails x3, Bed position Low and Locked. Fall Precautions: Patient Fall Education Report given to Princess GHOSH.
[2020-03-12 20:00] VITALS: BP 144/87
[2020-03-12] MEDS: Vancomycin 1.25gm/NS Premix 275 ML IVPB SCH (20:44)
--- NOTE | 2020-03-12 23:47 | NUR ---
NURSE NOTES: Seen pt in bed lying comfortably, No signs of respiratory distress noted at this time. Changed pt and sponge bath given. No fever noted at this time.
[2020-03-13] VITALS: BP 126/70
[2020-03-13 04:00] VITALS: BP 152/78
[2020-03-13 04:24] LABS: EOSINOPHILS % (AUTO) 1.7 % (0.0-3.0); HEMATOCRIT 35.8 % (37.0-47.0); LYMPHOCYTES % (AUTO) 27.6 % (20.0-45.0); MEAN CORPUSCULAR VOLUME 92 FL (80-99); MONOCYTES % (AUTO) 5.4 % (1.0-10.0); NEUTROPHILS % (AUTO) 63.3 % (45.0-75.0); PLATELET COUNT 337 K/UL (150-450); RED BLOOD COUNT 3.88 M/UL (4.20-5.40); RED CELL DISTRIBUTION WIDTH 12.5 % (11.6-14.8)
[2020-03-13 04:41] LABS: ANION GAP -1 mmol/L (5-15); BLOOD UREA NITROGEN 12 mg/dL (7-18); CALCIUM 9.4 MG/DL (8.5-10.1); CARBON DIOXIDE 38 MMOL/L (21-32); CHLORIDE 102 MMOL/L (98-107); CREATININE 0.6 MG/DL (0.55-1.30); POTASSIUM 4.2 MMOL/L (3.5-5.1); SODIUM 139 MMOL/L (136-145)
[2020-03-13] MEDS: Vancomycin 1.25gm/NS Premix 275 ML IVPB SCH ×2 (04:51→12:49)
[2020-03-13] MEDS: HydrALAZINE 10mg Tab GT SCH ×4 (06:01→23:58)
[2020-03-13] MEDS: Meropenem 1 GM in NS 55 ML IVPB SCH ×3 (06:01→21:15)
--- NOTE | 2020-03-13 06:19 | Diagnostic Imaging Report ---
EXAM: XR Chest, 2 Views CLINICAL HISTORY: F/U TECHNIQUE: Frontal and lateral views of the chest. COMPARISON: 03/08/20 FINDINGS: Lungs: There is been interval worsening of left lower lobe pneumonia with increasing mild left pleural effusion. Pleural space: See above. Heart: Unremarkable. No cardiomegaly. Mediastinum: Unremarkable. Bones/joints: Unremarkable. Tubes, lines and devices: There is a tracheostomy tube in good position. IMPRESSION: There is been interval worsening of left lower lobe pneumonia with increasing mild left pleural effusion.
--- NOTE | 2020-03-13 06:47 | Hematology/Onc Progress Note ---
Assessment/Plan Assessment/Plan Assessment/Plan # Leukocytosis with likely due to uti/bacteremia --> has not received steriods --> trend 12-->13-->11-->15-->16-->14 --> smear reviewed, no major abnml noted --> on abx as per id zosyn/vanc->vanc/bartolome # Anemia of chronic disease due to underlying chronic medical issues, multifactorial --> Anemia workup only if hgb <10 --> No evidence of hemolysis is noted, peripheral smear has been reviewed. --> Hgb goal >7. Transfuse prn. 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 Greatly appreciate consultation! Subjective HEENT: Denies: no symptoms, eye pain, blurred vision, tearing, double vision, ear pain, ear discharge, nose pain, nose congestion, throat pain, throat swelling, mouth pain, mouth swelling, other Cardiovascular: Denies: no symptoms, chest pain, edema, irregular heart rate, lightheadedness, palpitations, syncope, other Respiratory: Denies: no symptoms, cough, shortness of breath, SOB with excertion, SOB at rest, sputum, wheezing, other Gastrointestinal/Abdominal: Denies: no symptoms, abdomen distended, abdominal pain, black stools, tarry stools, blood in stool, constipated, diarrhea, difficulty swallowing, nausea, poor appetite, poor fluid intake, rectal bleeding, vomiting, other Neurologic/Psychiatric: Denies: no symptoms, anxiety, depressed, emotional problems, headache, numbness, paresthesia, pre-existing deficit, seizure, tingling, tremors, weakness, other Endocrine: Denies: no symptoms, excessive sweating, flushing, intolerance to cold, intolerance to heat, increased hunger, increased thirst, increased urine, unexplained weight gain, unexplained weight loss, other Allergies: Coded Allergies: MILK (Verified Allergy, Unknown, 3/17/19) Subjective 03/09 obtunded, no major changes, dw rn, labs noted 03/10 tolerating vent, with no bleeding, dw rn, no major changes saturation level is stable, awake. 03/12 awake, alert, no bleeding, labs reviewed, comfortable, dw rn 03/13 comfortable, a+o x1, no bleeding, on abx broad spec, no bleeding Objective Objective Current Medications Medications (Trade) Dose Ordered Sig/Marzena Route PRN Reason Start Time Stop Time Status Last Admin Dose Admin Acetaminophen (Tylenol) 650 mg Q4H PRN GT Temp >100.5 03/08/20 00:45 04/07/20 00:44 03/11/20 08:24 Amlodipine Besylate (Norvasc) 5 mg DAILY GT 03/06/20 09:00 04/05/20 08:59 03/12/20 08:33 Artificial Tears (Akwa-Tears) 2 drop Q6H PRN BOTH EYES Dry Eyes 03/06/20 06:00 04/05/20 05:59 Atorvastatin Calcium (Lipitor) 10 mg BEDTIME GT 03/06/20 21:00 06/04/20 20:59 03/12/20 20:44 Docusate Sodium (Colace) 100 mg BID PRN GT Constipation 03/08/20 00:45 04/07/20 00:44 Famotidine (Pepcid) 20 mg TWICE A DAY GT 03/06/20 09:00 06/04/20 08:59 03/12/20 17:29 Heparin Sodium (Porcine) (Heparin 5000 units/ml) 5,000 units EVERY 12 HOURS SUBQ 03/06/20 09:00 04/20/20 08:59 03/12/20 20:54 Hydralazine HCl (Apresoline) 10 mg EVERY 6 HOURS GT 03/06/20 06:00 06/04/20 05:59 03/13/20 06:01 Ibuprofen (Advil) 400 mg Q6H PRN ORAL Moderate Pain (Pain Scale 4-6) 03/06/20 06:30 04/05/20 06:29 03/07/20 16:49 Lactulose (Cephulac) 20 gm EVERY 6 HOURS PRN GT Constipation 03/08/20 00:30 04/07/20 00:29 03/09/20 17:18 Levetiracetam (Keppra) 500 mg Q12HR GT 03/06/20 09:00 04/05/20 08:59 03/12/20 20:44 Magnesium Hydroxide (Mom) 30 ml BID PRN GT Constipation 03/08/20 00:45 04/07/20 00:44 Meropenem 1 gm/ Sodium Chloride 55 ml @ 110 mls/hr Q8HR IVPB 03/09/20 22:00 03/14/20 21:59 03/13/20 06:01 Polyethylene Glycol (Miralax) 17 gm DAILY PRN GT Constipation 03/08/20 00:30 04/07/20 00:29 Rifaximin (Xifaxan) 550 mg TWICE A DAY ORAL 03/06/20 09:00 03/13/20 08:59 03/12/20 17:30 Vancomycin HCl (Vanco pharmacy to dose) 1 ea DAILY PRN MISC . 03/09/20 10:30 04/08/20 10:29 Vancomycin/Sodium Chloride 275 ml @ 183.333 mls/hr Q8H IVPB 03/12/20 21:00 03/17/20 20:59 03/13/20 04:51 Vitamin D (Vitamin D) 5,000 intlu DAILY GT 03/07/20 09:00 04/06/20 08:59 03/12/20 08:32 Last 24 Hour Vital Signs Date Time Temp Pulse Resp B/P (MAP) Pulse Ox O2 Delivery O2 Flow Rate FiO2 03/13/20 06:01 126/76 03/13/20 04:00 98.4 90 21 152/78 (102) 98 03/13/20 04:00 Mechanical Ventilator 03/13/20 04:00 40 03/13/20 04:00 76 03/13/20 03:20 80 19 40 03/13/20 00:00 98.0 72 18 126/70 (88) 98 03/13/20 00:00 Mechanical Ventilator 03/13/20 00:00 77 03/12/20 23:33 126/70 03/12/20 23:15 80 14 40 03/12/20 20:00 79 03/12/20 20:00 98.3 77 17 144/87 (106) 97 03/12/20 20:00 Mechanical Ventilator 03/12/20 20:00 40 03/12/20 19:22 78 14 40 03/12/20 17:29 127/84 03/12/20 16:18 93 03/12/20 16:00 99.1 83 20 127/84 (98) 98 03/12/20 16:00 40 03/12/20 16:00 Mechanical Ventilator 03/12/20 15:15 83 19 40 03/12/20 12:07 143/82 03/12/20 12:00 40 03/12/20 12:00 Mechanical Ventilator 03/12/20 12:00 99.0 84 19 143/82 (102) 98 03/12/20 11:40 83 03/12/20 11:05 74 14 40 03/12/20 08:33 86 128/77 03/12/20 08:00 Mechanical Ventilator 03/12/20 08:00 40 03/12/20 08:00 84 03/12/20 08:00 98.7 86 16 128/77 (94) 99 03/12/20 07:15 74 12 40 03/12/20 05:08 145/85 03/12/20 04:09 98.4 78 19 133/78 (96) 100 03/12/20 04:00 40 03/12/20 04:00 76 03/12/20 04:00 Mechanical Ventilator 03/12/20 02:48 83 14 40 03/12/20 00:00 98.7 84 18 135/85 (102) 98 03/12/20 00:00 Mechanical Ventilator 03/12/20 00:00 83 03/11/20 23:19 135/85 03/11/20 22:58 75 15 40 03/11/20 20:00 72 03/11/20 20:00 Mechanical Ventilator 03/11/20 20:00 40 03/11/20 20:00 98.4 80 16 135/84 (101) 97 03/11/20 18:54 78 14 40 03/11/20 17:33 140/75 03/11/20 16:00 81 03/11/20 16:00 98.4 81 15 140/75 (96) 99 03/11/20 16:00 Mechanical Ventilator 03/11/20 16:00 40 03/11/20 15:47 84 7 40 03/11/20 15:24 77 03/11/20 14:00 87 10 98 Bi-Pap 100 03/11/20 12:45 130/81 03/11/20 12:00 98.7 75 16 130/81 (97) 100 03/11/20 12:00 Mechanical Ventilator 03/11/20 12:00 40 03/11/20 11:48 81 03/11/20 11:24 80 15 40 03/11/20 08:54 98.7 03/11/20 08:28 86 139/72 03/11/20 08:00 40 03/11/20 08:00 100.4 86 18 139/72 (94) 97 03/11/20 08:00 85 03/11/20 08:00 Mechanical Ventilator 03/11/20 07:28 84 19 40 Intake and Output 03/12/20 03/13/20 19:00 07:00 Intake Total 840 ml 1419.999 ml Output Total 600 ml 20 ml Balance 240 ml 1399.999 ml Intake Free Water 300 ml 100 ml IV Total 659.999 ml Tube Feeding 540 ml 660 ml Output Urine Total 600 ml 20 ml # Voids 2 # Bowel Movements 2 2 Labs Test 03/10/20 12:15 03/12/20 03:16 03/13/20 03:21 Vancomycin Level Trough 15.4 ug/mL (5.0-12.0) White Blood Count 14.2 K/UL (4.8-10.8) 14.0 K/UL (4.8-10.8) Red Blood Count 3.92 M/UL (4.20-5.40) 3.88 M/UL (4.20-5.40) Hemoglobin 12.0 G/DL (12.0-16.0) 12.0 G/DL (12.0-16.0) Hematocrit 36.0 % (37.0-47.0) 35.8 % (37.0-47.0) Mean Corpuscular Volume 92 FL (80-99) 92 FL (80-99) Mean Corpuscular Hemoglobin 30.5 PG (27.0-31.0) 30.8 PG (27.0-31.0) Mean Corpuscular Hemoglobin Concent 33.2 G/DL (32.0-36.0) 33.4 G/DL (32.0-36.0) Red Cell Distribution Width 12.1 % (11.6-14.8) 12.5 % (11.6-14.8) Platelet Count 318 K/UL (150-450) 337 K/UL (150-450) Mean Platelet Volume 5.6 FL (6.5-10.1) 6.1 FL (6.5-10.1) Neutrophils (%) (Auto) 68.0 % (45.0-75.0) 63.3 % (45.0-75.0) Lymphocytes (%) (Auto) 23.7 % (20.0-45.0) 27.6 % (20.0-45.0) Monocytes (%) (Auto) 4.6 % (1.0-10.0) 5.4 % (1.0-10.0) Eosinophils (%) (Auto) 1.8 % (0.0-3.0) 1.7 % (0.0-3.0) Basophils (%) (Auto) 1.9 % (0.0-2.0) 2.0 % (0.0-2.0) Sodium Level 138 MMOL/L (136-145) 139 MMOL/L (136-145) Potassium Level 4.1 MMOL/L (3.5-5.1) 4.2 MMOL/L (3.5-5.1) Chloride Level 102 MMOL/L (98-107) 102 MMOL/L (98-107) Carbon Dioxide Level 36 MMOL/L (21-32) 38 MMOL/L (21-32) Anion Gap 0 mmol/L (5-15) -1 mmol/L (5-15) Blood Urea Nitrogen 11 mg/dL (7-18) 12 mg/dL (7-18) Creatinine 0.5 MG/DL (0.55-1.30) 0.6 MG/DL (0.55-1.30) Estimat Glomerular Filtration Rate > 60 mL/min (>60) > 60 mL/min (>60) Glucose Level 195 MG/DL (74-106) 199 MG/DL (74-106) Calcium Level 9.3 MG/DL (8.5-10.1) 9.4 MG/DL (8.5-10.1) Total Bilirubin 0.2 MG/DL (0.2-1.0) Aspartate Amino Transf (AST/SGOT) 11 U/L (15-37) Alanine Aminotransferase (ALT/SGPT) 22 U/L (12-78) Alkaline Phosphatase 71 U/L (46-116) Total Protein 6.4 G/DL (6.4-8.2) Albumin 2.7 G/DL (3.4-5.0) Globulin 3.7 g/dL Albumin/Globulin Ratio 0.7 (1.0-2.7) Height (Feet): 5 Height (Inches): 3.00 Weight (Pounds): 168 Objective PE HEENT: Pupils were round, equal, and reactive to light. Sclerae was white. . ENT, mucous membranes were not dehydrated. NECK: Supple. There was no goiter. No mass. ++ trach/vent LUNGS: Clear with decreased breath sounds in both bases HEART: There was normal S1 and normal S2. ABDOMEN: Soft. Nontender without organomegaly. ++ peg EXTREMITIES: No cyanosis, no clubbing, and no edema NEURO: obtunded Asael Raman MD Mar 13, 2020 06:47
--- NOTE | 2020-03-13 07:00 | NUR ---
NURSE HAND-OFF REPORT: Important Events on Shift: Pt stable, reinserted IV site on Left wrist g22. Still on isolation Patient Status: Stable Diet: Vital AF 1.2 @60cc/hr Pending Orders: None Pending Results/Labs: None Pending MD notification :None Latest Vital Signs: Temperature 98.4 , Pulse 76 , B/P 126 /76 , Respiratory Rate 21 , O2 SAT 98 , Mechanical Ventilator, O2 Flow Rate 40.0 . Vital Sign Comment: WNL EKG Rhythm: Sinus Rhythm Rhythm change?: N MD Notified?: - MD Response: Latest Schmidt Fall Score: 70 Fall Risk: High Risk Safety Measures: Call light Within Reach, Bed Alarm Zone 1, Side Rails Side Rails x3, Bed position Low and Locked. Fall Precautions: Yellow Gown Patient Fall Education Report given to [AUGIE Lopez].
--- NOTE | 2020-03-13 07:10 | NUR ---
NURSE NOTES: Received pt from AUGIE Worley. Pt VS stable at this time. Pt alert to name and place. Pt able to follow command and withdraws all ext. Pt communicates with movement and nodding/shaking head. pt has right side weakness from previous CVA. Full range of motion in left arm with slight tremor noted. left eye cloudy. Right facial droop. Dysphagia. Pt unable to swallow secretions. Sputum noted on her chin. Pt able to use a towel to clean her mouth. Trach to ventilator with setting SIMV PS 10, FiO2 40%, PEEP 5. Gastrostomy tube noted. Dressing dry and intact. Patent and running Vital at 60mL/hr. NO residual noted. Pt incontinent of urine and stool. Purewick in place. Left forearm IV noted. Blood noted at IV insertion site. IV removed at this time. Left hand PIV 22 gauge noted on left hand. Patent and dressing intact. Ecchymosis noted at insertion site. Will continue to monitor. Skin intact. Bed in low position with bed alarm on and call light in reach. ORal care and repositioning done.
[2020-03-13 08:00] VITALS: BP 108/64
[2020-03-13] MEDS: levETIRAcetam 500mg/5ml Liquid GT SCH ×2 (08:59→21:14)
[2020-03-13] MEDS: Vitamin D 1000 IU Tab GT SCH (08:59)
[2020-03-13] MEDS: Heparin 5000 units/ml inj SUBQ SCH ×2 (09:43→21:13)
[2020-03-13 11:26] VITALS: BP 143/86
--- NOTE | 2020-03-13 12:00 | NUR ---
NURSE NOTES: Pt VS stable at this time. Mentation unchanged. Trach to ventilator with setting SIMV PS 10, FiO2 40%, PEEP 5. Gastrostomy tube patent and running Vital at 60mL/hr. NO residual noted. Purewick and under pad replaced. Bed bath done. Left hand PIV 22 gauge patent and dressing intact. Bed in low position with bed alarm on and call light in reach. ORal care and repositioning done.
--- NOTE | 2020-03-13 12:55 | Surgery Progress Note ---
Surgery Progress Note Subjective Symptoms: improved, tolerating diet, voiding well, passing flatus Additional Comments on oxygen comfortable no n/v Objective Last 24 Hour Vital Signs Date Time Temp Pulse Resp B/P (MAP) Pulse Ox O2 Delivery O2 Flow Rate FiO2 03/13/20 12:00 40 03/13/20 12:00 Mechanical Ventilator 03/13/20 11:26 99.0 73 14 143/86 (105) 97 03/13/20 11:23 143/86 03/13/20 10:50 85 18 40 03/13/20 09:00 83 108/64 03/13/20 08:00 73 03/13/20 08:00 Mechanical Ventilator 03/13/20 08:00 40 03/13/20 08:00 99.0 83 15 108/64 (79) 100 03/13/20 07:20 83 14 40 03/13/20 06:01 126/76 03/13/20 04:00 98.4 90 21 152/78 (102) 98 03/13/20 04:00 Mechanical Ventilator 03/13/20 04:00 40 03/13/20 04:00 76 03/13/20 03:20 80 19 40 03/13/20 00:00 98.0 72 18 126/70 (88) 98 03/13/20 00:00 Mechanical Ventilator 03/13/20 00:00 77 03/12/20 23:33 126/70 03/12/20 23:15 80 14 40 03/12/20 20:00 79 03/12/20 20:00 98.3 77 17 144/87 (106) 97 03/12/20 20:00 Mechanical Ventilator 03/12/20 20:00 40 03/12/20 19:22 78 14 40 03/12/20 17:29 127/84 03/12/20 16:18 93 03/12/20 16:00 99.1 83 20 127/84 (98) 98 03/12/20 16:00 40 03/12/20 16:00 Mechanical Ventilator 03/12/20 15:15 83 19 40 I&O Intake and Output 03/12/20 03/13/20 19:00 07:00 Intake Total 840 ml 1419.999 ml Output Total 600 ml 20 ml Balance 240 ml 1399.999 ml Intake Free Water 300 ml 100 ml IV Total 659.999 ml Tube Feeding 540 ml 660 ml Output Urine Total 600 ml 20 ml # Voids 2 # Bowel Movements 2 2 Dressing: saturated Cardiovascular: RSR Respiratory: decreased breath sounds Abdomen: soft, non-tender, present bowel sounds, non-distended Extremities: no edema, no tenderness, no cyanosis Laboratory Tests Test 03/13/20 03:21 White Blood Count 14.0 K/UL (4.8-10.8) H Red Blood Count 3.88 M/UL (4.20-5.40) L Hemoglobin 12.0 G/DL (12.0-16.0) Hematocrit 35.8 % (37.0-47.0) L Mean Corpuscular Volume 92 FL (80-99) Mean Corpuscular Hemoglobin 30.8 PG (27.0-31.0) Mean Corpuscular Hemoglobin Concent 33.4 G/DL (32.0-36.0) Red Cell Distribution Width 12.5 % (11.6-14.8) Platelet Count 337 K/UL (150-450) Mean Platelet Volume 6.1 FL (6.5-10.1) L Neutrophils (%) (Auto) 63.3 % (45.0-75.0) Lymphocytes (%) (Auto) 27.6 % (20.0-45.0) Monocytes (%) (Auto) 5.4 % (1.0-10.0) Eosinophils (%) (Auto) 1.7 % (0.0-3.0) Basophils (%) (Auto) 2.0 % (0.0-2.0) Sodium Level 139 MMOL/L (136-145) Potassium Level 4.2 MMOL/L (3.5-5.1) Chloride Level 102 MMOL/L (98-107) Carbon Dioxide Level 38 MMOL/L (21-32) H Anion Gap -1 mmol/L (5-15) L Blood Urea Nitrogen 12 mg/dL (7-18) Creatinine 0.6 MG/DL (0.55-1.30) Estimat Glomerular Filtration Rate > 60 mL/min (>60) Glucose Level 199 MG/DL (74-106) H Calcium Level 9.4 MG/DL (8.5-10.1) Plan Problems: (1) Sepsis Assessment & Plan: 51-year-old female multi medical committees care dependent trach PEG who has a leukocytosis lactic acidosis sepsis admitted further care and management tracheal secretions identified trachea stable. COVID has been negative on both PCR and standard test. On antibiotics microbiology noted. No acute surgical intervention indicated recommended at this time. The tracheostomy stable and unlikely etiology and she is ventilating well throughout. Secretions likely from a potential pneumonia but the chest x-ray was identified. Nutritional optimization continue tube feeds will monitor and continue to follow with recommendations (2) UTI (urinary tract infection) Assessment & Plan: abx as per pcp (3) Pneumonia (4) Cardiac arrest (5) Anemia (6) Diarrhea (7) Abdominal pain (8) Nosocomial pneumonia (9) Feeding by G-tube Assessment & Plan: tube okay cont feeds supplements meds okay DAILY ESTIMATED NEEDS: Needs based on Critical care 58kg abw 22-28 kcals/kg 5786-1092 total kcals 1.2-2 g protein/kg 70-116 g total protein 25-30 mL/kg 1745-3346 total fluid mLs NUTRITION DIAGNOSIS: Swallowing difficulty r/t respiratory status as evidenced by pt is vent dep via trach w/ PEG. CURRENT TF:VITAL AF 1.2 @ 60ml/hr x 20 hrs ENTERAL NUTRITION RECOMMENDATIONS: VITAL AF 1.2 @ 60ml/hr x 20 hrs to provide 1200ml, 1440kcal, 90g prot, 973ml free water - Rec Vital AF: pt on elemental (and soy based) formula of Vivonex [employer] REFEREE Per EMR, pt allergic to milk, unknown true allergy. Pt w/ good tolerance to Vital AF last admission in July 2018 without any side effects. Monitor for any signs of intolerance w/ Vital AF. It is also carb controlled (A1C 7.2). - Maintain TRAFFIC [employer] REFEREE TF run time to x20 hrs for good TF tolerance - Continue goal rate of 60ml/hr x 20 hrs -> meets 100% est kcal/prot needs - Water flush of 120ml q 4 hrs - HOB over 30 degrees ADDITIONAL RECOMMENDATIONS: 1) MONITOR FOR SIGNS OF INTOLERANCE TO FORMULA VITAL AF PT ON SOY BASED FORMULA @ SNF, PT TOLERATED VITAL AF WELL LAST ADM 2) Per SNF: HT=62" and TJ=975pop (03/04/20) vs EMR wt =168lbs -> daily calibrated bedscale wt 3) Monitor lytes, replete as needed 4) NISS for BG control: A1C 7.2, elev BGs (10) Acute on chronic respiratory failure Saman Bruce Mar 13, 2020 12:55
--- NOTE | 2020-03-13 13:48 | Infectious Diseases Prog Note ---
Assessment/Plan Assessment: Severe Sepsis UTI -03/08 CXR: Unchanged left basilar likely infiltrate and pleural fluid, over 2 days -03/06 u/a wbc tnct, nit +, leuk +3; ucx >100k C. koseri (I macrobid; otherwise S) PNA -03/12 CXR: There is been interval worsening of left lower lobe pneumonia with increasing mild left pleural effusion. -03/10 sp cx GNR -03/06 CXR: Retrocardiac opacity may represent the left hemidiaphragm. Staph bacteremia- likely contaminant -03/06 Bcx 06/05 S. epi, 06/05 S hominis; 03/11 Bcx p Fever, SP Leukocytosis, increased- now improving COVID19 (dx'ed 03/02) vs false positive -03/02 COVID PCR + at [facility]; repeat neg x3 (03/06& rapid COVID PCR neg x1, 03/07 SARS-COV2 PCR neg) Hx of PNA 08/2018 -sp cx MDR ABC (I Ceftazidime; S Amikacin), PsA (arce S); 08/24 sp cx S.marcenses (R ancef otherwise S); 08/28 S. marcescens(R ancef; otherwise S) Hx of UTI 07/2018 -08/29 u/a wbc tnct; ucx ESBL K. pna (S amikacin, ertapanem; R tigecycline) GERD, Vit D Def CAD/WA Dm2 asthma hx of cardiac arrest cerebral hemorrhage w/ residual significant aphasia and R hemiplegia HLD HTN bed bound seizure disorder chronic resp failure s/p trach/vent Dysphagia s/p PEG SNF resident ([facility]) Plan: -Dc empiric IV Vancomycin #8 -continue empiric Meropenem #4 (abx d #8) pending sp cx -03/08 SP Zosyn #3 -03/06 SP Ceftriaxone x1, Azithromycin x1 -f/u cx -Monitor CBC/CMP, temperatures -f/u sp cx -f/u repeat Bcx x2 Thank you for this consultation. Will continue to follow along with you. Discussed with RN ad micro staff. Subjective Allergies: Coded Allergies: MILK (Verified Allergy, Unknown, 08/16/18) afebrile >48hrs wbc improved Objective Last 24 Hour Vital Signs Date Time Temp Pulse Resp B/P (MAP) Pulse Ox O2 Delivery O2 Flow Rate FiO2 03/13/20 12:00 40 03/13/20 12:00 Mechanical Ventilator 03/13/20 11:26 99.0 73 14 143/86 (105) 97 03/13/20 11:23 143/86 03/13/20 10:50 85 18 40 03/13/20 09:00 83 108/64 03/13/20 08:00 73 03/13/20 08:00 Mechanical Ventilator 03/13/20 08:00 40 03/13/20 08:00 99.0 83 15 108/64 (79) 100 03/13/20 07:20 83 14 40 03/13/20 06:01 126/76 03/13/20 04:00 98.4 90 21 152/78 (102) 98 03/13/20 04:00 Mechanical Ventilator 03/13/20 04:00 40 03/13/20 04:00 76 03/13/20 03:20 80 19 40 03/13/20 00:00 98.0 72 18 126/70 (88) 98 03/13/20 00:00 Mechanical Ventilator 03/13/20 00:00 77 03/12/20 23:33 126/70 03/12/20 23:15 80 14 40 03/12/20 20:00 79 03/12/20 20:00 98.3 77 17 144/87 (106) 97 03/12/20 20:00 Mechanical Ventilator 03/12/20 20:00 40 03/12/20 19:22 78 14 40 03/12/20 17:29 127/84 03/12/20 16:18 93 03/12/20 16:00 99.1 83 20 127/84 (98) 98 03/12/20 16:00 40 03/12/20 16:00 Mechanical Ventilator 03/12/20 15:15 83 19 40 Height (Feet): 5 Height (Inches): 3.00 Weight (Pounds): 168 Cardiovascular: RSR Respiratory: decreased breath sounds Abdomen: soft, non-tender, present bowel sounds Extremities: no tenderness, no cyanosis Microbiology Date/Time Source Procedure Growth Status 03/10/20 16:00 Sputum Gram Stain - Final Resulted 03/10/20 16:00 Sputum Culture - Preliminary Gram Negative Sumit Resulted Laboratory Tests Test 03/13/20 03:21 White Blood Count 14.0 K/UL (4.8-10.8) H Red Blood Count 3.88 M/UL (4.20-5.40) L Hemoglobin 12.0 G/DL (12.0-16.0) Hematocrit 35.8 % (37.0-47.0) L Mean Corpuscular Volume 92 FL (80-99) Mean Corpuscular Hemoglobin 30.8 PG (27.0-31.0) Mean Corpuscular Hemoglobin Concent 33.4 G/DL (32.0-36.0) Red Cell Distribution Width 12.5 % (11.6-14.8) Platelet Count 337 K/UL (150-450) Mean Platelet Volume 6.1 FL (6.5-10.1) L Neutrophils (%) (Auto) 63.3 % (45.0-75.0) Lymphocytes (%) (Auto) 27.6 % (20.0-45.0) Monocytes (%) (Auto) 5.4 % (1.0-10.0) Eosinophils (%) (Auto) 1.7 % (0.0-3.0) Basophils (%) (Auto) 2.0 % (0.0-2.0) Sodium Level 139 MMOL/L (136-145) Potassium Level 4.2 MMOL/L (3.5-5.1) Chloride Level 102 MMOL/L (98-107) Carbon Dioxide Level 38 MMOL/L (21-32) H Anion Gap -1 mmol/L (5-15) L Blood Urea Nitrogen 12 mg/dL (7-18) Creatinine 0.6 MG/DL (0.55-1.30) Estimat Glomerular Filtration Rate > 60 mL/min (>60) Glucose Level 199 MG/DL (74-106) H Calcium Level 9.4 MG/DL (8.5-10.1) Current Medications Medications (Trade) Dose Ordered Sig/Marzena Route PRN Reason Start Time Stop Time Status Last Admin Dose Admin Acetaminophen (Tylenol) 650 mg Q4H PRN GT Temp >100.5 03/08/20 00:45 04/07/20 00:44 03/11/20 08:24 Amlodipine Besylate (Norvasc) 5 mg DAILY GT 03/06/20 09:00 04/05/20 08:59 03/13/20 09:00 Artificial Tears (Akwa-Tears) 2 drop Q6H PRN BOTH EYES Dry Eyes 03/06/20 06:00 04/05/20 05:59 Atorvastatin Calcium (Lipitor) 10 mg BEDTIME GT 03/06/20 21:00 06/04/20 20:59 03/12/20 20:44 Docusate Sodium (Colace) 100 mg BID PRN GT Constipation 03/08/20 00:45 04/07/20 00:44 Famotidine (Pepcid) 20 mg TWICE A DAY GT 03/06/20 09:00 06/04/20 08:59 03/13/20 08:59 Heparin Sodium (Porcine) (Heparin 5000 units/ml) 5,000 units EVERY 12 HOURS SUBQ 03/06/20 09:00 04/20/20 08:59 03/13/20 09:43 Hydralazine HCl (Apresoline) 10 mg EVERY 6 HOURS GT 03/06/20 06:00 06/04/20 05:59 03/13/20 11:23 Ibuprofen (Advil) 400 mg Q6H PRN ORAL Moderate Pain (Pain Scale 4-6) 03/06/20 06:30 04/05/20 06:29 03/07/20 16:49 Lactulose (Cephulac) 20 gm EVERY 6 HOURS PRN GT Constipation 03/08/20 00:30 04/07/20 00:29 03/09/20 17:18 Levetiracetam (Keppra) 500 mg Q12HR GT 03/06/20 09:00 04/05/20 08:59 03/13/20 08:59 Magnesium Hydroxide (Mom) 30 ml BID PRN GT Constipation 03/08/20 00:45 04/07/20 00:44 Meropenem 1 gm/ Sodium Chloride 55 ml @ 110 mls/hr Q8HR IVPB 03/09/20 22:00 03/14/20 21:59 03/13/20 06:01 Polyethylene Glycol (Miralax) 17 gm DAILY PRN GT Constipation 03/08/20 00:30 04/07/20 00:29 Vancomycin HCl (Vanco pharmacy to dose) 1 ea DAILY PRN MISC . 03/09/20 10:30 04/08/20 10:29 Vancomycin/Sodium Chloride 275 ml @ 183.333 mls/hr Q8H IVPB 03/12/20 21:00 03/17/20 20:59 03/13/20 12:49 Vitamin D (Vitamin D) 5,000 intlu DAILY GT 03/07/20 09:00 04/06/20 08:59 03/13/20 08:59 Yeny Webb M.D. Mar 13, 2020 13:48
--- NOTE | 2020-03-13 15:39 | NUR ---
NURSE NOTES: Dr Webb rounded on the pt. Update given.
[2020-03-13 16:00] VITALS: BP 130/64
--- NOTE | 2020-03-13 16:26 | NUR ---
CASE MANAGEMENT: REVIEW SI: PNA . UTI . SEPSIS T 99.0 HR 73 RR 14 BP 143/86 SAT 97% MECH VENT FIO2 40 WBC 14.0 GLUCOSE 199 IS: RIFAXIMIN GT QHS KEPPRA GT Q12HR HEPARIN SUBQ Q12HR VANCOMYCIN IV Q8HR MEROPENEM IV Q8HR STEP DOWN UNIT STATUS DCP: PATIENT IS FROM [facility]
--- NOTE | 2020-03-13 18:58 | Diagnostic Imaging Report ---
Indication: Shortness of breath Technique: One view of the chest Comparison: 03/12/2020 Findings: Left basilar opacity likely reflects pleural fluid, possibly some consolidation as well, unchanged. Right lung pleural space remain clear. Tracheostomy again demonstrated Impression: Unchanged left basilar infiltrate and likely pleural fluid
--- NOTE | 2020-03-13 19:13 | NUR ---
RESPIRATORY NOTE: Received pt on VOL SIMV 10, 500VT, PS 10, PEEP +5, 40%. Pt is trach-dependent w/ a Cuffed, Portex 7 tube. Pt is alert/awake, follows commands. B/S merlin. rhonchi, sxn small to moderate amounts of thick/thin, pale-yellow secretions. Vent plugged into red outlet, ambubag at bedside. Pt resting comfortably, in no apparent distress at this time. Will continue plan of care.
--- NOTE | 2020-03-13 19:25 | NUR ---
NURSE NOTES: Received patient from AUGIE Lopez under the care of Dr. Fox for the admitting dx. of SOB, and Covid (+) status. Patient noted with allergies to milk and full code status. On continuing isolation for PUI status, because of febrile status in the morning. Fall, aspiration and seizure precaution observed and maintained at all times. Room safety check and ventilation safety check performed. No apparent distress or discomfort noted on patient. Will continue with current plan of care.
--- NOTE | 2020-03-13 19:27 | NUR ---
HAND-OFF: Report given to AUGIE Joseph.
[2020-03-13 20:00] VITALS: BP 127/89
--- NOTE | 2020-03-13 20:14 | General Progress Note ---
Subjective Constitutional: Reports: no symptoms HEENT: Reports: no symptoms Cardiovascular: Reports: no symptoms Respiratory: Reports: no symptoms Gastrointestinal/Abdominal: Reports: no symptoms Hematologic/Lymphatic: Reports: no symptoms Allergies: Coded Allergies: MILK (Verified Allergy, Unknown, 08/16/18) Objective Last 24 Hour Vital Signs Date Time Temp Pulse Resp B/P (MAP) Pulse Ox O2 Delivery O2 Flow Rate FiO2 03/13/20 19:10 76 19 40 03/13/20 17:52 130/64 03/13/20 16:49 Mechanical Ventilator 03/13/20 16:00 98.7 76 16 130/64 (86) 96 03/13/20 16:00 81 03/13/20 16:00 40 03/13/20 14:42 82 14 40 03/13/20 12:00 40 03/13/20 12:00 Mechanical Ventilator 03/13/20 12:00 74 03/13/20 11:26 99.0 73 14 143/86 (105) 97 03/13/20 11:23 143/86 03/13/20 10:50 85 18 40 03/13/20 09:00 83 108/64 03/13/20 08:00 73 03/13/20 08:00 Mechanical Ventilator 03/13/20 08:00 40 03/13/20 08:00 99.0 83 15 108/64 (79) 100 03/13/20 07:20 83 14 40 03/13/20 06:01 126/76 03/13/20 04:00 98.4 90 21 152/78 (102) 98 03/13/20 04:00 Mechanical Ventilator 03/13/20 04:00 40 03/13/20 04:00 76 03/13/20 03:20 80 19 40 03/13/20 00:00 98.0 72 18 126/70 (88) 98 03/13/20 00:00 Mechanical Ventilator 03/13/20 00:00 77 03/12/20 23:33 126/70 03/12/20 23:15 80 14 40 Intake and Output 03/12/20 03/13/20 19:00 07:00 Intake Total 840 ml 1534.999 ml Output Total 600 ml 20 ml Balance 240 ml 1514.999 ml Intake Free Water 300 ml 100 ml IV Total 714.999 ml Tube Feeding 540 ml 720 ml Output Urine Total 600 ml 20 ml # Voids 2 # Bowel Movements 2 2 Laboratory Tests 03/13/20 03:21: White Blood Count 14.0H, Red Blood Count 3.88L, Hemoglobin 12.0, Hematocrit 35.8L, Mean Corpuscular Volume 92, Mean Corpuscular Hemoglobin 30.8, Mean Corpuscular Hemoglobin Concent 33.4, Red Cell Distribution Width 12.5, Platelet Count 337, Mean Platelet Volume 6.1L, Neutrophils (%) (Auto) 63.3, Lymphocytes (%) (Auto) 27.6, Monocytes (%) (Auto) 5.4, Eosinophils (%) (Auto) 1.7, Basophils (%) (Auto) 2.0, Sodium Level 139, Potassium Level 4.2, Chloride Level 102, Carbon Dioxide Level 38H, Anion Gap -1L, Blood Urea Nitrogen 12, Creatinine 0.6, Estimat Glomerular Filtration Rate > 60, Glucose Level 199H, Calcium Level 9.4 Height (Feet): 5 Height (Inches): 3.00 Weight (Pounds): 168 General Appearance: WD/WN, no apparent distress, alert, confused EENT: normal ENT inspection Neck: supple Cardiovascular: normal rate, regular rhythm, no gallop/murmur, no JVD Respiratory/Chest: lungs clear, no respiratory distress, no accessory muscle use, decreased breath sounds, rhonchi - left Abdomen: normal bowel sounds, non tender, soft, no organomegaly, no mass Extremities: non-tender Neurologic: alert, responsive Assessment/Plan Status Narrative Patient is awake alert afebrile hemodynamically stable and her WBC remains at 14,000 level did not change really in the last 48 hours patient was switched from Zosyn vancomycin both empiric to meropenem stop She appears clinically stable without cough or without frequent cough and without sputum production. A chest x-ray was unchanged now for several days serial culture will gram-negative silvia We will follow the WBCs and vital signs tomorrow in order to assess with patient need still another antibiotic Repeat laboratory tests will be done in a.. Karissa Turcios MD, MD Mar 13, 2020 20:14
--- NOTE | 2020-03-13 21:00 | NUR ---
NURSE NOTES: Patient noted awake and alert watching TV. Able to follow commands and is on a cooperative disposition. Noted to have ST on the radiologic technologist mammogram, but otherwise benign. Has portex 7 trach size with vent settings of SIMV/IMV-10, TV-500, FiO2-40%, PEEP-5 PS-10. Patient appears to be tolerating vent settings well as saturation is noted to be 98% with no apparent signs of distress or discomfort at this time. GT is flushing well, with residuals noted to be 5cc. On Vital AF 1.2 at 60cc/hr and tolerating well. Patient is incontinent with purewick present and intact. L wrist/hand 20ga noted TKO. IV site benign and no redness, irritation, or infiltration noted at this time. Will continue with current plan of care.
--- NOTE | 2020-03-13 23:00 | NUR ---
NURSE NOTES: Patient awake and watching TV. Appears to be tolerating vent settings well as saturation is noted to be 97% with no apparent signs of distress or discomfort at this time. FLACC score of 0/10 noted. L hand/wrist 22ga noted with MD orders TKO. IV site benign and no redness, irritation, or infiltration noted at this time. Turned and repositioned according to turn schedule. Will continue with current plan of care.
[2020-03-14] VITALS: BP 128/85
--- NOTE | 2020-03-14 03:00 | NUR ---
NURSE NOTES: Patient asleep and resting well. FLACC score of 0/10 noted. No apparent distress or discomfort noted. IV sites benign and no redness, irritation, or infiltration noted at this time. Patient appears to be tolerating vent settings well as saturation is noted to be 99%. Turned and repositioned according to turn schedule. Bed locked and alarm armed. Safety checks performed and maintained at all times. Will continue with current plan of care.
[2020-03-14 04:00] VITALS: BP 128/82
--- NOTE | 2020-03-14 05:00 | NUR ---
NURSE NOTES: Patient still asleep and resting well. FLACC score of 0/10 noted. No apparent distress or discomfort noted. IV sites benign and no redness, irritation, or infiltration noted at this time. Patient appears to be tolerating vent settings well as saturation is noted to be 99%. Turned and repositioned according to turn schedule. Kept clean and dry at all times. Bed locked and alarm armed. Safety checks performed and maintained at all times. Will continue with current plan of care.
[2020-03-14] MEDS: HydrALAZINE 10mg Tab GT SCH ×4 (06:04→23:11)
[2020-03-14] MEDS: Meropenem 1 GM in NS 55 ML IVPB SCH ×3 (06:04→21:27)
--- NOTE | 2020-03-14 06:43 | Hematology/Onc Progress Note ---
Assessment/Plan Assessment/Plan Assessment/Plan # Leukocytosis with likely due to uti/bacteremia --> has not received steriods --> trend 12-->13-->11-->15-->16-->14 --> smear reviewed, no major abnml noted --> on abx as per id zosyn/vanc->vanc/bartolome # Anemia of chronic disease due to underlying chronic medical issues, multifactorial --> Anemia workup only if hgb <10 --> No evidence of hemolysis is noted, peripheral smear has been reviewed. --> Hgb goal >7. Transfuse prn. 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 Greatly appreciate consultation! Subjective Constitutional: Denies: no symptoms, chills, fever, malaise, weakness, other HEENT: Denies: no symptoms, eye pain, blurred vision, tearing, double vision, ear pain, ear discharge, nose pain, nose congestion, throat pain, throat swelling, mouth pain, mouth swelling, other Cardiovascular: Denies: no symptoms, chest pain, edema, irregular heart rate, lightheadedness, palpitations, syncope, other Respiratory: Denies: no symptoms, cough, shortness of breath, SOB with excertion, SOB at rest, sputum, wheezing, other Gastrointestinal/Abdominal: Denies: no symptoms, abdomen distended, abdominal pain, black stools, tarry stools, blood in stool, constipated, diarrhea, difficulty swallowing, nausea, poor appetite, poor fluid intake, rectal bleeding, vomiting, other Genitourinary: Denies: no symptoms, burning, discharge, frequency, flank pain, hematuria, incontinence, pain, urgency, other Neurologic/Psychiatric: Denies: no symptoms, anxiety, depressed, emotional problems, headache, numbness, paresthesia, pre-existing deficit, seizure, tingling, tremors, weakness, other Endocrine: Denies: no symptoms, excessive sweating, flushing, intolerance to cold, intolerance to heat, increased hunger, increased thirst, increased urine, unexplained weight gain, unexplained weight loss, other Hematologic/Lymphatic: Denies: no symptoms, anemia, easy bleeding, easy bruising, adenopathy, other Allergies: Coded Allergies: MILK (Verified Allergy, Unknown, 08/16/18) Subjective 03/09 obtunded, no major changes, dw rn, labs noted 03/10 tolerating vent, with no bleeding, michaela rn, no major changes 03/11: saturation level is stable, awake. 03/12 awake, alert, no bleeding, labs reviewed, comfortable, michaela rn 03/13 comfortable, a+o x1, no bleeding, on abx broad spec, no bleeding 03/14 labs reviewed, no bleeding, michaela rn, remains on abx Objective Objective Current Medications Medications (Trade) Dose Ordered Sig/Marzena Route PRN Reason Start Time Stop Time Status Last Admin Dose Admin Acetaminophen (Tylenol) 650 mg Q4H PRN GT Temp >100.5 03/08/20 00:45 04/07/20 00:44 03/11/20 08:24 Amlodipine Besylate (Norvasc) 5 mg DAILY GT 03/06/20 09:00 04/05/20 08:59 03/13/20 09:00 Artificial Tears (Akwa-Tears) 2 drop Q6H PRN BOTH EYES Dry Eyes 03/06/20 06:00 04/05/20 05:59 Atorvastatin Calcium (Lipitor) 10 mg BEDTIME GT 03/06/20 21:00 06/04/20 20:59 03/13/20 21:14 Docusate Sodium (Colace) 100 mg BID PRN GT Constipation 03/08/20 00:45 04/07/20 00:44 Famotidine (Pepcid) 20 mg TWICE A DAY GT 03/06/20 09:00 06/04/20 08:59 03/13/20 17:52 Heparin Sodium (Porcine) (Heparin 5000 units/ml) 5,000 units EVERY 12 HOURS SUBQ 03/06/20 09:00 04/20/20 08:59 03/13/20 21:13 Hydralazine HCl (Apresoline) 10 mg EVERY 6 HOURS GT 03/06/20 06:00 06/04/20 05:59 03/14/20 06:04 Ibuprofen (Advil) 400 mg Q6H PRN ORAL Moderate Pain (Pain Scale 4-6) 03/06/20 06:30 04/05/20 06:29 03/07/20 16:49 Lactulose (Cephulac) 20 gm EVERY 6 HOURS PRN GT Constipation 03/08/20 00:30 04/07/20 00:29 03/09/20 17:18 Levetiracetam (Keppra) 500 mg Q12HR GT 03/06/20 09:00 04/05/20 08:59 03/13/20 21:14 Magnesium Hydroxide (Mom) 30 ml BID PRN GT Constipation 03/08/20 00:45 04/07/20 00:44 Meropenem 1 gm/ Sodium Chloride 55 ml @ 110 mls/hr Q8HR IVPB 03/09/20 22:00 03/14/20 21:59 03/14/20 06:04 Polyethylene Glycol (Miralax) 17 gm DAILY PRN GT Constipation 03/08/20 00:30 04/07/20 00:29 Rifaximin (Xifaxan) 550 mg TWICE A DAY ORAL 03/13/20 18:00 03/20/20 17:59 03/13/20 17:52 Vitamin D (Vitamin D) 5,000 intlu DAILY GT 03/07/20 09:00 04/06/20 08:59 03/13/20 08:59 Last 24 Hour Vital Signs Date Time Temp Pulse Resp B/P (MAP) Pulse Ox O2 Delivery O2 Flow Rate FiO2 03/14/20 06:04 128/82 03/14/20 04:00 99.4 79 16 128/82 (97) 99 03/14/20 04:00 Mechanical Ventilator 03/14/20 04:00 73 03/14/20 04:00 40 03/14/20 03:35 73 16 40 03/14/20 00:01 Mechanical Ventilator 03/14/20 00:00 99.0 76 14 128/85 (99) 99 03/13/20 23:58 128/85 03/13/20 23:19 81 13 40 03/13/20 20:00 99.2 82 14 127/89 (102) 98 03/13/20 20:00 40 03/13/20 20:00 Mechanical Ventilator 03/13/20 20:00 84 03/13/20 19:10 76 19 40 03/13/20 17:52 130/64 03/13/20 16:49 Mechanical Ventilator 03/13/20 16:00 98.7 76 16 130/64 (86) 96 03/13/20 16:00 81 03/13/20 16:00 40 03/13/20 14:42 82 14 40 03/13/20 12:00 40 03/13/20 12:00 Mechanical Ventilator 03/13/20 12:00 74 03/13/20 11:26 99.0 73 14 143/86 (105) 97 03/13/20 11:23 143/86 03/13/20 10:50 85 18 40 03/13/20 09:00 83 108/64 03/13/20 08:00 73 03/13/20 08:00 Mechanical Ventilator 03/13/20 08:00 40 03/13/20 08:00 99.0 83 15 108/64 (79) 100 03/13/20 07:20 83 14 40 03/13/20 06:01 126/76 03/13/20 04:00 98.4 90 21 152/78 (102) 98 03/13/20 04:00 Mechanical Ventilator 03/13/20 04:00 40 03/13/20 04:00 76 03/13/20 03:20 80 19 40 03/13/20 00:00 98.0 72 18 126/70 (88) 98 03/13/20 00:00 Mechanical Ventilator 03/13/20 00:00 77 03/12/20 23:33 126/70 03/12/20 23:15 80 14 40 03/12/20 20:00 79 03/12/20 20:00 98.3 77 17 144/87 (106) 97 03/12/20 20:00 Mechanical Ventilator 03/12/20 20:00 40 03/12/20 19:22 78 14 40 03/12/20 17:29 127/84 03/12/20 16:18 93 03/12/20 16:00 99.1 83 20 127/84 (98) 98 03/12/20 16:00 40 03/12/20 16:00 Mechanical Ventilator 03/12/20 15:15 83 19 40 03/12/20 12:07 143/82 03/12/20 12:00 40 03/12/20 12:00 Mechanical Ventilator 03/12/20 12:00 99.0 84 19 143/82 (102) 98 03/12/20 11:40 83 03/12/20 11:05 74 14 40 03/12/20 08:33 86 128/77 03/12/20 08:00 Mechanical Ventilator 03/12/20 08:00 40 03/12/20 08:00 84 03/12/20 08:00 98.7 86 16 128/77 (94) 99 03/12/20 07:15 74 12 40 Intake and Output 03/13/20 03/14/20 19:00 07:00 Intake Total 1100.000 ml 810 ml Output Total 100 ml 800 ml Balance 1000.000 ml 10 ml Intake Free Water 50 ml 150 ml IV Total 330.000 ml Tube Feeding 720 ml 660 ml Output Urine Total 100 ml 800 ml # Voids 3 Labs Test 03/12/20 03:16 03/13/20 03:21 White Blood Count 14.2 K/UL (4.8-10.8) 14.0 K/UL (4.8-10.8) Red Blood Count 3.92 M/UL (4.20-5.40) 3.88 M/UL (4.20-5.40) Hemoglobin 12.0 G/DL (12.0-16.0) 12.0 G/DL (12.0-16.0) Hematocrit 36.0 % (37.0-47.0) 35.8 % (37.0-47.0) Mean Corpuscular Volume 92 FL (80-99) 92 FL (80-99) Mean Corpuscular Hemoglobin 30.5 PG (27.0-31.0) 30.8 PG (27.0-31.0) Mean Corpuscular Hemoglobin Concent 33.2 G/DL (32.0-36.0) 33.4 G/DL (32.0-36.0) Red Cell Distribution Width 12.1 % (11.6-14.8) 12.5 % (11.6-14.8) Platelet Count 318 K/UL (150-450) 337 K/UL (150-450) Mean Platelet Volume 5.6 FL (6.5-10.1) 6.1 FL (6.5-10.1) Neutrophils (%) (Auto) 68.0 % (45.0-75.0) 63.3 % (45.0-75.0) Lymphocytes (%) (Auto) 23.7 % (20.0-45.0) 27.6 % (20.0-45.0) Monocytes (%) (Auto) 4.6 % (1.0-10.0) 5.4 % (1.0-10.0) Eosinophils (%) (Auto) 1.8 % (0.0-3.0) 1.7 % (0.0-3.0) Basophils (%) (Auto) 1.9 % (0.0-2.0) 2.0 % (0.0-2.0) Sodium Level 138 MMOL/L (136-145) 139 MMOL/L (136-145) Potassium Level 4.1 MMOL/L (3.5-5.1) 4.2 MMOL/L (3.5-5.1) Chloride Level 102 MMOL/L (98-107) 102 MMOL/L (98-107) Carbon Dioxide Level 36 MMOL/L (21-32) 38 MMOL/L (21-32) Anion Gap 0 mmol/L (5-15) -1 mmol/L (5-15) Blood Urea Nitrogen 11 mg/dL (7-18) 12 mg/dL (7-18) Creatinine 0.5 MG/DL (0.55-1.30) 0.6 MG/DL (0.55-1.30) Estimat Glomerular Filtration Rate > 60 mL/min (>60) > 60 mL/min (>60) Glucose Level 195 MG/DL (74-106) 199 MG/DL (74-106) Calcium Level 9.3 MG/DL (8.5-10.1) 9.4 MG/DL (8.5-10.1) Total Bilirubin 0.2 MG/DL (0.2-1.0) Aspartate Amino Transf (AST/SGOT) 11 U/L (15-37) Alanine Aminotransferase (ALT/SGPT) 22 U/L (12-78) Alkaline Phosphatase 71 U/L (46-116) Total Protein 6.4 G/DL (6.4-8.2) Albumin 2.7 G/DL (3.4-5.0) Globulin 3.7 g/dL Albumin/Globulin Ratio 0.7 (1.0-2.7) Height (Feet): 5 Height (Inches): 3.00 Weight (Pounds): 168 Objective PE HEENT: Pupils were round, equal, and reactive to light. Sclerae was white. . ENT, mucous membranes were not dehydrated. NECK: Supple. There was no goiter. No mass. ++ trach/vent LUNGS: Clear with decreased breath sounds in both bases HEART: There was normal S1 and normal S2. ABDOMEN: Soft. Nontender without organomegaly. ++ peg EXTREMITIES: No cyanosis, no clubbing, and no edema NEURO: obtunded Asael Raman MD Mar 14, 2020 06:43
--- NOTE | 2020-03-14 07:25 | NUR ---
NURSE HAND-OFF REPORT: Important Events on Shift: Patient Status: Stable Diet: GT feed Pending Orders: Pending Results/Labs: Pending MD notification: Latest Vital Signs: Temperature 99.4 , Pulse 80 , B/P 128 /82 , Respiratory Rate 16 , O2 SAT 99 , Mechanical Ventilator, O2 Flow Rate 40.0 . Vital Sign Comment: EKG Rhythm: Sinus Rhythm Rhythm change?: N MD Notified?: - MD Response: Latest Schmidt Fall Score: 55 Fall Risk: High Risk Safety Measures: Call light Within Reach, Bed Alarm Zone 1, Side Rails Side Rails x3, Bed position Low and Locked. Fall Precautions: Yellow Gown Patient Fall Education Report given to AUGIE Pichardo.
--- NOTE | 2020-03-14 07:30 | NUR ---
NURSE NOTES: Received report from RN Antwon, patient in bed , Luxembourgish speaking with few Chinese , alert watching TV. Able to follow command, answers questions with yes or no using L thumb. Noted to have SR on the court recording monitor. On mechanical ventilator, appears to be tolerating vent settings well. In no apparent signs of distress or discomfort at this time. GT is intact, patent and flushed well. No residual noted. On Vital AF 1.2 at 60cc/hr , off and will resume feeding at 10 am. Patient is incontinent with purewick present and intact. IV site on L hand wrist # 22, TKO. IV site intact, patent and flushed well. Safety measures in place, call light within reach. Will continue to monitor.
[2020-03-14 08:00] VITALS: BP 135/89
[2020-03-14] MEDS: Vitamin D 1000 IU Tab GT SCH (08:39)
[2020-03-14] MEDS: levETIRAcetam 500mg/5ml Liquid GT SCH ×2 (08:40→20:25)
[2020-03-14] MEDS: Heparin 5000 units/ml inj SUBQ SCH ×2 (08:42→20:26)
--- NOTE | 2020-03-14 11:03 | Surgery Progress Note ---
Surgery Progress Note Subjective Additional Comments no acute events labs noted exam stable Objective Last 24 Hour Vital Signs Date Time Temp Pulse Resp B/P (MAP) Pulse Ox O2 Delivery O2 Flow Rate FiO2 03/14/20 08:54 76 135/89 03/14/20 08:21 Mechanical Ventilator 03/14/20 08:00 40 03/14/20 08:00 98.7 76 18 135/89 (104) 99 03/14/20 08:00 84 03/14/20 07:10 80 16 40 03/14/20 06:04 128/82 03/14/20 04:00 99.4 79 16 128/82 (97) 99 03/14/20 04:00 Mechanical Ventilator 03/14/20 04:00 73 03/14/20 04:00 40 03/14/20 03:35 73 16 40 03/14/20 00:01 Mechanical Ventilator 03/14/20 00:00 99.0 76 14 128/85 (99) 99 03/13/20 23:58 128/85 03/13/20 23:19 81 13 40 03/13/20 20:00 99.2 82 14 127/89 (102) 98 03/13/20 20:00 40 03/13/20 20:00 Mechanical Ventilator 03/13/20 20:00 84 03/13/20 19:10 76 19 40 03/13/20 17:52 130/64 03/13/20 16:49 Mechanical Ventilator 03/13/20 16:00 98.7 76 16 130/64 (86) 96 03/13/20 16:00 81 03/13/20 16:00 40 03/13/20 14:42 82 14 40 03/13/20 12:00 40 03/13/20 12:00 Mechanical Ventilator 03/13/20 12:00 74 03/13/20 11:26 99.0 73 14 143/86 (105) 97 03/13/20 11:23 143/86 I&O Intake and Output 03/13/20 03/14/20 19:00 07:00 Intake Total 1100.000 ml 810 ml Output Total 100 ml 800 ml Balance 1000.000 ml 10 ml Intake Free Water 50 ml 150 ml IV Total 330.000 ml Tube Feeding 720 ml 660 ml Output Urine Total 100 ml 800 ml # Voids 3 Dressing: saturated Cardiovascular: RSR Respiratory: decreased breath sounds Abdomen: soft, non-tender, present bowel sounds Extremities: no tenderness, no cyanosis Plan Problems: (1) Sepsis Assessment & Plan: 51-year-old female multi medical committees care dependent trach PEG who has a leukocytosis lactic acidosis sepsis admitted further care and management tracheal secretions identified trachea stable. COVID has been negative on both PCR and standard test. On antibiotics microbiology noted. No acute surgical intervention indicated recommended at this time. The tracheostomy stable and unlikely etiology and she is ventilating well throughout. Secretions likely from a potential pneumonia but the chest x-ray was identified. Nutritional optimization continue tube feeds will monitor and continue to follow with recommendations (2) UTI (urinary tract infection) Assessment & Plan: abx as per pcp (3) Pneumonia (4) Cardiac arrest (5) Anemia (6) Diarrhea (7) Abdominal pain (8) Nosocomial pneumonia (9) Feeding by G-tube Assessment & Plan: tube okay cont feeds supplements meds okay DAILY ESTIMATED NEEDS: Needs based on Critical care 58kg abw 22-28 kcals/kg 2431-0578 total kcals 1.2-2 g protein/kg 70-116 g total protein 25-30 mL/kg 6315-2743 total fluid mLs NUTRITION DIAGNOSIS: Swallowing difficulty r/t respiratory status as evidenced by pt is vent dep via trach w/ PEG. 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 Pt w/ good tolerance to Vital AF last admission in July 2018 without any side effects. Monitor for any signs of intolerance w/ Vital AF. It is also carb controlled (A1C 7.2). - Maintain SNU[employer]OX FINISHER TF run time to x20 hrs for good TF tolerance - Continue goal rate of 60ml/hr x 20 hrs -> meets 100% est kcal/prot needs - Water flush of 120ml q 4 hrs - HOB over 30 degrees ADDITIONAL RECOMMENDATIONS: 1) MONITOR FOR SIGNS OF INTOLERANCE TO FORMULA VITAL AF PT ON SOY BASED FORMULA @ SNF, PT TOLERATED VITAL AF WELL LAST ADM 2) Per SNF: HT=62" and MG=638kwm (03/04/20) vs EMR wt =168lbs -> daily calibrated bedscale wt 3) Monitor lytes, replete as needed 4) NISS for BG control: A1C 7.2, elev BGs (10) Acute on chronic respiratory failure Saman Bruce Mar 14, 2020 11:03
[2020-03-14 11:26] VITALS: BP 159/85
--- NOTE | 2020-03-14 13:08 | Infectious Diseases Prog Note ---
Assessment/Plan Assessment: Severe Sepsis UTI -03/08 CXR: Unchanged left basilar likely infiltrate and pleural fluid, over 2 days -03/06 u/a wbc tnct, nit +, leuk +3; ucx >100k C. koseri (I macrobid; otherwise S) PNA -03/12 CXR: There is been interval worsening of left lower lobe pneumonia with increasing mild left pleural effusion. -03/10 sp cx GNR #1, #2 -03/06 CXR: Retrocardiac opacity may represent the left hemidiaphragm. Staph bacteremia- likely contaminant -03/06 Bcx 06/05 S. epi, 06/05 S hominis; 03/11 Bcx p Fever, SP Leukocytosis, increased- now improving; looking back to records leukocytosis dates back to 2017 WBC 12-14 COVID19 (dx'ed 03/02) vs false positive -03/02 COVID PCR + at [facility]; repeat neg x3 (03/06& rapid COVID PCR neg x1, 03/07 SARS-COV2 PCR neg) Hx of PNA 08/2018 -sp cx MDR ABC (I Ceftazidime; S Amikacin), PsA (arce S); 08/24 sp cx S.marcenses (R ancef otherwise S); 08/28 S. marcescens(R ancef; otherwise S) Hx of UTI 07/2018 -08/29 u/a wbc tnct; ucx ESBL K. 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 Will continue to follow along with you. Discussed with RN ad micro staff. Subjective Allergies: Coded Allergies: MILK (Verified Allergy, Unknown, 08/16/18) afebrile >48hrs wbc improved Objective Last 24 Hour Vital Signs Date Time Temp Pulse Resp B/P (MAP) Pulse Ox O2 Delivery O2 Flow Rate FiO2 03/14/20 12:00 40 03/14/20 12:00 95 03/14/20 12:00 Mechanical Ventilator 03/14/20 11:35 159/85 03/14/20 11:26 98.6 98 14 159/85 (109) 99 03/14/20 11:00 106 25 40 03/14/20 08:54 76 135/89 03/14/20 08:21 Mechanical Ventilator 03/14/20 08:00 40 03/14/20 08:00 98.7 76 18 135/89 (104) 99 03/14/20 08:00 84 03/14/20 07:10 80 16 40 03/14/20 06:04 128/82 03/14/20 04:00 99.4 79 16 128/82 (97) 99 03/14/20 04:00 Mechanical Ventilator 03/14/20 04:00 73 03/14/20 04:00 40 03/14/20 03:35 73 16 40 03/14/20 00:01 Mechanical Ventilator 03/14/20 00:00 99.0 76 14 128/85 (99) 99 03/13/20 23:58 128/85 03/13/20 23:19 81 13 40 03/13/20 20:00 99.2 82 14 127/89 (102) 98 03/13/20 20:00 40 03/13/20 20:00 Mechanical Ventilator 03/13/20 20:00 84 03/13/20 19:10 76 19 40 03/13/20 17:52 130/64 03/13/20 16:49 Mechanical Ventilator 03/13/20 16:00 98.7 76 16 130/64 (86) 96 03/13/20 16:00 81 03/13/20 16:00 40 03/13/20 14:42 82 14 40 Height (Feet): 5 Height (Inches): 3.00 Weight (Pounds): 168 Cardiovascular: RSR Respiratory: decreased breath sounds Abdomen: soft, non-tender, present bowel sounds Extremities: no tenderness, no cyanosis Current Medications Medications (Trade) Dose Ordered Sig/Marzena Route PRN Reason Start Time Stop Time Status Last Admin Dose Admin Acetaminophen (Tylenol) 650 mg Q4H PRN GT Temp >100.5 03/08/20 00:45 04/07/20 00:44 03/11/20 08:24 Amlodipine Besylate (Norvasc) 5 mg DAILY GT 03/06/20 09:00 04/05/20 08:59 03/14/20 08:54 Artificial Tears (Akwa-Tears) 2 drop Q6H PRN BOTH EYES Dry Eyes 03/06/20 06:00 04/05/20 05:59 Atorvastatin Calcium (Lipitor) 10 mg BEDTIME GT 03/06/20 21:00 06/04/20 20:59 03/13/20 21:14 Docusate Sodium (Colace) 100 mg BID PRN GT Constipation 03/08/20 00:45 04/07/20 00:44 Famotidine (Pepcid) 20 mg TWICE A DAY GT 03/06/20 09:00 06/04/20 08:59 03/14/20 08:40 Heparin Sodium (Porcine) (Heparin 5000 units/ml) 5,000 units EVERY 12 HOURS SUBQ 03/06/20 09:00 04/20/20 08:59 03/14/20 08:42 Hydralazine HCl (Apresoline) 10 mg EVERY 6 HOURS GT 03/06/20 06:00 06/04/20 05:59 03/14/20 11:35 Ibuprofen (Advil) 400 mg Q6H PRN ORAL Moderate Pain (Pain Scale 4-6) 03/06/20 06:30 04/05/20 06:29 03/07/20 16:49 Lactulose (Cephulac) 20 gm EVERY 6 HOURS PRN GT Constipation 03/08/20 00:30 04/07/20 00:29 03/09/20 17:18 Levetiracetam (Keppra) 500 mg Q12HR GT 03/06/20 09:00 04/05/20 08:59 03/14/20 08:40 Magnesium Hydroxide (Mom) 30 ml BID PRN GT Constipation 03/08/20 00:45 04/07/20 00:44 Meropenem 1 gm/ Sodium Chloride 55 ml @ 110 mls/hr Q8HR IVPB 03/14/20 22:00 03/19/20 21:59 Meropenem 1 gm/ Sodium Chloride 55 ml @ 110 mls/hr Q8HR IVPB 03/09/20 22:00 03/14/20 21:59 03/14/20 06:04 Polyethylene Glycol (Miralax) 17 gm DAILY PRN GT Constipation 03/08/20 00:30 04/07/20 00:29 Rifaximin (Xifaxan) 550 mg TWICE A DAY ORAL 03/13/20 18:00 03/20/20 17:59 03/14/20 08:39 Vitamin D (Vitamin D) 5,000 intlu DAILY GT 03/07/20 09:00 04/06/20 08:59 03/14/20 08:39 Yeny Webb M.D. Mar 14, 2020 13:08
[2020-03-14 16:00] VITALS: BP 137/89
--- NOTE | 2020-03-14 16:50 | NUR ---
CASE MANAGEMENT: REVIEW SI: PNA . UTI . SEPSIS T 99.4 HR 106 RR 25 BP 159/85 SAT 99% MECH VENT FIO2 40 WBC 14.0 GLUCOSE 199 IS: RIFAXIMIN GT QHS KEPPRA GT Q12HR HEPARIN SUBQ Q12HR VANCOMYCIN IV Q8HR MEROPENEM IV Q8HR ISOLATION PRECAUTIONS STEP DOWN UNIT STATUS DCP: PATIENT IS FROM [facility]
--- NOTE | 2020-03-14 17:00 | NUR ---
NURSE NOTES: Ok to dc isolation for covid per Dr Webb's order.
--- NOTE | 2020-03-14 17:29 | NUR ---
INSURANCE [employer]INICALS/REVIEW SENT TO [facility] [phone] FX [phone]
--- NOTE | 2020-03-14 19:04 | General Progress Note ---
Subjective Constitutional: Reports: no symptoms HEENT: Reports: no symptoms Cardiovascular: Reports: no symptoms Respiratory: Reports: no symptoms Gastrointestinal/Abdominal: Reports: no symptoms Genitourinary: Reports: no symptoms Neurologic/Psychiatric: Reports: no symptoms Endocrine: Reports: no symptoms Hematologic/Lymphatic: Reports: no symptoms Allergies: Coded Allergies: MILK (Verified Allergy, Unknown, 08/16/18) Objective Last 24 Hour Vital Signs Date Time Temp Pulse Resp B/P (MAP) Pulse Ox O2 Delivery O2 Flow Rate FiO2 03/14/20 17:19 137/89 03/14/20 16:00 99.1 96 18 137/89 (105) 97 03/14/20 16:00 93 03/14/20 16:00 40 03/14/20 16:00 Mechanical Ventilator 03/14/20 15:12 103 22 40 03/14/20 12:00 40 03/14/20 12:00 95 03/14/20 12:00 Mechanical Ventilator 03/14/20 11:35 159/85 03/14/20 11:26 98.6 98 14 159/85 (109) 99 03/14/20 11:00 106 25 40 03/14/20 08:54 76 135/89 03/14/20 08:21 Mechanical Ventilator 03/14/20 08:00 40 03/14/20 08:00 98.7 76 18 135/89 (104) 99 03/14/20 08:00 84 03/14/20 07:10 80 16 40 03/14/20 06:04 128/82 03/14/20 04:00 99.4 79 16 128/82 (97) 99 03/14/20 04:00 Mechanical Ventilator 03/14/20 04:00 73 03/14/20 04:00 40 03/14/20 03:35 73 16 40 03/14/20 00:01 Mechanical Ventilator 03/14/20 00:00 99.0 76 14 128/85 (99) 99 03/13/20 23:58 128/85 03/13/20 23:19 81 13 40 03/13/20 20:00 99.2 82 14 127/89 (102) 98 03/13/20 20:00 40 03/13/20 20:00 Mechanical Ventilator 03/13/20 20:00 84 03/13/20 19:10 76 19 40 Intake and Output 03/13/20 03/14/20 19:00 07:00 Intake Total 1100.000 ml 810 ml Output Total 100 ml 800 ml Balance 1000.000 ml 10 ml Intake Free Water 50 ml 150 ml IV Total 330.000 ml Tube Feeding 720 ml 660 ml Output Urine Total 100 ml 800 ml # Voids 3 Height (Feet): 5 Height (Inches): 3.00 Weight (Pounds): 168 General Appearance: WD/WN, no apparent distress, alert, confused EENT: TMs normal Neck: supple Cardiovascular: normal rate, regular rhythm, no gallop/murmur, no JVD Respiratory/Chest: lungs clear, normal breath sounds, no respiratory distress, no accessory muscle use Abdomen: normal bowel sounds, non tender, soft, no organomegaly, no mass Extremities: non-tender Skin: warm/dry Assessment/Plan Status Narrative Patient is awake alert afebrile and hemodynamically stable clinically she remains stable symptomatically for the last several days and her chest x-ray did not change for the last several days in spite of the use of several different antibiotic the last one is meropenem WC decline from 15-14.0 in 4 days the patient herself longer symptomatic we will continue with the same IV antibiotic meropenem repeat laboratory tests will be done in a.m. Karissa Turcios MD, MD Mar 14, 2020 19:04
--- NOTE | 2020-03-14 19:10 | NUR ---
NURSE NOTES: pt report received from Kylee GHOSH. pt remains stable. pt is Trach venenated sating 98% O2 no acute resp distress noted. 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 pt bed is low, locked, armed, call light within reach, bed rails up times 3. will follow plan of care. Addendum: 03/14/20 at 1933 by PARISH AMAYA RN NURSE NOTES: pt report received from Kylee GHOSH. pt remains stable. pt is alert and oriented times 2, no acute neuro abnormalities. pt is Trach venenated sating 99% O2 no acute resp distress noted. 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 pt bed is low, locked, armed, call light within reach, bed rails up times 3. will follow plan of care.
--- NOTE | 2020-03-14 19:26 | NUR ---
NURSE HAND-OFF REPORT: Important Events on Shift:DC covid isolation Patient Status: Stable Diet: Vital Af 1.2 @ 60cc/hr Pending Orders: Pending Results/Labs: Pending MD notification: Latest Vital Signs: Temperature 99.1 , Pulse 93 , B/P 137 /89 , Respiratory Rate 18 , O2 SAT 97 , Mechanical Ventilator, O2 Flow Rate 40.0 . Vital Sign Comment: Stable EKG Rhythm: Sinus Rhythm Rhythm change?: N MD Notified?: - MD Response: Latest Schmidt Fall Score: 70 Fall Risk: High Risk Safety Measures: Call light Within Reach, Bed Alarm Zone 1, Side Rails Side Rails x3, Bed position Low and Locked. Fall Precautions: Yellow Gown Patient Fall Education Report given to Mumtaz Bhandari RN.
--- NOTE | 2020-03-14 19:29 | NUR ---
RESPIRATORY NOTE: Received pt on VOL SIMV 10, 500VT, PS 10, PEEP +5, 40%. Pt is trach-dependent w/ a Cuffed, Portex 7 tube. Pt is alert/awake, follows commands. B/S merlin. rhonchi, sxn small to moderate amounts of thick/thin/frothy, pale-yellow secretions. Vent plugged into red outlet, ambubag at bedside. Pt resting comfortably, in no apparent distress at this time. Will continue plan of care.
[2020-03-14 20:00] VITALS: BP 134/87
--- NOTE | 2020-03-14 23:30 | NUR ---
NURSE NOTES: preformed suctioning via trach site. scant white secretions noted. pt O2 sat is 99%. vital signs stable.
[2020-03-15] VITALS: BP 137/81
--- NOTE | 2020-03-15 00:30 | NUR ---
NURSE NOTES: pt was turned, repositioned and cleaned. no distress noted.
--- NOTE | 2020-03-15 03:30 | NUR ---
NURSE NOTES: pt is asleep. vital signs are stable. pt has been turned. no distress noted as this moment.
[2020-03-15 04:00] VITALS: BP 125/83
[2020-03-15] MEDS: Meropenem 1 GM in NS 55 ML IVPB SCH ×3 (05:11→21:01)
[2020-03-15] MEDS: HydrALAZINE 10mg Tab GT SCH ×4 (05:12→23:26)
--- NOTE | 2020-03-15 07:25 | NUR ---
NURSE NOTES: Received report from AUGIE Pandya, patient in bed ,alert watching TV. Able to follow command. Noted to have SR on the classroom monitor. On mechanical ventilator, appears to be tolerating vent settings well. In no apparent signs of distress or discomfort at this time. GT is intact, patent and flushed well. No residual noted. On Vital AF 1.2 at 60cc/hr , off and will resume feeding at 10 am. Patient is incontinent with purewick present and intact. IV site on L hand wrist # 22, running NS tko, intact, patent and flushed well no signs of infiltration noted. Safety measures in placed , call light within reach. Will continue to monitor.
--- NOTE | 2020-03-15 07:29 | NUR ---
NURSE HAND-OFF REPORT: Important Events on Shift:[NA] Patient Status: [STABLE] Diet: [TUBE FEEDING PER DOCTOR ORDER] Pending Orders: [NA] Pending Results/Labs:[NA] Pending MD notification:[NA] Latest Vital Signs: Temperature 99.0 , Pulse 92 , B/P 130 /83 , Respiratory Rate 20 , O2 SAT 99 , Mechanical Ventilator, O2 Flow Rate 40.0 . Vital Sign Comment: [STABLE] EKG Rhythm: Sinus Rhythm Rhythm change?: N MD Notified?: - MD Response: Latest Schmidt Fall Score: 70 Fall Risk: High Risk Safety Measures: Call light Within Reach, Bed Alarm Zone 1, Side Rails Side Rails x3, Bed position Low and Locked. Fall Precautions: Yellow Gown Patient Fall Education Report given to [Ulices FORD RN].
[2020-03-15 08:00] VITALS: BP 147/97
--- NOTE | 2020-03-15 08:00 | NUR ---
NURSE NOTES: Oral care given. Repositioned Pt.
[2020-03-15] MEDS: Vitamin D 1000 IU Tab GT SCH (08:33)
[2020-03-15] MEDS: levETIRAcetam 500mg/5ml Liquid GT SCH ×2 (08:33→20:07)
[2020-03-15] MEDS: Heparin 5000 units/ml inj SUBQ SCH ×2 (08:34→20:34)
--- NOTE | 2020-03-15 11:00 | NUR ---
NURSE NOTES: Pt repositioned to sides,HOB elevated,no resp distress presented.
--- NOTE | 2020-03-15 11:23 | Hematology/Onc Progress Note ---
Assessment/Plan Assessment/Plan Assessment/Plan # Leukocytosis with likely due to uti/bacteremia --> has not received steriods --> trend 12-->13-->11-->15-->16-->14 --> smear reviewed, no major abnml noted --> on abx as per id zosyn/vanc->vanc/bartolome # Anemia of chronic disease due to underlying chronic medical issues, multifactorial --> Anemia workup only if hgb <10 --> No evidence of hemolysis is noted, peripheral smear has been reviewed. --> Hgb goal >7. Transfuse prn. 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 Greatly appreciate consultation! Subjective Constitutional: Denies: no symptoms, chills, fever, malaise, weakness, other HEENT: Denies: no symptoms, eye pain, blurred vision, tearing, double vision, ear pain, ear discharge, nose pain, nose congestion, throat pain, throat swelling, mouth pain, mouth swelling, other Cardiovascular: Denies: no symptoms, chest pain, edema, irregular heart rate, lightheadedness, palpitations, syncope, other Respiratory: Denies: no symptoms, cough, shortness of breath, SOB with excertion, SOB at rest, sputum, wheezing, other Genitourinary: Denies: no symptoms, burning, discharge, frequency, flank pain, hematuria, incontinence, pain, urgency, other Neurologic/Psychiatric: Denies: no symptoms, anxiety, depressed, emotional problems, headache, numbness, paresthesia, pre-existing deficit, seizure, tingling, tremors, weakness, other Endocrine: Denies: no symptoms, excessive sweating, flushing, intolerance to cold, intolerance to heat, increased hunger, increased thirst, increased urine, unexplained weight gain, unexplained weight loss, other Hematologic/Lymphatic: Denies: no symptoms, anemia, easy bleeding, easy bruising, adenopathy, other Allergies: Coded Allergies: MILK (Verified Allergy, Unknown, 08/16/18) Subjective 03/09 obtunded, no major changes, dw rn, labs noted 03/10 tolerating vent, with no bleeding, dw rn, no major changes 03/11: saturation level is stable, awake. 03/12 awake, alert, no bleeding, labs reviewed, comfortable, dw rn 03/13 comfortable, a+o x1, no bleeding, on abx broad spec, no bleeding 03/14 labs reviewed, no bleeding, imchaela rn, remains on abx 03/15 remains on meropenem and hep sq, labs noted, no bleeding Objective Objective Current Medications Medications (Trade) Dose Ordered Sig/Marzena Route PRN Reason Start Time Stop Time Status Last Admin Dose Admin Acetaminophen (Tylenol) 650 mg Q4H PRN GT Temp >100.5 03/08/20 00:45 04/07/20 00:44 03/11/20 08:24 Amlodipine Besylate (Norvasc) 5 mg DAILY GT 03/06/20 09:00 04/05/20 08:59 03/15/20 08:32 Artificial Tears (Akwa-Tears) 2 drop Q6H PRN BOTH EYES Dry Eyes 03/06/20 06:00 04/05/20 05:59 Atorvastatin Calcium (Lipitor) 10 mg BEDTIME GT 03/06/20 21:00 06/04/20 20:59 03/14/20 20:25 Docusate Sodium (Colace) 100 mg BID PRN GT Constipation 03/08/20 00:45 04/07/20 00:44 Famotidine (Pepcid) 20 mg TWICE A DAY GT 03/06/20 09:00 06/04/20 08:59 03/15/20 08:33 Heparin Sodium (Porcine) (Heparin 5000 units/ml) 5,000 units EVERY 12 HOURS SUBQ 03/06/20 09:00 04/20/20 08:59 03/15/20 08:34 Hydralazine HCl (Apresoline) 10 mg EVERY 6 HOURS GT 03/06/20 06:00 06/04/20 05:59 03/15/20 05:12 Ibuprofen (Advil) 400 mg Q6H PRN ORAL Moderate Pain (Pain Scale 4-6) 03/06/20 06:30 04/05/20 06:29 03/07/20 16:49 Lactulose (Cephulac) 20 gm EVERY 6 HOURS PRN GT Constipation 03/08/20 00:30 04/07/20 00:29 03/09/20 17:18 Levetiracetam (Keppra) 500 mg Q12HR GT 03/06/20 09:00 04/05/20 08:59 03/15/20 08:33 Magnesium Hydroxide (Mom) 30 ml BID PRN GT Constipation 03/08/20 00:45 04/07/20 00:44 Meropenem 1 gm/ Sodium Chloride 55 ml @ 110 mls/hr Q8HR IVPB 03/14/20 22:00 03/19/20 21:59 03/15/20 05:11 Polyethylene Glycol (Miralax) 17 gm DAILY PRN GT Constipation 03/08/20 00:30 04/07/20 00:29 Rifaximin (Xifaxan) 550 mg TWICE A DAY ORAL 03/13/20 18:00 03/20/20 17:59 03/15/20 08:33 Vitamin D (Vitamin D) 5,000 intlu DAILY GT 03/07/20 09:00 04/06/20 08:59 03/15/20 08:33 Last 24 Hour Vital Signs Date Time Temp Pulse Resp B/P (MAP) Pulse Ox O2 Delivery O2 Flow Rate FiO2 03/15/20 08:32 95 147/97 03/15/20 08:00 98.7 95 19 147/97 (114) 99 03/15/20 08:00 Mechanical Ventilator 03/15/20 08:00 40 03/15/20 08:00 87 03/15/20 07:16 84 12 40 03/15/20 05:12 130/83 03/15/20 04:00 40 03/15/20 04:00 92 03/15/20 04:00 99.0 82 20 125/83 (97) 99 03/15/20 04:00 Mechanical Ventilator 03/15/20 02:57 74 16 40 03/15/20 00:00 91 03/15/20 00:00 Mechanical Ventilator 03/15/20 00:00 40 03/15/20 00:00 98.7 86 18 137/81 (99) 99 03/14/20 23:11 130/79 03/14/20 23:06 91 19 40 03/14/20 20:00 98.9 98 18 134/87 (103) 98 03/14/20 20:00 101 03/14/20 20:00 Mechanical Ventilator 03/14/20 20:00 40 03/14/20 19:26 119 20 40 03/14/20 17:19 137/89 03/14/20 16:00 99.1 96 18 137/89 (105) 97 03/14/20 16:00 93 03/14/20 16:00 40 03/14/20 16:00 Mechanical Ventilator 03/14/20 15:12 103 22 40 03/14/20 12:00 40 03/14/20 12:00 95 03/14/20 12:00 Mechanical Ventilator 03/14/20 11:35 159/85 03/14/20 11:26 98.6 98 14 159/85 (109) 99 03/14/20 11:00 106 25 40 03/14/20 08:54 76 135/89 03/14/20 08:21 Mechanical Ventilator 03/14/20 08:00 40 03/14/20 08:00 98.7 76 18 135/89 (104) 99 03/14/20 08:00 84 03/14/20 07:10 80 16 40 03/14/20 06:04 128/82 03/14/20 04:00 99.4 79 16 128/82 (97) 99 03/14/20 04:00 Mechanical Ventilator 03/14/20 04:00 73 03/14/20 04:00 40 03/14/20 03:35 73 16 40 03/14/20 00:01 Mechanical Ventilator 03/14/20 00:00 99.0 76 14 128/85 (99) 99 03/13/20 23:58 128/85 03/13/20 23:19 81 13 40 03/13/20 20:00 99.2 82 14 127/89 (102) 98 03/13/20 20:00 40 03/13/20 20:00 Mechanical Ventilator 03/13/20 20:00 84 03/13/20 19:10 76 19 40 03/13/20 17:52 130/64 03/13/20 16:49 Mechanical Ventilator 03/13/20 16:00 98.7 76 16 130/64 (86) 96 03/13/20 16:00 81 03/13/20 16:00 40 03/13/20 14:42 82 14 40 03/13/20 12:00 40 03/13/20 12:00 Mechanical Ventilator 03/13/20 12:00 74 03/13/20 11:26 99.0 73 14 143/86 (105) 97 03/13/20 11:23 143/86 Intake and Output 03/14/20 03/15/20 19:00 07:00 Intake Total 840 ml 870 ml Output Total 900 ml 500 ml Balance -60 ml 370 ml Intake Free Water 300 ml 100 ml IV Total 110 ml Tube Feeding 540 ml 660 ml Output Urine Total 900 ml 500 ml # Bowel Movements 1 Labs Test 03/13/20 03:21 White Blood Count 14.0 K/UL (4.8-10.8) Red Blood Count 3.88 M/UL (4.20-5.40) Hemoglobin 12.0 G/DL (12.0-16.0) Hematocrit 35.8 % (37.0-47.0) Mean Corpuscular Volume 92 FL (80-99) Mean Corpuscular Hemoglobin 30.8 PG (27.0-31.0) Mean Corpuscular Hemoglobin Concent 33.4 G/DL (32.0-36.0) Red Cell Distribution Width 12.5 % (11.6-14.8) Platelet Count 337 K/UL (150-450) Mean Platelet Volume 6.1 FL (6.5-10.1) Neutrophils (%) (Auto) 63.3 % (45.0-75.0) Lymphocytes (%) (Auto) 27.6 % (20.0-45.0) Monocytes (%) (Auto) 5.4 % (1.0-10.0) Eosinophils (%) (Auto) 1.7 % (0.0-3.0) Basophils (%) (Auto) 2.0 % (0.0-2.0) Sodium Level 139 MMOL/L (136-145) Potassium Level 4.2 MMOL/L (3.5-5.1) Chloride Level 102 MMOL/L (98-107) Carbon Dioxide Level 38 MMOL/L (21-32) Anion Gap -1 mmol/L (5-15) Blood Urea Nitrogen 12 mg/dL (7-18) Creatinine 0.6 MG/DL (0.55-1.30) Estimat Glomerular Filtration Rate > 60 mL/min (>60) Glucose Level 199 MG/DL (74-106) Calcium Level 9.4 MG/DL (8.5-10.1) Height (Feet): 5 Height (Inches): 3.00 Weight (Pounds): 168 Objective PE HEENT: Pupils were round, equal, and reactive to light. Sclerae was white. . ENT, mucous membranes were not dehydrated. NECK: Supple. There was no goiter. No mass. ++ trach/vent LUNGS: Clear with decreased breath sounds in both bases HEART: There was normal S1 and normal S2. ABDOMEN: Soft. Nontender without organomegaly. ++ peg EXTREMITIES: No cyanosis, no clubbing, and no edema NEURO: obtunded Asael Raman MD Mar 15, 2020 11:23
--- NOTE | 2020-03-15 11:53 | NUR ---
CASE MANAGEMENT:REVIEW 03/15/20 SI: SEPSIS D/T PNA AND UTI 98.7 95 19 147/97 99% ON VENT SUPPORT W/40% FIO2 CO2+38 IS: IV MEROPENEM Q8HRS RIFAXIMIN GT QD LACTULOSE GT Q6HRS KEPPRA GT Q12 NORVASC GT QD HEPARIN SQ Q12 HYDRALAZINE GT Q6HRS : STEP DOWN UNIT DCP: [facility]
[2020-03-15 12:00] VITALS: BP 138/84
--- NOTE | 2020-03-15 12:00 | NUR ---
DISCHARGE BARRIER PATIENT'S FIO2 IS 40% AND NEEDS TO BE 30% OR BELOW FOR SUBACUTE PLACEMENT
--- NOTE | 2020-03-15 12:12 | Infectious Diseases Prog Note ---
Assessment/Plan Assessment: Severe Sepsis UTI -03/06 u/a wbc tnct, nit +, leuk +3; ucx >100k C. koseri (I macrobid; otherwise S) PNA -03/12 CXR: There is been interval worsening of left lower lobe pneumonia with increasing mild left pleural effusion. -03/10 sp cx PsA (arce s), GNR #2, #3 -03/08 CXR: Unchanged left basilar likely infiltrate and pleural fluid, over 2 days -03/06 CXR: Retrocardiac opacity may represent the left hemidiaphragm. Staph bacteremia- likely contaminant -03/06 Bcx 06/05 S. epi, 06/05 S hominis; 03/11 Bcx NTD (prelim per micro) Fever, SP Leukocytosis, increased- now improving; looking back to records leukocytosis dates back to 2017 WBC 12-14 COVID19 (dx'ed 03/02) vs false positive -03/02 COVID PCR + at [facility]; repeat neg x3 (03/06& rapid COVID PCR neg x1, 03/07 SARS-COV2 PCR neg) Hx of PNA 08/2018 -sp cx MDR ABC (I Ceftazidime; S Amikacin), PsA (arce S); 08/24 sp cx S.marcenses (R ancef otherwise S); 08/28 S. marcescens(R ancef; otherwise S) Hx of UTI 07/2018 -08/29 u/a wbc tnct; ucx ESBL K. 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 Will continue to follow along with you. Discussed with RN ad micro staff. Subjective Allergies: Coded Allergies: MILK (Verified Allergy, Unknown, 08/16/18) afebrile >72hrs wbc improved; no cbc today Objective Last 24 Hour Vital Signs Date Time Temp Pulse Resp B/P (MAP) Pulse Ox O2 Delivery O2 Flow Rate FiO2 03/15/20 12:04 138/84 03/15/20 12:00 98.5 81 16 138/84 (102) 97 03/15/20 08:32 95 147/97 03/15/20 08:00 98.7 95 19 147/97 (114) 99 03/15/20 08:00 Mechanical Ventilator 03/15/20 08:00 40 03/15/20 08:00 87 03/15/20 07:16 84 12 40 03/15/20 05:12 130/83 03/15/20 04:00 40 03/15/20 04:00 92 03/15/20 04:00 99.0 82 20 125/83 (97) 99 03/15/20 04:00 Mechanical Ventilator 03/15/20 02:57 74 16 40 03/15/20 00:00 91 03/15/20 00:00 Mechanical Ventilator 03/15/20 00:00 40 03/15/20 00:00 98.7 86 18 137/81 (99) 99 03/14/20 23:11 130/79 03/14/20 23:06 91 19 40 03/14/20 20:00 98.9 98 18 134/87 (103) 98 03/14/20 20:00 101 03/14/20 20:00 Mechanical Ventilator 03/14/20 20:00 40 03/14/20 19:26 119 20 40 03/14/20 17:19 137/89 03/14/20 16:00 99.1 96 18 137/89 (105) 97 03/14/20 16:00 93 03/14/20 16:00 40 03/14/20 16:00 Mechanical Ventilator 03/14/20 15:12 103 22 40 Height (Feet): 5 Height (Inches): 3.00 Weight (Pounds): 168 Cardiovascular: RSR Respiratory: decreased breath sounds Abdomen: soft, non-tender, present bowel sounds Extremities: no tenderness, no cyanosis Current Medications Medications (Trade) Dose Ordered Sig/Marzena Route PRN Reason Start Time Stop Time Status Last Admin Dose Admin Acetaminophen (Tylenol) 650 mg Q4H PRN GT Temp >100.5 03/08/20 00:45 04/07/20 00:44 03/11/20 08:24 Amlodipine Besylate (Norvasc) 5 mg DAILY GT 03/06/20 09:00 04/05/20 08:59 03/15/20 08:32 Artificial Tears (Akwa-Tears) 2 drop Q6H PRN BOTH EYES Dry Eyes 03/06/20 06:00 04/05/20 05:59 Atorvastatin Calcium (Lipitor) 10 mg BEDTIME GT 03/06/20 21:00 06/04/20 20:59 03/14/20 20:25 Docusate Sodium (Colace) 100 mg BID PRN GT Constipation 03/08/20 00:45 04/07/20 00:44 Famotidine (Pepcid) 20 mg TWICE A DAY GT 03/06/20 09:00 06/04/20 08:59 03/15/20 08:33 Heparin Sodium (Porcine) (Heparin 5000 units/ml) 5,000 units EVERY 12 HOURS SUBQ 03/06/20 09:00 04/20/20 08:59 03/15/20 08:34 Hydralazine HCl (Apresoline) 10 mg EVERY 6 HOURS GT 03/06/20 06:00 06/04/20 05:59 03/15/20 12:04 Ibuprofen (Advil) 400 mg Q6H PRN ORAL Moderate Pain (Pain Scale 4-6) 03/06/20 06:30 04/05/20 06:29 03/07/20 16:49 Lactulose (Cephulac) 20 gm EVERY 6 HOURS PRN GT Constipation 03/08/20 00:30 04/07/20 00:29 03/09/20 17:18 Levetiracetam (Keppra) 500 mg Q12HR GT 03/06/20 09:00 04/05/20 08:59 03/15/20 08:33 Magnesium Hydroxide (Mom) 30 ml BID PRN GT Constipation 03/08/20 00:45 04/07/20 00:44 Meropenem 1 gm/ Sodium Chloride 55 ml @ 110 mls/hr Q8HR IVPB 03/14/20 22:00 03/19/20 21:59 03/15/20 05:11 Polyethylene Glycol (Miralax) 17 gm DAILY PRN GT Constipation 03/08/20 00:30 04/07/20 00:29 Rifaximin (Xifaxan) 550 mg TWICE A DAY ORAL 03/13/20 18:00 03/20/20 17:59 03/15/20 08:33 Vitamin D (Vitamin D) 5,000 intlu DAILY GT 03/07/20 09:00 04/06/20 08:59 03/15/20 08:33 Yeny Webb M.D. Mar 15, 2020 12:12
[2020-03-15] MEDS ORDERED: NS 275ml ONE ×2 (13:57→14:10)
[2020-03-15] MEDS ORDERED: Tubing IV Secondary IV ONE (13:57)
--- NOTE | 2020-03-15 15:38 | NUR ---
INSURANCE CLINICALS/REVIEW SENT TO [facility] [phone] FX [phone]
[2020-03-15 16:00] VITALS: BP 119/81
--- NOTE | 2020-03-15 16:15 | NUR ---
NURSE NOTES: Spouse at bedside visiting,pt awake at this time, stable no resp distress presented.
--- NOTE | 2020-03-15 16:55 | Surgery Progress Note ---
Surgery Progress Note Subjective Additional Comments afebrile HD stable no n/v labs noted micro reviewed Objective Last 24 Hour Vital Signs Date Time Temp Pulse Resp B/P (MAP) Pulse Ox O2 Delivery O2 Flow Rate FiO2 03/15/20 16:00 Mechanical Ventilator 03/15/20 16:00 98.6 84 21 119/81 (94) 97 03/15/20 16:00 40 03/15/20 15:13 87 03/15/20 12:04 138/84 03/15/20 12:00 Mechanical Ventilator 03/15/20 12:00 40 03/15/20 12:00 98.5 81 16 138/84 (102) 97 03/15/20 11:44 84 03/15/20 11:26 81 13 40 03/15/20 08:32 95 147/97 03/15/20 08:00 98.7 95 19 147/97 (114) 99 03/15/20 08:00 Mechanical Ventilator 03/15/20 08:00 40 03/15/20 08:00 87 03/15/20 07:16 84 12 40 03/15/20 05:12 130/83 03/15/20 04:00 40 03/15/20 04:00 92 03/15/20 04:00 99.0 82 20 125/83 (97) 99 03/15/20 04:00 Mechanical Ventilator 03/15/20 02:57 74 16 40 03/15/20 00:00 91 03/15/20 00:00 Mechanical Ventilator 03/15/20 00:00 40 03/15/20 00:00 98.7 86 18 137/81 (99) 99 03/14/20 23:11 130/79 03/14/20 23:06 91 19 40 03/14/20 20:00 98.9 98 18 134/87 (103) 98 03/14/20 20:00 101 03/14/20 20:00 Mechanical Ventilator 03/14/20 20:00 40 03/14/20 19:26 119 20 40 03/14/20 17:19 137/89 I&O Intake and Output 03/14/20 03/15/20 19:00 07:00 Intake Total 840 ml 870 ml Output Total 900 ml 500 ml Balance -60 ml 370 ml Intake Free Water 300 ml 100 ml IV Total 110 ml Tube Feeding 540 ml 660 ml Output Urine Total 900 ml 500 ml # Bowel Movements 1 Dressing: other Wound: other Cardiovascular: RSR Respiratory: decreased breath sounds Abdomen: soft, non-tender, present bowel sounds Extremities: no edema, no cyanosis Plan Problems: (1) Sepsis Assessment & Plan: 51-year-old female multi medical committees care dependent trach PEG who has a leukocytosis lactic acidosis sepsis admitted further care and management tracheal secretions identified trachea stable. COVID has been negative on both PCR and standard test. On antibiotics microbiology noted. No acute surgical intervention indicated recommended at this time. The tracheostomy stable and unlikely etiology and she is ventilating well througho ut. Secretions likely from a potential pneumonia but the chest x-ray was identified. Nutritional optimization continue tube feeds will monitor and continue to follow with recommendations (2) UTI (urinary tract infection) Assessment & Plan: abx as per pcp (3) Pneumonia (4) Cardiac arrest (5) Anemia (6) Diarrhea (7) Abdominal pain (8) Nosocomial pneumonia (9) Feeding by G-tube Assessment & Plan: tube okay cont feeds supplements meds okay DAILY ESTIMATED NEEDS: Needs based on Critical care 58kg abw 22-28 kcals/kg 1896-9889 total kcals 1.2-2 g protein/kg 70-116 g total protein 25-30 mL/kg 3043-6925 total fluid mLs NUTRITION DIAGNOSIS: Swallowing difficulty r/t respiratory status as evidenced by pt is vent dep via trach w/ PEG. CURRENT TF:VITAL AF 1.2 @ 60ml/hr x 20 hrs ENTERAL NUTRITION RECOMMENDATIONS: VITAL AF 1.2 @ 60ml/hr x 20 hrs to provide 1200ml, 1440kcal, 90g prot, 973ml free water - Rec Vital AF: pt on elemental (and soy based) formula of [employer] DENTURE PROCESSOR Per EMR, pt allergic to milk, unknown true allergy. Pt w/ good tolerance to Vital AF last admission in July 2018 without any side effects. Monitor for any signs of intolerance w/ Vital AF. It is also carb controlled (A1C 7.2). - Maintain DENTURE PROCESSOR TF run time to x20 hrs for good TF tolerance - Continue goal rate of 60ml/hr x 20 hrs -> meets 100% est kcal/prot needs - Water flush of 120ml q 4 hrs - HOB over 30 degrees ADDITIONAL RECOMMENDATIONS: 1) MONITOR FOR SIGNS OF INTOLERANCE TO FORMULA VITAL AF PT ON SOY BASED FORMULA @ SNF, PT TOLERATED VITAL AF WELL LAST ADM 2) Per SNF: HT=62" and RP=[id number] (03/04/20) vs EMR wt =168lbs -> daily calibrated bedscale wt 3) Monitor lytes, replete as needed 4) NISS for BG control: A1C 7.2, elev BGs (10) Acute on chronic respiratory failure Saman Bruce Mar 15, 2020 16:55
--- NOTE | 2020-03-15 19:02 | NUR ---
NURSE HAND-OFF REPORT: Important Events on Shift: For Dc but Fio2 needs to be 30% or below Patient Status: Stable Diet:Vital AF 1.2 @60cc/hr Pending Orders: Pending Results/Labs: Pending MD notification: Latest Vital Signs: Temperature 98.6 , Pulse 84 , B/P 119 /81 , Respiratory Rate 21 , O2 SAT 97 , Mechanical Ventilator, O2 Flow Rate 40.0 . Vital Sign Comment: Stable EKG Rhythm: Sinus Rhythm Rhythm change?: N MD Notified?: - MD Response: Latest Schmidt Fall Score: 70 Fall Risk: High Risk Safety Measures: Call light Within Reach, Bed Alarm Zone 1, Side Rails Side Rails x3, Bed position Low and Locked. Fall Precautions: Yellow Gown Patient Fall Education Report given to Tj Castro RN.
--- NOTE | 2020-03-15 19:07 | General Progress Note ---
Subjective Constitutional: Reports: no symptoms HEENT: Reports: no symptoms Cardiovascular: Reports: no symptoms Respiratory: Reports: no symptoms Gastrointestinal/Abdominal: Reports: no symptoms Genitourinary: Reports: no symptoms Neurologic/Psychiatric: Reports: no symptoms Hematologic/Lymphatic: Reports: no symptoms Allergies: Coded Allergies: MILK (Verified Allergy, Unknown, 08/16/18) Objective Last 24 Hour Vital Signs Date Time Temp Pulse Resp B/P (MAP) Pulse Ox O2 Delivery O2 Flow Rate FiO2 03/15/20 17:21 119/81 03/15/20 16:00 Mechanical Ventilator 03/15/20 16:00 98.6 84 21 119/81 (94) 97 03/15/20 16:00 40 03/15/20 15:18 86 13 40 03/15/20 15:13 87 03/15/20 12:04 138/84 03/15/20 12:00 Mechanical Ventilator 03/15/20 12:00 40 03/15/20 12:00 98.5 81 16 138/84 (102) 97 03/15/20 11:44 84 03/15/20 11:26 81 13 40 03/15/20 08:32 95 147/97 03/15/20 08:00 98.7 95 19 147/97 (114) 99 03/15/20 08:00 Mechanical Ventilator 03/15/20 08:00 40 03/15/20 08:00 87 03/15/20 07:16 84 12 40 03/15/20 05:12 130/83 03/15/20 04:00 40 03/15/20 04:00 92 03/15/20 04:00 99.0 82 20 125/83 (97) 99 03/15/20 04:00 Mechanical Ventilator 03/15/20 02:57 74 16 40 03/15/20 00:00 91 03/15/20 00:00 Mechanical Ventilator 03/15/20 00:00 40 03/15/20 00:00 98.7 86 18 137/81 (99) 99 03/14/20 23:11 130/79 03/14/20 23:06 91 19 40 03/14/20 20:00 98.9 98 18 134/87 (103) 98 03/14/20 20:00 101 03/14/20 20:00 Mechanical Ventilator 03/14/20 20:00 40 03/14/20 19:26 119 20 40 Intake and Output 03/14/20 03/15/20 19:00 07:00 Intake Total 840 ml 870 ml Output Total 900 ml 500 ml Balance -60 ml 370 ml Intake Free Water 300 ml 100 ml IV Total 110 ml Tube Feeding 540 ml 660 ml Output Urine Total 900 ml 500 ml # Bowel Movements 1 Height (Feet): 5 Height (Inches): 3.00 Weight (Pounds): 168 General Appearance: WD/WN, no apparent distress, alert, confused EENT: normal ENT inspection Neck: supple Cardiovascular: normal rate, regular rhythm, no gallop/murmur, no JVD Respiratory/Chest: no respiratory distress, no accessory muscle use, decreased breath sounds, rhonchi - left Abdomen: normal bowel sounds, non tender, soft, no organomegaly, no mass Extremities: non-tender Neurologic: alert, responsive, depressed affect Assessment/Plan Status Narrative Patient is awake alert afebrile hemodynamically stable without respiratory or cardiovascular symptoms WBC remaining 14,000 she is still on meropenem empirically 1 g IV piggyback every 8 for unclear reason laboratory tests were not done now for 2 days events that were ordered by me new orders will be inserted again today by me Repeat laboratory tests will be done in a.m. Karissa Turcios MD, MD Mar 15, 2020 19:06
--- NOTE | 2020-03-15 19:12 | NUR ---
NURSE NOTES: Received report from Elida RN and Tasha RN, pt. in bed awake, appears to be alert to name- able to follow simple commands, pt. is SR on monitor, pt. appears to be tolerating current vent settings well- SIMV 10, TV 500, Fio2 40%, peep 5 and pressure support 10, G tube feeding running Vital AF 1.2 at 60cc/hr- no residual noted, HOB elevated- aspiration precautions observed, skin precautions observed, pure wick intact and set to suction, pt. appears clean and dry, Left hand 22G - TKO, safety measures continued, will continue with plan of care.
[2020-03-15 20:00] VITALS: BP 148/82
--- NOTE | 2020-03-15 23:30 | NUR ---
NURSE NOTES: full bed bath given and linens changed, oral provided- pt. appears to be tolerating current feeding- no residual noted- appears to be tolerating current vent settings well - no distress noted- side rails padded for seizure precautions- HOB elevated- aspiration precautions observed- skin precautions observed- will continue to monitor pt. and with plan of care- safety measures continued.
[2020-03-16] VITALS: BP 132/84
[2020-03-16 04:00] VITALS: BP 125/78
[2020-03-16] MEDS: Meropenem 1 GM in NS 55 ML IVPB SCH ×3 (05:01→21:30)
[2020-03-16] MEDS: HydrALAZINE 10mg Tab GT SCH ×3 (05:01→17:35)
[2020-03-16 05:08] LABS: ANION GAP 6 mmol/L (5-15); BLOOD UREA NITROGEN 22 mg/dL (7-18); CALCIUM 9.7 MG/DL (8.5-10.1); CARBON DIOXIDE 35 MMOL/L (21-32); CHLORIDE 101 MMOL/L (98-107); CREATININE 0.6 MG/DL (0.55-1.30); EOSINOPHILS % (AUTO) 2.2 % (0.0-3.0); HEMATOCRIT 39.5 % (37.0-47.0); LYMPHOCYTES % (AUTO) 22.8 % (20.0-45.0); MEAN CORPUSCULAR VOLUME 92 FL (80-99); NEUTROPHILS % (AUTO) 67.1 % (45.0-75.0); PLATELET COUNT 390 K/UL (150-450); POTASSIUM 4.3 MMOL/L (3.5-5.1); RED CELL DISTRIBUTION WIDTH 12.1 % (11.6-14.8); SODIUM 142 MMOL/L (136-145); WHITE BLOOD COUNT 14.1 K/UL (4.8-10.8)
--- NOTE | 2020-03-16 07:04 | NUR ---
NURSE HAND-OFF REPORT: Important Events on Shift:none Patient Status: stable Diet: Vital AF 1.2 Pending Orders: Pending Results/Labs: Pending MD notification: Latest Vital Signs: Temperature 98.8 , Pulse 80 , B/P 132 /84 , Respiratory Rate 18 , O2 SAT 98 , Mechanical Ventilator, O2 Flow Rate 40.0 . Vital Sign Comment: EKG Rhythm: Sinus Rhythm Rhythm change?: N MD Notified?: - MD Response: Latest Schmidt Fall Score: 70 Fall Risk: High Risk Safety Measures: Call light Within Reach, Bed Alarm Zone 1, Side Rails Side Rails x3, Bed position Low and Locked. Fall Precautions: Yellow Gown Patient Fall Education Report given to Radha Aleman- pt. remains stable and no signs of distress noted- aware to f/u on any abnormal am labs.
--- NOTE | 2020-03-16 07:20 | NUR ---
NURSE NOTES: Report received from Tj Barboza RN.Pt asleep but easily awakens with touch and verbal commands,able to understand simple command,noted no resp distress with trach tube to vent ,ordered vent settings tolerated,no signs of pain or discomfort,S-R on the monitor,GT feeding Vital AF 1.2 at 60 ml/hr off at this time, pt on 20 hrs feeding only,no residual noted,,on Pure wick draining yellow urine.skin warm and dry with IV site to LH intact,SR up x2 HOB elevated bed lock in lowest position,will continue with plans of care.
[2020-03-16 08:00] VITALS: BP 125/79
--- NOTE | 2020-03-16 08:29 | NUR ---
RADIOLOGY DEPT., CHEST X-RAY DONE.-P.DYE
[2020-03-16] MEDS: Vitamin D 1000 IU Tab GT SCH (08:52)
[2020-03-16] MEDS: levETIRAcetam 500mg/5ml Liquid GT SCH ×2 (08:52→21:24)
[2020-03-16] MEDS: Heparin 5000 units/ml inj SUBQ SCH ×2 (08:55→21:26)
--- NOTE | 2020-03-16 10:00 | NUR ---
NURSE NOTES: Pt pulled and repositioned to sides,kept dry and clean,pt incontinent of urine,Pure wick came out.
--- NOTE | 2020-03-16 11:06 | General Progress Note ---
Subjective Constitutional: Reports: no symptoms HEENT: Reports: no symptoms Cardiovascular: Reports: no symptoms Respiratory: Reports: no symptoms Gastrointestinal/Abdominal: Reports: no symptoms Neurologic/Psychiatric: Reports: no symptoms Hematologic/Lymphatic: Reports: no symptoms Allergies: Coded Allergies: MILK (Verified Allergy, Unknown, 08/16/18) Objective Last 24 Hour Vital Signs Date Time Temp Pulse Resp B/P (MAP) Pulse Ox O2 Delivery O2 Flow Rate FiO2 03/16/20 08:53 78 125/79 03/16/20 08:00 40 03/16/20 08:00 Mechanical Ventilator 03/16/20 08:00 83 03/16/20 08:00 98.9 78 18 125/79 (94) 99 03/16/20 05:01 132/84 03/16/20 04:00 40 03/16/20 04:00 Mechanical Ventilator 03/16/20 04:00 98.8 80 18 125/78 (94) 98 03/16/20 03:26 83 03/16/20 02:45 94 18 40 03/16/20 00:00 Mechanical Ventilator 03/16/20 00:00 98.1 83 18 132/84 (100) 99 03/16/20 00:00 40 03/15/20 23:34 78 03/15/20 23:26 132/82 03/15/20 23:25 80 16 40 03/15/20 21:08 98.6 03/15/20 20:00 97.1 82 20 148/82 (104) 99 03/15/20 20:00 40 03/15/20 20:00 Mechanical Ventilator 03/15/20 19:04 80 03/15/20 18:58 83 16 40 03/15/20 17:21 119/81 03/15/20 16:00 Mechanical Ventilator 03/15/20 16:00 98.6 84 21 119/81 (94) 97 03/15/20 16:00 40 03/15/20 15:18 86 13 40 03/15/20 15:13 87 03/15/20 12:04 138/84 03/15/20 12:01 Mechanical Ventilator 03/15/20 12:00 40 03/15/20 12:00 98.5 81 16 138/84 (102) 97 03/15/20 11:44 84 03/15/20 11:26 81 13 40 Intake and Output 03/15/20 03/16/20 19:00 07:00 Intake Total 865 ml 985 ml Output Total 650 ml 125 ml Balance 215 ml 860 ml Intake Free Water 150 ml 100 ml IV Total 55 ml 165 ml Tube Feeding 540 ml 720 ml Other 120 ml Output Urine Total 550 ml 125 ml Other 100 ml # Voids 1 # Bowel Movements 1 1 Laboratory Tests 03/16/20 03:35: White Blood Count 14.1H, Red Blood Count 4.30, Hemoglobin 13.0, Hematocrit 39.5, Mean Corpuscular Volume 92, Mean Corpuscular Hemoglobin 30.2, Mean Corpuscular Hemoglobin Concent 32.9, Red Cell Distribution Width 12.1, Platelet Count 390, Mean Platelet Volume 5.8L, Neutrophils (%) (Auto) 67.1, Lymphocytes (%) (Auto) 22.8, Monocytes (%) (Auto) 6.0, Eosinophils (%) (Auto) 2.2, Basophils (%) (Auto) 2.0, Sodium Level 142, Potassium Level 4.3, Chloride Level 101, Carbon Dioxide Level 35H, Anion Gap 6, Blood Urea Nitrogen 22H, Creatinine 0.6, Estimat Glomerular Filtration Rate > 60, Glucose Level 184H, Calcium Level 9.7 Height (Feet): 5 Height (Inches): 3.00 Weight (Pounds): 168 General Appearance: WD/WN, no apparent distress, alert, confused EENT: normal ENT inspection Neck: supple Cardiovascular: normal rate, regular rhythm, no gallop/murmur, no JVD Respiratory/Chest: no respiratory distress, no accessory muscle use, decreased breath sounds, rhonchi - left Abdomen: normal bowel sounds, non tender, soft, no organomegaly, no mass, abnormal bowel sounds Neurologic: alert, responsive, depressed affect Assessment/Plan Status Narrative Patient is awake alert afebrile hemodynamically stable there is no cough sputum or expectoration laboratory tests have been the patient remained is 14,000 WBC since admission chest x-ray that was ordered yesterday was not done any murmurs or the urgently today and previous chest x-ray 3 days ago elevated chest x-ray infiltrate did not change with the current treatment Repeat laboratory tests will be done in a.m. Karissa Turcios MD, MD Mar 16, 2020 11:05
--- NOTE | 2020-03-16 11:41 | Surgery Progress Note ---
Surgery Progress Note Subjective Additional Comments afebrile, HD stable no n/v comfortable appearing wbc 14k Objective Last 24 Hour Vital Signs Date Time Temp Pulse Resp B/P (MAP) Pulse Ox O2 Delivery O2 Flow Rate FiO2 03/16/20 11:19 99 16 40 03/16/20 08:53 78 125/79 03/16/20 08:00 40 03/16/20 08:00 Mechanical Ventilator 03/16/20 08:00 83 03/16/20 08:00 98.9 78 18 125/79 (94) 99 03/16/20 07:18 96 14 40 03/16/20 05:01 132/84 03/16/20 04:00 40 03/16/20 04:00 Mechanical Ventilator 03/16/20 04:00 98.8 80 18 125/78 (94) 98 03/16/20 03:26 83 03/16/20 02:45 94 18 40 03/16/20 00:00 Mechanical Ventilator 03/16/20 00:00 98.1 83 18 132/84 (100) 99 03/16/20 00:00 40 03/15/20 23:34 78 03/15/20 23:26 132/82 03/15/20 23:25 80 16 40 03/15/20 21:08 98.6 03/15/20 20:00 97.1 82 20 148/82 (104) 99 03/15/20 20:00 40 03/15/20 20:00 Mechanical Ventilator 03/15/20 19:04 80 03/15/20 18:58 83 16 40 03/15/20 17:21 119/81 03/15/20 16:00 Mechanical Ventilator 03/15/20 16:00 98.6 84 21 119/81 (94) 97 03/15/20 16:00 40 03/15/20 15:18 86 13 40 03/15/20 15:13 87 03/15/20 12:04 138/84 03/15/20 12:01 Mechanical Ventilator 03/15/20 12:00 40 03/15/20 12:00 98.5 81 16 138/84 (102) 97 03/15/20 11:44 84 I&O Intake and Output 03/15/20 03/16/20 19:00 07:00 Intake Total 865 ml 985 ml Output Total 650 ml 125 ml Balance 215 ml 860 ml Intake Free Water 150 ml 100 ml IV Total 55 ml 165 ml Tube Feeding 540 ml 720 ml Other 120 ml Output Urine Total 550 ml 125 ml Other 100 ml # Voids 1 # Bowel Movements 1 1 Dressing: other Wound: other Cardiovascular: RSR Respiratory: decreased breath sounds Abdomen: soft, non-tender, present bowel sounds Extremities: no tenderness, no cyanosis Laboratory Tests Test 03/16/20 03:35 White Blood Count 14.1 K/UL (4.8-10.8) H Red Blood Count 4.30 M/UL (4.20-5.40) Hemoglobin 13.0 G/DL (12.0-16.0) Hematocrit 39.5 % (37.0-47.0) Mean Corpuscular Volume 92 FL (80-99) Mean Corpuscular Hemoglobin 30.2 PG (27.0-31.0) Mean Corpuscular Hemoglobin Concent 32.9 G/DL (32.0-36.0) Red Cell Distribution Width 12.1 % (11.6-14.8) Platelet Count 390 K/UL (150-450) Mean Platelet Volume 5.8 FL (6.5-10.1) L Neutrophils (%) (Auto) 67.1 % (45.0-75.0) Lymphocytes (%) (Auto) 22.8 % (20.0-45.0) Monocytes (%) (Auto) 6.0 % (1.0-10.0) Eosinophils (%) (Auto) 2.2 % (0.0-3.0) Basophils (%) (Auto) 2.0 % (0.0-2.0) Sodium Level 142 MMOL/L (136-145) Potassium Level 4.3 MMOL/L (3.5-5.1) Chloride Level 101 MMOL/L (98-107) Carbon Dioxide Level 35 MMOL/L (21-32) H Anion Gap 6 mmol/L (5-15) Blood Urea Nitrogen 22 mg/dL (7-18) H Creatinine 0.6 MG/DL (0.55-1.30) Estimat Glomerular Filtration Rate > 60 mL/min (>60) Glucose Level 184 MG/DL (74-106) H Calcium Level 9.7 MG/DL (8.5-10.1) Plan Problems: (1) Sepsis Assessment & Plan: 51-year-old female multi medical committees care dependent trach PEG who has a leukocytosis lactic acidosis sepsis admitted further care and management tracheal secretions identified trachea stable. COVID has been negative on both PCR and standard test. On antibiotics microbiology noted. No acute surgical intervention indicated recommended at this time. The tracheostomy stable and unlikely etiology and she is ventilating well throughout. Secretions likely from a potential pneumonia but the chest x-ray was identified. Nutritional optimization continue tube feeds will monitor and continue to follow with recommendations (2) UTI (urinary tract infection) Assessment & Plan: abx as per pcp (3) Pneumonia (4) Cardiac arrest (5) Anemia (6) Diarrhea (7) Abdominal pain (8) Nosocomial pneumonia (9) Feeding by G-tube Assessment & Plan: tube okay cont feeds supplements meds okay DAILY ESTIMATED NEEDS: Needs based on Critical care 58kg abw 22-28 kcals/kg 7267-1486 total kcals 1.2-2 g protein/kg 70-116 g total protein 25-30 mL/kg 2302-4001 total fluid mLs NUTRITION DIAGNOSIS: Swallowing difficulty r/t respiratory status as evidenced by pt is vent dep via trach w/ PEG. CURRENT TF:VITAL AF 1.2 @ 60ml/hr x 20 hrs ENTERAL NUTRITION RECOMMENDATIONS: VITAL AF 1.2 @ 60ml/hr x 20 hrs to provide 1200ml, 1440kcal, 90g prot, 973ml free water - Rec Vital AF: pt on elemental (and soy based) formula of [employer] FAMILY DINNER SERVICE SPECIALIST Per EMR, pt allergic to milk, unknown true allergy. Pt w/ good tolerance to Vital AF last admission in July 2018 without any side effects. Monitor for any signs of intolerance w/ Vital AF. It is also carb controlled (A1C 7.2). - Maintain FAMILY DINNER SERVICE SPECIALIST TF run time to x20 hrs for good TF tolerance - Continue goal rate of 60ml/hr x 20 hrs -> meets 100% est kcal/prot needs - Water flush of 120ml q 4 hrs - HOB over 30 degrees ADDITIONAL RECOMMENDATIONS: 1) MONITOR FOR SIGNS OF INTOLERANCE TO FORMULA VITAL AF PT ON SOY BASED FORMULA @ SNF, PT TOLERATED VITAL AF WELL LAST ADM 2) Per SNF: HT=62" and DK=[id number] (03/04/20) vs EMR wt =168lbs -> daily calibrated bedscale wt 3) Monitor lytes, replete as needed 4) NISS for BG control: A1C 7.2, elev BGs (10) Acute on chronic respiratory failure aSman Bruce Mar 16, 2020 11:41
[2020-03-16 11:54] VITALS: BP 123/81
--- NOTE | 2020-03-16 12:14 | Hematology/Onc Progress Note ---
Assessment/Plan Assessment/Plan Assessment/Plan # Leukocytosis with likely due to uti/bacteremia --> has not received steriods --> trend 12-->13-->11-->15-->16-->14 --> smear reviewed, no major abnml noted --> on abx as per id zosyn/vanc->vanc/bartolome-->meropenem # Anemia of chronic disease due to underlying chronic medical issues, multifactorial --> Anemia workup only if hgb <10 --> No evidence of hemolysis is noted, peripheral smear has been reviewed. --> Hgb goal >7. Transfuse prn. 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 Greatly appreciate consultation! Subjective HEENT: Denies: no symptoms, eye pain, blurred vision, tearing, double vision, ear pain, ear discharge, nose pain, nose congestion, throat pain, throat swelling, mouth pain, mouth swelling, other Cardiovascular: Denies: no symptoms, chest pain, edema, irregular heart rate, lightheadedness, palpitations, syncope, other Respiratory: Denies: no symptoms, cough, shortness of breath, SOB with excertion, SOB at rest, sputum, wheezing, other Gastrointestinal/Abdominal: Denies: no symptoms, abdomen distended, abdominal pain, black stools, tarry stools, blood in stool, constipated, diarrhea, difficulty swallowing, nausea, poor appetite, poor fluid intake, rectal bleed ing, vomiting, other Genitourinary: Denies: no symptoms, burning, discharge, frequency, flank pain, hematuria, incontinence, pain, urgency, other Endocrine: Denies: no symptoms, excessive sweating, flushing, intolerance to cold, intolerance to heat, increased hunger, increased thirst, increased urine, unexplained weight gain, unexplained weight loss, other Allergies: Coded Allergies: MILK (Verified Allergy, Unknown, 08/16/18) Subjective 03/09 obtunded, no major changes, dw rn, labs noted 03/10 tolerating vent, with no bleeding, dw rn, no major changes 03/11: saturation level is stable, awake. 03/12 awake, alert, no bleeding, labs reviewed, comfortable, michaela rn 03/13 comfortable, a+o x1, no bleeding, on abx broad spec, no bleeding 03/14 labs reviewed, no bleeding, michaela rn, remains on abx 03/15 remains on meropenem and hep sq, labs noted, no bleeding 03/16 labs reviewed, meds noted, on meropenem, on hep sq Objective Objective Current Medications Medications (Trade) Dose Ordered Sig/Marzena Route PRN Reason Start Time Stop Time Status Last Admin Dose Admin Acetaminophen (Tylenol) 650 mg Q4H PRN GT Temp >100.5 03/08/20 00:45 04/07/20 00:44 03/11/20 08:24 Amlodipine Besylate (Norvasc) 5 mg DAILY GT 03/06/20 09:00 04/05/20 08:59 03/16/20 08:53 Artificial Tears (Akwa-Tears) 2 drop Q6H PRN BOTH EYES Dry Eyes 03/06/20 06:00 04/05/20 05:59 Atorvastatin Calcium (Lipitor) 10 mg BEDTIME GT 03/06/20 21:00 06/04/20 20:59 03/15/20 20:07 Docusate Sodium (Colace) 100 mg BID PRN GT Constipation 03/08/20 00:45 04/07/20 00:44 Famotidine (Pepcid) 20 mg TWICE A DAY GT 03/06/20 09:00 06/04/20 08:59 03/16/20 08:53 Heparin Sodium (Porcine) (Heparin 5000 units/ml) 5,000 units EVERY 12 HOURS SUBQ 03/06/20 09:00 04/20/20 08:59 03/16/20 08:55 Hydralazine HCl (Apresoline) 10 mg EVERY 6 HOURS GT 03/06/20 06:00 06/04/20 05:59 03/16/20 05:01 Ibuprofen (Advil) 400 mg Q6H PRN ORAL Moderate Pain (Pain Scale 4-6) 03/06/20 06:30 04/05/20 06:29 03/15/20 20:38 Lactulose (Cephulac) 20 gm EVERY 6 HOURS PRN GT Constipation 03/08/20 00:30 04/07/20 00:29 03/09/20 17:18 Levetiracetam (Keppra) 500 mg Q12HR GT 03/06/20 09:00 04/05/20 08:59 03/16/20 08:52 Magnesium Hydroxide (Mom) 30 ml BID PRN GT Constipation 03/08/20 00:45 04/07/20 00:44 Meropenem 1 gm/ Sodium Chloride 55 ml @ 110 mls/hr Q8HR IVPB 03/14/20 22:00 03/19/20 21:59 03/16/20 05:01 Polyethylene Glycol (Miralax) 17 gm DAILY PRN GT Constipation 03/08/20 00:30 04/07/20 00:29 Rifaximin (Xifaxan) 550 mg TWICE A DAY ORAL 03/13/20 18:00 03/20/20 17:59 03/16/20 09:07 Vitamin D (Vitamin D) 5,000 intlu DAILY GT 03/07/20 09:00 04/06/20 08:59 03/16/20 08:52 Last 24 Hour Vital Signs Date Time Temp Pulse Resp B/P (MAP) Pulse Ox O2 Delivery O2 Flow Rate FiO2 03/16/20 11:54 98.6 81 20 123/81 (95) 98 03/16/20 11:19 99 16 40 03/16/20 08:53 78 125/79 03/16/20 08:00 40 03/16/20 08:00 Mechanical Ventilator 03/16/20 08:00 83 03/16/20 08:00 98.9 78 18 125/79 (94) 99 03/16/20 07:18 96 14 40 03/16/20 05:01 132/84 03/16/20 04:00 40 03/16/20 04:00 Mechanical Ventilator 03/16/20 04:00 98.8 80 18 125/78 (94) 98 03/16/20 03:26 83 03/16/20 02:45 94 18 40 03/16/20 00:00 Mechanical Ventilator 03/16/20 00:00 98.1 83 18 132/84 (100) 99 03/16/20 00:00 40 03/15/20 23:34 78 03/15/20 23:26 132/82 03/15/20 23:25 80 16 40 03/15/20 21:08 98.6 03/15/20 20:00 97.1 82 20 148/82 (104) 99 03/15/20 20:00 40 03/15/20 20:00 Mechanical Ventilator 03/15/20 19:04 80 03/15/20 18:58 83 16 40 03/15/20 17:21 119/81 03/15/20 16:00 Mechanical Ventilator 03/15/20 16:00 98.6 84 21 119/81 (94) 97 03/15/20 16:00 40 03/15/20 15:18 86 13 40 03/15/20 15:13 87 03/15/20 12:04 138/84 03/15/20 12:01 Mechanical Ventilator 03/15/20 12:00 40 03/15/20 12:00 98.5 81 16 138/84 (102) 97 03/15/20 11:44 84 03/15/20 11:26 81 13 40 03/15/20 08:32 95 147/97 03/15/20 08:00 98.7 95 19 147/97 (114) 99 03/15/20 08:00 Mechanical Ventilator 03/15/20 08:00 40 03/15/20 08:00 87 03/15/20 07:16 84 12 40 03/15/20 05:12 130/83 03/15/20 04:00 40 03/15/20 04:00 92 03/15/20 04:00 99.0 82 20 125/83 (97) 99 03/15/20 04:00 Mechanical Ventilator 03/15/20 02:57 74 16 40 03/15/20 00:00 91 03/15/20 00:00 Mechanical Ventilator 03/15/20 00:00 40 03/15/20 00:00 98.7 86 18 137/81 (99) 99 03/14/20 23:11 130/79 03/14/20 23:06 91 19 40 03/14/20 20:00 98.9 98 18 134/87 (103) 98 03/14/20 20:00 101 03/14/20 20:00 Mechanical Ventilator 03/14/20 20:00 40 03/14/20 19:26 119 20 40 03/14/20 17:19 137/89 03/14/20 16:00 99.1 96 18 137/89 (105) 97 03/14/20 16:00 93 03/14/20 16:00 40 03/14/20 16:00 Mechanical Ventilator 03/14/20 15:12 103 22 40 Intake and Output 03/15/20 03/16/20 19:00 07:00 Intake Total 865 ml 985 ml Output Total 650 ml 125 ml Balance 215 ml 860 ml Intake Free Water 150 ml 100 ml IV Total 55 ml 165 ml Tube Feeding 540 ml 720 ml Other 120 ml Output Urine Total 550 ml 125 ml Other 100 ml # Voids 1 # Bowel Movements 1 1 Labs Test 03/16/20 03:35 White Blood Count 14.1 K/UL (4.8-10.8) Red Blood Count 4.30 M/UL (4.20-5.40) Hemoglobin 13.0 G/DL (12.0-16.0) Hematocrit 39.5 % (37.0-47.0) Mean Corpuscular Volume 92 FL (80-99) Mean Corpuscular Hemoglobin 30.2 PG (27.0-31.0) Mean Corpuscular Hemoglobin Concent 32.9 G/DL (32.0-36.0) Red Cell Distribution Width 12.1 % (11.6-14.8) Platelet Count 390 K/UL (150-450) Mean Platelet Volume 5.8 FL (6.5-10.1) Neutrophils (%) (Auto) 67.1 % (45.0-75.0) Lymphocytes (%) (Auto) 22.8 % (20.0-45.0) Monocytes (%) (Auto) 6.0 % (1.0-10.0) Eosinophils (%) (Auto) 2.2 % (0.0-3.0) Basophils (%) (Auto) 2.0 % (0.0-2.0) Sodium Level 142 MMOL/L (136-145) Potassium Level 4.3 MMOL/L (3.5-5.1) Chloride Level 101 MMOL/L (98-107) Carbon Dioxide Level 35 MMOL/L (21-32) Anion Gap 6 mmol/L (5-15) Blood Urea Nitrogen 22 mg/dL (7-18) Creatinine 0.6 MG/DL (0.55-1.30) Estimat Glomerular Filtration Rate > 60 mL/min (>60) Glucose Level 184 MG/DL (74-106) Calcium Level 9.7 MG/DL (8.5-10.1) Height (Feet): 5 Height (Inches): 3.00 Weight (Pounds): 168 Objective PE HEENT: Pupils were round, equal, and reactive to light. Sclerae was white. . ENT, mucous membranes were not dehydrated. NECK: Supple. There was no goiter. No mass. ++ trach/vent LUNGS: Clear with decreased breath sounds in both bases HEART: There was normal S1 and normal S2. ABDOMEN: Soft. Nontender without organomegaly. ++ peg EXTREMITIES: No cyanosis, no clubbing, and no edema NEURO: obtunded Asael Raman MD Mar 16, 2020 12:14
--- NOTE | 2020-03-16 12:56 | NUR ---
CASE MANAGEMENT:REVIEW 03/16/20 SI: SEPSIS D/T PNA AND UTI VS: T 98.6 HR 81 RR 20 B/P 123/81 SATS 98% ON MECH VENT FIO2 40 LABS: WBC 14.1 CO2 35 BUN 22 GLU 184 IS: IV MEROPENEM Q8HRS RIFAXIMIN GT QD LACTULOSE GT Q6HRS KEPPRA GT Q12 NORVASC GT QD HEPARIN SQ Q12 HYDRALAZINE GT Q6HRS : STEP DOWN UNIT DCP: [facility] LO
--- NOTE | 2020-03-16 13:04 | NUR ---
[facility] [place] [facility] DEPT PH# [phone] FAX# [phone] REVIEWS/CLINICALS
--- NOTE | 2020-03-16 13:13 | Infectious Diseases Prog Note ---
Assessment/Plan Assessment: Severe Sepsis UTI -03/06 u/a wbc tnct, nit +, leuk +3; ucx >100k C. koseri (I macrobid; otherwise S) PNA -03/12 CXR: There is been interval worsening of left lower lobe pneumonia with increasing mild left pleural effusion. -03/10 sp cx PsA (arce s), S. marcescens (R ancef; I levaquin; otherwise S), K. pna (R amp; otherwise S) -03/08 CXR: Unchanged left basilar likely infiltrate and pleural fluid, over 2 days -03/06 CXR: Retrocardiac opacity may represent the left hemidiaphragm. Staph bacteremia- likely contaminant -03/06 Bcx 06/05 S. epi, 06/05 S hominis; 03/11 Bcx NTD (prelim per micro) Fever, SP Leukocytosis, increased- now improving; looking back to records leukocytosis dates back to 2017 WBC 12-14 COVID19 (dx'ed 03/02) vs false positive -03/02 COVID PCR + at [facility]; repeat neg x3 (03/06& rapid COVID PCR neg x1, 03/07 SARS-COV2 PCR neg) Hx of PNA 08/2018 -sp cx MDR ABC (I Ceftazidime; S Amikacin), PsA (arce S); 08/24 sp cx S.marcenses (R ancef otherwise S); 08/28 S. marcescens(R ancef; otherwise S) Hx of UTI 07/2018 -08/29 u/a wbc tnct; ucx ESBL K. pna (S amikacin, ertapanem; R tigecycline) GERD, Vit D Def CAD/VT Dm2 asthma hx of cardiac arrest cerebral hemorrhage w/ residual significant aphasia and R hemiplegia HLD HTN bed bound seizure disorder chronic resp failure s/p trach/vent Dysphagia s/p PEG SNF resident ([facility]) Plan: -continue empiric Meropenem #/ (abx d #11) for PNA and UTI -03/13 SP IV Vancomycin #8 -03/08 SP Zosyn #3 -03/06 SP Ceftriaxone x1, Azithromycin x1 -f/u cx -Monitor CBC/CMP, temperatures -f/u repeat Bcx x2 -Dc COVID 19 isolation- afebrile >72hrs, unclear if initial positive was true or false positive but over 10 days has passed and afebrile now Thank you for this consultation. Will continue to follow along with you. Discussed with RN Subjective Allergies: Coded Allergies: MILK (Verified Allergy, Unknown, 08/16/18) afebrile >72hrs wbc improved; no cbc today Objective Last 24 Hour Vital Signs Date Time Temp Pulse Resp B/P (MAP) Pulse Ox O2 Delivery O2 Flow Rate FiO2 03/16/20 12:28 123/81 03/16/20 12:00 40 03/16/20 12:00 Mechanical Ventilator 03/16/20 11:54 98.6 81 20 123/81 (95) 98 03/16/20 11:19 99 16 40 03/16/20 08:53 78 125/79 03/16/20 08:00 40 03/16/20 08:00 Mechanical Ventilator 03/16/20 08:00 83 03/16/20 08:00 98.9 78 18 125/79 (94) 99 03/16/20 07:18 96 14 40 03/16/20 05:01 132/84 03/16/20 04:00 40 03/16/20 04:00 Mechanical Ventilator 03/16/20 04:00 98.8 80 18 125/78 (94) 98 03/16/20 03:26 83 03/16/20 02:45 94 18 40 03/16/20 00:00 Mechanical Ventilator 03/16/20 00:00 98.1 83 18 132/84 (100) 99 03/16/20 00:00 40 03/15/20 23:34 78 03/15/20 23:26 132/82 03/15/20 23:25 80 16 40 03/15/20 21:08 98.6 03/15/20 20:00 97.1 82 20 148/82 (104) 99 03/15/20 20:00 40 03/15/20 20:00 Mechanical Ventilator 03/15/20 19:04 80 03/15/20 18:58 83 16 40 03/15/20 17:21 119/81 03/15/20 16:00 Mechanical Ventilator 03/15/20 16:00 98.6 84 21 119/81 (94) 97 03/15/20 16:00 40 03/15/20 15:18 86 13 40 03/15/20 15:13 87 Height (Feet): 5 Height (Inches): 3.00 Weight (Pounds): 168 Cardiovascular: RSR Respiratory: decreased breath sounds Abdomen: soft, non-tender, present bowel sounds Extremities: no tenderness, no cyanosis Laboratory Tests Test 03/16/20 03:35 White Blood Count 14.1 K/UL (4.8-10.8) H Red Blood Count 4.30 M/UL (4.20-5.40) Hemoglobin 13.0 G/DL (12.0-16.0) Hematocrit 39.5 % (37.0-47.0) Mean Corpuscular Volume 92 FL (80-99) Mean Corpuscular Hemoglobin 30.2 PG (27.0-31.0) Mean Corpuscular Hemoglobin Concent 32.9 G/DL (32.0-36.0) Red Cell Distribution Width 12.1 % (11.6-14.8) Platelet Count 390 K/UL (150-450) Mean Platelet Volume 5.8 FL (6.5-10.1) L Neutrophils (%) (Auto) 67.1 % (45.0-75.0) Lymphocytes (%) (Auto) 22.8 % (20.0-45.0) Monocytes (%) (Auto) 6.0 % (1.0-10.0) Eosinophils (%) (Auto) 2.2 % (0.0-3.0) Basophils (%) (Auto) 2.0 % (0.0-2.0) Sodium Level 142 MMOL/L (136-145) Potassium Level 4.3 MMOL/L (3.5-5.1) Chloride Level 101 MMOL/L (98-107) Carbon Dioxide Level 35 MMOL/L (21-32) H Anion Gap 6 mmol/L (5-15) Blood Urea Nitrogen 22 mg/dL (7-18) H Creatinine 0.6 MG/DL (0.55-1.30) Estimat Glomerular Filtration Rate > 60 mL/min (>60) Glucose Level 184 MG/DL (74-106) H Calcium Level 9.7 MG/DL (8.5-10.1) Current Medications Medications (Trade) Dose Ordered Sig/Marzena Route PRN Reason Start Time Stop Time Status Last Admin Dose Admin Acetaminophen (Tylenol) 650 mg Q4H PRN GT Temp >100.5 03/08/20 00:45 04/07/20 00:44 03/11/20 08:24 Amlodipine Besylate (Norvasc) 5 mg DAILY GT 03/06/20 09:00 04/05/20 08:59 03/16/20 08:53 Artificial Tears (Akwa-Tears) 2 drop Q6H PRN BOTH EYES Dry Eyes 03/06/20 06:00 04/05/20 05:59 Atorvastatin Calcium (Lipitor) 10 mg BEDTIME GT 03/06/20 21:00 06/04/20 20:59 03/15/20 20:07 Docusate Sodium (Colace) 100 mg BID PRN GT Constipation 03/08/20 00:45 04/07/20 00:44 Famotidine (Pepcid) 20 mg TWICE A DAY GT 03/06/20 09:00 06/04/20 08:59 03/16/20 08:53 Heparin Sodium (Porcine) (Heparin 5000 units/ml) 5,000 units EVERY 12 HOURS SUBQ 03/06/20 09:00 04/20/20 08:59 03/16/20 08:55 Hydralazine HCl (Apresoline) 10 mg EVERY 6 HOURS GT 03/06/20 06:00 06/04/20 05:59 03/16/20 12:28 Ibuprofen (Advil) 400 mg Q6H PRN ORAL Moderate Pain (Pain Scale 4-6) 03/06/20 06:30 04/05/20 06:29 03/15/20 20:38 Lactulose (Cephulac) 20 gm EVERY 6 HOURS PRN GT Constipation 03/08/20 00:30 04/07/20 00:29 03/09/20 17:18 Levetiracetam (Keppra) 500 mg Q12HR GT 03/06/20 09:00 04/05/20 08:59 03/16/20 08:52 Magnesium Hydroxide (Mom) 30 ml BID PRN GT Constipation 03/08/20 00:45 04/07/20 00:44 Meropenem 1 gm/ Sodium Chloride 55 ml @ 110 mls/hr Q8HR IVPB 03/14/20 22:00 03/19/20 21:59 03/16/20 05:01 Polyethylene Glycol (Miralax) 17 gm DAILY PRN GT Constipation 03/08/20 00:30 04/07/20 00:29 Rifaximin (Xifaxan) 550 mg TWICE A DAY ORAL 03/13/20 18:00 03/20/20 17:59 03/16/20 09:07 Vitamin D (Vitamin D) 5,000 intlu DAILY GT 03/07/20 09:00 04/06/20 08:59 03/16/20 08:52 Yeny Webb M.D. Mar 16, 2020 13:13
--- NOTE | 2020-03-16 14:00 | NUR ---
NURSE NOTES: Oral care done,tracheal/opral secretions suctioned PRN.
--- NOTE | 2020-03-16 15:00 | Diagnostic Imaging Report ---
Indication: Shortness of breath Technique: One view of the chest Comparison: 03/13/2020 Findings: There is persistent opacification of the left lung base. Left upper lung, right lung pleural space remain clear. Tracheostomy remains. Impression: Unchanged, over 3 days, findings as above.
[2020-03-16] MEDS ORDERED: NS 275ml ONE (15:05)
[2020-03-16 16:00] VITALS: BP 127/79
--- NOTE | 2020-03-16 16:00 | NUR ---
NURSE NOTES: Pt placed on FiO2 30% by R.T. tolerating change of settings,O2 sat at 96%,will continue to monitor pt.
--- NOTE | 2020-03-16 18:00 | NUR ---
NURSE NOTES: Pt resting in bed awake,no resp distress presented remains on FIO2 30% O2 sat 98%
--- NOTE | 2020-03-16 19:30 | NUR ---
NURSE HAND-OFF REPORT: Important Events on Shift:Tolerating FIO2 30% Patient Status: stable Diet: Vital AF1.2 at 60 ml/hr per GT Pending Orders: N/A Pending Results/Labs:N/A Pending MD notification:N/A Latest Vital Signs: Temperature 98.7 , Pulse 93 , B/P 127 /79 , Respiratory Rate 14 , O2 SAT 96 , Mechanical Ventilator, O2 Flow Rate 40.0 . Vital Sign Comment: stable EKG Rhythm: Sinus Rhythm Rhythm change?: N MD Notified?: - MD Response: Latest Schmidt Fall Score: 70 Fall Risk: High Risk Safety Measures: Call light Within Reach, Bed Alarm Zone 1, Side Rails Side Rails x3, Bed position Low and Locked. Fall Precautions: Yellow Gown Patient Fall Education Report given to Arslan Bolton RN.
[2020-03-16 20:00] VITALS: BP 118/81
--- NOTE | 2020-03-16 20:09 | NUR ---
NURSE NOTES: received pt from Elida Bhandari RN., pt is awake and AO x2 at this time. pt is SR in gambling monitor, vent in place. no SOB noted O2sat is at 96%. pt has purewick on. Gtube site intact, clean, and patent. skin alteration noted dressing are clean, dry, and patent. left hand 22G Iv site intact, clean, and patent. call light within reach. will continue to monitor pt with plan of care. bed at the lowest position, alarmed, and locked.
--- NOTE | 2020-03-16 20:09 | NUR ---
NURSE NOTES: no active bleeding noted at this time.
[2020-03-17] VITALS: BP 117/74
[2020-03-17] MEDS: Acetaminophen 650mg/20.3ml GT PRN (00:22)
[2020-03-17] MEDS: HydrALAZINE 10mg Tab GT SCH ×4 (00:23→18:10)
--- NOTE | 2020-03-17 03:41 | NUR ---
NURSE NOTES: cleaned pt, oral care given, cool bath given. provided new gown, provided new blanket. call light within reach will continue to monitor pt with plan of care. no active bleeding noted. no SOB noted at this time.
[2020-03-17 04:00] VITALS: BP 118/75
[2020-03-17 04:49] LABS: BASOPHILS % (AUTO) 1.3 % (0.0-2.0); EOSINOPHILS % (AUTO) 1.6 % (0.0-3.0); HEMATOCRIT 38.5 % (37.0-47.0); HEMOGLOBIN 12.5 G/DL (12.0-16.0); LYMPHOCYTES % (AUTO) 24.7 % (20.0-45.0); MEAN CORPUSCULAR VOLUME 92 FL (80-99); MONOCYTES % (AUTO) 5.8 % (1.0-10.0); NEUTROPHILS % (AUTO) 66.6 % (45.0-75.0); PLATELET COUNT 396 K/UL (150-450); RED BLOOD COUNT 4.18 M/UL (4.20-5.40); RED CELL DISTRIBUTION WIDTH 12.1 % (11.6-14.8); WHITE BLOOD COUNT 12.8 K/UL (4.8-10.8)
[2020-03-17 04:55] LABS: ANION GAP 2 mmol/L (5-15); BLOOD UREA NITROGEN 24 mg/dL (7-18); CALCIUM 9.6 MG/DL (8.5-10.1); CARBON DIOXIDE 38 MMOL/L (21-32); CHLORIDE 101 MMOL/L (98-107); CREATININE 0.6 MG/DL (0.55-1.30); POTASSIUM 4.2 MMOL/L (3.5-5.1); SODIUM 141 MMOL/L (136-145)
[2020-03-17] MEDS: Meropenem 1 GM in NS 55 ML IVPB SCH (05:20)
--- NOTE | 2020-03-17 06:48 | NUR ---
NURSE NOTES: at the bedside. aware of abnormal labs, and pt had fever last night. Vitals are stable except fever. no new order received. call light within reach. will continue to monitor pt.
--- NOTE | 2020-03-17 07:12 | NUR ---
NURSE NOTES: left voice mail to Dr. Webb regarding high fever 100.6 last night. will wait for call back.
--- NOTE | 2020-03-17 07:15 | NUR ---
NURSE HAND-OFF REPORT: Important Events on Shift:fever 100.6 last night. Patient Status: stable Diet: vital A.F 1.2 @ 60ml/hr Pending Orders: n/a Pending Results/Labs:n/a Pending MD notification:Dr. Webb for fever 100.6 Latest Vital Signs: Temperature 99.0 , Pulse 71 , B/P 118 /75 , Respiratory Rate 15 , O2 SAT 97 , Mechanical Ventilator, O2 Flow Rate 40.0 . Vital Sign Comment: stable EKG Rhythm: Sinus Rhythm Rhythm change?: N MD Notified?: - MD Response: Latest Cshmidt Fall Score: 70 Fall Risk: High Risk Safety Measures: Call light Within Reach, Bed Alarm Zone 1, Side Rails Side Rails x3, Bed position Low and Locked. Fall Precautions: Yellow Gown Patient Fall Education Report given to Elida Bhandari RN.
--- NOTE | 2020-03-17 07:15 | NUR ---
NURSE NOTES: Report received from Marycruz Bolton RN.Pt asleep but easily awakens with verbal cue,can follow simple command ,noted no resp distress,with trach tube to vent,settings SIMV 10,TV500,Fio2 30%,PS 10,PEEP 5,no signs of pain or discomfort,S-R on the monitor,GTF Vital AF 1.2 at 60 ml/hr x 20 hr only,off from 7A until 10 AM ,no residual noted,on pure wick draining yellow urine.,skin warm and dry with IV sites x2 RH and RW both intact,SR up x2 HOB elevated SR up s2 padded,bed lock in lowest [position will continue with plans of care.
--- NOTE | 2020-03-17 07:16 | NUR ---
NURSE NOTES: dariana Bhandari RN,. to follow up with glucose check (insulin) for the pt.
--- NOTE | 2020-03-17 07:54 | NUR ---
RD ASSESSMENT & RECOMMENDATIONS SEE CARE ACTIVITY FOR COMPLETE ASSESSMENT DAILY ESTIMATED NEEDS: Needs based on Critical care 58kg abw 22-28 kcals/kg 3536-7970 total kcals 1.2-2 g protein/kg 70-116 g total protein 25-30 mL/kg 0723-3549 total fluid mLs NUTRITION DIAGNOSIS: Swallowing difficulty r/t respiratory status as evidenced by pt is vent dep via trach w/ PEG. CURRENT TF:VITAL AF 1.2 @ 60ml/hr x 20 hrs ENTERAL NUTRITION RECOMMENDATIONS: VITAL AF 1.2 @ 60ml/hr x 20 hrs to provide 1200ml, 1440kcal, 90g prot, 973ml free water - Rec Vital AF: pt on elemental (and soy based) formula of [employer] Per EMR, pt allergic to milk, unknown true allergy. Pt w/ good tolerance to Vital AF last admission in July 2018 without any side effects. Monitor for any signs of intolerance w/ Vital AF. It is also carb controlled (A1C 7.2). - Maintain [employer] TF run time to x20 hrs for good TF tolerance - Continue goal rate of 60ml/hr x 20 hrs -> meets 100% est kcal/prot needs - Water flush of 120ml q 4 hrs - HOB over 30 degrees ADDITIONAL RECOMMENDATIONS: 1) MONITOR FOR SIGNS OF INTOLERANCE TO FORMULA VITAL AF PT ON SOY BASED FORMULA @ SNF, PT TOLERATED VITAL AF WELL LAST ADM 2) Per SNF: HT=62" and DW=090tfb (03/04/20) vs EMR wt =168lbs -> daily calibrated bedscale wt 3) Monitor lytes, replete as needed 4) NISS for BG control: A1C 7.2, elev BGs (210 184)
[2020-03-17 08:08] VITALS: BP 117/79
[2020-03-17] MEDS: levETIRAcetam 500mg/5ml Liquid GT SCH ×2 (09:30→20:27)
[2020-03-17] MEDS: Heparin 5000 units/ml inj SUBQ SCH ×2 (09:31→20:28)
--- NOTE | 2020-03-17 10:08 | NUR ---
CASE MANAGEMENT:REVIEW 03/17/20 SI: SEPSIS D/T PNA AND UTI VS: T 98.8 HR 66 RR 15 B/P 117/79 SATS 97% ON MECH VENT FIO2 30 LABS: WBC 12.8 CO2 38 BUN 24 GLU 210 IS: IV MEROPENEM Q8HRS RIFAXIMIN GT QD LACTULOSE GT Q6HRS KEPPRA GT Q12 NORVASC GT QD HEPARIN SQ Q12 HYDRALAZINE GT Q6HRS : STEP DOWN UNIT DCP: [facility] LO
--- NOTE | 2020-03-17 10:12 | NUR ---
[facility] [place] [facility] DEPT PH# [phone] FAX# [phone] REVIEWS/CLINICALS
[2020-03-17] MEDS: Vitamin D 1000 IU Tab GT SCH (10:47)
--- NOTE | 2020-03-17 11:35 | Hematology/Onc Progress Note ---
Assessment/Plan Assessment/Plan Assessment/Plan # Leukocytosis with likely due to uti/bacteremia with recurrent fever, seen by id --> has not received steriods --> trend 12-->13-->11-->15-->16-->14-->12.8->12.5 --> smear reviewed, no major abnml noted --> on abx as per id zosyn/vanc->vanc/bartolome-->meropenem # Anemia of chronic disease due to underlying chronic medical issues, multifactorial --> Anemia workup only if hgb <10 --> No evidence of hemolysis is noted, peripheral smear has been reviewed. --> Hgb goal >7. Transfuse prn. 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 Greatly appreciate consultation! Subjective Neurologic/Psychiatric: Denies: no symptoms, anxiety, depressed, emotional problems, headache, numbness, paresthesia, pre-existing deficit, seizure, tingling, tremors, weakness, other Endocrine: Denies: no symptoms, excessive sweating, flushing, intolerance to cold, intolerance to heat, increased hunger, increased thirst, increased urine, unexplained weight gain, unexplained weight loss, other Allergies: Coded Allergies: MILK (Verified Allergy, Unknown, 08/16/18) All Systems: reviewed and negative except above Subjective 03/09 obtunded, no major changes, dw rn, labs noted 03/10 tolerating vent, with no bleeding, michaela rn, no major changes 03/11:02 saturation level is stable, awake. 03/12 awake, alert, no bleeding, labs reviewed, comfortable, michaela rn 03/13 comfortable, a+o x1, no bleeding, on abx broad spec, no bleeding 03/14 labs reviewed, no bleeding, michaela rn, remains on abx 03/15 remains on meropenem and hep sq, labs noted, no bleeding 03/16 labs reviewed, meds noted, on meropenem, on hep sq 03/17 labs reviewed, no night sweats, with fever, no bleeding, meds reviewed Objective Objective Current Medications Medications (Trade) Dose Ordered Sig/Marzena Route PRN Reason Start Time Stop Time Status Last Admin Dose Admin Acetaminophen (Tylenol) 650 mg Q4H PRN GT Temp >100.5 03/08/20 00:45 04/07/20 00:44 03/17/20 00:22 Amlodipine Besylate (Norvasc) 5 mg DAILY GT 03/06/20 09:00 04/05/20 08:59 03/17/20 09:31 Artificial Tears (Akwa-Tears) 2 drop Q6H PRN BOTH EYES Dry Eyes 03/06/20 06:00 04/05/20 05:59 Atorvastatin Calcium (Lipitor) 10 mg BEDTIME GT 03/06/20 21:00 06/04/20 20:59 03/16/20 21:24 Docusate Sodium (Colace) 100 mg BID PRN GT Constipation 03/08/20 00:45 04/07/20 00:44 Famotidine (Pepcid) 20 mg TWICE A DAY GT 03/06/20 09:00 06/04/20 08:59 03/17/20 09:30 Heparin Sodium (Porcine) (Heparin 5000 units/ml) 5,000 units EVERY 12 HOURS SUBQ 03/06/20 09:00 04/20/20 08:59 03/17/20 09:31 Hydralazine HCl (Apresoline) 10 mg EVERY 6 HOURS GT 03/06/20 06:00 06/04/20 05:59 03/17/20 05:20 Ibuprofen (Advil) 400 mg Q6H PRN ORAL Moderate Pain (Pain Scale 4-6) 03/06/20 06:30 04/05/20 06:29 03/16/20 21:24 Lactulose (Cephulac) 20 gm EVERY 6 HOURS PRN GT Constipation 03/08/20 00:30 04/07/20 00:29 03/09/20 17:18 Levetiracetam (Keppra) 500 mg Q12HR GT 03/06/20 09:00 04/05/20 08:59 03/17/20 09:30 Magnesium Hydroxide (Mom) 30 ml BID PRN GT Constipation 03/08/20 00:45 04/07/20 00:44 Meropenem 1 gm/ Sodium Chloride 55 ml @ 110 mls/hr Q8HR IVPB 03/14/20 22:00 03/19/20 21:59 03/17/20 05:20 Polyethylene Glycol (Miralax) 17 gm DAILY PRN GT Constipation 03/08/20 00:30 04/07/20 00:29 Rifaximin (Xifaxan) 550 mg TWICE A DAY ORAL 03/13/20 18:00 03/20/20 17:59 03/17/20 09:30 Vitamin D (Vitamin D) 5,000 intlu DAILY GT 03/07/20 09:00 04/06/20 08:59 03/17/20 10:47 Last 24 Hour Vital Signs Date Time Temp Pulse Resp B/P (MAP) Pulse Ox O2 Delivery O2 Flow Rate FiO2 03/17/20 09:31 66 117/79 03/17/20 08:08 98.8 66 15 117/79 (92) 97 03/17/20 08:00 Mechanical Ventilator 03/17/20 08:00 30 03/17/20 08:00 66 03/17/20 07:10 74 10 30 03/17/20 05:20 118/75 03/17/20 04:00 30 03/17/20 04:00 Mechanical Ventilator 03/17/20 04:00 99.0 71 15 118/75 (89) 97 03/17/20 03:49 71 03/17/20 02:13 85 18 30 03/17/20 00:52 99.6 03/17/20 00:23 117/74 03/17/20 00:00 77 03/17/20 00:00 100.6 75 20 117/74 (88) 96 03/17/20 00:00 Mechanical Ventilator 03/16/20 22:41 81 10 30 03/16/20 20:00 98.3 81 20 118/81 (93) 96 03/16/20 20:00 Mechanical Ventilator 03/16/20 20:00 30 03/16/20 19:28 81 03/16/20 19:17 93 14 30 03/16/20 17:35 127/79 03/16/20 16:00 81 03/16/20 16:00 98.7 70 21 127/79 (95) 96 03/16/20 16:00 30 03/16/20 16:00 Mechanical Ventilator 03/16/20 15:35 83 14 30 03/16/20 13:21 89 10 98 Mechanical Ventilator 40 03/16/20 12:28 123/81 03/16/20 12:00 80 03/16/20 12:00 40 03/16/20 12:00 Mechanical Ventilator 03/16/20 11:54 98.6 81 20 123/81 (95) 98 03/16/20 11:19 99 16 40 03/16/20 08:53 78 125/79 03/16/20 08:00 40 03/16/20 08:00 Mechanical Ventilator 03/16/20 08:00 83 03/16/20 08:00 98.9 78 18 125/79 (94) 99 03/16/20 07:18 96 14 40 03/16/20 05:01 132/84 03/16/20 04:00 40 03/16/20 04:00 Mechanical Ventilator 03/16/20 04:00 98.8 80 18 125/78 (94) 98 03/16/20 03:26 83 03/16/20 02:45 94 18 40 03/16/20 00:00 Mechanical Ventilator 03/16/20 00:00 98.1 83 18 132/84 (100) 99 03/16/20 00:00 40 03/15/20 23:34 78 03/15/20 23:26 132/82 03/15/20 23:25 80 16 40 03/15/20 21:08 98.6 03/15/20 20:00 97.1 82 20 148/82 (104) 99 03/15/20 20:00 40 03/15/20 20:00 Mechanical Ventilator 03/15/20 19:04 80 03/15/20 18:58 83 16 40 03/15/20 17:21 119/81 03/15/20 16:00 Mechanical Ventilator 03/15/20 16:00 98.6 84 21 119/81 (94) 97 03/15/20 16:00 40 03/15/20 15:18 86 13 40 03/15/20 15:13 87 03/15/20 12:04 138/84 03/15/20 12:01 Mechanical Ventilator 03/15/20 12:00 40 03/15/20 12:00 98.5 81 16 138/84 (102) 97 03/15/20 11:44 84 Intake and Output 03/16/20 03/17/20 19:00 07:00 Intake Total 920 ml 970 ml Output Total 200 ml 300 ml Balance 720 ml 670 ml Intake Free Water 200 ml 200 ml IV Total 110 ml Tube Feeding 480 ml 660 ml Other 240 ml Output Urine Total 200 ml 300 ml # Voids 4 3 # Bowel Movements 4 Labs Test 03/16/20 03:35 03/17/20 03:10 White Blood Count 14.1 K/UL (4.8-10.8) 12.8 K/UL (4.8-10.8) Red Blood Count 4.30 M/UL (4.20-5.40) 4.18 M/UL (4.20-5.40) Hemoglobin 13.0 G/DL (12.0-16.0) 12.5 G/DL (12.0-16.0) Hematocrit 39.5 % (37.0-47.0) 38.5 % (37.0-47.0) Mean Corpuscular Volume 92 FL (80-99) 92 FL (80-99) Mean Corpuscular Hemoglobin 30.2 PG (27.0-31.0) 30.0 PG (27.0-31.0) Mean Corpuscular Hemoglobin Concent 32.9 G/DL (32.0-36.0) 32.5 G/DL (32.0-36.0) Red Cell Distribution Width 12.1 % (11.6-14.8) 12.1 % (11.6-14.8) Platelet Count 390 K/UL (150-450) 396 K/UL (150-450) Mean Platelet Volume 5.8 FL (6.5-10.1) 6.3 FL (6.5-10.1) Neutrophils (%) (Auto) 67.1 % (45.0-75.0) 66.6 % (45.0-75.0) Lymphocytes (%) (Auto) 22.8 % (20.0-45.0) 24.7 % (20.0-45.0) Monocytes (%) (Auto) 6.0 % (1.0-10.0) 5.8 % (1.0-10.0) Eosinophils (%) (Auto) 2.2 % (0.0-3.0) 1.6 % (0.0-3.0) Basophils (%) (Auto) 2.0 % (0.0-2.0) 1.3 % (0.0-2.0) Sodium Level 142 MMOL/L (136-145) 141 MMOL/L (136-145) Potassium Level 4.3 MMOL/L (3.5-5.1) 4.2 MMOL/L (3.5-5.1) Chloride Level 101 MMOL/L (98-107) 101 MMOL/L (98-107) Carbon Dioxide Level 35 MMOL/L (21-32) 38 MMOL/L (21-32) Anion Gap 6 mmol/L (5-15) 2 mmol/L (5-15) Blood Urea Nitrogen 22 mg/dL (7-18) 24 mg/dL (7-18) Creatinine 0.6 MG/DL (0.55-1.30) 0.6 MG/DL (0.55-1.30) Estimat Glomerular Filtration Rate > 60 mL/min (>60) > 60 mL/min (>60) Glucose Level 184 MG/DL (74-106) 210 MG/DL (74-106) Calcium Level 9.7 MG/DL (8.5-10.1) 9.6 MG/DL (8.5-10.1) Height (Feet): 5 Height (Inches): 3.00 Weight (Pounds): 168 Objective PE HEENT: Pupils were round, equal, and reactive to light. Sclerae was white. . ENT, mucous membranes were not dehydrated. NECK: Supple. There was no goiter. No mass. ++ trach/vent LUNGS: Clear with decreased breath sounds in both bases HEART: There was normal S1 and normal S2. ABDOMEN: Soft. Nontender without organomegaly. ++ peg EXTREMITIES: No cyanosis, no clubbing, and no edema NEURO: obtunded Asael Raman MD Mar 17, 2020 11:34
[2020-03-17 11:44] VITALS: BP 124/75
--- NOTE | 2020-03-17 12:18 | NUR ---
DISCHARGE DISPOSITION: PLEASE READ PATIENT TO BE DISCHARGED TO [facility] [address] T: [phone]>>> CALL FOR REPORT [facility] ETA 1430 W/ RT CALL PLACED TO KAY THOMAS UNABLE TO LEAVe . left for kay suero
--- NOTE | 2020-03-17 12:52 | Infectious Diseases Prog Note ---
Assessment/Plan Assessment: Severe Sepsis UTI -03/06 u/a wbc tnct, nit +, leuk +3; ucx >100k C. koseri (I macrobid; otherwise S) PNA -03/12 CXR: There is been interval worsening of left lower lobe pneumonia with increasing mild left pleural effusion. -03/10 sp cx PsA (arce s), S. marcescens (R ancef; I levaquin; otherwise S), K. pna (R amp; otherwise S) -03/08 CXR: Unchanged left basilar likely infiltrate and pleural fluid, over 2 days -03/06 CXR: Retrocardiac opacity may represent the left hemidiaphragm. Staph bacteremia- likely contaminant -03/06 Bcx 06/05 S. epi, 06/05 S hominis; 03/11 Bcx NTD (prelim per micro) Fever, recurrent low grade Leukocytosis, increased- now improving; looking back to records leukocytosis dates back to 2017 WBC 12-14 COVID19 (dx'ed 03/02) vs false positive -03/02 COVID PCR + at [facility]; repeat neg x3 (03/06& rapid COVID PCR neg x1, 03/07 SARS-COV2 PCR neg) Hx of PNA 08/2018 -sp cx MDR ABC (I Ceftazidime; S Amikacin), PsA (arce S); 08/24 sp cx S.marcenses (R ancef otherwise S); 08/28 S. marcescens(R ancef; otherwise S) Hx of UTI 07/2018 -08/29 u/a wbc tnct; ucx ESBL K. 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 Will continue to follow along with you. Discussed with RN Subjective Allergies: Coded Allergies: MILK (Verified Allergy, Unknown, 08/16/18) Tm 100.6 wbc improving Bcx NTD Objective Last 24 Hour Vital Signs Date Time Temp Pulse Resp B/P (MAP) Pulse Ox O2 Delivery O2 Flow Rate FiO2 03/17/20 12:13 124/75 03/17/20 11:44 98.1 73 20 124/75 (91) 98 03/17/20 11:20 72 11 30 03/17/20 09:31 66 117/79 03/17/20 08:08 98.8 66 15 117/79 (92) 97 03/17/20 08:00 Mechanical Ventilator 03/17/20 08:00 30 03/17/20 08:00 66 03/17/20 07:10 74 10 30 03/17/20 05:20 118/75 03/17/20 04:00 30 03/17/20 04:00 Mechanical Ventilator 03/17/20 04:00 99.0 71 15 118/75 (89) 97 03/17/20 03:49 71 03/17/20 02:13 85 18 30 03/17/20 00:52 99.6 03/17/20 00:23 117/74 03/17/20 00:00 77 03/17/20 00:00 100.6 75 20 117/74 (88) 96 03/17/20 00:00 Mechanical Ventilator 03/16/20 22:41 81 10 30 03/16/20 20:00 98.3 81 20 118/81 (93) 96 03/16/20 20:00 Mechanical Ventilator 03/16/20 20:00 30 03/16/20 19:28 81 03/16/20 19:17 93 14 30 03/16/20 17:35 127/79 03/16/20 16:00 81 03/16/20 16:00 98.7 70 21 127/79 (95) 96 03/16/20 16:00 30 03/16/20 16:00 Mechanical Ventilator 03/16/20 15:35 83 14 30 03/16/20 13:21 89 10 98 Mechanical Ventilator 40 Height (Feet): 5 Height (Inches): 3.00 Weight (Pounds): 168 Cardiovascular: RSR Respiratory: decreased breath sounds Abdomen: soft, non-tender, present bowel sounds Extremities: no tenderness, no cyanosis Laboratory Tests Test 03/17/20 03:10 White Blood Count 12.8 K/UL (4.8-10.8) H Red Blood Count 4.18 M/UL (4.20-5.40) L Hemoglobin 12.5 G/DL (12.0-16.0) Hematocrit 38.5 % (37.0-47.0) Mean Corpuscular Volume 92 FL (80-99) Mean Corpuscular Hemoglobin 30.0 PG (27.0-31.0) Mean Corpuscular Hemoglobin Concent 32.5 G/DL (32.0-36.0) Red Cell Distribution Width 12.1 % (11.6-14.8) Platelet Count 396 K/UL (150-450) Mean Platelet Volume 6.3 FL (6.5-10.1) L Neutrophils (%) (Auto) 66.6 % (45.0-75.0) Lymphocytes (%) (Auto) 24.7 % (20.0-45.0) Monocytes (%) (Auto) 5.8 % (1.0-10.0) Eosinophils (%) (Auto) 1.6 % (0.0-3.0) Basophils (%) (Auto) 1.3 % (0.0-2.0) Sodium Level 141 MMOL/L (136-145) Potassium Level 4.2 MMOL/L (3.5-5.1) Chloride Level 101 MMOL/L (98-107) Carbon Dioxide Level 38 MMOL/L (21-32) H Anion Gap 2 mmol/L (5-15) L Blood Urea Nitrogen 24 mg/dL (7-18) H Creatinine 0.6 MG/DL (0.55-1.30) Estimat Glomerular Filtration Rate > 60 mL/min (>60) Glucose Level 210 MG/DL (74-106) H Calcium Level 9.6 MG/DL (8.5-10.1) Current Medications Medications (Trade) Dose Ordered Sig/Marzena Route PRN Reason Start Time Stop Time Status Last Admin Dose Admin Acetaminophen (Tylenol) 650 mg Q4H PRN GT Temp >100.5 03/08/20 00:45 04/07/20 00:44 03/17/20 00:22 Amlodipine Besylate (Norvasc) 5 mg DAILY GT 03/06/20 09:00 04/05/20 08:59 03/17/20 09:31 Artificial Tears (Akwa-Tears) 2 drop Q6H PRN BOTH EYES Dry Eyes 03/06/20 06:00 04/05/20 05:59 Atorvastatin Calcium (Lipitor) 10 mg BEDTIME GT 03/06/20 21:00 06/04/20 20:59 03/16/20 21:24 Docusate Sodium (Colace) 100 mg BID PRN GT Constipation 03/08/20 00:45 04/07/20 00:44 Famotidine (Pepcid) 20 mg TWICE A DAY GT 03/06/20 09:00 06/04/20 08:59 03/17/20 09:30 Heparin Sodium (Porcine) (Heparin 5000 units/ml) 5,000 units EVERY 12 HOURS SUBQ 03/06/20 09:00 04/20/20 08:59 03/17/20 09:31 Hydralazine HCl (Apresoline) 10 mg EVERY 6 HOURS GT 03/06/20 06:00 06/04/20 05:59 03/17/20 12:13 Ibuprofen (Advil) 400 mg Q6H PRN ORAL Moderate Pain (Pain Scale 4-6) 03/06/20 06:30 04/05/20 06:29 03/16/20 21:24 Lactulose (Cephulac) 20 gm EVERY 6 HOURS PRN GT Constipation 03/08/20 00:30 04/07/20 00:29 03/09/20 17:18 Levetiracetam (Keppra) 500 mg Q12HR GT 03/06/20 09:00 04/05/20 08:59 03/17/20 09:30 Magnesium Hydroxide (Mom) 30 ml BID PRN GT Constipation 03/08/20 00:45 04/07/20 00:44 Meropenem 1 gm/ Sodium Chloride 55 ml @ 110 mls/hr Q8HR IVPB 03/14/20 22:00 03/19/20 21:59 03/17/20 05:20 Polyethylene Glycol (Miralax) 17 gm DAILY PRN GT Constipation 03/08/20 00:30 04/07/20 00:29 Rifaximin (Xifaxan) 550 mg TWICE A DAY ORAL 03/13/20 18:00 03/20/20 17:59 03/17/20 09:30 Vitamin D (Vitamin D) 5,000 intlu DAILY GT 03/07/20 09:00 04/06/20 08:59 03/17/20 10:47 Yeny Webb M.D. Mar 17, 2020 12:52
--- NOTE | 2020-03-17 13:47 | Surgery Progress Note ---
Surgery Progress Note Subjective Additional Comments afebrile, HD Stable labs okay exam unchanged Objective Last 24 Hour Vital Signs Date Time Temp Pulse Resp B/P (MAP) Pulse Ox O2 Delivery O2 Flow Rate FiO2 03/17/20 12:13 124/75 03/17/20 12:00 Mechanical Ventilator 03/17/20 11:44 98.1 73 20 124/75 (91) 98 03/17/20 11:20 72 11 30 03/17/20 09:31 66 117/79 03/17/20 08:08 98.8 66 15 117/79 (92) 97 03/17/20 08:01 Mechanical Ventilator 03/17/20 08:00 30 03/17/20 08:00 66 03/17/20 07:10 74 10 30 03/17/20 05:20 118/75 03/17/20 04:00 30 03/17/20 04:00 Mechanical Ventilator 03/17/20 04:00 99.0 71 15 118/75 (89) 97 03/17/20 03:49 71 03/17/20 02:13 85 18 30 03/17/20 00:52 99.6 03/17/20 00:23 117/74 03/17/20 00:00 77 03/17/20 00:00 100.6 75 20 117/74 (88) 96 03/17/20 00:00 Mechanical Ventilator 03/16/20 22:41 81 10 30 03/16/20 20:00 98.3 81 20 118/81 (93) 96 03/16/20 20:00 Mechanical Ventilator 03/16/20 20:00 30 03/16/20 19:28 81 03/16/20 19:17 93 14 30 03/16/20 17:35 127/79 03/16/20 16:00 81 03/16/20 16:00 98.7 70 21 127/79 (95) 96 03/16/20 16:00 30 03/16/20 16:00 Mechanical Ventilator 03/16/20 15:35 83 14 30 I&O Intake and Output 03/16/20 03/17/20 19:00 07:00 Intake Total 920 ml 970 ml Output Total 200 ml 300 ml Balance 720 ml 670 ml Intake Free Water 200 ml 200 ml IV Total 110 ml Tube Feeding 480 ml 660 ml Other 240 ml Output Urine Total 200 ml 300 ml # Voids 4 3 # Bowel Movements 4 Dressing: saturated Cardiovascular: RSR Respiratory: decreased breath sounds Abdomen: soft, non-tender, present bowel sounds Extremities: no tenderness, no cyanosis Laboratory Tests Test 03/17/20 03:10 White Blood Count 12.8 K/UL (4.8-10.8) H Red Blood Count 4.18 M/UL (4.20-5.40) L Hemoglobin 12.5 G/DL (12.0-16.0) Hematocrit 38.5 % (37.0-47.0) Mean Corpuscular Volume 92 FL (80-99) Mean Corpuscular Hemoglobin 30.0 PG (27.0-31.0) Mean Corpuscular Hemoglobin Concent 32.5 G/DL (32.0-36.0) Red Cell Distribution Width 12.1 % (11.6-14.8) Platelet Count 396 K/UL (150-450) Mean Platelet Volume 6.3 FL (6.5-10.1) L Neutrophils (%) (Auto) 66.6 % (45.0-75.0) Lymphocytes (%) (Auto) 24.7 % (20.0-45.0) Monocytes (%) (Auto) 5.8 % (1.0-10.0) Eosinophils (%) (Auto) 1.6 % (0.0-3.0) Basophils (%) (Auto) 1.3 % (0.0-2.0) Sodium Level 141 MMOL/L (136-145) Potassium Level 4.2 MMOL/L (3.5-5.1) Chloride Level 101 MMOL/L (98-107) Carbon Dioxide Level 38 MMOL/L (21-32) H Anion Gap 2 mmol/L (5-15) L Blood Urea Nitrogen 24 mg/dL (7-18) H Creatinine 0.6 MG/DL (0.55-1.30) Estimat Glomerular Filtration Rate > 60 mL/min (>60) Glucose Level 210 MG/DL (74-106) H Calcium Level 9.6 MG/DL (8.5-10.1) Plan Problems: (1) Sepsis Assessment & Plan: 51-year-old female multi medical committees care dependent trach PEG who has a leukocytosis lactic acidosis sepsis admitted further care and management tracheal secretions identified trachea stable. COVID has been negative on both PCR and standard test. On antibiotics microbiology noted. No acute surgical intervention indicated recommended at this time. The tracheos terra stable and unlikely etiology and she is ventilating well throughout. Secretions likely from a potential pneumonia but the chest x-ray was identified. Nutritional optimization continue tube feeds will monitor and continue to follow with recommendations (2) UTI (urinary tract infection) Assessment & Plan: abx as per pcp (3) Pneumonia (4) Cardiac arrest (5) Anemia (6) Diarrhea (7) Abdominal pain (8) Nosocomial pneumonia (9) Feeding by G-tube Assessment & Plan: tube okay cont feeds supplements meds okay DAILY ESTIMATED NEEDS: Needs based on Critical care 58kg abw 22-28 kcals/kg 4182-8562 total kcals 1.2-2 g protein/kg 70-116 g total protein 25-30 mL/kg 0806-6363 total fluid mLs NUTRITION DIAGNOSIS: Swallowing difficulty r/t respiratory status as evidenced by pt is vent dep via trach w/ PEG. CURRENT TF:VITAL AF 1.2 @ 60ml/hr x 20 hrs ENTERAL NUTRITION RECOMMENDATIONS: VITAL AF 1.2 @ 60ml/hr x 20 hrs to provide 1200ml, 1440kcal, 90g prot, 973ml free water - Rec Vital AF: pt on elemental (and soy based) formula of Vivonex EP TECH Per EMR, pt allergic to milk, unknown true allergy. Pt w/ good tolerance to Vital AF last admission in July 2018 without any side effects. Monitor for any signs of intolerance w/ Vital AF. It is also carb controlled (A1C 7.2). - Maintain EP TECH TF run time to x20 hrs for good TF tolerance - Continue goal rate of 60ml/hr x 20 hrs -> meets 100% est kcal/prot needs - Water flush of 120ml q 4 hrs - HOB over 30 degrees ADDITIONAL RECOMMENDATIONS: 1) MONITOR FOR SIGNS OF INTOLERANCE TO FORMULA VITAL AF PT ON SOY BASED FORMULA @ SNF, PT TOLERATED VITAL AF WELL LAST ADM 2) Per SNF: HT=62" and JB=304xvk (03/04/20) vs EMR wt =168lbs -> daily calibrated bedscale wt 3) Monitor lytes, replete as needed 4) NISS for BG control: A1C 7.2, elev BGs (10) Acute on chronic respiratory failure Saman Bruce Mar 17, 2020 13:47
--- NOTE | 2020-03-17 14:00 | NUR ---
NURSE NOTES: called family member to inform re discharge, spoken with Elvis Pina,verbalized understanding.
--- NOTE | 2020-03-17 14:15 | NUR ---
NURSE NOTES: Dr Webb at bedside,informed re pt's discharge ordered all isolations colonized.
--- NOTE | 2020-03-17 14:43 | NUR ---
NURSE NOTES: Dr Fox at bedside,updated re pt's status .
--- NOTE | 2020-03-17 14:55 | NUR ---
NURSE NOTES: Called out to [facility] ,report given to Pualine GHOSH,updated re pt's status,,Vital signs,vent settings,diet,and BM.Pt going to room 21-A at [facility].
--- NOTE | 2020-03-17 15:24 | Discharge Summary ---
Discharge Summary Discharge Summary _ This was was of several admission to [facility] of this 59 years old lady because of positive COVID-19 test History of present illness details of event is requested to return patient to be admitted to this medical unit can be found in the H&P in brief patient is a resident of [facility] subacute unit where she has been in stable condition for more than 1 year she is known to have several chronic medical syndrome but is been stable on her current medication on a routine screening of COVID-19 test that the subacute unit undergo every week she was found to have a positive PCR test because of lack of isolation room in the subacute unit patient was transferred to [facility] ER and was admitted hospital course upon admission patient underwent clinical biological and imaging study she was found to be afebrile hemodynamically stable and without any symptom several days into the admission patient developed leukocytosis without fever and left lower lobe pneumonia on chest x-ray she was placed on meropenem and for the next several days the WBC is did not decline however she remained consistently afebrile hemodynamically stable without any symptom and without tachycardia on the day of discharge WBC dropped from 14,000-12.8 as she is asymptomatic she can be managed easily in the subacute unit she will be transferred back to the [facility] where she would be seen as of 24 hours after discharge. Karissa Turcios MD, MD Mar 17, 2020 15:24
[2020-03-17 16:00] VITALS: BP 139/72
--- NOTE | 2020-03-17 17:00 | NUR ---
NURSE NOTES: bed bath given,kept dry and pulled up and repositioned for comfort.
--- NOTE | 2020-03-17 19:00 | NUR ---
HAND-OFF: Report given to Princess Benjamin pt for discharge awaiting arrival of [facility] ambulance..
--- NOTE | 2020-03-17 19:15 | NUR ---
NURSE NOTES: Received report from raisa Marrero. pT is seen lying in bed in semi-willis's position. Pt is flat affect able to follow simple commands and track eyes. pt has IV site on ERight wrist intact and patent. Colonized for isolation. With discharge orders per morning nurse. Report given to Pauline. 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 Packet already ready for discharge. Pt is with Gtube patent and intact. No any signs of respiratory distress and no fever noted.Awaiting for transportation. Continue to plan of care.
[2020-03-17 20:00] VITALS: BP 136/79
--- NOTE | 2020-03-17 21:00 | NUR ---
NURSE NOTES: Transportation came with RT, Pt belongings given. Report given to the transport,. VS wnl. IV discontinued and removed. O2 sat 100%. No signs of pain. Pt packet given. Report given to [facility] in the morning. Pt is stable transported via gurney safely.
--- NOTE | 2020-03-19 13:50 | Discharge Summary ---
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
--- NOTE | 2020-03-19 16:49 | NUR ---
CASE MANAGEMENT: Faxed clinical info (face sheet /DC summary) to [facility] @ FAX# [phone]
== END 2020-03-17 21:20 | DRG 720 ==
LOC: EDUNIT# 00:24 → EDBD 00:24 → EMR 00:40 → 2W 01:55 → EDBEDREQ 03:09 → 2W 05:38
PROC: 5A1955Z Respiratory Ventilation, Greater than 96 Consecutive Hours (ICD-10-PCS; principal; 2020-03-06)
DX: A41.9 Sepsis, unspecified organism (principal); J96.20 Acute and chronic respiratory failure, unspecified whether with hypoxia or hypercapnia; N39.0 Urinary tract infection, site not specified; U07.1 COVID-19; J12.89 Other viral pneumonia; I69.151 Hemiplegia and hemiparesis following nontraumatic intracerebral hemorrhage affecting right dominant side; I69.122 Dysarthria following nontraumatic intracerebral hemorrhage; G40.909 Epilepsy, unspecified, not intractable, without status epilepticus; B86 Scabies; Z93.0 Tracheostomy status; Z93.1 Gastrostomy status; I10 Essential (primary) hypertension; E78.5 Hyperlipidemia, unspecified; Z74.01 Bed confinement status; D64.9 Anemia, unspecified; Z86.74 Personal history of sudden cardiac arrest; I25.2 Old myocardial infarction; R19.7 Diarrhea, unspecified; R13.10 Dysphagia, unspecified; E55.9 Vitamin D deficiency, unspecified; I25.10 Atherosclerotic heart disease of native coronary artery without angina pectoris
CPT/HCPCS: 36415; 71045; 80048; 80053; 80076; 80202; 81001; 81003; 82140; 82550; 82553; 82728; 83036; 83605; 83615; 83690; 83880; 84484; 85025; 85379; 85610; 85730; 86140; 87040; 87070; 87081; 87086; 87181; 87205; 93005; 93306; 94002; 94003; 94664; 96361; 96365; 96367; 99285; J7030; U0002